=== PATIENT | male | born 1975 | race Caucasian/White ===

== ENCOUNTER 2019-02-11 03:29 | Emergency (ER) | payer BC ==
[~2019-02-11] VITALS: Ht 188 cm; Wt 131.5 kg
[~2019-02-11 03:29] MED LIST: BACTRIM DS TAB1 EACH PO; FLEXERIL10 MG PO; GABAPENTIN100 MG PO; IBUPROFEN800 MG PO; KEFLEX500 MG PO; LOVASTATIN20 MG PO; NAPROSYN500 MG PO; NORCO 5-325 TA1 EACH PO; VITAMIN D3400 UNIT PO; WAL-PROFEN200 MG PO; ZITHROMAX250 MG PO
--- OUTSIDE RECORDS SUMMARY | 2019-02-11 03:32 | XMS ---
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 Patrica VISIT COUNT (12 MO.) 2 Gissel Lozano TOTAL 5 NOTE: Visits indicate total known visits. 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 [facility] [place] TYPE: Emergency DIAGNOSES: - poss hernia - Groin Pain - Unilateral inguinal hernia, without obstruction or gangrene, not specified as recurrent 07/16/2018 01:46 [facility] [place] TYPE: Emergency COMPLAINT: - LOW BACK PAIN DIAGNOSES: - Other retirement (current) drug therapy - Low back pain - Allergy status to other drugs, medicaments and biological substances status - Spinal stenosis, lumbar region without neurogenic claudication 03/01/2018 18:41 [facility] DIAGNOSES: - Noninfective gastroenteritis and colitis, unspecified - Disease of anus and rectum, unspecified - Abdominal Pain - abd pain INPATIENT VISIT TRACKING (12 MO.) No inpatient visits to display in this time frame [email or web address]
[2019-02-11] MEDS ORDERED: PERCOCET 5-3251 EACH PO (05:35)
[2019-02-11] MEDS ORDERED: FLOMAX0.4 MG PO (05:35)
== END 2019-02-11 05:50 | disposition home or self-care (01) ==
LOC: ED 03:29
DX: N20.1 Calculus of ureter (principal); Z87.442 Personal history of urinary calculi; Z88.8 Allergy status to other drugs, medicaments and biological substances; Z79.899 Other long term (current) drug therapy
CPT/HCPCS: 72131; 74176; 81001; 96372; 99284-25; J1885

== ENCOUNTER 2019-09-01 15:16 | Emergency (ER) | payer BC ==
[~2019-09-01] VITALS: Ht 188 cm; Wt 131.5 kg
--- OUTSIDE RECORDS SUMMARY | ~2019-09-01 | XMS | Encounter Summary ---
Demographics + + + | Address | [address] | | | [place] [address] | + + + | Home Phone | | + + + | Preferred Language | Unknown | + + + | Marital Status | | + + + | Adventist Affiliation | Unknown | + + + | Race | Unknown | + + + | Ethnic Group | Unknown | + + + Author + + + | Author | [facility] | | | and [place] | + + + | Organization | [facility] | | | and [place] | + + + | Address | Unknown | + + + | Phone | Unavailable | + + + Support + + + + + | Name | Relationship | Address | Phone | + + + + + | Alma Gramajo | ECON | [address] | | | | | [place] [address] | | + + + + + Care Team Providers + +------+ + | Care Optometric Tech Name | Role | Phone | + +------+ + | Priyanka Sal PA-C | PCP | | + +------+ + Encounter Details +--------+ + + + + | Date | Type | Department | Care Team | Description | +--------+ + + + + | 09/15/ | Orders Only | [facility] [place] | Emil Garcia, | Back pain, | | 2016 | | NEUROSURGERY [address] | DO [address] | unspecified back | | | | [address] | [address] [place], [place] | pain laterality, | | | | [place], [place] | [address] | unspecified location | | | | [address] | | (Primary Dx) | | | | [phone] | | | +--------+ + + + + Social History + +-------+ +--------+------+ | Tobacco Use | Types | Packs/Day | Years | Date | | | | | Used | | + +-------+ +--------+------+ | Never Smoker | | | | | + +-------+ +--------+------+ + + +---------+ + | Alcohol Use | Drinks/Week | oz/Week | Comments | + + +---------+ + | No | | | | + + +---------+ + + + + | Sex Assigned at | Date Recorded | | | | + + + | Not on file | | + + + + + + + | Job Start Date | Occupation | Industry | + + + + | Not on file | Not on file | Not on file | + + + + + + + + | Travel History | Travel Start | Travel End | + + + + + + | No recent travel history available. | + + documented as of this encounter Plan of Treatment Not on filedocumented as of this encounter Results XR Lumbar Spine 4 + Vw (09/18/2015 2:24 PM PST) + + | Specimen | + + | | + + + + + | Narrative | Performed At | + + + | XR LUMBAR SPINE 4 + VW. 09/18/2015 2:24 PM HISTORY: back pain . | [facility] | | COMPARISON: CT lumbar spine 08/24/2015 and lumbar spine x-ray | [facility] | | 11/25/2013 FINDINGS: Posterior spinal fusion hardware again seen | [facility] | | at the levels of T11-T12, with disc spacer at the intervening level, | - IMAGING | | without evidence of hardware complication or subsidence. Vertebral | | | body alignment is maintained at the fused levels. There is | | | exaggeration of the lumbar lordosis. There is retrolisthesis of L2 on | | | L3 on the upright neutral view, which is stable on the flexion view | | | and increases on the extension view. There is degenerative disc | | | disease, greater in the upper lumbar spine. Vertebral body heights | | | are maintained. Facet degenerative hypertrophy, greater in the lower | | | lumbar spine. IMPRESSION - Degenerative disc disease and | | | spondylotic change. Exaggeration of the lumbar lordosis. | | | Retrolisthesis of L2 on L3, stable on the flexion view and increasing | | | on the extension view. Dictated and Signed by: Rico Landers | | | Electronically signed: 09/18/2015 5:05 PM | | + + + + + | Procedure Note | + + | Raoul, Rad Results In - 09/18/2015 5:09 PM PST XR LUMBAR SPINE 4 + VW. 09/18/2015 2:24 | | PMHISTORY: back pain . COMPARISON: CT lumbar spine 08/24/2015 and lumbar spine x-ray | | 11/25/2013FINDINGS:Posterior spinal fusion hardware again seen at the levels of T11-T12, | | with discspacer at the intervening level, without evidence of hardware complication | | orsubsidence. Vertebral body alignment is maintained at the fused levels.There is | | exaggeration of the lumbar lordosis.There is retrolisthesis of L2 on L3 on the upright | | neutral view, which is stableon the flexion view and increases on the extension | | view.There is degenerative disc disease, greater in the upper lumbar spine. Vertebral | | body heights are maintained.Facet degenerative hypertrophy, greater in the lower lumbar | | spine.IMPRESSION -Degenerative disc disease and spondylotic change.Exaggeration of the | | lumbar lordosis.Retrolisthesis of L2 on L3, stable on the flexion view and increasing on | | theextension view.Dictated and Signed by: Rico Landers MD Electronically signed: | | 09/18/2015 5:05 PM | |There is degenerative disc disease, greater in the upper lumbar spine. | |Vertebral body heights are maintained. | |Facet degenerative hypertrophy, greater in the lower lumbar spine. | | | | | |IMPRESSION - | |Degenerative disc disease and spondylotic change. | |Exaggeration of the lumbar lordosis. | |Retrolisthesis of L2 on L3, stable on the flexion view and increasing on the | |extension view. | | | |Dictated and Signed by: Rico Landers MD | | Electronically signed: 09/18/2015 5:05 PM | + + + + + + + | Performing | Address | City/State/Zipcode | Phone Number | | Organization | | | | + + + + + | [facility] | [address] | [place] | [phone] | | [facility] | | [address] | | | - IMAGING | | | | + + + + + documented in this encounter Visit Diagnoses + + | Diagnosis | + + | Back pain, unspecified back pain laterality, unspecified location - Primary | + + documented in this encounter"
--- OUTSIDE RECORDS SUMMARY | ~2019-09-01 | XMS | Encounter Summary ---
Demographics + + + | Address | [address] | | | [place] [address] | + + + | Home Phone | | + + + | Preferred Language | Unknown | + + + | Marital Status | | + + + | Judaism Affiliation | Unknown | + + + | Race | Unknown | + + + | Ethnic Group | Unknown | + + + Author + + + | Author | [facility] | | | and [place] | + + + | Organization | [facility] | | | and [place] | + + + | Address | Unknown | + + + | Phone | Unavailable | + + + Support + + + + + | Name | Relationship | Address | Phone | + + + + + | Alma Gramajo | ECON | [address] | | | | | [place] [address] | | + + + + + Care Team Providers + +------+ + | Care Rough Planer Tender Name | Role | Phone | + +------+ + | Priyanka Sal PA-C | PCP | | + +------+ + Reason for Visit + + + | Reason | Comments | + + + | Procedure | Changes | + + + Encounter Details +--------+ + + + + | Date | Type | Department | Care Team | Description | +--------+ + + + + | 01/07/ | Telephone | [facility] | Emil Garcia, | Procedure (Changes ) | | 2017 | | NEUROSURGERY [address] | DO [address] | | | | | [address] | [address] [place], [place] | | | | | [place], [place] | [address] | | | | | [address] | | | | | | [phone] | | | +--------+ + + + + Social History + +-------+ +--------+------+ | Tobacco Use | Types | Packs/Day | Years | Date | | | | | Used | | + +-------+ +--------+------+ | Never Smoker | | | | | + +-------+ +--------+------+ + +---+---+---+ | Smokeless Tobacco: | | | | | Current User | | | | + +---+---+---+ + + | Comments: 2 cans of chew/week. | + + + + +---------+ + | Alcohol Use [...] Not on filedocumented as of this encounter Visit Diagnoses Not on filedocumented in this encounter"
--- OUTSIDE RECORDS SUMMARY | ~2019-09-01 | XMS | Encounter Summary ---
Demographics + + + | Address | [address] | | | [place] [address] | + + + | Home Phone | | + + + | Preferred Language | Unknown | + + + | Marital Status | | + + + | Synagogue Affiliation | Unknown | + + + | Race | Unknown | + + + | Ethnic Group | Unknown | + + + Author + + + | Author | [facility] | | | and [place] | + + + | Organization | [facility] | | | and [place] | + + + | Address | Unknown | + + + | Phone | Unavailable | + + + Support + + + + + | Name | Relationship | Address | Phone | + + + + + | Alma Gramajo | ECON | [address] | | | | | [place] [address] | | + + + + + Care Team Providers + +------+ + | Care Production Pattern Maker Name | Role | Phone | + +------+ + | Priyanka Sal PA-C | PCP | | + +------+ + Reason for Visit +---------+ + | Reason | Comments | +---------+ + | Post Op | 4W PO | +---------+ + Encounter Details +--------+---------+ + + + | Date | Type | Department | Care Team | Description | +--------+---------+ + + + | 03/13/ | Office | [facility] | Berhane Chavez, | S/P lumbar fusion | | 2017 | Visit | [address]UR[address]UR[address]ERY [address] | PA-C [address] | (Primary Dx) | | | | [address] | [address] [place] | | | | | [place], [place] | [place] [address] | | | | | [address] | [phone] | | | | | [phone] | | | +--------+---------+ + + + Social History + +-------+ [...] + + documented as of this encounter Last Filed Vital Signs + + + + + | Vital Sign | Reading | Time Taken | Comments | + + + + + | Blood Pressure | 120/69 | 03/13/2017 1:37 PM | | | | | PDT | | + + + + + | Pulse | 66 | 03/13/2017 1:37 PM | | | | | PDT | | + + + + + | Temperature | - | - | | + + + + + | Respiratory Rate | - | - | | + + + + + | Oxygen Saturation | - | - | | + + + + + | Inhaled Oxygen | - | - | | | Concentration | | | | + + + + + | Weight | 132 kg (291 lb) | 03/13/2017 1:37 PM | | | | | PDT | | + + + + + | Height | 188 cm (6' 2") | 03/13/2017 1:37 PM | | | | | PDT | | + + + + + | Body Mass Index | 37.36 | 03/13/2017 1:37 PM | | | | | PDT | | + + + + + documented in this encounter Functional Status + + + + | Functional Status | Response | Date of Assessment | + + + + | Are you deaf or do you have serious | No | 02/09/2017 | | difficulty hearing? | | | + + + + | Are you blind or do you have serious | No | 02/09/2017 | | difficulty seeing, even when wearing | | | | glasses? | | | + + + + | Do you have serious difficulty walking or | No | 02/09/2017 | | climbing stairs? (5 years old or older) | | | + + + + | Do you have difficulty dressing or bathing? | No | 02/09/2017 | | (5 years old or older) | | | + + + + | Because of a physical, mental, or emotional | No | 02/09/2017 | | condition, do you have difficulty doing | | | | errands alone such as visiting a doctor's | | | | office or shopping? [15 years old or | | | | older)] | | | + + + + + + + + | Cognitive Status | Response | Date of Assessment | + + + + | Because of a physical, mental, or emotional | No | 02/09/2017 | | condition, do you have serious difficulty | | | | concentrating, remembering, or making | | | | decisions? (5 years old or older) | | | + + + + documented as of this encounter Patient Instructions Patient Instructions Alecia Burns, Manager Metrology - 03/13/2017 1:30 PM PDTYou may no w slowly increase your lifting up to 15 pounds as tolerated. You may now reach overhead but it should only be 1-2 pounds. Please refrain from twisting for the next 8 weeks. Lastly, you will see Dr. Garcia in approximately 2 months where a new x-ray will be taken at that time. In the meantime, you can also begin to wean out of your brace as instructed below. SPINE BRACE WEANING PROTOCOL (5 WEEKS) Below are instructions for weaning your brace. You can move through the weeks slower if yo u feel the need to do so, but the overall goal is to get you out of the brace slowly over th e next several weeks. WEEK 1 If you have been using your brace for activities like sleeping, showering, do not use the [employer] for these activities any longer but continue using it for everything else. WEEK 2 Stop wearing your brace for sitting and short distance walking. You should use the brace f or anything more involved. WEEK 3 Stop using the brace for medium distance walking. You can bend and twist your back but sti ll proceed slowly with these activities. WEEK 4 Stop using the brace for everything but the most difficult tasks. You should now be able to go on long walks and lift more weight as directed. Add more bending and twisting as tolera augusto. WEEK 5 Stop using the brace for daily use. I would encourage you to use the brace in the future f or activities that you know might aggravate your back or cause pain. 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 documented in this encounter Progress Notes Berhane Chavez PA - 03/13/2017 1:30 PM PDTFormatting of this note might be different f rom the original. LAMIN Lindsay [address] [facility], [address] [place], [place] [address] FAX: NEUROSURGERY FOLLOW-UP CHIEF COMPLAINT: Chief Complaint Patient presents with Post Op 4W PO HISTORY OF PRESENT ILLNESS: The patient is a 41 y.o. male that had a lumbar fusion for chente k and leg symptoms around 4 weeks ago. He returns and overall is doing well. The patient c omplains of mild back and leg discomfort. The patient has been walking as much as directed . He is still taking pain medications at this point. The patient states he is taking pain medication at bedtime because it helps him relax and decrease his pain. The patient has had no issues with his surgical site. CURRENT MEDICATIONS: Current Outpatient Prescriptions Medication Sig Dispense Refill Ergocalciferol (VITAMIN D2) 2000 units TABS Take 2,000 Units by mouth Daily. lactulose 10 g/15 mL liquid Take 15-30 mLs by mouth Daily as needed for Constipation. 2 40 mL 2 lovastatin (MEVACOR) 20 mg tablet Take 40 mg by mouth nightly. oxyCODONE 10 MG TABS Take 1-2 tablets by mouth every 4 hours as needed for Pain (muscle spasm). 120 tablet 0 No current facility-administered medications for this visit. ALLERGIES: Allergies Allergen Reactions Diazepam Anaphylaxis and Hives SOCIAL HISTORY: The patient reports that he has never smoked. He uses smokeless tobacco. He reports that gabriele whitten does not drink alcohol or use drugs. INTERIM PHYSICAL EXAMINATION: Blood pressure 120/69, pulse 66, height 1.88 m (6' 2"), weight 132 kg (291 lb). Body mass i ndex is 37.36 kg/m. GENERAL: Zaheer Gramajo is in no acute distress with unlabored respirations. SPINE: The patient s incisions are healing well without drainage, significant erythema, o r discharge. EXTREMITIES: No lower extremity edema. NEUROLOGICAL EXAMINATION: MENTAL STATUS: The patient is awake, alert, and oriented. He follows simple and complex commands MOTOR EXAM: Motor strength is 5/5. This is improved when compared to the preoperative exam . SENSORY EXAM: The sensory examination is unchanged when compared to the preoperative exam. REVIEW OF SYSTEMS GENERALLY: No fever, no night sweats, no anemia, + fatigue, no recent profound weight larry nges. EYES: No eye problems, no use of corrective lenses, no eye injury, no double vision, no bl indness. EARS, NOSE, AND THROAT: No changes in taste or smell, no hearing difficulty, no ringing in the ears, no ear drainage, no dizziness, no voice changes, no difficulty swallowing, no sig nificant snoring, no sleep apnea, no sinus problems, no major dental work. NEUROLOGICALLY: Please see the review of systems discussed above in the history of present illness. In addition, the patient has numbness and pain of legs, weakness, coordination di fficulty, change in walk, pain in back, shaking, heacheas. PSYCHIATRIC: No depression, no sleep disorders, no anxiety, no bipolar disorder, no psycho tic episodes. CARDIOVASCULAR: No heart attacks, no heart murmur, no heart fluttering, no chest pain, + a nkle swelling. LUNG DISEASE: No shortness of breath, no cough, no tuberculosis, no bloody cough, no asth ma, no emphysema/COPD. GASTROINTESTINAL: No bowel disease, no nausea or vomiting, no rectal bleeding, no constipa tion, no stool incontinence, no liver disease, no gallbladder disease, + abdominal pain, no ulcers. KIDNEY DISEASE: No urinary frequency, no painful or difficult urination, no incontinence. ENDOCRINE: No diabetes, no thyroid disease, no osteopenia or osteoporosis, no breast drain age. SKIN: No breast lumps, no skin changes, + rashes, + itches. HEMATOLOGIC/LYMPHATIC: No enlarged lymph nodes, no easy or unusual bleeding, no personal h istory of cancer. RHEUMATOLOGIC: No joint arthritis, no rheumatoid arthritis. RADIOGRAPHIC REVIEW: The patient s x-rays show stable instrumentation and alignment and were reviewed with the patient today. There have been no interval changes since the immediate postoperative films . Complete fusion has not yet occurred, but this is normal and would not be expected at thi s time. ASSESSMENT: Encounter Diagnosis Name Primary? 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 The patient can see some improvements but continues to recover from recent surgery. I increased the patient s activities now allowing 15 pound lifting. The patient and also will begin the process of brace weaning. They should continue regular exercise and strengt hening with the hope that they can avoid additional surgery. We discussed that we can provide pain medications for up to 90 days after their surgical da te. We discussed the need to continue tapering pain medication. If they need longer term p ain medication, they should begin working on either pain management or with the primary care provider. I am hoping to see improvement over the coming weeks to months and plan to continue to foll ow this patient. The patient will follow-up in clinic in around 8 weeks for re-evaluation. ELECTRONICALLY SIGNED BY: LAMIN Lindsay, 03/13/2017 14:03 documented in this encounter Plan of Treatment Not on filedocumented as of this encounter Results XR Lumbar Spine 2 or 3 Vw (05/28/2017 7:38 AM PDT) + + | Specimen | + + | | + + + + + | Narrative | Performed At | + + + | EXAM:XR LUMBAR SPINE 2 OR 3 VW CLINICAL HISTORY: Postop | [facility] | | COMPARISON: Lumbar spine radiograph dating to February 05, 2017 | | | FINDINGS: Posterior and interbody fusion changes at L3-L4. Intact | | | hardware. No change in position of the interbody graft markers. | | | No change in spinal alignment. No interval compression | | | deformities. Calcification projects over the left renal shadow. | | | IMPRESSION - No radiographic evidence for an interval | | | complication. Dictated and Signed by: Aj Monahan MD | | | Electronically signed: 05/28/2017 8:28 AM | | + + + + + | Procedure Note | + + | Deo Silveira Results In - 05/28/2017 8:31 AM PDT EXAM:XR LUMBAR SPINE 2 OR 3 VW | | | | CLINICAL HISTORY: Postop | | | | COMPARISON: Lumbar spine radiograph dating to February 05, 2017 | | | | FINDINGS: Posterior and interbody fusion changes at L3-L4. Intact hardware. No | | change in position of the interbody graft markers. No change in spinal | | alignment. No interval compression deformities. Calcification projects over | | the left renal shadow. | | | | IMPRESSION - | | | | No radiographic evidence for an interval complication. | | | | Dictated and Signed by: Aj Monahan MD | | Electronically signed: 05/28/2017 8:28 AM | + + + +---------+ + + | Performing | Address | City/State/Zipcode | Phone Number | | Organization | | | | + +---------+ + + | [facility] | | | | + +---------+ + + documented in this encounter Visit Diagnoses + + | Diagnosis | + + | S/P lumbar fusion - Primary Arthrodesis status | + + documented in this encounter
--- OUTSIDE RECORDS SUMMARY | ~2019-09-01 | XMS | Encounter Summary ---
Demographics + + + | Address | [address] | | | [place] [address] | + + + | Home Phone | | + + + | Preferred Language | Unknown | + + + | Marital Status | | + + + | Jew Affiliation | Unknown | + + + | Race | Unknown | + + + | Ethnic Group | Unknown | + + + Author + + + | Author | [facility] | | | and [place] | + + + | Organization | [facility] | | | and [place] | + + + | Address | Unknown | + + + | Phone | Unavailable | + + + Support + + + + + | Name | Relationship | Address | Phone | + + + + + | Alma Gramajo | ECON | [address] | | | | | [place] [address] | | + + + + + Care Team Providers + +------+ + | Care Stunt Person Name | Role | Phone | + +------+ + | Priyanka Sal PA-C | PCP | | + +------+ + Reason for Referral Diagnostic/Screening (Routine) +--------+--------+ + + + + | Status | Reason | Specialty | Diagnoses / | Referred By | Referred To | | | | | Procedures | Contact | Contact | +--------+--------+ + + + + | Closed | | Radiology | Diagnoses | Sucharda, | [facility] | | | | | Fusion of | Berhane Ramon, | [address] | | | | | spine of | MIKE [address] | [place], | | | | | thoracic | [address] | [place] | | | | | region | [address] | [address] | | | | | Spondylolist | [place], | Phone: | | | | | hesis of | [place] [address] | [phone] | | | | | lumbar | Phone: | Fax: | | | | | region | [phone] | [phone] | | | | | Myelopathy | Fax: | | | | | | ([facility]) | [phone] | | | | | | Procedures | | | | | | | MRI Lumbar | | | | | | | Spine wo | | | | | | | Contrast | | | +--------+--------+ + + + + Diagnostic/Screening (Routine) +--------+--------+ + + + + | Status | Reason | Specialty | Diagnoses / | Referred By | Referred To | | | | | Procedures | Contact | Contact | +--------+--------+ + + + + | Closed | | Radiology | Diagnoses | Sucharda, | [facility] | | | | | Fusion of | Berhane E, | [address] | | | | | spine of | PA-C [address] | [place], | | | | | thoracic | [address] | [place] | | | | | region | [address] | [address] | | | | | Spondylolist | [place], | Phone: | | | | | hesis of | [place] [address] | [phone] | | | | | lumbar | Phone: | Fax: | | | | | region | [phone] | [phone] | | | | | Myelopathy | Fax: | | | | | | ([facility]) | [phone] | | | | | | Procedures | | | | | | | MRI Thoracic | | | | | | | Spine wo | | | | | | | Contrast | | | +--------+--------+ + + + + Reason for Visit + + + | Reason | Comments | + + + | Follow-up | Back pain Long return | + + + Evaluate & Treat (Routine) +--------+--------+ + + + + | Status | Reason | Specialty | Diagnoses / | Referred By | Referred To | | | | | Procedures | Contact | Contact | +--------+--------+ + + + + | Closed | | Neurosurgery | Diagnoses | Jonelle, | Radha, | | | | | | MIKE Mathew | Emil Aleman DO | | | | | Radiculopath | [address] | [address] | | | | | y, lumbar | [place] | [address] | | | | | region | [address] | [place] | | | | | Procedures | [place], | [address] Phone: | | | | | [place] OFFICE | [place] [address] | [phone] | | | | | CONSULTATION | Phone: | Fax: | | | | | NEW/ESTAB | [phone] | [phone] | | | | | PATIENT 60 | Fax: | | | | | | MIN OK TO | [phone] | | | | | | SCHEDULE | | | +--------+--------+ + + + + Encounter Details +--------+---------+ + + + | Date | Type | Department | Care Team | Description | +--------+---------+ + + + | 01/18/ | Office | [facility] | Scott Berhane Fish, | Fusion of spine of | | 2016 | Visit | NEUROSURGERY [address] | PA-C [address] | thoracic region | | | | [address] | [address] [place] | (Primary Dx); | | | | [place], [place] | [place] [address] | Spondylolisthesis of | | | | [address] | [phone] | lumbar region; | | | | [phone] | | Myelopathy (HCC) | +--------+---------+ + + + Social History [...] | | + +---+---+---+ + + | Tobacco Cessation: Ready to Quit: No | + + + + +---------+ + [...] + + + | Blood Pressure | 128/80 | 09/18/2015 2:52 PM | | | | | PST | | + + + + + | Pulse | 64 | 09/18/2015 2:52 PM | | | | | PST | | + + + + + | Temperature | - | - | | + + + + + | Respiratory Rate | 20 | 09/18/2015 2:52 PM | | | | | PST | | + + + + + | Oxygen Saturation | - | - | | + + + + + | Inhaled Oxygen | - | - | | | Concentration | | | | + + + + + | Weight | 136.1 kg (300 lb) | 09/18/2015 2:52 PM | | | | | PST | | + + + + + | Height | 188 cm (6' 2") | 09/18/2015 2:52 PM | | | | | PST | | + + + + + | Body Mass Index | 38.52 | 09/18/2015 2:52 PM | | | | | PST | | + + + + + documented in this encounter Patient Instructions Patient Instructions Berhane Chavez PA - 09/18/2015 3:37 PM PSTPlease continue to mode rate your activities as tolerated. Please continue with the light duty restrictions that yo u have been given. We will get an MRI of your thoracic and lumbar spine. I will see you af ter the studies are done to review the studies and discuss treatment options. documented in this encounter Progress Notes Berhane Chavez PA - 09/18/2015 3:18 PM PSTFormatting of this note might be different f rom the original. LAMIN Lindsay [address] [facility], [address] [place] [address] FAX: NEUROSURGERY FOLLOW-UP CHIEF COMPLAINT: Chief Complaint Patient presents with Follow-up Back pain Long return HISTORY OF PRESENT ILLNESS: The patient is a 40 y.o. male that had a T11-T12 fusion by Dr. Radha ty in 2013. At this time patient had significant disc rupture that caused myelopa thy. Prior to surgery patient felt that there was tingling in the affected leg. After surg johnathan the sensation in his leg improved but he felt that there was weakness. Symptoms ultimat andrae partially improved and was functional but quadriceps weakness is always present. Patien hal continued with physical therapy and has gone at least once a week since surgery. Patient' s daily symptoms were stable until August 2014 when he was lifting a box at his job at the [employer]. While lifting this box and twisting he felt a pop in his back and felt sudden onset of severe pain and pain shooting down both legs. Since August his left leg s ymptoms have gone. However, he continues to have right leg pain. Although he did have weak ness after his last surgery he did not have much pain in the right leg. Patient has a hard time specifying the exact location of pain in his leg. The pain seems to encompass his enti re leg. The pain in his leg is intermittent and is described as numbing tingling and aching . The pain in his back is constant and is rated as moderate. He has continued with physica l therapy and has been taking anti-inflammatories, muscle relaxers, and intermittent narcoti c medication. These do give him partial temporary relief. He is currently on light duty an d has only been handling objects up to about 5 pounds, mostly letters and magazines. Leilani khan, he reports that his written restrictions allow him to lift 40 pounds. 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 gabapentin (NEURONTIN) 300 mg capsule Take 300 mg by mouth Once a week. HYDROcodone-acetaminophen (NORCO) 5-325 mg per tablet Take 1-2 tablets by mouth every 4 hours as needed for Pain. 20 tablet 0 ibuprofen (ADVIL,MOTRIN) 600 MG tablet lovastatin (MEVACOR) 20 mg tablet No current facility-administered medications for this visit. ALLERGIES: No Known Allergies SOCIAL HISTORY: The patient reports that he has never smoked. He uses smokeless tobacco. He reports that h fish does not drink alcohol or use illicit drugs. FAMILY HISTORY: Family History Problem Relation Age of Onset Other (See Comment) Mother Heart problems Cancer Paternal Grandmother Other (See Comment) Paternal Grandfather Heart problems INTERIM PHYSICAL EXAMINATION: Blood pressure 128/80, pulse 64, resp. rate 20, height 1.88 m (6' 2"), weight 136.079 kg (3 00 lb). Body mass index is 38.5 kg/(m^2). GENERAL: Zaheer Gramajo is in no acute distress with unlabored respirations. HEENT: HEAD/FACE: Normocephalic and atraumatic. There are no areas of recent trauma. CHEST: Clear to ausculation without crackles or wheeze. HEART: Regular rate and rhythm without murmurs. SPINE: The patient s incisions are healed well. There is no evidence of drainage or infe ction. EXTREMITIES: No lower extremity edema. NEUROLOGICAL EXAMINATION: MENTAL STATUS: The patient is awake, alert, and oriented. He follows simple and complex commands MOTOR EXAM: Motor strength is 4/5. This is diminished from the one month postoperative exa m. SENSORY EXAM: The sensory examination diminished from the one month postop exam REFLEXES: Reflexes are unchanged from his preoperative history and physical. NEUROLOGICAL EXAM: MENTAL STATUS: The patient is awake, alert, and oriented. He follows simple and complex commands. His speech is fluent, he comprehends speech well, and he repeats well. He has no apparent deficits with short or prison memory. CRANIAL NERVES: II: Acuity is intact. Enamorado are full to confrontation. III, IV, : The pupils are reactive. Extraocular movements are intact. No ptosis is note d. V: Facial sensation is intact and symmetric. VII: Facial movements are symmetric. VIII: Hearing is intact bilaterally. IX, X: The uvula and palate move appropriately. XI: Shrug is equal bilaterally. XII: Tongue protrusion is midline. MOTOR EXAM: (5 IS NORMAL) * Indicates pain limited MUSCLE/ MOVEMENT: RIGHT LEFT Deltoids 5 5 Biceps 5 5 Triceps 5 5 Wrist Flexion 5 5 Wrist Extension 5 5 Median Intrinsics 5 5 Ulnar Intrinsics 5 5 Ball Rolling Machine Operator Strength 5 5 Hip Flexion 4 5 Hip Extension 5 5 Knee Flexion 4 5 Knee Extension 4+ 5 Dorsiflexion 4 5 Extensor Hallicus Longus 5 5 Plantarflexion 4+ 5 SENSORY EXAM: Sensory exam shows diminished sensation to light touch or pain throughout the right lower extremity. REFLEXES: (2 OR 2+ IS NORMAL) REFLEX: RIGHT LEFT BICEPS 2+ 2+ BRACHIORADIALIS 2+ 2+ TRICEPS 2+ 2+ PATELLAR 2+ 2+ ACHILLES absent 2+ ROY'S ABSENT ABSENT PLANTAR DOWNGOING DOWNGOING GAIT: Gait is steady. PERIPHERAL NERVE/MISC: Tinel is negative at the wrists and elbows bilaterally. Phalen is negative. Straight leg raise is negative bilaterally. Javier's test of the hips is negative bilaterally. Significant right foot clonus with sustained repetitive pulsations. History of myelopathy was noted on exam prior to surgery. I suspect this clonus was present prior as well but was unable to identify specific documentation with regards to this. RADIOGRAPHIC REVIEW: The patient s postoperative x-rays show stable instrumentation and alignment and were rev iewed with the patient today during the visit. There is no evidence of hardware failure at the T11-T12 fusion site. A lumbar CAT scan was obtained on August 24. However, this very poorly captures the hardware and only shows a portion of the T12 screws. For the portion t hat is visible, no evidence of hardware failure is appreciated. Flexion and extension views from September 18, 2015 show evidence of spondylolisthesis L2-L3 area and L1-L2 there is moderate degenerative disc disease with disc space narrowing. I hav e compared these with lumbar films prior to surgery and no evidence of spondylolisthesis was present. ASSESSMENT: Encounter Diagnoses Name Primary? Fusion of spine of thoracic region Yes Spondylolisthesis of lumbar region Myelopathy (HCC) Past Medical History Diagnosis Date H/O blood clots H/O spinal cord compression Gout Cauda equina syndrome (HCC) Constipation Constipation, outlet dysfunction Hyperlipoproteinemia Lumbar radiculopathy Male erectile disorder due to physical condition Obesity Spinal stenosis, lumbar Deep venous thrombosis (HCC) Lower extremities Vitamin D deficiency PLAN: Overall, the patient is doing fair. There is definite right leg weakness that was previous ly recorded as normal after surgery. Furthermore, patient still has fairly significant myel opathic findings his right lower extremity. This, in combination with new recent trauma sup ports the need for further investigation. Unfortunately the CAT scan of the lumbar spine wa s not very helpful for us. I have gone ahead and ordered an MRI of his thoracic and lumbar spine. Patient will return to our office to review studies and discuss treatment options. I would recommend that he stay on light duty. The actual activities that involve lifting o f 5-7 pounds is probably appropriate. However I would not encourage him to be lifting up to 40 pounds as he reports his current restrictions are listed. Furthermore, patient has been cautioned against doing any lifting overhead. If there are any questions, I will be happy to see him on an as-needed basis. Otherwise, we will proceed as recommended. ELECTRONICALLY SIGNED BY: LAMIN Lindsay, 09/19/2015 7:52 documented in this encounter Plan of Treatment Not on filedocumented as of this encounter Results MRI Lumbar Spine wo Contrast (04/16/2016 3:12 PM PDT) + + | Specimen | + + | | + + + + + | Narrative | Performed At | + + + | MRI LUMBAR SPINE WITHOUT CONTRAST: 04/16/2016 2:47 PM CLINICAL | [facility] | | HISTORY: Status post thoracic spine fusion with new radicular symptoms | [facility] | | and myelopathy COMPARISON: 05/18/2013, CT lumbar spine 08/24/2015 | [facility] | | and MRI thoracic spine performed this date. TECHNIQUE: In the 3T | - IMAGING | | scanner multiplanar, multisequence imaging of the lumbar spine is | | | performed. FINDINGS: In contrast to designation on prior | | | examinations, there is transitional lumbar anatomy. When counting | | | down from C2 on recent thoracic spine MRI, only 11 rib-bearing | | | thoracic vertebral bodies are present. T12 shows tiny or absent ribs, | | | and there are only 4 lumbar-type vertebral bodies. Because of this, | | | posterior pedicle screw and magali fixation previously referred to as | | | being at T11-T12, is actually at T10-T11. Noting this, for this | | | examination, previously utilized segment numbering is maintained | | | consistent with prior exams, with the last segmented vertebral body | | | referred to as L5. Lumbar alignment is normal. Vertebral body | | | heights are normally maintained. Small hemangioma in L4. No other | | | marrow signal abnormality. Conus medullaris appears normal, | | | extending to L2. Cauda equina nerve roots are mildly thickened, | | | similar to prior. No abnormalities in the included abdomen. L1-L2 | | | and L2-L3: Sagittal images only. Minimal broad-based disc bulge. | | | Central canal appears developmentally narrow. L3-L4: Small | | | circumferential disc bulge. Moderate facet degenerative change. Short | | | pedicles at this level. Severe central canal stenosis (7 mm) with | | | compaction of the cauda equina nerve roots and exclusion of all CSF | | | signal. Degree of stenosis has progressed slightly when compared to | | | prior, because of slightly more prominent disc. L4-L5: Small | | | posterior disc bulge. Moderate facet degenerative changes. Short | | | pedicles at this level. These changes result in moderate central canal | | | stenosis and bilateral subarticular recess narrowing. No change from | | | prior. L5-S1 small broad-based disc bulge. Moderate facet | | | degenerative changes. No central canal stenosis. Mild subarticular | | | recess narrowing. No change from prior. IMPRESSION - 1. Variant | | | spinal anatomy as discussed in detail above. On today's thoracic | | | spine MRI, it was noted that the patient's spinal fusion is at T10-T11 | | | rather than at T11-T12, as suggested when counting segments from | | | below. Despite this discovery, segment numbering utilized on prior | | | lumbar MRIs and CTs is maintained for this exam. 2. | | | Redemonstration of developmentally narrow canal in AP dimension, from | | | L1-L2 to L4-L5. When combined with small broad-based disc bulge this | | | results in severe central canal stenosis at L3-L4, slightly | | | progressive from prior. Also moderate central canal stenosis at | | | L4-L5, unchanged. Dictated and Signed by: Dion Ernandez MD | | | Electronically signed: 04/16/2016 7:24 PM | | + + + + + | Procedure Note | + + | Deo Silveira Results In - 04/16/2016 7:27 PM PDT MRI LUMBAR SPINE WITHOUT CONTRAST: | | 04/16/2016 2:47 PMCLINICAL HISTORY: Status post thoracic spine fusion with new radicular | | symptomsand myelopathyCOMPARISON: 05/18/2013, CT lumbar spine 08/24/2015 and MRI thoracic | | spineperformed this date.TECHNIQUE: In the 3T scanner multiplanar, multisequence | | imaging of the lumbarspine is performed.FINDINGS: In contrast to designation on prior | | examinations, there istransitional lumbar anatomy. When counting down from C2 on recent | | thoracic spineMRI, only 11 rib-bearing thoracic vertebral bodies are present. T12 shows | | tinyor absent ribs, and there are only 4 lumbar-type vertebral bodies. Because ofthis, | | posterior pedicle screw and magali fixation previously referred to as beingat T11-T12, is | | actually at T10-T11. Noting this, for this examination,previously utilized segment | | numbering is maintained consistent with prior exams,with the last segmented vertebral | | body referred to as L5.Lumbar alignment is normal. Vertebral body heights are normally | | maintained.Small hemangioma in L4. No other marrow signal abnormality.Conus medullaris | | appears normal, extending to L2. Cauda equina nerve roots aremildly thickened, similar | | to prior.No abnormalities in the included abdomen.L1-L2 and L2-L3: Sagittal images only. | | Minimal broad-based disc bulge. Centralcanal appears developmentally narrow.L3-L4: | | Small circumferential disc bulge. Moderate facet degenerative change.Short pedicles at | | this level. Severe central canal stenosis (7 mm) withcompaction of the cauda equina | | nerve roots and exclusion of all CSF signal.Degree of stenosis has progressed slightly | | when compared to prior, because ofslightly more prominent disc.L4-L5: Small posterior | | disc bulge. Moderate facet degenerative changes. Shortpedicles at this level. These | | changes result in moderate central canal stenosisand bilateral subarticular recess | | narrowing. No change from prior.L5-S1 small broad-based disc bulge. Moderate facet | | degenerative changes. Nocentral canal stenosis. Mild subarticular recess narrowing. No | | change fromprior.IMPRESSION - 1. Variant spinal anatomy as discussed in detail above. On | | today's thoracicspine MRI, it was noted that the patient's spinal fusion is at T10-T11 | | ratherthan at T11-T12, as suggested when counting segments from below. Despite | | thisdiscovery, segment numbering utilized on prior lumbar MRIs and CTs is maintainedfor | | this exam.2. Redemonstration of developmentally narrow canal in AP dimension, from | | L1-L2to L4-L5. When combined with small broad-based disc bulge this results in | | severecentral canal stenosis at L3-L4, slightly progressive from prior. Also | | moderatecentral canal stenosis at L4-L5, unchanged.Dictated and Signed by: Dion | | MD Awais Electronically signed: 04/16/2016 7:24 PM | |Degree of stenosis has progressed slightly when compared to prior, because of | |slightly more prominent disc. | | | |L4-L5: Small posterior disc bulge. Moderate facet degenerative changes. Short | |pedicles at this level. These changes result in moderate central canal stenosis | |and bilateral subarticular recess narrowing. No change from prior. | | | |L5-S1 small broad-based disc bulge. Moderate facet degenerative changes. No | |central canal stenosis. Mild subarticular recess narrowing. No change from | |prior. | | | |IMPRESSION - | |1. Variant spinal anatomy as discussed in detail above. On today's thoracic | |spine MRI, it was noted that the patient's spinal fusion is at T10-T11 rather | |than at T11-T12, as suggested when counting segments from below. Despite this | |discovery, segment numbering utilized on prior lumbar MRIs and CTs is maintained | |for this exam. | | | |2. Redemonstration of developmentally narrow canal in AP dimension, from L1-L2 | |to L4-L5. When combined with small broad-based disc bulge this results in severe | |central canal stenosis at L3-L4, slightly progressive from prior. Also moderate | |central canal stenosis at L4-L5, unchanged. | | | |Dictated and Signed by: iDon Ernandez MD | | Electronically signed: 04/16/2016 7:24 PM | + + + + + + + | Performing | Address | City/State/Zipcode | Phone Number | | Organization | | | | + + + + + | [facility] | [address] | [place] | [phone] | | [facility] | | [address] | | | - IMAGING | | | | + + + + + MRI Thoracic Spine wo Contrast (04/16/2016 2:46 PM PDT) + + | Specimen | + + | | + + + + + | Narrative | Performed At | + + + | MRI THORACIC SPINE WITHOUT CONTRAST: 04/16/2016 2:16 PM CLINICAL | [facility] | | HISTORY: Status post thoracic spine fusion with new radicular symptoms | [facility] | | and myelopathy COMPARISON: 05/18/2013, chest CT 08/06/2013 and [facility] | | lumbar CT 08/24/2015 TECHNIQUE: In the 3 T scanner, multiplanar, | - IMAGING | | multisequence imaging of the thoracic spine is performed. No contrast | | | utilized. FINDINGS: Posterior pedicle screw and magali and | | | interbody fusion in the lower thoracic spine. On multiple prior | | | examination this level has been referred to as T11-T12. However, when | | | counting down from C2, the fusion is actually across T10-T11 and T12 | | | has no ribs and has been previously designated L1. Fixation | | | hardware shows stable position and appearance. Thoracic alignment is | | | normally maintained. Vertebral body heights are normal. No abnormal | | | marrow signal. Small broad-based disc bulge at T4-T5. No central | | | canal stenosis but the disc does contour the anterior aspect of the | | | cord. Also small broad-based disc bulge at T6-T7, which contacts the | | | ventral aspect of the cord. Extending inferior from the T6-T7 disc | | | interspace, there is prominence of the posterior longitudinal | | | ligament, without central canal stenosis. Metallic artifact obscures | | | the fused levels. Thoracic cord shows normal volume and signal. | | | No abnormalities in the included thoracic regions or paraspinous soft | | | tissues. IMPRESSION - 1. Variant spinal anatomy as discussed | | | above. When counting down from C2, there are only 11 rib-bearing | | | vertebral bodies and the fusion previously referred to as T11-T12 is | | | at T10-T11. Fusion appears stable. 2. Small central disc bulge at | | | T4-T5 and T6-T7, with prominence of the posterior longitudinal | | | ligament from T6-T7 to T7-T8. Dictated and Signed by: Dion Alonzo | | MD Awais Electronically signed: 04/16/2016 7:06 PM | | + + + + + | Procedure Note | + + | Raoul, Rad Results In - 04/16/2016 7:09 PM PDT MRI THORACIC SPINE WITHOUT CONTRAST: | | 04/16/2016 2:16 PMCLINICAL HISTORY: Status post thoracic spine fusion with new radicular | | symptomsand myelopathyCOMPARISON: 05/18/2013, chest CT 08/06/[address] | | 08/24/2015TECHNIQUE: In the 3 T scanner, multiplanar, multisequence imaging of | | thethoracic spine is performed. No contrast utilized.FINDINGS: Posterior pedicle screw | | and magali and interbody fusion in the lower thoracicspine. On multiple prior examination | | this level has been referred to as T11-T12.However, when counting down from C2, the | | fusion is actually across T10-T11 andT12 has no ribs and has been previously designated | | L1.Fixation hardware shows stable position and appearance. Thoracic alignment isnormally | | maintained. Vertebral body heights are normal. No abnormal marrowsignal.Small | | broad-based disc bulge at T4-T5. No central canal stenosis but the discdoes contour the | | anterior aspect of the cord.Also small broad-based disc bulge at T6-T7, which contacts | | the ventral aspect ofthe cord. Extending inferior from the T6-T7 disc interspace, there | | is prominenceof the posterior longitudinal ligament, without central canal | | stenosis.Metallic artifact obscures the fused levels.Thoracic cord shows normal volume | | and signal.No abnormalities in the included thoracic regions or paraspinous soft | | tissues.IMPRESSION -1. Variant spinal anatomy as discussed above. When counting down | | from C2, thereare only 11 rib-bearing vertebral bodies and the fusion previously | | referred toas T11-T12 is at T10-T11. Fusion appears stable.2. Small central disc bulge | | at T4-T5 and T6-T7, with prominence of the posteriorlongitudinal ligament from T6-T7 to | | T7-T8.Dictated and Signed by: Dion Ernandez MD Electronically signed: 04/16/2016 7:06 | | PM | |Also small broad-based disc bulge at T6-T7, which contacts the ventral aspect of | |the cord. Extending inferior from the T6-T7 disc interspace, there is prominence | |of the posterior longitudinal ligament, without central canal stenosis. | |Metallic artifact obscures the fused levels. | | | |Thoracic cord shows normal volume and signal. | |No abnormalities in the included thoracic regions or paraspinous soft tissues. | | | |IMPRESSION - | |1. Variant spinal anatomy as discussed above. When counting down from C2, there | |are only 11 rib-bearing vertebral bodies and the fusion previously referred to | |as T11-T12 is at T10-T11. Fusion appears stable. | | | |2. Small central disc bulge at T4-T5 and T6-T7, with prominence of the posterior | |longitudinal ligament from T6-T7 to T7-T8. | | | |Dictated and Signed by: Dion Ernandez MD | | Electronically signed: 04/16/2016 7:06 PM | + + + + + + + | Performing | Address | City/State/Zipcode | Phone Number | | Organization | | | | + + + + + | [facility] | [address] 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
--- OUTSIDE RECORDS SUMMARY | ~2019-09-01 | XMS | Encounter Summary ---
Demographics + + + | Address | [address] | | | [place] [address] | + + + | Home Phone | | + + + | Preferred Language | Unknown | + + + | Marital Status | | + + + | Denominational Affiliation | Unknown | + + + | Race | Unknown | + + + | Ethnic Group | Unknown | + + + Author + + + | Author | [facility] | | | and [place] | + + + | Organization | [facility] | | | and [place] | + + + | Address | Unknown | + + + | Phone | Unavailable | + + + Support + + + + + | Name | Relationship | Address | Phone | + + + + + | Alma Gramajo | ECON | [address] | | | | | [place] [address] | | + + + + + Care Team Providers + +------+ + | Care Miller First Name | Role | Phone | + [...] of | Berhane Ramon, | [address] | | | | | spine of | [address] | [place], | | | | | thoracic | [address] | [place] | | | | | region | [address] | [address] | | | | | Spondylolist | [place], | Phone: | | | | | hesis of | [place] [address] | [phone] | | | | | lumbar | Phone: | Fax: | | | | | region | [phone] | [phone] | | | | | Myelopathy | Fax: | | | | | | ([facility]) | [phone] | | | | | | Procedures | | | | | | | MRI Thoracic | | | | | | | Spine wo | | | | | | | Contrast | | | +--------+--------+ + + + + Reason for Visit Diagnostic/Screening (Routine) +--------+--------+ + + + + | Status | Reason | Specialty | Diagnoses / | Referred By | Referred To | | | | | Procedures | Contact | Contact | +--------+--------+ + + + + | Closed | | Radiology | Diagnoses | Sucharda, | [facility] | | | | | Fusion of | Berhane E, | [address] | | | | | spine of | PA-C [address] | [place], | | | | | thoracic | [address] | [place] | | | | | region | [address] | [address] | | | | | Spondylolist | [place], | Phone: | | | | | hesis of | [place] [address] | [phone] | | | | | lumbar | Phone: | Fax: | | | | | region | [phone] | [phone] | | | | | Myelopathy | Fax: | | | | | | ([facility]) | [phone] | | | | | | Procedures | | | | | | | MRI Thoracic | | | | | | | Spine wo | | | | | | | Contrast | | | +--------+--------+ + + + + Encounter Details +--------+ + + + + | Date | Type | Department | Care Team | Description | +--------+ + + + + | 04/16/ | Hospital | [facility] | Berhane Chavez, | Fusion of spine of | | 2016 | Encounter | [facility] [address] | PA-C [address] | thoracic region; | | | | [address] [place], | [address] [place] | Spondylolisthesis [place] | | | | [place] [address] | [place] [address] | lumbar region; | | | | [phone] | [phone] | Myelopathy (HCC) | | | | | | | +--------+ + + + [...] + + documented as of this encounter Medications at Time of Discharge + + + +---------+ + + | Medication | Sig | Dispensed | Refills | Start | End Date | | | | | | Date | | + + + +---------+ + + | lovastatin | Take 40 mg by mouth | | 0 | 08/18/20 | | | (MEVACOR) 20 mg | nightly. | | | 15 | | | tablet | | | | | | + + + +---------+ + + | azithromycin | Take 2 tablets by | 6 | 0 | 02/11/20 | | | (ZITHROMAX) 250 mg | mouth daily x 1 day, | tablet | | 16 | 6 | | tablet | then take 1 tablet | | | | | | | by mouth daily x 4 | | | | | | | days. | | | | | + + + +---------+ + + | cholecalciferoL | Take 1,000 Units by | | 0 | | | | (VITAMIN D-3) 1,000 | mouth Daily. | | | | 6 | | units CAPS capsule | | | | | | + + + +---------+ + + | gabapentin | Take 300 mg by mouth | | 0 | | | | (NEURONTIN) 300 mg | Once a week. | | | | 6 | | capsule | | | | | | + + + +---------+ + + | | Take 5-10 mLs by | 180 mL | 0 | 02/11/20 | | | guaiFENesin-codeine | mouth every 4 hours | | | 16 | 6 | | (ROBITUSSIN AC) | as needed for Cough. | | | | | | 100-10 mg/5 mL | | | | | | | liquid | | | | | | + + + +---------+ + + | | Take 1-2 tablets by | 20 | 0 | 01/22/20 | | | HYDROcodone-acetamin | mouth every 4 hours | tablet | | 15 | 6 | | ophen (NORCO) 5-325 | as needed for Pain. | | | | | | mg per tablet | | | | | | + + + +---------+ + + | ibuprofen | Take 600 mg by mouth | | 0 | 09/12/19 | | | (ADVIL,MOTRIN) 600 | every 6 hours as | | | 16 | 7 | | MG tablet | needed. | | | | | + + + +---------+ + + documented as of this encounter Plan of Treatment Not on filedocumented as of this encounter Procedures + +--------+ + + + | Procedure Name | Priori | Date/Time | Associated Diagnosis | Comments | | | ty | | | | + +--------+ + + + | MRI THORACIC SPINE | Routin | 04/16/2016 | Fusion of spine of | Results for this | | WO CONTRAST | e | 2:46 PM | thoracic region | procedure are in the | | | | PDT | Spondylolisthesis of | results section. | | | | | lumbar region | | | | | | Myelopathy (HCC) | | + +--------+ + + + documented in this encounter Results MRI Thoracic Spine wo Contrast (04/16/2016 2:46 PM PDT) + + | Specimen | + + | | + + + + + | Narrative | Performed At | + + + | MRI THORACIC SPINE WITHOUT CONTRAST: 04/16/2016 2:16 PM CLINICAL | [facility] | | HISTORY: Status post thoracic spine fusion with new radicular symptoms | [facility] | | and myelopathy COMPARISON: 05/18/2013, chest CT 08/06/2013 and | [facility] | | lumbar CT 08/24/2015 TECHNIQUE: In [...] to T7-T8. Dictated and Signed by: Dion | | | MD Awais Electronically signed: 04/16/2016 [...] + + | [facility] | [address] 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
--- OUTSIDE RECORDS SUMMARY | ~2019-09-01 | XMS | Encounter Summary ---
Demographics + + + | Address | [address] | | | [place] [address] | + + + | Home Phone | | + + + | Preferred Language | Unknown | + + + | Marital Status | | + + + | Jain Affiliation | Unknown | + + + | Race | Unknown | + + + | Ethnic Group | Unknown | + + + Author + + + | Author | [facility] | | | and [place] | + + + | Organization | [facility] | | | and [place] | + + + | Address | Unknown | + + + | Phone | Unavailable | + + + Support + + + + + | Name | Relationship | Address | Phone | + + + + + | Alma Gramajo | ECON | [address] | | | | | [place] [address] | | + + + + + Care Team Providers + +------+ + | Care Sr. Manager Name | Role | Phone | + [...] + + | 01/07/ | Telephone | [facility] | Emil Garcia, | Procedure (Changes ) | | 2017 | | [address] | DO [address] | | | | | [address] | [address] [place], [place] | | | | | [place], [place] | [address] | | | | | [address] | | | | | | [phone] | | | +--------+ + + + [...]
--- OUTSIDE RECORDS SUMMARY | ~2019-09-01 | XMS | Encounter Summary ---
Demographics + + + | Address | [address] | | | [place] [address] | + + + | Home Phone | | + + + | Preferred Language | Unknown | + + + | Marital Status | | + + + | Sabianism Affiliation | Unknown | + + + | Race | Unknown | + + + | Ethnic Group | Unknown | + + + Author + + + | Author | [facility] | | | and [place] | + + + | Organization | [facility] | | | and [place] | + + + | Address | Unknown | + + + | Phone | Unavailable | + + + Support + + + + + | Name | Relationship | Address | Phone | + + + + + | Alma Gramajo | ECON | [address] | | | | | [place] [address] | | + + + + + Care Team Providers + +------+ + | Care Bass Fisher Name | Role | Phone | + +------+ + | Hudson Nair | PCP | | | MD | | | + +------+ + Reason for Visit +--------+ + | Reason | Comments | +--------+ + | Other | Letter for work | +--------+ + Encounter Details +--------+ + + + + | Date | Type | Department | Care Team | Description | +--------+ + + + + | 09/21/ | Telephone | [facility] | Emil Garcia, | Other (Letter for | | 2013 | | [address] | DO [address] | work ) | | | | [address] | [address] [place], [place] | | | | | [place], [place] | [id number] | | | | | [address] | | | | | | [phone] | | | +--------+ + + + + Social History + +-------+ +--------+------+ | Tobacco Use | Types | Packs/Day | Years | Date | | | | | Used | | + +-------+ +--------+------+ | Never Smoker | | | | | + +-------+ +--------+------+ + + + | Sex Assigned at [...]
--- OUTSIDE RECORDS SUMMARY | ~2019-09-01 | XMS | Encounter Summary ---
Demographics + + + | Address | [address] | | | [place] [address] | + + + | Home Phone | | + + + | Preferred Language | Unknown | + + + | Marital Status | | + + + | Jainism Affiliation | Unknown | + + + | Race | Unknown | + + + | Ethnic Group | Unknown | + + + Author + + + | Author | [facility] | | | and [place] | + + + | Organization | [facility] [...] | | | | | [place] [address] | | + + + + + Care Team Providers + +------+ + | Care Mainframe Systems Administrator Name | Role | Phone | + +------+ + | Priyanka Sal PA-C | PCP | | + +------+ + Reason for Visit + + + | Reason | Comments | + + + | Nephrolithiasis | | + + + | Pre-op Exam | | + + + Encounter Details +--------+---------+ + + + | Date | Type | Department | Care Team | Description | +--------+---------+ + + + | 02/03/ | Office | [facility] | Satinder Elizondo | Nephrolithiasis | | 2018 | Visit | [address] | MD [address] | (Primary Dx); Pre-op | | | | [place], [place] | [place], [place] | evaluation | | | | [address] | [address] | | | | | [phone] | | | +--------+---------+ + + + Social History + +-------+ +--------+------+ | Tobacco Use | Types | Packs/Day | Years | Date | | | | | Used | | + +-------+ +--------+------+ | Never Smoker | | | | | + +-------+ +--------+------+ + +------+---+---+ | Smokeless Tobacco: | Chew | | | | Current User | | | | + +------+---+---+ + + | Comments: 2 cans of [...] + + + | Blood Pressure | 122/78 | 02/03/2018 9:43 AM | | | | | PDT | | + + + + + | Pulse | 68 | 02/03/2018 9:43 AM | | | | | PDT | | + + + + + | Temperature | - | - | | + + + + + | Respiratory Rate | 18 | 02/03/2018 9:43 AM | | | | | PDT | | + + + + + | Oxygen Saturation | - | - | | + + + + + | Inhaled Oxygen | - | - | | | Concentration | | | | + + + + + | Weight | 133 kg (293 lb 3.4 | 02/03/2018 9:43 AM | | | | oz) | PDT | | + + + + + | Height | 188 cm (6' 2") | 02/03/2018 9:43 AM | | | | | PDT | | + + + + + | Body Mass Index | 37.65 | 02/03/2018 9:43 AM | | | | | PDT | [...] of this encounter Patient Instructions Patient Instructions Tre Hackett RN - 02/03/2018 10:00 AM PDTPreoperative Instruct ions Your surgery with Dr. Elizondo has been scheduled for February 12, 2018 at 7:[address] [facility]. Please report to Outpatient [facility] no later than 6:15 AM. REMEMBER: NOTHING TO EAT OR DRINK AFTER MIDNIGHT February 11, 2018. Take all of your usual medications wi th a sip of water. You will need someone to drive you home after surgery. NO ASPIRIN OR ASPIRIN PRODUCTS, NO FISH OIL OR VITAMIN E FOR ONE WEEK PRIOR TO SURGERY. Ty lenol (acetaminophen) and ibuprofen is OK. Call us at [phone] with any questions. [x] Pain management booklet provided to patient. documented in this encounter Progress Notes Satinder Elizondo MD - 02/03/2018 10:00 AM PDTFormatting of this note might be different f rom the original. Chief Complaint Patient presents with Nephrolithiasis Pre-op Exam HPI Zaheer Gramajo is a 42 y.o. male patient of Priyanka Sal PA-C here today for a follow up, Pre-Op exam left nephrolithiasis. Presented to the ED for acute on chronic flank and back pain. Was diagnosed with large tana marilu 12mm stone on the left. Today reports left flank pain. No nausea or vomiting, no fever of chills, describes some urgency and frequency Patient also reports worsening back pain. Assessment Zaheer was seen today for nephrolithiasis and pre-op exam. Diagnoses and all orders for this visit: Nephrolithiasis Pre-op evaluation Plan Large 12 mm renal pelvis stone. Plan for patient to present to the operating room for left ureteroscopy laser lithotripsy and stent placement. We discussed risks of the surgery incl uding infection, bleeding, ureteral perforation, renal hematoma, ureteral stricture and need for further procedures. This document was generated in part using voice recognition software. Frequent wrong word or sound-alike substitutions may have occurred due to the inherent limitations of the voice recognition software. Although I have attempted to edit the content, I have not thoroughly proofread this note, and cloth measurer errors are very likely to occur. 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 Obesity Spinal stenosis, lumbar Vitamin D deficiency Past Surgical History Past Surgical History: Procedure Laterality Date LUMBAR FUSION LUMBAR SPINE SURGERY N/A 02/05/2017 Procedure: L3-4 Extreme Lateral Interbody Fusion; Surgeon: Emil Garcia DO; Location: [facility] MAIN OR LUMBAR SPINE SURGERY 2013 x2 Family History: Family History Problem Relation Age of Onset Other (see comment) Mother Heart problems Cancer Paternal Grandmother Other (see comment) Paternal Grandfather Heart problems Prostate cancer Neg Hx Social History: Social History Social History Marital status: Spouse name: N/A Number of children: N/A Years of education: N/A Social History Main Topics Smoking status: Never Smoker Smokeless tobacco: Current User Types: Chew Comment: 2 cans of chew/week. Alcohol use No Drug use: No Sexual activity: Not Asked Other Topics Concern None Social History Narrative None Allergies Allergen Reactions Diazepam Anaphylaxis and Hives Medications: Current Outpatient Prescriptions: Ergocalciferol (VITAMIN D2) 2000 units TABS, Take 2,000 Units by mouth Daily., Disp: , Rfl: gabapentin (NEURONTIN) 300 mg capsule, Take 1 capsule by mouth 3 times daily. Take one tablet orally on day 1 Take one tablet orally in the morning and the evening on day two Nigel e one tablet with breakfast, lunch, and dinner daily until instructed otherwise., Disp: 90 c apsule, Rfl: 2 HYDROcodone-acetaminophen (NORCO) 5-325 mg per tablet, Take 1-2 tablets by mouth every 6 hours as needed for Pain., Disp: 20 tablet, Rfl: 0 ibuprofen (ADVIL,MOTRIN) 600 MG tablet, Take 600 mg by mouth every 6 hours as needed f or Pain., Disp: , Rfl: lovastatin (MEVACOR) 20 mg tablet, Take 40 mg by mouth nightly., Disp: , Rfl: ROS Gen.: No fever no chills GI: No nausea no vomiting : Frequency and urgency Pulmonary: No coughing no wheezing Cardio: No chest pain or shortness of breath Objective BP 122/78 | Pulse 68 | Resp 18 | Ht 1.88 m (6' 2") | Wt 133 kg (293 lb 3.4 oz) | BMI 3 7.65 kg/m General Appearance: Alert, cooperative, no distress, appears stated age, obese Head: Normocephalic, without obvious abnormality, atraumatic Eyes: conjunctiva/corneas clear, EOM's intact Neck: Supple, symmetrical, no adenopathy, no thryromegaly Lungs: Regular, unlabored breathing MS No CVA tenderness, no spinal tenderness, no scoliosis present Abdomen: Soft, non-tender, no masses Extremities: Extremities normal, atraumatic, no cyanosis, clubbing, or edema Neurologic: Shuffling gate, he drags his right Lower legl, CN 2-12 grossly intact; Strength and sensation grossly normal in bilateral upper and lower extremities with the exception of the right lower leg, where strength is significantly decreased Data: CT scan the abdomen and pelvis October 2017 I personally reviewed and interpreted CT scan images. Significant for large left kidney st one located in the renal pelvis. It does appear like there might be some mild hydronephrosi s of the calyx. No other significant stones are seen. The bladder appears normal. UA shows no evidence of blood Results for orders placed or performed in visit on 12/16/17 POCT Urinalysis Dipstick Automated Result Value Ref Range Color, UA, POC Yellow Yellow, Light Yellow Clarity, UA, POC Clear Glucose, UA, POC Negative Negative Bilirubin, UA, POC Negative Negative Ketones, UA, POC Negative Negative, 100 mg/dL Specific [place], UA, POC 1.020 1.001 - 1.030 Blood, UA, POC Negative Negative pH, UA, POC 7.0 5.0, 6.0, 7.0, 8.0, 5.5, 6.5, 7.5 Protein, UA, POC Trace (A) Negative Urobilinogen, UA, POC 2.0 E.U./dL (A) 0.2, Negative, Normal, < 0.2 mg/dL, 1 mg/dL, < 0.2 E .U./dl, 1.0 E.U./dL, 0.2 mg/dL Nitrite, UA, POC Negative Negative Leukocyte Esterase, UA, POC Negative Negative RED SUB UA ICTOTEST Negative REMARK Lab Results Component Value Date CREA 1.11 12/09/2017 Priyanka Sal PA-C's notes were reviewed in clinic today. No Follow-up on file.. CC: Priyanka Sal PA-C documented in this encounter Plan of Treatment Not on filedocumented as of this encounter Visit Diagnoses + + | Diagnosis | + + | Nephrolithiasis - Primary Calculus of kidney | + + | Pre-op evaluation Preoperative examination, unspecified | + + documented in this encounter
--- OUTSIDE RECORDS SUMMARY | ~2019-09-01 | XMS | Encounter Summary ---
Demographics + + + | Address | [address] | | | [place] [address] | + + + | Home Phone | | + + + | Preferred Language | Unknown | + + + | Marital Status | | + + + | Christianity Affiliation | Unknown | + + + | Race | Unknown | + + + | Ethnic Group | Unknown | + + + Author + + + | Author | [facility] | | | and [place] | + + + | Organization | [facility] | | | and [place] | + + + | Address | Unknown | + + + | Phone | Unavailable | + + + Support + + + + + | Name | Relationship | Address | Phone | + + + + + | Alma Gramajo | ECON | [address] | | | | | [place] [address] | | + + + + + Care Team Providers + +------+ + | Care Food Service Driver Name | Role | Phone | + +------+ + | Priyanka Sal PA-C | PCP | | + +------+ + Reason for Visit + + + | Reason | Comments | + + + | Allergic Reaction | | + + + Encounter Details +--------+ + + + + | Date | Type | Department | Care Team | Description | +--------+ + + + + | 02/16/ | Emergency | [facility] | Bao Faulkner, | Allergic reaction, | | 2017 | | [facility] | MD [address] | initial encounter | | | | CENTER [address] | [place], [place] | (Primary Dx) | | | | [place], [place] | [address] | | | | | [address] | | | | | | [phone] | | | +--------+ + + + [...] + + + | Blood Pressure | 147/80 | 02/16/2017 7:26 PM | | | | | PDT | | + + + + + | Pulse | 69 | 02/16/2017 6:47 PM | | | | | PDT | | + + + + + | Temperature | 37.2 C (99 F) | 02/16/2017 5:40 PM | | | | | PDT | | + + + + + | Respiratory Rate | 20 | 02/16/2017 5:40 PM | | | | | PDT | | + + + + + | Oxygen Saturation | 100% | 02/16/2017 6:47 PM | | | | | PDT | | + + + + + | Inhaled Oxygen | - | - | | | Concentration | | | | + + + + + | Weight | 130.6 kg (288 lb) | 02/16/2017 5:40 PM | | | | | PDT | | + + + + + | Height | 188 cm (6' 2") | 02/16/2017 5:40 PM | | | | | PDT | | + + + + + | Body Mass Index | 36.98 | 02/16/2017 5:40 PM | | | | | PDT [...] + + documented as of this encounter Discharge Instructions AttachmentsThe following attachments cannot be sent through Care Everywhere.ALLERGIC REACTI ON, DRUG (YORUBA)documented in this encounter Medications at Time of Discharge + + + +---------+ + + | Medication | Sig | Dispensed | Refills | Start | End Date | | | | | | Date | | + + + +---------+ + + | Ergocalciferol | Take 2,000 Units by | | 0 | | | | (VITAMIN D2) 2000 | mouth Daily. | | | | | | units TABS | | | | | | + + + +---------+ + + | lovastatin | Take 40 mg by mouth | | 0 | 08/18/20 | | | (MEVACOR) 20 mg | nightly. | | | 15 | | | tablet | | | | | | + + + +---------+ + + | diazePAM (VALIUM) | Take 1 tablet by | 90 | 1 | 02/10/20 | | | 5 mg tablet | mouth every 6 hours | tablet | | 17 | 7 | | | as needed (muscle | | | | | | | spasm). | | | | | + + + +---------+ + + | lactulose 10 g/15 | Take 15-30 mLs by | 240 mL | 2 | 02/10/20 | | | mL liquid | mouth Daily as | | | 17 | 8 | | | needed for | | | | | | | Constipation. | | | | | + + + +---------+ + + | oxyCODONE 10 MG | Take 1-2 tablets by | 120 | 0 | 02/10/20 | | | TABS | mouth every 4 hours | tablet | | 17 | 7 | | | as needed for Pain | | | | | | | (muscle spasm). | | | | | + + + +---------+ + + | predniSONE | Take 4 tablets by | 12 | 0 | 02/17/20 | | | (DELTASONE) 10 mg | mouth Daily for 3 | tablet | | 17 | 7 | | tablet | days. | | | | | + + + +---------+ + + documented as of this encounter Plan of Treatment Not on filedocumented as of this encounter Visit Diagnoses + + | Diagnosis | + + | Allergic reaction, initial encounter - Primary | + + documented in this encounter Administered Medications + +--------+ +-------+------+------+ | Medication Order | MAR | Action | Dose | Rate | Site | | | Action | Date | | | | + +--------+ +-------+------+------+ | diphenhydrAMINE (BENADRYL) | Given | 02/17/20 | 50 mg | | | | injection 50 mg 50 mg, | | 17 5:55 | | | | | Intravenous, EVERY 6 HOURS PRN, | | PM PDT | | | | | Itching, Starting 02/16/17 at | | | | | | | 1747 | | | | | | + +--------+ +-------+------+------+ +---+---+ | | | +---+---+ + +-------+ +-------+---+---+ | famotidine (PEPCID) injection | Given | 02/17/20 | 40 mg | | | | 40 mg 40 mg, Intravenous, ONCE, | | 17 5:55 | | | | | Vickie 02/16/17 at 1750, For 1 dose, | | PM PDT | | | | | Prior to administration, prepare | | | | | | | a 20 mg dose by diluting 2 mL of | | | | | | | famotidine 10 mg/mL to 10 mL with | | | | | | | normal saline., | | | | | | + +-------+ +-------+---+---+ +---+---+ | | | +---+---+ + +-------+ +-------+---+---+ | methylPREDNISolone sodium | Given | 02/17/20 | 60 mg | | | | succinate (solu-MEDROL) 62.5 | | 17 5:54 | | | | | mg/mL injection 60 mg 60 mg, | | PM PDT | | | | | Intravenous, ONCE, Montgomery 02/16/17 at | | | | | | | 1750, For 1 dose, Mix with 2 mL | | | | | | | provided diluent to make 62.5 | | | | | | | mg/mL., | | | | | | + +-------+ +-------+---+---+ +---+---+ | | | +---+---+ + +---------+ +--------+-------+---+ | sodium chloride 0.9% (NS) bolus | New Bag | 02/17/20 | 1,000 | 2000 | | | 1,000 mL 1,000 mL, Intravenous, | | 17 5:55 | mLs | mL/hr | | | Administer over 30 Minutes, | | PM PDT | | | | | ONCE, Montgomery 02/16/17 at 1750, For 1 | | | | | | | dose | | | | | | + +---------+ +--------+-------+---+ +---+---+ | | | +---+---+ documented in this encounter
--- OUTSIDE RECORDS SUMMARY | ~2019-09-01 | XMS | Encounter Summary ---
Demographics + + + | Address | [address] | | | [place] [address] | + + + | Home Phone | | + + + | Preferred Language | Unknown | + + + | Marital Status | | + + + | Jewish Affiliation | Unknown | + + + | Race | Unknown | + + + | Ethnic Group | Unknown | + + + Author + + + | Author | [facility] | | | and [place] | + + + | Organization | [facility] [...] | | | | | [place] [address] | | + + + + + Care Team Providers + +------+ + | Care American Sign Language Interpreter Name | Role | Phone | + +------+ + | Priyanka Sal PA-C | PCP | | + +------+ + Encounter Details +--------+ + + + + | Date | Type | Department | Care Team | Description | +--------+ + + + + | 09/18/ | Abstract | [facility] [place] | Berhane Chavez, | | | 2015 | | NEUROSURGERY [address] | [place] | | | | | [address] [place] | [address] [place] | | | | | [place] | [place] [address] | | | | | [address] | [phone] | | | | | [phone] | | | +--------+ + + + [...] | | | + +---+---+---+ + + +---------+ + | Alcohol Use [...]
--- OUTSIDE RECORDS SUMMARY | ~2019-09-01 | XMS | Encounter Summary ---
Demographics + + + | Address | [address] | | | [place] [address] | + + + | Home Phone | | + + + | Preferred Language | Unknown | + + + | Marital Status | | + + + | Pentecostal Affiliation | Unknown | + + + | Race | Unknown | + + + | Ethnic Group | Unknown | + + + Author + + + | Author | [facility] | | | and [place] | + + + | Organization | [facility] | | | and [place] | + + + | Address | Unknown | + + + | Phone | Unavailable | + + + Support + + + + + | Name | Relationship | Address | Phone | + + + + + | Alma Gramajo | ECON | [address] | | | | | [place] [address] | | + + + + + Care Team Providers + +------+ + | Care Superintendent System Operation Name | Role | Phone | + +------+ + | Priyanka Sal PA-C | PCP | | + +------+ + Reason for Visit + + + | Reason | Comments | + + + | Imaging Only | | + + + Encounter Details +--------+ + + + + | Date | Type | Department | Care Team | Description | +--------+ + + + + | 04/10/ | Telephone | [facility] [place] | Emil Garcia, | Imaging Only | | 2016 | | NEUROSUR[address]ERY [address] | DO [address] | | | | | [address] | [address] [place], [place] | | | | | [place], [place] | [address] | | | | | [address] | | | | | | [phone] | | | +--------+ + + + [...]
--- OUTSIDE RECORDS SUMMARY | ~2019-09-01 | XMS | Encounter Summary ---
Demographics + + + | Address | [address] | | | [place] [address] | + + + | Home Phone | | + + + | Preferred Language | Unknown | + + + | Marital Status | | + + + | Jain Affiliation | Unknown | + + + | Race | Unknown | + + + | Ethnic Group | Unknown | + + + Author + + + | Author | [facility] | | | and [place] | + + + | Organization | [facility] [...] | | | | | [place] [address] | | + + + + + Care Team Providers + +------+ + | Care Development Mechanic Name | Role | Phone | + +------+ + | Priyanka Sal PA-C | PCP | | + +------+ + Reason for Visit Service/Procedure (Routine) +--------+--------+ + + + + | Status | Reason | Specialty | Diagnoses / | Referred By | Referred To | | | | | Procedures | Contact | Contact | +--------+--------+ + + + + | Closed | | Radiology | Diagnoses | | [facility] | | | | | Lumbar | Mai, | [address] | | | | | radiculopath | Adán Shah MD | [place], | | | | | y | [address] | [place] | | | | | Procedures | [place] | [address] | | | | | [place] INJECT | [place], [place] | Phone: | | | | | ANES/STEROID | [address] | [phone] | | | | | FORAMEN | Phone: | Fax: | | | | | LUMBAR/SACRA | [phone] | [phone] | | | | | L W IMG | Fax: | | | | | | GUIDE ,1 | [phone] | | | | | | LEVEL SD | | | | | | | TRIAMCINOLON | | | | | | | E ACET INJ | | | | | | | NOS, 10 MG | | | | | | | Bilat L3/L4 | | | | | | | TFESI | | | +--------+--------+ + + + + Encounter Details +--------+ + + + + | Date | Type | Department | Care Team | Description | +--------+ + + + + | 06/04/ | Hospital | [facility] | Adán Oneill | Lumbar radiculopathy | | 2016 | Encounter | MED CTR XRAY [address] | T, [address] | | | | | [place] | [address] [place] | | | | | [place], [place] [address] | [address] | | | | | [phone] | | | | | | | [employer] | | +--------+ + + + + [...] this encounter Last Filed Vital Signs + +---------+ + + | Vital Sign | Reading | Time Taken | Comments | + +---------+ + + | Blood Pressure | 145/86 | 06/04/2016 4:58 PM | | | | | PDT | | + +---------+ + + | Pulse | - | - | | + +---------+ + + | Temperature | - | - | | + +---------+ + + | Respiratory Rate | - | - | | + +---------+ + + | Oxygen Saturation | - | - | | + +---------+ + + | Inhaled Oxygen | - | - | | | Concentration | | | | + +---------+ + + | Weight | - | - | | + +---------+ + + | Height | - | - | | + +---------+ + + | Body Mass Index | - | - | | + +---------+ + + documented in this encounter Medications at Time of Discharge + + + +---------+ + + | Medication | Sig | Dispensed | Refills | Start | End Date | | | | | | Date | | + + + +---------+ + + | lovastatin | Take 40 mg by mouth | | 0 | / | | | (MEVACOR) 20 mg | [...] | + +--------+ + + + | FL EPIDURAL STEROID | Routin | 06/04/2016 | Lumbar | Results for this | | INJECTION LUMBAR | e | 5:15 PM | radiculopathy | procedure are in the | | TRANSFORAMINAL | | PDT | | results section. | + +--------+ + + + documented in this encounter Results FL BASHIR Lumbar Transforaminal (06/04/2016 5:15 PM PDT) + + | Specimen | + + | | + + + + + | Narrative | Performed At | + + + | 06/04/2016 Bilateral Transforaminal Epidural Steroid Injections | [facility] | | Diagnosis: Lumbar radiculopathy ICD-10 Code M54.16 | [facility] | | Zaheer Gramajo presents to the fluoroscopy suite for [facility] | | fluoroscopically-guided bilateral L3-L4 transforaminal epidural | - IMAGING | | steroid injections as part of conservative management for chronic | | | pain with lumbar radiculopathy and degenerative disk disease. After | | | informed consent was obtained, the patient lay in the prone position | | | on the fluoroscopy table. The areas were identified under | | | fluoroscopic guidance. The areas were prepped and draped in sterile | | | fashion. A 25-gauge, 1.5-inch needle was inserted into each region | | | and approximately 3 mL of buffered 1% lidocaine was infused. Then, a | | | 22-gauge spinal needle was inserted into the posterior superior | | | transforaminal space bilaterally and advanced into the epidural | | | space under fluoroscopic guidance. Confirmation into the epidural | | | space was obtained with infusion of approximately 1 mL of Omnipaque | | | contrast which showed epidural flow as well as nerve sheath flow. | | | Then, a combination of 2 mL of 1% lidocaine and 2 mL of 6 mg/mL | | | Celestone was infused, divided between the two sides. The patient | | | tolerated the procedure well without complications. Pre- and | | | post-procedure blood pressures were stable. The patient was given | | | verbal as well as written follow-up instructions. Prior to the | | | start of the procedure, the following were performed and/or | | | verified, including correct patient identity, correct site/side marked | | | and visible, agreement on the procedure to be done, correct patient | | | positioning and an accurate procedure consent form. Any safety | | | precautions based on clinical history and/or medication use have | | | been addressed. I personally performed the procedure above. | | | Estimated blood loss: Minimal Complications: None Findings: As | | | expected Anesthesia: Local 1% Lidocaine | | + + + + + + + + | Performing | Address | City[facility] | Phone Number | | Organization | | | | + + + + + | [address] | [address] | [place] | [phone] | | [facility] | | [address] | | | - IMAGING | | | | + + + + + documented in this encounter Visit Diagnoses + + | Diagnosis | + + | Lumbar radiculopathy Thoracic or lumbosacral neuritis or radiculitis, unspecified | + + documented in this encounter Administered Medications + +--------+ +-------+------+ + | Medication Order | MAR | Action | Dose | Rate | Site | | | Action | Date | | | | + +--------+ +-------+------+ + | betamethasone (CELESTONE | Given | 06/04/20 | 12 mg | | Other | | SOLUSPAN) injection 12 mg 12 mg, | | 16 4:09 | | | (Comment | | Intramuscular, ONCE, 06/04/16 | | PM PDT | | | ) | | at 1700, For 1 dose, Shake well. | | | | | | | Not for IV use., | | | | | | + +--------+ +-------+------+ + +---+---+ | | | +---+---+ + +-------+ +-------+---+---+ | iohexol (OMNIPAQUE 300) 300 | Given | 06/04/20 | 4 mLs | | | | mg/mL injection 4 mL 4 mL, | | 16 4:47 | | | | | INTRATHECAL, ONCE, 06/04/16 at | | PM PDT | | | | | 1700, For 1 dose | | | | | | + +-------+ +-------+---+---+ +---+---+ | | | +---+---+ + +-------+ +------+---+---+ | lidocaine (PF) 1% injection 1 | Given | 06/04/20 | 1 mL | | | | mL 1 mL, Other, ONCE, Tue | | 16 4:49 | | | | | 06/04/16 at 1700, For 1 dose | | PM PDT | | | | + +-------+ +------+---+---+ +---+---+ | | | +---+---+ + +-------+ +--------+---+ + | lidocaine buffered 1% injection | Given | 06/04/20 | 10 mLs | | Other | | 10 mL 10 mL, Intradermal, ONCE, | | 16 4:43 | | | (Comment | | 06/04/16 at 1700, For 1 dose | | PM PDT | | | ) | + +-------+ +--------+---+ + +---+---+ | | | +---+---+ documented in this encounter"
--- OUTSIDE RECORDS SUMMARY | ~2019-09-01 | XMS | Encounter Summary ---
Demographics + + + | Address | [address] | | | [place] [address] | + + + | Home Phone | | + + + | Preferred Language | Unknown | + + + | Marital Status | | + + + | Taoist Affiliation | Unknown | + + + | Race | Unknown | + + + | Ethnic Group | Unknown | + + + Author + + + | Author | [facility] | | | and [place] | + + + | Organization | [facility] | | | and [place] | + + + | Address | Unknown | + + + | Phone | Unavailable | + + + Support + + + + + | Name | Relationship | Address | Phone | + + + + + | Alma Gramajo | ECON | [address] | | | | | [place] [address] | | + + + + + Care Team Providers + +------+ + | Care Finished Cloth Examiner Name | Role | Phone | + +------+ + | Priyanka Sal PA-C | PCP | | + +------+ + Encounter Details +--------+ + + + + | Date | Type | Department | Care Team | Description | +--------+ + + + + | 01/29/ | Episode | [facility] [place] | China Guzmán, | | | 2017 | Changes | NEUROSURGERY [address] | Cert [place] | | | | | [address] | | | | | | [place] | | | | | | [address] | | | | | | [phone] | | | +--------+ + + + [...]
--- OUTSIDE RECORDS SUMMARY | ~2019-09-01 | XMS | Clinical Summary ---
Demographics + + + | Address | [address] | | | [place] [address] | + + + | Home Phone | | + + + | Preferred Language | Unknown | + + + | Marital Status | | + + + | Evangelical Affiliation | Unknown | + + + | Race | Unknown | + + + | Ethnic Group | Unknown | + + + Author + + + | Author | [facility] | | | and [place] | + + + | Organization | [facility] | | | and [place] | + + + | Address | Unknown | + + + | Phone | Unavailable | + + + Support + + + + + | Name | Relationship | Address | Phone | + + + + + | Alma Gramajo | ECON | [address] | | | | | [place] [address] | | + + + + + Care Team Providers + +------+ + | Care Field Nurse Name | Role | Phone | + +------+ + | Priyanka Sal PA-C | PCP | | + +------+ + Allergies + + + + + + | Active Allergy | Reactions | Severity | Noted | Comments | | | | | Date | | + + + + + + | Diazepam | Anaphylaxis, Hives | High | 02/17/20 | | | | | | 17 | | + + + + + + | Fenofibrate | Other (See Comments) | | 03/31/20 | Reaction not | | | | | 18 | specified in outside | | | | | | medical records | + + + + + + Medications + + + +---------+------+------+-------+ | Medication | Sig | Dispensed | Refills | Star | End | Statu | | | | | | t | Date | s | | | | | | Date | | | + + + +---------+------+------+-------+ | lovastatin | Take 40 mg by mouth | | 0 | 08/01 | | Activ | | (MEVACOR) 20 mg | nightly. | | | 04/20 | | e | | tablet | | | | 15 | | | + + + +---------+------+------+-------+ | Ergocalciferol | Take 2,000 Units by | | 0 | | | Activ | | (VITAMIN D2) 2000 | mouth Daily. | | | | | e | | units TABS | | | | | | | + + + +---------+------+------+-------+ | ibuprofen | Take 600 mg by mouth | | 0 | | | Activ | | (ADVIL,MOTRIN) 600 | every 6 hours as | | | | | e | | MG tablet | needed for Pain. | | | | | | + + + +---------+------+------+-------+ | oxyCODONE | Take 1-2 tablets by | 30 | 0 | 12/1 | | Activ | | (ROXICODONE) 5 mg | mouth every 6 hours | tablet | | 2/20 | | e | | tablet | as needed for Pain. | | | 18 | | | + + + +---------+------+------+-------+ | acetaminophen | Take 1-2 tablets by | 60 | 0 | 12/1 | | Activ | | (TYLENOL) 500 mg | mouth every 6 hours | tablet | | 2/20 | | e | | tablet | as needed for Pain. | | | 18 | | | + + + +---------+------+------+-------+ | ibuprofen | Take 1 tablet by | 60 | 1 | 08/01 | | Activ | | (ADVIL,MOTRIN) 600 | mouth every 6 hours | tablet | | 2/20 | | e | | MG tablet | as needed for Pain. | | | 18 | | | + + + +---------+------+------+-------+ Active Problems + + + | Problem | Noted Date | + + + | H/O Kidney stones | 08/12/2018 | + + + | Epiploic appendagitis | 07/27/2018 | + + + | Hyperlipidemia | 07/27/2018 | + + + | Neurogenic bowel | 07/27/2018 | + + + | Lumbar canal stenosis | 04/21/2018 | + + + | Lumbar radiculopathy | 04/21/2018 | + + + | History of lumbar fusion | 04/21/2018 | + + + | Rectal abnormality - rectal wall thickening on CT scan | 03/01/2018 | + + + | Foot infection | 01/21/2015 | + + + | DVT of leg (deep venous thrombosis) | 06/30/2013 | + + + | Monitoring for anticoagulant use | 06/30/2013 | + + + | Cauda equina syndrome | | + + + | H/O spinal cord compression | | + + + | Hyperlipoproteinemia | | + + + | Obesity, Class II, BMI 35-39.9 | | + + + | Spinal stenosis, lumbar | | + + + | Deep venous thrombosis | | + + + + + | Overview: Lower extremities | + + Family History + + +------+ + | Medical History | Relation | Name | Comments | + + +------+ + | GERD | Mother | | | + + +------+ + | Heart disease | Mother | | ASHD | + + +------+ + | Other (see comment) | Paternal | | Heart problems | | | Grandfath | | | | | er | | | + + +------+ + | Cancer | Paternal | | | | | Grandmoth | | | | | er | | | + + +------+ + | Prostate cancer | Neg Hx | | | + + +------+ + + +------+--------+ + | Relation | Name | Status | Comments | + +------+--------+ + | Father | | Alive | | + +------+--------+ + | Mother | | Alive | | + +------+--------+ + | Paternal Grandfather | | | | + +------+--------+ + | Paternal Grandmother | | | | + +------+--------+ + Social History + +-------+ +--------+------+ | Tobacco Use | Types | Packs/Day | Years | Date | | | | | Used | | + +-------+ +--------+------+ | Never Smoker | | | | | + +-------+ +--------+------+ + +------+---+---+ | Smokeless Tobacco: | Chew | | | | Current User | | | | + +------+---+---+ + + | Tobacco Cessation: Ready to Quit: No | | Comments: 2 cans of chew/week. | [...] recent travel history available. | + + Last Filed Vital Signs + + + + + | Vital Sign | Reading | Time Taken | Comments | + + + + + | Blood Pressure | 115/74 | 08/12/2018 4:00 PM | | | | | PST | | + + + + + | Pulse | 96 | 09/24/2018 3:26 PM | | | | | PST | | + + + + + | Temperature | 36 C (96.8 F) | 09/24/2018 3:26 PM | | | | | PST | | + + + + + | Respiratory Rate | 18 | 09/24/2018 3:26 PM | | | | | PST | | + + + + + | Oxygen Saturation | 98% | 09/24/2018 3:26 PM | | | | | PST | | + + + + + | Inhaled Oxygen | - | - | | | Concentration | | | | + + + + + | Weight | 135.6 kg (299 lb) | 09/03/2018 3:04 PM | | | | | PST | | + + + + + | Height | 188 cm (6' 2") | 09/24/2018 3:26 PM | | | | | PST | | + + + + + | Body Mass Index | 38.39 | 09/03/2018 3:04 PM | | | | | PST | | + + + + + Plan of Treatment + + + + + | Health Maintenance | Due Date | Last Done | Comments | + + + + + | Vaccine: | | | | | Dtap/Tdap/Td (1 - | 6 | | | | Tdap) | | | | + + + + + | Vaccine: Influenza | | | | | (#1) | 9 | | | + + + + + Implants + +--------+--------+ +--------+--------+--------+ | Implanted | Type | Area | Manufacture | Device | Shelf | Model | | | | | r | | Expira | / | | | | | | Identi | tion | Serial | | | | | | fier | Date | / Lot | + +--------+--------+ +--------+--------+--------+ | Imp Spn Palomo Sext Ti | Generi | N/A: | [employer] - | | | [id number] | | [id number] - | c | Spine | MEDT | | | [id number] / | | [id number]: Qty: 2 on | | Lumbar | | | | / | | 02/05/2017 by Emil Garcia | | | | | | | | DO Love at [facility] | | | | | | | | [facility] | | | | | | | + +--------+--------+ +--------+--------+--------+ | Graft Infuse Bone Kit Xxs - | Graft | N/A: | SOF[employer]OR | | 01/29/ | [id number] | | [id number]: Qty: 1 on | | Spine | DANEK - DIV | | 2018 | 0 / | | 02/05/2017 by Emil Garcia | | Lumbar | [employer] | | | [id number] | | DO Love at [facility] | | | - [facility] | | | [id number] | | [facility] | | | | | | | + +--------+--------+ +--------+--------+--------+ | Putty Jose Roberto 5c Dbm - | Graft | N/A: | [employer] - | | 10/15/ | [id number] | | [id number]: Qty: 1 | | Spine | MEDT | | 2020 | [id number] | | on 02/05/2017 by Radha | | Lumbar | | | | [id number] | | Emil Aleman DO at [facility] | | | | | | / | | [facility] | | | | | | | + +--------+--------+ +--------+--------+--------+ | Putty Bone Dbm Grftn 2.5cc - | Graft | N/A: | [employer] - | | 10/24/ | [id number] | | [id number]: Qty: 1 | | Spine | MEDT | | 2020 | | | on 02/05/2017 by Radha, | | Lumbar | | | | /[id number] | | Emil Aleman DO at [facility] | | | | | | 1-102 | | [facility] | | | | | | / | + +--------+--------+ +--------+--------+--------+ | Mesh Parietex Progrip 12x8c | Mesh | Right: | COVIDIEN | | 03/31/ | [id number] | | Rt - [id number]: | | | -BENNETT 867 - | | 2 | 8GR / | | Qty: 1 on 08/12/2018 by | | Inguin | COVI | | | /[id number] | | Cris Gutierrez MD at | | al | | | | 71X | | [facility] | | | | | | | | [facility] | | | | | | | + +--------+--------+ +--------+--------+--------+ | Screw Slra Sextant 7.5x65 - | Screw | N/A: | [employer] - | | | [id number] | | [id number]: Qty: 3 on | | Spine | MEDT | | | [id number] | | 02/05/2017 by Emil Garcia | | Lumbar | | | | / / | | DO Love at [facility] | | | | | | | | [facility] | | | | | | | + +--------+--------+ +--------+--------+--------+ | Screw Solera Sextant 7.5x60 - | Screw | N/A: | [employer] - | | | [id number] | | [id number]: Qty: 1 | | Spine | MEDT | | | [id number] | | on 02/05/2017 by Radha, | | Lumbar | | | | / / | | Emil Aleman DO at [facility] | | | | | | | | [facility] | | | | | | | + +--------+--------+ +--------+--------+--------+ | Set Scrw Ns G5 Brk Off Ti | Screw | N/A: | SOFAMOR | | | [id number] | | 4.75 - [id number]: | | Spine | DANEK - DIV | | | 0 / / | | Qty: 4 on 02/05/2017 by | | Lumbar | [employer] | | | | | Emil Garcia DO at [facility] | | | - [facility] | | | | | [facility] | | | | | | | | CENTER | | | | | | | + +--------+--------+ +--------+--------+--------+ | Stent Uret W/Pstnr Frm 6 | Stent | Left: | SYLVIA WARD | | | [id number] | | 22-32 - [id number]: | | Ureter | INCORPORATE | | | / | | Qty: 1 on 02/12/2018 by | | | D | | | /[id number] | | Satinder Elizondo MD at | | | | | | 37 | | [facility] | | | | | | | | [facility] | | | | | | | + +--------+--------+ +--------+--------+--------+ | SpacerImplanted: Qty: 1 on | | N/A: | [employer] | | 07/06/ | [id number] | | 02/05/2017 by Emil Garcia | | Spine | [employer] | | 2020 | 95 / | | DO Love at [facility] | | Lumbar | [employer] | | | /[id number] | | [facility] | | | | | | | + +--------+--------+ +--------+--------+--------+ Results Not on filefrom Last 3 Months Insurance + +--------+ +--------+-------+---------+--------+ | Payer | Benefi | Subscriber | Effect | Phone | Address | Type | | | t Plan | ID | myrtle | | | | | | / | | Dates | | | | | | Group | | | | | | + +--------+ +--------+-------+---------+--------+ | [employer] | [place] | [id number] | 08/19/ | | | Indemn | | | DEPT | | 2014-P | | | ity | | | LABOR | | resent | | | | | | FECA | | | | | | | | WC | | | | | | + +--------+ +--------+-------+---------+--------+ | BCBS | BCBS | [id number] | 07/18/ | | | PPO | | | FEDERA | | 2000-P | | | | | | L FEP | | resent | | | | + +--------+ +--------+-------+---------+--------+ + +--------+ +--------+ + + | Guarantor Name | Accoun | Relation to | Date | Phone | Billing Address | | | t Type | Patient | of | | | | | | | | | | + +--------+ +--------+ + + | Zaheer Graamjo | Person | Self | [birth year] | [address] | | [place] | al/Fam | | 1974 | [phone] | [place] [address] | | | quinten | | | 2 (Home) | | | | | | | [phone] | | | | | | | 8 (Work) | | + +--------+ +--------+ + + | Zaheer Gramajo | Worker | Self | [birth year] | [address] | | [place] | viviana Comp | | 1974 | [phone] | [place] [address] | | | | | | 2 (Home) | | | | | | | [phone] | | | | | | | 8 (Work) | | + +--------+ +--------+ + + Advance Directives + + + + + | Type | Date Recorded | Patient | Explanation | | | | Performance Makeup Artist | | + + + + + | Power of | 02/11/2016 2:50 | | | | Motorcycle Police | PM | | | + + + + + | Advance | 01/15/2017 7:49 | | | | Directive | PM | | | + + + + + + + + + + | Code Status | Date | Date | Comments | | | Activated | Inactivated | | + + + + + | Full Code | 08/12/2018 | 08/12/2018 | | | | 2:52 PM | 10:07 PM | | + + + + + + + + +---+ | | | | | + + + +---+ | Full Code | 02/12/2018 | 02/12/2018 | | | | 9:23 AM | 4:46 PM | | + + + +---+ + + + +---+ | | | | | + + + +---+ | Full Code | 02/05/2017 | 02/09/2017 | | | | 3:30 PM | 4:34 PM | | + + + +---+
--- OUTSIDE RECORDS SUMMARY | ~2019-09-01 | XMS | Encounter Summary ---
Demographics + + + | Address | [address] | | | [place] [address] | + + + | Home Phone | | + + + | Preferred Language | Unknown | + + + | Marital Status | | + + + | Religion Affiliation | Unknown | + + + | Race | Unknown | + + + | Ethnic Group | Unknown | + + + Author + + + | Author | [facility] | | | and [place] | + + + | Organization | [facility] | | | and [place] | + + + | Address | Unknown | + + + | Phone | Unavailable | + + + Support + + + + + | Name | Relationship | Address | Phone | + + + + + | Alma Gramajo | ECON | [address] | | | | | [place] [address] | | + + + + + Care Team Providers + +------+ + | Care Sand Mill Operator Core Sand Name | Role | Phone | + +------+ + | Priyanka Sal PA-C | PCP | | + +------+ + Reason for Visit + + + | Reason | Comments | + + + | Follow-up | imaging of inguinal hernia of right side | + + + Evaluate & Treat (Routine) +--------+ + + + + + | Status | Reason | Specialty | Diagnoses / | Referred By | Referred To | | | | | Procedures | Contact | Contact | +--------+ + + + + + | Closed | Specialty | Surgery / | Diagnoses | Toro, | Matt, | | | Services | General | Inguinal | Michael Shah MD | Cris Begum, | | | Required | Surgery | hernia of | [address] | | | | right side | [address] | [address] | | | | | without | [place], | [place], | | | | | obstruction | [place] [address] | [place] [address] | | | | | or gangrene | Phone: | Phone: | | | | | | [phone] | [phone] | | | | | | Fax: | Fax: | | | | | | [phone] | [phone] | +--------+ + + + + + Encounter Details +--------+---------+ + + + | Date | Type | Department | Care Team | Description | +--------+---------+ + + + | 07/30/ | Office | [facility] | Cris Gutierrez | Inguinal hernia of | | 2017 | Visit | SURGERY [address] | [address] | right side without | | | | [facility], [place] | [address] [place] | obstruction or | | | | [phone] | [place] [address] | gangrene (Primary | | | | [phone] | [phone] | Dx) | | | | | | | +--------+---------+ + + + [...] + + + | Blood Pressure | - | - | | + + + + + | Pulse | 58 | 07/30/2018 3:01 PM | | | | | PST | | + + + + + | Temperature | 35.9 C (96.7 F) | 07/30/2018 3:01 PM | | | | | PST | | + + + + + | Respiratory Rate | - | - | | + + + + + | Oxygen Saturation | 97% | 07/30/2018 3:01 PM | | | | | PST | | + + + + + | Inhaled Oxygen | - | - | | | Concentration | | | | + + + + + | Weight | 133.4 kg (294 lb) | 07/30/2018 3:01 PM | | | | | PST | | + + + + + | Height | 188 cm (6' 2") | 07/30/2018 3:01 PM | | | | | PST | | + + + + + | Body Mass Index | 37.75 | 07/30/2018 3:01 PM | | | | | PST [...] of this encounter Patient Instructions Patient Instructions Afshan Dahl RN - 07/30/2018 3:00 PM PSTPlease use the antibacteri al wipes the night before your surgery to help prevent post-op infections. Follow instructi ons listed in brochure. DO NOT EAT OR DRINK ANYTHING AFTER MIDNIGHT before your surgery. This means no coffee, ishan er, juice or toast on the morning of your surgery. The only exception is essential medicine s with a small sip of water (or just enough to get the pills down safely). Wear loose fitting, comfortable clothing. We advise you to leave jewelry and other valuable s at home. On 08/12/18 check in at Same Day Surgery (corner of [address]) at 11:00PM. Your surgery is called RIGHT inguinal hernia repair with mesh. It will start about 1:00pm and will finish about 3:00pm. You will be ready to go home later that day. Anesthesia type recommended: General General IV Sedation with local anesthesia (MAC) IV Sedation Other MAKE ARRANGEMENTS FOR A RESPONSIBLE ADULT TO DRIVE YOU HOME. Should you need a signed document excusing you from work or school, we advise you request t his during your visit to ensure timely delivery. If you have any questions, please call at . Your nurse's name is Afshan. Your surgeon's name is Dr. Gutierrez. I look forward to your having a safe, successful and comfortable surgery. Sign up for [employer] if you want easy access to your medical information online. You can: Review your medications, immunizations, allergies and medical history. View details of your past and upcoming appointments. Sign up for [employer] if you want easy access to your medical information online. Only you, your doctor and your health care team are permitted to view the information sent through [employer]. Through [employer] you can: ? Review your medications, immunizations, allergies and medical history. ? View details of your past and upcoming appointments. ? Receive test results online no waiting for a phone call or letter ? Review health education topics and discharge instructions provided by your physician. ? Send secure emails to your healthcare team. ? Request renewals of your medications online ? Link your family s accounts to yours for convenient access to appointments, immunizatio n records, growth charts and more. Below are the different ways you can sign up for [employer]: ? The first way is to get online at: [email or web address] and sign up directly throug h the website prior to your appointment with us. You can call [phone] ([phone]) if you have any questions or need assistance. ? The second way is through the [employer] tana which can be accessed with any smart phone. Ju go to your tana store and look up Neura. ? The third way is to do it while you wait in the room for the doctor at your appointment. The nurse is available if you have any questions or need assistance. You will need the following information to sign up: Email address: User name: Password: Password must be at least 8 characters long, less than 20 characters, and it must have at l east 1 upper case letter and 1 lower case letter as well as at least 1 number. documented in this encounter Progress Notes Cris Gutierrez MD - 07/30/2018 3:00 PM PST Progress Note Referring Provider: Michael Engel MD HISTORY OF PRESENT ILLNESS Patient Identification: Zaheer Gramajo 1975 Is a 43 y.o. male, a patie nt of Priyanka Sal PA-C. Patient is here alone. Physician notes: David is here for preoperative planning for right inguinal hernia. He was evaluated by me 2 days ago and had an ultrasound which shows a small right inguinal hernia. The hernia was hurting him again last night and he normally does not have back pain but unfortunately the right groin pain then radiated through to the back. He would like it repaired. Imaging/ Pathology: US Groin Right 07/29/2018 TECHNIQUE: Right groin B-mode ultrasound with color and duplex doppler CLINICAL INFORMATION: R/O inguinal femoral hernia. COMPARISON: CT dated 03/01/2018. FINDINGS: Small soft tissue bulge noted at the right inguinal region during Valsalva. The bulge reduces after Valsalva. No soft tissue mass or cystic lesion. No sonographic findings to suggest bowel involvement. No inguinal lymphadenopathy appreciated. IMPRESSION - Small right inguinal hernia. 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 MAIN OR LUMBAR SPINE SURGERY [address] URETEROSCOPY Left 02/12/2018 Procedure: Left Ureteroscopy, Laser Lithotripsy and Stent; Surgeon: Satinder Elizondo MD; Location: [facility] MAIN OR Allergies Allergen Reactions Diazepam Anaphylaxis and Hives Fenofibrate Other (See Comments) Reaction not specified in outside medical records Medications: Outpatient Encounter Prescriptions as of 07/30/2018 Medication Sig Dispense Refill Ergocalciferol (VITAMIN D2) 2000 units TABS Take 2,000 Units by mouth Daily. ibuprofen (ADVIL,MOTRIN) 600 MG tablet Take 600 mg by mouth every 6 hours as needed for Pain. lovastatin (MEVACOR) 20 mg tablet Take 40 mg by mouth nightly. No facility-administered encounter medications on file as of 07/30/2018. Family History: His family history includes Cancer in his paternal grandmother; GERD in his mother; Heart d isease in his mother; Other (see comment) in his paternal grandfather. Social History: He reports that he has never smoked. His smokeless tobacco use includes Chew. He reports th at he does not drink alcohol or use drugs. PHYSICAL EXAM Pulse 58 | Temp 35.9 C (96.7 F) (Temporal) | Ht 1.88 m (6' 2") | Wt 133.4 kg (294 lb ) | SpO2 97% | BMI 37.75 kg/m General Appearance: Alert, cooperative, no distress, appears stated age Skin: Warm and dry Head: Normocephalic, without obvious abnormality, atraumatic Eyes: conjunctiva/corneas clear, EOM's intact Ears: Adequate hearing bilateral Nose: Nares normal, septum midline Neck: Symmetric, no adenopathy Lymph nodes Cervical and supraclavicular nodes normal Lungs: Breath sounds are clear to auscultation bilaterally, no wheezes, crackles Chest Wall: No tenderness or deformity, no pacemaker Heart: Regular rate and rhythm, S1, S2 normal, no murmur Abdomen: Soft, non-tender Extremities: Extremities normal, atraumatic, no cyanosis, clubbing, or edema Radial pulses 2+ bilateral Neurologic: Alert and oriented x3, Gait normal Assessment/Plan: Zaheer was seen today for follow-up. Diagnoses and all orders for this visit: Inguinal hernia of right side without obstruction or gangrene 43-year-old male with asymptomatic right inguinal hernia. I expect him the risks benefits and alternatives to open hernia repair with mesh and his questions were answered. The risks we discussed included were not limited to bleeding, infection, scar, pain, recurrence, marketing operations manager vilma pain, injury to cord structures and loss of testicle, bowel injury, unforeseen complicat ions and . He understands risks and wishes to proceed. He signed a consent for the pr ocedure. He would like surgery on August 12Friday He will follow-up 2 weeks after surgery Cris Gutierrez MD CC PCP: Priyanka Sal PA-C Portions of this chart may have been created with [employer] voice recognition software. Occasi onal wrong-word or sound-alike substitutions may have occurred due to the inherent ann itations of voice recognition software. Please read the chart carefully and recognize, using context, where these substitutions have occurred. documented in this encounter Plan of Treatment Not on filedocumented as of this encounter Visit Diagnoses + + | Diagnosis | + + | Inguinal hernia of right side without obstruction or gangrene - Primary | + + documented in this encounter
--- OUTSIDE RECORDS SUMMARY | ~2019-09-01 | XMS | Encounter Summary ---
Demographics + + + | Address | [address] | | | [place] [address] | + + + | Home Phone | | + + + | Preferred Language | Unknown | + + + | Marital Status | | + + + | Druze Affiliation | Unknown | + + + | Race | Unknown | + + + | Ethnic Group | Unknown | + + + Author + + + | Author | [facility] | | | and [place] | + + + | Organization | [facility] | | | and [place] | + + + | Address | Unknown | + + + | Phone | Unavailable | + + + Support + + + + + | Name | Relationship | Address | Phone | + + + + + | Alma Gramajo | ECON | [address] | | | | | [place] [address] | | + + + + + Care Team Providers + +------+ + | Care Student Driving Instructor Name | Role | Phone | + +------+ + | Priyanka Sal PA-C | PCP | | + +------+ + Encounter Details +--------+ + + + + | Date | Type | Department | Care Team | Description | +--------+ + + + + | 01/15/ | Preadmit | [facility] | Emil Garcia, | Pre-operative | | 2017 | Visit | [facility] | DO [address] | clearance (Primary | | | | CLINIC [address] | [address] [place], [place] | Dx); Deep vein | | | | [place], [place] | [address] | thrombosis (DVT) of | | | | [id number] | | lower extremity, | | | | | | unspecified | | | | | | chronicity, | | | | | | unspecified | | | | | | laterality, | | | | | | unspecified vein | | | | | | (HCC); Cauda equina | | | | | | syndrome (HCC); H/O | | | | | | spinal cord | | | | | | compression; | | | | | | Hyperlipoproteinemia | | | | | | ; Obesity, | | | | | | unspecified obesity | | | | | | severity, | | | | | | unspecified obesity | | | | | | type; Spinal | | | | | | stenosis, lumbar | +--------+ + + + + Social [...] | + +--------+ + + + | XR CHEST 2 VIEWS | Routin | 01/15/2017 | Deep vein | Results for this | | | e | 10:36 AM | thrombosis (DVT) of | procedure are in the | | | | PDT | lower extremity, | results section. | | | | | unspecified | | | | | | chronicity, | | | | | | unspecified | | | | | | laterality, | | | | | | unspecified vein | | | | | | (HCC) Cauda equina | | | | | | syndrome (HCC) H/O | | | | | | spinal cord | | | | | | compression | | | | | | Hyperlipoproteinemia | | | | | | Obesity, | | | | | | unspecified obesity | | | | | | severity, | | | | | | unspecified obesity | | | | | | type Spinal | | | | | | stenosis, lumbar | | + +--------+ + + + | CULTURE, MRSA | Routin | 01/15/2017 | Pre-operative | Results for this | | | e | 10:18 AM | clearance | procedure are in the | | | | PDT | | results section. | + +--------+ + + + | CBC WITH | Routin | 01/15/2017 | Deep vein | Results for this | | DIFFERENTIAL | e | 10:18 AM | thrombosis (DVT) of | procedure are in the | | | | PDT | lower extremity, | results section. | | | | | unspecified | | | | | | chronicity, | | | | | | unspecified | | | | | | laterality, | | | | | | unspecified vein | | | | | | (HCC) Cauda equina | | | | | | syndrome (HCC) H/O | | | | | | spinal cord | | | | | | compression | | | | | | Hyperlipoproteinemia | | | | | | Obesity, | | | | | | unspecified obesity | | | | | | severity, | | | | | | unspecified obesity | | | | | | type Spinal | | | | | | stenosis, lumbar | | + +--------+ + + + | ECG 12 LEAD | Routin | 01/15/2017 | Deep vein | Results for this | | | e | 10:12 AM | thrombosis (DVT) of | procedure are in the | | | | PDT | lower extremity, | results section. | | | | | unspecified | | | | | | chronicity, | | | | | | unspecified | | | | | | laterality, | | | | | | unspecified vein | | | | | | (HCC) Cauda equina | | | | | | syndrome (HCC) H/O | | | | | | spinal cord | | | | | | compression | | | | | | Hyperlipoproteinemia | | | | | | Obesity, | | | | | | unspecified obesity | | | | | | severity, | | | | | | unspecified obesity | | | | | | type Spinal | | | | | | stenosis, lumbar | | + +--------+ + + + documented in this encounter Results XR Chest 2 VW (01/15/2017 10:36 AM PDT) + + | Specimen | + + | | + + + + + | Narrative | Performed At | + + + | CLINICAL INFORMATION: Pre operative clearance. COMPARISON: | [facility] | | 02/11/2016. FINDINGS: Frontal and lateral views of the chest. | [facility] | | Lungs: No focal airspace disease, pleural effusion, or pneumothorax. | [facility]ENTER | | Incidental note of an azygos lobe. Heart: Cardiac silhouette is | - IMAGING | | of normal size. Mediastinum: Central pulmonary vasculature has a | | | normal appearance. Bones: Posterior lower thoracic spine fusion | | | changes with interbody graft markers. No findings to suggest hardware | | | complication. IMPRESSION - No acute disease. Dictated and | | | Signed by: Javier Hernández MD Electronically signed: 01/15/2017 | | | 12:46 PM | | + + + + + | Procedure Note | + + | Raoul, Rad Results In - 01/15/2017 12:49 PM PDT CLINICAL INFORMATION: Pre operative | | clearance.COMPARISON: 02/11/2016.FINDINGS: Frontal and lateral views of the chest. Lungs: | | No focal airspace disease, pleural effusion, or pneumothorax. Incidentalnote of an | | azygos lobe.Heart: Cardiac silhouette is of normal size.Mediastinum: Central pulmonary | | vasculature has a normal appearance.Bones: Posterior lower thoracic spine fusion changes | | with interbody graftmarkers. No findings to suggest hardware complication.IMPRESSION - | | No acute disease.Dictated and Signed by: Javier Hernández MD Electronically signed: | | 01/15/2017 12:46 PM | |note of an azygos lobe. | | | |Heart: Cardiac silhouette is of normal size. | | | |Mediastinum: Central pulmonary vasculature has a normal appearance. | | | |Bones: Posterior lower thoracic spine fusion changes with interbody graft | |markers. No findings to suggest hardware complication. | | | | | |IMPRESSION - No acute disease. | | | |Dictated and Signed by: Javier Hernández MD | | Electronically signed: 01/15/2017 12:46 PM | + + + + + + + | Performing | Address | City/State/Zipcode | Phone Number | | Organization | | | | + + + + + | [facility] | [address] | [place] | [phone] | | [facility] | | [address] | | | - IMAGING | | | | + + + + + CBC with Differential (01/15/2017 10:18 AM PDT) + +-------+ + + + | Component | Value | Ref Range | Performed | Pathologist | | | | | At | Signature | + +-------+ + + + | WBC | 9.6 | 4.0 - 11.0 K/uL | [facility] | | | | | | [facility] | | | | | | [facility] | | | | | | [facility] - | | | | | | LABORATORY | | + +-------+ + + + | RBC | 4.84 | 4.30 - 5.70 | [facility] | | | | | M/uL | [facility] | | | | | | MEDICAL | | | | | | CENTER - | | | | | | LABORATORY | | + +-------+ + + + | Hemoglobin | 14.9 | 13.5 - 18.0 | [facility] | | | | | g/dL | [facility] | | | | | | MEDICAL | | | | | | CENTER - | | | | | | LABORATORY | | + +-------+ + + + | Hematocrit | 43.6 | 40.0 - 51.0 % | [facility] | | | | | | [facility] | | | | | | MEDICAL | | | | | | CENTER - | | | | | | LABORATORY | | + +-------+ + + + | MCV | 90.1 | 83.0 - 101.0 fL | [facility] | | | | | | [facility] | | | | | | [facility]ICAL | | | | | | CENTER - | | | | | | LABORATORY | | + +-------+ + + + | MCH | 30.8 | 28.0 - 35.0 pg | [facility] | | | | | | [facility] | | | | | | [facility]ICAL | | | | | | CENTER - | | | | | | LABORATORY | | + +-------+ + + + | MCHC | 34.2 | 32.0 - 36.0 | [facility] | | | | | g/dL | [facility] | | | | | | MEDICAL | | | | | | CENTER - | | | | | | LABORATORY | | + +-------+ + + + | RDW-CV | 13.8 | <15.0 % | [facility] | | | | | | [facility] | | | | | | MEDICAL | | | | | | CENTER - | | | | | | LABORATORY | | + +-------+ + + + | Platelet | 159 | 140 - 440 K/uL | [facility] | | | Count | | | [facility] | | | | | | MEDICAL | | | | | | CENTER - | | | | | | LABORATORY | | + +-------+ + + + | MPV | 9.4 | fL | [facility] | | | | | | [facility] | | | | | | [facility] | | | | | | CENTER - | | | | | | LABORATORY | | + +-------+ + + + | % | 64.1 | 45.0 - 82.0 % | [facility] | | | Neutrophils | | | [facility] | | | | | | MEDICAL | | | | | | CENTER - | | | | | | LABORATORY | | + +-------+ + + + | % | 23.8 | 20.0 - 45.0 % | [facility] | | | Lymphocytes | | | [facility] | | | | | | MEDICAL | | | | | | CENTER - | | | | | | LABORATORY | | + +-------+ + + + | % Monocytes | 8.7 | 4.0 - 12.0 % | [facility] | | | | | | [facility] | | | | | | [facility] | | | | | | CENTER - | | | | | | LABORATORY | | + +-------+ + + + | % | 2.8 | 0.0 - 5.0 % | [facility] | | | Eosinophils | | | [facility] | | | | | | MEDICAL | | | | | | CENTER - | | | | | | LABORATORY | | + +-------+ + + + | % Basophils | 0.6 | 0.0 - 1.0 % | [facility] | | | | | | [facility] | | | | | | MEDICAL | | | | | | CENTER - | | | | | | LABORATORY | | + +-------+ + + + | Absolute | 6.10 | 1.80 - 8.50 | [facility] | | | Neutrophils | | K/uL | [facility] | | | | | | MEDICAL | | | | | | CENTER - | | | | | | LABORATORY | | + +-------+ + + + | Absolute | 2.30 | 0.60 - 3.20 | [facility] | | | Lymphocytes | | K/uL | [facility] | | | | | | MEDICAL | | | | | | CENTER - | | | | | | LABORATORY | | + +-------+ + + + | Absolute | 0.80 | 0.00 - 1.00 | [facility] | | | Monocytes | | K/uL | [facility] | | | | | | MEDICAL | | | | | | CENTER - | | | | | | LABORATORY | | + +-------+ + + + | Absolute | 0.30 | 0.00 - 0.40 | [facility] | | | Eosinophils | | K/uL | [facility] | | | | | | MEDICAL | | | | | | CENTER - | | | | | | LABORATORY | | + +-------+ + + + | Absolute | 0.10 | 0.00 - 0.10 | [facility] | | | Basophils | | K/uL | [facility] | | | | | | MEDICAL | | | | | | CENTER - | | | | | | LABORATORY | | + +-------+ + + + + + | Specimen | + + | Blood | + + + + + + + | Performing | Address | City/State/Zipcode | Phone Number | | Organization | | | | + + + + + | [facility] | [address] | [place] | [phone] | | [facility] | | [address] | | | - LABORATORY | | | | + + + + + Culture, MRSA (01/15/2017 10:18 AM PDT) + + + + + + | Component | Value | Ref Range | Performed | Pathologist | | | | | At | Signature | + + + + + + | Culture | Negative for MRSA by | | [facility] | | | | chromogenic agar method | | [facility] | | | | | | MEDICAL | | | | | | CENTER - | | | | | | LABORATORY | | + + + + + + + + | Specimen | + + | Respiratory - Both | | anterior nares (body | | structure) | + + + + + + + | Performing | Address | City/State/Zipcode | Phone Number | | Organization | | | | + + + + + | [facility] | [address] | [place] | [phone] | | [facility] | | [address] | | | - LABORATORY | | | | + + + + + ECG 12 lead (01/15/2017 10:12 AM PDT) + + + + + + | Component | Value | Ref Range | Performed | Pathologist | | | | | At | Signature | + + + + + + | VENTRICULAR | 57 | BPM | [facility] | | | RATE EKG | | | | | + + + + + + | ATRIAL RATE | 57 | BPM | [facility] | | + + + + + + | P-R | 142 | ms | [facility] | | | INTERVAL | | | | | + + + + + + | QRS | 96 | ms | [facility] | | | DURATION | | | | | + + + + + + | Q-T | 410 | ms | [facility] | | | INTERVAL | | | | | + + + + + + | Q-T | 399 | ms | [facility] | | | INTERVAL | | | | | | (CORRECTED) | | | | | + + + + + + | P WAVE AXIS | 34 | degrees | [facility] | | + + + + + + | QRS AXIS | 21 | degrees | [facility] | | + + + + + + | T AXIS | 24 | degrees | [facility] | | + + + + + + | INTERPRETAT | Sinus bradycardia with | | [facility] | | | ION TEXT | sinus | | | | | | arrhythmiaOtherwise | | | | | | normal ECGNo previous | | | | | | ECGs availableConfirmed | | | | | | by AIRAM MCGOWAN MD | | | | | | ([id number]) on 01/16/2017 | | | | | | 7:39:17 AM | | | | + + + + + + + + | Specimen | + + | | + + + + + | Narrative | Performed At | + + + | | | + + + + +---------+ + + | Performing | Address | City/State/Zipcode | Phone Number | | Organization | | | | + +---------+ + + | [facility] | | | | + +---------+ + + documented in this encounter Visit Diagnoses + + | Diagnosis | + + | Pre-operative clearance - Primary Preoperative examination, unspecified | + + | Deep vein thrombosis (DVT) of lower extremity, unspecified chronicity, unspecified | | laterality, unspecified vein (HCC) | + + | Cauda equina syndrome (HCC) Cauda equina syndrome without mention of neurogenic | | bladder | + + | H/O spinal cord compression Personal history of other disorders of nervous system and | | sense organs | + + | Hyperlipoproteinemia Other and unspecified hyperlipidemia | + + | Obesity, unspecified obesity severity, unspecified obesity type | + + | Spinal stenosis, lumbar Spinal stenosis, lumbar region, without neurogenic | | claudication | + + documented in this encounter"
--- OUTSIDE RECORDS SUMMARY | ~2019-09-01 | XMS | Encounter Summary ---
Demographics + + + | Address | [address] | | | [place] [address] | + + + | Home Phone | | + + + | Preferred Language | Unknown | + + + | Marital Status | | + + + | Cheondoism Affiliation | Unknown | + + + | Race | Unknown | + + + | Ethnic Group | Unknown | + + + Author + + + | Author | [facility] | | | and [place] | + + + | Organization | [facility] | | | and [place] | + + + | Address | Unknown | + + + | Phone | Unavailable | + + + Support + + + + + | Name | Relationship | Address | Phone | + + + + + | Alma Gramajo | ECON | [address] | | | | | [place] [address] | | + + + + + Care Team Providers + +------+ + | Care Forklift Technician Name | Role | Phone | + +------+ + | Priyanka Sal PA-C | PCP | | + +------+ + Reason for Visit + + + | Reason | Comments | + + + | Follow-up | MRI follow up | + + + Encounter Details +--------+---------+ + + + | Date | Type | Department | Care Team | Description | +--------+---------+ + + + | 04/23/ | Office | [facility] | Berhane Chavez, | Lumbar spinal | | 2015 | Visit | NEUROSURGERY [address] | PA-C [address] | stenosis (Primary | | | | [address] | [address] [place] | Dx) | | | | [place], [place] | [place] [address] | | | | | [address] | [phone] | | | | | [phone] | | | +--------+---------+ + + + [...] + + + | Blood Pressure | 134/86 | 04/23/2016 9:31 AM | | | | | PDT | | + + + + + | Pulse | 60 | 04/23/2016 9:31 AM | | | | | PDT | | + + + + + | Temperature | - | - | | + + + + + | Respiratory Rate | 18 | 04/23/2016 9:31 AM | | | | | PDT | | + + + + + | Oxygen Saturation | - | - | | + + + + + | Inhaled Oxygen | - | - | | | Concentration | | | | + + + + + | Weight | 133.8 kg (295 lb) | 04/23/2016 9:31 AM | | | | | PDT | | + + + + + | Height | 188 cm (6' 2") | 04/23/2016 9:31 AM | | | | | PDT | | + + + + + | Body Mass Index | 37.88 | 04/23/2016 9:31 AM | | | | | PDT | | + + + + + documented in this encounter Progress Notes Berhane Chavez PA - 04/23/2016 10:06 AM PDTFormatting of this note might be different f rom the original. LAMIN Lindsay [address] [facility] [place] [address] [place], [place] [id number] FAX: NEUROSURGERY FOLLOW-UP CHIEF COMPLAINT: Chief Complaint Patient presents with Follow-up MRI follow up HISTORY OF PRESENT ILLNESS: The patient is a 41 y.o. male that I saw in September for a foll ow up on is back pain. This is following a injury he sustained at work. In August 2014 wh en he was lifting a box at his job at the [employer]. While lifting this box and tw isting he felt a pop in his back and felt sudden onset of severe pain and pain shooting down both legs.It took quite a while for him to get his MRI authorized and completed but he is here today to review results and discuss treatment options. He has had right leg weakness since his previous surgery and this continues. However he now complains of bilateral leg noreen n in addition to his right leg weakness. Pain continues to be vague but he thinks it is usua lly on his lateral thigh. He states he is able to stand and walk for about 10 yours a day a t work but comes home with quite a bit of back and leg pain. At his last vi sit it was predominantly his right leg that was bothering him. Since his last visit his left leg is now affected too. PAST MEDICAL HISTORY: Past Medical History Diagnosis [...] capsule Take 1,000 Units by mouth Daily. ibuprofen (ADVIL,MOTRIN) 600 MG tablet lovastatin (MEVACOR) 20 mg tablet No current facility-administered medications for this visit. ALLERGIES: No Known Allergies SOCIAL HISTORY: The patient reports that he has never smoked. He uses smokeless tobacco. He reports that gabriele whitten does not drink alcohol or use illicit drugs. FAMILY HISTORY: Family History Problem Relation Age of Onset Other (see comment) Mother Heart problems Cancer Paternal Grandmother Other (see comment) Paternal Grandfather Heart problems INTERIM PHYSICAL EXAMINATION: Blood pressure 134/86, pulse 60, resp. rate 18, height 1.88 m (6' 2"), weight 133.811 kg (2 95 lb). Body mass index is 37.86 kg/(m^2). GENERAL: Zaheer Gramajo is in no acute distress with unlabored respirations. HEENT: HEAD/FACE: Normocephalic and atraumatic. There are no areas of recent trauma. CHEST: Clear to ausculation without crackles or wheeze. HEART: Regular rate and rhythm without murmurs. SPINE: No significant findings on inspection. EXTREMITIES: No lower extremity edema. NEUROLOGICAL EXAMINATION: MENTAL STATUS: The patient is awake, alert, and oriented. He follows simple and complex commands. He speech is fluent, his comprehends speech well, and his repeats well. He has no apparent deficits with short or termite treater helper memory. CRANIAL NERVES: Fundoscopic Exam: The optic disc is sharp. Normal vascular pattern is visualized II: Acuity is intact. Enamorado are full [...] Intrinsics 5 5 Ulnar Intrinsics 5 5 Diamond Broker Strength 5 5 Hip Flexion 4 5 Hip Extension 4+ 5 Knee Flexion 4 5 Knee Extension 5 5 Dorsiflexion 4 5 Extensor Hallicus Longus 5 5 Plantarflexion 4+ 5 SENSORY EXAM: Sensory exam shows dullness throughout the right L4, L5, and S1 dermatomes of his right leg . Patient feels hypersensitivity to the left L4, L5, and S1 dermatomes of his left leg REFLEXES: (2 OR 2+ IS NORMAL) REFLEX: RIGHT LEFT BICEPS 2 2 BRACHIORADIALIS 2 2 TRICEPS 2 2 PATELLAR 2 2 ACHILLES 1 1 ROY'S ABSENT ABSENT PLANTAR DOWNGOING DOWNGOING GAIT: Gait is steady. PERIPHERAL NERVE/MISC: Tinel is negative at the wrists and elbows bilaterally. Phalen is negative. Straight leg raise is negative bilaterally. Javier's test of the hips is negative bilaterally. RADIOGRAPHIC REVIEW: The patient's imaging was reviewed in detail with the patient today during the visit. The M RI from 2016 shows mild to moderate diffuse lumbar spondylosis. He has congenitally short pe dicales. This along with a broad disc bulge at L3-4 and mild thickening of the Ligament of f lavum creates moderate to severe spinal stenosis at that level. Otherwise no significant fin dings. ASSESSMENT: Encounter Diagnosis Name Primary? 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 Overall, the patient is doing fair. Although he has been able to do his job full-time symptoms have been progressively worsening and he is currently on light duty at work. I had a lengthy discussion with the patient about his options for care including surgical a nd non-surgical options. The patient decided that their best option based on my opinion was to first proceed with bilateral L3-L4 transforaminal epidural steroid injections. Patient will follow-up with Dr. Garcia in approximately 8 weeks for reevaluation of the injection an d discussion of future treatment options. He is quite young and should in general avoid joby kenton if at all possible but is symptoms continue, he may be a candidate for a L3-L4. There is no doubt the patient has severe spinal stenosis. However, I'm surprised that he i s able to walk 1 mile and be on his feet for 8-10 hours at work. Furthermore, the patient's symptoms do not seem to improve when he sits down and rests which was typical for a patient with severe spinal stenosis. ELECTRONICALLY SIGNED BY: LAMIN Lindsay, 04/23/2016 10:06 documented in this encounter Plan of Treatment Not on filedocumented as of this encounter Visit Diagnoses + + | Diagnosis | + + | Lumbar spinal stenosis - Primary Spinal stenosis, lumbar region, without neurogenic | | claudication | + + documented in this encounter
--- OUTSIDE RECORDS SUMMARY | ~2019-09-01 | XMS | Encounter Summary ---
Demographics + + + | Address | [address] | | | [place] [address] | + + + | Home Phone | | + + + | Preferred Language | Unknown | + + + | Marital Status | | + + + | Advent Affiliation | Unknown | + + + | Race | Unknown | + + + | Ethnic Group | Unknown | + + + Author + + + | Author | [facility] | | | and [place] | + + + | Organization | [facility] | | | and [place] | + + + | Address | Unknown | + + + | Phone | Unavailable | + + + Support + + + + + | Name | Relationship | Address | Phone | + + + + + | Alma Gramajo | ECON | [address] | | | | | [place] [address] | | + + + + + Care Team Providers + +------+ + | Care Flea Market Seller Name | Role | Phone | + +------+ + | Priyanka Sal PA-C | PCP | | + +------+ + Reason for Referral Evaluate & Treat (Routine) +--------+ + + + + + | Status | Reason | Specialty | Diagnoses / | Referred By | Referred To | | | | | Procedures | Contact | Contact | +--------+ + + + + + | Closed | Specialty | Physical | Diagnoses | Scott, | [facility] | | | Services | Medicine and | Right leg | Berhane Ramon, | Adán Shah MD | | | Required | Rehabilitatio | weakness | PA-C [address] | [address] | | | | n | Lumbar | [address] | [address] [place] | | | | | spondylosis | [address] | [place], [place] | | | | | Spinal | [place], | [address] Phone: | | | | | stenosis of | [place] [address] | [phone] | | | | | lumbar | Phone: | Fax: | | | | | region, | [phone] | [phone] | | | | | unspecified | Fax: | | | | | | whether | [phone] | | | | | | neurogenic | | | | | | | claudication | | | | | | | present | | | | | | | S/P lumbar | | | | | | | fusion | | | +--------+ + + + + + Reason for Visit + + + | Reason | Comments | + + + | Follow-up | Back | + + + Encounter Details +--------+---------+ + + + | Date | Type | Department | Care Team | Description | +--------+---------+ + + + | 12/23/ | Office | [facility] | Berhane Chavez, | Right leg weakness | | 2018 | Visit | NEUROSURGERY [address] | PA-C [address] | (Primary Dx); Lumbar | | | | [address] | [address] [place] | spondylosis; Spinal | | | | [place], [place] | [place] [address] | stenosis of lumbar | | | | [address] | [phone] | region, unspecified | | | | [phone] | | whether neurogenic | | | | | | claudication | | | | | | present; S/P lumbar | | | | | | fusion | +--------+---------+ + + + Social History [...] + + + | Blood Pressure | 123/73 | 12/23/2017 1:19 PM | | | | | PDT | | + + + + + | Pulse | 67 | 12/23/2017 1:19 PM | | | | | PDT [...] + + + + | Weight | 138.8 kg (306 lb) | 12/23/2017 1:19 PM | | | | | PDT | | + + + + + | Height | 188 cm (6' 2") | 12/23/2017 1:19 PM | | | | | PDT | | + + + + + | Body Mass Index | 39.29 | 12/23/2017 1:19 PM | | | | | PDT [...] of this encounter Patient Instructions Patient Instructions Kiesha Haque, Customer Solutions Supervisor - 12/23/2017 1:30 PM PDTIt was a pleasure to see you today. Here is what we discussed. Given that we are both in agreement about our desire to avoid surgery if at all possible I am going to hold off on scheduling you a follow-up appointment with Dr. Garcia. For now, we will simply have you meet with Dr. Oneill and maximize conservative treatment options. documented in this encounter Progress Notes Berhane Chavez PA - 12/23/2017 1:30 PM PDTFormatting of this note might be different f rom the original. LAMIN Lindsay [address] [facility], [address] [place], [place] [address] FAX: [phone] NEUROSURGERY FOLLOW-UP CHIEF COMPLAINT: Chief Complaint Patient presents with Follow-up Back HISTORY OF PRESENT ILLNESS: The patient is a 42 y.o. male that presents for a follow up on his MRI. Patient has a history of lumbar fusion for back and leg symptoms on 02/05/2017. Hi s leg symptoms have not changed much since his last visit. 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 He finds it is difficult to walk sometimes and has trouble flexing his hip and has t o swing his right leg in front. In the office in is his right leg that is weak, but he feels it is his left leg that is weak at the end of the day. Patient returns and overall is doing fair. He has pain medication that he can take as needed for kidney stones. Patient has not done physical therapy or had injections for his back and left leg symptoms. He is really not excited about going back into surgery. He has had 2 previous back surgerie s and knows what it takes to recover. He is not interested in PT, but would be willing to co nsider injections. CURRENT MEDICATIONS: Current Outpatient Prescriptions Medication Sig Dispense Refill Ergocalciferol (VITAMIN D2) 2000 units TABS Take 2,000 Units by mouth Daily. gabapentin (NEURONTIN) 300 mg capsule Take 1 capsule by mouth 3 times daily. Take one t ablet orally on day 1 Take one tablet orally in the morning and the evening on day two Take one tablet with breakfast, lunch, and dinner daily until instructed otherwise. 90 caps ule 2 HYDROcodone-acetaminophen (NORCO) 5-325 mg per tablet Take 1-2 tablets by mouth every 6 hours as needed for Pain. 20 tablet 0 ibuprofen (ADVIL,MOTRIN) 600 MG tablet Take 600 mg by mouth every 6 hours as needed for Pain. lovastatin (MEVACOR) 20 mg tablet Take 40 mg by mouth nightly. No current facility-administered medications for this visit. ALLERGIES: Allergies Allergen Reactions Diazepam Anaphylaxis and Hives SOCIAL HISTORY: The patient reports that he has never smoked. His smokeless tobacco use includes Chew. He reports that he does not drink alcohol or use drugs. INTERIM PHYSICAL EXAMINATION: Blood pressure 123/73, pulse 67, height 1.88 m (6' 2"), weight (!) 138.8 kg (306 lb). Body mass index is 39.29 kg/m. REVIEW OF SYSTEMS GENERALLY: No fever, no [...] present illness. In addition, the patient has numbness/pain of legs, awake with numbness/pain, wea kness, muscle aching, coordination difficulty, change in walk, pain in back, headache. PSYCHIATRIC: No depression, no sleep disorders, no anxiety, no bipolar disorder, no psycho tic episodes. CARDIOVASCULAR: No heart attacks, no heart murmur, no heart fluttering, no chest pain, no ankle swelling. LUNG DISEASE: No shortness of breath, no cough, no tuberculosis, no bloody cough, no asth ma, no emphysema/COPD. GASTROINTESTINAL: No bowel disease, no nausea or vomiting, no rectal bleeding, + constipat ion, no stool incontinence, no liver disease, no gallbladder disease, no abdominal pain, no ulcers. KIDNEY DISEASE: + urinary frequency, no painful or difficult urination, no incontinence. ENDOCRINE: No diabetes, no thyroid disease, no osteopenia or osteoporosis, no breast drain age. SKIN: No breast lumps, no skin changes, no rashes, no itches. HEMATOLOGIC/LYMPHATIC: No enlarged lymph nodes, no easy or unusual bleeding, no personal h istory of cancer. RHEUMATOLOGIC: No joint arthritis, no rheumatoid arthritis. GENERAL: Zaheer Gramajo is in no acute distress with unlabored respirations. The patient does not appear uncomfortable throughout the exam today. HEENT: Head: Normocephalic/atraumatic with no areas of recent trauma. Eyes: Normal sclerae without icterus. Ears: No drainage or tenderness. Nasopharnyx: Clear without drainage. Oropharnyx: Clear without erythema. NECK (ANTERIOR): Supple and without palpable masses. CHEST: Clear to ausculation without crackles or wheeze. HEART: Regular rate and rhythm without murmurs. ABDOMEN: Soft, non-tender, non-distended, and without palpable masses. The patient is obese . EXTREMITIES: No cyanosis, clubbing, or edema. Distal pulses are palpable. NEUROLOGICAL EXAM: MENTAL STATUS: The patient is awake, alert, and oriented. He follows simple and complex commands. His speech is fluent, he comprehends speech well, and he repeats well. 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 CRANIAL NERVES: II: Acuity is intact. [...] Intrinsics 5 5 Ulnar Intrinsics 5 5 Tank Insulator Rubber Strength 5 5 Hip Flexion 4- 5 Hip Extension 5 5 Knee Flexion 5 5 Knee Extension 5 5 Dorsiflexion 4 5 Extensor Hallicus Longus 5 5 Plantarflexion 5 5 SENSORY EXAM: Sensory exam shows no diminished sensation to light touch or pain throughout the upper and lower extremities. REFLEXES: (2 OR 2+ IS NORMAL) REFLEX: RIGHT LEFT BICEPS 2 2 BRACHIORADIALIS 2 2 TRICEPS 2 2 PATELLAR 2 2 ACHILLES 2 2 ROY'S ABSENT ABSENT PLANTAR DOWNGOING DOWNGOING GAIT: Patient walks with a slight limp. I watched him walk out and he was observed swing his right leg swing around to the front si nce he was unable to lift the right leg as much as needed for a normal gait. RADIOGRAPHIC REVIEW: The patient's imaging was reviewed in detail with the patient today during the visit. The MRI from 12/23/2017 shows what appears to be moderate spinal stenosis oddly behind the verteb ral body of L3. This is also appreciated behind the vertebral body of L4 but to a lesser de gree. It is difficult to easily distinguish the borders of the dura and how much room there is. However, it does not appear that there is significant spinal stenosis. I do not appre ciate any significant foraminal stenosis at any level on his left side with the exception of L3-L4 which I'm unable to appreciate due to artifact from the previous hardware and screws. Similar findings are appreciated on the right although the exiting nerve at L3-L4 is sligh tly easy to identify and does not appear to have significant stenosis or nerve root impingem ent. Lumbar x-rays from 12/09/2017 show no major instability. There has been excellent fusion an d the 2 levels previously fused ASSESSMENT: Encounter Diagnoses Name Primary? 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 Some of the preoperative symptoms are improved. [facility] er I am concerned about his quite weak right hip flexors. It is not see the specific source of this from reviewing his MRI. The patient has severe right hip flexor weakness that forces him to adopt a very abnormal g ait. Unfortunately, by the end of the day, he states that this is his good leg and the real significant weakness is present in his left leg. I'm not certain what to make of this comp letely. I am referring him to see Dr. Oneill for an evaluation and consideration of inj ections he feels would be potentially helpful. Although I do not specifically see any surg ical targets I am concerned about his reported weakness and his observed right hip flexor we akness. Therefore, I am scheduling a follow-up for him to see Dr. Garcia. Patient is aware that this appointment will likely not be for a period of about 12 weeks. During this time, if he begins to develop any significant increased weakness I would like him to call our off ice and I will see what I can do to move his appointment up. Patient did express that he is reluctant to pursue more surgery unless it is felt to be necessary. The meantime, he is go ing to meet with Dr. Oneill and try conservative treatment. ELECTRONICALLY SIGNED BY: LAMIN Lindsay, 12/23/2017 16:44 documented in this encounter Plan of Treatment + + +--------+ + + | Name | Type | Priori | Associated Diagnoses | Order Schedule | | | | ty | | | + + +--------+ + + | Ambulatory referral | Outpatient | Routin | Right leg weakness | Ordered: 12/23/2017 | | to Physical Medicine | Referral | e | Lumbar spondylosis | | | Rehab | | | Spinal stenosis of | | | | | | lumbar region, | | | | | | unspecified whether | | | | | | neurogenic | | | | | | claudication present | | | | | | S/P lumbar fusion | | + + +--------+ + + documented as of this encounter Visit Diagnoses + + | Diagnosis | + + | Right leg weakness - Primary Other musculoskeletal symptoms referable to limbs | + + | Lumbar spondylosis Lumbosacral spondylosis without myelopathy | + + | Spinal stenosis of lumbar region, unspecified whether neurogenic claudication present | + + | S/P lumbar fusion Arthrodesis status | + + documented in this encounter
--- OUTSIDE RECORDS SUMMARY | ~2019-09-01 | XMS | Encounter Summary ---
Demographics + + + | Address | [address] | | | [place] [address] | + + + | Home Phone | | + + + | Preferred Language | Unknown | + + + | Marital Status | | + + + | Cheondoism Affiliation | Unknown | + + + | Race | Unknown | + + + | Ethnic Group | Unknown | + + + Author + + + | Author | [facility] | | | and [place] | + + + | Organization | [facility] | | | and [...] | | | | | [place] [address] | | + + + + + Care Team Providers + +------+ + | Care Head Inspector And Center Marker Name | Role | Phone | + +------+ + | Priyanka Sal PA-C | PCP | | + +------+ + Encounter Details +--------+ + + + + | Date | Type | Department | Care Team | Description | +--------+ + + + + | 02/02/ | Episode | [facility] | Tre Hackett | | | 2018 | Changes | [address] | [place] | | | | | [place] | | | | | | [address] | | | | | | [phone] | | | +--------+ + + + [...] + + documented as of this encounter Functional Status + + + [...]
--- OUTSIDE RECORDS SUMMARY | ~2019-09-01 | XMS | Encounter Summary ---
Demographics + + + | Address | [address] | | | [place] [address] | + + + | Home Phone | | + + + | Preferred Language | Unknown | + + + | Marital Status | | + + + | Orthodoxy Affiliation | Unknown | + + + | Race | Unknown | + + + | Ethnic Group | Unknown | + + + Author + + + | Author | [facility] | | | and [place] | + + + | Organization | [facility] | | | and [place] | + + + | Address | Unknown | + + + | Phone | Unavailable | + + + Support + + + + + | Name | Relationship | Address | Phone | + + + + + | Alma Gramajo | ECON | [address] | | | | | [place] [address] | | + + + + + Care Team Providers + +------+ + | Care Microbiology Instructor Name | Role | Phone | [...] | Lumbar | Mai, | [address] | | | | | radiculopath | Adán Shah MD | Mare Garvey, | | | | | y | [address] | [place] | | | | | Procedures | [place] | [address] | | | | | LA INJECT | [place], [place] | Phone: | | | | | ANES/STEROID | [address] | [phone] | | | | | FORAMEN | Phone: | Fax: | | | | | LUMBAR/SACRA | [phone] | [phone] | | | | | L W IMG | Fax: | | | | | | GUIDE ,1 | [phone] | | | | | | LEVEL LA | | | | | | | TRIAMCINOLON | | | | | | | E ACET INJ | | | | | | | NOS, 10 MG | | | | | | | Bilateral | | | | | | | L3-L4 TFESI | | | +--------+--------+ + + + + Encounter Details +--------+ + + + + | Date | Type | Department | Care Team | Description | +--------+ + + + + | 07/08/ | Hospital | [facility] | Cici, | Spinal stenosis of | | 2018 | Encounter | MED CTR XRAY [address] | [address] | lumbar region with | | | | [address] [place] | [address] [place], | neurogenic | | | | [place] [address] | [place] [address] | claudication; Lumbar | | | | [phone] | [phone] | radiculopathy; | | | | | | History of lumbar | | | | | Roller Inspector And MenderYuri | fusion | +--------+ + + + + Social [...] +---------+ + + | Blood Pressure | 151/67 | 07/08/2018 3:39 PM | | | | | PST | | + +---------+ + + | Pulse | 63 | 07/08/2018 3:22 PM | | | | | PST | | + +---------+ + + | [...] +---------+ + + documented in this encounter Functional [...] | | 0 | | | | (ADVIL,MOTRIN) 600 | every 6 hours as | | | | | | MG tablet | needed for Pain. | | | | | + + + +---------+ + + | lovastatin | Take 40 mg by mouth | | 0 | 08/18/20 | | | (MEVACOR) 20 mg | nightly. | | | 15 | | | tablet | | | | | | + + + +---------+ + + | gabapentin | Take 1 capsule by | 90 | 2 | 12/03/19 | | | (NEURONTIN) 300 mg | mouth 3 times daily. | capsule | | 18 | 8 | | capsule | Take one tablet | | | | | | | orally on day 1Take | | | | | | | one tablet orally in | | | | | | | the morning and the | | | | | | | evening on day | | | | | | | twoTake one tablet | | | | | | | with breakfast, | | | | | | | lunch, and dinner | | | | | | | daily until | | | | | | | instructed | | | | | | | otherwise. | | | | | + + [...] | FL EPIDURAL STEROID | Routin | 07/08/2018 | Spinal stenosis of | Results for this | | INJECTION LUMBAR | e | 3:21 PM | lumbar region with | procedure are in the | | TRANSFORAMINAL | | PST | neurogenic | results section. | | | | | claudication Lumbar | | | | | | radiculopathy | | | | | | History of lumbar | | | | | | fusion | | + +--------+ + + + documented in this encounter Results FL BASHIR Lumbar Transforaminal (07/08/2018 3:21 PM PST) + + | Specimen | + + | | + + + + -+ | Narrative | Performed At | + + -+ | 07/08/2018 | [facility] | | Bilateral Transforaminal Epidural Steroid Injections Diagnosis: Lumbar | | | radiculopathy ICD-10 Code M54.16 Zaheer Gramajo presents to | | | the fluoroscopy suite for fluoroscopically-guided bilateral L3-L4 | | | transforaminal epidural steroid injections as part of conservative | | | management for chronic pain with lumbar radiculopathy and degenerative | | | disc disease. After informed consent was obtained, the patient lay in | | | the prone position on the fluoroscopy table. The areas were | | | identified under fluoroscopic guidance. The areas were prepped and | | | draped in sterile fashion. A 25-gauge, 1.5-inch needle was inserted | | | into each region and approximately 3 mL of buffered 1% lidocaine was | | | infused. Then, a 22-gauge spinal needle was inserted into the | | | posterior superior transforaminal space bilaterally and advanced into | | | the epidural space under fluoroscopic guidance. Confirmation into the | | | epidural space was obtained with infusion of approximately 1 mL of | | | Omnipaque contrast which showed epidural flow as well as nerve sheath | | | flow. Then, a combination of 2 mL of 1% lidocaine and 2 mL of 6 mg/mL | | | betamethasone was infused, divided between the two sides. The patient | | | tolerated the procedure well without complications. Pre- and | | | post-procedure blood pressures were stable. The patient was given | | | verbal as well as written follow-up instructions. Prior to the start | | | of the procedure, the following were performed and/or verified, | | | including correct patient identity, correct site/side marked and | | | visible, agreement on the procedure to be done, correct patient | | | positioning and an accurate procedure consent form. Any safety | | | precautions based on clinical history and/or medication use have been | | | addressed. I personally performed the procedure above. Estimated blood | | | loss: MinimalComplications: NoneFindings: As expectedAnesthesia: | | | Local 1% Lidocaine | | |visible, agreement on the procedure to be done, correct patient | | |positioning and an accurate procedure consent form. Any safety precautions | | |based on clinical history and/or medication use have been addressed. I | | |personally performed the procedure above. | | | | | |Estimated blood loss: Minimal | | |Complications: None | | |Findings: As expected | | |Anesthesia: Local 1% Lidocaine | | | | | | | | + + -+ + +---------+ + + | Performing | Address | City/State/Zipcode | Phone Number | | Organization | | | | + +---------+ + + | [facility] | | | | + +---------+ + + documented in this encounter Visit Diagnoses + + | Diagnosis | + + | Spinal stenosis of lumbar region with neurogenic claudication Spinal stenosis, lumbar | | region, with neurogenic claudication | + + | Lumbar radiculopathy Thoracic or lumbosacral neuritis or radiculitis, unspecified | + + | History of lumbar fusion | + + documented in this encounter Administered Medications + +--------+ +-------+------+------+ | Medication Order | MAR | Action | Dose | Rate | Site | | | Action | Date | | | | + +--------+ +-------+------+------+ | betamethasone (CELESTONE | Given | 07/08/20 | 12 mg | | | | SOLUSPAN) injection 12 mg 12 mg, | | 18 3:31 | | | | | Other, ONCE, 07/08/18 at | | PM PST | | | | | 1530, For 1 dose, Shake well. Not | | | | | | | for IV use., | | | | | | + +--------+ +-------+------+------+ +---+---+ | | | +---+---+ + +-------+ +-------+---+---+ | iohexol (OMNIPAQUE 300) 300 | Given | 07/08/20 | 4 mLs | | | | mg/mL injection 4 mL 4 mL, | | 18 3:29 | | | | | INTRATHECAL, ONCE, 07/08/18 at | | PM PST | | | | | 1530, For 1 dose | | | | | | + +-------+ +-------+---+---+ +---+---+ | | | +---+---+ + +-------+ +-------+---+---+ | lidocaine (PF) 1% injection 2 | Given | 07/08/20 | 2 mLs | | | | mL 2 mL, Other, ONCE, Fri | | 18 3:31 | | | | | 07/08/18 at 1530, For 1 dose | | PM PST | | | | + +-------+ +-------+---+---+ +---+---+ | | | +---+---+ + +-------+ +-------+---+ + | lidocaine buffered 1.3% | Given | 07/08/20 | 6 mLs | | Other | | injection 6 mL 6 mL, | | 18 3:26 | | | (Comment | | Intradermal, ONCE, 07/08/18 at | | PM PST | | | ) | | 1530, For 1 dose | | | | | | + +-------+ +-------+---+ + +---+---+ | | | +---+---+ documented in this encounter"
--- OUTSIDE RECORDS SUMMARY | ~2019-09-01 | XMS | Encounter Summary ---
Demographics + + + | Address | [address] | | | [place] [address] | + + + | Home Phone | | + + + | Preferred Language | Unknown | + + + | Marital Status | | + + + | Tenriism Affiliation | Unknown | + + + | Race | Unknown | + + + | Ethnic Group | Unknown | + + + Author + + + | Author | [facility] | | | and [place] | + + + | Organization | [facility] | | | and [place] | + + + | Address | Unknown | + + + | Phone | Unavailable | + + + Support + + + + + | Name | Relationship | Address | Phone | + + + + + | Alma Gramajo | ECON | [address] | | | | | [place] [address] | | + + + + + Care Team Providers + +------+ + | Care Lubrication Equipment Servicer Name | Role | Phone | + +------+ + | Priyanka Sal PA-C | PCP | | + +------+ + Reason for Visit Auth/Cert +--------+--------+ + + + + | Status | Reason | Specialty | Diagnoses / | Referred By | Referred To | | | | | Procedures | Contact | Contact | +--------+--------+ + + + + | | | | Diagnoses | | | | | | | | | | | | | | Nephrolithia | | | | | | | sis (N20.0) | | | | | | | Procedures | | | | | | | CT | | | | | | | CYSTO/URETER | | | | | | | O | | | | | | | W/LITHOTRIPS | | | | | | | Y &ADAM | | | | | | | STENT INSRT | | | | | | | Left | | | | | | | Ureteroscopy | | | | | | | , Laser | | | | | | | Lithotripsy | | | | | | | and Stent | | | +--------+--------+ + + + + Encounter Details +--------+ + + + + | Date | Type | Department | Care Team | Description | +--------+ + + + + | 02/12/ | Hospital | [facility] | [facility] | Kidney stone | | 2018 | Encounter | [facility] | MD Conor Lagos | | | | | [address] | [place] | | | | | [place] | [address] | | | | | [address] | | | | | | [phone] | | | +--------+ + + + [...] + + + | Blood Pressure | 112/62 | 02/12/2018 2:00 PM | | | | | PDT | | + + + + + | Pulse | 51 | 02/12/2018 2:00 PM | | | | | PDT | | + + + + + | Temperature | 37.1 C (98.8 F) | 02/12/2018 8:53 AM | | | | | PDT | | + + + + + | Respiratory Rate | 16 | 02/12/2018 2:00 PM | | | | | PDT | | + + + + + | Oxygen Saturation | 97% | 02/12/2018 2:00 PM | | | | | PDT | | + + + + + | Inhaled Oxygen | - | - | | | Concentration | | | | + + + + + | Weight | 137.4 kg (302 lb | 02/12/2018 6:33 AM | | | | 14.6 oz) | PDT | | + + + + + | Height | 188 cm (6' 2") | 02/12/2018 6:33 AM | | | | | PDT | | + + + + + | Body Mass Index | 38.89 | 02/12/2018 6:33 AM | | | | | PDT [...] documented as of this encounter Discharge Instructions Instructions Greta Kirby RN - 02/12/2018Formatting of this note might be different fro m the original. Treating Kidney Stones: Ureteroscopic Stone Removal Ureteroscopic stone removal may be done before, after, or instead of other treatments. If y ou need this procedure, your healthcare provider will discuss its risks and possible complic ations. You will be told how to prepare. And you will be told about anesthesia that will janette p you pain-free during treatment. A ureteroscope lets your doctor see your stone before removing it. Removing the stone through the ureter Ureteroscopic stone removal extracts a small stone in your ureter without an incision. Your doctor places a viewing tube (ureteroscope) in your ureter. A wire basket inserted through the tube removes the stone. Sometimes, a laser or a mechanical device is used to break up th e stone. A soft tube may be left in your ureter briefly to drain urine. The stone may be fragmented. The stone is then withdrawn or passed. Your recovery This is an outpatient or overnight procedure. For a few days after surgery, you may feel so me pain when you urinate. Or you may need to urinate more often, or have bloody urine. You m ay have a ureteral stent. This is a soft tube that prevents blockage from swelling after the procedure. The stent is removed when the swelling goes down, often within days. Follow up a s instructed to check for any new stones. When to call your healthcare provider Call your healthcare provider right away if: You have sudden pain or flank pain You have a fever over 100.4F (38C) You have nausea that lasts for days You have heavy bleeding when you urinate You have heavy bleeding through your drainage tube You have swelling or redness around your incision Date Last Reviewed: 10/02/201619997733-7430 [employer]. [address] [place] [address]. All righ ts reserved. This information is not intended as a substitute for professional medical care. Always follow your healthcare professional's instructions. Anesthesia: General Anesthesia You are watched continuously during your procedure by your anesthesia provider. You re due to have surgery. During surgery, you ll be given medicine called anesthesia or anesthetic. This will keep you comfortable and pain-free. Youranesthesia providerwill use general anesthesia. What is general anesthesia? General anesthesia puts you into a state like deep sleep. It goes into the bloodstream (IV anesthetics), into the lungs (gas anesthetics), or both. You feel nothing during the procedu re. You will not remember it. During the procedure, the anesthesia provider monitors you con tinuously. He or she checks your heart rate and rhythm, blood pressure, breathing, and blood oxygen. IV anesthetics. IV anesthetics are given through an IV line in your arm. They re often given first. This is so you are asleep before a gas anesthetic is started. Some kinds of IV anesthetics relieve pain. Others relax you. Your doctor will decide which kind is best in y our case. Gas anesthetics. Gas anesthetics are breathed into the lungs. They are often used to janette p you asleep. They can be given through a facemask or a tube placed in your larynx or trache a (breathing tube). If you have a facemask, your anesthesia provider will most likely place it over your nos e and mouth while you re still awake. You ll breathe oxygen through the mask as your IV anesthetic is started. Gas anesthetic may be added through the mask. If you have atube in the larynx or trachea,it will be inserted into your throat afte r you re asleep. Anesthesia tools and medicines You will likely have: IV anesthetics. These are put into an IV line into your bloodstream. Gas anesthetics.You breathe theseanestheticsinto your lungs, where they pass into your bloodstream. Pulse oximeter. This is a small clip that is attached tothe end of your finger. This m easures your blood oxygen level. Electrocardiography leads (electrodes).These are small sticky pads that are placedon your chest. They record your heart rate and rhythm. Blood pressure cuff. This reads your blood pressure. Risks and possible complications General anesthesia has some risks. These include: Breathing problems Nausea and vomiting Sore throat or hoarseness (usually temporary) Allergic reaction to the anesthetic Irregular heartbeat (rare) Cardiac arrest (rare) Anesthesia safety Follow all instructions you are given for how long not to eat or drink before your proce dure. Be sure your doctor knows what medicines and drugsyou take. This includes jrnt-tkd-tcb nter medicines, herbs, supplements, alcohol or other drugs. You will be asked when those wer e last taken. Have an adult family member or friend drive you home after the procedure. For the first 24 hours after your surgery: Do not drive or use heavy equipment. Do not make important decisions or sign legal documents. If important decisions or signi ng legal documents is necessary during the first 24 hours after surgery, have a trusted fami ly member or spouse act on your behalf. Avoid alcohol. Havea responsible adultstay with you.He or shecan watch for problems and help ke ep you safe. Date Last Reviewed: 08/01/201619993607-5962 [employer]. [address] [place] [address]. All righ ts reserved. This information is not intended as a substitute for professional medical care. Always follow your healthcare professional's instructions. F/U in the office in 1week for cystoscopy and stent removal. documented in this encounter Medications at Time [...] mg by mouth | | 0 | 12/18/20 | | | (MEVACOR) 20 mg | [...] | | Take 1-2 tablets by | 30 | 0 | 02/13/20 | | | HYDROcodone-acetamin | mouth every 4 hours | tablet | | 18 | 8 | | ophen (NORCO) 5-325 | as needed for Pain. | | | | | | mg per tablet | | | | | | + + + +---------+ + + | | Take 1-2 tablets by | 20 | 0 | 12/10/19 | | | HYDROcodone-acetamin | mouth every 6 hours | tablet | | 18 | 8 | | ophen (NORCO) 5-325 | as needed for Pain. | | | | | | mg per tablet | | | | | | + + + +---------+ + + | tamsulosin | Take 1 capsule by | 15 | 0 | 02/13/20 | | | (FLOMAX) 0.4 mg CAPS | mouth nightly for 30 | capsule | | 18 | 8 | | | days. | | | | | + + + +---------+ + + documented as of this encounter Plan of Treatment Not on filedocumented as of this encounter Procedures + +--------+ + + + | Procedure Name | Priori | Date/Time | Associated Diagnosis | Comments | | | ty | | | | + +--------+ + + + | FL PYELOGRAM | Routin | 02/12/2018 | | Results for this | | RETROGRADE | e | 9:02 AM | | procedure are in the | | | | PDT | | results section. | + +--------+ + + + | CALCULI ANALYSIS | Routin | 02/12/2018 | | Results for this | | | e | 8:43 AM | | procedure are in the | | | | PDT | | results section. | + +--------+ + + + | CYSTOSCOPY | | 02/12/2018 | Nephrolithiasis | | | URETEROSCOPY W/ | | 7:33 AM | (N20.0) | | | LASER | | PDT | | | + +--------+ + + + documented in this encounter Results FL Pyelogram Retrograde (02/12/2018 9:02 AM PDT) + + | Specimen | + + | | + + + + + | Narrative | Performed At | + + + | This exam has been auto-finalized and the interpretation may exist | [facility] | | elsewhere in the chart. | | + + + + +---------+ + + | Performing | Address | City/State/Zipcode | Phone Number | | Organization | | | | + +---------+ + + | [facility] | | | | + +---------+ + + Calculi Analysis (02/12/2018 8:43 AM PDT) + + + + + + | Component | Value | Ref Range | Performed | Pathologist | | | | | At | Signature | + + + + + + | CALCULI | CommentComment: Specimen | mm | REFERENCE | | | SIZE | received as fragments. | | [facility] | | | | | | - [facility] | | + + + + + + | Stone | CommentComment: | | REFERENCE | | | Composition | Percentage (Represents | | [facility] | | | | the % composition) | | - [facility] | | + + + + + + | Color | Simon | | REFERENCE | | | | | | [facility] | | | | | | - [place] | | + + + + + + | Calculi | 7.0 | mg | REFERENCE | | | Weight | | | [facility] | | | | | | - [place] | | + + + + + + | Ca | 90 | % | REFERENCE | | | Oxalate,Mon | | | [facility] | | | ohydr. | | | - [facility] | | + + + + + + | STONE CA | 10 | % | REFERENCE | | | PHOSPHATE | | | [facility] | | | | | | - [facility] | | + + + + + + | Nidus | No Nidus visualized | | REFERENCE | | | | | | [facility] | | | | | | - [facility] | | + + + + + + | Photo | CommentComment: | | REFERENCE | | | | Photograph will follow | | LAB [facility] | | | | under separate cover. | | - [facility] | | + + + + + + | CALCULI | CommentComment: | | REFERENCE | | | COMMENT | Physician questions | | [facility] | | | | regarding Calculi | | - [facility] | | | | Analysis contact [facility] | | | | | | at:[phone]. | | | | + + + + + + | Please note | CommentComment: Calculi | | REFERENCE | | | | report with photograph | | [facility] | | | | will follow via | | - [facility] | | | | computer, mail orcourier | | | | | | delivery. | | | | + + + + + + | Disclaimer | CommentComment: This | | REFERENCE | | | | test was developed and | | [facility] | | | | its performance | | - [facility] | | | | characteristicsdetermine | | | | | | d by [facility]. It has not | | | | | | been cleared or | | | | | | approvedby the Food and | | | | | | Drug Administration. | | | | + + + + + + + + | Specimen | + + | Tissue - Entire left | | ureter (body | | structure) | + + + + + | Narrative | Performed At | + + + | Performed at: [facility] [address], | REFERENCE LAB | | [place], [place] [id number] Barrel Reamer: Adam Jacob MD, Phone: | [facility] | | [phone] | | + + + + + + + + | Performing | Address | City/State/Zipcode | Phone Number | | Organization | | | | + + + + + | REFERENCE LAB | [address] | [place] [address] | [phone] | | [facility] | [address] | | | + + + + + documented in this encounter Visit Diagnoses + + | Diagnosis | + + | Kidney stone Calculus of kidney | + + documented in this encounter Administered Medications + +--------+---------+------+------+------+ | Medication Order | MAR | Action | Dose | Rate | Site | | | Action | Date | | | | + +--------+---------+------+------+------+ + +---+ | albuterol 2.5 mg/3 mL nebulizer | | | solution 2.5 mg 2.5 mg, | | | Nebulization, ONCE PRN, Wheezing, | | | Starting [facility] 02/12/18 at 0632, | | | For 1 dose, RT will administer., | | | Pre-op | | + +---+ | | | + +---+ | albuterol 2.5 mg/3 mL nebulizer | | | solution 2.5 mg 2.5 mg, | | | Nebulization, ONCE PRN, Wheezing, | | | Starting [facility] 02/12/18 at 0840, | | | For 1 dose, Notify anesthesia if | | | patient is wheezing and does not | | | have a history of asthma or COPD | | | or current smoking., | | | Recovery/Phase I | | + +---+ | | | + +---+ | albuterol-ipratropium (DUONEB) | | | 2.5-0.5 mg/3 mL nebulizer | | | solution 3 mL 3 mL, | | | Nebulization, ONCE PRN, Wheezing, | | | Starting [facility] 02/12/18 at 0632, | | | For 1 dose, Pre-op | | + +---+ | | | + +---+ | albuterol-ipratropium (DUONEB) | | | 2.5-0.5 mg/3 mL nebulizer | | | solution 3 mL 3 mL, | | | Nebulization, ONCE PRN, Wheezing, | | | Shortness of Breath, Starting | | | [facility] 02/12/18 at 0840, For 1 dose, | | | Recovery/Phase I | | + +---+ | | | + +---+ + +-------+ +--------+---+---+ | ciprofloxacin (CIPRO) tablet | Given | 02/13/20 | 500 mg | | | | 500 mg 500 mg, Oral, ONCE, Fri | | 18 6:46 | | | | | 02/12/18 at 0700, For 1 dose, Give | | AM PDT | | | | | 2 hours before or 6 hours after | | | | | | | antacids, dairy, calcium, iron, | | | | | | | or zinc., Pre-op, Indications: | | | | | | | Surgical Prophylaxis, UTI - UPPER | | | | | | + +-------+ +--------+---+---+ + +---+ | | | + +---+ | dextrose 50% injection 12.5-25 | | | g 12.5-25 g, Intravenous, EVERY | | | 15 MIN PRN, Low Blood Sugar, Give | | | 12.5g (25 mL) IV if blood | | | glucose 50-69 mg/dL. Give 25g | | | (50 mL) IV if blood glucose < 50, | | | Starting [facility] 02/12/18 at 0632, | | | Repeat in 15 min if blood glucose | | | remains < 70 mg/dL. Repeat | | | blood glucose in 30 min once | | | blood glucose > 70., Pre-op | | + +---+ | | | + +---+ | dextrose 50% injection 12.5-25 | | | g 12.5-25 g, Intravenous, EVERY | | | 15 MIN PRN, Low Blood Sugar, For | | | hypoglycemia. Give 12.5g (25ml) | | | IV if blood glucose 50-69 | | | mg/dL. Give 25g (50ml) IV if | | | blood glucose < 50, Starting [facility] | | | 02/12/18 at 0840, Give over 2 min. | | | Repeat in 15 min if blood | | | glucose remains < 70 mg/dL. | | | Repeat blood glucose in 30 min | | | once blood glucose > 70., | | | Recovery/Phase I | | + +---+ | | | + +---+ | ePHEDrine 50 mg/mL injection 5 | | | mg 5 mg, Intravenous, EVERY 5 | | | MIN PRN, if SBP <90., Starting | | | [facility] 02/12/18 at 0840, Hold if HR > | | | 100. Maximum total dose 20mg., | | | Recovery/Phase I | | + +---+ | | | + +---+ | fentaNYL (PF) injection 25-50 | | | mcg 25-50 mcg, Intravenous, | | | EVERY 5 MIN PRN, Pain, Starting | | | [facility] 02/12/18 at 0840, Maximum | | | total dose 250 mcg. PACU IV | | | Narcotic Priority: Only use | | | fentanyl for immediate post-op | | | pain (one dose) or breakthrough | | | pain when any other IV narcotics | | | ordered have been ineffective (if | | | ordered). If both morphine and | | | hydromorphone are ordered, use | | | morphine first, and use | | | hydromorphone if morphine | | | ineffective., Recovery/Phase I | | + +---+ | | | + +---+ | hydrALAZINE (APRESOLINE) | | | injection 5 mg 5 mg, | | | Intravenous, EVERY 20 MINUTES | | | PRN, For SBP > 180, DBP > 100, | | | Starting [facility] 02/12/18 at 0840, | | | Hold if HR > 100. Maximum total | | | dose 40 mg. Use labetalol first | | | if available., Recovery/Phase I | | + +---+ | | | + +---+ | HYDROmorphone (DILAUDID) | | | injection 0.2-0.5 mg 0.2-0.5 mg, | | | Intravenous, EVERY 5 MIN PRN, | | | Pain, Starting [facility] 02/12/18 at | | | 0840, Maximum total dose 4 mg. | | | PACU IV Narcotic Priority: Only | | | use fentanyl for immediate | | | post-op pain (one dose) or | | | breakthrough pain when any other | | | IV narcotics ordered have been | | | ineffective (if ordered). If | | | both morphine and hydromorphone | | | are ordered, use morphine first, | | | and use hydromorphone if morphine | | | ineffective., Recovery/Phase I | | + +---+ | | | + +---+ | HYDROmorphone (DILAUDID) | | | injection 0.25-1 mg 0.25-1 mg, | | | Intravenous, EVERY 2 HOURS PRN, | | | Pain, Starting [facility] 02/12/18 at | | | 0923, If oral route not an | | | option. Slow IV push, not faster | | | than 0.3mg/minute. First dose | | | must be lowest dose, titrate to | | | effective dose by repeat of | | | lowest dose every 30 minutes prn | | | pain, may not exceed maximum dose | | | ordered per interval. Use Pasero | | | Sedation Scale., Post-op/Phase | | | II | | + +---+ | | | + +---+ + +-------+ +-------+---+---+ | ketorolac (TORADOL) injection | Given | 02/13/20 | 15 mg | | | | 15 mg 15 mg, Intravenous, EVERY | | 18 9:51 | | | | | 6 HOURS PRN, Pain, Starting [facility] | | AM PDT | | | | | 02/12/18 at 0923, For 5 days, | | | | | | | Recovery/Phase I | | | | | | + +-------+ +-------+---+---+ + +---+ | | | + +---+ | labetalol (TRANDATE) 5 mg/mL | | | injection 5 mg 5 mg, | | | Intravenous, EVERY 5 MIN PRN, For | | | SBP > 180, DBP > 100, Starting | | | [facility] 02/12/18 at 0840, Hold if HR < | | | 60. Maximum total dose 300mg. | | | Notify anesthesia if patient | | | requires more than 50mg., | | | Recovery/Phase I | | + +---+ | | | + +---+ + +---------+ +--------+-------+---+ | lactated ringers (LR) infusion | New Bag | 02/13/20 | 1,000 | 100 | | | at 10-100 mL/hr, Intravenous, | | 18 11:16 | mLs | mL/hr | | | CONTINUOUS, Starting [facility] 02/12/18 | | AM PDT | | | | | at 0700, TKO., Pre-op | | | | | | + +---------+ +--------+-------+---+ +---------+ +---+-------+---+ | New Bag | 02/13/20 | | 100 | | | | 18 6:55 | | mL/hr | | | | AM PDT | | | | +---------+ +---+-------+---+ + +---+ | | | + +---+ | metoclopramide (REGLAN) 5 mg/mL | | | injection 10 mg 10 mg, | | | Intravenous, EVERY 6 HOURS PRN, | | | Nausea, Vomiting, Starting [facility] | | | 02/12/18 at 0840, Protect from | | | light., Recovery/Phase I | | + +---+ | | | + +---+ + +-------+ +------+---+---+ | ondansetron (ZOFRAN ODT) | Given | 02/13/20 | 8 mg | | | | disintegrating tablet 8 mg 8 mg, | | 18 6:46 | | | | | Oral, ONCE, [facility] 02/12/18 at 0700, | | AM PDT | | | | | For 1 dose, Please administer in | | | | | | | pre-op prior to procedure, | | | | | | | Pre-op | | | | | | + +-------+ +------+---+---+ +---+---+ | | | +---+---+ + +-------+ +------+---+---+ | oxybutynin (DITROPAN) tablet 5 | Given | 02/13/20 | 5 mg | | | | mg 5 mg, Oral, EVERY 8 HOURS | | 18 11:26 | | | | | PRN, Bladder Spasms, Starting [facility] | | AM PDT | | | | | 02/12/18 at 0923, Hold all | | | | | | | antispasmodics after 0200 hours., | | | | | | | Post-op/Phase II | | | | | | + +-------+ +------+---+---+ +---+---+ | | | +---+---+ + +-------+ +------+---+---+ | oxyCODONE (ROXICODONE) tablet | Given | 02/13/20 | 5 mg | | | | 5-20 mg 5-20 mg, Oral, EVERY 3 | | 18 11:26 | | | | | HOURS PRN, Pain, Starting [facility] | | AM PDT | | | | | 18 at 0923, First dose must | | | | | | | be the lowest dose, can titrate | | | | | | | to effective dose by repeat of | | | | | | | lowest dose every 60 minutes prn | | | | | | | pain, may not exceed maximum dose | | | | | | | ordered per interval. Use Pasero | | | | | | | Sedation Scale., Post-op/Phase | | | | | | | II | | | | | | + +-------+ +------+---+---+ +---+---+ | | | +---+---+ + +-------+ +--------+---+---+ | phenazopyridine (PYRIDIUM) | Given | 02/13/20 | 200 mg | | | | tablet 200 mg 200 mg, Oral, 3 | | 18 9:54 | | | | | TIMES DAILY PRN, Urinary | | AM PDT | | | | | Symptoms, urinary burning., | | | | | | | Starting [facility] 02/12/18 at 0923, | | | | | | | Administer with meals., | | | | | | | Post-op/Phase II | | | | | | + +-------+ +--------+---+---+ +---+---+ | | | +---+---+ + +-------+ +---------+---+---+ | promethazine (PHENERGAN) (IV | Given | 02/13/20 | 6.25 mg | | | | ONLY) injection 6.25 mg 6.25 mg, | | 18 10:15 | | | | | Intravenous, EVERY 15 MIN PRN, | | AM PDT | | | | | Nausea, Vomiting, Starting [facility] | | | | | | | 02/12/18 at 0840, For 4 doses, | | | | | | | TAKE PRECAUTIONS WHEN | | | | | | | ADMINISTERING Dilute to 10-20mL | | | | | | | with NS. Give over 2-3 minutes | | | | | | | into large vein. Use ondansetron | | | | | | | first if both are ordered., | | | | | | | Recovery/Phase I | | | | | | + +-------+ +---------+---+---+ +---+---+ | | | +---+---+ + +-------+ +--------+---+---+ | tamsulosin (FLOMAX) capsule 0.4 | Given | 02/13/20 | 0.4 mg | | | | mg 0.4 mg, Oral, DAILY AFTER | | 18 11:27 | | | | | BREAKFAST, First dose on [facility] | | AM PDT | | | | | 02/12/18 at 0945, May open capsule | | | | | | | and sprinkle over acidic soft | | | | | | | food (applesauce, yogurt) or in a | | | | | | | small quantity of acidic fruit | | | | | | | juice (orange, grape). Do not | | | | | | | crush, chew or dissolve | | | | | | | granules., Post-op/Phase II | | | | | | + +-------+ +--------+---+---+ +---+---+ | | | +---+---+ documented in this encounter
--- OUTSIDE RECORDS SUMMARY | ~2019-09-01 | XMS | Encounter Summary ---
Demographics + + + | Address | [address] | | | [place] [address] | + + + | Home Phone | | + + + | Preferred Language | Unknown | + + + | Marital Status | | + + + | Zoroastrianism Affiliation | Unknown | + + + | Race | Unknown | + + + | Ethnic Group | Unknown | + + + Author + + + | Author | [facility] | | | and [place] | + + + | Organization | [facility] | | | and [...] | | | | | [place] [address] | | + + + + + Care Team Providers + +------+ + | Care Hot Wound Spring Production Supervisor Name | Role | Phone | + +------+ + | Priyanka Sal PA-C | PCP | | + +------+ + Reason for Visit + + + | Reason | Comments | + + + | Appointment | Rescheduled from 11/26/17 to 12/01/17 | + + + Encounter Details +--------+ + + + + | Date | Type | Department | Care Team | Description | +--------+ + + + + | 11/13/ | Telephone | [facility] | Emil Garcia, | Appointment | | 2017 | | NEUROSURGERY [address] | DO [address] | (Rescheduled from | | | | [address] | [address] [place], [place] | 11/26/17 to 12/01/17) | | | | [place], [place] | [id number] | | | | | [address] | | | | | | [phone] | | | +--------+ + + + [...]
--- OUTSIDE RECORDS SUMMARY | ~2019-09-01 | XMS | Encounter Summary ---
Demographics + + + | Address | [address] | | | [place] [address] | + + + | Home Phone | | + + + | Preferred Language | Unknown | + + + | Marital Status | | + + + | Taoism Affiliation | Unknown | + + + | Race | Unknown | + + + | Ethnic Group | Unknown | + + + Author + + + | Author | [facility] | | | and [place] | + + + | Organization | [facility] | | | and [place] | + + + | Address | Unknown | + + + | Phone | Unavailable | + + + Support + + + + + | Name | Relationship | Address | Phone | + + + + + | Alma Gramajo | ECON | [address] | | | | | [place] [address] | | + + + + + Care Team Providers + +------+ + | Care Sea Foam Kiss Maker Name | Role | Phone | + +------+ + | Hudson Nair | PCP | | | MD | | | + +------+ + Encounter Details +--------+ + + + + | Date | Type | Department | Care Team | Description | +--------+ + + + + | 05/17/ | Hospital | [facility] | Emil Garcia, | | | 2012 - | Encounter | MED CTR SUR[facility] | DO [address] | | | | | [address] | [place] [address] [place] | | | 05/24/ | | [place] [id number] | [address] | | | 2012 | | [phone] | | | +--------+ + + + + Social History + +-------+ +--------+------+ | Tobacco Use | Types | Packs/Day | Years | Date | | | | | Used | | + +-------+ +--------+------+ | Never Assessed | | | | | + +-------+ [...] + documented as of this encounter Discharge Summaries Provider Not, In System - 05/24/2013 8:10 AM [place], [place] [address] Patient Name: ROSARIO GRAMAJO Provider: Emil Garcia DO Unit #: [id number] Location: [facility] : 1975 ADMISSION DATE: 05/17/2013 DISCHARGE DATE: 05/24/2013 ADMISSION DIAGNOSIS Large herniated disk T11-12. DISCHARGE DIAGNOSES 1. LARGE HERNIATED DISK T11-12. 2. LOWER EXTREMITY PARESIS. SERVICE: Neurosurgery, Dr. Garcia attending PROCEDURES PERFORMED 1. Thoracic decompression with diskectomy and interbody fusion T11-12, and posterior instru mentation T11-12 performed 05/18/2013. 2. Thoracic laminectomy T11 and T12 performed 05/18/2013. HOSPITAL COURSE: The patient was admitted on 05/17/2013, 7-8 weeks after he was lifting a d resser and experienced lower pain and numbness. He underwent chiropractic manipulation for several weeks and then followed up with the primary care physician, who ordered an MRI and demonstrated a large disk herniation at T11-12 with severe deformation of the spinal cord and cord signal change. He was brought in urgently for surgical decompression and fusion of T11-12. The surgery went well. Postoperatively, he was densely paretic in the lower extrem ities, therefore, he was taken back to surgery for a posterior decompression in the form of laminectomy, where no hematoma was found, the had been pulsating well. There was no other disk material found. After that surgery he was still paretic. However, throughout the course of his hospitalization he has gotten much stronger, especially on the left lower extremity. The right lower extremity remains paretic, but is stronger than it was original ly after surgery. He is improving, with therapy, and he is tolerating his orals. He does hav e a neurogenic bowel and bladder at this point. He required replacement of the Gant cathet er and became distended and had to have an NG tube placed. Currently he does have flatus bu t no bowel movements yet. He is requesting to go to inpatient rehabilitation. DISPOSITION: Transfer to inpatient rehabilitation. CONDITION: Improving. SPECIAL INSTRUCTIONS: The patient is instructed to avoid any extreme bending or twisting of his back, any lifting more than 5 pounds. He is to comply with inpatient rehab and continu e wearing his brace when out of bed. The patient has verbally agreed to comply with these i nstructions. MEDICATIONS 1. Decadron 4 mg by mouth q.12h. 2. Colace 100 mg by mouth twice daily. 3. Pepcid 20 mg by mouth twice daily. 4. Neurontin 200 mg at bedtime. 5. Heparin 5000 units subcutaneous every 8 hours. 6. Oxycodone 10 mg orally at breakfast and lunch. 7. Tylenol 650 mg by mouth every 4 hours as needed for pain or fever. 8. Dulcolax 10 mg r ectally b.i.d. p.r.n. constipation. 9. Tranxene 7.5 mg by mouth every 6 hours as needed fo r spasms. 10. Valium 5 mg by mouth every 6 hours as needed for spasm. 11. Gabapentin 200 mg by mouth every 4 hours. 12. Maalox 30 mL by mouth before meals and at bedtime as needed for dyspepsia. 13. Cepaco l lozenge as needed for sore throat. 14. Reglan 10 mg IV as needed for vomiting or nausea. 15. Morphine 2-4 mg IV every 3 hours as needed for severe pain. 16. Zofran oral or IV kirill ry 4 hours as needed for nausea or vomiting. 17. Percocet 10/325, 1 to 2 p.o. q.4h. p.r.n. pain. DICTATED BY: Emil Garcia DO Neurosurgery JOB #: [id number] EXT JOB #:[id number] <<Signature on File>> PACO Gonsalez 05/27/13 0649 < documented in this encounter Medications at Time of Discharge + +-----+ +---------+ + + | Medication | Sig | Dispensed | Refills | Start | End Date | | | | | | Date | | + +-----+ +---------+ + + | cyclobenzaprine | | | 0 | 05/05/20 | | | (FLEXERIL) 10 mg | | | | 13 | 6 | | tablet | | | | | | + +-----+ +---------+ + + documented as of this encounter Plan of Treatment Not on filedocumented as of this encounter Procedures + +--------+ + + + | Procedure Name | Priori | Date/Time | Associated Diagnosis | Comments | | | ty | | | | + +--------+ + + + | CBC NO DIFFERENTIAL | Routin | 05/23/2013 | | Results for this | | | e | 7:22 AM | | procedure are in the | | | | PDT | | results section. | + +--------+ + + + | COMPREHENSIVE | Routin | 05/23/2013 | | Results for this | | METABOLIC PANEL | e | 7:22 AM | | procedure are in the | | | | PDT | | results section. | + +--------+ + + + | XR ABDOMEN AP | Routin | 05/21/2013 | | Results for this | | | e | 9:30 AM | | procedure are in the | | | | PDT | | results section. | + +--------+ + + + | CBC NO DIFFERENTIAL | Routin | 05/21/2013 | | Results for this | | | e | 4:35 AM | | procedure are in the | | | | PDT | | results section. | + +--------+ + + + | BASIC METABOLIC | Routin | 05/21/2013 | | Results for this | | PANEL | e | 4:35 AM | | procedure are in the | | | | PDT | | results section. | + +--------+ + + + | XR ABDOMEN AP | Routin | 05/20/2013 | | Results for this | | | e | 9:57 AM | | procedure are in the | | | | PDT | | results section. | + +--------+ + + + | XR ABDOMEN AP | Routin | 05/20/2013 | | Results for this | | | e | 8:31 AM | | procedure are in the | | | | PDT | | results section. | + +--------+ + + + | CT ANGIOGRAM CHEST W | Routin | 05/19/2013 | | Results for this | | CONTRAST | e | 1:22 PM | | procedure are in the | | | | PDT | | results section. | + +--------+ + + + | MRI LUMBAR SPINE WO | Routin | 05/19/2013 | | Results for this | | CONTRAST LIMITED | e | 10:52 AM | | procedure are in the | | | | PDT | | results section. | + +--------+ + + + | MRI THORACIC SPINE | Routin | 05/19/2013 | | Results for this | | WO CONTRAST | e | 10:52 AM | | procedure are in the | | | | PDT | | results section. | + +--------+ + + + | CBC WITH | Routin | 05/19/2013 | | Results for this | | DIFFERENTIAL | e | 10:01 AM | | procedure are in the | | | | PDT | | results section. | + +--------+ + + + | BASIC METABOLIC | Routin | 05/19/2013 | | Results for this | | PANEL | e | 10:01 AM | | procedure are in the | | | | PDT | | results section. | + +--------+ + + + | CULTURE, MRSA | Routin | 05/19/2013 | | | | | e | 12:09 AM | | | | | | PDT | | | + +--------+ + + + | PROTIME INR | Routin | 05/18/2013 | | Results for this | | (FINGERSTICK) | e | 9:20 PM | | procedure are in the | | | | PDT | | results section. | + +--------+ + + + | CT ANGIOGRAM ABDOMEN | Routin | 05/18/2013 | | Results for this | | W CONTRAST | e | 11:09 AM | | procedure are in the | | | | PDT | | results section. | + +--------+ + + + | TYPE AND SCREEN | Routin | 05/17/2013 | | Results for this | | | e | 8:51 PM | | procedure are in the | | | | PDT | | results section. | + +--------+ + + + | PTT | Routin | 05/17/2013 | | Results for this | | | e | 8:25 PM | | procedure are in the | | | | PDT | | results section. | + +--------+ + + + | PROTIME INR | Routin | 05/17/2013 | | Results for this | | | e | 8:25 PM | | procedure are in the | | | | PDT | | results section. | + +--------+ + + + | CBC WITH | Routin | 05/17/2013 | | Results for this | | DIFFERENTIAL | e | 8:25 PM | | procedure are in the | | | | PDT | | results section. | + +--------+ + + + | BASIC METABOLIC | Routin | 05/17/2013 | | Results for this | | PANEL | e | 8:25 PM | | procedure are in the | | | | PDT | | results section. | + +--------+ + + + documented in this encounter Results Comprehensive Metabolic Panel (05/23/2013 7:22 AM PDT) + + + + + + | Component | Value | Ref Range | Performed | Pathologist | | | | | At | Signature | + + + + + + | Glucose | 120 (H) | 70 - 109 mg/dL | [facility] | | | | | [facility] | | | | | [facility] | | | | | [facility] - | | | | | | LABORATORY | | + + + + + + | Calcium | 9.3 | 8.3 - 10.5 | [facility] | | | | | mg/dL | [facility] | | [facility] | | [facility] | | | | | | [facility] - | | | | | | LABORATORY | | + + + + + + | Alkaline | 45 | 40 - 110 IU/L | [facility] | | | Phosphatase | | | [facility] | | | | | | [facility] | | | | | | [facility] - | | | | | | LABORATORY | | + + + + + + | AST | 21 | 10 - 42 IU/L | [facility] | | | | | | [facility] | | | | | | [facility] | | | | | | [facility] - | | | | | | LABORATORY | | + + + + + + | ALT | 25 | 6 - 45 IU/L | [facility] | | | | | | [facility] | | | | | | [facility] | | | | | | [facility] - | | | | | | LABORATORY | | + + + + + + | Bilirubin | 1.2 (H) | 0.2 - 1.0 mg/dL | [facility] | | | Total | | | [facility] | | | | | | [facility] | | | | | | [facility] - | | | | | | LABORATORY | | + + + + + + | Total | 6.2 | 6.0 - 7.8 gm/dL | [facility] | | | Protein | | | [facility] | | | | | | [facility] | | | | | | [facility] - | | | | | | LABORATORY | | + + + + + + | Albumin | 3.1 (L) | 3.2 - 5.0 gm/dL | [facility] | | | | | | [facility] | | | | | | [facility] | | | | | | [facility] - | | | | | | LABORATORY | | + + + + + + | BUN | 24 (H) | 7 - 18 mg/dL | [facility] | | | | | | [facility] | | | | | | [facility] | | | | | | [facility] - | | | | | | LABORATORY | | + + + + + + | Creatinine | 0.87 | 0.60 - 1.30 | [facility] | | | | | mg/dL | [facility] | [facility] | [facility] | | | | | | [facility] - | | | | | | LABORATORY | | + + + + + + | Estimated | >60Comment: For | >60 mL/min/A | [facility] | | | GFR | -Americans, | | [facility] | | | | please multiply the | | MEDICAL | | | | result by 1.210 | | CENTER - | | | | This is an estimated | | LABORATORY | | | | GFR and is based on a | | | | | | standard adult | | | | | | body mass (A=1.73m2) and | | | | | | serum creatinine | | | | + + + + + + | BUN/Creatin | 27.6 (H) | 12 - 20 | [facility] | | | ine Ratio | | | [facility] | | | | | | [facility] | | | | | | CENTER - | | | | | | LABORATORY | | + + + + + + | Na | 140 | 136 - 149 mEq/L | [facility] | | | | | | [facility] | | | | | | [facility] | | | | | | [facility] - | | | | | | LABORATORY | | + + + + + + | K | 4.3 | 3.5 - 5.1 mEq/l | [facility] | | | | | | [facility] | | | | | | [facility] | | | | | | C[facility] - | | | | | | LABORATORY | | + + + + + + | Cl | 101 | 98 - 109 mEq/l | [facility] | | | | | | [facility] | | | | | | [facility] | | | | | | CENTER - | | | | | | LABORATORY | | + + + + + + | CO2 | 28 | 24 - 31 mEq/L | [facility] | | | | | | [facility] | | | | | | [facility] | | | | | | CENTER - | | | | | | LABORATORY | | + + + + + + | Anion Gap | 15.3 | 6.0 - 17.0 | [facility] | | | | | | [facility] [...] | [facility] | [address] | [place] | [phone] | | [facility] | | [address] | | | - LABORATORY | | | | + + + + + | [facility] | [address] | [place] | | | [facility] | | [address] | | | - LABORATORY | | | | + + + + + CBC no Differential (05/23/2013 7:22 AM PDT) + + + + + + | Component | Value | Ref Range | Performed | Pathologist | | | | | At | Signature | + + + + + + | WBC | 15.6 (H) | 4.0 - 11.0 K/uL | [facility] | | | | | | [facility] | | | | | | [facility] | | | | | | C[facility] - | | | | | | LABORATORY | | + + + + + + | RBC | 4.56 | 4.30 - 5.70 | [facility] | | | | | M/uL | [facility] | | | | | | [facility] | | | | | | CENTER - | | | | | | LABORATORY | | + + + + + + | Hemoglobin | 13.9 (A) | 13.5 - 18.0 | [facility] | | | | | gm/dL | [facility] | | | | | | [facility] | | | | | | CENTER - | | | | | | LABORATORY | | + + + + + + | Hematocrit | 41.3 | 40.0 - 51.0 % | [facility] | | | | | | [facility] | | | | | | [facility] | | | | | | CENTER - | | | | | | LABORATORY | | + + + + + + | MCV | 90.4 | 83.0 - 101.0 fL | [facility] | | | | | | [facility] | | | | | | [facility] | | | | | | CENTER - | | | | | | LABORATORY | | + + + + + + | MCH | 30.5 | 28.0 - 35.0 pg | [facility] | | | | | | [facility] | | | | | | [facility] | | | | | | CENTER - | | | | | | LABORATORY | | + + + + + + | MCHC | 33.7 | 32.0 - 36.0 | [facility] | | | | | g/dL | [facility] | | | | | | [facility] | | | | | | CENTER - | | | | | | LABORATORY | | + + + + + + | RDW-CV | 14.2 | <15.0 % | [facility] | | | | | | [facility] | | | | | | [facility] | | | | | | CENTER - | | | | | | LABORATORY | | + + + + + + | Platelet | 191 | 140 - 440 K/uL | [facility] [...] + | [facility] | [address] | [place], [place] | [phone] | | [facility] | | [address] | | | - LABORATORY | | | | + + + + + | [facility] | [address] | [place] | | | [facility] | | [address] | | | - LABORATORY | | | | + + + + + XR Abdomen AP (05/21/2013 9:30 AM PDT) + + | Specimen | + + | | + + + + + | Narrative | Performed At | + + + | [facility] | [facility] | | Department [address] [place] [address] | [facility] | | [ rep [address]] [ rep [facility] | | [facility]] Signed | - IMAGING | | | | | Patient Name: ROSARIO GRAMAJO | | | Physician: DENILSON : 1975 Age: 38 Sex: M Unit | | | #: [id number] Exam Date: 05/21/13 Location: | | | 3ES 322-1 Report #: [id number] Page: | | | %(RAD)RES..mtdd.print.filter("pg") of %(RAD) | | | RES..mtdd.print.filter("tpg") | | | | | | Accession Number: [id number] | | | ABDOMEN ONE VIEW X-RAY CLINICAL HISTORY: ABDOMINAL | | | PAIN. COMPARISON: 05/20/2013 FINDINGS: | | | Spinal fusion hardware incompletely visualized. Nondilated gaseous | | | filling of the large bowel extending to the rectum is again seen, | | | now with stool within the ascending colon, suggestive of transit of | | | bowel contents. No focally dilated small bowel loops are seen. | | | IMPRESSION: GAS-FILLED NONDILATED LARGE BOWEL, WITH | | | STOOL NOW WITHIN THE ASCENDING COLON, SUGGESTIVE OF TRANSIT OF BOWEL | | | CONTENTS. Dictated Date/Time: 05/21/2013 09:30 | | | Transcribed Date/Time: 05/21/2013 09:43 Printmaker: | | | 1 <<Signature on File>> | | | Michael | | | Tristen Landers MD05/23/13 1025 <Electronically signed by Michael Ramon | | | Anshul LYNCH> Michael Landers MD 05/21/13 2585 | | | Printmaker: Ana Deahsaffdhizv86/20/13 0943 | | | | | + + + + + + + + | Performing | Address | City/State/Zipcode | Phone Number | | Organization | | | | + + + + + | [facility] | [address] | [place] | [phone] | | [facility] | | [address] | | | - IMAGING | | | | + + + + + Basic Metabolic Panel (05/21/2013 4:35 AM PDT) + + + + + + | Component | Value | Ref Range | Performed | Pathologist | | | | | At | Signature | + + + + + + | Glucose | 130 (H) | 70 - 109 mg/dL | [facility] | | | | | | [facility] | | | | | | MEDICAL | | | | | | CENTER - | | | | | | LABORATORY | | + + + + + + | Calcium | 9.1 | 8.3 - 10.5 | [facility] | | | | | mg/dL | [facility] | | | | | | MEDICAL | | | | | | CENTER - | | | | | | LABORATORY | | + + + + + + | BUN | 19 (H) | 7 - 18 mg/dL | [facility] | | | | | | [facility] | | | | | | MEDICAL | | | | | | CENTER - | | | | | | LABORATORY | | + + + + + + | Creatinine | 0.74 | 0.60 - 1.30 | [facility] | | | | | mg/dL | [facility] | | | | | | MEDICAL | | | | | | CENTER - | | | | | | LABORATORY | | + + + + + + | Estimated | >60Comment: For | >60 mL/min/A | [facility] | | | GFR | -Americans, | | [facility] | | | | please multiply the | | MEDICAL | | | | result by 1.210 | | CENTER - | | | | This is an estimated | | LABORATORY | | | | GFR and is based on a | | | | | | standard adult | | | | | | body mass (A=1.73m2) and | | | | | | serum creatinine | | | | + + + + + + | BUN/Creatin | 25.7 (H) | 12 - 20 | [facility] | | | ine Ratio | | | [facility] | | | | | | MEDICAL | | | | | | CENTER - | | | | | | LABORATORY | | + + + + + + | Na | 138 | 136 - 149 mEq/L | [facility] | | | | | | [facility] | | | | | | MEDICAL | | | | | | CENTER - | | | | | | LABORATORY | | + + + + + + | K | 4.1 | 3.5 - 5.1 mEq/l | [facility] | | | | | | [facility] | | | | | | MEDICAL | | | | | | CENTER - | | | | | | LABORATORY | | + + + + + + | Cl | 101 | 98 - 109 mEq/l | [facility] | | | | | | [facility] | | | | | | MEDICAL | | | | | | CENTER - | | | | | | LABORATORY | | + + + + + + | CO2 | 31 (A) | 24 - 31 mEq/L | [facility] | | | | | | [facility] | | | | | | MEDICAL | | | | | | CENTER - | | | | | | LABORATORY | | + + + + + + | Anion Gap | 10.1 | 6.0 - 17.0 | [facility] | | | | | [facility] [...] | [facility] | [address] | [place] | [phone] | | [facility] | | [address] | | | - LABORATORY | | | | + + + + + | [facility] | [address] | [place] | | | [facility] | | [address] | | | - LABORATORY | | | | + + + + + CBC no Differential (05/21/2013 4:35 AM PDT) + + + + + + | Component | Value | Ref Range | Performed | Pathologist | | | | | At | Signature | + + + + + + | WBC | 16.7 (H) | 4.0 - 11.0 K/uL | [facility] | | | | | | [facility] | | | | | | [facility] | | | | | | CENTER - | | | | | | LABORATORY | | + + + + + + | RBC | 4.27 (L) | 4.30 - 5.70 | [facility] | | | | | M/uL | [facility] | | | | | | MEDICAL | | | | | | CENTER - | | | | | | LABORATORY | | + + + + + + | Hemoglobin | 12.8 (L) | 13.5 - 18.0 | [facility] | | | | | gm/dL | [facility] | | | | | | MEDICAL | | | | | | CENTER - | | | | | | LABORATORY | | + + + + + + | Hematocrit | 38.8 (L) | 40.0 - 51.0 % | [facility] | | | | | | [facility] | | | | | | MEDICAL | | | | | | CENTER - | | | | | | LABORATORY | | + + + + + + | MCV | 90.8 | 83.0 - 101.0 fL | [facility] | | | | | | [facility] | | | | | | MEDICAL | | | | | | CENTER - | | | | | | LABORATORY | | + + + + + + | MCH | 30.0 | 28.0 - 35.0 pg | [facility] | | | | | | [facility] | | | | | | MEDICAL | | | | | | CENTER - | | | | | | LABORATORY | | + + + + + + | MCHC | 33.0 | 32.0 - 36.0 | [facility] | | | | | g/dL | [facility] | | | [facility] | | MEDICAL | | | | | | CENTER - | | | | | | LABORATORY | | + + + + + + | RDW-CV | 14.1 | <15.0 % | [facility] | | | | | | [facility] | | | | | | MEDICAL | | | | | | CENTER - | | | | | | LABORATORY | | + + + + + + | Platelet | 180 | 140 - 440 K/uL | [facility] [...] + | [facility] | [address] | [place], [place] | [phone] | | [facility] | | [address] | | | - LABORATORY | | | | + + + + + | [facility] | [address] | [place], [place] | | | [facility] | | [address] | | | - LABORATORY | | | | + + + + + XR Abdomen AP (05/20/2013 9:57 AM PDT) + + | Specimen | + + | | + + + + + | Narrative | Performed At | + + + | [facility] | [facility] | | Department [address] [facility] | [facility] | | [ rep [address]] [ rep [facility] | | [facility]] Signed | - IMAGING | | | | | Patient Name: ROSARIO GRAMAJO | | | Physician: DENILSON : 1975 Age: 38 Sex: M Unit | | | #: [id number] Exam Date: 05/20/13 Location: | | | 4SI 454-1 Report #: [id number] Page: | | | %(RAD)RES..mtdd.print.filter("pg") of %(RAD) | | | RES..mtdd.print.filter("tpg") | | | | | | Accession Number: [id number] | | | ABDOMEN, ONE VIEW X-RAY CLINICAL HISTORY: DISTENTION/PAIN. | | | COMPARISON: 05/19/2013. FINDINGS: Posterior | | | spinal fusion hardware is again seen at T11 and T12. Three columns of | | | skin nancie are seen at a similar level. There is gaseous filling | | | of the large bowel, with large bowel size within normal limits and | | | without evidence of loss of haustration. Gas-filled small bowel loops | | | are also seen, nondilated. Gas extends to the level of the rectum. | | | There is no evidence of bowel wall thickening or pneumatosis | | | intestinalis. IMPRESSION: GASEOUS FILLING OF THE LARGE | | | BOWEL WITHOUT EVIDENCE OF OBSTRUCTION, SUGGESTIVE OF ILEUS. | | | Dictated Date/Time: 05/20/2013 09:57 Transcribed Date/Time: | | | 05/20/2013 10:05 Printmaker: | | | <<Signature on File>> | | | Michael | | | Tristen Landers MD05/21/13 0734 <Electronically signed by Michael Ramon | | | Anshlu LYNCH> Michael Landers MD 05/20/13 0957 | | | Printmaker: [employer] Zakrjwsdrbkup49/19/13 1005 | | | Emil Garcia DO | | + + + + + + + + | Performing | Address | City/State/Zipcode | Phone Number | | Organization | | | | + + + + + | [facility] | [address] | [place] | [phone] | | [facility] | | [address] | | | - IMAGING | | | | + + + + + XR Abdomen AP (05/20/2013 8:31 AM PDT) + + | Specimen | + + | | + + + + + | Narrative | Performed At | + + + | [facility] | [facility] | | Department [address] [place] [address] | [facility] | | [ rep ct [address]] [ rep [facility] | | st zip] Signed | - IMAGING | | | | | Patient Name: ROSARIO GRAMAJO | | | Physician: DENILSON : 1975 Age: 38 Sex: M Unit | | | #: [id number] Exam Date: 05/19/13 Location: | | | 4SI 454-1 Report #: [id number] Page: | | | %(RAD)RES..mtdd.print.filter("pg") of %(RAD) | | | RES..mtdd.print.filter("tpg") | | | | | | Accession Number: [id number] | | | X-RAY ABDOMEN ONE VIEW CLINICAL HISTORY: ABDOMEN | | | DISTENTION AND PAIN. HISTORY OF RECENT SURGERY. | | | FINDINGS: Three columns of skin nancie are seen in the mid | | | epigastric region. The nasogastric tube tip and side port are within | | | the stomach. Posterior spinal fusion hardware is seen at the levels | | | of T11 and T12. There is gaseous distention of the large bowel | | | intermixed with stool extending to the rectum. Gas-filled, | | | nondilated small bowel loops are also seen. There are low lung | | | volumes. IMPRESSION: NONSPECIFIC ABDOMINAL BOWEL | | | GAS PATTERN, LIKELY REPRESENTING ILEUS. Dictated | | | Date/Time: 05/20/2013 08:31 Transcribed Date/Time: 05/20/2013 | | | 08:42 Printmaker: <<Signature | | | on File>> | | | Michael | | | Tristen Landers MD05/20/13 1205 <Electronically signed by Michael Ramon | | | Anshul LYNCH> Michael Landers MD 05/20/13 0831 | | | Printmaker: [employer] Soft[employer]aredominick [id number]/19/13 0842 | | | Emil Garcia, DO | | + + + + + + + + | Performing | Address | City/State/Zipcode | Phone Number | | Organization | | | | + + + + + | [facility] | [address] | [place] | [phone] | | [facility] | | [id number] | | | - IMAGING | | | | + + + + + CT Angiogram Chest W Contrast (05/19/2013 1:22 PM PDT) + + | Specimen | + + | | + + + + + | Narrative | Performed At | + + + | [facility] | [facility] | | Department [address] [place] | [facility] | | [ rep ct [address]] [ rep ct [facility] | | st zip] Signed | - IMAGING | | | | | Patient Name: ROSARIO GRAMAJO | | | Physician: DENILSON : 1975 Age: 38 Sex: M Unit | | | #: [id number] Exam Date: 05/18/13 Location: | | | [facility] [place] 454-1 Report #: [id number] Page: | | | %(RAD)RES..mtdd.print.filter("pg") of %(RAD) | | | RES..mtdd.print.filter("tpg") | | | | | | Accession Number: [id number] | | | CTA OF THE THORACIC SPINE AND LUMBAR SPINE CLINICAL HISTORY: | | | IDENTIFY ARTERY OF ADAMKIEWICZ PRIOR TO THORACIC FUSION SURGERY | | | TODAY. COMPARISON: None. PROTOCOL: Thin | | | section axial CT images of the chest, abdomen, and pelvis were | | | obtained after 100 mL Isovue 370 with reconstruction views. | | | FINDINGS: The thoracic aorta has a normal appearance. The | | | aorta and the branching intercostal and lumbar arteries are well | | | opacified. The artery of Adamkiewicz is not definitively identified, | | | possibly due to the small size. One potential possibility could | | | be at the level of T11 on the left side with a blush of enhancement | | | extending from the left intercostal artery exiting into the T11-12 | | | neural foramen (image 481 on the thin section images, image 121 on | | | the thick section images in the axial plane). The celiac artery, | | | SMA, and NILA are normal. Bilateral renal arteries are normal. | | | Iliac arteries have normal caliber. Neck base is normal. | | | An azygous lobe is seen of the right lung, which is a normal | | | variant. Azygous fissure is present as well. There is some mild | | | dependent atelectasis of the bilateral lungs. Cardiovascular | | | structures are normal. A borderline right paratracheal lymph node is | | | seen that measures 0.9 cm (image 31). Marcia and axilla are normal. | | | There is mild bilateral gynecomastia. There is mild spondylosis | | | of the thoracic spine. Liver, gallbladder, and biliary | | | ducts are normal. The spleen has a heterogeneous appearance, likely | | | due to contrast timing. Pancreas and adrenals are normal. The | | | right kidney and visualized right ureter are normal. The left | | | kidney and ureter are normal. Stomach, small bowel, terminal ileum, | | | appendix, and colon are normal. IVC is normal. There is no | | | significant lymphadenopathy. There is mild spondylosis of the | | | lumbar spine. Bladder, prostate, and seminal vesicles are | | | normal. There is no significant lymphadenopathy. Moderate sized | | | right inguinal canal hernia containing fat is present. There are no | | | acute osseous abnormalities. IMPRESSION: 1. THE | | | ARTERY OF ADAMKIEWICZ IS NOT DEFINITIVELY IDENTIFIED POSSIBLY DUE TO | | | SMALL SIZE. ONE POSSIBILITY IS IN THE LEFT T11/12 LEVEL WITH A SMALL | | | ARTERY APPARENTLY EXTENDING INTO THE LEFT NEURAL FORAMEN AND INTO | | | THE CENTRAL CANAL. 2. REMAINDER OF THE EXAMINATION IS | | | NORMAL. This information was discussed with Dr. Emil Garcia. | | | Dictated Date/Time: 05/18/2013 11:09 Transcribed | | | Date/Time: 05/18/2013 11:26 Printmaker: | | | <<Signature on File>> | | | Reynaldo | | | MD Alfredito05/19/13 0782 <Electronically signed by Reynaldo Glaser MD> | | | Reynaldo Glaser MD 05/19/13 132 Printmaker: [employer] | | | Czfhwwsvmjbmh56/18/13 1322 Emil Garcia, DO | | + + + + + + + + | Performing | Address | City/State/Zipcode | Phone Number | | Organization | | | | + + + + + | [facility] | [address] | [place] | [phone] | | [facility] | | [address] | | | - IMAGING | | | | + + + + + MRI Thoracic Spine wo Contrast (05/19/2013 10:52 AM PDT) + + | Specimen | + + | | + + + + + | Narrative | Performed At | + + + | [facility] | [facility] | | Department [address] [facility], [place] | [facility] | | [ rep ct street1+2] [ rep [facility] | | st zip] Signed | - IMAGING | | | | | Patient Name: ROSARIO GRAMAJO | | | Physician: DENILSON : 1975 Age: 38 Sex: M Unit | | | #: [id number] Exam Date: 05/18/13 Location: | | | [facility] 454-1 Report #: [id number] Page: | | | %(RAD)RES..mtdd.print.filter("pg") of %(RAD) | | | RES..mtdd.print.filter("tpg") | | | | | | Accession Number: [id number] | | | LUMBAR SPINE, LIMITED, WITHOUT CONTRAST AND THORACIC SPINE WITHOUT | | | CONTRAST CLINICAL HISTORY: RECENT SURGERY. UNABLE TO MOVE | | | LOWER EXTREMITIES AFTER SURGERY AT T11-12. COMPARISON: CT | | | 05/18/2013. TECHNIQUE: Multiplanar, multisequence MRI | | | imaging is performed of the lumbar spine and thoracolumbar junction. | | | No contrast is utilized. FINDINGS: There has been | | | interval placement of fusion hardware at the T11 and T12 levels. | | | This somewhat limits evaluation of the central canal and neural | | | foramina at this level. Spine alignment is essentially anatomic. 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 The conus is | | | terminating at the L1-2 level. There is disk narrowing at L1-2 and | | | L2-3. There is relative sparing of the disk spaces and disk signal | | | at L3-4 through L5-S1. There is a hemangioma incidentally noted in | | | L4. No compression deformities. Operative changes are present | | | in the soft tissues focally at the level of T11-12 and extending | | | cranially and caudally, as would be expected. The following | | | levels are evaluated axially. T9-10: Unremarkable. | | | T10-11: Unremarkable. T11-12: Limited by artifact. On | | | the sagittal T2 sequence and somewhat on the T1 sequence there is | | | posterior protrusion of slightly T2 and T1 hyperintense material at | | | the posterior aspect of the central disk and extending slightly | | | right of center. There is contouring of the cord. A significant | | | component of this is due to anatomic distortion from artifact. Some | | | of this is likely due to the material seen protruding in the central | | | canal. The neural foramina are not well assessed. T12-L1: | | | Very minimal posterior disk protrusion. Very mild cord contact | | | without definite cord contouring or signal alteration. The neural | | | foramina are patent. L1-2: Very small posterior disk | | | protrusion. Narrowing of the central spinal canal secondary to that | | | and the congenital narrowing. The neural foramina are patent. | | | Seen only on the sagittal sequence there are spondylosis changes | | | throughout the lumbar spine with small disk protrusions at L2-3, | | | L3-4, L4-5. These are central protrusions. Given the disk changes | | | and the congenital narrowing there is multilevel neural foraminal | | | narrowing which is mild at all levels. IMPRESSION: 1. | | | INTERVAL OPERATIVE FUSION AT T11-12. TAKING INTO ACCOUNT THE | | | DISTORTION FROM ARTIFACT THERE APPEARS TO BE T1 AND T2 BRIGHT | | | MATERIAL POSTERIORLY PROTRUDING AT THE T11-12 DISK LEVEL POSSIBLY | | | CONTACTING AND CONTOURING THE CORD. COMMENT: A preliminary | | | report was provided by Dr. Rowe on 05/18/2013 at 8:52 p.m. | | | Patient subsequently underwent emergent surgery by the ordering | | | provider. Dictated Date/Time: 05/19/2013 10:52 | | | Transcribed Date/Time: 05/19/2013 11:56 Printmaker: | | | <<Signature on File>> | | | Aj | | | Alyssa Monahan MD05/19/13 2525 <Electronically signed by Aj Shah | | | Hero LYNCH> Aj Monahan MD 05/19/13 7453 | | | Printmaker: [employer] Oiqndejkdrldm31/18/13 1156 | | | Emil Garcia DO | | + + + + + + + + | Performing | Address | City/State/Zipcode | Phone Number | | Organization | | | | + + + + + | [facility] | [address] | [place] | [phone] | | [facility] | | [address] | | | - IMAGING | | | | + + + + + MRI Lumbar Spine wo Contrast Limited (05/19/2013 10:52 AM PDT) + + | Specimen | + + | | + + + + + | Narrative | Performed At | + + + | [facility] | [facility] | | Department [address] [place] [address] | [facility] | | [ rep ct street1+2] [ rep [facility] | | [facility]] Signed | - IMAGING | | | | | Patient Name: ROSARIO GRAMAJO | | | Physician: DENILSON : 1975 Age: 38 Sex: M Unit | | | #: [id number] Exam Date: 05/18/13 Location: | | | [address] [place], [place] [address] Report #: [id number] Page: | | | %(RAD)RES..mtdd.print.filter("pg") of %(RAD) | | | RES..mtdd.print.filter("tpg") | | | | | | Accession Number: [id number] | | | LUMBAR SPINE, LIMITED, WITHOUT CONTRAST AND THORACIC SPINE WITHOUT | | | CONTRAST CLINICAL HISTORY: RECENT SURGERY. UNABLE TO MOVE | | | LOWER EXTREMITIES AFTER SURGERY AT T11-12. COMPARISON: CT | | | 05/18/2013. TECHNIQUE: Multiplanar, multisequence MRI | | | imaging is performed of the lumbar spine and thoracolumbar junction. | | | No contrast is utilized. FINDINGS: There has been | | | interval placement of fusion hardware at the T11 and T12 levels. | | | This somewhat limits evaluation of the central canal and neural | | | foramina at this level. Spine alignment is essentially anatomic. 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 The conus is | | | terminating at the L1-2 level. There is disk narrowing at L1-2 and | | | L2-3. There is relative sparing of the disk spaces and disk signal | | | at L3-4 through L5-S1. There is a hemangioma incidentally noted in | | | L4. No compression deformities. Operative changes are present | | | in the soft tissues focally at the level of T11-12 and extending | | | cranially and caudally, as would be expected. The following | | | levels are evaluated axially. T9-10: Unremarkable. | | | T10-11: Unremarkable. T11-12: Limited by artifact. On | | | the sagittal T2 sequence and somewhat on the T1 sequence there is | | | posterior protrusion of slightly T2 and T1 hyperintense material at | | | the posterior aspect of the central disk and extending slightly | | | right of center. There is contouring of the cord. A significant | | | component of this is due to anatomic distortion from artifact. Some | | | of this is likely due to the material seen protruding in the central | | | canal. The neural foramina are not well assessed. T12-L1: | | | Very minimal posterior disk protrusion. Very mild cord contact | | | without definite cord contouring or signal alteration. The neural | | | foramina are patent. L1-2: Very small posterior disk | | | protrusion. Narrowing of the central spinal canal secondary to that | | | and the congenital narrowing. The neural foramina are patent. | | | Seen only on the sagittal sequence there are spondylosis changes | | | throughout the lumbar spine with small disk protrusions at L2-3, | | | L3-4, L4-5. These are central protrusions. Given the disk changes | | | and the congenital narrowing there is multilevel neural foraminal | | | narrowing which is mild at all levels. IMPRESSION: 1. | | | INTERVAL OPERATIVE FUSION AT T11-12. TAKING INTO ACCOUNT THE | | | DISTORTION FROM ARTIFACT THERE APPEARS TO BE T1 AND T2 BRIGHT | | | MATERIAL POSTERIORLY PROTRUDING AT THE T11-12 DISK LEVEL POSSIBLY | | | CONTACTING AND CONTOURING THE CORD. COMMENT: A preliminary | | | report was provided by Dr. Rowe on 05/18/2013 at 8:52 p.m. | | | Patient subsequently underwent emergent surgery by the ordering | | | provider. Dictated Date/Time: 05/19/2013 10:52 | | | Transcribed Date/Time: 05/19/2013 11:55 Printmaker: | | | YAMEL <<Signature on File>> | | | Aj | | | Alyssa Monahan MD05/19/13 1657 <Electronically signed by Aj Shah | | | Hero LYNCH> Aj Monahan MD 05/19/13 1052 | | | Printmaker: Ana Uenbqrhxoooct43/18/13 1155 | | | Emil Garcia DO | | + + + + + + + + | Performing | Address | City/State/Zipcode | Phone Number | | Organization | | | | + + + + + | [facility] | [address] | [place] | [phone] | | [facility] | | [address] | | | - IMAGING | | | | + + + + + CBC with Differential (05/19/2013 10:01 AM PDT) + + + + + + | Component | Value | Ref Range | Performed | Pathologist | | | | | At | Signature | + + + + + + | MANUAL | NO | | [facility] | | [facility] | | | [facility] | | | L ? | | | [facility]ICAL | | | | | | CENTER - | | | | | | LABORATORY | | + + + + + + | WBC | 18.4 (H) | 4.0 - 11.0 K/uL | [facility] | | | | | | [facility] | | | | | | MEDICAL | | | | | | CENTER - | | | | | | LABORATORY | | + + + + + + | RBC | 4.30 | 4.30 - 5.70 | [facility] | | | | | M/uL | [facility] | | | | | | [facility] | | | | | | C[facility] - | | | | | | LABORATORY | | + + + + + + | Hemoglobin | 13.3 (L) | 13.5 - 18.0 | [facility] | | | | | gm/dL | [facility] | | | | | | MEDICAL | | | | | | CENTER - | | | | | | LABORATORY | | + + + + + + | Hematocrit | 38.7 (L) | 40.0 - 51.0 % | [facility] | | | | | | [facility] | | | | | | MEDICAL | | | | | | CENTER - | | | | | | LABORATORY | | + + + + + + | MCV | 89.9 | 83.0 - 101.0 fL | [facility] | | | | | | [facility] | | | | | | MEDICAL | | | | | | CENTER - | | | | | | LABORATORY | | + + + + + + | MCH | 30.9 | 28.0 - 35.0 pg | [facility] | | | | | | [facility] | | | | | | [facility]ICAL | | | | | | CENTER - | | | | | | LABORATORY | | + + + + + + | MCHC | 34.4 | 32.0 - 36.0 | [facility] | | | | | g/dL | [facility] | | | | | | MEDICAL | | | | | | CENTER - | | | | | | LABORATORY | | + + + + + + | RDW-CV | 14.2 | <15.0 % | [facility] | | | | | | [facility] | | | | | | [facility]ICAL | | | | | | CENTER - | | | | | | LABORATORY | | + + + + + + | Platelet | 168 | 140 - 440 K/uL | [facility] | | | Count | | | [facility] | | | | | | MEDICAL | | | | | | CENTER - | | | | | | LABORATORY | | + + + + + + | % | 90.0 (H) | 45 - 75 % | [facility] | | | Neutrophils | | | [facility] | | | | | | MEDICAL | | | | | | CENTER - | | | | | | LABORATORY | | + + + + + + | % | 4.0 (L) | 20 - 45 % | [facility] | | | Lymphocytes | | | [facility] | | | | | | MEDICAL | | | | | | CENTER - | | | | | | LABORATORY | | + + + + + + | % Monocytes | 5.2 | 4 - 12 % | [facility] | | | | | | [facility] | | | | | | MEDICAL | | | | | | CENTER - | | | | | | LABORATORY | | + + + + + + | % | 0.1 | 0 - 5 % | [facility] | | | Eosinophils | | | [facility] | | | | | | MEDICAL | | | | | | CENTER - | | | | | | LABORATORY | | + + + + + + | % Basophils | 0.7 | 0 - 1 % | [facility] | | | | | | [facility] | | | | | | MEDICAL | | | | | | CENTER - | | | | | | LABORATORY | | + + + + + + | Absolute | 16.6 (H) | 1.5 - 6.6 K/uL | [facility] | | | Neutrophils | | | [facility] | | | | | | MEDICAL | | | | | | CENTER - | | | | | | LABORATORY | | + + + + + + | Absolute | 0.7 | 0.6 - 3.2 K/uL | [facility] | | | Lymphocytes | | | [facility] | | | | | | MEDICAL | | | | | | CENTER - | | | | | | LABORATORY | | + + + + + + | Absolute | 1.0 | 0.0 - 1.0 K/uL | [facility] | | | Monocytes | | | [facility] | | | | | | MEDICAL | | | | | | CENTER - | | | | | | LABORATORY | | + + + + + + | Absolute | 0.0 | 0.0 - 0.4 K/uL | [facility] | | | Eosinophils | | | [facility] | | | | | | MEDICAL | | | | | | CENTER - | | | | | | LABORATORY | | + + + + + + | Absolute | 0.1 | 0.0 - 0.1 K/uL | [facility] | | | Basophils | | | [facility] | | | | | | MEDICAL | | | | | | CENTER - | | | | | | LABORATORY | | + + + + + + | SUSPECTED | 1 (H)Comment: Gregorio Grace | | [facility] | | | PROBLEM IS: | | | [facility] | | [...] | [facility] | [address] | [place] | [phone] | | [facility] | | [address] | | | - LABORATORY | | | | + + + + + | [facility] | [address] | [place] | | | [facility] | | [address] | | | - LABORATORY | | | | + + + + + Basic Metabolic Panel (05/19/2013 10:01 AM PDT) + + + + + + | Component | Value | Ref Range | Performed | Pathologist | | | | | At | Signature | + + + + + + | Glucose | 142 (H) | 70 - 109 mg/dL | [facility] | | | | | | [facility] | | | | | | MEDICAL | | | | | | CENTER - | | | | | | LABORATORY | | + + + + + + | Calcium | 8.2 (L) | 8.3 - 10.5 | [facility] | | | | | mg/dL | [facility] | | | | | | MEDICAL | | | | | | CENTER - | | | | | | LABORATORY | | + + + + + + | BUN | 11 | 7 - 18 mg/dL | [facility] | | | | | | [facility] | | | | | | MEDICAL | | | | | | CENTER - | | | | | | LABORATORY | | + + + + + + | Creatinine | 0.92 | 0.60 - 1.30 | [facility] | | | | | mg/dL | [facility] | | | | | | MEDICAL | | | | | | CENTER - | | | | | | LABORATORY | | + + + + + + | Estimated | >60Comment: For | >60 mL/min/A | [facility] | | | GFR | -Americans, | | [facility] | | | | please multiply the | | MEDICAL | | | | result by 1.210 | | CENTER - | | | | This is an estimated | | LABORATORY | | | | GFR and is based on a | | | | | | standard adult | | | | | | body mass (A=1.73m2) and | | | | | | serum creatinine | | | | + + + + + + | BUN/Creatin | 12.0 | 12 - 20 | [facility] | | | ine Ratio | | | [facility] | | | | | | MEDICAL | | | | | | CENTER - | | | | | | LABORATORY | | + + + + + + | Na | 136 | 136 - 149 mEq/L | [facility] | | | | | | [facility] | | | | | | MEDICAL | | | | | | CENTER - | | | | | | LABORATORY | | + + + + + + | K | 4.1 | 3.5 - 5.1 mEq/l | [facility] | | | | | | [facility] | | | | | | MEDICAL | | | | | | CENTER - | | | | | | LABORATORY | | + + + + + + | Cl | 109 | 98 - 109 mEq/l | [facility] | | | | | | [facility] | | | | | | MEDICAL | | | | | | CENTER - | | | | | | LABORATORY | | + + + + + + | CO2 | 23 (L) | 24 - 31 mEq/L | [facility] | | | | | | [facility] | | | | | | MEDICAL | | | | | | CENTER - | | | | | | LABORATORY | | + + + + + + | Anion Gap | 8.1 | 6.0 - 17.0 | [facility] | | | | | [...] + | [facility] | [address] | [place] | [phone] | | [facility] | | [address] | | | - LABORATORY | | | | + + + + + | [facility] | [address] | [place] | | | [facility] | | [address] | | | - LABORATORY | | | | + + + + + Culture, MRSA (05/19/2013 12:09 AM PDT) + + | Specimen | + + | | + + + + + + + | Performing | Address | City/State/Zipcode | Phone Number | | Organization | | | | + + + + + | [facility] | [address] | [place] | [phone] | | [facility] | | [address] | | | - LABORATORY | | | | + + + + + Protime INR (Fingerstick) (05/18/2013 9:20 PM PDT) + +-------+ + + + | Component | Value | Ref Range | Performed | Pathologist | | | | | At | Signature | + +-------+ + + + | PT, POC | 11.7 | | [facility] | | | | | | [facility] | | | | | | MEDICAL | | | | | | CENTER - | | | | | | LABORATORY | | + +-------+ + + + | INR, POC | 1.0 | | [facility] | | | | | [...] + + | [facility] | [address] | [place] | [phone] | | [facility] | | [address] | | | - LABORATORY | | | | + + + + + | [facility] | [address] | [place], [place] | | | [facility] | | [address] | | | - LABORATORY | | | | + + + + + CT Angiogram Abdomen w Contrast (05/18/2013 11:09 AM PDT) + + | Specimen | + + | | + + + + + | Narrative | Performed At | + + + | [facility] | [facility] | | Department [address], [place] | [facility] | | [ rep ct street1+2] [ rep ct [facility] | | st zip] Signed | - IMAGING | | | | | Patient Name: ROSARIO GRAMAJO | | | Physician: DENILSON : 1975 Age: 38 Sex: M Unit | | | #: [id number] Exam Date: 05/18/13 Location: | | | [facility] 316-1 Report #: [id number] Page: | | | %(RAD)RES..mtdd.print.filter("pg") of %(RAD) | | | RES..mtdd.print.filter("tpg") | | | | | | Accession Number: [id number] | | | CTA OF THE THORACIC SPINE AND LUMBAR SPINE CLINICAL HISTORY: | | | IDENTIFY ARTERY OF ADAMKIEWICZ PRIOR TO THORACIC FUSION SURGERY | | | TODAY. COMPARISON: None. PROTOCOL: Thin | | | section axial CT images of the chest, abdomen, and pelvis were | | | obtained after 100 mL Isovue 370 with reconstruction views. | | | FINDINGS: The thoracic aorta has a normal appearance. The | | | aorta and the branching intercostal and lumbar arteries are well | | | opacified. The artery of Adamkiewicz is not definitively identified, | | | possibly due to the small size. One potential possibility could | | | be at the level of T11 on the left side with a blush of enhancement | | | extending from the left intercostal artery exiting into the T11-12 | | | neural foramen (image 481 on the thin section images, image 121 on | | | the thick section images in the axial plane). The celiac artery, | | | SMA, and NILA are normal. Bilateral renal arteries are normal. | | | Iliac arteries have normal caliber. Neck base is normal. | | | An azygous lobe is seen of the right lung, which is a normal | | | variant. Azygous fissure is present as well. There is some mild | | | dependent atelectasis of the bilateral lungs. Cardiovascular | | | structures are normal. A borderline right paratracheal lymph node is | | | seen that measures 0.9 cm (image 31). Marcia and axilla are normal. | | | There is mild bilateral gynecomastia. There is mild spondylosis | | | of the thoracic spine. Liver, gallbladder, and biliary | | | ducts are normal. The spleen has a heterogeneous appearance, likely | | | due to contrast timing. Pancreas and adrenals are normal. The | | | right kidney and visualized right ureter are normal. The left | | | kidney and ureter are normal. Stomach, small bowel, terminal ileum, | | | appendix, and colon are normal. IVC is normal. There is no | | | significant lymphadenopathy. There is mild spondylosis of the | | | lumbar spine. Bladder, prostate, and seminal vesicles are | | | normal. There is no significant lymphadenopathy. Moderate sized | | | right inguinal canal hernia containing fat is present. There are no | | | acute osseous abnormalities. IMPRESSION: 1. THE | | | ARTERY OF ADAMKIEWICZ IS NOT DEFINITIVELY IDENTIFIED POSSIBLY DUE TO | | | SMALL SIZE. ONE POSSIBILITY IS IN THE LEFT T11/12 LEVEL WITH A SMALL | | | ARTERY APPARENTLY EXTENDING INTO THE LEFT NEURAL FORAMEN AND INTO | | | THE CENTRAL CANAL. 2. REMAINDER OF THE EXAMINATION IS | | | NORMAL. This information was discussed with Dr. Emil Garcia. | | | Dictated Date/Time: 05/18/2013 11:09 Transcribed | | | Date/Time: 05/18/2013 11:26 Printmaker: | | | <<Signature on File>> | | | Reynaldo | | | MD Alfredito05/18/13 1615 <Electronically signed by Reynaldo Glaser MD> | | | Reynaldo Glaser MD 05/18/13 1109 Printmaker: [employer] | | | Uqzvytdqwkuly14/17/13 1126 Emil Garcia DO | | + + + + + + + + | Performing | Address | City/State/Zipcode | Phone Number | | Organization | | | | + + + + + | [facility] | [address] | [place] | [phone] | | [facility] | | [address] | | | - IMAGING | | | | + + + + + Type and Screen (05/17/2013 8:51 PM PDT) + + + + + + | Component | Value | Ref Range | Performed | Pathologist | | | | | At | Signature | + + + + + + | ABO | OP | | [facility] | | | | | | [facility] | | | | | | MEDICAL | | | | | | CENTER - | | | | | | LABORATORY | | + + + + + + | Antibody | NEGATIVE | | [facility] | | | Screen | | | [facility] | | [...] + | [facility] | [address] | [place] | [phone] | | [facility] | | [address] | | | - LABORATORY | | | | + + + + + | [facility] | [address] | [place] | | | [facility] | | [address] | | | - LABORATORY | | | | + + + + + CBC with Differential (05/17/2013 8:25 PM PDT) + + + + + + | Component | Value | Ref Range | Performed | Pathologist | | | | | At | Signature | + + + + + + | MANUAL | NO | | [facility] | | [facility] | | | [facility] | | | L ? | | | [facility]ICAL | | | | | | CENTER - | | | | | | LABORATORY | | + + + + + + | WBC | 11.1 (H) | 4.0 - 11.0 K/uL | [facility] | | | | | | [facility] | | | | | | MEDICAL | | | | | | CENTER - | | | | | | LABORATORY | | + + + + + + | RBC | 4.99 | 4.30 - 5.70 | [facility] | | | | | M/uL | [facility] | | | | | | MEDICAL | | | | | | CENTER - | | | | | | LABORATORY | | + + + + + + | Hemoglobin | 15.3 | 13.5 - 18.0 | [facility] | | | | | gm/dL | [facility] | | | | | | MEDICAL | | | | | | CENTER - | | | | | | LABORATORY | | + + + + + + | Hematocrit | 45.3 | 40.0 - 51.0 % | [facility] | | | | | | [facility] | | | | | | MEDICAL | | | | | | CENTER - | | | | | | LABORATORY | | + + + + + + | MCV | 90.8 | 83.0 - 101.0 fL | [facility] | [facility] | [facility] | | | | [facility] - | | | | | | LABORATORY | | + + + + + + | MCH | 30.7 | 28.0 - 35.0 pg | [facility] | [facility] | | | [facility] | | | [facility] | [facility] | | | | | | [facility] - | | | | | | LABORATORY | | + + + + + + | MCHC | 33.8 | 32.0 - 36.0 | [facility] | | | | | g/dL | [facility] | | | | | | [facility] | | | | | | C[facility] - | | | | | | LABORATORY | | + + + + + + | RDW-CV | 14.2 | <15.0 % | [facility] | | | | | [facility] | | | [facility] | [facility] | | | | | | [facility] - | | | | | | LABORATORY | | + + + + + + | Platelet | 168 | 140 - 440 K/uL | [facility] | | | Count | | | [facility] | | | | | | [facility] | | | | | | CENTER - | | | | | | LABORATORY | | + + + + + + | % | 68.3 | 45 - 75 % | [facility] | | | Neutrophils | | | [facility] | | | | | | [facility] | | | | | | CENTER - | | | | | | LABORATORY | | + + + + + + | % | 22.1 | 20 - 45 % | [facility] | | | Lymphocytes | | | [facility] | | | | | | [facility] | | | | | | CENTER - | | | | | | LABORATORY | | + + + + + + | % Monocytes | 6.9 | 4 - 12 % | [facility] | | | | | | [facility] | | | | | | [facility] | | | | | | CENTER - | | | | | | LABORATORY | | + + + + + + | % | 2.1 | 0 - 5 % | [facility] | | | Eosinophils | | | [facility] | | | | | | [facility] | | | | | | CENTER - | | | | | | LABORATORY | | + + + + + + | % Basophils | 0.6 | 0 - 1 % | [facility] | | | | [facility] | [facility] | | | | | | [facility]ENTER - | | | | | | LABORATORY | | + + + + + + | Absolute | 7.6 (H) | 1.5 - 6.6 K/uL | [facility] | | | Neutrophils | | | [facility] | | | | | | [facility] | | | | | | CENTER - | | | | | | LABORATORY | | + + + + + + | Absolute | 2.5 | 0.6 - 3.2 K/uL | [facility] | | | Lymphocytes | | | [facility] | | | | | | [facility] | | | | | | CENTER - | | | | | | LABORATORY | | + + + + + + | Absolute | 0.8 | 0.0 - 1.0 K/uL | [facility] | | | Monocytes | | | [facility] | | | | | | [facility] | | | | | | CENTER - | | | | | | LABORATORY | | + + + + + + | Absolute | 0.2 | 0.0 - 0.4 K/uL | [facility] | | | Eosinophils | | | [facility] | | | | | | [facility] | | | | | | CENTER - | | | | | | LABORATORY | | + + + + + + | Absolute | 0.1 | 0.0 - 0.1 K/uL | [facility] | | | Basophils | | | [facility] | | [...] + | [facility] | [address] | [place], [place] | [phone] | | [facility] | | [address] | | | - LABORATORY | | | | + + + + + | [facility] | [address] | [place], [place] | | | [facility] | | [address] | | | - LABORATORY | | | | + + + + + Protime INR (05/17/2013 8:25 PM PDT) + + + + + + | Component | Value | Ref Range | Performed | Pathologist | | | | | At | Signature | + + + + + + | Prothrombin | 11.4 | 11.3 - 13.9 | [facility] | | | Time | | seconds | [facility] | | | | | | MEDICAL | | | | | | CENTER - | | | | | | LABORATORY | | + + + + + + | PATIENT | 12.5 | seconds | [facility] | | | NORMAL MEAN | | | [facility] | | | | | | MEDICAL | | | | | | CENTER - | | | | | | LABORATORY | | + + + + + + | INR | 0.9Comment: INR: USUAL | 0.9 - 1.1 | [facility] | | | | ORAL ANTICOAGULATION | | [facility] | | | | RANGE | | MEDICAL | | | | 2.0-3.0 | | CENTER - | | | | HIGH LEVEL ORAL | | LABORATORY | | | | ANTICOAGULATION RANGE | | | | | | 2.5-3.5 | | | | + + + + + + + + | Specimen | + + | | + + + + + + + | Performing | Address | City/State/Zipcode | Phone Number | | Organization | | | | + + + + + | [facility] | [address] | [place] | [phone] | | [facility] | | [address] | | | - LABORATORY | | | | + + + + + | [facility] | [address] | [place] | | | [facility] | | [address] | | | - LABORATORY | | | | + + + + + PTT (05/17/2013 8:25 PM PDT) + + + + + + | Component | Value | Ref Range | Performed | Pathologist | | | | | At | Signature | + + + + + + | aPTT | 27.1Comment: Normal | 22.1 - 36.0 | [facility] | | | | Patient Mean Value: 29.0 | seconds | [facility] | | | | seconds | | MEDICAL | | | | [...] + | [facility] | [address] | [place] | [phone] | | [facility] | | [address] | | | - LABORATORY | | | | + + + + + | [facility] | [address] | [place] | | | [facility] | | [address] | | | - LABORATORY | | | | + + + + + Basic Metabolic Panel (05/17/2013 8:25 PM PDT) + + + + + + | Component | Value | Ref Range | Performed | Pathologist | | | | | At | Signature | + + + + + + | Glucose | 94 | 70 - 109 mg/dL | [facility] | | | | | | [facility] | | | | | | MEDICAL | | | | | | CENTER - | | | | | | LABORATORY | | + + + + + + | Calcium | 9.1 | 8.3 - 10.5 | [facility] | | | | | mg/dL | [facility] | | | | | | MEDICAL | | | | | | CENTER - | | | | | | LABORATORY | | + + + + + + | BUN | 11 | 7 - 18 mg/dL | [facility] | | | | | | [facility] | | | | | | MEDICAL | | | | | | CENTER - | | | | | | LABORATORY | | + + + + + + | Creatinine | 0.90 | 0.60 - 1.30 | [facility] | | | | | mg/dL | [facility] | | | | | | MEDICAL | | | | | | CENTER - | | | | | | LABORATORY | | + + + + + + | Estimated | >60Comment: For | >60 mL/min/A | [facility] | | | GFR | -Americans, | | [facility] | | | | please multiply the | | MEDICAL | | | | result by 1.210 | | CENTER - | | | | This is an estimated | | LABORATORY | | | | GFR and is based on a | | | | | | standard adult | | | | | | body mass (A=1.73m2) and | | | | | | serum creatinine | | | | + + + + + + | BUN/Creatin | 12.2 | 12 - 20 | [facility] | | | ine Ratio | | | [facility] | | | | | | MEDICAL | | | | | | CENTER - | | | | | | LABORATORY | | + + + + + + | Na | 137 | 136 - 149 mEq/L | [facility] | | | | | | [facility] | | | | | | MEDICAL | | | | | | CENTER - | | | | | | LABORATORY | | + + + + + + | K | 4.2 | 3.5 - 5.1 mEq/l | [facility] | | | | | | [facility] | | | | | | MEDICAL | | | | | | CENTER - | | | | | | LABORATORY | | + + + + + + | Cl | 102 | 98 - 109 mEq/l | [facility] | | | | | | [facility] | | | | | | MEDICAL | | | | | | CENTER - | | | | | | LABORATORY | | + + + + + + | CO2 | 26 | 24 - 31 mEq/L | [facility] | | | | | | [facility] | | | | | | MEDICAL | | | | | | CENTER - | | | | | | LABORATORY | | + + + + + + | Anion Gap | 13.2 | 6.0 - 17.0 | [facility] | | | | | [...] + | [facility] | [address] | [place] | [phone] | | [facility] | | [address] | | | - LABORATORY | | | | + + + + + | [facility] | [address] | [place] | | | [facility] | | [address] | | | - LABORATORY | | | | + + + + + documented in this encounter Visit Diagnoses Not on filedocumented in this encounter
--- OUTSIDE RECORDS SUMMARY | ~2019-09-01 | XMS | Encounter Summary ---
Demographics + + + | Address | [address] | | | [place] [address] | + + + | Home Phone | | + + + | Preferred Language | Unknown | + + + | Marital Status | | + + + | Catholic Affiliation | Unknown | + + + | Race | Unknown | + + + | Ethnic Group | Unknown | + + + Author + + + | Author | [facility] | | | and [place] | + + + | Organization | [facility] | | | and [place] | + + + | Address | Unknown | + + + | Phone | Unavailable | + + + Support + + + + + | Name | Relationship | Address | Phone | + + + + + | Alma Gramajo | ECON | [address] | | | | | [place] [address] | | + + + + + Care Team Providers + +------+ + | Care Court Stenographer Name | Role | Phone | + [...] | | | | | | | [place] | | | | | | | [...] + + + + | 02/12/ | Anesthesia | [facility] | Mason Vega | | | 2017 | Event | [facility] | MD Negrito [address] | | | | | [address] | [address] [place] | | | | | [place] | [place] [address] | | | | | [address] | [phone] | | | | | [phone] | | | | | | | Luis Felipe Hewitt MD | | | | | | [address] | | | | | | [place] | | | | | | [address] | | | | | | | | +--------+ + + + + Anesthesia Record + + + + + | Procedure Name | Responsible | Anesthesia Start | Anesthesia Stop Time | | | Anesthesiologist | Time | | + + + + + | Left Ureteroscopy, | Mason Barker | 02/12/1831 | 02/12/18 0856 | | Laser Lithotripsy | MD Juhi | | | | and Stent (Left | | | | | Ureter) | | | | + + + + + +----+---+ + + | Da | T | Event | Comment | | te | i | | | | | m | | | | | e | | | +----+---+ + + | 06 | 0 | Antibiotic | | | /1 | 6 | Given | | | 4/ | 4 | | | | 20 | 6 | | | | 18 | | | | +----+---+ + + | | 0 | | | | | 7 | | | | | 1 | | | | | 8 | | | +----+---+ + + | | 0 | An Checkout | Pre-use anesthesia machine/equipment checkout. | | | 7 | | | | | 1 | | | | | 9 | | | +----+---+ + + | | 0 | An Start | Reassessment prior to anesthesia induction/procedure. | | | 7 | | | | | 3 | | | | | 1 | | | +----+---+ + + | | 0 | Preoxygenat | | | | 7 | ed | | | | 3 | | | | | 6 | | | +----+---+ + + | | 0 | An | | | | 7 | Induction | | | | 3 | | | | | 7 | | | +----+---+ + + | | 0 | An | | | | 7 | Intubation | | | | 3 | | | | | 9 | | | +----+---+ + + | | 0 | [place] | | | | 7 | 43-degrees | | | | 4 | | | | | 3 | | | +----+---+ + + | | 0 | Pre-Procedu | | | | 7 | ral Timeout | | | | 4 | Completed | | | | 7 | | | +----+---+ + + | | 0 | First | | | | 7 | Inc/Proc St | | | | 4 | | | | | 9 | | | +----+---+ + + | | 0 | [place] off | | | | 8 | | | | | 5 | | | | | 0 | | | +----+---+ + + | | 0 | Breathing | | | | 8 | Spontaneous | | | | 5 | ly | | | | 0 | | | +----+---+ + + | | 0 | an stop | | | | 8 | data | | | | 5 | | | | | 0 | | | +----+---+ + + | | 0 | Extubated | | | | 8 | Awake | | | | 5 | | | | | 4 | | | +----+---+ + + | | 0 | Moving | | | | 8 | Purposefull | | | | 5 | y | | | | 4 | | | +----+---+ + + | | 0 | An Stop | Patient handed off to recovery nurse. | | | 5 | | | | | 6 | | | +----+---+ + + +------+ | Meds | +------+ + +---------+ | Name | Total | + +---------+ | fentaNYL | 200 mcg | + +---------+ | lidocaine 2% | 100 mg | + +---------+ | propofol (DIPRIVAN) injection | 220 mg | | (bolus) (20 mL) | | + +---------+ | dexamethasone | 10 mg | + +---------+ | dexmedetomidine (Bolus) | 15 mcg | + +---------+ | lactated ringers (LR) infusion | 600 mL | + +---------+ + + | Name | + + | N2O Flow Rate (L/Min) | + + | O2 Flow Rate (L/Min) | + + | Insp O2 | + + | Exp SEV | + + | Air Flow Rate (L/Min) | + + + + | No blood administrations on file. | + + +--------+ + + + | Type | Details | Placement | Removal | +--------+ + + + | Periph | 02/12/18; 0654; Left; Hand; | 02/12/18 0654 by | 02/12/18 1430 by | | eral | [id number] catheter system; | Verito Rodriguez RN | Greta Kirby RN | | IV | 20 gauge, 1 1/2 in length; | | | | | distraction, intradermal | | | | | injection, tolerated well; | | | | | catheter/device intact, removed | | | | | per policy/procedure, site care | | | | | per policy/procedure, no longer | | | | | indicated; short term use; | | | | | 02/12/18; 1430 | | | +--------+ + + + | Airway | Placement Date: 02/12/18; | 02/12/18 0746 by | 02/12/18 0854 by | | | Placement Time: 07 (created via | Mason Barker | Mason Barker | | | procedure documentation); | MD Juhi | MD Juhi | | | Attempts: 1; Airway Type: | | | | | laryngeal mask; Size: 5; Trauma: | | | | | none; Placement Check: exhaled | | | | | CO2 detection device, bilateral | | | | | chest rise, breath sounds equal | | | | | bilaterally; Removal Date: | | | | | 02/12/18; Removal Time: 853; | | | | | Additional Comments: Atraumatic | | | | | LMA placement with quality seat | | | | | and seal. | | | +--------+ + + + | Read | 02/12/18; 0805; penis; healing | 02/12/18 0805 by | 02/12/18 1446 by | | only - | within expectations; 02/12/18; | Smiley Barrera RN | Greta Kirby RN | | | 1446 | | | | Incisi | | | | | on | | | | +--------+ + + + documented in this encounter Social History + +-------+ +--------+------+ | Tobacco [...] | + +--------+ + + + | ANE AIRWAY NOTE | Routin | 02/12/2018 | | Results for this | | | e | 7:45 AM | | procedure are in the | | | | PDT | | results section. | + +--------+ + + + documented in this encounter Results Anesthesia Airway Note (02/12/2018 7:45 AM PDT) + + + | Narrative | Performed At | + + + | Mason Vega MD 02/12/2018 7:46 Anesthesia Airway | | | Placement Preprocedure check: patient identified, oxygen, airway | | | assessed, suction, airway equipment checked and patient reassessment | | | prior to induction Attempts: 1 Airway type: laryngeal mask Size: 5 | | | Cuffed: cuffed Route, reference point: center of mouth Tube | | | secured with: adhesive tape Trauma: none Tube placement | | | verification: bilateral chest rise, equal bilateral breath sounds | | | and carbon dioxide detection Performing provider: MASON VEGA | | | NEGRITO Comments: Atraumatic LMA placement with quality seat and | | | seal. Electronically Signed by: Mason Vega MD | | | ESig date/time: 02/12/2018 7:45 | | | | | + + + + + | Procedure Note | + + | Mason Vega MD - 02/12/2018 7:45 AM PDT Anesthesia Airway | | PlacementPreprocedure check: patient identified, oxygen, airway assessed, suction, | | airway equipment checked and patient reassessment prior to inductionAttempts: 1Airway | | type: laryngeal maskSize: 5Cuffed: cuffedRoute, reference point: center of mouthTube | | secured with: adhesive tapeTrauma: noneTube placement verification: bilateral chest | | rise, equal bilateral breath sounds and carbon dioxide detectionPerforming provider: | | MASON VEGAComments: Atraumatic LMA placement with quality seat and | | seal.Electronically Signed by: Mason Vega MD ESig | | date/time: 02/12/2018 7:45 | |Trauma: none | |Tube placement verification: bilateral chest rise, equal bilateral breath sounds and carbon dioxide detection | |Performing provider: MASON VEGA | | | |Comments: Atraumatic LMA placement with quality seat and seal. | | | | | |Electronically Signed by: MD Santo Argueta date/time: 7:45 | | | + + documented in this encounter Visit Diagnoses Not on filedocumented in this encounter Administered Medications + +--------+ +-------+------+------+ | Medication Order | MAR | Action | Dose | Rate | Site | | | Action | Date | | | | + +--------+ +-------+------+------+ | dexamethasone (PF) 10 mg/mL | Given | 02/13/20 | 10 mg | | | | injection Intravenous, PRN, | | 18 7:37 | | | | | Starting Sayra 02/12/18 at 0737, | | AM PDT | | | | | Anesthesia Intra-op | | | | | | + +--------+ +-------+------+------+ +---+---+ | | | +---+---+ + +-------+ +--------+---+---+ | dexmedetomidine (PRECEDEX) in | Given | 02/13/20 | 15 mcg | | | | sodium chloride bolus infusion | | 18 7:37 | | | | | Intravenous, PRN, Starting Sayra | | AM PDT | | | | | 02/12/18 at 0737, Anesthesia | | | | | | | Intra-op | | | | | | + +-------+ +--------+---+---+ +---+---+ | | | +---+---+ + +-------+ +--------+---+---+ | fentaNYL (PF) injection | Given | 02/13/20 | 25 mcg | | | | Intravenous, PRN, Pain, Starting | | 18 8:39 | | | | | Sayra 02/12/18 at 0744, Anesthesia | | AM PDT | | | | | Intra-op | | | | | | + +-------+ +--------+---+---+ +-------+ +--------+---+---+ | Given | 02/13/20 | 25 mcg | | | | | 18 8:33 | | | | | | AM PDT | | | | +-------+ +--------+---+---+ | Given | 02/13/20 | 50 mcg | | | | | 18 8:02 | | | | | | AM PDT | | | | +-------+ +--------+---+---+ +---+---+ | | | +---+---+ + +-------+ +--------+---+---+ | lidocaine (PF) 2% injection | Given | 02/13/20 | 100 mg | | | | Intravenous, PRN, Starting Sayra | | 18 7:37 | | | | | 02/12/18 at 0737, Anesthesia | | AM PDT | | | | | Intra-op | | | | | | + +-------+ +--------+---+---+ +---+---+ | | | +---+---+ + +-------+ +--------+---+---+ | propofol (DIPRIVAN) injection | Given | 02/13/20 | 220 mg | | | | Intravenous, PRN, Starting Sayra | | 18 7:37 | | | | | 02/12/18 at 0737, Anesthesia | | AM PDT | | | | | Intra-op | | | | | | + +-------+ +--------+---+---+ +---+---+ | | | +---+---+ documented in this encounter"
--- OUTSIDE RECORDS SUMMARY | ~2019-09-01 | XMS | Encounter Summary ---
Demographics + + + | Address | [address] | | | [place] [address] | + + + | Home Phone | | + + + | Preferred Language | Unknown | + + + | Marital Status | | + + + | Orthodox Affiliation | Unknown | + + + | Race | Unknown | + + + | Ethnic Group | Unknown | + + + Author + + + | Author | [facility] | | | and [place] | + + + | Organization | [facility] | | | and [place] | + + + | Address | Unknown | + + + | Phone | Unavailable | + + + Support + + + + + | Name | Relationship | Address | Phone | + + + + + | Alma Gramajo | ECON | [address] | | | | | [place] [address] | | + + + + + Care Team Providers + +------+ + | Care Electronics Detail Draftsperson Name | Role | Phone | + +------+ + | Priyanka Sal PA-C | PCP | | + +------+ + Reason for Visit + + + | Reason | Comments | + + + | Medication Problem | | + + + Encounter Details +--------+ + + + + | Date | Type | Department | Care Team | Description | +--------+ + + + + | 02/12/ | Telephone | [facility] | [place] | Medication Problem | | 2018 | | [address] | MD Demond [address] | | | | | [address] | [place], [place] | | | | | [address] | [address] | | | | | [phone] | | | +--------+ + + + [...]
--- OUTSIDE RECORDS SUMMARY | ~2019-09-01 | XMS | Encounter Summary ---
Demographics + + + | Address | [address] | | | [place] [address] | + + + | Home Phone | | + + + | Preferred Language | Unknown | + + + | Marital Status | | + + + | Temple Affiliation | Unknown | + + + | Race | Unknown | + + + | Ethnic Group | Unknown | + + + Author + + + | Author | [facility] | | | and [place] | + + + | Organization | [facility] | | | and [place] | + + + | Address | Unknown | + + + | Phone | Unavailable | + + + Support + + + + + | Name | Relationship | Address | Phone | + + + + + | Alma Gramajo | ECON | [address] | | | | | [place] [address] | | + + + + + Care Team Providers + +------+ + | Care Planned Giving Officer Name | Role | Phone | + +------+ + | Priyanka Sal PA-C | PCP | | + +------+ + Reason for Visit + + + | Reason | Comments | + + + | Back Pain | Bilateral leg symptoms | + + + Evaluate & Treat (Routine) +--------+ + + + + + | Status | Reason | Specialty | Diagnoses / | Referred By | Referred To | | | | | Procedures | Contact | Contact | +--------+ + + + + + | Closed | Specialty | Physical | Diagnoses | Scott, | Mai, | | | Services | Medicine and [...] | | Spinal | [place], | [address] Phone: | | | | | stenosis of | [place] [address] | [phone] | | | | | lumbar | Phone: | Fax: | | | | | region, | [phone] | [phone] | | | | | unspecified | Fax: | | | | | | whether | [phone] | | | | | | neurogenic [...] Description | +--------+---------+ + + + | 04/21/ | Office | [facility] | Cici, | H/O spinal cord | | 2018 | Visit | PHYSIATRY [address] | MIKE [address] | compression (Primary | | | | [place], | [address], | Dx); Spinal | | | | [place] [address] | [place] [address] | stenosis of lumbar | | | | [phone] | [phone] | region with | | | | | | neurogenic | | | | | | claudication; Lumbar | | | | | | radiculopathy; | | | | | [...] + + + | Blood Pressure | 104/63 | 04/21/2018 11:13 AM | | | | | PDT | | + + + + + | Pulse | 61 | 04/21/2018 11:13 AM | | | | | PDT [...] Weight | 136.1 kg (300 lb) | 04/21/2018 11:13 AM | | | | | PDT | | + + + + + | Height | 188 cm (6' 2") | 04/21/2018 11:13 AM | | | | | PDT | | + + + + + | Body Mass Index | 38.52 | 04/21/2018 11:13 AM | | | | | PDT [...] of this encounter Patient Instructions Patient Instructions Gissell Bolanos PA-C - 04/21/2018 11:20 AM PDT1) Lumbar epidural injection with Dr. Oneill Spinal Stenosis: Stenosis refers to the narrowing of the spinal cord. This most often occurs with age and generative changes of the spine. Narrowing of the spinal cord causes compression and inflam mation of nerves in the lower back and can cause numbness, pain, and weakness in the back, b uttocks and legs. You may notice you have more pain with standing and walking. It feels be tter to walk more bent over at the waist, while pushing a grocery cart or walker. You get r elief with sitting down. Treatment includes pain medicine, gabapentin, transforaminal epidu ral steroid injections to help reduce swelling, physical therapy and surgery. Steroids are a very strong anti-inflammatory, this helps reduce pain by reducing swelling. Complications of steroids are bleeding, infection, and an increase of blood sugars if you are diabetic. termite control representative risk can lead to osteoporosis which is why we limited the number of injections to 3 times per year. Epidural injections target the spinal stenosis by putting the steroid around the nerves that come out of the spine with hopes the steroid gets into t he region of the stenosis. The procedure is about 20 minutes long. You will lie on your chente k while x-rays are taken. Once the region is marked, it is numbed and then injected with st eroids. Follow-up at the hospital thirty minutes before your scheduled procedure to allow for time to check in. You may eat and drink as usual on the day of the procedure. If you are scheduled for an epidural injection do not take any blood thinning medications f or at least 5-7 days prior to your procedure unless you have been instructed by another phys ician not to discontinue blood thinning medications. If you are having a procedure other than an epidural injection (i.e. facet injection, media l branch block, SI joint injection or other joint injection) it is not absolutely necessary to discontinue blood thinning medications but doing so will decrease the risk of bruising or bleeding. If you have had a prior stroke, DVT or PE or if you are taking blood thinning medication be cause you have atrial fibrillation, a prosthetic cardiac valve replacement or heart stenting do not stop taking your blood thinning medications unless you have permission from your car diologist or primary care provider. All other medications should be taken as usual on the day of the procedure. Common blood thinning medications include: Aspirin (a baby aspirin is o.k.) Ibuprofen (Advil or Motrin) Naproxen (Aleve) Nabumetone (Relafen) Clopidogrel (Plavix) Dipyridamole/ASA (Aggrenox) Warfarin (Coumadin) Dabigatran (Pradaxa) Rivaroxaban (Xarelto) There are many others. If you have questions about your medications and whether or not you should stop any medications please contact our office. If you are having an epidural injection or if you take any medication for relaxation/sedati on on the day of the procedure you must provide a local hazmat driver to take you home. For all procedur es it is recommended that someone else drive you home. documented in this encounter Progress Notes Gissell Bolanos PA-C - 04/21/2018 11:20 AM PDTFormatting of this note might be differe nt from the original. Gissell Bolanos PA-C [address] [facility], [address] [place] [address] FAX: PHYSICAL MEDICINE AND REHABILITATION H&P CHIEF COMPLAINT: Chief Complaint Patient presents with Back Pain Bilateral leg symptoms HISTORY OF PRESENT ILLNESS: The patient is a 43 y.o. male being seen today for complaints of low back pain. The patient has an extensive back surgical history. He has had T10-T11 l umbar fusion in 2015 due to spinal compression/herniated disc. He has ongoing right leg wea kness ever since the surgery. In 2016 he underwent an L3-L4 fusion to relieve back pain due to spinal stenosis however he reports his pain continues. The patient reports majority of his pain is with standing and walking, nothing at this time relieves the pain. He describes the pain as aching along with numbness and tingling. He reports his pain as a moderate to severe level, daily and continuous. The patient has tried physical therapy, surgery, use of NSAIDs, muscle relaxers and previous steroid injections. In 2012 he had bilateral L3-L4 TF BASHIR with Dr. Oneill he reports good relief with this injection. He does reports left leg pain, and right leg weakness. The patient does describe numbness of the left leg and right leg. He does not have bowel and bladder dysfunction. He does n ot have saddle anesthesia. Patient's medications, allergies, past medical, surgical, social and family histories were reviewed and updated as appropriate. 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 Monitoring for anticoagulant use 06/30/2013 Neurogenic bladder Neurogenic bowel Obesity Rectal abnormality - rectal wall thickening on CT scan 03/01/2018 Right shoulder strain Spinal stenosis, lumbar Vitamin D deficiency PAST SURGICAL HISTORY: Past Surgical History: Procedure Laterality Date LUMBAR FUSION LUMBAR SPINE SURGERY N/A 02/05/2017 Procedure: L3-4 Extreme Lateral Interbody Fusion; Surgeon: Emil Garcia DO; Location: [facility] MAIN OR LUMBAR SPINE SURGERY 2013 x2 THORACIC FUSION 2014 URETEROSCOPY Left 02/12/2018 Procedure: Left Ureteroscopy, Laser Lithotripsy and Stent; Surgeon: Satinder Elizondo MD; Location: [facility] MAIN OR CURRENT MEDICATIONS: Current Outpatient Prescriptions Medication Sig [...] until instructed otherwise. 90 caps ule 2 ibuprofen (ADVIL,MOTRIN) 600 MG tablet Take 600 mg by mouth every 6 hours as needed for Pain. lovastatin (MEVACOR) 20 mg tablet Take 40 mg by mouth nightly. No current facility-administered medications for this visit. ALLERGIES: Allergies Allergen Reactions Diazepam Anaphylaxis and Hives Fenofibrate Other (See Comments) Reaction not specified in outside medical records SOCIAL HISTORY: The patient reports that he has never smoked. His smokeless tobacco use includes Chew. He reports that he does not drink alcohol or use drugs. FAMILY HISTORY: Family History Problem Relation Age of Onset Heart disease Mother ASHD GERD Mother Cancer Paternal Grandmother Other (see comment) Paternal Grandfather Heart problems Prostate cancer Neg Hx REVIEW OF SYSTEMS: GENERALLY: No fever, chills, no night sweats, no weight gain, no weight loss, no anemia, no fatigue. EYES: No eye problems, no impaired sight, no eye glasses/contacts, no eye injury, no doubl e vision, no transient blindness. EARS, NOSE, THROAT and MOUTH: No change in sense taste/smell, no hearing difficulty, no ri nging in ears, no drainage from ears, no ear injury, no dizziness, no voice change, no diffi culty swallowing, no snoring, no sleep apnea/CPAP, no sinus trouble, no dental work. NEUROMUSCULAR: No numbness/pain of arms, + numbness/pain of legs, + awake with numbness/pa in, + weakness, + muscle aching, + coordination difficulty, + change in walk, no head injury , no neck injury, + back injury, no pain in neck, no pain in back, no stroke, no fainting sp ells, no loss of consciousness, + tremor/shaking, no seizures, + headaches, + migraines, no memory loss, no speech difficulty, no confusion, no numbness of face. PSYCHIATRIC: No depression, + difficulty sleeping, no anxiety, no bipolar disorder. CARDIOVASCULAR/PULMONARY: No heart attack, no heart murmur, no fluttering heart, no shortn ess of breath, no cough, no Tuberculosis, no chest pain, no swelling ankles, no bloody cough ing, no asthma, no COPD/emphysema. GASTROINTESTINAL: No bowel disease, no nausea/vomiting, no rectal bleeding/hemorroids, + c onstipation, no fecal/stool incontinence, no liver/gallbladder disease, + abdominal pain. KIDNEY DISEASE: No frequent urination, no painful/difficult with urination, no urinary inco ntinence, no bladder problems, + impotence, no irregular period, no vaginal discharge. ENDOCRINE: No diabetes, no thyroid disease, no osteoporosis/osteopenia, no drainage from br easts. INTEGUMENTARY/SKIN: No lump in breasts, no skin disease or skin changes, no rash/itch. HEMATOLOGIC: No enlarged lymph nodes, no ease or unusual bleeding, no cancer. RHEUMATOLOGIC: No joint pain/arthritis, no Rheumatoid Arthritis PHYSICAL EXAMINATION: Vitals: 04/21/18 1113 BP: 104/63 Pulse: 61 PainSc: 5 PainLoc: Back Body mass index is 38.52 kg/m. GENERAL: The patient is well developed and well nourished. He does not appear uncomfortabl e when seated. HEENT: HEAD/FACE: EYES: EARS: NASOPHARNYX: OROPHARNYX: Normocephalic and atraumatic. There are no areas of recent trauma. Normal sclerae without icterus. No drainage or tenderness. Clear without drainage. Clear without erythema. SKIN Limited skin exam shows no significant rashes or lesions. There are scars in the lumb ar region. CHEST: The patient is in no acute respiratory distress with unlabored respirations. HEART: There is not lower extremity edema. ABDOMEN: The patient is overweight. NEUROLOGIC: The patient is awake, alert, and oriented to time, place, person. He follows simple and complex commands. His speech is fluent. He comprehends speech well. He has no apparent deficits with short or termite control representative memory. He has appropriate fund of knowledge Cranial nerves 2-12 appear grossly intact. MUSCULOSKELETAL There is no tenderness in the midline of the cervical or thoracic spine. T here is no major palpable deformity of the spine. Straight leg raise and slump-sit are negative however he is unable to straighten the right leg due to prior spinal cord compression. Javier's maneuver and impingement testing were n egative for any groin pain. There was no tenderness to palpation over the greater trochant ers or sacral sulci. The patient localized the majority of the pain to the L3/L4 region. L umbar facet loading was negative. Strength testing showed 5/5 strength throughout the lower extremities with complete weakness on the right 2/5 hip flexors, knee extensions and dorsif lexion of ankle. The patient was unable to heel and toe walk due to strength. There was no redness, effusion, warmth or joint line tenderness in the knees or ankles. RADIOGRAPHIC REVIEW: The patient's imaging was reviewed in detail with the patient today during the visit. The MRI from 12/23/2017 shows what appears to be moderate spinal stenosis at L3/L4, L4/L5. He do es appear to have foraminal stenosis at L3/L4 also. ASSESSMENT: 1. H/O spinal cord compression 2. Spinal stenosis of lumbar region with neurogenic claudication 3. Lumbar radiculopathy 4. History of lumbar fusion PLAN: 1. The patient has had significant conservative care including medications (NSAIDS and narc otics), PT (multiple sessions over the years) and manager progressive care. Unfortunately he contin ues to have significant discomfort. It appears to me that the pain is primarily coming from the L3/L4 level. I did feel that he would be a good candidate for interventional procedure s and I offered bilateral L3/L4 TFESI as this did help in the past. 2. The patient has ongoing right leg weakness due to the first thoracic surgery at T10-T11 for spinal cord compression, this has not improved since. The patient mostly walks where h e has to use his abdominal muscles to flex the hip, I considered an AFO for the right ankle however I don't think that this would help his gait. 3. Medications have been reviewed at today's visit with no changes made at this time. 4. Follow up after injection. ELECTRONICALLY SIGNED BY: Gissell Bolanos PA-C, 04/21/2018 CC: Jonelle documented in t his encounter Plan of Treatment Not on filedocumented as of this encounter Results [place] BASHIR Lumbar Transforaminal [...] + | Diagnosis | + + | H/O spinal cord compression - Primary Personal history of other disorders of nervous | | system and sense organs | + + | Spinal stenosis of lumbar region with neurogenic claudication Spinal stenosis, lumbar | | region, with neurogenic claudication | + + | Lumbar radiculopathy Thoracic or lumbosacral neuritis or radiculitis, unspecified | + + | History of lumbar fusion | + + documented in this encounter
--- OUTSIDE RECORDS SUMMARY | ~2019-09-01 | XMS | Encounter Summary ---
Demographics + + + | Address | [address] | | | [place] [address] | + + + | Home Phone | | + + + | Preferred Language | Unknown | + + + | Marital Status | | + + + | Moravian Affiliation | Unknown | + + + | Race | Unknown | + + + | Ethnic Group | Unknown | + + + Author + + + | Author | [facility] | | | and [place] | + + + | Organization | [facility] | | | and [place] | + + + | Address | Unknown | + + + | Phone | Unavailable | + + + Support + + + + + | Name | Relationship | Address | Phone | + + + + + | Alma Gramajo | ECON | [address] | | | | | [place] [address] | | + + + + + Care Team Providers + +------+ + | Care Metal Flooring Installer Name | Role | Phone | + +------+ + | Priyanka Sal PA-C | PCP | | + +------+ + Reason for Visit +--------+ + | Reason | Comments | +--------+ + | Cough | Persistent cough, sore throat, and head ache 04/10, duration one | | | week. Symptoms worsening over week, and spreading through | | | family. | +--------+ + Encounter Details +--------+ + + + + | Date | Type | Department | Care Team | Description | +--------+ + + + + | 02/10/ | Emergency | [facility] | Chace Pisano, | Acute bronchitis, | | 2016 | | [facility] | [place] [address] [address] | unspecified organism | | | | [address] | [place] | (Primary Dx) | | | | [place], [place] | [address] | | | | | [address] | | | | | | [phone] | | | +--------+ + + + [...] + + + | Blood Pressure | 136/80 | 02/11/2016 1:46 PM | | | | | PDT | | + + + + + | Pulse | 88 | 02/11/2016 1:46 PM | | | | | PDT | | + + + + + | Temperature | 37.6 C (99.6 F) | 02/11/2016 1:46 PM | | | | | PDT | | + + + + + | Respiratory Rate | 18 | 02/11/2016 1:46 PM | | | | | PDT | | + + + + + | Oxygen Saturation | 94% | 02/11/2016 1:46 PM | | | | | PDT | | + + + + + | Inhaled Oxygen | - | - | | | Concentration | | | | + + + + + | Weight | 133.8 kg (295 lb) | 02/11/2016 1:46 PM | | | | | PDT | | + + + + + | Height | 188 cm (6' 2.02") | 02/11/2016 1:46 PM | | | | | PDT | | + + + + + | Body Mass Index | 37.86 | 02/11/2016 1:46 PM | | | | | PDT | | + + + + + documented in this encounter Discharge Instructions Instructions Chace Pisano MD - 02/11/2016Antibiotic and cough medication as prescribed Tylenol, ibuprofen, rest, fluids. Chloraseptic or other throat lozenges. Recheck in a week if not improving, sooner if worse documented in this encounter Medications at Time [...] + | XR CHEST 2 VIEWS | STAT | 02/11/2016 | | Results for this | | | | 4:05 PM | | procedure are in the | | | | PDT | | results section. | + +--------+ + + + documented in this encounter Results XR Chest 2 VW (02/11/2016 4:05 PM PDT) + + | Specimen | + + | | + + + + + | Narrative | Performed At | + + + | EXAM: XR CHEST 2 VW dated 02/11/2016 3:50 PM HISTORY: Cough | [facility] | | Comparison: August 06, 2013. TECHNIQUE: Frontal and lateral views | | | of the chest. FINDINGS: The lungs are symmetrically aerated. | | | They are clear. Azygos lobe variant. There are no pleural | | | effusions. There is no pneumothorax. The cardiac and mediastinal | | | contours are not enlarged. Operative changes at the thoracolumbar | | | junction. IMPRESSION - No acute disease. Dictated and | | | Signed by: Aj Monahan MD Electronically signed: 02/12/2016 | | | 8:13 AM | | + + + + + | Procedure Note | + + | Raoul, Rad Results In - 02/12/2016 8:16 AM PDT EXAM: XR CHEST 2 VW dated 02/11/2016 | | 3:50 PMHISTORY: CoughComparison: August 06, 2013.TECHNIQUE: Frontal and lateral views | | of the chest.FINDINGS:The lungs are symmetrically aerated. They are clear. Azygos lobe | | variant. There are no pleural effusions. There is no pneumothorax. The cardiac | | andmediastinal contours are not enlarged. Operative changes at the | | thoracolumbarjunction. IMPRESSION -No acute disease. Dictated and Signed by: Aj Shah | | MD Hero Electronically signed: 02/12/2016 8:13 AM | | | |FINDINGS: | |The lungs are symmetrically aerated. They are clear. Azygos lobe variant. | |There are no pleural effusions. There is no pneumothorax. The cardiac and | |mediastinal contours are not enlarged. Operative changes at the thoracolumbar | |junction. | | | |IMPRESSION - | | | |No acute disease. | | | |Dictated and Signed by: Aj Monahan MD | | Electronically signed: 02/12/2016 8:13 AM | + + + +---------+ + + | Performing | Address | City/State/Zipcode | Phone Number | | Organization | | | | + +---------+ + + | [facility] | | | | + +---------+ + + documented in this encounter Visit Diagnoses + + | Diagnosis | + + | Acute bronchitis, unspecified organism - Primary | + + documented in this encounter
--- OUTSIDE RECORDS SUMMARY | ~2019-09-01 | XMS | Encounter Summary ---
Demographics + + + | Address | [address] | | | [place] [address] | + + + | Home Phone | | + + + | Preferred Language | Unknown | + + + | Marital Status | | + + + | Gnosticism Affiliation | Unknown | + + + | Race | Unknown | + + + | Ethnic Group | Unknown | + + + Author + + + | Author | [facility] | | | and [place] | + + + | Organization | [facility] | | | and [...] | | | | | [place] [address] | | + + + + + Care Team Providers + +------+ + | Care Retail Sales Associate Name | Role | Phone | + +------+ + | Priyanka Sal PA-C | PCP | | + +------+ + Reason for Visit + + + | Reason | Comments | + + + | Procedure | | + + + Encounter Details +--------+ + + + + | Date | Type | Department | Care Team | Description | +--------+ + + + + | 01/27/ | Telephone | [facility] [place] | Emil Garcia, | Procedure | | 2017 | | NEUROSURGERY [address] | DO [address] | | | | | [address] | [address] [place], [place] | | | | | [place], [place] | [address] | | | | | [address] | | | | | | [phone] | | | +--------+ + + + [...]
--- OUTSIDE RECORDS SUMMARY | ~2019-09-01 | XMS | Clinical Summary ---
Demographics + + + | Address | [address] | | | [place] [address] | + + + | Home Phone | | + + + | Preferred Language | Unknown | + + + | Marital Status | | + + + | Methodist Affiliation | Unknown | + + + | Race | Unknown | + + + | Ethnic Group | Unknown | + + + Author + + + | Author | [facility] | | | and [place] | + + + | Organization | [facility] | | | and [place] | + + + | Address | Unknown | + + + | Phone | Unavailable | + + + Support + + + + + | Name | Relationship | Address | Phone | + + + + + | Alma Gramajo | ECON | [address] | | | | | [place] [address] | | + + + + + Care Team Providers + +------+ + | Care Chief Human Resources Officer Name | Role | Phone | [...] N/A: | [employer] - | | | [id number] | | [id number] - | c | Spine | MEDT | | | 5050 / | | [id number]: Qty: 2 on | | Lumbar | | | | / | | 02/05/2017 by Emil Garcia | | | | | | | | DO Love at [facility] | | | | | | | | [facility] | | | | | | | + +--------+--------+ +--------+--------+--------+ | Graft Infuse Bone Kit Xxs - | Graft | N/A: | [facility] | | 01/29/ | [id number] | | [id number]: Qty: 1 on | | Spine | DANEK - DIV | | 2018 | 0 / | | 02/05/2017 by Emil Garcia | | Lumbar | [employer] | | | /[id number] | | DO Love at [facility] | | | - S[facility]K | | | [id number] | | [facility] | | | | | | | + +--------+--------+ +--------+--------+--------+ | Putty Jose Roberto 5c Dbm - | Graft | N/A: | [employer] - | | 10/15/ | [id number] | | [id number]: Qty: 1 | | Spine | MEDT | | 2020 | [id number] | | on 02/05/2017 by Radha | | Lumbar | | | | 3-052 | | Emil Aleman DO at [facility] | | | | | | / | | [facility] | | | | | | | + +--------+--------+ +--------+--------+--------+ | Putty Bone Dbm Grftn 2.5cc - | Graft | N/A: | [employer] - | | 10/24/ | [id number] | | [id number]: Qty: 1 | | Spine | MEDT | | 2020 | | | on 02/05/2017 by Radha, | | Lumbar | | | | /[id number] | | Emil Aleman DO at [facility] | | | | | | 1-102 | | [facility] | | | | | | / | + +--------+--------+ +--------+--------+--------+ | Mesh Parietex Progrip 12x8c | Mesh | Right: | COVIDIEN | | 03/31/ | [id number] | | Rt - [id number]: | | | -BENNETT 867 - | | 2 | 8GR / | | Qty: 1 on 08/12/2018 by | | Inguin | COVI | | | /[id number] | | Cris Gutierrez MD at | | al | | | | 71X | | [facility] | | | | | | | | [facility] | | | | | | | + +--------+--------+ +--------+--------+--------+ | Screw Slra Sextant 7.5x65 - | Screw | N/A: | [employer] - | | | [id number] | | [id number]: Qty: 3 on | | Spine | MEDT | | | [id number] | | 02/05/2017 by Emil Garcia | | Lumbar | | | | / / | | DO Love at [facility] | | | | | | | | [facility] | | | | | | | + +--------+--------+ +--------+--------+--------+ | Screw Solera Sextant 7.5x60 - | Screw | N/A: | [employer] - | | | [id number] | | [id number]: Qty: 1 | | Spine | MEDT | | | [id number] | | on 02/05/2017 by Radha, | | Lumbar | | | | / / | | Emil Aleman DO at [facility] | | | | | | | | [facility] | | | | | | | + +--------+--------+ +--------+--------+--------+ | Set Scrw Ns G5 Brk Off Ti | Screw | N/A: | [facility] | | | [id number] | | 4.75 - [id number]: | | Spine | DANEK - DIV | | | 0 / / | | Qty: 4 on 02/05/2017 by | | Lumbar | [facility] | | | | | Emil Garcia DO at [facility] | | | - [facility] | | | | | [facility] | | | | | | | | CENTER | | | | | | | + +--------+--------+ +--------+--------+--------+ | Stent Uret W/Pstnr Frm 6 | Stent | Left: | SYLVIA WARD | | | [id number] | | 22-32 - [id number]: | | Ureter | INCORPORATE | | | / | | Qty: 1 on 02/12/2018 by | | | D | | | /[id number] | | Satinder Elizondo MD at | | | | | | 37 | | [facility] | | | | | | | | [facility] | | | | | | | + +--------+--------+ +--------+--------+--------+ | SpacerImplanted: Qty: 1 on | | N/A: | [employer] | | 07/06/ | [id number] | | 02/05/2017 by Emil Garcia | | Spine | [employer] | | 2020 | 95 / | | DO Love at [facility] | | Lumbar | [employer] 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
--- OUTSIDE RECORDS SUMMARY | ~2019-09-01 | XMS | Encounter Summary ---
Demographics + + + | Address | [address] | | | [place] [address] | + + + | Home Phone | | + + + | Preferred Language | Unknown | + + + | Marital Status | | + + + | Christianity Affiliation | Unknown | + + + | Race | Unknown | + + + | Ethnic Group | Unknown | + + + Author + + + | Author | [facility] | | | and [place] | + + + | Organization | [facility] | | [...] | | | | | [place] [address] | | + + + + + Care Team Providers + +------+ + | Care Blanching Machine Operator Name | Role | Phone | + +------+ + | Hudson Nair | PCP | | | MD | | | + +------+ + Reason for Visit +--------+ + | Reason | Comments | +--------+ + | Other | Schedule urgent appointment | +--------+ + Encounter Details +--------+ + + + + | Date | Type | Department | Care Team | Description | +--------+ + + + + | 05/13/ | Telephone | [facility] | Emil Garcia, | Other (Schedule | | 2012 | | NEUROSURGERY [address] | DO [address] | urgent appointment) | | | | [address] | [address] [place], [place] | | | | | [place], [place] | [address] | | | | | [address] | | | | | | [phone] | | | +--------+ + + + [...]
--- OUTSIDE RECORDS SUMMARY | ~2019-09-01 | XMS | Encounter Summary ---
Demographics + + + | Address | [address] | | | [place] [address] | + + + | Home Phone | | + + + | Preferred Language | Unknown | + + + | Marital Status | | + + + | Confucianist Affiliation | Unknown | + + + | Race | Unknown | + + + | Ethnic Group | Unknown | + + + Author + + + | Author | [facility] | | | and [place] | + + + | Organization | [facility] | | | and [...] | | | | | [place] [address] | | + + + + + Care Team Providers + +------+ + | Care Data Management Engineer Name | Role | Phone | + +------+ + | Priyanka Sal PA-C | PCP | | + +------+ + Reason for Visit + + + | Reason | Comments | + + + | Pre-op Exam | surgery on 02/05/2017 | + + + Encounter Details +--------+---------+ + + + | Date | Type | Department | Care Team | Description | +--------+---------+ + + + | 01/15/ | Office | [facility] [place] | Berhane Chavez, | Lumbar spinal | | 2017 | Visit | NEUROSURGERY [address] | PA-C [address] | stenosis (Primary | | | | [address] | [address] [place] | Dx); Lumbar | | | | [place], [place] | [place] [address] | radicular pain; | | | | [phone] | [phone] | Right leg weakness; | | | | [phone] | | Osteoarthritis of | | | | | | spine with | | | | | | radiculopathy, | | | | | | lumbar region | +--------+---------+ + + + Social History [...] + + + | Blood Pressure | 137/80 | 01/15/2017 8:54 AM | | | | | PDT | | + + + + + | Pulse | 65 | 01/15/2017 8:54 AM | | | | | PDT [...] + + + + | Weight | 136.4 kg (300 lb | 01/15/2017 8:54 AM | | | | 11.2 oz) | PDT | | + + + + + | Height | 188 cm (6' 2") | 01/15/2017 8:54 AM | | | | | PDT | | + + + + + | Body Mass Index | 38.61 | 01/15/2017 8:54 AM | | | | | PDT | | + + + + + documented in this encounter Patient Instructions Patient Instructions Berhane Chavez PA - 01/15/2017 9:08 AM PDTPlease remember not to take any anti-inflammatories within 7 days of surgery. This includes ibuprofen, Motrin, Adv il, aspirin, naproxen, and Aleve. You may have a small glass of water on the morning of to take your normal morning medications. Otherwise, nothing to eat or drink after midn ight. If you have any change in your health status, please call and let us know. Lastly, If you have any questions, please feel free to give our office a call. Otherwise, we will see you on the morning of surgery. documented in this encounter Progress Notes Cris Conte RN - 01/15/2017 10:41 AM PDTPatient in office for pre op appointment. Brielle ent advised at this time to stop: Ibuprofen (7 days prior and 90 days after). Patient verbal ized understanding. All questions answered at this time. I Cris Conte RN witnessed the patient leaving the office with a LSO which was provided by a healthcare sales representative of [facility]. Cris Conte RN ontes, Nichole Jefferson Refrigerated Cargo Clerk - 01/15/2017 9:19 AM PDTREVIEW OF SYSTEMS GENERALLY: No fever, no night sweats, no anemia, no fatigue, no recent profound weight ch anges. EYES: No eye problems, no use of corrective lenses, no eye injury, no double vision, no bl indness. EARS, NOSE, AND THROAT: No changes in taste or smell, no hearing difficulty, no ringing in the ears, no ear drainage, no dizziness, no voice changes, + difficulty swallowing, no sign ificant snoring, no sleep apnea, no sinus problems, no major dental work. NEUROLOGICALLY: Please see the review of systems discussed above in the history of present illness. In addition, the patient has numbness and pain of legs, awake with numbness and p ain, weakness, muscle aching, coordination difficulty, change in walk, back injury, pain in back, headaches. PSYCHIATRIC: No depression, no sleep disorders, no anxiety, no bipolar disorder, no psycho tic episodes. CARDIOVASCULAR: No heart attacks, no heart murmur, no heart fluttering, no chest pain, + a nkle swelling. LUNG DISEASE: No shortness of breath, + cough, no tuberculosis, no bloody cough, no asthm a, no emphysema/COPD. GASTROINTESTINAL: No bowel disease, no nausea or vomiting, no rectal bleeding, + constipat ion, no stool incontinence, no liver disease, no gallbladder disease, no abdominal pain, no ulcers. KIDNEY DISEASE: No [...] RHEUMATOLOGIC: No joint arthritis, no rheumatoid arthritis. uchar asif, LAMIN Martinez - 01/15/2017 9:06 AM PDT LAMIN Lindsay [address], [address] [place] [address] FAX: NEUROSURGERY FOLLOW-UP CHIEF COMPLAINT: Chief Complaint Patient presents with Pre-op Exam surgery on 02/05/2017 HISTORY OF PRESENT ILLNESS: Zaheer presents to our clinic today for a pre op examinat ion. He is scheduled for a L3-L4 XLIF. The patient is a 41 y.o. male who presets in follow- up for his back and leg symptoms. This is following a injury he sustained at work. In 2014 when he was lifting a box at his job at the [employer]. While lifting this box and twisting he felt a pop in his back and felt sudden onset of severe pain and pain sh ooting down both legs.It took quite a while for him to get his MRI authorized and complete d.. He previously underwent emergent decompression and fusion T11-12. He has had right leg weak ness since his previous surgery and this continues. However he now complains of bilateral le g pain in addition to his right leg weakness. Pain continues to be vague but he thinks it is usually on his anterior and lateral thigh. He states he is able to stand and walk for about 10 yours a day at work but comes home with quite a bit of back and leg pain. At his last v isit it was predominantly his right leg that was bothering him. Since his last visit his lef t leg is now affected too. He has had no interval changes in the severity or character of his symptoms since his last visit. He denies any shortness of breath or chest pain. He denies any fever or chills.He has no open sores on his body and has not had any antibiotics recently. The PCP has seen urmila galo and they have cleared him for surgery. Since his last visit he underwent epidural steroid injections at L3-4. This significantly h elped his right leg pain and weakness, but the left persists. He presents today to discuss o ptions. 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 ibuprofen (ADVIL,MOTRIN) 600 MG tablet as needed. lovastatin (MEVACOR) 20 mg tablet Take 40 [...] Heart problems INTERIM PHYSICAL EXAMINATION: Blood pressure 137/80, pulse 65, height 1.88 m (6' 2"), weight 136.397 kg (300 lb 11.2 oz). Body mass index is 38.59 kg/(m^2). GENERAL: Zaheer Gramajo is in no [...] has no apparent deficits with short or terminal make up operator memory. CRANIAL NERVES: Fundoscopic Exam: The optic [...] Indicates pain limited MUSCLE/ MOVEMENT: RIGHT LEFT Hip Flexion 4 5 Hip Extension 4+ [...] leg REFLEXES: (2 OR 2+ IS NORMAL) GAIT: Gait is antalgic. PERIPHERAL NERVE/MISC: Tinel is negative at the wrists and elbows bilaterally. Phalen is negative. Straight leg raise is positive bilaterally. Javier's test of the hips is negative bilaterally. RADIOGRAPHIC REVIEW: The patient's imaging was reviewed in detail with the patient today during the visit. The M RI of the lumbar spine from 04/16/16 demonstrates postoperative changes T11-12. There is spon dylosis and moderate to severe central stenosis L3-4. Dynamic x-rays of the lumbar spine demonstrate no significant instability. ASSESSMENT: Encounter Diagnoses Name Primary? 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 Overall, the patient is doing fair. Although he has been able to do his job full-time symptoms have been progressively worsening and he is currently on light duty at work. He has spondylosis and stenosis L3-4. This is likely contributing to his back pain, leg pain, and leg weakness. Given that his epidural steroid injections at th at level improved the leg pain and weakness, this is likeyl the symptomatic segment. I had a lengthy discussion with the patient about his options for care including surgical a nd non-surgical options. At this time he would like to proceed with XLIF L3-4. We discussed the risks, alternatives, and benefits to surgical intervention with Mr. Gramajo in clinic. These risks included but were not limited to , stroke, heart attack, numbn ess, weakness, paralysis, failure of fusion, failure of hardware, subsidence, adjacent segme nt degeneration, cerebrospinal fluid leak, bleeding, infection, injury to surrounding tissue s and organs, injury from positioning, injury to the nerves, difficulty with breathing, diff iculty with swallowing, difficulty with voice change, and need for additional surgery. Surgical options were discussed and the technique to be employed was described in detail to him. All his questions were answered. We discussed that the goal of the surgery is to prevent progression of his disease, but it is not considered a cure. We also discussed that although some patients may obtain 100% sym ptom relief, it is realistic to anticipate that some symptoms will continue postoperatively despite a successful surgery. We also discussed that there is no guarantee that surgery will provide improvement in his c ondition, and indeed may even worsen the symptoms. We also discussed that in the course of the procedure the operative plan may be altered to include more, less, or different levels d epending upon findings in order to provide him with the best possible outcome. I am prescribing a brace before surgery to improve his stability now to support his weak mu scles and to reduce pain by restricting mobility. For multiple (more than 1 level) fusions, I am also prescribing a bone growth stimulator po stoperatively. This is to improve the probability and rate of fusion. He is scheduled to see his primary care provider for preoperative clearance and optimizatio n prior to presenting for surgery. ELECTRONICALLY SIGNED BY: LAMIN Lindsay, 01/15/2017 9:06 documented in this encounter Plan of Treatment Not on filedocumented as of this encounter Visit Diagnoses + + | Diagnosis | + + | Lumbar spinal stenosis - Primary Spinal stenosis, lumbar region, without neurogenic | | claudication | + + | Lumbar radicular pain Thoracic or lumbosacral neuritis or radiculitis, unspecified | + + | Right leg weakness Other musculoskeletal symptoms referable to limbs | + + | Osteoarthritis of spine with radiculopathy, lumbar region | + + documented in this encounter
--- OUTSIDE RECORDS SUMMARY | ~2019-09-01 | XMS | Encounter Summary ---
Demographics + + + | Address | [address] | | | [place] [address] | + + + | Home Phone | | + + + | Preferred Language | Unknown | + + + | Marital Status | | + + + | Alevism Affiliation | Unknown | + + + | Race | Unknown | + + + | Ethnic Group | Unknown | + + + Author + + + | Author | [facility] | | | and [place] | + + + | Organization | [facility] | | | and [place] | + + + | Address | Unknown | + + + | Phone | Unavailable | + + + Support + + + + + | Name | Relationship | Address | Phone | + + + + + | Alma Gramajo | ECON | [address] | | | | | [place] [address] | | + + + + + Care Team Providers + +------+ + | Care Treating Plant Pumper Name | Role | Phone | + [...] [facility] | | | | | Lumbar | Berhane Ramon | [address] | | | | | radiculopath | [address] | [place], | | | | | y Numbness | [address] | [place] | | | | | and tingling | [address] | [address] | | | | | of left leg | [place], | Phone: | | | | | Left leg | [place] [address] | [phone] | | | | | weakness | Phone: | Fax: | | | | | Procedures | [phone] | [phone] | | | | | MRI Lumbar | Fax: | | | | | | Spine wo | [phone] | | | | | | Contrast | | | | | | | MRI see | | | | | | | notes for | | | | | | | scheduling | | | +--------+--------+ + + + + Reason for Visit +---------+ + | Reason | Comments | +---------+ + | Post Op | | +---------+ + Encounter Details +--------+---------+ + + + | Date | Type | Department | Care Team | Description | +--------+---------+ + + + | 12/02/ | Office | [facility] | Berhane Chavez, | Lumbar radiculopathy | | 2018 | Visit | NEUROSURGERY [address] | PA-C [address] | (Primary Dx); | | | | [address] | [address] [place] | Numbness and | | | | [place], [place] | [place] [address] | tingling of left | | | | [address] | [phone] | leg; Left leg | | | | [phone] | | weakness | +--------+---------+ + + + Social History [...] + + + | Blood Pressure | 108/76 | 12/02/2017 2:40 PM | | | | | PDT | | + + + + + | Pulse | - | [...] + + + + | Weight | 138.5 kg (305 lb 5.4 | 12/02/2017 2:40 PM | | | | oz) | PDT | | + + + + + | Height | 185.4 cm (6' 1") | 12/02/2017 2:40 PM | | | | | PDT | | + + + + + | Body Mass Index | 40.28 | 12/02/2017 2:40 PM | | | | | PDT [...] encounter Patient Instructions Patient Instructions Kiesha Haque, Automation Operator - 12/02/2017 2:30 PM PDTIt was a pleasure to see you today. Here is what we discussed. We will order an MRI. We will start you on gabapentin 3 times a day today. In a couple weeks we can increase the dose if you are not experiencing any side effects. Please call and let us know how you are bella sinclair. P DT documented in this encounter Progress Notes Berhane Chavez PA - 12/02/2017 2:30 PM PDTFormatting of this note might be different f rom the original. LAMIN Lindsay [address] [facility], [address] [place], [place] [id number] FAX: NEUROSURGERY FOLLOW-UP CHIEF COMPLAINT: Chief Complaint Patient presents with Post Op HISTORY OF PRESENT ILLNESS: The patient is a 42 y.o. male that had a lumbar fusion for chente k and leg symptoms on 02/05/2017. He returns and overall is doing fair. The patient complain s of low back and left leg discomfort. He still notes some bilateral leg numbness that is w orse on the left. Prior to surgery he was experiencing left leg symptoms. After surgery his symptoms got much better. When he went back to work in June of 2017 his symptoms starte d to creep back in. 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 Typical ly he gets Friday, Friday, and Friday off. When he has days off it takes him about 2 days for the leg to recover. Slowly his leg symptoms start to creep back in throughout the week. Legs symptoms are constant and account for a majority of the pain. On the best day his legs are 3-4 on the pain scale. Worst amount of pain he experiences is a 10 at the end of the da y. Patient notes numbness and weakness in his left leg. Patient does not feel like his leg symptoms are getting worse they just continue in the same cycle. For a while after surgery he was experiencing sharp right hip pain. The patient has been walking as much as directed. He is not taking opiate pain medications or muscle relaxer's at this point. He is taking ibuprofen to control his pain daily. The p atyarelis has had no issues with his surgical site. Patient has taken gabapentin in the past bu t he has not taken it since the surgery. Last time he was on Gabapentin was January of 2017. CURRENT MEDICATIONS: Current Outpatient Prescriptions Medication Sig [...] uses smokeless tobacco. He reports that h e does not drink alcohol or use drugs. INTERIM PHYSICAL EXAMINATION: Blood pressure 108/76, height 1.854 m (6' 1"), weight (!) 138.5 kg (305 lb 5.4 oz). Body ma ss index is 40.28 kg/m. GENERAL: Zaheer Gramajo is in no acute distress with unlabored respirations. SPINE: The patient s incisions are healing well without drainage, significant erythema, o r discharge. EXTREMITIES: No lower extremity edema. NEUROLOGICAL EXAMINATION: MENTAL STATUS: The patient is awake, alert, and oriented. He follows simple and complex commands MOTOR EXAM: Motor strength is 5/5 left lower extremities.. This is improved when compared to the preoperative exam. SENSORY EXAM: The sensory examination is unchanged when compared to the preoperative exam. Mild paresthesia in lower extremities. NEUROLOGICAL EXAM: MENTAL STATUS: The patient is awake, alert, and oriented. He follows simple and complex commands. His speech is fluent, he comprehends speech well, and he repeats well. He has no apparent deficits with short or snf memory. CRANIAL NERVES: Fundoscopic Exam: The optic [...] Intrinsics 5 5 Ulnar Intrinsics 5 5 Trade Facilitator Strength 5 5 Hip Flexion 4- 5 Hip Extension 5 5 Knee Flexion 5 5 Knee Extension 4+ 5 Dorsiflexion 4+ 5 Extensor Hallicus Longus 5 5 Plantarflexion 5 5 SENSORY EXAM: Tingling sensation on left lateral calf. Tingling to left lateral thigh. Tingling to left anterior thigh. Sensory exam shows no diminished sensation to light touch or pain throughout the upper and lower extremities. REFLEXES: (2 OR 2+ IS NORMAL) REFLEX: RIGHT LEFT BICEPS 2+ 2+ BRACHIORADIALIS 2+ 2+ TRICEPS 2+ 2+ PATELLAR 2+ 2+ ACHILLES 2+ 1+ ROY'S ABSENT ABSENT PLANTAR DOWNGOING DOWNGOING GAIT: Gait is steady. PERIPHERAL NERVE/MISC: Tinel is negative at the wrists and elbows bilaterally. Phalen is negative. Straight leg raise is negative bilaterally. Javier's test of the hips is negative bilaterally. REVIEW OF SYSTEMS GENERALLY: No fever, no [...] muscle aching, coordination difficulty, change in walk, vann injury, tremor/shaking, headache. PSYCHIATRIC: No depression, no sleep disorders, [...] frequency, no painful or difficult urination, no incontinence, + impotence ENDOCRINE: No diabetes, no thyroid disease, no osteopenia or osteoporosis, no breast drain age. SKIN: No breast lumps, no skin changes, no rashes, no itches. HEMATOLOGIC/LYMPHATIC: No enlarged lymph nodes, no easy or unusual bleeding, no personal h istory of cancer. RHEUMATOLOGIC: + joint arthritis, no rheumatoid arthritis. RADIOGRAPHIC REVIEW: The patient s x-rays show stable instrumentation and alignment and were reviewed with the patient today. There have been no interval changes since the immediate postoperative films . Complete fusion has not yet occurred, but this is normal and would not be expected at thi s time. No MRI is available at today's visit ASSESSMENT: Encounter Diagnoses Name Primary? 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 Some of the preoperative symptoms are improved. Howver, it seems that patient had a setback and an increase in symptoms and he returned [employer] to work in June. His symptoms have not improved since then and arm significantly affec ting his quality of life preventing him from doing things that he needs to do and wants to d o, particularly on his days off. It is my recommendation at this time that we get an MRI of his lumbar spine so that I can identify whether or not there is any spinal stenosis or fora santi stenosis that may be causing his left leg symptoms. Treatment options would based off of findings. Patient will follow-up with me. I, LAMIN Lindsay, personally performed the services described in this documentation , as scribed by Kiesha Cruz in my presence, and it is both accurate and complete. LAMIN Lindsay 12/03/2017 ELECTRONICALLY SIGNED BY: LAMIN Lindsay, 12/03/2017 11:24 documented in this encounter Plan of Treatment Not on filedocumented as of this encounter Results MRI Lumbar Spine wo Contrast (12/23/2017 12:49 PM PDT) + + | Specimen | + + | | + + + + + | Narrative | Performed At | + + + | MRI LUMBAR SPINE WO CONTRAST 12/23/2017 12:19 PM HISTORY: left | [facility] | | leg pain, tingling, numbness, and weakness. COMPARISON: Multiple | | | priors PROTOCOL: Sagittal T2, sagittal T1, axial T2, axial T1, | | | sagittal STIR, coronal T2. FINDINGS: Posterior lumbar fixation | | | hardware is reidentified at T11-T12 and L3-L4 without evidence of | | | interval complication. Interbody spacers appear intact with evidence | | | of developing mature osseous fusion. Multilevel mild disc space | | | narrowing of the upper lumbar spine. Mild early disc desiccation at | | | L4-L5. Multilevel posterior disc bulges and developing posterior disc | | | marginal osteophytosis. No suspicious STIR abnormality identified. 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 Imaged spinal cord and cauda equina | | | demonstrate normal signal with no evidence for myelomalacia or mass | | | lesions. The conus medullaris terminates at level L1/L2, which is | | | normal. T12-L1: Posterior disc bulge/disc osteophyte complex | | | causes mild left neuroforaminal narrowing. Mild to moderate central | | | spinal stenosis with the thecal sac measuring 8.5 mm in midline AP | | | dimension. L1-2: Mild posterior disc bulge is identified. No | | | evidence of significant neuroforaminal narrowing. Mild central spinal | | | stenosis with the thecal sac measuring 8.5 mm midline AP dimension. | | | L2-3: Circumferential disc bulge and mild facet spondylosis are | | | seen causing moderate central spinal stenosis with the thecal sac | | | measuring 7.4 mm in midline AP dimension. There is moderate bilateral | | | neural foraminal narrowing at this level. L3-4: Broad-based | | | fused posterior disc osteophyte complex/protrusion and moderate | | | posterior element spondylosis causes severe left and moderate right | | | osseous neural foraminal narrowing and mass effect on the exiting | | | nerve roots. There is moderate to severe narrowing of the right | | | subarticular and lateral recess. Thecal sac is at least mildly | | | narrowed which is difficult to accurately evaluate . L4-5: Mild | | | broad-based posterior disc bulge/developing disc ossify complex and | | | mild to moderate facet spondylosis are seen causing moderately severe | | | right and moderate left osseous neuroforaminal narrowing. Thecal sac | | | is at least moderately narrowed measuring 7 mm in midline AP | | | dimension. L5-S1: Mild broad-based posterior disc osteophyte | | | complex and mild facet spondylosis is seen causing moderate bilateral | | | osseous neuroforaminal narrowing. Thecal sac is patent. Imaged | | | abdomen and pelvis demonstrate no acute findings. IMPRESSION - | | | Intact posterior spinal and interbody fusion changes at T11-T12 (T11 | | | component is not seen) and L3-L4. Similar congenital shortening | | | of the pedicles causing multilevel prominently mild to moderate | | | central spinal stenosis which is moderate to severe at L2-L3, similar | | | to mildly worsened since 2016. Multilevel disc bulges/disc | | | osteophyte complexes and facet spondylosis causes multilevel | | | neuroforaminal narrowing ranging from moderate to severe as detailed | | | above. Dictated and Signed by: Gavin Thomas MD | | | Electronically signed: 12/23/2017 1:02 PM | | + + + + + | Procedure Note | + + | Raoul, Rad Results In - 12/23/2017 1:05 PM PDT MRI LUMBAR SPINE WO CONTRAST 12/23/2017 | | 12:19 PM HISTORY: left leg pain, tingling, numbness, and weakness.COMPARISON: Multiple | | priorsPROTOCOL: Sagittal T2, sagittal T1, axial T2, axial T1, sagittal STIR, | | coronalT2.FINDINGS:Posterior lumbar fixation hardware is reidentified at T11-T12 and | | L3-L4 withoutevidence of interval complication. Interbody spacers appear intact with | | evidenceof developing mature osseous fusion. Multilevel mild disc space narrowing of | | theupper lumbar spine. Mild early disc desiccation at L4-L5. Multilevel posteriordisc | | bulges and developing posterior disc marginal osteophytosis. No suspiciousSTIR | | abnormality identified.Similar congenital shortening of the pedicles with multilevel | | central spinalstenosis throughout the entire lumbar spine which is predominately mild | | tomoderate with the exception of L2-L3 and L3-L4 at which point it is moderate.Imaged | | spinal cord and cauda equina demonstrate normal signal with no evidencefor myelomalacia | | or mass lesions. The conus medullaris terminates at levelL1/L2, which is normal.T12-L1: | | Posterior disc bulge/disc osteophyte complex causes mild leftneuroforaminal narrowing. | | Mild to moderate central spinal stenosis with thethecal sac measuring 8.5 mm in midline | | AP dimension.L1-2: Mild posterior disc bulge is identified. No evidence of | | significantneuroforaminal narrowing. Mild central spinal stenosis with the thecal | | sacmeasuring 8.5 mm midline AP dimension.L2-3: Circumferential disc bulge and mild facet | | spondylosis are seen causingmoderate central spinal stenosis with the thecal sac | | measuring 7.4 mm in midlineAP dimension. There is moderate bilateral neural foraminal | | narrowing at thislevel.L3-4: Broad-based fused posterior disc osteophyte | | complex/protrusion andmoderate posterior element spondylosis causes severe left and | | moderate rightosseous neural foraminal narrowing and mass effect on the exiting nerve | | roots.There is moderate to severe narrowing of the right subarticular and lateralrecess. | | Thecal sac is at least mildly narrowed which is difficult to accuratelyevaluate .L4-5: | | Mild broad-based posterior disc bulge/developing disc ossify complex andmild to moderate | | facet spondylosis are seen causing moderately severe right andmoderate left osseous | | neuroforaminal narrowing. Thecal sac is at leastmoderately narrowed measuring 7 mm in | | midline AP dimension. L5-S1: Mild broad-based posterior disc osteophyte complex and mild | | facetspondylosis is seen causing moderate bilateral osseous neuroforaminal | | narrowing.Thecal sac is patent.Imaged abdomen and pelvis demonstrate no acute | | findings.IMPRESSION -Intact posterior spinal and interbody fusion changes at T11-T12 | | (T11 componentis not seen) and L3-L4.Similar congenital shortening of the pedicles | | causing multilevel prominentlymild to moderate central spinal stenosis which is moderate | | to severe at L2-L3,similar to mildly worsened since 2016.Multilevel disc bulges/disc | | osteophyte complexes and facet spondylosis causesmultilevel neuroforaminal narrowing | | ranging from moderate to severe as detailedabove.Dictated and Signed by: Gavin Thomas | | Electronically signed: 12/23/2017 1:02 PM | |L3-4: Broad-based fused posterior disc osteophyte complex/protrusion and | |moderate posterior element spondylosis causes severe left and moderate right | |osseous neural foraminal narrowing and mass effect on the exiting nerve roots. | |There is moderate to severe narrowing of the right subarticular and lateral | |recess. Thecal sac is at least mildly narrowed which is difficult to accurately | |evaluate . | | | |L4-5: Mild broad-based posterior disc bulge/developing disc ossify complex and | |mild to moderate facet spondylosis are seen causing moderately severe right and | |moderate left osseous neuroforaminal narrowing. Thecal sac is at least | |moderately narrowed measuring 7 mm in midline AP dimension. | | | |L5-S1: Mild broad-based posterior disc osteophyte complex and mild facet | |spondylosis is seen causing moderate bilateral osseous neuroforaminal narrowing. | |Thecal sac is patent. | | | |Imaged abdomen and pelvis demonstrate no acute findings. | | | |IMPRESSION - | |Intact posterior spinal and interbody fusion changes at T11-T12 (T11 component | |is not seen) and L3-L4. 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 | | | |Multilevel disc bulges/disc osteophyte complexes and facet spondylosis causes | |multilevel neuroforaminal narrowing ranging from moderate to severe as detailed | |above. | | | |Dictated and Signed by: Gavin Thomas MD | | Electronically signed: 12/23/2017 1:02 PM | + + + +---------+ + + | Performing | Address | City/State/Zipcode | Phone Number | | Organization | | | | + +---------+ + + | [facility] | | | | + +---------+ + + documented in this encounter Visit Diagnoses + + | Diagnosis | + + | Lumbar radiculopathy - Primary Thoracic or lumbosacral neuritis or radiculitis, | | unspecified | + + | Numbness and tingling of left leg Disturbance of skin sensation | + + | Left leg weakness Other musculoskeletal symptoms referable to limbs | + + documented in this encounter
--- OUTSIDE RECORDS SUMMARY | ~2019-09-01 | XMS | Encounter Summary ---
Demographics + + + | Address | [address] | | | [place] [address] | + + + | Home Phone | | + + + | Preferred Language | Unknown | + + + | Marital Status | | + + + | Yarsanism Affiliation | Unknown | + + + | Race | Unknown | + + + | Ethnic Group | Unknown | + + + Author + + + | Author | [facility] | | | and [place] | + + + | Organization | [facility] | | | and [place] | + + + | Address | Unknown | + + + | Phone | Unavailable | + + + Support + + + + + | Name | Relationship | Address | Phone | + + + + + | Alma Gramajo | ECON | [address] | | | | | [place] [address] | | + + + + + Care Team Providers + +------+ + | Care Pharmaceutical Operator Name | Role | Phone | [...] | | | | | | | Osteoarthrit | | | | | | | is of spine | | | | | | | with | | | | | | | radiculopath | | | | | | | y, lumbar | | | | | | | region | | | | | | | (M47.26), | | | | | | | Lumbar | | | | | | | stenosis | | | | | | | (M48.06), | | | | | | | Lumbar | | | | | | | radicular | | | | | | | pain | | | | | | | (M54.16), | | | | | | | Chronic | | | | | | | midline low | | | | | | | back pain | | | | | | | with | | | | | | | bilateral | | | | | | | sciatica | | | | | | | (M54.41, | | | | | | | M54.42, | | | | | | | G89.29), | | | | | | | Right leg | | | | | | | weakness | | | | | | | (M62.81) | | | | | | | Procedures | | | | | | | ID | | | | | | | ARTHRODESIS | | | | | | | POSTERIOR/PO | | | | | | | STEROLATERAL | | | | | | | LUMBAR ID | | | | | | | LUMBAR SPINE | | | | | | | | | | | | | | FUSION,ANTER | | | | | | | APPRCH ID | | | | | | | INSJ BIOMCHN | | | | | | | DEV | | | | | | | INTERVERTEBR | | | | | | | AL DSC SPC | | | | | | | W/ARTHRD | | | | | | | POSTERIOR | | | | | | | NON-SEGMENTA | | | | | | | L | | | | | | | INSTRUMENTAT | | | | | | | ION L3-4 | | | | | | | Extreme | | | | | | | Lateral | | | | | | | Interbody | | | | | | | Fusion | | | +--------+--------+ + + + + Encounter Details +--------+ + + + + | Date | Type | Department | Care Team | Description | +--------+ + + + + | 02/05/ | Hospital | [facility] | Emil Garcia, | | | 2016 | Encounter | MED CTR XRAY [address] | DO [address] | | | | | Mónica Garvey | [address] [place], [place] | | | | | [place] [address] | [id number] | | | | | [phone] | | | +--------+ + + + [...] | + +--------+ + + + | SILVA SOTO STATS NO | Routin | 02/05/2017 | | Results for this | | CHARGE | e | 12:58 PM | | procedure are in the | | | | PDT | | results section. | + +--------+ + + + documented in this encounter Results SILVA Bauman Stats No Charge (02/05/2017 12:58 PM PDT) + + | Specimen | + + | | + + + + + | Narrative | Performed At | + + + | No Radiologist interpretation, please see Chart Review. | [facility] | + + + + +---------+ + + | Performing | Address | City/State/Zipcode | Phone Number | | Organization | | | | + +---------+ + + | [facility] | | | | + +---------+ + + documented in this encounter Visit Diagnoses Not on filedocumented in this encounter"
--- OUTSIDE RECORDS SUMMARY | ~2019-09-01 | XMS | Encounter Summary ---
Demographics + + + | Address | [address] | | | [place] [address] | + + + | Home Phone | | + + + | Preferred Language | Unknown | + + + | Marital Status | | + + + | Nondenominational Affiliation | Unknown | + + + | Race | Unknown | + + + | Ethnic Group | Unknown | + + + Author + + + | Author | [facility] | | | and [place] | + + + | Organization | [facility] | | | and [...] | | | | | [place] [address] | | + + + + + Care Team Providers + +------+ + | Care Hot Dip Plater Name | Role | Phone | + +------+ + | Priyanka Sal PA-C | PCP | | + +------+ + Reason for Visit + + + | Reason | Comments | + + + | Follow-up | ED visit for fall. Having left leg numbness | + + + Encounter Details +--------+---------+ + + + | Date | Type | Department | Care Team | Description | +--------+---------+ + + + | 03/26/ | Office | [facility] | Berhane Chavez, | Numbness in both | | 2017 | Visit | [address]UR[address]URGERY [address] | PA-C [address] | legs (Primary Dx); | | | | [address] | [address] [place] | S/P lumbar fusion | | | | [place] | [place] [address] | | | | | [address] | [phone] | | | | | [phone] | | | +--------+---------+ + + + [...] + + + | Blood Pressure | 143/86 | 03/26/2017 8:24 AM | | | | | PDT | | + + + + + | Pulse | 65 | 03/26/2017 8:24 AM | | | | | PDT [...] + + + + | Weight | 131.8 kg (290 lb 9.6 | 03/26/2017 8:24 AM | | | | oz) | PDT | | + + + + + | Height | 185.4 cm (6' 1") | 03/26/2017 8:24 AM | | | | | PDT | | + + + + + | Body Mass Index | 38.34 | 03/26/2017 8:24 AM | | | | | PDT [...] of this encounter Patient Instructions Patient Instructions Berhane Chavez PA - 03/26/2017 8:30 AM PDTI have written a Rx for steroids. If these do not help let me know and I will likely order a MRI of your lumbar spi ne. documented in this encounter Progress Notes Berhane Chavez PA - 03/26/2017 8:30 AM PDTFormatting of this note might be different f rom the original. LAMIN Lindsay [address] [facility], [address] [place] [address] FAX: NEUROSURGERY FOLLOW-UP CHIEF COMPLAINT: Chief Complaint Patient presents with Follow-up ED visit for fall. Having left leg numbness HISTORY OF PRESENT ILLNESS: The patient is a 41 y.o. male that had a lumbar fusion for chente k and left leg pain around 7 weeks. He returns and overall is doing fairly good. The patie nt complains of having a fall on March 13, 2017 when he tripped over a hose. Prior to this gabriele whitten had complete resolution of his his left leg pain. Now, He has constant right leg numbness and reports it is his whole leg that is numb. He denies any pain or weakness in the affected leg. The patient has been walking as much as directed. He is still taking pain medications at this point. The patient has had no issues with his surgical site. CURRENT MEDICATIONS: Current Outpatient Prescriptions Medication Sig Dispense Refill Ergocalciferol (VITAMIN D2) 2000 units TABS Take 2,000 Units by mouth Daily. lactulose 10 g/15 mL liquid Take 15-30 mLs by mouth Daily as needed for Constipation. 2 40 mL 2 lovastatin (MEVACOR) 20 mg tablet Take 40 mg by mouth nightly. methylPREDNISolone (MEDROL DOSEPAK) 4 mg tablet FOLLOW INSTRUCTIONS, TAKE ORALLY TAT 21 tablet 0 oxyCODONE 10 MG TABS Take 1-2 tablets by mouth every 4 hours as needed (muscle spasm). 120 tablet 0 No current facility-administered medications for this visit. ALLERGIES: Allergies Allergen Reactions Diazepam Anaphylaxis and Hives SOCIAL HISTORY: The patient reports that he has never smoked. He uses smokeless tobacco. He reports that gabriele whitten does not drink alcohol or use drugs. INTERIM PHYSICAL EXAMINATION: Blood pressure 143/86, pulse 65, height 1.854 m (6' 1"), weight 131.8 kg (290 lb 9.6 oz). B yulia mass index is 38.34 kg/m. GENERAL: Zaheer Gramajo is in no acute distress with unlabored respirations. SPINE: The patient s incision is healing well without drainage, significant erythema, or discharge. EXTREMITIES: No lower extremity edema. NEUROLOGICAL EXAMINATION: MENTAL STATUS: The patient is awake, alert, and oriented. He follows simple and complex commands MOTOR EXAM: Motor strength is 5/5. This is improved when compared to the preoperative exam . SENSORY EXAM: The sensory examination is unchanged when compared to the preoperative exam. RADIOGRAPHIC REVIEW: X-rays today from his recent fall show no change in his hardware and no new fractures. ASSESSMENT: Encounter Diagnoses Name Primary? Numbness in both legs Yes S/P lumbar fusion Past Medical History: Diagnosis [...] but continues to recover from recent surgery. Given his new leg numbness I have ordered a MDP. Should his le ge symptoms get worse I would likely order a MRI before his 3 month PO visit. He will remain off work for now as previously planned. I increased the patient s activities now allowing 15 pound lifting. The patient should i ncrease range of motion activities as tolerated. They should continue regular exercise and strengthening with the hope that they can avoid [...] for re-evaluation. ELECTRONICALLY SIGNED BY: LAMIN Lindsay, 03/26/2017 8:49 3 Pallavi Ojeda Me dical Tap And Die Maker Technician - 03/26/2017 8:30 AM PDTREVIEW OF SYSTEMS GENERALLY: No fever, [...] of legs, awake with numbness/pain, wea kness, coordination difficulty, change in walk, pain in back and headaches. PSYCHIATRIC: No depression, no sleep disorders, [...] RHEUMATOLOGIC: No joint arthritis, no rheumatoid arthritis. Other: Difficulty sleeping.Electronically signed by Pallavi Troncoso Executive Wellness Programs Director at 8:56 AM PDTdocumented in this encounter Plan of Treatment Not on filedocumented as of this encounter Visit Diagnoses + + | Diagnosis | + + | Numbness in both legs - Primary Disturbance of skin sensation | + + | S/P lumbar fusion Arthrodesis status | + + documented in this encounter
--- OUTSIDE RECORDS SUMMARY | ~2019-09-01 | XMS | Encounter Summary ---
Demographics + + + | Address | [address] | | | [place] [address] | + + + | Home Phone | | + + + | Preferred Language | Unknown | + + + | Marital Status | | + + + | Adventist Affiliation | Unknown | + + + | Race | Unknown | + + + | Ethnic Group | Unknown | + + + Author + + + | Author | [facility] | | | and [place] | + + + | Organization | [facility] | | [...] | | | | | [place] [address] | | + + + + + Care Team Providers + +------+ + | Care Assistant News Director Name | Role | Phone | + [...] [place] | | | | | | [address] | | | | | | [phone] | | | +--------+ + + + [...]
--- OUTSIDE RECORDS SUMMARY | ~2019-09-01 | XMS | Encounter Summary ---
Demographics + + + | Address | [address] | | | [place] [address] | + + + | Home Phone | | + + + | Preferred Language | Unknown | + + + | Marital Status | | + + + | Holiness Affiliation | Unknown | + + + | Race | Unknown | + + + | Ethnic Group | Unknown | + + + Author + + + | Author | [facility] | | | and [place] | + + + | Organization | [facility] | | | and [place] | + + + | Address | Unknown | + + + | Phone | Unavailable | + + + Support + + + + + | Name | Relationship | Address | Phone | + + + + + | Alma Gramajo | ECON | [address] | | | | | [place] [address] | | + + + + + Care Team Providers + +------+ + | Care Certified Alcohol Counselor Name | Role | Phone | + [...] + + | 04/23/ | Office | [facility] | Berhane Chavez, | Lumbar spinal | | 2015 | Visit | NEUROSURGERY [address] | PA-C [address] | stenosis (Primary | | | | [address] | [address] [place] | Dx) | | | | [place], [place] | [place] [address] | | | | | [address] | [phone] | | | | | [phone] | | | +--------+---------+ + + + [...] f rom the original. LAMIN Lindsay [address] [facility], [address] [place], [place] [address] FAX: NEUROSURGERY FOLLOW-UP CHIEF COMPLAINT: Chief Complaint Patient presents with Follow-up MRI follow up HISTORY OF PRESENT ILLNESS: The patient is a 41 y.o. male that I saw in September for a foll ow up on is back pain. This is following a injury he sustained at work. In August 2014 wh en he was lifting a box at his job at the [email or web address]. 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
--- OUTSIDE RECORDS SUMMARY | ~2019-09-01 | XMS | Encounter Summary ---
Demographics + + + | Address | [address] | | | [place] [address] | + + + | Home Phone | | + + + | Preferred Language | Unknown | + + + | Marital Status | | + + + | Yarsani Affiliation | Unknown | + + + | Race | Unknown | + + + | Ethnic Group | Unknown | + + + Author + + + | Author | [facility] | | | and [place] | + + + | Organization | [facility] | | | and [place] | + + + | Address | Unknown | + + + | Phone | Unavailable | + + + Support + + + + + | Name | Relationship | Address | Phone | + + + + + | Alma Gramajo | ECON | [address] | | | | | [place] [address] | | + + + + + Care Team Providers + +------+ + | Care Butt Trimmer Name | Role | Phone | + +------+ + | Priyanka Sal PA-C | PCP | | + +------+ + Reason for Visit + + + | Reason | Comments | + + + | Surgery Appointment | | + + + Encounter Details +--------+ + + + + | Date | Type | Department | Care Team | Description | +--------+ + + + + | 02/03/ | Telephone | [facility] | Emil Garcia, | Surgery Appointment | | 2017 | | NEUR[address]UR[address] | DO [address] | | | | | [address] | [address] [place], [place] | | | | | [place], [place] | [address] | | | | | [address] | | | | | | [phone] | | | +--------+ + + + [...]
--- OUTSIDE RECORDS SUMMARY | ~2019-09-01 | XMS | Encounter Summary ---
Demographics + + + | Address | [address] | | | [place] [address] | + + + | Home Phone | | + + + | Preferred Language | Unknown | + + + | Marital Status | | + + + | Confucianism Affiliation | Unknown | + + + | Race | Unknown | + + + | Ethnic Group | Unknown | + + + Author + + + | Author | [facility] | | | and [place] | + + + | Organization | [facility] [...] | | | | | [place] [address] | | + + + + + Care Team Providers + +------+ + | Care Restaurant Cashier Name | Role | Phone | + [...] | Physical | Diagnoses | Scott, | Mai | | | Services | Medicine and [...] | | Spinal | [place], | [address] Phone: | | | | | stenosis of | [place] [address] | [phone] | | | | | lumbar | Phone: | Fax: | | | | | region, | [phone] | [phone] | | | | | unspecified | Fax: | | | | | | whether | [phone] | | | | | | neurogenic [...] + + | 12/23/ | Office | [facility] | Berhane Chavez, | Right leg weakness | | 2018 | Visit | NEUR[address]UR[address] | PA-C [address] | (Primary Dx); Lumbar | | | | [address] | [address] [place] | spondylosis; Spinal | | | | [place], [place] | [place] [address] | stenosis of lumbar | | | | [address] | [phone] | region, unspecified | | | | [phone] | | whether neurogenic | | | [...] encounter Patient Instructions Patient Instructions Kiesha Haque, Iron Piler - 12/23/2017 1:30 PM PDTIt was a [...] f rom the original. LAMIN Lindsay [address] [facility], [address] [place], [place] [address] FAX: [phone] NEUROSURGERY FOLLOW-UP CHIEF COMPLAINT: Chief Complaint Patient [...] anemia, + fatigue, no recent profound weight lrary nges. 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 CRANIAL NERVES: II: Acuity is intact. [...] Intrinsics 5 5 Ulnar Intrinsics 5 5 Heel Emery Buffer Strength 5 5 Hip Flexion 4- 5 [...] Some of the preoperative symptoms are improved. [facility] er I am concerned about his [...]
--- OUTSIDE RECORDS SUMMARY | ~2019-09-01 | XMS | Encounter Summary ---
Demographics + + + | Address | [address] | | | [place] [address] | + + + | Home Phone | | + + + | Preferred Language | Unknown | + + + | Marital Status | | + + + | Orthodoxy Affiliation | Unknown | + + + | Race | Unknown | + + + | Ethnic Group | Unknown | + + + Author + + + | Author | [facility] | | | and [place] | + + + | Organization | [facility] | | | and [...] | | | | | [place] [address] | | + + + + + Care Team Providers + +------+ + | Care Dredgemaster Name | Role | Phone | + +------+ + | Priyanka Sal PA-C | PCP | | + +------+ + Reason for Visit + + + | Reason | Comments | + + + | Surgery Appointment | Schedule Surgery | + + + Encounter Details +--------+ + + + + | Date | Type | Department | Care Team | Description | +--------+ + + + + | 10/29/ | Telephone | [facility] | Emil Garcia, | Surgery Appointment | | 2017 | | NEUR[address]UR[address] | DO [address] | (Schedule Surgery) | | | | [address] | [address] [place], [place] | | | | | [place], [place] | [id number] | | | | | [address] | | | | | | [phone] | | | +--------+ + + + [...]
--- OUTSIDE RECORDS SUMMARY | ~2019-09-01 | XMS | Encounter Summary ---
Demographics + + + | Address | [address] | | | [place] [address] | + + + | Home Phone [...] + | Organization | [facility] [...] | | | | | [place] [address] | | + + + + + Care Team Providers + +------+ + | Care Etiologist Name | Role | Phone | + [...] of | Berhane Ramon, | [address] | | | | | spine of | [address] | [place], | | | | | thoracic | [address] | [place] | | | | | region | [address] | [address] | | | | | Spondylolist | [place], | Phone: | | | | | hesis of | [place] [address] | [phone] | | | | | lumbar | Phone: | Fax: | | | | | region | [phone] | [phone] | | | | | Myelopathy | Fax: | | | | | | ([facility]) | [phone] | | | | | | Procedures [...] of | Berhane E, | [address] | | | | | spine of | PA-C [address] | [place], | | | | | thoracic | [address] | [place] | | | | | region | [address] | [address] | | | | | Spondylolist | [place], | Phone: | | | | | hesis of | [place] [address] | [phone] | | | | | lumbar | Phone: | Fax: | | | | | region | [phone] | [phone] | | | | | Myelopathy | Fax: | | | | | | ([facility]) | [phone] | | | | | | Procedures [...] | | | Procedures | [place], | [address] Phone: | | | | | [place] OFFICE | [place] [address] | [phone] | | | | | CONSULTATION | Phone: | Fax: | | | | | NEW/ESTAB | [phone] | [phone] | | | | | PATIENT 60 | Fax: | | | | | | MIN OK TO | [phone] | | | | | | SCHEDULE | | | +--------+--------+ + + + + Encounter Details +--------+---------+ + + + | Date | Type | Department | Care Team | Description | +--------+---------+ + + + | 01/18/ | Office | [facility] | Scott Berhane Fish, | Fusion of spine of | | 2016 | Visit | NEUROSURGERY [address] | PA-C [address] | thoracic region | | | | [address] | [address] [place] | (Primary Dx); | | | | [place], [place] | [place] [address] | Spondylolisthesis of | | | | [address] | [phone] | lumbar region; | | | | [phone] | | Myelopathy (HCC) | +--------+---------+ + [...] documented in this encounter Progress Notes Berhane Chvaez PA - 09/18/2015 3:18 PM PSTFormatting of this note might be different f rom the original. LAMIN Lindsay [address] [facility], [address] [place] [address] FAX: NEUROSURGERY FOLLOW-UP CHIEF COMPLAINT: Chief Complaint [...] a box at his job at the [employer]. While lifting this box and twisting he [...] has no apparent deficits with short or fci memory. CRANIAL NERVES: II: Acuity is intact. 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 | [address] | [place] | [phone] | | [facility] | | [address] | | | - IMAGING | | [...] spine fusion with new radicular symptoms | [facility] | | and myelopathy COMPARISON: 05/18/2013, chest CT 08/06/[address] [facility] | | lumbar CT 08/24/2015 TECHNIQUE: In [...] | + + + + + | [facility] [address] | [address] | [place] | [phone] | | [facility] | | [address] | | | - IMAGING | | [...]
--- OUTSIDE RECORDS SUMMARY | ~2019-09-01 | XMS | Encounter Summary ---
Demographics + + + | Address | [address] | | | [place] [address] | + + + | Home Phone | | + + + | Preferred Language | Unknown | + + + | Marital Status | | + + + | Pentecostalism Affiliation | Unknown | + + + | Race | Unknown | + + + | Ethnic Group | Unknown | + + + Author + + + | Author | [facility] | | | and [place] | + + + | Organization | [facility] | | | and [...] | | | | | [place] [address] | | + + + + + Care Team Providers + +------+ + | Care Home Health Care Worker Name | Role | Phone | + +------+ + | Priyanka Sal PA-C | PCP | | + +------+ + Reason for Visit +---------+ + | Reason | Comments | +---------+ + | Post Op | RIGHT INGUINAL HERNIA REPAIR WITH MESH | +---------+ + Evaluate & Treat (Routine) +--------+ + [...] | | | | obstruction | [place] [address] | [place] [address] | | | | | or gangrene | Phone: | Phone: | | | | | | [phone] | [phone] | | | | | | Fax: | Fax: | | | | | | [phone] | [phone] | +--------+ + + + + + Encounter Details +--------+---------+ + + + | Date | Type | Department | Care Team | Description | +--------+---------+ + + + | 09/03/ | Office | [facility] | Cris Gutierrez | S/P inguinal hernia | | 2018 | Visit | SUR[address] | [address] | repair (Primary Dx); | | | | [place], [place] | [address] [place] | Post-operative | | | | [address] | [place] [address] | state; Inguinal | | | | [phone] | [phone] | hernia of right side | | | | | | without obstruction | | | | | | or gangrene | +--------+---------+ + + + Social History [...] + + + + | Pulse | 72 | 09/03/2018 3:04 PM | | | | | PST | | + + + + + | Temperature | 36 C (96.8 F) | 09/03/2018 3:04 PM | | | | | PST | | + + + + + | Respiratory Rate | - | - | | + + + + + | Oxygen Saturation | 97% | 09/03/2018 3:04 PM | | | [...] Height | 188 cm (6' 2") | 09/03/2018 3:04 PM | | | [...] + + documented as of this encounter Progress Notes Cris Gutierrez MD - 09/03/2018 3:00 PM PST Post op Note Referring Provider: Michael Engel MD HISTORY OF PRESENT ILLNESS Patient Identification: Zaheer Gramajo 1975 Is a 43 y.o. male, a patie nt of Priyanka Sal PA-C. Patient is here alone. S: Date of surgery: 08/12/2018. Title of surgery: RIGHT INGUINAL HERNIA REPAIR WITH M ESH. Physician notes: David is here for follow-up after right inguinal hernia repair with mesh. He is doing well after surgery and has no complaints in the groin. Initially he had some significant swelli ng but this is improved. He started going back to work yesterday and did not have any probl ems in the groin. He brings paperwork to sign Imaging/ Pathology: None PAST MEDICAL HISTORY Past Medical History: Diagnosis [...] deficiency Past Surgical History: Procedure Laterality Date INGUINAL HERNIA REPAIR Right 08/12/2018 Procedure: RIGHT INGUINAL HERNIA REPAIR WITH MESH; Surgeon: Cris Gutierrez MD; Loca tion: [facility] MAIN OR LUMBAR SPINE SURGERY N/A 02/05/2017 Procedure: L3-4 Extreme Lateral Interbody Fusion; Surgeon: Emil Garcia DO; Location: [facility] MAIN OR LUMBAR SPINE SURGERY 2013 - [facility] URETEROSCOPY Left 02/12/2018 Procedure: Left Ureteroscopy, Laser Lithotripsy and Stent; Surgeon: Satinder Elizondo MD; Location: [facility] MAIN OR Allergies Allergen Reactions Diazepam Anaphylaxis and Hives Fenofibrate Other (See Comments) Reaction not specified in outside medical records Medications: Outpatient Encounter Prescriptions as of 09/03/2018 Medication Sig Dispense Refill acetaminophen (TYLENOL) 500 mg tablet Take 1-2 tablets by mouth every 6 hours as needed for Pain. 60 tablet 0 Ergocalciferol (VITAMIN D2) 2000 units TABS Take 2,000 Units by mouth Daily. ibuprofen (ADVIL,MOTRIN) 600 MG tablet Take 1 tablet by mouth every 6 hours as needed f or Pain. 60 tablet 1 ibuprofen (ADVIL,MOTRIN) 600 MG tablet Take 600 mg by mouth every 6 hours as needed for Pain. lovastatin (MEVACOR) 20 mg tablet Take 40 mg by mouth nightly. oxyCODONE (ROXICODONE) 5 mg tablet Take 1-2 tablets by mouth every 6 hours as needed fo r Pain. (Patient not taking: Reported on 09/03/2018) 30 tablet 0 No facility-administered encounter medications on file as of 09/03/2018. Family History: His family history includes Cancer in his paternal grandmother; GERD in his mother; Heart d isease in his mother; Other (see comment) in his paternal grandfather. Social History: He reports that he has never smoked. His smokeless tobacco use includes Chew. He reports th at he does not drink alcohol or use drugs. PHYSICAL EXAM Pulse 72 | Temp 36 C (96.8 F) (Temporal) | Ht 1.88 m (6' 2") | Wt 135.6 kg (299 lb) | SpO2 97% | BMI 38.39 kg/m PE: Gen.: No apparent distress Right groin: Incision is clean and intact with a healing ridge present, no skin changes, pr obably tender. ASSESSMENT/PLAN Zaheer was seen today for post op. Diagnoses and all orders for this visit: S/P inguinal hernia repair Post-operative state Inguinal hernia of right side without obstruction or gangrene 43-year-old male postop day 22 status post right inguinal hernia repair with mesh doing wel l postoperatively. He has no complaints today. He is happy with his surgical outcome. He is restarted going back to work. No need for scheduled follow-up appointment but he understands that he can call for an appo intment on an as-needed basis if he has any questions or concerns or problems. Thank you for allowing me to participate in the care of this patient. If you have any ques tions regarding this management please do not hesitate to give me a call. Cris Gutierrez MD CC PCP: Priyanka Sal PA-C Portions of this chart may have been created with [employer] voice recognition software. Occasi onal wrong-word or sound-alike substitutions may have occurred due to the inherent ann itations of voice recognition software. Please read the chart carefully and recognize, using context, where these substitutions have occurred. documented in this encounter Plan of Treatment Not on filedocumented as of this encounter Visit Diagnoses + + | Diagnosis | + + | S/P inguinal hernia repair - Primary Other postprocedural status | + + | Post-operative state Other postprocedural status | + + | Inguinal hernia of right side without obstruction or gangrene | + + documented in this encounter
--- OUTSIDE RECORDS SUMMARY | ~2019-09-01 | XMS | Encounter Summary ---
Demographics + + + | Address | [address] | | | [place] [address] | + + + | Home Phone | | + + + | Preferred Language | Unknown | + + + | Marital Status | | + + + | Congregational Affiliation | Unknown | + + + | Race | Unknown | + + + | Ethnic Group | Unknown | + + + Author + + + | Author | [facility] | | | and [place] | + + + | Organization | [facility] | | | and [...] | | | | | [place] [address] | | + + + + + Care Team Providers + +------+ + | Care Bullion Weigher Name | Role | Phone | + +------+ + | Priyanka Sal PA-C | PCP | | + +------+ + Reason for Visit + + + | Reason | Comments | + + + | Nephrolithiasis | left | + + + Evaluate & Treat (Routine) +--------+--------+ + + + + | Status | Reason | Specialty | Diagnoses / | Referred By | Referred To | | | | | Procedures | Contact | Contact | +--------+--------+ + + + + | Closed | | Urology | Diagnoses | Syed, | Spendlove, | | | | | Left | Zaheer, | Satinder Lagos, | | | | | nephrolithia | MD [address] | | | | | sis NEW/ | [address] | [facility] | | | | | LEFT | [place], [place] | [place], [place] | | | | | [place] | [address] | [address] Phone: | | | | | SIS/ SYED | Phone: | [phone] | | | | | Procedures | [phone] | Fax: | | | | | NEW PATIENT | Fax: | [phone] | | | | | | [phone] | | +--------+--------+ + + + + Encounter Details +--------+---------+ + + + | Date | Type | Department | Care Team | Description | +--------+---------+ + + + | 12/16/ | Office | [facility] | Spendlove, Satinder | Nephrolithiasis | | 2018 | Visit | [address] | MD Demond [address] | (Primary Dx); | | | | [place], [place] | [place], [place] | Hypertension, | | | | [address] | [address] | unspecified type; | | | | [phone] | | Erectile | | | | | | dysfunction, | | | | | | unspecified erectile | | | | | | dysfunction type | +--------+---------+ + + + Social History [...] + + + | Blood Pressure | 132/92 | 12/16/2017 8:52 AM | | | | | PDT | | + + + + + | Pulse | 76 | 12/16/2017 8:52 AM | | | | | PDT | | + + + + + | Temperature | - | - | | + + + + + | Respiratory Rate | 18 | 12/16/2017 8:52 AM | | | | | PDT | | + + + + + | Oxygen Saturation | - | - | | + + + + + | Inhaled Oxygen | - | - | | | Concentration | | | | + + + + + | Weight | 138.8 kg (306 lb) | 12/16/2017 8:52 AM | | | | | PDT | | + + + + + | Height | 188 cm (6' 2") | 12/16/2017 8:52 AM | | | | | PDT | | + + + + + | Body Mass Index | 39.29 | 12/16/2017 8:52 AM | | | | | PDT [...] documented as of this encounter Progress Notes Satinder Elizondo MD - 12/16/2017 9:00 AM PDTFormatting of this note might be different f rom the original. Chief Complaint Patient presents with Nephrolithiasis left HPI Mcbrides Robson Gramajo is a 42 y.o. male patient of Priyanka Sal PA-C here today for an evaluation of left nephrolithiasis. Presented to ED last week with acute left flank pain. Patient has long history of back noreen n and 3 prior back surgeries. When the pain did not go away with rest, he was concered and went to the ED. Had N/V, no dysuria or gross hematuria Diagnosed with large kidney stone at that time. His pain was controlled and the patient wa s discharged home. Today reports mild to moderate stable left flank pain. At this time he doesn't know if his pain is related to his back with a kidney stone. He denies any gross hematuria no nausea n o vomiting. LUTS: worsening frequency and urgency Assessment Zaheer was seen today for nephrolithiasis. Diagnoses and all orders for this visit: Nephrolithiasis - POCT Urinalysis Dipstick Automated - CBC w/ Auto Differential; Future - Basic Metabolic Panel; Future - ECG 12 lead; Future Hypertension, unspecified type - ECG 12 lead; Future Erectile dysfunction, unspecified erectile dysfunction type - ECG 12 lead; Future Plan CT scan reveals a large 12 mm stone in the left collecting system. It does appear that thi s stone could be obstructing the calyx however there is no gross evidence of hydronephrosis. Recommend stone be treated. Patient states that he is not able to undergo procedure at th e moment however thinks she will have a time in early January. We discussed that it is possibl e he presents to the emergency room with acute onset of worsening pain. If this should happ en a can recommend patient undergo surgery sooner rather than later. We discussed risks fro m surgery including ureteral perforation, ureteral injury, ureteral stricture, renal hematom a, urethral stricture, bladder injury and need for further procedures. Patient will be scheduled for surgery. Past Medical History Past Medical History: Diagnosis [...] Interbody Fusion; Surgeon: Emil Garcia DO; Location: [facility] MAIN OR LUMBAR SPINE SURGERY 2014 x2 Family History: Family History Problem Relation Age of Onset Other (see comment) Mother Heart problems Cancer Paternal Grandmother Other (see comment) Paternal Grandfather Heart problems Social History: Social History Social History Marital [...] by mouth nightly., Disp: , Rfl: ROS Objective BP (!) 132/92 | Pulse 76 | Resp 18 | Ht 1.88 m (6' 2") | Wt (!) 138.8 kg (306 lb) | BM I 39.29 kg/m General Appearance: Alert, cooperative, no distress, appears stated age, obese Head: Normocephalic, without obvious abnormality, atraumatic Eyes: conjunctiva/corneas clear, EOM's intact Throat: Lips, mucosa, and tongue normal; no gross deformities, mmm Neck: Supple, symmetrical, no adenopathy Lungs: Regular, unlabored breathing MS No CVA tenderness, no spinal tenderness, no scoliosis present Abdomen: Soft, non-tender, no masses Extremities: Extremities normal, atraumatic, no cyanosis, clubbing, or edema Pulses: Radial pulses 2+ and symmetric Skin: Warm and dry Lymph nodes: Cervical and supraclavicular nodes normal Neurologic: Shuffling gate, he drags his right [...] normal. UA shows no evidence of blood REVIEW OF SYSTEMS: [] All Negative Constitutional Symptoms: []Fever []Chills [x]Headache []Change in appetite [] Change in weight [x] Change in ener gy []Other: Neurological: []Tremors []Dizzy Spells []Numbness/Tingling []Seizures []Other: Endocrine: []Excessive thirst []Too hot [] Too cold [x]Tired/Sluggish Gastrointestinal: []Abdominal pain [x]Nausea/vomiting []Indigestion/heartburn []Change in stool size [] Schuster ge in stool shape [] Change in stool color []Pain with swallowing []Other: Cardiovascular: []Chest Pain []Rapid heart rate []High blood pressure []Other: Integumentary: []Skin rash []Boils []Persistent itch []Other: Musculoskeletal: []Neck Pain [x]Joint swelling/pain [x]Back pain []Bone pain []Other: Respiratory: []Wheezing []Frequent cough [x]Shortness of breath []Other: Hematologic/Lymphatic: []Swollen glands []Blood clotting problems []Prior blood transfusions []Other: Psychologic: Are you generally satisfied with your life? yes Do you feel severely depressed? no Have you considered suicide? no Other: Habits: Do you smoke? no AUA BPH SYMPTOM SCORE Not at all Less than 1 times in 5 Less than half the time About half the time More than half the time Almost always INCOMPLETE EMPTYING Over the past month, how often have you had the sensation of not empty ing your bladder completely after you finished urinating? [] 0 [] 1 [] 2 [x] 3 [] 4 [] 5 FREQUENCY Over the past month, how often have you had to urinate again less than 2 hours a fter you finished urinating? [] 0 [] 1 [] 2 [x] 3 [] 4 [] 5 INTERMITTENCY Over the past month, how often have you found you stopped and started again several times when you urinated? [x] 0 [] 1 [] 2 [] 3 [] 4 [] 5 URGE TO URINATE Over the past month, how often have you found it difficult to postpone uri nation? [] 0 [] 1 [] 2 [x] 3 [] 4 [] 5 WEAK STREAM Over the past month, how often have you had a weak urinary stream? [x] 0 [] 1 [] 2 [] 3 [] 4 [] 5 STRAINING Over the past month, how often have you had to push or strain to begin urination ? [x] 0 [] 1 [] 2 [] 3 [] 4 [] 5 None 1 time 2 times 3 times 4 times 5 or more times URINATING AT NIGHT Over the past month, how many times did you most typically get up to ur inated from the time you went to bed at night until the time you got up in the morning? [] 0 [x] 1 [] 2 [] 3 [] 4 [] 5 Symptom Score: Mild 1-7, Moderate 8-19, Severe 20-35 TOTAL: 10 BOTHER SCORE DUE TO URINARY SYMPTOMS Delighted Pleased Mostly Satisfied Mixed Mostly dissatisfied Unhappy Terrible BOTHERSOMENESS OF URINARY SYMPTOMS How would you feel if you had to live with your urinary condition the way it is now, no better, no worse, for the rest of your life? [] 0 [] 1 [] 2 [x] 3 [] 4 [] 5 [] 6 Results for orders placed or performed in visit on 12/16/17 POCT Urinalysis Dipstick Automated Result Value Ref Range Color, UA, POC Yellow Yellow, Light Yellow Clarity, UA, POC Clear Glucose, UA, POC Negative Negative Bilirubin, UA, POC Negative Negative Ketones, UA, POC Negative Negative, 100 mg/dL Specific Hassell, UA, POC 1.020 1.001 - 1.030 Blood, [...] PA-C's notes were reviewed in clinic today. Return in about 7 weeks (around 02/03/2018).. CC: Priyanka Sal PA-C documented in this encounter Plan of Treatment + +------+--------+ + + | Name | Type | Priori | Associated Diagnoses | Order Schedule | | | | ty | | | + +------+--------+ + + | CBC w/ Auto | Lab | Routin | Nephrolithiasis | Expected: 02/03/2018 | | Differential | | e | | (Approximate), | | | | | | Expires: 12/16/2018 | + +------+--------+ + + | Basic Metabolic | Lab | Routin | Nephrolithiasis | Expected: 02/03/2018 | | Panel | | e | | (Approximate), | | | | | | Expires: 12/16/2018 | + +------+--------+ + + | ECG 12 lead | ECG | Routin | Nephrolithiasis | Expected: 02/03/2018 | | | | e | Hypertension, | (Approximate), | | | | | unspecified type | Expires: 12/16/2018 | | | | | Erectile | | | | | | dysfunction, | | | | | | unspecified erectile | | | | | | dysfunction type | | + +------+--------+ + + documented as of this encounter Procedures + +--------+ + + + | Procedure Name | Priori | Date/Time | Associated Diagnosis | Comments | | | ty | | | | + +--------+ + + + | POCT URINALYSIS, | Routin | 12/16/2017 | Nephrolithiasis | Results for this | | AUTO WITH CONF | e | 9:14 AM | | procedure are in the | | | | PDT | | results section. | + +--------+ + + + documented in this encounter Results POCT Urinalysis Dipstick Automated (12/16/2017 9:14 AM PDT) + + + + + + | Component | Value | Ref Range | Performed | Pathologist | | | | | At | Signature | + + + + + + | Color, UA, | Yellow | Yellow, Light | | | | POC | | Yellow | | | + + + + + + | Clarity, | Clear | | | | | UA, POC | | | | | + + + + + + | Glucose, | Negative | Negative | | | | UA, POC | | | | | + + + + + + | Bilirubin, | Negative | Negative | | | | UA, POC | | | | | + + + + + + | Ketones, | Negative | Negative, 100 | | | | UA, POC | | mg/dL | | | + + + + + + | Specific | 1.020 | 1.001 - 1.030 | | | | Hassell, | | | | | | UA, POC | | | | | + + + + + + | Blood, UA, | Negative | Negative | | | | POC | | | | | + + + + + + | pH, UA, POC | 7.0 | 5.0, 6.0, 7.0, | | | | | | 8.0, 5.5, 6.5, | | | | | | 7.5 | | | + + + + + + | Protein, | Trace (A) | Negative | | | | UA, POC | | | | | + + + + + + | Urobilinoge | 2.0 E.U./dL (A) | 0.2, Negative, | | | | n, UA, POC | | Normal, < 0.2 | | | | | | mg/dL, 1 mg/dL, | | | | | | < 0.2 E.U./dl, | | | | | | 1.0 E.U./dL, | | | | | | 0.2 mg/dL | | | + + + + + + | Nitrite, | Negative | Negative | | | | UA, POC | | | | | + + + + + + | Leukocyte | Negative | Negative | | | | Esterase, | | | | | | UA, POC | | | | | + + + + + + | Reducing | | | | | | Substances, | | | | | | Urine | | | | | + + + + + + | Ictotest | | Negative | | | + + + + + + | Remark | | | | | + + + + + + + + | Specimen | + + | Urine | + + documented in this encounter Visit Diagnoses + + | Diagnosis | + + | Nephrolithiasis - Primary Calculus of kidney | + + | Hypertension, unspecified type | + + | Erectile dysfunction, unspecified erectile dysfunction type | + + documented in this encounter
--- OUTSIDE RECORDS SUMMARY | ~2019-09-01 | XMS | Encounter Summary ---
Demographics + + + | Address | [address] | | | [place] [address] | + + + | Home Phone | | + + + | Preferred Language | Unknown | + + + | Marital Status | | + + + | Mu-Ism Affiliation | Unknown | + + + | Race | Unknown | + + + | Ethnic Group | Unknown | + + + Author + + + | Author | [facility] | | | and [place] | + + + | Organization | [facility] | | | and [place] | + + + | Address | Unknown | + + + | Phone | Unavailable | + + + Support + + + + + | Name | Relationship | Address | Phone | + + + + + | Alma Ochoa | ECON | [address] | | | | | [place] [address] | | + + + + + Care Team Providers + +------+ + | Care Commercial Real Estate Associate Name | Role | Phone | + +------+ + | Hudson Nair | PCP | | | MD | | | + +------+ + Reason for Visit Evaluate & Treat (Urgent) +--------+--------+ + + + + | Status | Reason | Specialty | Diagnoses / | Referred By | Referred To | | | | | Procedures | Contact | Contact | +--------+--------+ + + + + | Closed | | Neurosurgery | Diagnoses | Jonelle, | Radha, | | | | | Bilateral | MIKE Mathew | Emil Aleman DO | | | | | leg numbness | [address] | [address] | | | | | Procedures | [place] | [address] | | | | | [place] OFFICE | [address] | [place] | | | | | CONSULTATION | [place], | [address] Phone: | | | | | NEW/ESTAB | [place] [address] | [phone] | | | | | PATIENT 60 | Phone: | Fax: | | | | | MIN | [phone] | [phone] | | | | | | Fax: | | | | | | | [phone] | | +--------+--------+ + + + + Encounter Details +--------+---------+ + + + | Date | Type | Department | Care Team | Description | +--------+---------+ + + + | 07/19/ | Office | [facility] [place] | Emil Garcia, | Status post lumbar | | 2012 | Visit | NEUROSURGERY [address] | DO [address] | spinal fusion | | | | [address] | [address] [place] | (Primary Dx) | | | | [place] | [id number] | | | | | [address] | | | | | | [phone] | | | +--------+---------+ + + + [...] documented as of this encounter Progress Notes China Guzmán [employer] - 07/22/2013 10:09 AM PSTError documented in this encounter Plan of Treatment Not on filedocumented as of this encounter Results XR Thoracic Spine 2 Vw (07/19/2013 11:01 AM PST) + + | Specimen | + + | | + + + + + | Narrative | Performed At | + + + | [facility] | [place] | | Department [address] [facility] [place], [place] | [facility] | | [ rep [address]] [ rep [facility] | | st zip] Signed | - IMAGING | | | | | Patient Name: ROSARIO OCHOA Remington | | | Physician: DENILSON : 1975 Age: 38 Sex: M Unit | | | #: [id number] Exam Date: 07/19/13 Location: | | | IMG Report #: [id number] Page: | | | %(RAD)RES..mtdd.print.filter("pg") of %(RAD) | | | RES..mtdd.print.filter("tpg") | | | | | | Accession Number: [id number] | | | TWO VIEWS OF THORACIC SPINE, 07/19/2013 CLINICAL HISTORY: | | | STATUS POST THORACIC FUSION. COMPARISON: Intraoperative | | | images from 05/18/2013, lumbar MRI 05/18/2013, abdominal radiographs | | | 2012. FINDINGS: Interbody and posterior aditya and | | | pedicle screw fusion hardware remains in similar, satisfactory | | | position and alignment at T11-12. Small Schmorl's nodes are again | | | visible within the vertebral endplates at T12-L1 and L1-2. Vertebral | | | height appears maintained, without suspicion for fracture. Mild | | | retrolisthesis is again visible at L2-3. There is mild, generalized | | | leftward curvature of the imaged lower thoracic and lumbar spine. | | | Imaged soft tissue structures are unremarkable. IMPRESSION: | | | 1. SIMILAR, SATISFACTORY APPEARANCE STATUS POST OPERATIVE | | | INTERBODY AND POSTERIOR ADITYA AND PEDICLE SCREW FUSION AT T11-12, WITH | | | PERSISTENT MILD RETROLISTHESIS AT L2-3 AND MILD LEFTWARD | | | THORACOLUMBAR CURVATURE. Dictated Date/Time: 07/19/2013 | | | 11:01 Transcribed Date/Time: 07/19/2013 14:38 | | | Networking Specialist: <<Signature on File>> | | | Juan | | | Theo Ramires MD07/19/13 0525 <Electronically signed by Juan Ramires | | | MD> Juan Ramires MD 07/19/13 [id number] Networking Specialist: | | | [employer] [id number]/18/13 6621 Emil Garcia DO | | | | | + + + + + + + + | Performing | Address | City/State/Zipcode | Phone Number | | Organization | | | | + + + + + | [facility] | [address] | [place] | [phone] | | [facility] | | [address] | | | - IMAGING | | | | + + + + + documented in this encounter Visit Diagnoses + + | Diagnosis | + + | Status post lumbar spinal fusion - Primary Arthrodesis status | + + documented in this encounter
--- OUTSIDE RECORDS SUMMARY | ~2019-09-01 | XMS | Encounter Summary ---
Demographics + + + | Address | [address] | | | [place] [address] | + + + | Home Phone | | + + + | Preferred Language | Unknown | + + + | Marital Status | | + + + | Spiritism Affiliation | Unknown | + + + | Race | Unknown | + + + | Ethnic Group | Unknown | + + + Author + + + | Author | [facility] | | | and [place] | + + + | Organization | [facility] | | | and [place] | + + + | Address | Unknown | + + + | Phone | Unavailable | + + + Support + + + + + | Name | Relationship | Address | Phone | + + + + + | Alma Gramajo | ECON | [address] | | | | | [place] [address] | | + + + + + Care Team Providers + +------+ + | Care Operations Research Engineer Name | Role | Phone | + +------+ + | Priyanka Sal PA-C | PCP | | + +------+ + Encounter Details +--------+ + + + + | Date | Type | Department | Care Team | Description | +--------+ + + + + | 03/31/ | Abstract | [facility] [place] | Adán Oneill | | | 2017 | | PHYSIATRY [address] | [address] | | | | | [place], | [address] [place] | | | | | [place] [address] | [address] | | | | | [phone] | | | +--------+ + + + [...]
--- OUTSIDE RECORDS SUMMARY | ~2019-09-01 | XMS | Encounter Summary ---
Demographics + + + | Address | [address] | | | [place] [address] | + + + | Home Phone | | + + + | Preferred Language | Unknown | + + + | Marital Status | | + + + | Hoahaoism Affiliation | Unknown | + + + | Race | Unknown | + + + | Ethnic Group | Unknown | + + + Author + + + | Author | [facility] | | | and [place] | + + + | Organization | [facility] | | | and [...] | | | | | [place] [address] | | + + + + + Care Team Providers + +------+ + | Care Medical Sales Name | Role | Phone | + +------+ + | Priyanka Sal PA-C | PCP | | + +------+ + Reason for Visit + + + | Reason | Comments | + + + | Appointment | Rsch from 4/3 AM to PM | + + + Encounter Details +--------+ + + + + | Date | Type | Department | Care Team | Description | +--------+ + + + + | 11/27/ | Telephone | [facility] | Emil Garcia, | Appointment ([place] | | 2018 | | NEUROSURGERY [address] | DO [address] | from 4/3 AM to PM) | | | | [address] | [address] [place], [place] | | | | | [place], [place] | [id number] | | | | | [address] | | | | | | [phone] | | | +--------+ + + + [...]
--- OUTSIDE RECORDS SUMMARY | ~2019-09-01 | XMS | Encounter Summary ---
Demographics + + + | Address | [address] | | | [place] [address] | + + + | Home Phone | | + + + | Preferred Language | Unknown | + + + | Marital Status | | + + + | Orthodox Affiliation | Unknown | + + + | Race | Unknown | + + + | Ethnic Group | Unknown | + + + Author + + + | Author | [facility] | | | and [place] | + + + | Organization | [facility] [...] | | | | | [place] [address] | | + + + + + Care Team Providers + +------+ + | Care Commercial Analyst Name | Role | Phone | + +------+ + | Priyanka Sal PA-C | PCP | | + +------+ + Encounter Details +--------+ + + + + | Date | Type | Department | Care Team | Description | +--------+ + + + + | 03/13/ | Hospital | [facility] | Emil Garcia, | Osteoarthritis of | | 2017 | Encounter | MED CTR XRAY [address] | DO [address] | spine with | | | | [place] | [address] [place], [place] | radiculopathy, | | | | [place] [address] | [address] | lumbar region; | | | | [phone] | | Status post lumbar | | | | | | spinal fusion | +--------+ + + + + [...] tablets by | 120 | 0 | 03/13/20 | | | TABS | mouth every 4 hours | tablet | | 17 | 8 | | | as needed (muscle | [...] + +--------+ + + + | XR LUMBAR SPINE 2 OR | Routin | 03/13/2017 | Osteoarthritis of | Results for this | | 3 VW | e | 12:33 PM | spine with | procedure are in the | | | | PDT | radiculopathy, | results section. | | | | | lumbar region | | | | | | Status post lumbar | | | | | | spinal fusion | | + +--------+ + + + documented in this encounter Results XR Lumbar Spine 2 or 3 Vw (03/13/2017 12:33 PM PDT) + + | Specimen | + + | | + + + + + | Narrative | Performed At | + + + | CLINICAL INFORMATION: S/P Lumbar fusion. COMPARISON: | LINN[facility] | | 02/05/2017. FINDINGS: AP and lateral views of the lumbosacral | [facility] | | spine. Posterior pedicle screw and magali fusion changes at L3-4 [facility] | | with interbody graft spacer. No evidence of hardware complication. | - IMAGING | | Prominent lordosis of the lumbar spine. Stable slight retrolisthesis | | | of L2 over L3. Mild degenerative disc disease at L1-2 and L2-3. | | | IMPRESSION - No evidence of interval complication. Dictated and | | | Signed by: Javier Hernández MD Electronically signed: 03/13/2017 | | | 1:36 PM | | + + + + + | Procedure Note | + + | Deo Silveira Results In - 03/13/2017 1:39 PM PDT | | CLINICAL INFORMATION: S/P Lumbar fusion. | | | | COMPARISON: 02/05/2017. | | | | FINDINGS: | | AP and lateral views of the lumbosacral spine. | | | | Posterior pedicle screw and magali fusion changes at L3-4 with interbody graft | | spacer. No evidence of hardware complication. | | | | Prominent lordosis of the lumbar spine. Stable slight retrolisthesis of L2 over | | L3. Mild degenerative disc disease at L1-2 and L2-3. | | | | | | IMPRESSION - No evidence of interval complication. | | | | Dictated and Signed by: Javier Hernández MD | | Electronically signed: 03/13/2017 1:36 PM | + + + + + + + | Performing | Address | City/State/Zipcode | Phone Number | | Organization | | | | + + + + + | [facility] | [address] | [place] | [phone] | | [facility] | | [address] | | | - IMAGING | | | | + + + + + documented in this encounter Visit Diagnoses + + | Diagnosis | + + | Osteoarthritis of spine with radiculopathy, lumbar region | + + | Status post lumbar spinal fusion Arthrodesis status | + + documented in this encounter"
--- OUTSIDE RECORDS SUMMARY | ~2019-09-01 | XMS | Encounter Summary ---
Demographics + + + | Address | [address] | | | [place] [address] | + + + | Home Phone [...] Organization | [facility] | | | and [...] | | | | | [place] [address] | | + + + + + Care Team Providers + +------+ + | Care Tele Tech Name | Role | Phone | + +------+ + | Priyanka Sal PA-C | PCP | | + +------+ + Reason for Visit +--------+ + | Reason | Comments | +--------+ + | Fall | | +--------+ + Encounter Details +--------+ + + + + | Date | Type | Department | Care Team | Description | +--------+ + + + + | 03/15/ | Emergency | [facility] | Bao Faulkner, | Lumbar radiculopathy | | 2017 | | [facility] | [address] | (Primary Dx); | | | | CENTER [address] | [place], [place] | Status post lumbar | | | | [place], [place] | [address] | spinal fusion | | | | [address] | | | | | | [phone] | Gabe Stein MD | | | | | | [address] | | | | | | [place], [place] | | | | | | [address] | | | | | | | [...] + + + | Blood Pressure | 130/87 | 03/15/2017 8:09 PM | | | | | PDT | | + + + + + | Pulse | 89 | 03/15/2017 8:09 PM | | | | | PDT | | + + + + + | Temperature | 36.3 C (97.4 F) | 03/15/2017 8:09 PM | | | | | PDT | | + + + + + | Respiratory Rate | 16 | 03/15/2017 8:09 PM | | | | | PDT | | + + + + + | Oxygen Saturation | 100% | 03/15/2017 8:09 PM | | | | | PDT | | + + + + + | Inhaled Oxygen | - | - | | | Concentration | | | | + + + + + | Weight | 131.5 kg (290 lb) | 03/15/2017 8:09 PM | | | | | PDT | | + + + + + | Height | 185.4 cm (6' 1") | 03/15/2017 8:09 PM | | | | | PDT | | + + + + + | Body Mass Index | 38.26 | 03/15/2017 8:09 PM | | | | | PDT [...] as of this encounter Discharge Instructions Instructions Gabe Stein MD - 03/15/2017Continue medications as previously Follow-up with Dr. Garcia Return for worsening symptoms, not improving, or other new complaints documented in this encounter Medications at Time [...] | XR LUMBAR SPINE 2 OR | STAT | 03/15/2017 | | Results for this | | 3 VW | | 8:39 PM | | procedure are in the | | | | PDT | | results section. | + +--------+ + + + documented in this encounter Results XR Lumbar Spine 2 or 3 Vw (03/15/2017 8:39 PM PDT) + + | Specimen | + + | | + + + + + | Narrative | Performed At | + + + | XR LUMBAR SPINE 2 OR 3 VW 03/15/2017 8:22 PM HISTORY: FALL. | [facility] | | COMPARISON: 03/13/2017 FINDINGS: Stable PLIF at T11-T12 and L3-L4 | | | with interbody spacers identified at these levels, without evidence | | | of interval complication. Background of mild lumbar spondylosis which | | | is unchanged. 11 mm ossific fragment projects over the midpole the | | | left kidney, new since prior examination. No significant colonic stool | | | retention. No organomegaly. IMPRESSION - No acute findings. | | | Stable PLIF at T11-T12 and L3-L4 with interbody spacers identified | | | at these levels, without evidence of interval complication. 11 mm | | | calcification projects over the midpole of the left kidney, | | | concerning for renal calculi. Dictated and Signed by: Gavin | | | MD William Electronically signed: 03/15/2017 9:48 PM | | + + + + + | Procedure Note | + + | Raoul, Rad Results In - 03/15/2017 9:51 PM PDT XR LUMBAR SPINE 2 OR 3 VW 03/15/2017 | | 8:22 PMHISTORY: FALL.COMPARISON: 03/13/2017FINDINGS:Stable PLIF at T11-T12 and L3-L4 with | | interbody spacers identified at theselevels, without evidence of interval complication. | | Background of mild lumbarspondylosis which is unchanged. 11 mm ossific fragment | | projects over the midpolethe left kidney, new since prior examination. No significant | | colonic stoolretention. No organomegaly. IMPRESSION -No acute findings.Stable PLIF at | | T11-T12 and L3-L4 with interbody spacers identified at theselevels, without evidence of | | interval complication.11 mm calcification projects over the midpole of the left kidney, | | concerning forrenal calculi.Dictated and Signed by: Gavin Thomas MD Electronically | | signed: 03/15/2017 9:48 PM | |the left kidney, new since prior examination. No significant colonic stool | |retention. No organomegaly. | | | |IMPRESSION - | |No acute findings. | | | |Stable PLIF at T11-T12 and L3-L4 with interbody spacers identified at these | |levels, without evidence of interval complication. | | | |11 mm calcification projects over the midpole of the left kidney, concerning for | |renal calculi. | | | |Dictated and Signed by: Gavin Thomas MD | | Electronically signed: 03/15/2017 9:48 PM | + + + +---------+ + [...] | | unspecified | + + | Status post lumbar spinal fusion Arthrodesis status | + + documented in this encounter
--- OUTSIDE RECORDS SUMMARY | ~2019-09-01 | XMS | Encounter Summary ---
Demographics + + + | Address | [address] | | | [place] [address] | + + + | Home Phone | | + + + | Preferred Language | Unknown | + + + | Marital Status | | + + + | Latter-Day Affiliation | Unknown | + + + | Race | Unknown | + + + | Ethnic Group | Unknown | + + + Author + + + | Author | [facility] | | | and [place] | + + + | Organization | [facility] | | | and [place] | + + + | Address | Unknown | + + + | Phone | Unavailable | + + + Support + + + + + | Name | Relationship | Address | Phone | + + + + + | Alma Gramajo | ECON | [address] | | | | | [place] [address] | | + + + + + Care Team Providers + +------+ + | Care Tax Lawyer Name | Role | Phone | + +------+ + | Priyanka Sal PA-C | PCP | | + +------+ + Reason for Visit + + + | Reason | Comments | + + + | Wound Check | Staple removal | + + + Encounter Details +--------+---------+ + + + | Date | Type | Department | Care Team | Description | +--------+---------+ + + + | 02/19/ | Office | [facility] | Emil Garcia, | Encounter for staple | | 2017 | Visit | NEUROSURGERY [address] | DO [address] | removal (Primary | | | | [address] | [address] [place], [place] | Dx) | | | | [place], [place] | [address] | | | | | [address] | | | | | | [phone] | | | +--------+---------+ + + + [...] + + + | Blood Pressure | 130/72 | 02/19/2017 1:47 PM | | | | | PDT | | + + + + + | Pulse | 71 | 02/19/2017 1:47 PM | | | | | PDT | | + + + + + | Temperature | - | - | | + + + + + | Respiratory Rate | 20 | 02/19/2017 1:47 PM | | | | | PDT | | + + + + + | Oxygen Saturation | - | - | | + + + + + | Inhaled Oxygen | - | - | | | Concentration | | | | + + + + + | Weight | 130.6 kg (288 lb) | 02/19/2017 1:47 PM | | | | | PDT | | + + + + + | Height | 188 cm (6' 2") | 02/19/2017 1:47 PM | | | | | PDT | | + + + + + | Body Mass Index | 36.98 | 02/19/2017 1:47 PM | | | | | PDT [...] of this encounter Progress Notes China Guzmán Cert MA - 02/19/2017 1:30 PM PDTStaples removed per protocol. Wound evalua augusto by ROSAMARIA Santos due to scant amount of purulent drainage. Suggestion for Keflex discu ssed with patient by ROSAMARIA Santos. Rx sent to provider for signature documented in this encounter Plan of Treatment Not on filedocumented as of this encounter Visit Diagnoses + + | Diagnosis | + + | Encounter for staple removal - Primary Encounter for removal of sutures | + + documented in this encounter
--- OUTSIDE RECORDS SUMMARY | ~2019-09-01 | XMS | Encounter Summary ---
Demographics + + + | Address | [address] | | | [place] [address] | + + + | Home Phone | | + + + | Preferred Language | Unknown | + + + | Marital Status | | + + + | Temple Affiliation | Unknown | + + + | Race | Unknown | + + + | Ethnic Group | Unknown | + + + Author + + + | Author | [facility] | | | and [place] | + + + | Organization | [facility] | | | and [...] | | | | | [place] [address] | | + + + + + Care Team Providers + +------+ + | Care Tractor Mechanic Helper Name | Role | Phone | + +------+ + | Priyanka Sal PA-C | PCP | | + +------+ + Encounter Details +--------+ + + + + | Date | Type | Department | Care Team | Description | +--------+ + + + + | 05/15/ | Orders Only | [facility] | Adán Oneill | Lumbar radiculopathy | | 2015 | | PHYSIATRY [address] | [address], [address] | (Primary Dx) | | | | [place], | [place], [place] | | | | | [place] [address] | [address] | | | | | [phone] | | | +--------+ + + + [...] 06/04/2016 Bilateral Transforaminal Epidural Steroid Injections | [facility] | | Diagnosis: Lumbar radiculopathy ICD-10 Code M54.16 | [facility] | | Zaheer Gramajo presents to the fluoroscopy suite for [facility] | | fluoroscopically-guided bilateral L3-L4 transforaminal epidural [...] | + + + + + | [facility] | [address] | [place] | [phone] | | [facility] | | [address] | | | - IMAGING | | | | + + + + + documented in this encounter Visit Diagnoses + + | Diagnosis | + + | Lumbar radiculopathy - Primary Thoracic or lumbosacral neuritis or radiculitis, | | unspecified | + + documented in this encounter"
--- OUTSIDE RECORDS SUMMARY | ~2019-09-01 | XMS | Encounter Summary ---
Demographics + + + | Address | [address] | | | [place] [address] | + + + | Home Phone | | + + + | Preferred Language | Unknown | + + + | Marital Status | | + + + | Mu-Ism Affiliation | Unknown | + + + | Race | Unknown | + + + | Ethnic Group | Unknown | + + + Author + + + | Author | [facility] | | | and [place] | + + + | Organization | [facility] | | | and [place] | + + + | Address | Unknown | + + + | Phone | Unavailable | + + + Support + + + + + | Name | Relationship | Address | Phone | + + + + + | Alma Gramajo | ECON | [address] | | | | | [place] [address] | | + + + + + Care Team Providers + +------+ + | Care Family Consumer Science Fcs Teacher Name | Role | Phone | + +------+ + | Priyanka Sal PA-C | PCP | | + +------+ + Encounter Details +--------+ + + + + | Date | Type | Department | Care Team | Description | +--------+ + + + + | 03/13/ | Hospital | [facility] | Emil Garcia, | Osteoarthritis of | | 2017 | Encounter | MED CTR XRAY [address] | DO [address] | spine with | | | | [place] | [address] [place], [place] | radiculopathy, | | | | [place] [address] | [address] | lumbar region; | | | | [phone] | | Status post lumbar | | [...] and lateral views of the lumbosacral | [facility] | | spine. Posterior pedicle screw and magali fusion changes at L3-[facility] | | with interbody graft spacer. [...] [address] | [place] | [phone] | | [facility] | | [address] | | | - IMAGING | | | | + + + + + documented in this encounter Visit Diagnoses + + | Diagnosis | + + | Osteoarthritis of spine with radiculopathy, lumbar region | + + | Status post lumbar spinal fusion Arthrodesis status | + + documented in this encounter"
--- OUTSIDE RECORDS SUMMARY | ~2019-09-01 | XMS | Encounter Summary ---
Demographics + + + | Address | [address] | | | [place] [address] | + + + | Home Phone | | + + + | Preferred Language | Unknown | + + + | Marital Status | | + + + | Samaritan Affiliation | Unknown | + + + | Race | Unknown | + + + | Ethnic Group | Unknown | + + + Author + + + | Author | [facility] | | | and [place] | + + + | Organization | [facility] | | | [...] | | | | | [place] [address] | | + + + + + Care Team Providers + +------+ + | Care Route Sales Person Name | Role | Phone | + +------+ + | Priyanka Sal PA-C | PCP | | + +------+ + Encounter Details +--------+ + + + + | Date | Type | Department | Care Team | Description | +--------+ + + + + | 01/14/ | Orders Only | [facility] [place] | Emil Garcia, | Deep vein thrombosis | | 2017 | | NEUROSURGERY [address] | DO [address] | (DVT) of lower | | | | [address] | [address] [place], [place] | extremity, | | | | [place], [place] | [address] | unspecified | | | | [address] | | chronicity, | | | | [phone] | | unspecified | | | | | | laterality, | | | | | | unspecified vein | | | | | | (HCC) (Primary Dx); | | | | | | Cauda equina | | | | | [...] filedocumented as of this encounter Results XR Chest 2 VW (01/15/2017 10:36 AM PDT) + + | Specimen | + + | | + + + + + | Narrative | Performed At | + + + | CLINICAL INFORMATION: Pre operative clearance. COMPARISON: | [facility] | | 02/11/2016. FINDINGS: Frontal and lateral views of the chest. | [facility] | | Lungs: No focal airspace disease, [...] + | [facility] | [address] | [place] | [phone] | | [facility] | | [address] | | | - IMAGING | | [...] [facility] | | | | | [facility] | | | | | | [facility]ICAL | | | | | | CENTER - | | | | | | LABORATORY | | + +-------+ + + + | Absolute | 6.10 | 1.80 - 8.50 | [facility] | | | Neutrophils | | K/uL | [facility] | | | | | | MEDICAL | | | | | | CENTER - | | | | | | LABORATORY | | + +-------+ + + + | Absolute | 2.30 | 0.60 - 3.20 | [facility] | | | Lymphocytes | | K/uL | [facility] | | | | | | MEDICAL | | | | | | CENTER - | | | | | | LABORATORY | | + +-------+ + + + | Absolute | 0.80 | 0.00 - 1.00 | [facility] | | | Monocytes | | K/uL | [facility] | | | | | | MEDICAL | | | | | | CENTER - | | | | | | LABORATORY | | + +-------+ + + + | Absolute | 0.30 | 0.00 - 0.40 | [facility] | | | Eosinophils | | K/uL | [facility] | [...] | + + + + + | [facility] | [address] | [place] | [phone] | | [facility] | | [address] | | | - LABORATORY | | [...] MD | | | | | | ([id number]) on 01/16/2017 | | | | | [...] + | Diagnosis | + + | Deep vein thrombosis (DVT) of lower extremity, unspecified chronicity, unspecified | | laterality, unspecified vein (HCC) - Primary | + + | Cauda equina syndrome [...]
--- OUTSIDE RECORDS SUMMARY | ~2019-09-01 | XMS | Encounter Summary ---
Demographics + + + | Address | [address] | | | [place] [address] | + + + | Home Phone | | + + + | Preferred Language | Unknown | + + + | Marital Status | | + + + | Tenriism Affiliation | Unknown | + + + | Race | Unknown | + + + | Ethnic Group | Unknown | + + + Author + + + | Author | [facility] | | | and [place] | + + + | Organization | [facility] | | | and [place] | + + + | Address | Unknown | + + + | Phone | Unavailable | + + + Support + + + + + | Name | Relationship | Address | Phone | + + + + + | Alma Gramajo | ECON | [address] | | | | | [place] [address] | | + + + + + Care Team Providers + +------+ + | Care Cook Manager Name | Role | Phone | + +------+ + | Priyanka Sal PA-C | PCP | | + +------+ + Encounter Details +--------+ + + + + | Date | Type | Department | Care Team | Description | +--------+ + + + + | 12/02/ | [facility] | [facility] | Channing Blanchard | S/P lumbar fusion | | 2018 | Encounter | MED CTR XRAY [address] | D, [address] | | | | | [place] | [address] | | | | | [place] [address] | [place], [place] | | | | | [phone] | [address] | | | | | | | [...] LUMBAR SPINE 2 OR | Routin | 12/02/2017 | S/P lumbar fusion | Results for this | | 3 VW | e | 2:11 PM | | procedure are in the | | | | PDT | | results section. | + +--------+ + + + documented in this encounter Results XR Lumbar Spine 2 or 3 Vw (12/02/2017 2:11 PM PDT) + + | Specimen | + + | | + + + + + | Narrative | Performed At | + + + | XR LUMBAR SPINE 2 OR 3 VW 12/02/2017 2:11 PM HISTORY: Postop. | [facility] | | COMPARISON: 05/28/2017 FINDINGS: Posterior and interbody fusion | | | changes at T11-T12 and L3-L4. Intact hardware. Stable grade 1 | | | retrolisthesis of L2 over L3. Question a calculus versus stool | | | projecting over the left renal shadow. No change in position of the | | | interbody graft markers. No change in spinal alignment. No | | | interval compression deformities. Calcification projects over the | | | left renal shadow. IMPRESSION - No radiographic evidence for | | | an interval complication. Dictated and Signed by: Gavin Thomas | | | Electronically signed: 12/02/2017 3:17 PM | | + + + + + | Procedure Note | + + | Raoul, Rad Results In - 12/02/2017 3:20 PM PDT XR LUMBAR SPINE 2 OR 3 VW 12/02/2017 2:11 | | PMHISTORY: Postop.COMPARISON: 05/28/2017FINDINGS: Posterior and interbody fusion changes | | at T11-T12 and L3-L4. Intacthardware. Stable grade 1 retrolisthesis of L2 over L3. | | Question a calculusversus stool projecting over the left renal shadow. No change in | | position of theinterbody graft markers. No change in spinal alignment. No | | intervalcompression deformities. Calcification projects over the left renal | | shadow.IMPRESSION -No radiographic evidence for an interval complication.Dictated and | | Signed by: Gavin Thomas MD Electronically signed: 12/02/2017 3:17 PM | |versus stool projecting over the left renal shadow. No change in position of the | |interbody graft markers. No change in spinal alignment. No interval | |compression deformities. Calcification projects over the left renal shadow. | | | |IMPRESSION - | | | |No radiographic evidence for an interval complication. | | | |Dictated and Signed by: Gavin Thomas MD | | Electronically signed: 12/02/2017 3:17 PM | + + + +---------+ + [...]
--- OUTSIDE RECORDS SUMMARY | ~2019-09-01 | XMS | Encounter Summary ---
Demographics + + + | Address | [address] | | | [place] [address] | + + + | Home Phone | | + + + | Preferred Language | Unknown | + + + | Marital Status | | + + + | Roman Catholic Affiliation | Unknown | + + + | Race | Unknown | + + + | Ethnic Group | Unknown | + + + Author + + + | Author | [facility] | | | and [place] | + + + | Organization | [facility] | | | and [place] | + + + | Address | Unknown | + + + | Phone | Unavailable | + + + Support + + + + + | Name | Relationship | Address | Phone | + + + + + | Alma Gramajo | ECON | [address] | | | | | [place] [address] | | + + + + + Care Team Providers + +------+ + | Care Plumber Pipe Fitting Name | Role | Phone | + [...] | hernia of | [address] | [address] | | | | | right side | [address] | [address] | | | | | without | [place], | [place], | | | | | obstruction | [place] [address] | [place] [address] | | | | | or gangrene | Phone: | Phone: | | | | | | [phone] | [phone] | | | | | | Fax: | Fax: | | | | | | [phone] | [phone] | +--------+ + + + + + Reason for Visit + + + | Reason | Comments | + + + | Groin Pain | | + + + Encounter Details +--------+ + + + + | Date | Type | Department | Care Team | Description | +--------+ + + + + | 07/22/ | Emergency | [facility] | Michael Engel, | Inguinal hernia of | | 2018 | | [facility] CTR EM[facility]Y | MD [address] | right side without | | | | CENTER [address] | [place], [place] | obstruction or | | | | [place], [place] | [address] | gangrene (Primary | | | | [address] | | Dx) | | | | [phone] | | | +--------+ + + + [...] + + + | Blood Pressure | 124/94 | 07/22/2018 1:58 PM | | | | | PST | | + + + + + | Pulse | 62 | 07/22/2018 1:58 PM | | | | | PST | | + + + + + | Temperature | 35.6 C (96 F) | 07/22/2018 1:58 PM | | | | | PST | | + + + + + | Respiratory Rate | 16 | 07/22/2018 1:58 PM | | | | | PST | | + + + + + | Oxygen Saturation | 99% | 07/22/2018 1:58 PM | | | | | PST | | + + + + + | Inhaled Oxygen | - | - | | | Concentration | | | | + + + + + | Weight | - | - | | + + + + + | Height | - | [...] documented as of this encounter Discharge Instructions Carmella Prakash RN - 07/22/2018 AttachmentsThe following attachments cannot be sent through Care Everywhere.Hernia Repair Donal bran (Bolivian)documented in this encounter Medications at Time of [...] as of this encounter Plan of Treatment + + +--------+ + + | Name | Type | Priori | Associated Diagnoses | Order Schedule | | | | ty | | | + + +--------+ + + | * MARKUS FULLER General | Outpatient | Routin | Inguinal hernia of | Ordered: 07/22/2018 | | Surgery [place] - [facility] | Referral | e | right side without | | | Referral | | | obstruction or | | | | | | gangrene | | + + +--------+ + + documented as of this encounter Visit Diagnoses + + | Diagnosis | + + | Inguinal hernia of right side without obstruction or gangrene - Primary | + + documented in this encounter"
--- OUTSIDE RECORDS SUMMARY | ~2019-09-01 | XMS | Encounter Summary ---
Demographics + + + | Address | [address] | | | [place] [address] | + + + | Home Phone | | + + + | Preferred Language | Unknown | + + + | Marital Status | | + + + | Cheondoism Affiliation | Unknown | + + + | Race | Unknown | + + + | Ethnic Group | Unknown | + + + Author + + + | Author | [facility] | | | and [place] | + + + | Organization | [facility] | | | and [...] | | | | | [place] [address] | | + + + + + Care Team Providers + +------+ + | Care Lei Maker Name | Role | Phone | [...] Lumbar | Berhane Ramon | [address] | | | | | radiculopath | [address] | [place], | | | | | y Numbness | [address] | [place] | | | | | and tingling | [address] | [address] | | | | | of left leg | [place], | Phone: | | | | | Left leg | [place] [address] | [phone] | | | | | weakness | Phone: | Fax: | | | | | Procedures | [phone] | [phone] | | | | | MRI Lumbar | Fax: | | | | | | Spine wo | [phone] | | | | | | Contrast [...] | | | | Lumbar | Berhane E, | [address] | | | | | radiculopath | PA-C [address] | [place], | | | | | y Numbness | [address] | [place] | | | | | and tingling | [address] | [address] | | | | | of left leg | [place], | Phone: | | | | | Left leg | [place] [address] | [phone] | | | | | weakness | Phone: | Fax: | | | | | Procedures | [phone] | [phone] | | | | | MRI Lumbar | Fax: | | | | | | Spine wo | [phone] | | | | | | Contrast [...] | +--------+ + + + + | 12/23/ | Hospital | [facility] | Berhane hCavez, | Lumbar | | 2018 | Encounter | MED CTR MRI [address] | PA-C [address] | radiculopathy; | | | | [address] [place], | [address] [place] | Numbness and | | | | [place] [address] | [place] [address] | tingling of left | | | | [phone] | [phone] | leg; Left leg | | | | | | weakness | +--------+ + + + + Social [...] MRI LUMBAR SPINE WO | Routin | 12/23/2017 | Lumbar | Results for this | | CONTRAST | e | 12:49 PM | radiculopathy | procedure are in the | | | | PDT | Numbness and | results section. | | | | | tingling of left leg | | | | | | Left leg weakness | | + +--------+ + + + documented in this encounter Results MRI Lumbar Spine wo [...] severe as detailedabove.Dictated and Signed by: Gavin Thomas, | | Electronically signed: 12/23/2017 1:02 PM [...] or radiculitis, unspecified | + + | Numbness and tingling of left leg Disturbance of skin sensation | + + | Left leg weakness Other musculoskeletal symptoms referable to limbs | + + documented in this encounter"
--- OUTSIDE RECORDS SUMMARY | ~2019-09-01 | XMS | Encounter Summary ---
Demographics + + + | Address | [address] | | | [place] [address] | + + + | Home Phone | | + + + | Preferred Language | Unknown | + + + | Marital Status | | + + + | Evangelical Affiliation | Unknown | + + + | Race | Unknown | + + + | Ethnic Group | Unknown | + + + Author + + + | Author | [facility] | | | and [place] | + + + | Organization | [facility] | | | and [...] | | | | | [place] [address] | | + + + + + Care Team Providers + +------+ + | Care Legal Billing Analyst Name | Role | Phone | + +------+ + | Priyanka Sal PA-C | PCP | | + +------+ + Encounter Details +--------+ + + + + | Date | Type | Department | Care Team | Description | +--------+ + + + + | 12/02/ | [facility] | [facility] | Channing Blanchard | S/P lumbar fusion | | 2018 | Encounter | MED CTR XRAY [address] | | | | | [place] | [address] | | | | | [place] [address] | [place], [place] | | | | | [phone] | [id number] | | | | | | | [...]
--- OUTSIDE RECORDS SUMMARY | ~2019-09-01 | XMS | Encounter Summary ---
Demographics + + + | Address | [address] | | | [place] [address] | + + + | Home Phone | | + + + | Preferred Language | Unknown | + + + | Marital Status | | + + + | Mandaeism Affiliation | Unknown | + + + | Race | Unknown | + + + | Ethnic Group | Unknown | + + + Author + + + | Author | [facility] | | | and [place] | + + + | Organization | [facility] [...] | | | | | [place] [address] | | + + + + + Care Team Providers + +------+ + | Care Farm Mechanic Name | Role | Phone | [...] | | | | | | | PA | | | | | | | ARTHRODESIS | | | | | | | POSTERIOR/PO | | | | | | | STEROLATERAL | | | | | | | LUMBAR PA | | | | | | | LUMBAR SPINE | | | | | | | | | | | | | | FUSION,ANTER | | | | | | | APPRCH PA | | | | | | | [...] + + + + | 02/05/ | Anesthesia | [facility] | Luis Felipe Hewitt MD | | | 2017 | Event | MED CTR OR INTRA OP | [address] | | | | | [address] | [place] | | | | | [place] | [address] | | | | | [address] | | | | | | [phone] | Mark Munguia, | | | | | | [address] | | | | | | [place] | | | | | | [address] | | | | | | | | +--------+ + + + + Anesthesia Record + + + + + | Procedure Name | Responsible | Anesthesia Start | Anesthesia Stop Time | | | Anesthesiologist | Time | | + + + + + | L3-4 Extreme Lateral | Luis Felipe Hewitt MD | 02/05/17 1005 | 02/05/17 1309 | | Interbody Fusion | | | | | (N/A Back) | | | | + + + + + +----+---+ + + | Da | T | Event | Comment | | te | i | | | | | m | | | | | e | | | +----+---+ + + | 06 | 0 | | | | /0 | 9 | | | | 7/ | 4 | | | | 20 | 4 | | | | 17 | | | | +----+---+ + + | | 1 | An Checkout | Pre-use anesthesia machine/equipment checkout. | | | 0 | | | | | 0 | | | | | 5 | | | +----+---+ + + | | 1 | An Start | Reassessment prior to anesthesia induction/procedure. | | | 0 | | | | | 0 | | | | | 5 | | | +----+---+ + + | | 1 | Antibiotic | | | | 0 | Given | | | | 0 | | | | | 5 | | | +----+---+ + + | | 1 | Preoxygenat | | | | 0 | ed | | | | 0 | | | | | 7 | | | +----+---+ + + | | 1 | An | | | | 0 | Induction | | | | 0 | | | | | 9 | | | +----+---+ + + | | 1 | An | | | | 0 | Intubation | | | | 1 | | | | | 4 | | | +----+---+ + + | | 1 | [place] | | | | 0 | 43-degrees | | | | 4 | | | | | 8 | | | +----+---+ + + | | 1 | First | | | | 0 | Inc/Proc St | | | | 5 | | | | | 0 | | | +----+---+ + + | | 1 | [place] off | | | | 2 | | | | | 4 | | | | | 8 | | | +----+---+ + + | | 1 | Breathing | | | | 2 | Spontaneous | | | | 5 | ly | | | | 1 | | | +----+---+ + + | | 1 | Oropharynx | | | | 3 | Suctioned | | | | 0 | | | | | 2 | | | +----+---+ + + | | 1 | Extubated | | | | 3 | Deep | | | | 0 | | | | | 2 | | | +----+---+ + + | | 1 | an stop | | | | 3 | data | | | | 0 | | | | | 2 | | | +----+---+ + + | | 1 | An Stop | Patient handed off to recovery nurse. | | | 0 | | | | | 9 | | | +----+---+ + + +------+ | Meds | +------+ + + + | Name | Total | + + + | lidocaine 2% | 20 mg | + + + | propofol (DIPRIVAN) injection | 300 mg | | (bolus) (20 mL) | | + + + | ondansetron | 4 mg | + + + | dexamethasone | 10 mg | + + + | fentaNYL injection (2 mL) | 100 mcg | + + + | HYDROmorphone | 4 mg | + + + | cisatracurium | 10 mg | + + + | neostigmine | 2 mg | + + + | glycopyrrolate | 0.4 mg | + + + | ceFAZolin in saline (ANCEF) IVPB | 2 g | | 2 g | | + + + | midazolam | 2 mg | + + + | succinylcholine | 120 mg | + + + | magnesium sulfate | 2 g | + + + | ePHEDrine | 15 mg | + + + | sodium chloride 0.9% (NS) | 1,000 mL | | infusion | | + + + | LR (Infusion) | 1,100 mL | + + + + + | Name | + + | N2O Flow Rate (L/Min) | + + | O2 Flow Rate (L/Min) | + + | Insp O2 | + + | Exp DAMIEN | + + | Air Flow Rate (L/Min) | + + + + | No blood administrations on file. | + + +--------+ + + + | Type | Details | Placement | Removal | +--------+ + + + | Airway | Placement Date: (present upon | 02/05/17 1323 by | 02/07/17 1314 by | | | arrival to [facility]); Airway Type: | Riana Conley RN | Christ Downey RN | | | oral; Removal: other (see | | | | | comment); Removal Date: 02/07/17; | | | | | Removal Time: 1314; Additional | | | | | Comments: removed in past | | | +--------+ + + + | Periph | 02/05/17; 0753; Right; Mid; | 02/05/17 0753 by | 02/08/17 1500 by | | eral | Forearm; cjbh-dag-zyjasi catheter | Julianne Saavedra RN | George Torres RN | | IV | system; 18 gauge, 1 1/2 in | | | | | length; Blood Bank; distraction, | | | | | topical anesthetic spray applied, | | | | | tolerated well, appears | | | | | comfortable; lumen/catheter not | | | | | patent, catheter/device intact, | | | | | site symptomatic; 02/08/17; 1500 | | | +--------+ + + + | Airway | Placement Date: 02/05/17; | 02/05/17 1014 by | 02/05/17 1302 by | | | Placement Time: 1014; Mask | Luis Felipe Hewitt MD | Luis Felipe Hewitt MD | | | Ventilation: EZ w/OA; Airway | | | | | Grade: 1; Successful Technique: | | | | | Mac; Laryngoscope Blade Size: 4; | | | | | Airway Type: oral, endotracheal, | | | | | cuffed, disposable; Size: 6.5; | | | | | Airway Tube Secured At: 3; Tube | | | | | Reference Point: lip; Trauma: | | | | | none; Placement Check: bilateral | | | | | chest rise, exhaled CO2 detection | | | | | device; Removal Date: 02/05/17; | | | | | Removal Time: 1302 | | | +--------+ + + + | Urethr | 02/05/17; 1026; indicated due to | 02/05/17 1026 by | 02/05/17 1252 by | | al | specific surgical procedure; All | Hany Barrow RN | Hany Barrow RN | | Cathet | elements; All elements; All | | | | er | elements; indwelling double lumen | | | | | catheter; 100% silicone; 16; | | | | | None; 1; 10; 10; none; drainage | | | | | bag to dependent drainage; short | | | | | term use; 02/05/17; 1252 | | | +--------+ + + + | Read | 02/05/17; 1039; Right; flank; | 02/05/17 1039 by | 02/09/17 1400 by | | only - | healing within expectations; | Hany Barrow RN | George Torres RN | | | 02/09/17; 1400 | | | | Incisi | | | | | on | | | | +--------+ + + + | Drain/ | 02/05/17; 1238; #1; Left; | 02/05/17 1238 by | 02/08/17 1115 by | | Device | posterior; back; collapsible | Hany Barrow RN | George Torres RN | | Site | closed device; 10 fr round drain; | | | | | short term use; 02/08/17; 1115 | | | +--------+ + + + | Read | 02/05/17; 1241; Bilateral; back; | 02/05/17 1241 by | 02/09/17 1400 by | | only - | healing within expectations; | Hany Barrow RN | George Torres RN | | | 02/09/17; 1400 | | | | Incisi | | | | | on | | | | +--------+ + + + | Airway | Placement Date: 02/05/17; | 02/05/17 1310 by | 02/07/17 1313 by | | | Placement Time: 1310; Airway | Riana Conley RN | Christ Downey RN | | | Type: nasal; Removal: other (see | | | | | comment); Removal Date: 02/07/17; | | | | | Removal Time: 1313; Additional | | | | | Comments: removed in past | | | +--------+ + + + [...] in this encounter Administered Medications + +--------+ +------+------+------+ | Medication Order | MAR | Action | Dose | Rate | Site | | | Action | Date | | | | + +--------+ +------+------+------+ | ceFAZolin in saline (ANCEF) | Given | 02/06/20 | 2 g | | | | IVPB 2 g 2 g, Intravenous, | | 17 10:04 | | | | | Administer over 30 Minutes, Prior | | AM PDT | | | | | to Incision, Starting 02/05/17 | | | | | | | at 0728, For 1 dose, Administer | | | | | | | within 1 hour of surgical | | | | | | | incision. Keep in refrigerator., | | | | | | | Pre-op, Indications: Surgical | | | | | | | Prophylaxis | | | | | | + +--------+ +------+------+------+ +---+---+ | | | +---+---+ + +-------+ +------+---+---+ | cisatracurium (NIMBEX) | Given | 02/06/20 | 9 mg | | | | injection Intravenous, PRN, | | 17 11:33 | | | | | Ventilator Dyssynchrony, Starting | | AM PDT | | | | | Fri02/05/17 at 1006, Anesthesia | | | | | | | Intra-op | | | | | | + +-------+ +------+---+---+ +-------+ +------+---+---+ | Given | 02/06/20 | 1 mg | | | | | 17 10:06 | | | | | | AM PDT | | | | +-------+ +------+---+---+ +---+---+ | | | +---+---+ + +-------+ +-------+---+---+ | dexamethasone (DECADRON) 10 | Given | 02/06/20 | 10 mg | | | | mg/mL injection Intravenous, | | 17 10:38 | | | | | PRN, Starting Fri02/05/17 at 1038, | | AM PDT | | | | | Anesthesia Intra-op | | | | | | + +-------+ +-------+---+---+ +---+---+ | | | +---+---+ + +-------+ +-------+---+---+ | ePHEDrine 50 mg/mL injection | Given | 02/06/20 | 15 mg | | | | PRN, Starting Fri02/05/17 at 1052, | | 17 10:52 | | | | | Anesthesia Intra-op | | AM PDT | | | | + +-------+ +-------+---+---+ +---+---+ | | | +---+---+ + +-------+ +---------+---+---+ | fentaNYL (PF) injection | Given | 02/06/20 | 100 mcg | | | | Intravenous, PRN, Pain, Starting | | 17 10:06 | | | | | Fri02/05/17 at 1006, Anesthesia | | AM PDT | | | | | Intra-op | | | | | | + +-------+ +---------+---+---+ +---+---+ | | | +---+---+ + +-------+ +--------+---+---+ | glycopyrrolate (RADHA) | Given | 02/06/20 | 0.2 mg | | | | injection Intravenous, PRN, | | 17 12:47 | | | | | Secretions, Starting 02/05/17 | | PM PDT | | | | | at 1243, Anesthesia Intra-op | | | | | | + +-------+ +--------+---+---+ +-------+ +--------+---+---+ | Given | 02/06/20 | 0.2 mg | | | | | 17 12:43 | | | | | | PM PDT | | | | +-------+ +--------+---+---+ +---+---+ | | | +---+---+ + +-------+ +------+---+---+ | HYDROmorphone (DILAUDID) 2 | Given | 02/06/20 | 2 mg | | | | mg/mL injection Intravenous, | | 17 1:01 | | | | | PRN, Pain, Starting Fri02/05/17 at | | PM PDT | | | | | 1040, Anesthesia Intra-op | | | | | | + +-------+ +------+---+---+ +-------+ +------+---+---+ | Given | 02/06/20 | 1 mg | | | | | 17 12:04 | | | | | | PM PDT | | | | +-------+ +------+---+---+ | Given | 02/06/20 | 1 mg | | | | | 17 10:40 | | | | | | AM PDT | | | | +-------+ +------+---+---+ +---+---+ | | | +---+---+ + +---------+ +---+---+---+ | lactated ringers (LR) infusion | New Bag | 02/06/20 | | | | | Intravenous, CONTINUOUS PRN, | | 17 12:40 | | | | | Starting Fri02/05/17 at 1149, | | PM PDT | | | | | Anesthesia Intra-op | | | | | | + +---------+ +---+---+---+ +---------+ +---+---+---+ | New Bag | 02/06/20 | | | | | | 17 11:49 | | | | | | AM PDT | | | | +---------+ +---+---+---+ +---+---+ | | | +---+---+ + +-------+ +-------+---+---+ | lidocaine (PF) 2% injection | Given | 02/06/20 | 20 mg | | | | Intravenous, PRN, Starting Wed | | 17 10:09 | | | | | 02/05/17 at 1009, Anesthesia | | AM PDT | | | | | Intra-op | | | | | | + +-------+ +-------+---+---+ +---+---+ | | | +---+---+ + +-------+ +-----+---+---+ | magnesium sulfate 500 mg/mL | Given | 02/06/20 | 2 g | | | | injection Intravenous, PRN, | | 17 10:50 | | | | | Starting Fri02/05/17 at 1050, | | AM PDT | | | | | Anesthesia Intra-op | | | | | | + +-------+ +-----+---+---+ +---+---+ | | | +---+---+ + +-------+ +------+---+---+ | midazolam (VERSED) 1 mg/mL | Given | 02/06/20 | 2 mg | | | | injection Intravenous, PRN, | | 17 10:04 | | | | | Anxiety, Starting Fri02/05/17 at | | AM PDT | | | | | 1004, Anesthesia Intra-op | | | | | | + +-------+ +------+---+---+ +---+---+ | | | +---+---+ + +-------+ +------+---+---+ | neostigmine (PROSTIGMIN) 1 | Given | 02/06/20 | 1 mg | | | | mg/mL injection Intravenous, | | 17 12:47 | | | | | PRN, Starting Fri02/05/17 at 1243, | | PM PDT | | | | | Anesthesia Intra-op | | | | | | + +-------+ +------+---+---+ +-------+ +------+---+---+ | Given | 02/06/20 | 1 mg | | | | | 17 12:43 | | | | | | PM PDT | | | | +-------+ +------+---+---+ +---+---+ | | | +---+---+ + +-------+ +------+---+---+ | ondansetron (ZOFRAN) injection | Given | 02/06/20 | 4 mg | | | | Intravenous, PRN, Nausea, | | 17 12:34 | | | | | Vomiting, Starting 02/05/17 at | | PM PDT | | | | | 1234, Anesthesia Intra-op | | | | | | + +-------+ +------+---+---+ +---+---+ | | | +---+---+ + +-------+ +--------+---+---+ | propofol (DIPRIVAN) injection | Given | 02/06/20 | 300 mg | | | | Intravenous, PRN, Starting Wed | | 17 10:09 | | | | | 02/05/17 at 1009, Anesthesia | | AM PDT | | | | | Intra-op | | | | | | + +-------+ +--------+---+---+ +---+---+ | | | +---+---+ + +---------+ +---+-------+---+ | sodium chloride 0.9% (NS) | New Bag | 02/08/20 | | 100 | | | infusion at 100 mL/hr, | | 17 6:09 | | mL/hr | | | Intravenous, CONTINUOUS, Starting | | PM PDT | | | | | 02/05/17 at 0745 | | | | | | + +---------+ +---+-------+---+ + + +---------+-------+---+ | Restarted | 02/08/20 | 100 mLs | 100 | | | | 17 11:52 | | mL/hr | | | | AM PDT | | | | + + +---------+-------+---+ | New Bag | 02/06/20 | | 100 | | | | 17 5:00 | | mL/hr | | | | PM PDT | | | | + + +---------+-------+---+ +---+---+ | | | +---+---+ + +-------+ +--------+---+---+ | succinylcholine (ANECTINE) | Given | 02/06/20 | 120 mg | | | | injection Intravenous, PRN, | | 17 10:09 | | | | | Starting 02/05/17 at 1009, | | AM PDT | | | | | Anesthesia Intra-op | | | | | | + +-------+ +--------+---+---+ +---+---+ | | | +---+---+ documented in this encounter"
--- OUTSIDE RECORDS SUMMARY | ~2019-09-01 | XMS | Encounter Summary ---
Demographics + + + | Address | [address] | | | [place] [address] | + + + | Home Phone [...] [facility] | | | and [...] | | | | | [place] [address] | | + + + + + Care Team Providers + +------+ + | Care Negative Cleaner Name | Role | Phone | + [...] + + | 02/19/ | Office | [facility] | Emil Garcia, | Encounter for staple | | 2017 | Visit | NEUROSURGERY [address] | DO [address] | removal (Primary | | | | [address] | [address] [place], [place] | Dx) | | | | [place], [place] | [address] | | | | | [address] | | | | | | [phone] | | | +--------+---------+ + + + [...]
--- OUTSIDE RECORDS SUMMARY | ~2019-09-01 | XMS | Encounter Summary ---
Demographics + + + | Address | [address] | | | [place] [address] | + + + | Home Phone [...] | Organization | [facility] | | [...] | | | | | [place] [address] | | + + + + + Care Team Providers + +------+ + | Care Wheel Loader Operator Name | Role | Phone | + +------+ + | Priyanka Sal PA-C | PCP | | + +------+ + Reason for Visit + + + | Reason | Comments | + + + | Flank Pain | | + + + Encounter Details +--------+ + + + + | Date | Type | Department | Care Team | Description | +--------+ + + + + | 12/09/ | Emergency | [facility] | Syed, | Left nephrolithiasis | | 2018 | | [facility] | MD Za[address] | (Primary Dx) | | | | CENTER [address] | [address] | | | | | [place] | [place] [address] | | | | | [address] | [phone] | | | | | [phone] | | | +--------+ + + + [...] + + + | Blood Pressure | 113/75 | 12/09/2017 11:45 AM | | | | | PDT | | + + + + + | Pulse | 68 | 12/09/2017 11:25 AM | | | | | PDT | | + + + + + | Temperature | 36.1 C (96.9 F) | 12/09/2017 8:14 AM | | | | | PDT | | + + + + + | Respiratory Rate | 16 | 12/09/2017 8:14 AM | | | | | PDT | | + + + + + | Oxygen Saturation | 97% | 12/09/2017 11:25 AM | | | | | PDT | | + + + + + | Inhaled Oxygen | - | - | | | Concentration | | | | + + + + + | Weight | 136.1 kg (300 lb) | 12/09/2017 8:14 AM | | | | | PDT | | + + + + + | Height | 188 cm (6' 2") | 12/09/2017 8:14 AM | | | | | PDT | | + + + + + | Body Mass Index | 38.52 | 12/09/2017 8:14 AM | | | | | PDT [...] as of this encounter Discharge Instructions Instructions Zaheer Lynch MD - 12/09/2017Motrin for discomfort, if not sufficient sh e can use the pain medications prescribed. Push fluids. Follow-up with Dr. Elizondo give them a call if you have not heard from them by Friday of next week. Return for any other co ncerns. Thank you for visiting [facility], Emergency Department. Please follow up with your primary care provider in the next 1-3 days unless otherwise spec ified. If you review your results on "My Charts" and there happens to be any concerns or abnormali ties that you have a question about, please follow up with your primary care provider to dis cuss these results. Please read all informational handouts and medication instructions, if provided. Please be aware that although we feel you are safe for discharge at this time, disease proc esses are dynamic and your condition may change. If you have any significant concerns about your condition that you fear may be emergent in nature, please return for re-evaluation. Changes in the disease process may allow certain conditions to be detected at a different t andrzej. You would not be released today if there was evidence of an emergent medical or surgica l condition that would benefit from admission to the hospital or emergent surgery. Although this emergency department is staffed with highly trained physicians that are board certified in emergency medicine, unfortunately not all significant problems are detectable during the time of evaluation. This is why it is important for you to return if significantly concerne d, or otherwise follow up with your primary care provider for re-evaluation. documented in this encounter Medications at Time [...] + +--------+ + + + | CT ABDOMEN PELVIS WO | STAT | 12/09/2017 | | Results for this | | CONTRAST | | 9:49 AM | | procedure are in the | | | | PDT | | results section. | + +--------+ + + + | POCT URINALYSIS, | STAT | 12/09/2017 | | Results for this | | AUTO WITH CONF | | 9:01 AM | | procedure are in the | | | | PDT | | results section. | + +--------+ + + + | CBC WITH | STAT | 12/09/2017 | | Results for this | | DIFFERENTIAL | | 8:26 AM | | procedure are in the | | | | PDT | | results section. | + +--------+ + + + | COMPREHENSIVE | STAT | 12/09/2017 | | Results for this | | METABOLIC PANEL | | 8:26 AM | | procedure are in the | | | | PDT | | results section. | + +--------+ + + + documented in this encounter Results CT Abdomen Pelvis wo Contrast (12/09/2017 9:49 AM PDT) + + | Specimen | + + | | + + + + + | Narrative | Performed At | + + + | UNENHANCED CT ABDOMEN AND PELVIS 12/09/2017 9:49 AM CLINICAL | [facility] | | HISTORY: FLANK PAIN Left Hematuria COMPARISON: Lumbar | | | radiography December 02, lumbar MRI April 2016, chest CT August and | | | May 2013 TECHNIQUE: Axial unenhanced images are performed | | | through the abdomen and pelvis. Coronal and sagittal reformations | | | are also performed. ABDOMEN FINDINGS: Minimally imaged lung | | | bases are unremarkable. Portions of the liver, gastric fundus and | | | spleen are not imaged. Imaged liver and spleen have an unremarkable | | | unenhanced appearance, along with the pancreas, adrenal glands and | | | right kidney. The gallbladder is contracted and not well evaluated. | | | No biliary ductal dilation is visible. There is a 12.5 mm ovoid | | | calculus centrally in the left renal sinus, with mild to moderate | | | dilation of the adjacent upper pole collecting system suggested. An | | | additional tiny calculus is present inferiorly in the left renal | | | sinus, without dilation of the collecting system in this region. | | | There is no visible ureteral or bladder calculus or hydroureter. | | | There is mild left-sided perinephric stranding. The stomach, | | | bowel and appendix are unremarkable without evidence of obstruction or | | | visible inflammation. No free air, ascites, pathologic lymph node | | | enlargement or hernia is evident. Interbody and posterior magali and | | | pedicle screw fusion hardware remains in position at T11-12, and | | | separately at L3-4, and appears stable and intact. Osseous bridging | | | of the disc spaces is suggested at the level of the interbody | | | prostheses. Bones and soft tissues are otherwise unremarkable. | | | PELVIS FINDINGS: The bladder is mostly decompressed and grossly | | | unremarkable otherwise. The prostate and seminal vesicles are | | | unremarkable. A fat-containing right inguinal hernia is partially | | | imaged. No free air, ascites or pathologic lymph node enlargement | | | is evident. Small sclerotic foci in the right acetabular roof and | | | left femoral head favor bone islands. IMPRESSION - 1. 12.5 | | | MM CENTRAL LEFT RENAL CALCULUS WITH MILD TO MODERATE DILATION OF THE | | | UPPER POLE COLLECTING SYSTEM, CONCERNING FOR INFUNDIBULAR OBSTRUCTION. | | | AN ADDITIONAL TINY INFERIOR LEFT RENAL CALCULUS IS PRESENT. | | | THERE IS NO VISIBLE URETERAL CALCULUS OR HYDROURETER. 2. | | | FAT-CONTAINING RIGHT INGUINAL HERNIA. Images were provided for | | | interpretation on December 09, 2017 at 0950 hours. Results were | | | finalized at 1005 hours. Dictated and Signed by: Juan Ramires MD | | | Electronically signed: 12/09/2017 10:04 AM | | + + + + + | Procedure Note | + + | Raoul, Rad Results In - 12/09/2017 10:07 AM PDT UN[address]ED CT ABDOMEN AND PELVIS | | 12/09/2017 9:49 AM CLINICAL HISTORY: FLANK PAIN LeftHematuria COMPARISON: Lumbar | | radiography December 02, lumbar MRI April 2016, chest CTDecember and May 2013 | | TECHNIQUE: Axial unenhanced images are performed through the abdomen and pelvis. Coronal | | and sagittal reformations are also performed. ABDOMEN FINDINGS: Minimally imaged lung | | bases are unremarkable. Portions ofthe liver, gastric fundus and spleen are not | | imaged. Imaged liver and spleenhave an unremarkable unenhanced appearance, along with | | the pancreas, adrenalglands and right kidney. The gallbladder is contracted and not | | well evaluated. No biliary ductal dilation is visible. There is a 12.5 mm ovoid | | calculuscentrally in the left renal sinus, with mild to moderate dilation of theadjacent | | upper pole collecting system suggested. An additional tiny calculus ispresent | | inferiorly in the left renal sinus, without dilation of the collectingsystem in this | | region. There is no visible ureteral or bladder calculus orhydroureter. There is mild | | left-sided perinephric stranding. The stomach,bowel and appendix are unremarkable | | without evidence of obstruction or visibleinflammation. No free air, ascites, | | pathologic lymph node enlargement or herniais evident. Interbody and posterior magali and | | pedicle screw fusion hardwareremains in position at T11-12, and separately at L3-4, and | | appears stable andintact. Osseous bridging of the disc spaces is suggested at the level | | of theinterbody prostheses. Bones and soft tissues are otherwise unremarkable. PELVIS | | FINDINGS: The bladder is mostly decompressed and grossly unremarkableotherwise. The | | prostate and seminal vesicles are unremarkable. Afat-containing right inguinal hernia | | is partially imaged. No free air, ascitesor pathologic lymph node enlargement is | | evident. Small sclerotic foci in theright acetabular roof and left femoral head favor | | bone islands. IMPRESSION - 1. 12.5 MM CENTRAL LEFT RENAL CALCULUS WITH MILD TO | | MODERATE DILATION OF THEUPPER POLE COLLECTING SYSTEM, CONCERNING FOR INFUNDIBULAR | | OBSTRUCTION. ANADDITIONAL TINY INFERIOR LEFT RENAL CALCULUS IS PRESENT. THERE IS NO | | VISIBLEURETERAL CALCULUS OR HYDROURETER.2. FAT-CONTAINING RIGHT INGUINAL HERNIA.Images | | were provided for interpretation on December 09, 2017 at 0950 hours. Results were finalized | | at 1005 hours.Dictated and Signed by: Juan Ramires MD Electronically signed: 12/09/2017 | | 10:04 AM | |fat-containing right inguinal hernia is partially imaged. No free air, ascites | |or pathologic lymph node enlargement is evident. Small sclerotic foci in the | |right acetabular roof and left femoral head favor bone islands. | | | |IMPRESSION - | |1. 12.5 MM CENTRAL LEFT RENAL CALCULUS WITH MILD TO MODERATE DILATION OF THE | |UPPER POLE COLLECTING SYSTEM, CONCERNING FOR INFUNDIBULAR OBSTRUCTION. AN | |ADDITIONAL TINY INFERIOR LEFT RENAL CALCULUS IS PRESENT. THERE IS NO VISIBLE | |URETERAL CALCULUS OR HYDROURETER. | | | |2. FAT-CONTAINING RIGHT INGUINAL HERNIA. | | | |Images were provided for interpretation on December 09, 2017 at 0950 hours. | |Results were finalized at 1005 hours. | | | |Dictated and Signed by: Juan Ramires MD | | Electronically signed: 12/09/2017 10:04 AM | + + + +---------+ + + | Performing | Address | City/State/Zipcode | Phone Number | | Organization | | | | + +---------+ + + | [facility] | | | | + +---------+ + + POCT Urinalysis Dipstick Automated (12/09/2017 9:01 AM PDT) + + + + + [...] + + + + | Bilirubin, | 1+ (A) | Negative | | | | UA, POC | | | | | + + + + + + | Ketones, | Negative | Negative, 100 | | | | UA, POC | | mg/dL | | | + + + + + + | Specific | 1.030 | 1.001 - 1.030 | | | | Mcdonald, | | | | | | UA, POC | | | | | + + + + + + | Blood, UA, | Trace Lysed (A) | Negative | | | | POC | | | | | + + + + + + | pH, UA, POC | 5.5 | 5.0, 6.0, 7.0, | | | | | | 8.0, 5.5, 6.5, | | | | | | 7.5 | | | + + + + + + | Protein, | Trace (A) | Negative | | | | UA, POC | | | | | + + + + + + | Urobilinoge | 1.0 E.U./dL | 0.2, Negative, | | | | [...] + + | Urine | + + Comprehensive Metabolic Panel (12/09/2017 8:26 AM PDT) + + + + + + | Component | Value | Ref Range | Performed | Pathologist | | | | | At | Signature | + + + + + + | Na | 140 | 136 - 149 | [facility] | | | | | mmol/L | [facility] | | | | | | [facility] | | | | | | [facility]ENTER - | | | | | | LABORATORY | | + + + + + + | K | 3.4 (L) | 3.5 - 5.1 | [facility] | | | | | mmol/L | [facility] | | | | | | [facility] | | | | | | CENTER - | | | | | | LABORATORY | | + + + + + + | Cl | 105 | 98 - 109 mmol/L | [facility] | | | | | | [facility] | | | | | | [facility] | | | | | | C[facility] - | | | | | | LABORATORY | | + + + + + + | CO2 | 27 | 24 - 31 mmol/L | [facility] | | | | | | [facility] | | | | | | [facility] | | | | | | CENTER - | | | | | | LABORATORY | | + + + + + + | Anion Gap | 8 | 3 - 16 mmol/L | [facility] | | | | | | [facility] | | | | | | [facility] | | | | | | CENTER - | | | | | | LABORATORY | | + + + + + + | Glucose | 101 | 70 - 109 mg/dL | [facility] | | | | | | [facility] | | [facility] | | | [facility] | | | | | | CENTER - | | | | | | LABORATORY | | + + + + + + | BUN | 15 | 7 - 18 mg/dL | [facility] | | | | | | [facility] | | | | | | [facility] | | | | | | CENTER - | | | | | | LABORATORY | | + + + + + + | Creatinine | 1.11 | 0.60 - 1.30 | [facility] | | | | | mg/dL | [facility] | | | | | | MEDICAL | | | | | | CENTER - | | | | | | LABORATORY | | + + + + + + | eGFR if not | >60Comment: GLOMERULAR | >=60 | [facility] | | | | FILTRATION | mL/min/1.73m2 | [facility] | | | [place] [facility] | RATE,ESTIMATED | | MEDICAL | | | | mL/min/1.56b0Sfyp than | | CENTER - | | | | 60 Chronic kidney | | LABORATORY | | | | disease,if found over a | | | | | | 3-month period.Less than | | | | | | 15 Kidney failureFor | | | | | | | | | | | | Americans,multiply the | | | | | | calculated GFR by 1.21. | | | | | | | | | | + + + + + + | Calcium | 8.9 | 8.3 - 10.5 | [facility] | | | | | mg/dL | [facility] | | | | | | MEDICAL | | | | | | CENTER - | | | | | | LABORATORY | | + + + + + + | Albumin | 4.1 | 3.2 - 5.0 g/dL | [facility] | | | | | | [facility] | | | | | | MEDICAL | | | | | | CENTER - | | | | | | LABORATORY | | + + + + + + | Bilirubin | 0.7Comment: This is an | 0.1 - 1.5 mg/dL | [facility] | | | Total | appended report. These | | [facility] | | | | results have been | | MEDICAL | | | | appended to a previously | | CENTER - | | | | preliminary verified | | LABORATORY | | | | report. | | | | + + + + + + | Total | 6.7 | 6.0 - 7.8 g/dL | [facility] | | | Protein | | | [facility] | | | | | | MEDICAL | | | | | | CENTER - | | | | | | LABORATORY | | + + + + + + | AST | 21Comment: This is an | 10 - 42 U/L | [facility] | | | | appended report. These | | [facility] | | | | results have been | | MEDICAL | | | | appended to a previously | | CENTER - | | | | preliminary verified | | LABORATORY | | | | report. | | | | + + + + + + | ALT | 17Comment: This is an | 6 - 45 U/L | [facility] | | | | appended report. These | | [facility] | | | | results have been | | MEDICAL | | | | appended to a previously | | CENTER - | | | | preliminary verified | | LABORATORY | | | | report. | | | | + + + + + + | Alkaline | 61Comment: This is an | 40 - 110 U/L | [facility] | | | Phosphatase | appended report. These | | [facility] | | | | results have been | | MEDICAL | | | | appended to a previously | | CENTER - | | | | preliminary verified | | LABORATORY | | | | report. | | | | + + + + + + | Globulin | 2.6 | 2.1 - 3.8 g/dL | [facility] | | | | | | [facility] | | | | | | [facility]ICAL | | | | | | CENTER - | | | | | | LABORATORY | | + + + + + + | Albumin/Shelly | 1.6 | 0.8 - 2.0 | [facility] | | | bulin Ratio | | | [facility] | | | | | | [facility]ICAL | | | | | | CENTER - | | | | | | LABORATORY | | + + + + + + | BUN/Creatin | 13.5 | | [facility] | | | ine Ratio | | | [facility] | | [...] + + | [facility] | [address] | [place] | [phone] | | [facility] | | [address] | | | - LABORATORY | | | | + + + + + CBC with Differential (12/09/2017 8:26 AM PDT) + +-------+ + + + | Component | Value | Ref Range | Performed | Pathologist | | | | | At | Signature | + +-------+ + + + | WBC | 8.4 | 4.0 - 11.0 K/uL | [facility] | | | | | | [facility] | | | | | | MEDICAL | | | | | | CENTER - | | | | | | LABORATORY | | + +-------+ + + + | RBC | 4.86 | 4.30 - 5.70 | [facility] | | | | | M/uL | [facility] | | | | | | MEDICAL | | | | | | CENTER - | | | | | | LABORATORY | | + +-------+ + + + | Hemoglobin | 15.1 | 13.5 - 18.0 | [facility] | | | | | g/dL | [facility] | | | | | | MEDICAL | | | | | | CENTER - | | | | | | LABORATORY | | + +-------+ + + + | Hematocrit | 43.3 | 40.0 - 51.0 % | [facility] | | | | | | [facility] | | | | | | [facility]ICAL | | | | | | CENTER - | | | | | | LABORATORY | | + +-------+ + + + | MCV | 89.0 | 83.0 - 101.0 fL | [facility] | | | | | | [facility] | | | | | | [facility]ICAL | | | | | | CENTER - | | | | | | LABORATORY | | + +-------+ + + + | MCH | 31.0 | 28.0 - 35.0 pg | [facility] | | | | | | [facility] | | | | | | MEDICAL | | | | | | CENTER - | | | | | | LABORATORY | | + +-------+ + + + | MCHC | 34.8 | 32.0 - 36.0 | [facility] | | | | | g/dL | [facility] | | | | | | MEDICAL | | | | | | CENTER - | | | | | | LABORATORY | | + +-------+ + + + | RDW-CV | 13.9 | <15.0 % | [facility] | | | | | | [facility] | | | | | | [facility] | | | | | | CENTER - | | | | | | LABORATORY | | + +-------+ + + + | Platelet | 186 | 140 - 440 K/uL | [facility] | | | Count | | | [facility] | | | | | | [facility]ICAL | | | | | | CENTER - | | | | | | LABORATORY | | + +-------+ + + + | MPV | 9.2 | fL | [facility] | | | | | | [facility] | | | | | | [facility] | | | | | | CENTER - | | | | | | LABORATORY | | + +-------+ + + + | % | 65.3 | 45.0 - 82.0 % | [facility] | | | Neutrophils | | | [facility] | | | | | | MEDICAL | | | | | | CENTER - | | | | | | LABORATORY | | + +-------+ + + + | % | 22.1 | 20.0 - 45.0 % | [facility] | | | Lymphocytes | | | [facility] | | | | | | MEDICAL | | | | | | CENTER - | | | | | | LABORATORY | | + +-------+ + + + | % Monocytes | 9.2 | 4.0 - 12.0 % | [facility] | | | | | | [facility] | | | | | | [facility] | | | | | | CENTER - | | | | | | LABORATORY | | + +-------+ + + + | % | 2.6 | 0.0 - 5.0 % | [facility] | | | Eosinophils | | | [facility] | | | | | | MEDICAL | | | | | | CENTER - | | | | | | LABORATORY | | + +-------+ + + + | % Basophils | 0.8 | 0.0 - 1.0 % | [facility] | | | | | | [facility] | | | | | | [facility] | | | | | | CENTER - | | | | | | LABORATORY | | + +-------+ + + + | Absolute | 5.50 | 1.80 - 8.50 | [facility] | | | Neutrophils | | K/uL | [facility] | | | | | | [facility]ICAL | | | | | | CENTER - | | | | | | LABORATORY | | + +-------+ + + + | Absolute | 1.80 | 0.60 - 3.20 | [facility] | | | Lymphocytes | | K/uL | [facility] | [...] +-------+ + + + | Absolute | 0.20 | 0.00 - 0.40 | [facility] | | | Eosinophils | | K/uL | [facility] | | | | | | [facility]ICAL | | | | | | CENTER - | | | | | | LABORATORY | | + +-------+ + + + | Absolute | 0.10 | 0.00 - 0.10 | [facility] | | | Basophils | | K/uL | [facility] | | [...] [address] | [place] | [phone] | | [facility] | | [address] | | | - LABORATORY | | | | + + + + + documented in this encounter Visit Diagnoses + + | Diagnosis | + + | Left nephrolithiasis - Primary | + + documented in this encounter Administered Medications + +--------+ +-------+------+------+ | Medication Order | MAR | Action | Dose | Rate | Site | | | Action | Date | | | | + +--------+ +-------+------+------+ | ketorolac (TORADOL) injection | Given | 12/10/19 | 30 mg | | | | 30 mg 30 mg, Intravenous, ONCE, | | 18 11:35 | | | | | 12/09/17 at 1130, For 1 dose | | AM PDT | | | | + +--------+ +-------+------+------+ +---+---+ | | | +---+---+ documented in this encounter
--- OUTSIDE RECORDS SUMMARY | ~2019-09-01 | XMS | Encounter Summary ---
Demographics + + + | Address | [address] | | | [place] [address] | + + + | Home Phone | | + + + | Preferred Language | Unknown | + + + | Marital Status | | + + + | Mormon Affiliation | Unknown | + + + | Race | Unknown | + + + | Ethnic Group | Unknown | + + + Author + + + | Author | [facility] | | | and [place] | + + + | Organization | [facility] | | | and [place] | + + + | Address | Unknown | + + + | Phone | Unavailable | + + + Support + + + + + | Name | Relationship | Address | Phone | + + + + + | Alma Gramajo | ECON | [address] | | | | | [place] [address] | | + + + + + Care Team Providers + +------+ + | Care Painter Touch Up Name | Role | Phone | + [...] + + | 02/10/ | Emergency | [facility] | Chace Pisano, | Acute bronchitis, | | 2016 | | [facility] | [place] [address] [place] | unspecified organism | | | | [address] | [place] | (Primary Dx) | | | | [place], [place] | [address] | | | | | [address] | | | | | | [phone] | | | +--------+ + + + [...]
--- OUTSIDE RECORDS SUMMARY | ~2019-09-01 | XMS | Encounter Summary ---
Demographics + + + | Address | [address] | | | [place] [address] | + + + | Home Phone | | + + + | Preferred Language | Unknown | + + + | Marital Status | | + + + | Buddhism Affiliation | Unknown | + + + | Race | Unknown | + + + | Ethnic Group | Unknown | + + + Author + + + | Author | [facility] | | | and [place] | + + + | Organization | [facility] | | | and [place] | + + + | Address | Unknown | + + + | Phone | Unavailable | + + + Support + + + + + | Name | Relationship | Address | Phone | + + + + + | Alma Gramajo | ECON | [address] | | | | | [place] [address] | | + + + + + Care Team Providers + +------+ + | Care Pharmaceutical Salesperson Name | Role | Phone | + +------+ + | Priyanka Sal PA-C | PCP | | + +------+ + Reason for Visit + + + | Reason | Comments | + + + | Foot Pain | | + + + Encounter Details +--------+ + + + + | Date | Type | Department | Care Team | Description | +--------+ + + + + | 01/21/ | Emergency | [facility] | Ronald Louis | Foot infection | | 2015 | | [facility] | MD [address] [address] | (Primary Dx); Left | | | | CENTER [address] | [address] [place] | foot infection | | | | [place], [place] | [place] [address] | | | | | [address] | [phone] | | | | | [phone] | | | +--------+ + + + [...] + + + | Blood Pressure | 122/77 | 01/21/2015 7:31 PM | | | | | PDT | | + + + + + | Pulse | 56 | 01/21/2015 7:31 PM | | | | | PDT | | + + + + + | Temperature | 37.1 C (98.8 F) | 01/21/2015 7:19 PM | | | | | PDT | | + + + + + | Respiratory Rate | 118 | 01/21/2015 7:31 PM | | | | | PDT | | + + + + + | Oxygen Saturation | 94% | 01/21/2015 7:31 PM | | | | | PDT | | + + + + + | Inhaled Oxygen | - | - | | | Concentration | | | | + + + + + | Weight | 127 kg (280 lb) | 01/21/2015 7:19 PM | | | | | PDT | | + + + + + | Height | 188 cm (6' 2.02") | 01/21/2015 7:19 PM | | | | | PDT | | + + + + + | Body Mass Index | 35.93 | 01/21/2015 7:19 PM | | | | | PDT | | + + + + + documented in this encounter Discharge Instructions Instructions Ronald Louis MD - 01/21/2015Take Vicodin as needed for pain Take a clindamycin pill at 1:00 in the morning Return here at 8:00 in the morning for your next dose of IV antibiotics documented in this encounter Medications at Time of Discharge + + + +---------+ + + | Medication | Sig | Dispensed | Refills | Start | End Date | | | | | | Date | | + + + +---------+ + + | clindamycin | Take 1 capsule | 30 | 0 | 01/22/20 | | | (CLEOCIN) 300 MG | assisted between each | capsule | | 15 | 6 | | capsule | IV antibiotic dose. | | | | | | | This will be | | | | | | | roughly at 1 AM and | | | | | | | 1 PM each day | | | | | + + + +---------+ + + | cyclobenzaprine | | [...] + + + +---------+ + + | warfarin | Take 10 mg by mouth | | 0 | | | | (COUMADIN) 10 mg | Daily. Axel Cochran, | | | | 6 | | tablet | Sun | | | | | + + + +---------+ + + | warfarin | Take 7.5 mg by mouth | | 0 | | | | (COUMADIN) 7.5 mg | Daily. Twyla Poon, | | | | 6 | | tablet | Alphonso Sheikh | | | | | + + + +---------+ + + documented as of this encounter Plan of Treatment Not on filedocumented as of this encounter Procedures + +--------+ + + + | Procedure Name | Priori | Date/Time | Associated Diagnosis | Comments | | | ty | | | | + +--------+ + + + | XR TOE LEFT 2 + VW | STAT | 01/21/2015 | | Results for this | | | | 8:14 PM | | procedure are in the | | | | PDT | | results section. | + +--------+ + + + | HARJEET ROSSI, | STAT | 01/21/2015 | | Results for this | | SMEAR | | 7:56 PM | | procedure are in the | | | | PDT | | results section. | + +--------+ + + + documented in this encounter Results XR Toe Left 2 + Vw (01/21/2015 8:14 PM PDT) + + | Specimen | + + | | + + + + + | Narrative | Performed At | + + + | XR TOE LEFT 2 + VW. 01/21/2015 8:03 PM HISTORY: FOOT PAIN . | [facility] | | COMPARISON: None available. FINDINGS: Degenerative change at | | | the first MTP joint, including mild joint space narrowing, spurring, | | | and joint space narrowing. No radiographic evidence of acute | | | fracture or dislocation. Dorsal and plantar calcaneal enthesophytes | | | are present. An os trigonum is present. Linear lucency projecting | | | through the medial sesamoid at the first MTP joint . Soft tissue | | | swelling, predominantly at the forefoot. IMPRESSION - Linear | | | lucency projecting through the medial sesamoid bone at the first MTP | | | joint, as might be seen with fracture versus congenital variant. | | | Recommend correlation with the patient's pain. Soft tissue | | | swelling, predominantly in the forefoot. Dictated and Signed by: | | | Rico Landesr MD Electronically signed: 01/22/2015 6:43 PM | | + + + + + | Procedure Note | + + | Raoul, Rad Results In - 01/22/2015 6:46 PM PDT XR TOE LEFT 2 + VW. 01/21/2015 8:03 PM | | | | HISTORY: FOOT PAIN . | | | | COMPARISON: None available. | | | | FINDINGS: | | Degenerative change at the first MTP joint, including mild joint space | | narrowing, spurring, and joint space narrowing. No radiographic evidence of | | acute fracture or dislocation. Dorsal and plantar calcaneal enthesophytes are | | present. An os trigonum is present. Linear lucency projecting through the | | medial sesamoid at the first MTP joint . Soft tissue swelling, predominantly at | | the forefoot. | | | | | | IMPRESSION - | | Linear lucency projecting through the medial sesamoid bone at the first MTP | | joint, as might be seen with fracture versus congenital variant. Recommend | | correlation with the patient's pain. | | Soft tissue swelling, predominantly in the forefoot. | | | | Dictated and Signed by: Rico Landers MD | | Electronically signed: 01/22/2015 6:43 PM | + + + +---------+ + + | Performing | Address | City/State/Zipcode | Phone Number | | Organization | | | | + +---------+ + + | [facility] | | | | + +---------+ + + Culture, Wound, Smear (01/21/2015 7:56 PM PDT) + + + + + + | Component | Value | Ref Range | Performed | Pathologist | | | | | At | Signature | + + + + + + | Culture | 3+ Staphylococcus | | [facility] | | | | aureus,Methicillin | | [facility] | | | | resistant (MRSA)Comment: | | MEDICAL | | | | *INFECTION PREVENTION | | CENTER - | | | | ALERT - MRSA* CONTACT | | LABORATORY | | | | PRECAUTIONS REQUIRED. | | | | + + + + + + | Gram Stain | 2+ White Blood Cells | | [facility] | | | Result | | | [facility] | | | | | | MEDICAL | | | | | | CENTER - | | | | | | LABORATORY | | + + + + + + | Gram Stain | 1+ Gram positive cocci | | [facility] | | | Result | | | [facility] | | | | | | MEDICAL | | | | | | CENTER - | | | | | | LABORATORY | | + + + + + + + + | Specimen | + + | Wound - Foot joint | | synovial fluid | | (specimen) | + + + + +--------+ + | Organism | Antibiotic | Method | Susceptibility | + + +--------+ + | Staphylococcus | Ciprofloxacin | | >=8: Resistant | | aureus,Methicillin | | | | | resistant (MRSA) | | | | + + +--------+ + | Staphylococcus | Clindamycin | | <=0.25: Sensitive | | aureus,Methicillin | | | | | resistant (MRSA) | | | | + + +--------+ + | Staphylococcus | Levofloxacin | | 4: Resistant | | aureus,Methicillin | | | | | resistant (MRSA) | | | | + + +--------+ + | Staphylococcus | Oxacillin | | >=4: Resistant | | aureus,Methicillin | | | | | resistant (MRSA) | | | | + + +--------+ + | Staphylococcus | Penicillin G | | >=0.5: Resistant | | aureus,Methicillin | | | | | resistant (MRSA) | | | | + + +--------+ + | Staphylococcus | Rifampin | | <=0.5: Sensitive | | aureus,Methicillin | | | | | resistant (MRSA) | | | | + + +--------+ + +---+ + | | Comment: Rifampin | | | should not be used | | | alone for | | | chemotherapy. | +---+ + + + +---+ + | Staphylococcus | Tetracycline | | <=1: Sensitive | | aureus,Methicillin | | | | | resistant (MRSA) | | | | + + +---+ + | Staphylococcus | Trimethoprim + | | <=10: Sensitive | | aureus,Methicillin | Sulfamethoxazole | | | | resistant (MRSA) | | | | + + +---+ + | Staphylococcus | Vancomycin | | <=0.5: Sensitive | | aureus,Methicillin | | | | | resistant (MRSA) | | | | + + +---+ + + + + + + | Performing | Address | City/State/Zipcode | Phone Number | | Organization | | | | + + + + + | [facility] | [address] | [place], [place] | [phone] | | [facility] | | [address] | | | - LABORATORY | | | | + + + + + documented in this encounter Visit Diagnoses + + | Diagnosis | + + | Foot infection - Primary Unspecified local infection of skin and subcutaneous tissue | + + | Left foot infection Unspecified local infection of skin and subcutaneous tissue | + + documented in this encounter Administered Medications + + + +--------+------+------+ | Medication Order | MAR | Action | Dose | Rate | Site | | | Action | Date | | | | + + + +--------+------+------+ | clindamycin (CLEOCIN) capsule | Dispense | 01/22/20 | 300 mg | | | | (ER Prepack) 300 mg 300 mg, | to Home | 15 9:34 | | | | | Oral, ONCE, 01/21/15 at 2100, | | PM PDT | | | | | For 1 dose, Take 2 capsule(s) at | | | | | | | 1:00 in the morning Dispense for | | | | | | | home use., | | | | | | + + + +--------+------+------+ +---+---+ | | | +---+---+ + +---------+ +--------+ +---+ | clindamycin in dextrose | New Bag | 01/22/20 | 900 mg | 50 mL/hr | | | (CLEOCIN) IVPB 900 mg 900 mg, | | 15 8:28 | | | | | Intravenous, Administer over 60 | | PM PDT | | | | | Minutes, ONCE, 01/21/15 at | | | | | | | 2014, For 1 dose | | | | | | + +---------+ +--------+ +---+ +---+---+ | | | +---+---+ + + + +---------+---+---+ | HYDROcodone-acetaminophen | Dispense | 01/22/20 | 2 | | | | (NORCO) 5-325 mg per tablet (ER | to Home | 15 9:34 | tablets | | | | Prepack) 1-2 tablet 1-2 tablet, | | PM PDT | | | | | Oral, ONCE, 01/21/15 at 2100, | | | | | | | For 1 dose, Take 1 to 2 pills by | | | | | | | mouth every 4 hours as needed for | | | | | | | pain, | | | | | | + + + +---------+---+---+ +---+---+ | | | +---+---+ documented in this encounter
--- OUTSIDE RECORDS SUMMARY | ~2019-09-01 | XMS | Encounter Summary ---
Demographics + + + | Address | [address] | | | [place] [address] | + + + | Home Phone | | + + + | Preferred Language | Unknown | + + + | Marital Status | | + + + | Quaker Affiliation | Unknown | + + + | Race | Unknown | + + + | Ethnic Group | Unknown | + + + Author + + + | Author | [facility] | | | and [place] | + + + | Organization | [facility] | [...] | | | | | [place] [address] | | + + + + + Care Team Providers + +------+ + | Care Chair Post Machine Operator Name | Role | Phone | + +------+ + | Hudson Nair | PCP | | | MD | | | + +------+ + Encounter Details +--------+ + + + + | Date | Type | Department | Care Team | Description | +--------+ + + + + | 07/07/ | Hospital | [facility] | Aydee Yañez | | | 2012 | Encounter | [facility] | DO Conor Piper | | | | | CENTER [address] | [address] [place] | | | | | [place], [place] | [address] | | | | | [address] | | | | | | [phone] | | | +--------+ + + + [...] + | PROTIME INR | Routin | 07/07/2013 | | Results for this | | | e | 5:57 PM | | procedure are in the | | | | PST | | results section. | + +--------+ + + + | CBC WITH | Routin | 07/07/2013 | | Results for this | | DIFFERENTIAL | e | 5:57 PM | | procedure are in the | | | | PST | | results section. | + +--------+ + + + | URIC ACID | Routin | 07/07/2013 | | Results for this | | | e | 5:57 PM | | procedure are in the | | | | PST | | results section. | + +--------+ + + + | BASIC METABOLIC | Routin | 07/07/2013 | | Results for this | | PANEL | e | 5:57 PM | | procedure are in the | | | | PST | | results section. | + +--------+ + + + documented in this encounter Results CBC with Differential (07/07/2013 5:57 PM PST) + + + + + + | Component | Value | Ref Range | Performed | Pathologist | | | | | At | Signature | + + + + + + | MANUAL | NO | | [facility] | | | DIFFERENTIA | | | [facility] | | | L ? | | | MEDICAL | | | | | | CENTER - | | | | | | LABORATORY | | + + + + + + | WBC | 12.8 (H) | 4.0 - 11.0 K/uL | [facility] | | | | | | [facility] | | | | | | MEDICAL | | | | | | CENTER - | | | | | | LABORATORY | | + + + + + + | RBC | 4.43 | 4.30 - 5.70 | [facility] | | | | | M/uL | [facility] | | | | | | MEDICAL | | | | | | CENTER - | | | | | | LABORATORY | | + + + + + + | Hemoglobin | 13.4 (L) | 13.5 - 18.0 | [facility] | | | | | gm/dL | [facility] | | | | | | MEDICAL | | | | | | CENTER - | | | | | | LABORATORY | | + + + + + + | Hematocrit | 39.2 (L) | 40.0 - 51.0 % | [facility] | | | | | | [facility] | | | | | | MEDICAL | | | | | | CENTER - | | | | | | LABORATORY | | + + + + + + | MCV | 88.5 | 83.0 - 101.0 fL | [facility] | | | | | | [facility] | | | | | | MEDICAL | | | | | | CENTER - | | | | | | LABORATORY | | + + + + + + | MCH | 30.3 | 28.0 - 35.0 pg | [facility] | | | | | | [facility] | | | | | | MEDICAL | | | | | | CENTER - | | | | | | LABORATORY | | + + + + + + | MCHC | 34.2 | 32.0 - 36.0 | [facility] | | | | | g/dL | [facility] | | | | | | MEDICAL | | | | | | CENTER - | | | | | | LABORATORY | | + + + + + + | RDW-CV | 15.2 (H) | <15.0 % | [facility] | | | | | | [facility] | | | | | | MEDICAL | | | | | | CENTER - | | | | | | LABORATORY | | + + + + + + | Platelet | 281 | 140 - 440 K/uL | [facility] | | | Count | | | [facility] | | | | | | MEDICAL | | | | | | CENTER - | | | | | | LABORATORY | | + + + + + + | % | 75.7 (H) | 45 - 75 % | [facility] | | | Neutrophils | | | [facility] | | | | | | MEDICAL | | | | | | CENTER - | | | | | | LABORATORY | | + + + + + + | % | 15.8 (L) | 20 - 45 % | [facility] | | | Lymphocytes | | | [facility] | | | | | | MEDICAL | | | | | | CENTER - | | | | | | LABORATORY | | + + + + + + | % Monocytes | 5.5 | 4 - 12 % | [facility] | | | | | | [facility] | | | | | | MEDICAL | | | | | | CENTER - | | | | | | LABORATORY | | + + + + + + | % | 1.5 | 0 - 5 % | [facility] | | | Eosinophils | | | [facility] | | | | | | MEDICAL | | | | | | CENTER - | | | | | | LABORATORY | | + + + + + + | % Basophils | 1.5 (H) | 0 - 1 % | [facility] | | | | | | [facility] | | | | | | MEDICAL | | | | | | CENTER - | | | | | | LABORATORY | | + + + + + + | Absolute | 9.6 (H) | 1.5 - 6.6 K/uL | [facility] | | | Neutrophils | | | [facility] | | | | | | MEDICAL | | | | | | CENTER - | | | | | | LABORATORY | | + + + + + + | Absolute | 2.0 | 0.6 - 3.2 K/uL | [facility] | | | Lymphocytes | | | [facility] | | | | | | MEDICAL | | | | | | CENTER - | | | | | | LABORATORY | | + + + + + + | Absolute | 0.7 | 0.0 - 1.0 K/uL | [facility] [...] + + + | Absolute | 0.2 (H) | 0.0 - 0.1 K/uL | [facility] [...] + | [facility] | [address] | [place], [place] | [phone] | | [facility] | | [address] | | | - LABORATORY | | | | + + + + + | [facility] | [address] | [place], [place] | | | [facility] | | [address] | | | - LABORATORY | | | | + + + + + Protime INR (07/07/2013 5:57 PM PST) + + + + + + | Component | Value | Ref Range | Performed | Pathologist | | | | | At | Signature | + + + + + + | Prothrombin | 21.4 (H) | 11.3 - 13.9 | [facility] | | | Time | | seconds | [facility] | | | | | | MEDICAL | | | | | | CENTER - | | | | | | LABORATORY | | + + + + + + | PATIENT | 13.1 | seconds | [facility] | | | NORMAL MEAN | | | [facility] | | | | | | MEDICAL | | | | | | CENTER - | | | | | | LABORATORY | | + + + + + + | INR | 1.9 (H)Comment: INR: | 0.9 - 1.1 | [facility] | | | | USUAL ORAL | | [facility] | | | | ANTICOAGULATION RANGE | | MEDICAL | | | [...] + | [facility] | [address] | [place] | [phone] | | [facility] | | [address] | | | - LABORATORY | | | | + + + + + | [facility] | [address] | [place] | | | [facility] | | [address] | | | - LABORATORY | | | | + + + + + Basic Metabolic Panel (07/07/2013 5:57 PM PST) + + + + + + | Component | Value | Ref Range | Performed | Pathologist | | | | | At | Signature | + + + + + + | Glucose | 98 | 70 - 109 mg/dL | [facility] | | | | | | [facility] | | | | | | MEDICAL | | | | | | CENTER - | | | | | | LABORATORY | | + + + + + + | Calcium | 9.8 | 8.3 - 10.5 | [facility] | | | | | mg/dL | [facility] | | | | | | MEDICAL | | | | | | CENTER - | | | | | | LABORATORY | | + + + + + + | BUN | 12 | 7 - 18 mg/dL | [facility] | | | | | | [facility] | | | | | | MEDICAL | | | | | | CENTER - | | | | | | LABORATORY | | + + + + + + | Creatinine | 0.83 | 0.60 - 1.30 | [facility] | | | | | mg/dL | [facility] | | | | [...] + + + + | BUN/Creatin | 14.5 | 12 - 20 | [facility] | [...] CO2 | 27 | 24 - 31 mEq/L | [facility] [...] + | [facility] | [address] | [place], [place] | [phone] | | [facility] | | [address] | | | - LABORATORY | | | | + + + + + | [facility] | [address] | [place], [place] | | | [facility] | | [address] | | | - LABORATORY | | | | + + + + + Uric Acid (07/07/2013 5:57 PM PST) + +---------+ + + + | Component | Value | Ref Range | Performed | Pathologist | | | | | At | Signature | + +---------+ + + + | Uric Acid | 7.7 (H) | 2.6 - 7.2 mg/dL | [facility] | | | | | | [facility] | | | | | | MEDICAL | | | | | | CENTER - | | | | | | LABORATORY | | + +---------+ + + + + + | Specimen | + + | | + + + + + + + | Performing | Address | City/State/Zipcode | Phone Number | | Organization | | | | + + + + + | [facility] | [address] | [place] | [phone] | | [facility] | | [address] | | | - LABORATORY | | | | + + + + + | [facility] | [address] | [place] | | | [facility] | | [address] | | | - LABORATORY | | | | + + + + + documented in this encounter Visit Diagnoses Not on filedocumented in this encounter"
--- OUTSIDE RECORDS SUMMARY | ~2019-09-01 | XMS | Encounter Summary ---
Demographics + + + | Address | [address] | | | [place] [address] | + + + | Home Phone | | + + + | Preferred Language | Unknown | + + + | Marital Status | | + + + | Restoration Affiliation | Unknown | + + + | Race | Unknown | + + + | Ethnic Group | Unknown | + + + Author + + + | Author | [facility] | | | and [place] | + + + | Organization | [facility] | | | and [...] | | | | | [place] [address] | | + + + + + Care Team Providers + +------+ + | Care Exit Booth Agent Name | Role | Phone | + [...] + + | 10/29/ | Telephone | [facility] | Emil Garcia, | Surgery Appointment | | 2017 | | NEUROSURGERY [address] | DO [address] | (Schedule Surgery) | | | | [address] | [address] [place], [place] | | | | | [place], [place] | [id number] | | | | | [address] | | | | | | [phone] | | | +--------+ + + + [...]
--- OUTSIDE RECORDS SUMMARY | ~2019-09-01 | XMS | Encounter Summary ---
Demographics + + + | Address | [address] | | | [place] [address] | + + + | Home Phone | | + + + | Preferred Language | Unknown | + + + | Marital Status | | + + + | Mormonism Affiliation | Unknown | + + + | Race | Unknown | + + + | Ethnic Group | Unknown | + + + Author + + + | Author | [facility] | | | and [place] | + + + | Organization | [facility] | [...] | | | | | [place] [address] | | + + + + + Care Team Providers + +------+ + | Care Geospatial Program Management Officer Name | Role | Phone | [...] [address] | | | | | AR OFFICE | [address] | [place] | | | | | CONSULTATION | [place], | [address] Phone: | | | | | [place] | [place] [address] | [phone] | | | | | PATIENT 60 | Phone: | Fax: | | | | | MIN | [phone] | [phone] | | | | | | Fax: | | | | | | | [phone] | | +--------+--------+ + + + + [...] | | | | [place] | [id number] | | | | | [address] | | | | | | [phone] | | | +--------+---------+ + + + [...] encounter Progress Notes China Guzmán Master of Telsima - 07/22/2013 10:09 AM PSTError documented in this encounter Plan of Treatment Not on filedocumented as of this encounter Results XR Thoracic Spine 2 Vw (07/19/2013 11:01 AM PST) + + | Specimen | + + | | + + + + + | Narrative | Performed At | + + + | Located Within [facility] | [place] | | Department [address] [facility], [place] | [facility] | | [ rep [address]] [ rep [facility] | | st zip] Signed | - IMAGING | | | | | Patient Name: ROSARIO OCHOA Remington | | | Physician: DENILSON : 1975 Age: 38 Sex: M Unit | | | #: [id number] Exam Date: 07/19/13 Location: | | | IMG Report #: [id number] Page: | | | %(RAD)RES..mtdd.print.filter("pg") of %(RAD) | | | RES..mtdd.print.filter("tpg") | | | | | | Accession Number: [id number] | | | TWO VIEWS OF THORACIC [...] Transcribed Date/Time: 07/19/2013 14:38 | | | Restoration Technician: <<Signature on File>> | | | Juan | | | Theo Ramires MD07/19/13 [id number] <Electronically signed by Juan Ramires | | | MD> Juan Ramires MD 07/19/13 [id number] Restoration Technician: | | | [employer] [id number]/18/13 6321 Emil Garcia DO | | | | | + + + + + + + + | Performing | Address | City/State/Zipcode | Phone Number | | Organization | | | | + + + + + | [facility] | [address] | [place] | [phone] | | [facility] | | [address] | | | - IMAGING | | | | + + + + + documented in this encounter Visit Diagnoses + + | Diagnosis | + + | Status post lumbar spinal fusion - Primary Arthrodesis status | + + documented in this encounter
--- OUTSIDE RECORDS SUMMARY | ~2019-09-01 | XMS | Encounter Summary ---
Demographics + + + | Address | [address] | | | [place] [address] | + + + | Home Phone | | + + + | Preferred Language | Unknown | + + + | Marital Status | | + + + | Bahai Affiliation | Unknown | + + + | Race | Unknown | + + + | Ethnic Group | Unknown | + + + Author + + + | Author | [facility] | | | and [place] | + + + | Organization | [facility] | | | and [...] | | | | | [place] [address] | | + + + + + Care Team Providers + +------+ + | Care Chick Sexer Name | Role | Phone | + [...] [address] | [address] [place], [place] | | | | | [place], [place] | [address] | | | | | [address] | | | | | | [phone] | | | +--------+ + + + [...]
--- OUTSIDE RECORDS SUMMARY | ~2019-09-01 | XMS | Encounter Summary ---
Demographics + + + | Address | [address] | | | [place] [address] | + + + | Home Phone | | + + + | Preferred Language | Unknown | + + + | Marital Status | | + + + | Rastafarian Affiliation | Unknown | + + + | Race | Unknown | + + + | Ethnic Group | Unknown | + + + Author + + + | Author | [facility] | | | and [place] | + + + | Organization | [facility] | | | and [place] | + + + | Address | Unknown | + + + | Phone | Unavailable | + + + Support + + + + + | Name | Relationship | Address | Phone | + + + + + | Alma Gramajo | ECON | [address] | | | | | [place] [address] | | + + + + + Care Team Providers + +------+ + | Care Underwriting Consultant Name | Role | Phone | + [...] | (Primary Dx) | | | | [place], | [place], [place] | | | | | [place] [address] | [address] | | | | | [phone] | | | +--------+ + + + [...] Lumbar radiculopathy ICD-10 Code M54.16 | [facility] | | Zaheer Gramajo presents to the fluoroscopy suite for [facility] | | fluoroscopically-guided bilateral L3-L4 transforaminal epidural [...] + + | [address] | [address] | [place] | [phone] | | [facility] | | [address] | | | - IMAGING | | | | + + + + + documented in this encounter Visit Diagnoses + + | Diagnosis | + + | Lumbar radiculopathy - Primary Thoracic or lumbosacral neuritis or radiculitis, | | unspecified | + + documented in this encounter"
--- OUTSIDE RECORDS SUMMARY | ~2019-09-01 | XMS | Encounter Summary ---
Demographics + + + | Address | [address] | | | [place] [address] | + + + | Home Phone | | + + + | Preferred Language | Unknown | + + + | Marital Status | | + + + | Sabianism Affiliation | Unknown | + + + | Race | Unknown | + + + | Ethnic Group | Unknown | + + + Author + + + | Author | [facility] | | | and [place] | + + + | Organization | [facility] | | | and [...] | | | | | [place] [address] | | + + + + + Care Team Providers + +------+ + | Care Beam Worker Name | Role | Phone | [...] + + | 03/26/ | Office | [facility] | Berhane Chavez, | Numbness in both | | 2017 | Visit | NEUR[address]URGERY [address] | PA-C [address] | legs (Primary Dx); | | | | [address] | [address] [place] | S/P lumbar fusion | | | | [place] | [place] [address] | | | | | [address] | [phone] | | | | | [phone] | | | +--------+---------+ + + + [...] [address] [facility] [address] [place] [address] FAX: NEUROSURGERY FOLLOW-UP CHIEF COMPLAINT: Chief Complaint [...] 03/26/2017 8:49 3 Pallavi Ojeda Me dical Senior Java Web Application Developer - 03/26/2017 8:30 AM PDTREVIEW OF SYSTEMS [...] Other: Difficulty sleeping.Electronically signed by Pallavi Troncoso Counter Waitress/Waiter at 8:56 AM PDTdocumented in this encounter Plan of Treatment Not on filedocumented as of this encounter Visit Diagnoses + + | Diagnosis | + + | Numbness in both legs - Primary Disturbance of skin sensation | + + | S/P lumbar fusion Arthrodesis status | + + documented in this encounter
--- OUTSIDE RECORDS SUMMARY | ~2019-09-01 | XMS | Encounter Summary ---
Demographics + + + | Address | [address] | | | [place] [address] | + + + | Home Phone [...] + | Author | [facility] | | | and [place] | + + + | Organization | [facility] | | | and [place] | + + + | Address | Unknown | + + + | Phone | Unavailable | + + + Support + + + + + | Name | Relationship | Address | Phone | + + + + + | Alma Gramajo | ECON | [address] | | | | | [place] [address] | | + + + + + Care Team Providers + +------+ + | Care Collector Of Port Name | Role | Phone | + [...] | | | | CENTER [address] | [address] [place] | foot infection | | | | [place], [place] | [place] [address] | | | | | [address] | [phone] | | | | | [phone] | | | +--------+ + + + [...] | | | (CLEOCIN) 300 MG | fdc between each | capsule | | 15 [...] and Signed by: | | | Rico Landers MD Electronically signed: 01/22/2015 6:43 PM | [...] ST. | [address] | [place], [place] | [phone] | | [facility] | | [address] | | | - LABORATORY | | [...]
--- OUTSIDE RECORDS SUMMARY | ~2019-09-01 | XMS | Encounter Summary ---
Demographics + + + | Address | [address] | | | [place] [address] | + + + | Home Phone | | + + + | Preferred Language | Unknown | + + + | Marital Status | | + + + | Voodoo Affiliation | Unknown | + + + | Race | Unknown | + + + | Ethnic Group | Unknown | + + + Author + + + | Author | [facility] | | | and [place] | + + + | Organization | [facility] | | | and [place] | + + + | Address | Unknown | + + + | Phone | Unavailable | + + + Support + + + + + | Name | Relationship | Address | Phone | + + + + + | Alma Gramajo | ECON | [address] | | | | | [place] [address] | | + + + + + Care Team Providers + +------+ + | Care Dogman/Woman Name | Role | Phone | + +------+ + | Priaynka Sal PA-C | PCP | | + +------+ + Encounter Details +--------+ + + + + | Date | Type | Department | Care Team | Description | +--------+ + + + + | 01/15/ | [facility] | [facility] | Emil Garcia, | | | 2016 | Encounter | MED CTR XRAY [address] | DO [address] | | | | | [place] | [address] [place], [place] [address] | | | | | [place] [address] | [address] | | | | | [phone] | | | | | | | Saleem Mack MD | | | | | | [address] [place] | | | | | | [place] | | | | | | [address] | | | | | | | [...] and lateral views of the chest. | [facility] | | Lungs: No focal airspace [...] | + + + + + | [facility] | [address] | [place] | [phone] | | [facility] | | [address] | | | - IMAGING | | | | + + + + + documented in this encounter Visit Diagnoses Not on filedocumented in this encounter"
--- OUTSIDE RECORDS SUMMARY | ~2019-09-01 | XMS | Encounter Summary ---
Demographics + + + | Address | [address] | | | [place] [address] | + + + | Home Phone | | + + + | Preferred Language | Unknown | + + + | Marital Status | | + + + | Yarsani Affiliation | Unknown | + + + | Race | Unknown | + + + | Ethnic Group | Unknown | + + + Author + + + | Author | [facility] | | | and [place] | + + + | Organization | [facility] | | | and [...] | | | | | [place] [address] | | + + + + + Care Team Providers + +------+ + | Care Language Interpreter Name | Role | Phone | + +------+ + | Priyanka Sal PA-C | PCP | | + +------+ + Encounter Details +--------+ + + + + | Date | Type | Department | Care Team | Description | +--------+ + + + + | 08/04/ | Episode | [facility] | Afshan Dahl RN | | | 2018 | Changes | SURGERY [address] | | | | | | [place] | | | | | | [address] | | | | | | [phone] | | | +--------+ + + + [...]
--- OUTSIDE RECORDS SUMMARY | ~2019-09-01 | XMS | Encounter Summary ---
Demographics + + + | Address | [address] | | | [place] [address] | + + + | Home Phone | | + + + | Preferred Language | Unknown | + + + | Marital Status | | + + + | Pentecostalism Affiliation | Unknown | + + + | Race | Unknown | + + + | Ethnic Group | Unknown | + + + Author + + + | Author | [facility] | | | and [place] | + + + | Organization | [facility] | | | and [...] | | | | | [place] [address] | | + + + + + Care Team Providers + +------+ + | Care Facilities Maintenance Assistant Name | Role | Phone | + [...] [address] | [address] [place], [place] | pain laterality, | | | | [place], [place] | [address] | unspecified location | | | | [address] | | (Primary Dx) | | | | [phone] | | | +--------+ + + + [...] spine 08/24/2015 and lumbar spine x-ray | [facility] | | 11/25/2013 FINDINGS: Posterior spinal fusion [...] [address] | [place] | [phone] | | [facility] | | [address] | | | - IMAGING | | | | + + + + + documented in this encounter Visit Diagnoses + + | Diagnosis | + + | Back pain, unspecified back pain laterality, unspecified location - Primary | + + documented in this encounter"
--- OUTSIDE RECORDS SUMMARY | ~2019-09-01 | XMS | Encounter Summary ---
Demographics + + + | Address | [address] | | | [place] [address] | + + + | Home Phone | | + + + | Preferred Language | Unknown | + + + | Marital Status | | + + + | Mandaeism Affiliation | Unknown | + + + | Race | Unknown | + + + | Ethnic Group | Unknown | + + + Author + + + | Author | [facility] | | | and [place] | + + + | Organization | [facility] | | | and [...] | | | | | [place] [address] | | + + + + + Care Team Providers + +------+ + | Care Certified Ski Patroller Name | Role | Phone | + +------+ + | Priyanka Sal PA-C | PCP | | + +------+ + Reason for Visit +---------+ + | Reason | Comments | +---------+ + | Post Op | PO Call | +---------+ + Encounter Details +--------+ + + + + | Date | Type | Department | Care Team | Description | +--------+ + + + + | 02/11/ | Telephone | [facility] [place] | Emil Garcia, | Post Op (PO Call) | | 2017 | | NEUROSURGERY [address] | DO [address] | | | | | [address] | [address] [place], [place] | | | | | [place], [place] | [address] | | | | | [address] | | | | | | [phone] | | | +--------+ + + + [...]
--- OUTSIDE RECORDS SUMMARY | ~2019-09-01 | XMS | Encounter Summary ---
Demographics + + + | Address | [address] | | | [place] [address] | + + + | Home Phone [...] + | Organization | [facility] | | | and [...] | | | | | [place] [address] | | + + + + + Care Team Providers + +------+ + | Care Sales Operations Coordinator Name | Role | Phone | + +------+ + | Priyanka Sal PA-C | PCP | | + +------+ + Reason for Visit +---------+ + | Reason | Comments | +---------+ + | Post Op | nephrolithiasis | +---------+ + Encounter Details +--------+---------+ + + + | Date | Type | Department | Care Team | Description | +--------+---------+ + + + | 02/18/ | Office | [facility] | Satinder Elizondo | Nephrolithiasis | | 2018 | Visit | [address] | MD [address] | (Primary Dx) | | | | [place], [place] | [place], [place] | | | | | [address] | [address] | | | | | [phone] | | | +--------+---------+ + + + [...] + + + | Blood Pressure | 130/80 | 02/18/2018 1:15 PM | | | | | PDT | | + + + + + | Pulse | 88 | 02/18/2018 1:15 PM | | | | | PDT | | + + + + + | Temperature | - | - | | + + + + + | Respiratory Rate | 20 | 02/18/2018 1:15 PM | | | | | PDT | | + + + + + | Oxygen Saturation | - | - | | + + + + + | Inhaled Oxygen | - | - | | | Concentration | | | | + + + + + | Weight | 136.7 kg (301 lb 5.9 | 02/18/2018 1:15 PM | | | | oz) | PDT | | + + + + + | Height | 188 cm (6' 2") | 02/18/2018 1:15 PM | | | | | PDT | | + + + + + | Body Mass Index | 38.69 | 02/18/2018 1:15 PM | | | | | PDT [...] encounter Progress Notes Satinder Elizondo MD - 02/18/2018 1:30 PM PDTFormatting of this note might be different f rom the original. Chief Complaint Patient presents with Post Op nephrolithiasis HPI Zaheer Gramajo is a 42 y.o. male patient of Priyanka Sal PA-C here today for a Cystoscopy for nephrolithiasis. left URS LL and stent done 02/12/18 Consent form signed & time out form completed Status post left ureteroscopy laser lithotripsy and stent placement He presents today for stent removal Cystoscopy Preprocedure timeout was performed. The patient's genitals were then prepped and draped us ual fashion. 10 mL's of viscous lidocaine was instilled per urethra. The scope was then in troduced into the urethra. The anterior urethra was grossly normal. The prostatic urethra was also normal. Upon entering the bladder we were able to visualize the stent. Using gras pers the stent was removed. The stent was then inspected and found to be intact. Assessment Zaheer was seen today for post op. Diagnoses and all orders for this visit: Nephrolithiasis Plan Discussed with the patient about performing additional testing to look at risk factors for continued stone formation. At this time the patient declines further testing. He will foll ow-up when necessary Past Medical History Past Medical History: Diagnosis [...] Interbody Fusion; Surgeon: Emil Garcia DO; Location: [facility] MAIN OR LUMBAR SPINE SURGERY 2013 x2 URETEROSCOPY Left 02/12/2018 Procedure: Left Ureteroscopy, Laser Lithotripsy and Stent; Surgeon: Satinder Elizondo MD; Location: [facility] MAIN OR Family History: Family History Problem Relation Age [...] tablet, Take 1-2 tablets by mouth every 4 hours as needed for Pain., Disp: 30 tablet, Rfl: 0 HYDROcodone-acetaminophen (NORCO) 5-325 mg per tablet, Take 1-2 tablets by mouth every 6 hours as needed for Pain., Disp: 20 tablet, Rfl: 0 ibuprofen (ADVIL,MOTRIN) 600 MG tablet, Take 600 mg by mouth every 6 hours as needed f or Pain., Disp: , Rfl: lovastatin (MEVACOR) 20 mg tablet, Take 40 mg by mouth nightly., Disp: , Rfl: tamsulosin (FLOMAX) 0.4 mg CAPS, Take 1 capsule by mouth nightly for 30 days., Disp: 1 5 capsule, Rfl: 0 ROS Gen.: No fever no chills GI: No nausea no vomiting : Frequency and urgency Pulmonary: No coughing no wheezing Cardio: No chest pain or shortness of breath Objective BP 130/80 | Pulse 88 | Resp 20 | Ht 1.88 m (6' 2") | Wt (!) 136.7 kg (301 lb 5.9 oz) | BMI 38.69 kg/m General Appearance: Alert, cooperative, no distress, [...] UA, POC Negative Negative, 100 mg/dL Specific [place], UA, POC 1.020 1.001 - 1.030 Blood, [...] Primary Calculus of kidney | + + documented in this encounter
--- OUTSIDE RECORDS SUMMARY | ~2019-09-01 | XMS | Encounter Summary ---
Demographics + + + | Address | [address] | | | [place] [address] | + + + | Home Phone | | + + + | Preferred Language | Unknown | + + + | Marital Status | | + + + | Christian Affiliation | Unknown | + + + | Race | Unknown | + + + | Ethnic Group | Unknown | + + + Author + + + | Author | [facility] | | | and [place] | + + + | Organization | [facility] | | | and [...] | | | | | [place] [address] | | + + + + + Care Team Providers + +------+ + | Care Frame Straightener Name | Role | Phone | + +------+ + | Priyanka Sal PA-C | PCP | | + +------+ + Reason for Visit + + + | Reason | Comments | + + + | Abdominal Pain | RLQ | + + + Encounter Details +--------+ + + + + | Date | Type | Department | Care Team | Description | +--------+ + + + + | 03/01/ | Emergency | [facility] | Michael Engel, | [facility] | | 2018 | | [facility] | MD [address] | appendagitis | | | | CENTER [address] | [place], [place] | (Primary Dx); Rectal | | | | [place], [place] | [address] | abnormality - | | | | [address] | | rectal wall | | | | [phone] | | thickening on CT | | | | | | scan | +--------+ + + + + Social [...] + + + | Blood Pressure | 106/73 | 03/01/2018 9:37 PM | | | | | PDT | | + + + + + | Pulse | 68 | 03/01/2018 9:37 PM | | | | | PDT | | + + + + + | Temperature | 37 C (98.6 F) | 03/01/2018 7:53 PM | | | | | PDT | | + + + + + | Respiratory Rate | 16 | 03/01/2018 9:37 PM | | | | | PDT | | + + + + + | Oxygen Saturation | 98% | 03/01/2018 9:37 PM | | | | | PDT | | + + + + + | Inhaled Oxygen | - | - | | | Concentration | | | | + + + + + | Weight | 136.1 kg (300 lb) | 03/01/2018 7:51 PM | | | | | PDT | | + + + + + | Height | 188 cm (6' 2") | 03/01/2018 7:51 PM | | | | | PDT | | + + + + + | Body Mass Index | 38.52 | 03/01/2018 7:51 PM | | | | | PDT [...] as of this encounter Discharge Instructions Instructions Michael Engel MD - 03/01/2018The condition you have is benign and should r esolve over the next several days There was an abnormality seen on the CT scan that is nonspecific. The rectal wall was thic kened. You will need a colonoscopy to visualize the rectal area and should see her doctor documented in this encounter Medications at Time [...] + +---------+ + + | | Take 1 tablet by | 30 | 0 | 03/01/20 | | | oxyCODONE-acetaminop | mouth every 6 hours | tablet | | 18 | 8 | | hen (PERCOCET) 5-325 | as needed. | | | | | | mg [...] | + +--------+ + + + | URINALYSIS WITH | STAT | 03/01/2018 | | Results for this | | MICROSCOPIC WITH | | 8:13 PM | | procedure are in the | | CULTURE IF INDICATED | | PDT | | results section. | + +--------+ + + + | CBC WITH | STAT | 03/01/2018 | | Results for this | | DIFFERENTIAL | | 8:01 PM | | procedure are in the | | | | PDT | | results section. | + +--------+ + + + | LIPASE | STAT | 03/01/2018 | | Results for this | | | | 8:01 PM | | procedure are in the | | | | PDT | | results section. | + +--------+ + + + | COMPREHENSIVE | STAT | 03/01/2018 | | Results for this | | METABOLIC PANEL | | 8:01 PM | | procedure are in the | | | | PDT | | results section. | + +--------+ + + + | CT ABDOMEN PELVIS W | STAT | 03/01/2018 | | Results for this | | CONTRAST | | 7:52 PM | | procedure are in the | | | | PDT | | results section. | + +--------+ + + + documented in this encounter Results Urinalysis with Microscopic with Culture if Indicated (03/01/2018 8:13 PM PDT) + + + + + + | Component | Value | Ref Range | Performed | Pathologist | | | | | At | Signature | + + + + + + | Color | Yellow | Light Yellow, | [facility] | | | | | Yellow, Straw | [facility] | | | | | [facility] | | | | | | [facility] - | | | | | | LABORATORY | | + + + + + + | Clarity | Clear | Clear | [facility] | | | | | | [facility] | | | | | | [facility] | | | | [facility] - | | | | | | LAB[facility]ATORY | | + + + + + + | pH, Urine | 5.0 | 5.0 - 8.0 | [facility] | | | | | | [facility] | | | | | | [facility] | | | | | | [facility] - | | | | | | LAB[facility]ATORY | | + + + + + + | Specific | 1.031 (H) | 1.001 - 1.030 | [facility] | | | [place] | | | [facility] | | | | | | [facility] | | | | | | [facility] - | | | | | | LAB[facility]ATORY | | + + + + + + | Protein, | Negative | Negative | [facility] | | | Urine | | | [facility] | | | | | | [facility] | | | | | | [facility] - | | | | | | LAB[facility]ATORY | | + + + + + + | Blood, | Negative | Negative | [facility] | | | Urine | | | [facility] | | | | | | [facility] | | | | | | [facility] - | | | | | | LAB[facility]ATORY | | + + + + + + | Glucose, | Negative | Negative | [facility] | | | Urine | | | [facility] | | | | | | [facility] | | | | | | [facility] - | | | | | | LABORATORY | | + + + + + + | Ketones, | Negative | Negative | [facility] | | | Urine | | | [facility] | | | | | | [facility] | | | | | | [facility] - | | | | | | LAB[facility]ATORY | | + + + + + + | Bilirubin, | Negative | Negative | [facility] | | | Urine | | | [facility] | | | | | | [facility] | | | | | | [facility] - | | | | | | LABORATORY | | + + + + + + | Nitrite, | Negative | Negative | [facility] | | | Urine | | | [facility] | | | | | | [facility] | | | | | | [facility] - | | | | | | LABORATORY | | + + + + + + | Leukocyte | Negative | Negative | [facility] | | | Esterase, | | | [facility] | | | Urine | | | MEDICAL | | | | | | CENTER - | | | | | | LABORATORY | | + + + + + + | Urobilinoge | 2.0 mg/dL (A) | 0.2 mg/dL, 1.0 | [facility] | | | n, Urine | | mg/dL, Negative | [facility] | | | | | | [facility] | | | | | | [facility] - | | | | | | LABORATORY | | + + + + + + | WBC UA | 0-2 | 0 - 2 /HPF | [facility] | | | | | | [facility] | | | | | | [facility] | | | | | | [facility] - | | | | | | LABORATORY | | + + + + + + | RBC UA | 0-2 | 0 - 2 /HPF | [facility] | | | | | | [facility] | | | | | | [facility] | | | | | | [facility] - | | | | | | LABORATORY | | + + + + + + | SQUAMOUS | 2-5 (A) | 0 - 2 /LPF | [facility] | | | EPITHELIAL | | | [facility] | | | UA | | | MEDICAL | | | | | | CENTER - | | | | | | LABORATORY | | + + + + + + | BACTERIA UA | Negative | Negative /HPF | [facility] | | | | | | [facility] | | | | | | [facility] | | | | | | [facility] - | | | | | | LABORATORY | | + + + + + + | MUCUS UA | Present (A) | Negative /LPF | [facility] | | | | | | [facility] | | | | | | [facility] | | | | | | [facility] - | | | | | | LABORATORY | | + + + + + + | SPERM UA | Present (A) | Negative /HPF | [facility] | | | | | | [facility] | | | | | | [facility] | | | | | | [facility] - | | | | | | LABORATORY | | + + + + + + | URINE | Urine Culture Not | | [facility] | | | COMMENT | Indicated | | [facility] | | | | | | [facility] | | | | | | [facility] - | | | | | | LAB[facility]ATORY | | + + + + + + + + | Specimen | + + | Urine - Urine | | specimen obtained by | | clean catch | | procedure (specimen) | + + + + + + + | Performing | Address | City/State/Zipcode | Phone Number | | Organization | | | | + + + + + | [facility] | [address] | [place] | [phone] | | [facility] | | [address] | | | - LABORATORY | | | | + + + + + Lipase (03/01/2018 8:01 PM PDT) + +-------+ + + + | Component | Value | Ref Range | Performed | Pathologist | | | | | At | Signature | + +-------+ + + + | Lipase | 38 | 0 - 60 U/L | [facility] | | | | | | [facility] [...] + | [facility] | [address] | [place], [place] | [phone] | | [facility] | | [address] | | | - LABORATORY | | | | + + + + + Comprehensive Metabolic Panel (03/01/2018 8:01 PM PDT) + + + + + + | Component | Value | Ref Range | Performed | Pathologist | | | | | At | Signature | + + + + + + | Na | 138 | 136 - 149 | [facility] | | | | | mmol/L | [facility] | | | | | | [facility] | | | | | | CENTER - | | | | | | LABORATORY | | + + + + + + | K | 3.8 | 3.5 - 5.1 | [facility] | | | | | mmol/L | [facility] | | | | | | [facility] | | | | | | CENTER - | | | | | | LABORATORY | | + + + + + + | Cl | 104 | 98 - 109 mmol/L | [facility] | | | | | | [facility] | | | | | | [facility] | | | | | | CENTER - | | | | | | LABORATORY | | + + + + + + | CO2 | 26 | 24 - 31 mmol/L | [facility] [...] + + + + | Glucose | 99 | 70 - 109 mg/dL | [facility] | | | | | | [facility] | | | | | | [facility] | | | | | | CENTER - | | | | | | LABORATORY | | + + + + + + | BUN | 15 | 7 - 18 mg/dL | [facility] | | | | | | [facility] | | | | | | [facility] | | | | | | CENTER - | | | | | | LABORATORY | | + + + + + + | Creatinine | 1.10 | 0.60 - 1.30 | [facility] | | | | | mg/dL | [facility] | | | | | | MEDICAL | | | | | | CENTER - | | | | | | LABORATORY | | + + + + + + | eGFR if not | >60Comment: GLOMERULAR | >=60 | [facility] | | | | FILTRATION | mL/min/1.73m2 | [facility] | | | [place] | RATE,ESTIMATED | | MEDICAL | | | | mL/min/1.80j5Duhp than | | CENTER - | | [...] + + + + | Calcium | 9.0 | 8.3 - 10.5 | [facility] | [...] + + + + | Bilirubin | 0.9 | 0.1 - 1.5 mg/dL | [facility] | | | Total | | | [facility] | | | | | | [facility] | | | | | | CENTER - | | | | | | LABORATORY | | + + + + + + | Total | 6.8 | 6.0 - 7.8 g/dL | [facility] | | | Protein | | | [facility] | | | | | | [facility] | | | | | | CENTER - | | | | | | LABORATORY | | + + + + + + | AST | 16 | 10 - 42 U/L | [facility] | | | | | | [facility] | | | | | | [facility] | | | | | | CENTER - | | | | | | LABORATORY | | + + + + + + | ALT | 13 | 6 - 45 U/L | [facility] | | | | | | [facility] | | | | | | [facility] | | | | | | CENTER - | | | | | | LABORATORY | | + + + + + + | Alkaline | 53 | 40 - 110 U/L | [facility] | | | Phosphatase | | | [facility] | | | | | | [facility] | | | | | | CENTER - | | | | | | LABORATORY | | + + + + + + | Globulin | 2.7 | 2.1 - 3.8 g/dL | [facility] | | | | | | [facility] | | | | | | [facility] | | | | | | CENTER - | | | | | | LABORATORY | | + + + + + + | Albumin/Shelly | 1.5 | 0.8 - 2.0 | [facility] | | | bulin Ratio | | | [facility] | | | | | | [facility] | | | | | | CENTER - | | | | | | LABORATORY | | + + + + + + | BUN/Creatin | 13.6 | | [facility] | | | ine [...] + | [facility] | [address] | [place] | [phone] | | [facility] | | [address] | | | - LABORATORY | | | | + + + + + CBC with Differential (03/01/2018 8:01 PM PDT) + + + + + + | Component | Value | Ref Range | Performed | Pathologist | | | | | At | Signature | + + + + + + | WBC | 9.1 | 4.0 - 11.0 K/uL | [facility] | | | | | | [facility] | | | | | | [facility] | | | | | | [facility] - | | | | | | LABORATORY | | + + + + + + | RBC | 4.63 | 4.30 - 5.70 | [facility] | | | | | M/uL | [facility] | | | | | | MEDICAL | | | | | | CENTER - | | | | | | LABORATORY | | + + + + + + | Hemoglobin | 14.4 | 13.5 - 18.0 | [facility] | | | | | g/dL | [facility] | | | | | | MEDICAL | | | | | | CENTER - | | | | | | LABORATORY | | + + + + + + | Hematocrit | 41.6 | 40.0 - 51.0 % | [facility] [...] + + + + | MCH | 31.1 | 28.0 - 35.0 pg | [facility] | | | | | | [facility] | | | | | | [facility] | | | | | | C[facility] - | | | | | | LABORATORY | | + + + + + + | MCHC | 34.6 | 32.0 - 36.0 | [facility] | | | | | g/dL | [facility] | | | | | | [facility] | | | | | | CENTER - | | | | | | LABORATORY | | + + + + + + | RDW-CV | 13.9 | <15.0 % | [facility] | | | | | | [facility] | | | | | | [facility] | | | | | | C[facility] - | | | | | | LABORATORY | | + + + + + + | Platelet | 189 | 140 - 440 K/uL | [facility] | | | Count | | | [facility] | | | | | | [facility] | | | | | | CENTER - | | | | | | LABORATORY | | + + + + + + | MPV | 9.1 | fL | [facility] | | | | | | [facility] | | | | | | [facility] | | | | | | C[facility] - | | | | | | LABORATORY | | + + + + + + | % | 71.5 | 45.0 - 82.0 % | [facility] | | | Neutrophils | | | [facility] | | | | | | [facility] | | | | | | CENTER - | | | | | | LABORATORY | | + + + + + + | % | 18.2 (L) | 20.0 - 45.0 % | [facility] | | | Lymphocytes | | | [facility] | | | | | | [facility] | | | | | | CENTER - | | | | | | LABORATORY | | + + + + + + | % Monocytes | 8.1 | 4.0 - 12.0 % | [facility] | | | | | | [facility] | | | | | | [facility] | | | | | | C[facility] - | | | | | | LABORATORY | | + + + + + + | % | 1.8 | 0.0 - 5.0 % | [facility] | | | Eosinophils | | | [facility] | | | | | | [facility] | | | | | | C[facility] - | | | | | | LABORATORY | | + + + + + + | % Basophils | 0.4 | 0.0 - 1.0 % | [facility] | | | | | | [facility] | | | | | | [facility] | | | | | | C[facility] - | | | | | | LABORATORY | | + + + + + + | Absolute | 6.50 | 1.80 - 8.50 | [facility] | | | Neutrophils | | K/uL | [facility] | | | | | | [facility] | | | | | | CENTER - | | | | | | LABORATORY | | + + + + + + | Absolute | 1.70 | 0.60 - 3.20 | [facility] | | | Lymphocytes | | K/uL | [facility] | | | | | | [facility] | | | | | | CENTER - | | | | | | LABORATORY | | + + + + + + | Absolute | 0.70 | 0.00 - 1.00 | [facility] | | | Monocytes | | K/uL | [facility] | | | | | | [facility] | | | | | | CENTER - | | | | | | LABORATORY | | + + + + + + | Absolute | 0.20 | 0.00 - 0.40 | [facility] | | | Eosinophils | | K/uL | [facility] | | | | | | [facility] | | | | | | CENTER - | | | | | | LABORATORY | | + + + + + + | Absolute | 0.00 | 0.00 - 0.10 | [facility] | [...] ST. | [address] | [place] | [phone] | | [facility] | | [address] | | | - LABORATORY | | | | + + + + + CT Abdomen Pelvis w Contrast (03/01/2018 7:52 PM PDT) + + | Specimen | + + | | + + + + + | Narrative | Performed At | + + + | CT ABDOMEN AND PELVIS WITH CONTRAST CLINICAL INFORMATION: | [facility] | | RLQ pain COMPARISON: 12/09/2017 PROCEDURE: Axial images | | | through the abdomen and pelvis after the administration of 85 | | | Omnipaque 350 intravenous contrast. Multiplanar reconstructions. | | | At least one of the following CT dose optimization techniques were | | | used: Automated exposure control; Adjustment of mA and/or kV according | | | to patient size; Use of iterative reconstruction technique. | | | FINDINGS: LUNG BASES: No significant pulmonary abnormality. No | | | pleural effusion or pneumothorax. ABDOMEN Liver and Biliary: No | | | gallbladder or biliary abnormality. No significant liver abnormality. | | | Pancreas, Spleen and Adrenals: No pancreatitis or pancreatic mass. | | | No splenomegaly, splenic mass or splenic hemorrhage. No significant | | | adrenal abnormality. Kidneys: No hydronephrosis or suspicious renal | | | mass. Tiny 2 mm calculus in the proximal left ureter at the level | | | of L3-4. ABDOMEN AND PELVIS Bowel: Mild circumferential wall | | | thickening of the rectum, uncertain etiology or significance. No | | | wall thickening elsewhere in the colon. Normal appendix. Small | | | bowel loops normal caliber. Vessels: No significant abnormality in | | | the aorta, its proximal branches or the iliac arteries. No | | | significant abnormality in the portal veins, mesenteric veins or | | | systemic veins. Lymph Nodes: No adenopathy. Peritoneum and | | | Retroperitoneum: No free fluid or free air. No peritoneal mass. | | | Mild fat stranding in the right lower quadrant anterior and lateral | | | to the ascending colon with fat attenuation center, series 2, image | | | 77, compatible with epiploic appendagitis. PELVIS Genitourinary: | | | Distal ureters and bladder appear normal. No pelvic masses. | | | BODY WALL Soft Tissues: Small fat containing right inguinal hernia. | | | Bones: No acute fracture or vertebral end plate destruction. Sclerotic | | | lesion is seen in the right ilium, unchanged and likely representing | | | a bone island.. No suspicious lytic or or blastic lesion. | | | Postsurgical changes thoracolumbar spine. IMPRESSION- 1. Acute | | | right lower quadrant epiploic appendagitis. Normal appendix. 2. | | | Mild circumferential wall thickening of the nondistended rectum, | | | uncertain etiology or significance. 3. 2 mm calculus in the | | | proximal left ureter without associated hydronephrosis. A | | | preliminary report was sent by [facility] with no significant | | | discrepancy. Dictated and Signed by: Gavin Thomas MD | | | Electronically signed: 03/02/2018 9:48 AM | | + + + + + | Procedure Note | + + | Raoul, Rad Results In - 03/02/2018 9:52 AM PDT | | CT ABDOMEN AND PELVIS WITH CONTRAST | | | | CLINICAL INFORMATION: | | RLQ pain | | | | COMPARISON: | | 12/09/2017 | | | | PROCEDURE: | | Axial images through the abdomen and pelvis after the administration of | | 85 Omnipaque 350 intravenous contrast. Multiplanar reconstructions. | | | | At least one of the following CT dose optimization techniques were | | used: Automated exposure control; Adjustment of mA and/or kV according | | to patient size; Use of iterative reconstruction technique. | | | | FINDINGS: | | LUNG BASES: No significant pulmonary abnormality. No pleural effusion | | or pneumothorax. | | | | ABDOMEN | | Liver and Biliary: No gallbladder or biliary abnormality. No | | significant liver abnormality. | | Pancreas, Spleen and Adrenals: No pancreatitis or pancreatic mass. No | | splenomegaly, splenic mass or splenic hemorrhage. No significant | | adrenal abnormality. | | Kidneys: No hydronephrosis or suspicious renal mass. Tiny 2 mm | | calculus in the proximal left ureter at the level of L3-4. | | | | ABDOMEN AND PELVIS | | Bowel: Mild circumferential wall thickening of the rectum, uncertain | | etiology or significance. No wall thickening elsewhere in the colon. | | Normal appendix. Small bowel loops normal caliber. | | Vessels: No significant abnormality in the aorta, its proximal branches | | or the iliac arteries. No significant abnormality in the portal veins, | | mesenteric veins or systemic veins. | | Lymph Nodes: No adenopathy. | | Peritoneum and Retroperitoneum: No free fluid or free air. No | | peritoneal mass. Mild fat stranding in the right lower quadrant | | anterior and lateral to the ascending colon with fat attenuation | | center, series 2, image 77, compatible with epiploic appendagitis. | | | | PELVIS | | Genitourinary: Distal ureters and bladder appear normal. No pelvic | | masses. | | | | BODY WALL | | Soft Tissues: Small fat containing right inguinal hernia. | | Bones: No acute fracture or vertebral end plate destruction. Sclerotic lesion is | | seen in the right ilium, unchanged and likely representing a bone island.. No | | suspicious lytic or or blastic lesion. Postsurgical changes thoracolumbar | | spine. | | | | IMPRESSION- | | 1. Acute right lower quadrant epiploic appendagitis. Normal appendix. | | 2. Mild circumferential wall thickening of the nondistended rectum, uncertain | | etiology or significance. | | 3. 2 mm calculus in the proximal left ureter without associated hydronephrosis. | | | | | | A preliminary report was sent by [facility] with no significant | | discrepancy. | | | | Dictated and Signed by: Gavin Thomas MD | | Electronically signed: 03/02/2018 9:48 AM | + + + +---------+ + + | Performing | Address | City/State/Zipcode | Phone Number | | Organization | | | | + +---------+ + + | [facility] | | | | + +---------+ + + documented in this encounter Visit Diagnoses + + | Diagnosis | + + | Epiploic appendagitis - Primary Other and unspecified noninfectious gastroenteritis | | and colitis | + + | Rectal abnormality - rectal wall thickening on CT scan Other specified disorder of | | rectum and anus | + + documented in this encounter Administered Medications + +--------+ +------+------+------+ | Medication Order | MAR | Action | Dose | Rate | Site | | | Action | Date | | | | + +--------+ +------+------+------+ | HYDROmorphone (DILAUDID) | Given | 03/01/20 | 1 mg | | | | injection 1 mg 1 mg, | | 18 8:02 | | | | | Intravenous, ONCE, 03/01/18 at | | PM PDT | | | | | 1935, For 1 dose | | | | | | + +--------+ +------+------+------+ +---+---+ | | | +---+---+ + +-------+ +--------+---+---+ | iohexol (OMNIPAQUE 350) 350 | Given | 03/01/20 | 85 mLs | | | | mg/mL injection 85 mL 85 mL, | | 18 7:53 | | | | | Intravenous, ONCE PRN, Other, | | PM PDT | | | | | Starting 03/01/18 at 1953, For | | | | | | | 1 dose, Cat Scanner | | | | | | + +-------+ +--------+---+---+ +---+---+ | | | +---+---+ + +-------+ +------+---+---+ | ondansetron (ZOFRAN) injection | Given | 03/01/20 | 4 mg | | | | 8 mg 8 mg, Intravenous, ONCE, | | 18 8:02 | | | | | 03/01/18 at 1935, For 1 dose | | PM PDT | | | | + +-------+ +------+---+---+ +---+---+ | | | +---+---+ + + + + +---+---+ | oxyCODONE-acetaminophen | Dispense | 03/01/20 | 1 tablet | | | | (PERCOCET) 5-325 mg per tablet | to Home | 18 9:32 | | | | | (ED prepack) 1 tablet 1 tablet, | | PM PDT | | | | | Oral, EVERY 6 HOURS PRN, Pain, | | | | | | | Starting 03/01/18 at 2119, | | | | | | | Patient Address: [address] [place] [address] | | | | | | | Ct;[place] [address], | | | | | | + + + + +---+---+ +---+---+ | | | +---+---+ + +---------+ +--------+-------+---+ | sodium chloride 0.9% (NS) bolus | New Bag | 03/01/20 | 1,000 | 4000 | | | 1,000 mL 1,000 mL, Intravenous, | | 18 8:02 | mLs | mL/hr | | | Administer over 15 Minutes, | | PM PDT | | | | | ONCE, 03/01/18 at 1935, For 1 | | | | | | | dose | | | | | | + +---------+ +--------+-------+---+ +---+---+ | | | +---+---+ documented in this encounter
--- OUTSIDE RECORDS SUMMARY | ~2019-09-01 | XMS | Encounter Summary ---
Demographics + + + | Address | [address] | | | [place] [address] | + + + | Home Phone | | + + + | Preferred Language | Unknown | + + + | Marital Status | | + + + | Caodaism Affiliation | Unknown | + + + | Race | Unknown | + + + | Ethnic Group | Unknown | + + + Author + + + | Author | [facility] | | | and [place] | + + + | Organization | [facility] | | | and [place] | + + + | Address | Unknown | + + + | Phone | Unavailable | + + + Support + + + + + | Name | Relationship | Address | Phone | + + + + + | Alma Gramajo | ECON | [address] | | | | | [place] [address] | | + + + + + Care Team Providers + +------+ + | Care Leaf Tinner Name | Role | Phone | + +------+ + | Hudson Nair | PCP | | | MD | | | + +------+ + Encounter Details +--------+ + + + + | Date | Type | Department | Care Team | Description | +--------+ + + + + | 07/05/ | Anti-coag | [facility] | Fuad Childs, | DVT of leg (deep | | 2013 | visit | [facility] [address] | [employer] [address] | venous thrombosis) | | | | Street [place], | [place], [place] | ([facility]) (Primary Dx); | | | | [place] [phone] | [address] | Monitoring for | | | | [phone] | | anticoagulant use | +--------+ + + + + Social [...] documented as of this encounter Progress Notes Fuad Childs ARNP - 07/05/2013 12:52 PM PSTNew warfarin schedule.code 497 documented in this encounter Plan of Treatment Not on filedocumented as of this encounter Procedures + +--------+ + + + | Procedure Name | Priori | Date/Time | Associated Diagnosis | Comments | | | ty | | | | + +--------+ + + + | POC PT/INR | Routin | 07/05/2013 | | Results for this | | FINGERSTICK | e | | | procedure are in the | | | | | | results section. | + +--------+ + + + documented in this encounter Results POCT PT/INR fingerstick (07/05/2013) + +-------+ + + + | Component | Value | Ref Range | Performed | Pathologist | | | | | At | Signature | + +-------+ + + + | Prothrombin | | seconds | | | | Time | | | | | + +-------+ + + + | INR | | | | | + +-------+ + + + | INR, POC | 1.8 | | | | + +-------+ + + + + + | Specimen | + + | Blood specimen | | (specimen) | + + documented in this encounter Visit Diagnoses + + | Diagnosis | + + | DVT of leg (deep venous thrombosis) (HCC) - Primary Acute venous embolism and | | thrombosis of unspecified deep vessels of lower extremity | + + | Monitoring for anticoagulant use Encounter for long-term (current) use of | | anticoagulants | + + documented in this encounter"
--- OUTSIDE RECORDS SUMMARY | ~2019-09-01 | XMS | Encounter Summary ---
Demographics + + + | Address | [address] | | | [place] [address] | + + + | Home Phone [...] | Organization | [facility] | | | and [...] | | | | | [place] [address] | | + + + + + Care Team Providers + +------+ + | Care Rotor Coil Taper Name | Role | Phone | + +------+ + | Priyanka Sal PA-C | PCP | | + +------+ + Encounter Details +--------+ + + + + | Date | Type | Department | Care Team | Description | +--------+ + + + + | 05/28/ | [facility] | [facility] | Berhane Chavez, | S/P lumbar fusion | | 2017 | Encounter | MED CTR XRAY [address] | [address] | | | | | [place] | [address] [place] | | | | | [place] [address] | [place] [address] | | | | | [phone] | [phone] | | | | | | | [...] LUMBAR SPINE 2 OR | Routin | 05/28/2017 | S/P lumbar fusion | Results for this | | 3 VW | e | 7:38 AM | | procedure are in the [...] Procedure Note | + + | Raoul, Deo Results In - 05/28/2017 8:31 AM PDT [...]
--- OUTSIDE RECORDS SUMMARY | ~2019-09-01 | XMS | Encounter Summary ---
Demographics + + + | Address | [address] | | | [place] [address] | + + + | Home Phone [...] + | Organization | [facility] | | | [...] | | | | | [place] [address] | | + + + + + Care Team Providers + +------+ + | Care Education Administrative Assistant Name | Role | Phone | + +------+ + | Priyanka Sal PA-C | PCP | | + +------+ + Reason for Visit +---------+ + | Reason | Comments | +---------+ + | Post Op | 3M PO | +---------+ + Encounter Details +--------+---------+ + + + | Date | Type | Department | Care Team | Description | +--------+---------+ + + + | 05/28/ | Office | [facility] | Channing Blanchard | S/P lumbar fusion | | 2017 | Visit | [address] | MIKE [address]anna [address] | (Primary Dx) | | | | [address] | [address] | | | | | [place], [place] | [place] | | | | | [phone] | [address] | | | | | [phone] | | | +--------+---------+ + + + [...] + + + | Blood Pressure | 118/73 | 05/28/2017 8:21 AM | | | | | PDT | | + + + + + | Pulse | 69 | 05/28/2017 8:21 AM | | | | | PDT [...] + + + + | Weight | 137.2 kg (302 lb 6.4 | 05/28/2017 8:21 AM | | | | oz) | PDT | | + + + + + | Height | 185.4 cm (6' 1") | 05/28/2017 8:21 AM | | | | | PDT | | + + + + + | Body Mass Index | 39.9 | 05/28/2017 8:21 AM | | | | | PDT [...] of this encounter Patient Instructions Patient Instructions Channing Blanchard PA-C - 05/28/2017 8:00 AM PDTFollow-up in 6 mo nths to check the status of your fusion. Return to work as tolerated. 17 8:56 AM PDT documented in this encounter Progress Notes Channing Blanchard PA-C - 05/28/2017 8:00 AM PDTFormatting of this note might be diffe rent from the original. Channing Blanchard PA-C [address] [facility], [address] [place] [address] FAX: NEUROSURGERY FOLLOW-UP CHIEF COMPLAINT: Chief Complaint Patient presents with Post Op 3M PO HISTORY OF PRESENT ILLNESS: The patient is a 42 y.o. male that had a lumbar fusion for chente k and leg symptoms around 3 months ago. He returns and overall is doing well. The patient complains of mild back and leg discomfort. He still notes some bilateral leg numbness that' s worse on the left. The patient has been walking as much as directed. He is still taking pain medications at this point. The patient states he is taking pain medication at bedtime because it helps him relax and decrease his pain. The patient has had no issues with his german rgical site. He would like to return to work. CURRENT MEDICATIONS: Current Outpatient Prescriptions Medication Sig [...] use drugs. INTERIM PHYSICAL EXAMINATION: Blood pressure 118/73, pulse 69, height 1.854 m (6' 1"), weight (!) 137.2 kg (302 lb 6.4 oz ). Body mass index is 39.9 kg/m. GENERAL: Zaheer Gramajo is in no [...] preoperative exam. Mild paresthesia in lower extremities. REVIEW OF SYSTEMS GENERALLY: No fever, no [...] addition, the patient has numbness/pain of legs, coordination difficulty, pain in back and headaches. PSYCHIATRIC: No [...] increased the patient s activities now allowing a 30 pound lifting restriction that can be gradually increased to an as tolerated limit. The patient should increase range of charlene on activities as tolerated. They should continue regular exercise and strengthening with th e hope that they can avoid additional surgery. We discussed returning to work. He works at the [employer] and is able to stay within res trictions and perform all of his job duties. He will return to work on 06/03. [facility] pain medication should be continued and tapered by their primary care provider or pain management The patient will follow-up in [address] Garcia to check the status of his fusion an d improvement. ELECTRONICALLY SIGNED BY: Channing Blanchard PA-C, 05/28/2017 9:00 documented in this encounter Plan of Treatment [...]
--- OUTSIDE RECORDS SUMMARY | ~2019-09-01 | XMS | Encounter Summary ---
Demographics + + + | Address | [address] | | | [place] [address] | + + + | Home Phone [...] [facility] | | | [...] | | | | | [place] [address] | | + + + + + Care Team Providers + +------+ + | Care Circular Stuffer Name | Role | Phone | + [...] | | | | | | | Inguinal | | | | | | | hernia of | | | | | | | right side | | | | | | | without | | | | | | | obstruction | | | | | | | or gangrene | | | | | | | (K40.90) | | | | | | | Procedures | | | | | | | MD REPAIR | | | | | | | ING | | | | | | | HERNIA,5+Y/O | | | | | | | ,REDUCIBL | | | | | | | RIGHT | | | | | | | INGUINAL | | | | | | | HERNIA | | | | | | | REPAIR WITH | | | | | | | MESH | | | +--------+--------+ + + + + Encounter Details +--------+ + + + + | Date | Type | Department | Care Team | Description | +--------+ + + + + | 08/12/ | Hospital | [facility] | Cris Gutierrez | Right inguinal | | 2018 | Encounter | MED CTR OR INTRA OP | [address] | hernia | | | | [address] | [place] | | | | | [place] | [place] [address] | | | | | [address] | [phone] | | | | | [phone] | | | +--------+ + + + [...] + + | Pulse | 60 | 08/12/2018 4:00 PM | | | | | PST | | + + + + + | Temperature | 36.7 C (98.1 F) | 08/12/2018 11:41 AM | | | | | PST | | + + + + + | Respiratory Rate | 16 | 08/12/2018 2:50 PM | | | | | PST | | + + + + + | Oxygen Saturation | 91% | 08/12/2018 4:00 PM | | | | | PST | | + + + + + | Inhaled Oxygen | - | - | | | Concentration | | | | + + + + + | Weight | 135.8 kg (299 lb 6.2 | 08/12/2018 11:41 AM | | | | oz) | PST | | + + + + + | Height | 188 cm (6' 2") | 08/12/2018 11:41 AM | | | | | PST | | + + + + + | Body Mass Index | 38.44 | 08/12/2018 11:41 AM | | | | | PST | [...] documented as of this encounter Discharge Instructions Zoey Abernathy RN - 08/12/2018 POSTOPERATIVE DISCHARGE INSTRUCTIONS Office Phone Number to Contact Dr Gutierrez: [phone] Guiterrez's Office to schedule a follow up visit in about 2 weeks. Our off ce is located in the [facility] next door to Urgent Care. Wound Care You have a skin glue dressing which will flake off in the next two weeks. You may shower in 48 hr, but do not soak in water until after you are seen in the office . You may put an ice pack or a heating pad on your incision for 20 minutes, up to 3 times a day, if it helps with your pain. You may put an ointment on your incision (Vitamin E, cocoa butter) when the steri-strips come off. An ointment may make the scar smaller over time. Keep your incision out of direct sunlight for one year to keep it from turning dark. Over the Counter Medications Take Colace (docusate sodium) to keep stool soft. It may be needed when taking prescrip tion pain mediations. Tylenol (acetominophen) may be taken instead of your prescription pain medication for mi ld pain. Because your prescription pain medication may contain acetominophen, you should no t take it in combination with your prescription pain medication. Motrin, Advil (ibuprofen), or Aleve may be taken in addition to your prescription pain m edications. Things to Remember When Taking Prescription Pain Medications Do not drink alcohol Do not drive (riding is OK) The medicine may cause constipation. Use only if needed for severe pain. You may use a n over the counter stool softener if needed. People usually need 2 pain pills every 4 hours in the days after surgery, then are able to cut back to 1 pill, or switch to over the counter medicine. By 2 weeks after surgery, yo u should only need your prescription pain pills at night to help you sleep. You may not nee d it all anymore. Be sure to plan ahead if you need a refill of your pain medication. You may call the o ffice Friday - 9:00-5:00 and Friday 9:00-2:00PM. Call the General Surgery Office [phone] for the following: Persistent vomiting Diarrhea lasting more than two days. Constipation not helped by over the counter medications for more than 48 hours Temperature more than 101.5F (38.5C) or shaking chills. Increasing redness Or drainage from your wound Difficulty breathing Hard to urinate (pee) Pain that is worse, even with your pain medication It is normal after surgery to have: More pain or tiredness after increased activity. A hard ridge or lump right under your incision. This is part of normal healing. Diet Eat regular Drink 6 to 8 glasses of water a day, unless directed otherwise. If you are constipated, take a fiber laxative such as Metamucil. Physical Activity Lifting restrictions No lifting greater than 15 lbs (2 gallons of milk) for 3 weeks Resume light activities around your home as soon as possible. Limit sports and strenuous activities [id number]. Shower as usual. Gently wash around your incisions with soap and water. Don t bathe or soak in a tub until your incisions are well healed. Wear loose-fitting clothes. This will help you be more comfortable and cause less irrita tion around your incisions. Walking is OK. Going up and down stairs is OK. Don t drive until you are no longer taking prescription pain medication. We thank you for trusting us with your care. AttachmentsThe following attachments cannot be sent through Care Everywhere.Having Hernia S urgery: Traditional Repair ([place])documented in this encounter Medications at Time of Discharge + + + +---------+ + + | Medication | Sig | Dispensed | Refills | Start | End Date | | | | | | Date | | + + + +---------+ + + | acetaminophen | Take 1-2 tablets by | 60 | 0 | /08/20 | | | (TYLENOL) 500 mg | mouth every 6 hours | tablet | | 18 | | | tablet | as needed for Pain. | | | | | + + + +---------+ + + | Ergocalciferol | Take 2,000 Units by | | 0 | | | | (VITAMIN D2) 2000 | mouth Daily. | | | | | | units TABS | | | | | | + + + +---------+ + + | ibuprofen | Take 1 tablet by | 60 | 1 | 08/12/20 | | | (ADVIL,MOTRIN) 600 | mouth every 6 hours | tablet | | 18 | | | MG tablet | as needed [...] + + +---------+ + + | oxyCODONE | Take 1-2 tablets by | 30 | 0 | 08/12/20 | | | (ROXICODONE) 5 mg | mouth every 6 hours | tablet | | 18 | | | tablet | as needed for [...] | + +--------+ + + + | REPAIR HERNIA | | 08/12/2018 | Inguinal hernia of | | | INGUINAL | | 12:25 PM | right side without | | | | | PST | obstruction or | | | | | | gangrene | | + +--------+ + + + +---+--------+ | | Case | | | Notes | | | | | | Matt | | | Case 1 | | | to | | | follow | | | | | | Lenhar | | | t | +---+--------+ + +--------+ +---+ + | XR CHEST PA AND | Routin | 08/12/2018 | | Results for this | | LATERAL | e | 11:59 AM | | procedure are in the | | | | PST | | results section. | + +--------+ +---+ + documented in this encounter Results XR Chest PA and Lateral (08/12/2018 11:59 AM PST) + + | Specimen | + + | | + + + + + | Narrative | Performed At | + + + | EXAM: XR CHEST PA AND LATERAL dated 08/12/2018 11:59 AM HISTORY: | [facility] | | preop clearance Comparison: 01/15/2017 TECHNIQUE: Frontal and | | | lateral views of the chest. FINDINGS: The lungs are symmetrically | | | aerated. They are clear. There are no pleural effusions. There | | | is no pneumothorax. The cardiac and mediastinal contours are not | | | enlarged. Posterior and interbody fusion changes are present in the | | | lower thoracic spine. IMPRESSION - Negative two-view chest | | | radiograph. Dictated and Signed by: Aj Monahan MD | | | Electronically signed: 08/12/2018 12:20 PM | | + + + + + | Procedure Note | + + | Raoul, Rad Results In - 08/12/2018 12:23 PM PST EXAM: XR CHEST PA AND LATERAL dated | | 08/12/2018 11:59 AMHISTORY: preop clearanceComparison: 01/15/2017TECHNIQUE: Frontal and | | lateral views of the chest.FINDINGS:The lungs are symmetrically aerated. They are | | clear. There are no pleuraleffusions. There is no pneumothorax. The cardiac and | | mediastinal contours arenot enlarged. Posterior and interbody fusion changes are | | present in the lowerthoracic spine. IMPRESSION -Negative two-view chest radiograph. | | Dictated and Signed by: Aj Monahan MD Electronically signed: 08/12/2018 12:20 PM | | | |FINDINGS: | |The lungs are symmetrically aerated. They are clear. There are no pleural | |effusions. There is no pneumothorax. The cardiac and mediastinal contours are | |not enlarged. Posterior and interbody fusion changes are present in the lower | |thoracic spine. | | | |IMPRESSION - | | | |Negative two-view chest radiograph. | | | |Dictated and Signed by: Aj Monahan MD | | Electronically signed: 08/12/2018 12:20 PM | + + + +---------+ + + | Performing | Address | City/State/Zipcode | Phone Number | | Organization | | | | + +---------+ + + | [facility] | | | | + +---------+ + + documented in this encounter Visit Diagnoses + + | Diagnosis | + + | Right inguinal hernia Inguinal hernia without mention of obstruction or gangrene, | | unilateral or unspecified, (not specified as recurrent) | + + documented in this encounter Administered Medications + +--------+ + +------+------+ | Medication Order | MAR | Action | Dose | Rate | Site | | | Action | Date | | | | + +--------+ + +------+------+ | acetaminophen (TYLENOL) tablet | Given | 08/12/20 | 1,000 mg | | | | 1,000 mg 1,000 mg, Oral, ONCE, | | 18 12:20 | | | | | Wed 18 at 1230, For 1 dose, | | PM PST | | | | | Pre-op | | | | | | + +--------+ + +------+------+ + +---+ | | | + +---+ | albuterol 2.5 mg/3 mL nebulizer | | | solution 2.5 mg 2.5 mg, | | | Nebulization, ONCE PRN, Wheezing, | | | Starting 08/12/18 at 1416, | | | For 1 dose, Notify anesthesia if | | | patient is wheezing and does not | | | have a history of asthma or COPD | | | or current smoking., | | | Recovery/Phase I | | + +---+ | | | + +---+ | albuterol-ipratropium 2.5-0.5 | | | mg/3 mL nebulizer solution 3 mL | | | 3 mL, Nebulization, ONCE PRN, | | | Wheezing, Shortness of Breath, | | | Starting 08/12/18 at 1416, | | | For 1 dose, Recovery/Phase I | | + +---+ | [...] glucose < 50, | | | Starting 08/12/18 at 1213, | | | Repeat in 15 min [...] | | blood glucose < 50, Starting Wed | | | 08/12/18 at 1416, Give over 2 | | | min. Repeat in 15 min if blood | | | glucose remains < 70 mg/dL. | | | Repeat blood glucose in 30 min | | | once blood glucose > 70., | | | Recovery/Phase I | | + +---+ | | | + +---+ | diphenhydrAMINE (BENADRYL) 12.5 | | | mg/5 mL liquid 25 mg 25 mg, | | | Oral, EVERY 4 HOURS PRN, Itching, | | | Starting 08/12/18 at 1452, | | | Oral route is preferred., | | | Post-op/Phase II | | + +---+ | | | + +---+ | diphenhydrAMINE (BENADRYL) | | | injection 12.5 mg 12.5 mg, | | | Intravenous, EVERY 4 HOURS PRN, | | | Itching, Starting Fri08/12/18 at | | | 1452, Oral route is preferred., | | | Post-op/Phase II | | + +---+ | | | + +---+ | diphenhydrAMINE (BENADRYL) | | | tablet 25 mg 25 mg, Oral, EVERY | | | 4 HOURS PRN, Itching, Starting | | | Fri08/12/18 at 1452, Oral route | | | is preferred., Post-op/Phase II | | + +---+ | | | + +---+ | ePHEDrine 50 mg/mL injection 5 | | | mg 5 mg, Intravenous, EVERY 5 | | | MIN PRN, if SBP <90., Starting | | | Fri08/12/18 at 1416, Hold if HR | | | > 100. Maximum total dose 20mg., | | | Recovery/Phase I | | + +---+ | | | + +---+ | fentaNYL (PF) injection 25-50 | | | mcg 25-50 mcg, Intravenous, | | | EVERY 5 MIN PRN, Pain, Starting | | | Fri08/12/18 at 1416, Maximum | | | total dose 250 [...] | + +---+ + +-------+ +--------+---+---+ | gabapentin (NEURONTIN) capsule | Given | 08/12/20 | 600 mg | | | | 600 mg 600 mg, Oral, ONCE, Fri | | 18 12:20 | | | | | 18 at 1230, For 1 dose, | | PM PST | | | | | Pre-op | | | | | | + +-------+ +--------+---+---+ + +---+ | | | + +---+ | hydrALAZINE (APRESOLINE) | | | injection 5 mg 5 mg, | | | Intravenous, EVERY 20 MINUTES | | | PRN, For SBP > 180, DBP > 100, | | | Starting Fri08/12/18 at 1416, | | | Hold if HR > 100. Maximum total | | | dose 40 mg. Use labetalol first | | | if available., Recovery/Phase I | | + +---+ | | | + +---+ | HYDROmorphone (DILAUDID) | | | injection 0.2-0.5 mg 0.2-0.5 mg, | | | Intravenous, EVERY 5 MIN PRN, | | | Pain, Starting Fri08/12/18 at | | | 1416, Maximum total dose 4 mg. | | [...] DBP > 100, Starting | | | Fri08/12/18 at 1416, Hold if HR | | | < 60. Maximum total dose 300mg. | | | Notify anesthesia if patient | | | requires more than 50mg., | | | Recovery/Phase I | | + +---+ | | | + +---+ + +---------+ +--------+-------+---+ | lactated ringers (LR) infusion | New Bag | 08/12/20 | 1,000 | 100 | | | at 10-100 mL/hr, Intravenous, | | 18 5:15 | mLs | mL/hr | | | CONTINUOUS, Starting Fri08/12/18 | | PM PST | | | | | at 1230, TKO., Pre-op | | | | | | + +---------+ +--------+-------+---+ +---------+ +---+ +---+ | New Bag | 08/12/20 | | | | | | 18 1:57 | | | | | | PM PST | | | | +---------+ +---+ +---+ | New Bag | 08/12/20 | | 50 mL/hr | | | | 18 12:14 | | | | | | PM PST | | | | +---------+ +---+ +---+ + +---+ | | | + +---+ | meperidine (DEMEROL) injection | | | 12.5-25 mg 12.5-25 mg, | | | Intravenous, PRN, Shivering, | | | Starting 08/12/18 at 1416, | | | For 2 doses, May Repeat once in 5 | | | min., Recovery/Phase I | | + +---+ | | | + +---+ | metoclopramide (REGLAN) 5 mg/mL | | | injection 10 mg 10 mg, | | | Intravenous, EVERY 6 HOURS PRN, | | | Nausea, Vomiting, Starting Wed | | | 08/12/18 at 1416, For 2 doses, | | | Protect from light., | | | Recovery/Phase I | | + +---+ | | | + +---+ | ondansetron (ZOFRAN) injection | | | 4 mg 4 mg, Intravenous, ONCE | | | PRN, Nausea, Starting Wed | | | 08/12/18 at 1416, For 1 dose, | | | Recovery/Phase I | | + +---+ | | | + +---+ + +-------+ +------+---+---+ | oxyCODONE (ROXICODONE) tablet | Given | 08/12/20 | 5 mg | | | | 5-20 mg 5-20 mg, Oral, EVERY 3 | | 18 3:34 | | | | | HOURS PRN, Pain, Starting Wed | | PM PST | | | | | 08/12/18 at 1452, First dose must | | | | [...] | | | | + +-------+ +------+---+---+ + +---+ | | | + +---+ | promethazine (PHENERGAN) (IV | | | ONLY) injection 6.25 mg 6.25 mg, | | | Intravenous, EVERY 15 MIN PRN, | | | Nausea, Vomiting, Starting Wed | | | 08/12/18 at 1416, For 4 doses, | | | TAKE PRECAUTIONS WHEN | | | ADMINISTERING Dilute to 10-20mL | | | with NS. Give over 2-3 minutes | | | into large vein. Use ondansetron | | | first if both are ordered., | | | Recovery/Phase I | | + +---+ | | | + +---+ documented in this encounter
--- OUTSIDE RECORDS SUMMARY | ~2019-09-01 | XMS | Encounter Summary ---
Demographics + + + | Address | [address] | | | [place] [address] | + + + | Home Phone | | + + + | Preferred Language | Unknown | + + + | Marital Status | | + + + | Druze Affiliation | Unknown | + + + | Race | Unknown | + + + | Ethnic Group | Unknown | + + + Author + + + | Author | [facility] | | | and [place] | + + + | Organization | [facility] | | | and [place] | + + + | Address | Unknown | + + + | Phone | Unavailable | + + + Support + + + + + | Name | Relationship | Address | Phone | + + + + + | Alma Gramajo | ECON | [address] | | | | | [place] [address] | | + + + + + Care Team Providers + +------+ + | [facility] [employer] Name | Role | Phone | + [...] | | | | CENTER [address] | [place], [place] | (Primary Dx); Rectal | | | | [place], [place] | [address] | abnormality - | | | | [address] | | rectal wall | | | | [phone] | | thickening on CT | | [...] - 1.030 | [facility] | | | [place] | | | [facility] | | [...] [address] | [place] | [phone] | | [facility] | | [address] | | | - LABORATORY | | [...] ST. | [address] | [place], [place] | [phone] | | [facility] | | [address] | | | - LABORATORY | | [...] | mL/min/1.73m2 | [facility] | | | [facility] | RATE,ESTIMATED | | MEDICAL | | | | mL/min/1.33h5Mepk than | | CENTER - | | [...] + | [facility] | [address] | [place] | [phone] | | [facility] | | [address] | | | - LABORATORY | | [...] [address] | [place] | [phone] | | [facility] | | [address] | | | - LABORATORY | | [...] | | preliminary report was sent by [employer] with no significant | | | discrepancy. [...] | A preliminary report was sent by [employer] with no significant | | discrepancy. | [...] | | | | | Patient Address: [address] [place] [address] | | | | | | | Ct;[place] [address], | | | | | | + [...]
--- OUTSIDE RECORDS SUMMARY | ~2019-09-01 | XMS | Encounter Summary ---
Demographics + + + | Address | [address] | | | [place] [address] | + + + | Home Phone | | + + + | Preferred Language | Unknown | + + + | Marital Status | | + + + | Denominational Affiliation | Unknown | + + + | Race | Unknown | + + + | Ethnic Group | Unknown | + + + Author + + + | Author | [facility] | | | and Edmundo | + + + | Organization | [facility] | | | [...] | | | | | [place] [address] | | + + + + + Care Team Providers + +------+ + | Care Production Solderer Name | Role | Phone | + +------+ + | Priyanka Sal PA-C | PCP | | + +------+ + Reason for Visit +---------+ + | Reason | Comments | +---------+ + | Post Op | RIGHT groin pain | +---------+ + Evaluate & Treat (Routine) [...] | | | | obstruction | [place] [address] | [place] [address] | | | | | or gangrene | Phone: | Phone: | | | | | | [phone] | [phone] | | | | | | Fax: | Fax: | | | | | | [phone] | [phone] | +--------+ + + + + + Encounter Details +--------+---------+ + + + | Date | Type | Department | Care Team | Description | +--------+---------+ + + + | 01/24/ | Office | [facility] | Cris Gutierrez | S/P inguinal hernia | | 2019 | Visit | SURGERY [address] | MD [address] | repair (Primary Dx) | | | | [place], [place] | [address] | | | | | [address] | [place] [address] | | | | | [phone] | [phone] | | | | | | | [...] encounter Progress Notes Cris Gutierrez MD - 09/24/2018 3:15 PM PST Post op Note Referring Provider: Michael Engel MD HISTORY OF PRESENT ILLNESS Patient Identification: Zaheer Gramajo 1975 Is a 43 y.o. male, a patie nt of Priyanka Sal PA-C. Patient is here with alone. S: Date of surgery: 08/12/2018. Title of surgery: RIGHT inguinal hernia repair with me brandi. Physician notes: David is here today for follow-up visit after hernia repair 43 days ago because of some sha rp stinging pain just inferior to the incision. He also notices some fullness in the area j ust deep to the incision. A stinging pain occurs when he is standing and sometimes sitting or walking. This started intermittently about a week ago but seems to be a little bit more constant as time goes on in the last week. PAST MEDICAL HISTORY Past Medical History: Diagnosis [...] MESH; Surgeon: Cris Gutierrez MD; Loca tion: [facility] MAIN OR LUMBAR SPINE SURGERY N/A 02/05/2017 Procedure: L3-4 Extreme Lateral Interbody Fusion; Surgeon: Emil Garcia DO; Location: [facility] MAIN OR LUMBAR SPINE SURGERY [address] URETEROSCOPY Left 02/12/2018 Procedure: Left Ureteroscopy, Laser Lithotripsy and Stent; Surgeon: Satinder Elizondo MD; Location: [facility] MAIN OR Allergies Allergen Reactions Diazepam Anaphylaxis and Hives Fenofibrate Other (See Comments) Reaction not specified in outside medical records Medications: Outpatient Encounter Prescriptions as of 09/24/2018 Medication Sig Dispense Refill acetaminophen (TYLENOL) 500 [...] 6 hours as needed fo r Pain. 30 tablet 0 No facility-administered encounter medications on file as of 09/24/2018. Family History: His family history includes Cancer in his paternal grandmother; GERD in his mother; Heart d isease in his mother; Other (see comment) in his paternal grandfather. Social History: He reports that he has never smoked. His smokeless tobacco use includes Chew. He reports th at he does not drink alcohol or use drugs. PHYSICAL EXAM Pulse 96 | Temp 36 C (96.8 F) (Temporal) | Resp 18 | Ht 1.88 m (6' 2") | SpO2 98% | BMI 38.39 kg/m PE: Gen.: No apparent distress Right groin incision: Incision is clean and intact, healing ridge present, no erythema or i nduration, point tenderness just inferior to the incision and just above the thigh. ASSESSMENT/PLAN Zaheer was seen today for post op. Diagnoses and all orders for this visit: S/P inguinal hernia repair 43-year-old male 43 days postop status post right inguinal hernia repair with mesh doing we ll except for some point tenderness just inferior to the incision where he has sharp stingin g pain with standing and walking. This problem has been increasing over the last week. Thi s is likely the result of either wound contraction creating an irritation on her or a cutane ous nerve is waking up. I would like him to use ice over this area and massaged the skin an d try to do some stretching daily. If it is just scar contracture causing irritation on the cutaneous nerve then stretching and massage should help. The ice will help cut down on the tenderness over this area so that he can do stretching and massage it. On the see him sujey n in the office in a couple weeks to see if this is starting to help. Return to the office in 2 weeks. Cris Gutierrez MD CC PCP: Priyanka Sal PA-C Portions of this chart may have been created with [employer] voice recognition software. Occasi onal wrong-word or [...] Primary Other postprocedural status | + + documented in this encounter
--- OUTSIDE RECORDS SUMMARY | ~2019-09-01 | XMS | Encounter Summary ---
Demographics + + + | Address | [address] | | | [place] [address] | + + + | Home Phone [...] Organization | [facility] [...] | | | | | [place] [address] | | + + + + + Care Team Providers + +------+ + | Care Mailing Clerk Name | Role | Phone | + +------+ + | Hudson Nair | PCP | | | MD | | | + +------+ + Encounter Details +--------+ + + + + | Date | Type | Department | Care Team | Description | +--------+ + + + + | 06/30/ | Anti-coag | [facility] | Fuad Childs, | DVT of leg (deep | | 2013 | visit | CL[facility] [address] | [facility] [address] | venous thrombosis) | | | | [address] [place], | [place], [place] | ([facility]) (Primary Dx); | | | | [place] [phone] | [address] | Monitoring for | | | | [phone] | | anticoagulant use | +--------+ + [...] encounter Progress Notes Fuad Childs ARNP - 06/30/2013 1:29 PM PDTNew warfarin schedule. Code 497 TEACHING General Information: Coumadin booklet and information sheet provided Reason for taking drug (warfarin vs coumadin) and notify if change Dose and time to take Do not "make up" missed dose instructed to call us Medications and Food: Medication interactions, ayla ABX, herbs,vitamins Use tylenol only for pain relief; no extra ASA, Motrin, Aleve, read labels on cold medicati ons Vitamin K food interactions and moderation of these foods ETOH- 6 OZ of wine per day Signs and Symptoms of Hyper-Coagulation: Nose bleeds > 5 minutes, bleeding gums, blood in urine or stool,unexplained bruising, traum a or fall,stroke symptoms Importance of calling when: Scheduled for dental work or medical procedures Medical Alert documented in this encounter Plan of Treatment Not on filedocumented as of this encounter Procedures + +--------+ + + + | Procedure Name | Priori | Date/Time | Associated Diagnosis | Comments | | | ty | | | | + +--------+ + + + | POC PT/INR | Routin | 06/30/2013 | | Results for this | | FINGERSTICK | e | | | procedure are in the | | | | | | results section. | + +--------+ + + + documented in this encounter Results POCT PT/INR fingerstick (06/30/2013) + +-------+ + + + | Component [...] + + + | INR, POC | 1.3 | | | | + +-------+ + [...] anticoagulants | + + documented in this encounter
--- OUTSIDE RECORDS SUMMARY | ~2019-09-01 | XMS | Encounter Summary ---
Demographics + + + | Address | [address] | | | [place] [address] | + + + | Home Phone [...] + | Organization | [facility] | | | and [place] | + + + | Address | Unknown | + + + | Phone | Unavailable | + + + Support + + + + + | Name | Relationship | Address | Phone | + + + + + | Alma Gramajo | ECON | [address] | | | | | [place] [address] | | + + + + + Care Team Providers + +------+ + | Care Engraver Ornamental Design Name | Role | Phone | + [...] | | | | | | | [place] | | | | | | | ARTHRODESIS | | | | | | | POSTERIOR/PO | | | | | | | STEROLATERAL | | | | | | | LUMBAR MT | | | | | | | LUMBAR SPINE | | | | | | | | | | | | | | FUSION,ANTER | | | | | | | APPRCH MT | | | | | | | [...] + + | 02/05/ | Hospital | [facility] | Emil Garcia, | Gait abnormality | | 2017 - | Encounter | [facility] | DO [address] | (Primary Dx) | | | | [address] | [address] [place], [place] | | | 02/09/ | | [place] [address] | [id number] | | | 2016 | | [phone] | | | +--------+ + + + [...] + + + | Blood Pressure | 117/71 | 02/09/2017 7:49 AM | | | | | PDT | | + + + + + | Pulse | 79 | 02/09/2017 7:49 AM | | | | | PDT | | + + + + + | Temperature | 36.5 C (97.7 F) | 02/09/2017 7:49 AM | | | | | PDT | | + + + + + | Respiratory Rate | 16 | 02/09/2017 7:49 AM | | | | | PDT | | + + + + + | Oxygen Saturation | 94% | 02/09/2017 7:49 AM | | | | | PDT | | + + + + + | Inhaled Oxygen | - | - | | | Concentration | | | | + + + + + | Weight | 130.6 kg (288 lb) | 02/05/2017 7:25 AM | | | | | PDT | | + + + + + | Height | 188 cm (6' 2") | 02/05/2017 7:25 AM | | | | | PDT | | + + + + + | Body Mass Index | 36.98 | 02/05/2017 7:25 AM | | | | | PDT [...] documented as of this encounter Discharge Summaries Emil Garcia DO - 02/09/2017 7:37 AM PDTFormatting of this note might be different fro m the original. Date of admission: 02/05/2017 Date of discharge: 02/09/17 Admission diagnosis: 1. Spondylosis L3-4. 2. Spinal stenosis L3-4. 3. Lumbar radiculopathy. 4. Lumbago. Discharge diagnosis: same Procedure performed: 1. Anterior lumbar interbody arthrodesis L3-4, lateral approach. 2. Postereolateral arthrodesis L3-4. 3. PEEK interbody L3-4. 4. Posterior spinal instrumentation L3-L4. 5. Laminectomies L3, L4 for the purpose of decompression. 6. Use of allograft. 7. Use of microscope for microsurgical techniques. 8. Co-registration with navigation system for spinal navigation. Service: Neurosurgery, Dr. Garcia, attending. Hospital course: Zaheer Gramajo was admitted 02/05/2017 to undergo elective L3-4 fu maryann. He tolerated the procedure well. Postoperatively, his course was eventful for ileus wh ich resolved after a day of NG tube suction. He is tolerating his orals, ambulating, and voi ding. He is requesting to be discharged today. Disposition: Discharge to home. Condition: Improving Special instructions: Patient is instructed to follow-up with me in 1 month. He is to avoid any extreme bending o r twisting of his back or lifting more that 5 pounds. He verbally agrees to comply with the instructions. Brace status: B Medications: Discharge Medications New Medications Details diazePAM 5 mg tablet Take 1 tablet by mouth every 6 hours as needed (muscle spasm). aka: VALIUM lactulose 10 g/15 mL liquid Take 15-30 mLs by mouth Daily as needed for Constipation. oxyCODONE 10 MG Tabs Take 1-2 tablets by mouth every 4 hours as needed for Pain (muscle spasm). Unchanged Medications Details lovastatin 20 mg tablet Take 40 mg by mouth nightly. aka: MEVACOR Vitamin D2 2000 units Tabs Take 2,000 Units by mouth Daily. Discontinued Medications ibuprofen 600 MG tablet aka: GLADIS CORONA documented in this en counter Discharge Instructions Instructions Emil Garcia DO - 02/09/2017Discharge Instructions for Lumbar Fusion You had a lumbar fusion. During this procedure, your doctor locked together (fused) some of the bones in your spine. This limits the movement of these bones to help relieve your pain. Here s what you need to know about home care following a spinal fusion. Activity Arrange your household to keep the items you need within reach. Remove electrical cords, throw rugs, and anything else that may cause you to fall. Use a walkeror handrails until your balance, flexibility, and strength improve. And re member to ask for help from others when you need it. Free up your hands so that you can use them to keep balance. Use a brenda pack, apron, or pockets to carry things. Be sure not to carry too much at once. Don t bend or twist at the waist, or raise your hands over your head for the first two weeks after your surgery. Don t lift anything heavier than 5 pounds for the first four weeks after surgery. Don t sit for more than30 to 45 minutes at a time. Take frequent short walks. They a re the gonzalez to your recovery. As your back feels better please gradually increase the distanc e you walk as discussed with your provider. Don t drive until your doctor says it s OK. And never drive while you are taking opi oid pain medication. Nap if you are tired, but don t stay in bed all day. Use chairs with arms. The arms make it easier for you to stand up and sit down. If you have not yet received instructions about physical therapy, ask your doctor about them. Incision care Check your incision daily for redness, tenderness, or drainage. Don t soak your wound in water (no hot tubs, bathtubs, swimming pools) until your doct or says it s OK. As long as you keep your incision dry you can shower as desired. After 5 days you may le t shower water run over the incision but do not submerse the incision under water until afte r you see your provider. Gently pat the incision dry. Don t rub it, or apply creams or lot ions. And if you feel unsteady while standing to shower, use a shower stool or chair. Other home care Use nonslip bath mats, grab bars, an elevated toilet seat, and a shower chair in your ba throom. Take your medication exactly as directed. Don t take nonsteroidal anti-inflammatory medications (NSAIDs), such as ibuprofen. The y may delay or prevent proper fusion of the spine. If you smoke, stop! This will be one of the most important things you can do to help you recover from surgery. Wear your back brace, if one was prescribed, as directed by your doctor. Follow-up Most patients will be seen approximately 4 weeks after surgery. Be sure to get your 1 mo nth post op x-rays prior to your 1 month post op appointment before your appointment. [id number] [employer]. [address] [place] [address]. All righ ts reserved. This information is not intended as a substitute for professional medical care. Always follow your healthcare professional's instructions. documented in this encounter Medications at Time [...] documented as of this encounter Progress Notes Emil Garcia DO - 02/09/2017 7:31 AM PDTFormatting of this note might be different fro m the original. Date of service: 02/09/17 Subjective The patient was seen and examined by me today. He says his abdominal distension is resolved. He had a bowel movement yesterday and feels m uch better. His back and leg pain are minimal. He would like to go home today. Objective Vitals: 02/08/17 2331 BP: 114/69 Pulse: 83 Resp: 16 Temp: 37.5 C (99.5 F) No results found for this or any previous visit (from the past 24 hour(s)). Level of consciousness: Alert and orientated to person, place, and time. Motor: Moving all extremities well. Sensations: Sensation intact. Incision: Dressing is clean, dry, and intact. Assessment Zaheer Gramajo is a 41 y.o. male s/p DLIF L3-4 postoperative day # 4. Plan -Doing well -Ileus - resolved -Increase diet/activity -PT/OT with brace status B -Pain control -DVT prophylaxis -DC plan: home today Emil Bangura DO - 02/08/2017 8:15 AM PDT Date of service: 02/08/17 Subjective The patient was seen and examined by me today. He says his abdominal distension is much improved. He has been passing gas. He requests pau t his NG tube be removed. He says he was unable to get sleep last night due to the nausea ca used by the NG tube. His back and leg pain are minimal. He would like to go home tomorrow as long as things go well today. Objective Vitals: 02/08/17 0416 BP: 152/77 Pulse: 91 Resp: 20 Temp: 35.9 C (96.6 F) No results found for this or any previous visit (from the past 24 hour(s)). Level of consciousness: Alert and orientated to person, place, and time. Motor: Moving all extremities well. Sensations: Sensation intact. Incision: Dressing is clean, dry, and intact. GOLDEN 28 mL Assessment Zaheer Gramajo is a 41 y.o. male s/p DLIF L3-4 postoperative day # 3. Plan -Doing well -Ileus - now passing gas. Will remove NG tube and start clear liquid diet which can be adva nced as tolerated -Increase diet/activity -PT/OT with brace status B -Pain control -DVT prophylaxis -DC plan: home with [facility] tomorrow likely Nyasia Mcrae RRT - 02/07/2017 9:36 PM PDTNursivette informed of pt's need for O2. Arcenio Gracia RN - 02/07/2017 11:14 AM Shabnam HAGER informed Dr. Garcia, that the PT is very lucy seated and is refusing any interventions, will not take bowel medications and is not ambulat ing at all. Patient states "I hate this feeling, my belly hurts and I can not take it any,mo re". Since this interaction, new orders are placed. This RN has informed that patient and he is willing to take these interventions. Electronically signed by: Arcenio King RN 02/07/2017 11:19 Pena PA - 02/07/2017 7:25 AM PDTFormatting of this note might be different from the origin al. [facility] NEUROSURGERY PROGRESS NOTE PATIENT NAME: Zaheer Gramajo AGE: 41 y.o. DATE OF SERVICE: 02/07/2017 7:25 S: The patient c/o manageable back pain. The patient has been mobilizing well. The leg sy mptoms are at improved from preoperatively. He is in quite a bit of discomfort all due to his abdominal pain. The patient has been voiding but no flatus or BM. O: CURRENT MEDICATIONS: Current Facility-Administered Medications Medication Dose Route Frequency Provider Last Rate Last Dose acetaminophen (TYLENOL) tablet 650 mg 650 mg Oral Q4H PRN Adal Roberto PA-C aluminum & magnesium hydroxide-simethicone (MAALOX PLUS REGULAR STRENGTH) 200-200-20 mg /5 mL suspension 30 mL 30 mL Oral Q6H PRN Adal Roberto PA-C atorvaSTATin (LIPITOR) tablet 10 mg 10 mg Oral Nightly Adal Roberto PA-C 10 mg at 02/06/17 2145 bisacodyl (DULCOLAX) suppository 10 mg 10 mg Rectal Daily PRN LISA Wheeler calcium carbonate (TUMS) chewable tablet 1,000 mg 1,000 mg Oral Q2H PRN Adal Roberto PA-C diazePAM (VALIUM) injection 2.5-5 mg 2.5-5 mg Intravenous Q6H PRN Adal Roberto PA-C diazePAM (VALIUM) tablet 5 mg 5 mg Oral Q6H PRN Adal Roberto PA-C 5 mg at 0854 docusate sodium (COLACE) capsule 100 mg 100 mg Oral BID Adal Roberto PA-C 10 0 mg at 02/06/17 2144 enalaprilat (VASOTEC) injection 1.25 mg 1.25 mg Intravenous Q6H PRN Adal Sergio Andrew t, PA-C labetalol (TRANDATE) 5 mg/mL injection 10 mg 10 mg Intravenous Q1H PRN Adal Roberto PA-C lactulose liquid 30 mL 30 mL Oral BID Adal Roberto PA-C 30 mL at 02/06/17 21 44 magnesium hydroxide (MILK OF MAGNESIA) 400 mg/5 mL suspension 30 mL 30 mL Oral Nightly PRN Adal Roberto PA-C menthol (HALLS COUGH DROP) lozenge 1 lozenge 1 lozenge Buccal Q2H PRN Adal wiggins PA-C metoclopramide (REGLAN) 5 mg/mL injection 10 mg 10 mg Intravenous Q4H PRN Adal Roberto PA-C metoclopramide (REGLAN) tablet 10 mg 10 mg Oral Q4H PRN Adal Roberto PA-C morphine injection 2-8 mg 2-8 mg Intravenous Q2H PRN Adal Roberto PA-C 2 mg at 02/05/17 2104 ondansetron (ZOFRAN ODT) disintegrating tablet 4 mg 4 mg Oral Q6H PRN Adal wiggins PA-C 4 mg at 02/06/17 0901 ondansetron (ZOFRAN) injection 4 mg 4 mg Intravenous Q6H PRN Aadl Roberto PA-C oxyCODONE (ROXICODONE) tablet 5-20 mg 5-20 mg Oral Q4H PRN Adal Roberto PA-C 10 mg at 02/06/17 2145 phenol (CHLORASEPTIC) spray 1-2 spray 1-2 spray Mouth/Throat Q3H PRN Adal barnett PA-C polyethylene glycol (MIRALAX) powder 17 g 17 g Oral Daily PRN LISA Wheeler senna (SENOKOT) tablet 8.6 mg 8.6 mg Oral BID Adal Roberto PA-C 8.6 mg at 2144 sodium chloride 0.9% (NS) infusion Intravenous Continuous Emil Garcia DO 100 mL/h r at 02/05/17 1700 ALLERGIES: No Known Allergies PHYSICAL EXAMINATION: Temp: [37 C (98.6 F)-38 C (100.4 F)] 37.8 C (100 F) Pulse: [71-93] 90 Resp: [16-20] 16 BP: (114-136)/(62-67) 118/65 Intake/Output Summary (Last 24 hours) at 02/07/17 0725 Last data filed at 02/07/17 0600 Gross per 24 hour Intake 1548 ml Output 1651 ml Net -103 ml GENERAL: Zaheer Gramajo is in no acute distress with unlabored respirations. HEENT: HEAD/FACE: EYES: Normocephalic and atraumatic. There are no areas of recent trauma. Normal sclerae without icterus. CHEST: Clear. HEART: Regular. EXTREMITIES: No edema or swelling. SCD's BACK: The back incisions are dress and a drain is in place with expected output. NEUROLOGICAL EXAM: MENTAL STATUS: The patient is awake, alert, and oriented. He follows simple and complex commands. He speech is fluent, his comprehends speech well, and his repeats well. He has no apparent deficits with short or [employer] memory. MOTOR EXAM: Motor strength is stable SENSORY EXAM: Sensory exam is stable Abdomen:distended and firm. Very little in the way of bowel tones. 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 - Medically stable - Mobilize, PT/OT - SCD's - Mild ileus. Will adjust medication will order mag citrate and relistor. - Drain output is low and it can be removed now - Disp: Likely home in 1-2 days ELECTRONICALLY SIGNED BY: LAMIN Lindsay, 02/07/2017 7:25 Berhane Aparicio PA - 02/06/2017 7:24 AM PDT [facility] NEUROSURGERY PROGRESS NOTE PATIENT NAME: Zaheer Gramajo AGE: 41 y.o. DATE OF SERVICE: 02/06/2017 7:24 S: The patient c/o manageable back pain. The patient has been mobilizing well. The leg sy mptoms are at improved from preoperatively. He currently rates his pain as a 5/10. He apoorva es any significant leg pain. He has had right leg weakness for a long time. He did not do an y significant walking and will not be sure if his leg symptoms are improved until he walks s ome more. He lives at home with his who is planning on staying with him when he DC home . The patient has been voiding and had a bowel movement. O: CURRENT MEDICATIONS: Current Facility-Administered Medications Medication Dose Route Frequency Provider Last Rate Last Dose acetaminophen (TYLENOL) tablet 650 mg 650 mg Oral Q4H PRN Adal Roberto PA-C aluminum & magnesium hydroxide-simethicone (MAALOX PLUS REGULAR STRENGTH) 200-200-20 mg /5 mL suspension 30 mL 30 mL Oral Q6H PRN Adal Roberto PA-C atorvaSTATin (LIPITOR) tablet 10 mg 10 mg Oral Nightly Adal Roberto PA-C 10 mg at 02/05/172103 bisacodyl (DULCOLAX) suppository 10 mg 10 mg Rectal Daily PRN LISA Wheeler calcium carbonate (TUMS) chewable tablet 1,000 mg 1,000 mg Oral Q2H PRN Adal Roberto PA-C diazePAM (VALIUM) injection 2.5-5 mg 2.5-5 mg Intravenous Q6H PRN Adal Roberto PA-C diazePAM (VALIUM) tablet 5 mg 5 mg Oral Q6H PRN Adal Roberto PA-C docusate sodium (COLACE) capsule 100 mg 100 mg Oral BID Adal Roberto PA-C 10 0 mg at 02/05/172103 enalaprilat (VASOTEC) injection 1.25 mg 1.25 mg Intravenous Q6H PRN Adal ohng PA-C labetalol (TRANDATE) 5 mg/mL injection 10 mg 10 mg Intravenous Q1H PRN Adal Roberto PA-C lactulose liquid 30 mL 30 mL Oral BID Adal Roberto PA-C 30 mL at 02/05/17 21 04 [START ON 02/07/2017] magnesium hydroxide (MILK OF MAGNESIA) 400 mg/5 mL suspension 30 mL 30 mL Oral Nightly PRN Adal Roberto PA-C menthol (HALLS COUGH DROP) lozenge 1 lozenge 1 lozenge Buccal Q2H PRN Adal wiggins PA-C metoclopramide (REGLAN) 5 mg/mL injection 10 mg 10 mg Intravenous Q4H PRN Adal Roberto PA-C metoclopramide (REGLAN) tablet 10 mg 10 mg Oral Q4H PRN Adal Roberto PA-C morphine injection 2-8 mg 2-8 mg Intravenous Q2H PRN Adal Roberto PA-C 2 mg at 02/05/17 2104 ondansetron (ZOFRAN ODT) disintegrating tablet 4 mg 4 mg Oral Q6H PRN Adal wiggins PA-C ondansetron (ZOFRAN) injection 4 mg 4 mg Intravenous Q6H PRN Adal Roberto PA-C oxyCODONE (ROXICODONE) tablet 5-20 mg 5-20 mg Oral Q4H PRN Adal Roberto PA-C 10 mg at 02/06/17 0401 phenol (CHLORASEPTIC) spray 1-2 spray 1-2 spray Mouth/Throat Q3H PRN Adal barnett PA-C polyethylene glycol (MIRALAX) powder 17 g 17 g Oral Daily PRN LISA Wheeler senna (SENOKOT) tablet 8.6 mg 8.6 mg Oral BID Adal Roberto PA-C 8.6 mg at 2104 sodium chloride 0.9% (NS) infusion Intravenous Continuous Emil Garcia DO 100 mL/h r at 02/05/17 1700 ALLERGIES: No Known Allergies PHYSICAL EXAMINATION: Temp: [35.9 C (96.6 F)-37 C (98.6 F)] 37 C (98.6 F) Pulse: [57-94] 71 Resp: [12-24] 18 BP: (106-154)/(56-96) 110/68 Intake/Output Summary (Last 24 hours) at 02/06/17 0724 Last data filed at 02/06/17 0500 Gross per 24 hour Intake 4303 ml Output 2475 ml Net 1828 ml GENERAL: Zaheer Gramajo is in no acute distress with unlabored respirations. HEENT: HEAD/FACE: EYES: Normocephalic and atraumatic. There are no areas of recent trauma. Normal sclerae without icterus. CHEST: Clear. HEART: Regular. EXTREMITIES: No edema or swelling. SCD's BACK: The back incisions are dress and a drain is in place with expected output. NEUROLOGICAL EXAM: MENTAL STATUS: The patient is awake, alert, and oriented. He follows simple and complex commands. He speech is fluent, his comprehends speech well, and his repeats well. He has no apparent deficits with short or [facility] memory. MOTOR EXAM: Motor strength is stable. Right foot in a quite plantar flexed resting position . Strength of dorsiflexion on that foot is a 4-. Otherwise 5/5. 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 - Medically stable - Mobilize, PT/OT - SCD's - Patient is having adequate bowel function without any concerns. They were counseled that full bowel function may not return for a few days - Drain output is as expected. Continue drain - Disp: Likely home in 1-2 days. If we see him struggling today we will look into SNF for D C on Friday. ELECTRONICALLY SIGNED BY: LAMIN Lindsay, 02/06/2017 7:24 documented in this encounter Plan of Treatment + +------+--------+ + + | Name | Type | Priori | Associated Diagnoses | Order Schedule | | | | ty | | | + +------+--------+ + + | DME: Walker | DME | Routin | Gait abnormality | DME 1 Time for 1 | | | | e | | Occurrences starting | | | | | | 02/05/2017 until | | | | | | 02/05/2017 | + +------+--------+ + + documented as of this encounter Procedures + +--------+ + + + | Procedure Name | Priori | Date/Time | Associated Diagnosis | Comments | | | ty | | | | + +--------+ + + + | RESPIRATORY THERAPY | Routin | 02/05/2017 | | | | COMMUNICATION | e | 3:57 PM | | | | | | PDT | | | + +--------+ + + + | XR LUMBAR SPINE 2 OR | STAT | 02/05/2017 | | Results for this | | 3 VW | | 3:10 PM | | procedure are in the | | | | PDT | | results section. | + +--------+ + + + | FL CHARLES STATS NO | Routin | 02/05/2017 | | Results for this | | CHARGE | e | 12:58 PM | | procedure are in the | | | | PDT | | results section. 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 | | | (XLIF) | | PDT | radiculopathy, | | | | | | lumbar region | | | | | | (M47.26), Lumbar | | | | | | stenosis (M48.06), | | | | | | Lumbar radicular | | | | | | pain (M54.16), | | | | | | Chronic midline low | | | | | | back pain with | | | | | | bilateral sciatica | | | | | | (M54.41, M54.42, | | | | | | G89.29), Right leg | | | | | | weakness (M62.81) | | + +--------+ + + + +---+--------+ | | Case | | | Notes | | | | | | Origin | | | al | | | Reques | | | t | | | Inform | | | ation | | | Sent | | | Over | | | 01/29/ | | | 2016:I | | | nstrum | | | ents/S | | | pecial | | | | | | Equipm | | | ent: | | | C-Arm, | | | | | | Drill, | | | | | | Micros | | | cope, | | | [employer], | | | | | | O-Arm, | | | | | | Naviga | | | tion | | | Instru | | | ments, | | | | | | Stealt | | | hBiolo | | | gics: | | | Infuse | | | , | | | Grafto | | | n | | | Table: | | | | | | [place] | | | n | | | [place], | | | Jackso | | | n | | | clinical evaluator | | | EP: | | | Doug | | | Pan | | | , Matt | | | Und | | | erwood | | | Implan | | | ts: | | | DLIF | | | Cage, | | | [place] | | | Est | | | time: | | | 180min | +---+--------+ | | | | | Specia | | | l | | | Needs | | | Doug | | | | | | Pan | | | - | | | Carolee | | | ; Matt | | | | | | Underw | | | ood - | | | DLIF | | | Cage | +---+--------+ + +--------+ +---+ + | TYPE AND SCREEN | Routin | 02/05/2017 | | Results for this | | | e | 7:42 AM | | procedure are in the | | | | PDT | | results section. | + +--------+ +---+ + documented in this encounter Results XR Lumbar Spine 2 or 3 Vw (02/05/2017 3:10 PM PDT) + + | Specimen | + + | | + + + + + | Narrative | Performed At | + + + | XR LUMBAR SPINE 2 OR 3 VW 02/05/2017 3:09 PM HISTORY: post op. | [facility] | | COMPARISON: Multiple priors. FINDINGS: There has been interval | | | placement of hardware for posterior fusion from L3 through L4 with | | | spacer hardware at L3-4. There is mild spondylosis. Bone | | | mineralization is normal. Vertebral body height are preserved with no | | | evidence for compression fractures. Mild to moderate disc narrowing | | | are at L1-2 and L2-3. Facet joints are intact. Visualized ribs and | | | pelvic osseous structures show no acute findings. A left posterior | | | drainage catheter is present. IMPRESSION - Interval posterior | | | fusion from L3 through L4. Dictated and Signed by: Cheri Ceja MD Electronically signed: 02/05/2017 3:12 PM | | + + + + + | Procedure Note | + + | Raoul, Rad Results In - 02/05/2017 3:16 PM PDT XR LUMBAR SPINE 2 OR 3 VW 02/05/2017 3:09 | | PMHISTORY: post op.COMPARISON: Multiple priors.FINDINGS:There has been interval | | placement of hardware for posterior fusion from [id number] L4 with spacer hardware at | | L3-4. There is mild spondylosis. Bonemineralization is normal. Vertebral body height are | | preserved with no evidencefor compression fractures. Mild to moderate disc narrowing | | are at L1-2 and L2-3.Facet joints are intact. Visualized ribs and pelvic osseous | | structures show noacute findings. A left posterior drainage catheter is | | present.IMPRESSION -Interval posterior fusion from L3 through L4.Dictated and Signed by: | | Reynaldo Glaser MD Electronically signed: 02/05/2017 3:12 PM | |mineralization is normal. Vertebral body height are preserved with no evidence | |for compression fractures. Mild to moderate disc narrowing are at L1-2 and L2-3. | |Facet joints are intact. Visualized ribs and pelvic osseous structures show no | |acute findings. A left posterior drainage catheter is present. | | | |IMPRESSION - | |Interval posterior fusion from L3 through L4. | | | |Dictated and Signed by: Reynaldo Glaser MD | | Electronically signed: 02/05/2017 3:12 PM | + + + +---------+ + + | Performing | Address | City/State/Zipcode | Phone Number | | Organization | | | | + +---------+ + + | [facility] | | | | + +---------+ + + [place] Mit[place] Statviviana No Charge (02/05/2017 12:58 PM PDT) + [...] | | | + +---------+ + + Type and Screen (02/05/2017 7:42 AM PDT) + + + + + + | Component | Value | Ref Range | Performed | Pathologist | | | | | At | Signature | + + + + + + | [facility] | O | | [facility] | [facility] | [facility] - | | | | | | BLOOD BANK | | + + + + + + | Rh Type | Positive | | [facility] | | [facility] | [facility] - | | | | | | [facility]LOOD BANK | | + + + + + + | Antibody | Negative | | [facility] | | | Screen | | | [facility] | | | | | | [facility] | | | | | | [facility] - | | | | | | BLOOD BANK | | + + + + + + + + | Specimen | + + | Blood | + + + + + + + | Performing | Address | City/State/Zipcode | Phone Number | | Organization | | | | + + + + + | [facility] | [address] | [place] | | | [facility] | | [address] | | | - BLOOD BANK | | | | + + + + + documented in this encounter Visit Diagnoses + + | Diagnosis | + + | Gait abnormality - Primary Abnormality of gait | + + documented in this encounter Administered Medications + +--------+ +--------+------+------+ | Medication Order | MAR | Action | Dose | Rate | Site | | | Action | Date | | | | + +--------+ +--------+------+------+ | acetaminophen (TYLENOL) tablet | Given | 02/09/20 | 650 mg | | | | 650 mg 650 mg, Oral, EVERY 4 | | 17 5:11 | | | | | HOURS PRN, Pain, Fever, Starting | | PM PDT | | | | | 02/05/17 at 1529, Post-op/Phase | | | | | | | II | | | | | | + +--------+ +--------+------+------+ +---+---+ | | | +---+---+ + +-------+ +--------+---+---+ | acetaminophen (TYLENOL) tablet | Given | 02/06/20 | 975 mg | | | | 975 mg 975 mg (rounded from | | 17 7:42 | | | | | 1,000 mg), Oral, ONCE, Fri02/05/17 | | AM PDT | | | | | at 0745, For 1 dose, Pre-op | | | | | | + +-------+ +--------+---+---+ +---+---+ | | | +---+---+ + +-------+ +--------+---+---+ | aluminum & magnesium | Given | 02/08/20 | 30 mLs | | | | hydroxide-simethicone (MAALOX | | 17 11:53 | | | | | PLUS REGULAR STRENGTH) 200-200-20 | | AM PDT | | | | | mg/5 mL suspension 30 mL 30 mL, | | | | | | | Oral, EVERY 6 HOURS PRN, | | | | | | | Indigestion, Starting Fri02/05/17 | | | | | | | at 1529, Shake well., | | | | | | | Post-op/Phase II | | | | | | + +-------+ +--------+---+---+ +---+---+ | | | +---+---+ + +-------+ +-------+---+---+ | atorvaSTATin (LIPITOR) tablet | Given | 02/09/20 | 10 mg | | | | 10 mg 10 mg, Oral, NIGHTLY, | | 17 8:37 | | | | | First dose on Fri02/05/17 at 2100, | | PM PDT | | | | | Post-op/Phase II | | | | | | + +-------+ +-------+---+---+ +-------+ +-------+---+---+ | Given | 02/08/20 | 10 mg | | | | | 17 9:20 | | | | | | PM PDT | | | | +-------+ +-------+---+---+ | Given | 02/07/20 | 10 mg | | | | | 17 9:45 | | | | | | PM PDT | | | | +-------+ +-------+---+---+ +---+---+ | | | +---+---+ + +---------+ +-----+-------+---+ | ceFAZolin in saline (ANCEF) | New Bag | 02/07/20 | 2 g | 100 | | | IVPB 2 g 2 g, Intravenous, | | 17 1:20 | | mL/hr | | | Administer over 30 Minutes, EVERY | | AM PDT | | | | | 8 HOURS INTERVAL, First dose on | | | | | | | 02/05/17 at 1800, For 2 doses, | | | | | | | Start 8 hours after previous | | | | | | | dose. Last dose to be given | | | | | | | within 24 hours of surgery end | | | | | | | time. Keep in refrigerator., | | | | | | | Post-op/Phase II, Indications: | | | | | | | Surgical Prophylaxis | | | | | | + +---------+ +-----+-------+---+ +---------+ +-----+-------+---+ | New Bag | 02/06/20 | 2 g | 100 | | | | 17 6:32 | | mL/hr | | | | PM PDT | | | | +---------+ +-----+-------+---+ +---+---+ | | | +---+---+ + +-------+ +------+---+---+ | diazePAM (VALIUM) injection | Given | 02/08/20 | 5 mg | | | | 2.5-5 mg 2.5-5 mg, Intravenous, | | 17 12:44 | | | | | EVERY 6 HOURS PRN, Muscle spasms, | | PM PDT | | | | | Starting 02/05/17 at 1529, Use | | | | | | | if methocarbamol and | | | | | | | cyclobenzaprine ineffective or | | | | | | | not ordered. Use PO option unless | | | | | | | NPO status or unable to | | | | | | | tolerate., Post-op/Phase II | | | | | | + +-------+ +------+---+---+ +---+---+ | | | +---+---+ + +-------+ +------+---+---+ | diazePAM (VALIUM) tablet 5 mg | Given | 02/07/20 | 5 mg | | | | 5 mg, Oral, EVERY 6 HOURS PRN, | | 17 8:54 | | | | | Muscle spasms, Starting Wed | | AM PDT | | | | | 02/05/17 at 1529, Use if | | | | | | | methocarbamol and cyclobenzaprine | | | | | | | ineffective or not ordered., | | | | | | | Post-op/Phase II | | | | | | + +-------+ +------+---+---+ +---+---+ | | | +---+---+ + +-------+ +--------+---+---+ | docusate sodium (COLACE) | Given | 02/10/20 | 100 mg | | | | capsule 100 mg 100 mg, Oral, 2 | | 17 8:16 | | | | | TIMES DAILY, First dose on Fri | | AM PDT | | | | | 02/05/17 at 2100, First line agent | | | | | | | for constipation, Post-op/Phase | | | | | | | II | | | | | | + +-------+ +--------+---+---+ +-------+ +--------+---+---+ | Given | 02/09/20 | 100 mg | | | | | 17 8:37 | | | | | | PM PDT | | | | +-------+ +--------+---+---+ | Given | 02/09/20 | 100 mg | | | | | 17 9:45 | | | | | | AM PDT | | | | +-------+ +--------+---+---+ +---+---+ | | | +---+---+ + +-------+ +-------+---+ + | enoxaparin (LOVENOX) 40 mg/0.4 | Given | 02/10/20 | 40 mg | | Abdomen- | | mL injection 40 mg 40 mg, | | 17 8:16 | | | RLQ | | Subcutaneous, EVERY 24 HOURS | | AM PDT | | | | | (Daily), First dose on Fri02/07/17 | | | | | | | at 1130 | | | | | | + +-------+ +-------+---+ + +-------+ +-------+---+ + | Given | 02/09/20 | 40 mg | | Abdomen- | | | 17 9:46 | | | LLQ | | | AM PDT | | | | +-------+ +-------+---+ + | Given | 02/08/20 | 40 mg | | Abdomen- | | | 17 11:57 | | | RUQ | | | AM PDT | | | | +-------+ +-------+---+ + +---+---+ | | | +---+---+ + +-------+ +--------+---+---+ | fentaNYL (PF) injection 25-50 | Given | 02/06/20 | 25 mcg | | | | mcg 25-50 mcg, Intravenous, | | 17 2:29 | | | | | EVERY 5 MIN PRN, Pain, Starting | | PM PDT | | | | | Fri02/05/17 at 1259, Maximum total | | | | | | | dose 250 mcg. PACU IV Narcotic | | | | | | | Priority: Only use fentanyl for | | | | | | | immediate post-op pain (one dose) | | | | | | | or breakthrough pain when any | | | | | | | other IV narcotics ordered have | | | | | | | been ineffective (if ordered). | | | | | | | If both morphine and | | | | | | | hydromorphone are ordered, use | | | | | | | morphine first, and use | | | | | | | hydromorphone if morphine | | | | | | | ineffective., Recovery/Phase I | | | | | | + +-------+ +--------+---+---+ +---+---+ | | | +---+---+ + +-------+ +--------+---+---+ | gabapentin (NEURONTIN) capsule | Given | 02/06/20 | 600 mg | | | | 600 mg 600 mg, Oral, ONCE, Fri | | 17 7:42 | | | | | 02/05/17 at 0745, For 1 dose, | | AM PDT | | | | | Pre-op | | | | | | + +-------+ +--------+---+---+ +---+---+ | | | +---+---+ + +-------+ +--------+---+---+ | HYDROmorphone (DILAUDID) | Given | 02/06/20 | 0.3 mg | | | | injection 0.2-0.5 mg 0.2-0.5 mg, | | 17 2:43 | | | | | Intravenous, EVERY 5 MIN PRN, | | PM PDT | | | | | Pain, Starting 02/05/17 at | | | | | | | 1259, Maximum total dose 4 mg. | | | | | | | PACU IV Narcotic Priority: Only | | | | | | | use fentanyl for immediate | | | | | | | post-op pain (one dose) or | | | | | | | breakthrough pain when any other | | | | | | | IV narcotics ordered have been | | | | | | | ineffective (if ordered). If | | | | | | | both morphine and hydromorphone | | | | | | | are ordered, use morphine first, | | | | | | | and use hydromorphone if morphine | | | | | | | ineffective., Recovery/Phase I | | | | | | + +-------+ +--------+---+---+ +---+---+ | | | +---+---+ + +-------+ +--------+---+---+ | lactulose liquid 30 mL 30 mL, | Given | 02/10/20 | 30 mLs | | | | Oral, 2 TIMES DAILY, First dose | | 17 8:16 | | | | | on Fri02/05/17 at 2100, If | | AM PDT | | | | | docusate, senna, and polyethylene | | | | | | | glycol ineffective x 24 hours or | | | | | | | not ordered, Post-op/Phase II | | | | | | + +-------+ +--------+---+---+ +-------+ +--------+---+---+ | Given | 02/09/20 | 30 mLs | | | | | 17 8:37 | | | | | | PM PDT | | | | +-------+ +--------+---+---+ | Given | 02/09/20 | 30 mLs | | | | | 17 9:45 | | | | | | AM PDT | | | | +-------+ +--------+---+---+ +---+---+ | | | +---+---+ + + + +---+---+---+ | lidocaine (XYLOCAINE) 2% jelly | Given by | 02/08/20 | | | | | (uro-jet) Urethral, ONCE, Fri | Other | 17 1:14 | | | | | 02/07/17 at 1300, For 1 dose, | | PM PDT | | | | | Lidocaine gel for NG placement, | | | | | | + + + +---+---+---+ +---+---+ | | | +---+---+ + +-------+ +---------+---+---+ | magnesium citrate liquid 300 mL | Given | 02/08/20 | 300 mLs | | | | 300 mL, Oral, ONCE, 02/07/17 | | 17 8:08 | | | | | at 0800, For 1 dose | | AM PDT | | | | + +-------+ +---------+---+---+ +---+---+ | | | +---+---+ + +-------+ +--------+---+---+ | magnesium hydroxide (MILK OF | Given | 02/08/20 | 30 mLs | | | | MAGNESIA) 400 mg/5 mL suspension | | 17 11:53 | | | | | 30 mL 30 mL, Oral, NIGHTLY PRN, | | AM PDT | | | | | Constipation, Starting 02/07/17 | | | | | | | at 0000, If docusate, senna, and | | | | | | | polyethylene glycol ineffective | | | | | | | x 24 hours or not ordered, | | | | | | | Post-op/Phase II | | | | | | + +-------+ +--------+---+---+ +---+---+ | | | +---+---+ + +---------+ +--------+--------+---+ | methocarbamol (ROBAXIN) 750 mg | New Bag | 02/07/20 | 750 mg | 143.3 | | | in sodium chloride 0.9% 100 mL | | 17 1:20 | | mL/hr | | | IVPB 750 mg, Intravenous, | | AM PDT | | | | | Administer over 45 Minutes, EVERY | | | | | | | 6 HOURS INTERVAL, First dose on | | | | | | | 02/05/17 at 1330, For 3 doses, | | | | | | | Post-op/Phase II | | | | | | + +---------+ +--------+--------+---+ +---------+ +--------+--------+---+ | New Bag | 02/06/20 | 750 mg | 143.3 | | | | 17 7:35 | | mL/hr | | | | PM PDT | | | | +---------+ +--------+--------+---+ | New Bag | 02/06/20 | 750 mg | 143.3 | | | | 17 2:03 | | mL/hr | | | | PM PDT | | | | +---------+ +--------+--------+---+ +---+---+ | | | +---+---+ + +-------+ +-------+---+ + | methylnaltrexone (RELISTOR) | Given | 02/08/20 | 12 mg | | Abdomen- | | injection 12 mg 12 mg, | | 17 12:00 | | | LUQ | | Subcutaneous, ONCE, Fri02/07/17 at | | PM PDT | | | | | 1200, For 1 dose, Give if no BM | | | | | | | within 6 hours of magnesium | | | | | | | citrate dose, | | | | | | + +-------+ +-------+---+ + +---+---+ | | | +---+---+ + +-------+ +-------+---+---+ | metoclopramide (REGLAN) 5 mg/mL | Given | 02/08/20 | 10 mg | | | | injection 10 mg 10 mg, | | 17 12:31 | | | | | Intravenous, EVERY 4 HOURS PRN, | | PM PDT | | | | | Nausea, Vomiting, Starting Wed | | | | | | | 02/05/17 at 1529, Use if | | | | | | | ondansetron and prochlorperazine | | | | | | | ineffective after 30 minutes or | | | | | | | not ordered Use PO option unless | | | | | | | NPO status or unable to tolerate | | | | | | | Protect from light., | | | | | | | Post-op/Phase II | | | | | | + +-------+ +-------+---+---+ +---+---+ | | | +---+---+ + +-------+ +------+---+---+ | morphine injection 2-8 mg 2-8 | Given | 02/06/20 | 2 mg | | | | mg, Intravenous, EVERY 2 HOURS | | 17 9:04 | | | | | PRN, Pain, Starting Fri02/05/17 at | | PM PDT | | | | | 1529, If oral route not an | | | | | | | option. Slow IV push, not faster | | | | | | | than 2mg/minute. First dose must | | | | | | | be lowest dose, titrate to | | | | | | | effective dose by repeat of | | | | | | | lowest dose every 30 minutes prn | | | | | [...] | +---+---+ + +-------+ +------+---+---+ | ondansetron (ZOFRAN ODT) | Given | 02/07/20 | 4 mg | | | | disintegrating tablet 4 mg 4 mg, | | 17 9:01 | | | | | Oral, EVERY 6 HOURS PRN, Nausea, | | AM PDT | | | | | Vomiting, Starting Fri02/05/17 at | | | | | | | 1529, First line agent, | | | | | | | Post-op/Phase II | | | | | | + +-------+ +------+---+---+ +---+---+ | | | +---+---+ + +-------+ +------+---+---+ | oxyCODONE (ROXICODONE) tablet | Given | 02/10/20 | 5 mg | | | | 5-20 mg 5-20 mg, Oral, EVERY 4 | | 17 8:23 | | | | | HOURS PRN, Pain, Starting Wed | | AM PDT | | | | | 02/05/17 at 1529, Post-op/Phase II | | | | | | + +-------+ +------+---+---+ +-------+ +------+---+---+ | Given | 02/10/20 | 5 mg | | | | | 17 1:20 | | | | | | AM PDT | | | | +-------+ +------+---+---+ | Given | 02/09/20 | 5 mg | | | | | 17 9:52 | | | | | | AM PDT | | | | +-------+ +------+---+---+ +---+---+ | | | +---+---+ + +-------+ +------+---+---+ | polyethylene glycol (MIRALAX) | Given | 02/08/20 | 17 g | | | | powder 17 g 17 g, Oral, DAILY | | 17 11:57 | | | | | PRN, Constipation, Starting Fri | | AM PDT | | | | | 02/05/17 at 1529, If docusate and | | | | | | | senna ineffective or not ordered, | | | | | | | Post-op/Phase II | | | | | | + +-------+ +------+---+---+ +---+---+ | | | +---+---+ + +-------+ +--------+---+---+ | senna (SENOKOT) tablet 8.6 mg | Given | 02/10/20 | 8.6 mg | | | | 8.6 mg, Oral, 2 TIMES DAILY, | | 17 8:16 | | | | | First dose on Fri02/05/17 at 2100, | | AM PDT | | | | | If docusate ineffective or not | | | | | | | ordered, Post-op/Phase II | | | | | | + +-------+ +--------+---+---+ +-------+ +--------+---+---+ | Given | 02/09/20 | 8.6 mg | | | | | 17 8:37 | | | | | | PM PDT | | | | +-------+ +--------+---+---+ | Given | 02/09/20 | 8.6 mg | | | | | 17 9:45 | | | | | | AM [...] + +---------+-------+---+ +---+---+ | | | +---+---+ documented in this encounter
--- OUTSIDE RECORDS SUMMARY | ~2019-09-01 | XMS | Encounter Summary ---
Demographics + + + | Address | [address] | | | [place] [address] | + + + | Home Phone | | + + + | Preferred Language | Unknown | + + + | Marital Status | | + + + | Yarsani Affiliation | Unknown | + + + | Race | Unknown | + + + | Ethnic Group | Unknown | + + + Author + + + | Author | [facility] | | | and [place] | + + + | Organization | [facility] | | | and [place] | + + + | Address | Unknown | + + + | Phone | Unavailable | + + + Support + + + + + | Name | Relationship | Address | Phone | + + + + + | Alma Gramajo | ECON | [address] | | | | | [place] [address] | | + + + + + Care Team Providers + +------+ + | Care Coupon Manifest Clerk Name | Role | Phone | + +------+ + | Priyanka Sal PA-C | PCP | | + +------+ + Encounter Details +--------+ + + + + | Date | Type | Department | Care Team | Description | +--------+ + + + + | 05/28/ | [facility] | [facility] | Berhane Chavez, | S/P lumbar fusion | | 2017 | Encounter | MED CTR XRAY [address] | [employer] [address] | | | | | [place] | [address] [place] | | | | | [place] [address] | [place] [address] | | | | | [phone] | [phone] | | | | | | | [...]
--- OUTSIDE RECORDS SUMMARY | ~2019-09-01 | XMS | Encounter Summary ---
Demographics + + + | Address | [address] | | | [place] [address] | + + + | Home Phone | | + + + | Preferred Language | Unknown | + + + | Marital Status | | + + + | Anabaptist Affiliation | Unknown | + + + | Race | Unknown | + + + | Ethnic Group | Unknown | + + + Author + + + | Author | [facility] | | | and [place] | + + + | Organization | [facility] | | | and [place] | + + + | Address | Unknown | + + + | Phone | Unavailable | + + + Support + + + + + | Name | Relationship | Address | Phone | + + + + + | Alma Gramajo | ECON | [address] | | | | | [place] [address] | | + + + + + Care Team Providers + +------+ + | Care Gas Roller Operator Name | Role | Phone | [...] [place] | | | | | | [address] | | | | | | [phone] | | | +--------+ + + + [...]
--- OUTSIDE RECORDS SUMMARY | ~2019-09-01 | XMS | Encounter Summary ---
Demographics + + + | Address | [address] | | | [place] [address] | + + + | Home Phone | | + + + | Preferred Language | Unknown | + + + | Marital Status | | + + + | Pentecostal Affiliation | Unknown | + + + | Race | Unknown | + + + | Ethnic Group | Unknown | + + + Author + + + | Author | [facility] | | | and [place] | + + + | Organization | [facility] | | | and [...] | | | | | [place] [address] | | + + + + + Care Team Providers + +------+ + | Care Creamery Worker Name | Role | Phone | [...] + | 05/13/ | Telephone | [facility] | Eiml Garcia, | Other (Schedule | | 2012 | | NEUROSURGERY [address] | DO [address] | urgent appointment) | | | | [address] | [address] [place], [place] | | | | | [place], [place] | [address] | | | | | [address] | | | | | | [phone] | | | +--------+ + + + [...]
--- OUTSIDE RECORDS SUMMARY | ~2019-09-01 | XMS | Encounter Summary ---
Demographics + + + | Address | [address] | | | [place] [address] | + + + | Home Phone | | + + + | Preferred Language | Unknown | + + + | Marital Status | | + + + | Hindu Affiliation | Unknown | + + + | Race | Unknown | + + + | Ethnic Group | Unknown | + + + Author + + + | Author | [facility] | | | and [place] | + + + | Organization | [facility] | | | and [place] | + + + | Address | Unknown | + + + | Phone | Unavailable | + + + Support + + + + + | Name | Relationship | Address | Phone | + + + + + | Alma Ochoa | ECON | [address] | | | | | [place] [address] | | + + + + + Care Team Providers + +------+ + | Care Lead Man Over All Dies In Pattern Shop Name | Role | Phone | + +------+ + | Hudson Nair | PCP | | | MD | | | + +------+ + Encounter Details +--------+ + + + + | Date | Type | Department | Care Team | Description | +--------+ + + + + | 07/19/ | Hospital | [facility] | Emil Garcia, | Status post lumbar | | 2012 | Encounter | MED CTR XRAY [address] | DO [address] | spinal fusion | | | | [place] | [address] [place] | | | | | [place] [id number] | [address] | | | | | [phone] | | | +--------+ + + + [...] LUMBAR SPINE 2 OR | Routin | 11/25/2013 | Status post lumbar | Results for this | | 3 VW | e | 2:18 PM | spinal fusion | procedure are in the | | | | PDT | | results section. | + +--------+ + + + | XR THORACIC SPINE 2 | Routin | 07/19/2013 | Status post lumbar | Results for this | | VW | e | 11:01 AM | spinal fusion | procedure are in the | | | | PST | | results section. | + +--------+ + + + documented in this encounter Results XR Lumbar Spine 2 or 3 Vw (11/25/2013 2:18 PM PDT) + + | Specimen | + + | | + + + + + | Narrative | Performed At | + + + | THREE VIEWS LUMBAR SPINE 11/25/2013 2:18 PM CLINICAL HISTORY: S/P | [facility] | | LUMBAR FUSION COMPARISON: THORACIC RADIOGRAPHS 07/19/2013, | LAB | | ABDOMINAL RADIOGRAPH 05/20/2013, LUMBAR MRI 05/18/2013 Findings: | | | Five non rib-bearing, lumbar type vertebrae are visible. Interbody and | | | posterior aditya and pedicle screw fusion hardware remains in similar, | | | satisfactory position and alignment at T11-12. Small Schmorl's | | | nodes are again visible within upper lumbar vertebral endplates. | | | Vertebral height is otherwise maintained, without evident fracture | | | or obvious spondylolysis. Mild retrolisthesis persists at L2-3 and | | | is similar to previous. The sacroiliac joints, imaged sacrum, bony | | | pelvis and lower ribs are unremarkable. IMPRESSION - 1. | | | STABLE, SATISFACTORY APPEARANCE OF OPERATIVE INTERBODY AND POSTERIOR | | | ADITYA AND PEDICLE SCREW FUSION HARDWARE AT T11-12, WITH PERSISTENT MILD | | | RETROLISTHESIS AT L2-3. Dictated and Signed by: Juan Ramiers MD | | | Electronically signed: 11/26/2013 6:03 AM | | + + + + + | Procedure Note | + + | Raoul, Rad Results In - 11/26/2013 6:07 AM PDT THREE VIEWS LUMBAR SPINE 11/25/2013 2:18 | | PMCLINICAL HISTORY: S/P LUMBAR FUSIONCOMPARISON: THORACIC RADIOGRAPHS 07/19/2013, | | ABDOMINAL RADIOGRAPH 05/20/2013,LUMBAR MRI 05/18/2013Findings: Five non rib-bearing, | | lumbar type vertebrae are visible. Interbody andposterior aditya and pedicle screw fusion | | hardware remains in similar, satisfactoryposition and alignment at T11-12. Small | | Schmorl's nodes are again visiblewithin upper lumbar vertebral endplates. Vertebral | | height is otherwisemaintained, without evident fracture or obvious spondylolysis. | | Mildretrolisthesis persists at L2-3 and is similar to previous. The sacroiliacjoints, | | imaged sacrum, bony pelvis and lower ribs are unremarkable.IMPRESSION -1. STABLE, | | SATISFACTORY APPEARANCE OF OPERATIVE INTERBODY AND POSTERIOR RODAND PEDICLE SCREW FUSION | | HARDWARE AT T11-12, WITH PERSISTENT MILD RETROLISTHESISAT L2-3.Dictated and Signed by: | | Juan Ramires MD Electronically signed: 11/26/2013 6:03 AM | |retrolisthesis persists at L2-3 and is similar to previous. The sacroiliac | |joints, imaged sacrum, bony pelvis and lower ribs are unremarkable. | | | |IMPRESSION - | | | |1. STABLE, SATISFACTORY APPEARANCE OF OPERATIVE INTERBODY AND POSTERIOR ADITYA | |AND PEDICLE SCREW FUSION HARDWARE AT T11-12, WITH PERSISTENT MILD RETROLISTHESIS | |AT L2-3. | | | |Dictated and Signed by: Juan Ramires MD | | Electronically signed: 11/26/2013 6:03 AM | + + + +---------+ + + | Performing | Address | City[facility]State[facility] | Phone Number | | Organization | | | | + +---------+ + + | [facility] | | | [phone] | + +---------+ + + | [facility] | | | [phone] | + +---------+ + + XR Thoracic Spine 2 Vw (07/19/2013 11:01 AM PST) + + | Specimen | + + | | + + + + + | Narrative | Performed At | + + + | [facility] | [facility] | | Department [address] , [place] | [facility] | | [ rep ct [address]] [ rep ct [facility] | | st zip] Signed | - IMAGING | | | | | Patient Name: ROSARIO OCHOA | | | Physician: DENILSON : 1975 Age: 38 Sex: M Unit | | | #: [id number] Exam Date: 07/19/13 Location: | | | [facility] Report #: [id number] Page: | | | %(RAD)RES..mtdd.print.filter("pg") of %(RAD) | | | RES..mtdd.print.filter("tpg") | | | | | | Accession Number: [id number] | | | TWO VIEWS OF THORACIC [...] Transcribed Date/Time: 07/19/2013 14:38 | | | Head Strength And Conditioning Coach: ROSALIA <<Signature on File>> | | | Juan | | | Theo Ramires MD07/19/13 8237 <Electronically signed by Juan Ramires | | | > Juan Ramires MD 07/19/13 1101 Head Strength And Conditioning Coach: | | | [facility] Piovnqxyqqabp18/18/13 8804 Emil Garcia, DO | | | | | + + + + + + + + | Performing | Address | City/State/Zipcode | Phone Number | | Organization | | | | + + + + + | [facility] | [address] | [place] | [phone] | | [facility] | | [address] | | | - IMAGING | | | | + + + + + documented in this encounter Visit Diagnoses + + | Diagnosis | + + | Status post lumbar spinal fusion Arthrodesis status | + + documented in this encounter
--- OUTSIDE RECORDS SUMMARY | ~2019-09-01 | XMS | Encounter Summary ---
Demographics + + + | Address | [address] | | | [place] [address] | + + + | Home Phone | | + + + | Preferred Language | Unknown | + + + | Marital Status | | + + + | Presybeterian Affiliation | Unknown | + + + | Race | Unknown | + + + | Ethnic Group | Unknown | + + + Author + + + | Author | [facility] | | | and [place] | + + + | Organization | [facility] | | | [...] | | | | | [place] [address] | | + + + + + Care Team Providers + +------+ + | Care Dictaphone Typist Name | Role | Phone | + [...] | | | | | | | [place] | | | | | | | ARTHRODESIS | | | | | | | POSTERIOR/PO | | | | | | | STEROLATERAL | | | | | | | LUMBAR [place] | | | | | | | LUMBAR SPINE | | | | | | | | | | | | | | FUSION,ANTER | | | | | | | APPRCH [place] | | | | | | | [...] Description | +--------+---------+ + + + | 02/05/ | Surgery | [facility] | Emil Garcia, | L3-4 Extreme Lateral | | 2017 | | MED CTR OR INTRA OP | DO [address] | Interbody Fusion | | | | [address] | [address] [place], [place] | | | | | [place], [place] | [id number] | | | | | [address] | | | | | | [phone] | | | +--------+---------+ + + + [...] month post op appointment before your appointment. [id number] [employer]. [address] [place] [address]. All righ ts reserved. This information is [...] control -DVT prophylaxis -DC plan: home with [facility] tomorrow likely Nyasia Mcrae RRT - 02/07/2017 9:36 PM PDTNosmany informed of pt's need for O2. Arcenio [...] might be different from the origin al. [facility] PROGRESS NOTE PATIENT NAME: Zaheer Gramajo [...] mg 1.25 mg Intravenous Q6H PRN Adal hong PA-C labetalol (TRANDATE) 5 mg/mL injection 10 [...] has no apparent deficits with short or care home memory. MOTOR EXAM: Motor strength is stable [...] ELECTRONICALLY SIGNED BY: LAMIN Lindsay, 02/07/2017 7:25 EENSuBerhane perez PA - 02/06/2017 7:24 AM PDT [facility] NE[facility] PROGRESS NOTE PATIENT NAME: Zaheer Gramajo [...] mg 1.25 mg Intravenous Q6H PRN Adal hong PA-C labetalol (TRANDATE) 5 mg/mL injection 10 [...] has no apparent deficits with short or manager long term care memory. MOTOR EXAM: Motor strength is stable. [...] | | | n | | | [place], | | | Jackso | | | n | | | president college or university | | | EP: | | | [...] | | | - | | | [place] | | | ; Matt | | [...] L4. Dictated and Signed by: Cheri Ceja | | Electronically signed: 02/05/2017 3:12 PM | | + + + + + | Procedure Note | + + | Raoul, Rad Results In - 02/05/2017 3:16 PM PDT XR LUMBAR SPINE 2 OR 3 VW 02/05/2017 3:09 | | PMHISTORY: post op.COMPARISON: Multiple priors.FINDINGS:There has been interval | | placement of hardware for posterior fusion from P5vmcrzrn L4 with spacer hardware at | | [...] | + +---------+ + + [place] Mitul Stats No Charge (02/05/2017 12:58 PM PDT) [...] [address] | [place] | | | [facility] | | [address] | | | - BLOOD BANK | [...] | | | | | at 1529, Yohan gaston., | | | | | | | [...] | +---+---+ + +-------+ +--------+---+ + | bupivacaine 0.25%-EPINEPHrine | Given | 02/06/20 | 10 mLs | | Surgical | | 1:200,000 (PF) injection PRN, | | 17 11:00 | | | Site | | Starting Fri02/05/17 at 1100, | | AM PDT | | | | | Intra-op | | | | | | + +-------+ +--------+---+ + +---+---+ | | | +---+---+ + +-------+ +------+---+---+ | diazePAM (VALIUM) injection | Given | 02/08/20 | 5 mg | | | | 2.5-5 mg 2.5-5 mg, Intravenous, | | 17 12:44 | | | | | EVERY 6 HOURS PRN, Muscle spasms, | | PM PDT | | | | | Starting Fri02/05/17 at 1529, Use | | | | [...] | | | | | Constipation, Starting Fri02/07/17 | | | | | | [...] | | | | PRN, Constipation, Starting Wed | | AM PDT | | | | | 02/05/17 at 1529, If docusate and | | | | | | | senna ineffective or not ordered, | | | | | | | Post-op/Phase II | | | | | | + +-------+ +------+---+---+ +---+---+ | | | +---+---+ + +-------+ +--------+---+ + | ropivacaine (NAROPIN) 2 mg/mL | Given | 02/06/20 | 60 mLs | | Surgical | | (0.2%) injection PRN, Starting | | 17 12:36 | | | Site | | 02/05/17 at 1236, Intra-op | | PM PDT | | | | + +-------+ +--------+---+ + +---+---+ | | | +---+---+ + [...]
--- OUTSIDE RECORDS SUMMARY | ~2019-09-01 | XMS | Encounter Summary ---
Demographics + + + | Address | [address] | | | [place] [address] | + + + | Home Phone | | + + + | Preferred Language | Unknown | + + + | Marital Status | | + + + | Congregation Affiliation | Unknown | + + + | Race | Unknown | + + + | Ethnic Group | Unknown | + + + Author + + + | Author | [facility] | | | and [place] | + + + | Organization | [facility] | | | and [place] | + + + | Address | Unknown | + + + | Phone | Unavailable | + + + Support + + + + + | Name | Relationship | Address | Phone | + + + + + | Alma Gramajo | ECON | [address] | | | | | [place] [address] | | + + + + + Care Team Providers + +------+ + | Care Chinese Medicine Practitioner Name | Role | Phone | + +------+ + | Priyanka Sal PA-C | PCP | | + +------+ + Encounter Details +--------+ + + + + | Date | Type | Department | Care Team | Description | +--------+ + + + + | 09/18/ | Hospital | [facility] | Emil Garcia, | Back pain, | | 2016 | Encounter | MED CTR XRAY [address] | DO [address] | unspecified back | | | | [place] | [address] [place] | pain laterality, | | | | [place] [address] | [address] | unspecified location | | | | [phone] | | | +--------+ + + + [...] + | XR LUMBAR SPINE 4 + | Routin | 09/18/2015 | Back pain, | Results for this | | VW | e | 2:24 PM | unspecified back | procedure are in the | | | | PST | pain laterality, | results section. | | | | | unspecified location | | + +--------+ + + + documented in this encounter Results XR Lumbar Spine 4 [...] spine 08/24/2015 and lumbar spine x-ray | [facility] | | 11/25/2013 FINDINGS: Posterior [...] + + | Performing | Address | City/State[facility] | Phone Number | | Organization | | | | + + + + + | [address] | [address] | [place] | [phone] | | [facility] | | [address] | | | - IMAGING | | | | + + + + + documented in this encounter Visit Diagnoses + + | Diagnosis | + + | Back pain, unspecified back pain laterality, unspecified location | + + documented in this encounter"
--- OUTSIDE RECORDS SUMMARY | ~2019-09-01 | XMS | Encounter Summary ---
Demographics + + + | Address | [address] | | | [place] [address] | + + + | Home Phone | | + + + | Preferred Language | Unknown | + + + | Marital Status | | + + + | Presybeterian Affiliation | Unknown | + + + | Race | Unknown | + + + | Ethnic Group | Unknown | + + + Author + + + | Author | [facility] | | | and [place] | + + + | Organization | [facility] | | | and [place] | + + + | Address | Unknown | + + + | Phone | Unavailable | + + + Support + + + + + | Name | Relationship | Address | Phone | + + + + + | Alma Gramajo | ECON | [address] | | | | | [place] [address] | | + + + + + Care Team Providers + +------+ + | Care Nut Feeder Name | Role | Phone | + [...] | | | | | | | [place] | | | | | | | [...] Description | +--------+---------+ + + + | 02/12/ | Surgery | [facility] | Satinder Elizondo | Left Ureteroscopy, | | 2017 | | MED CTR OR INTRA OP | MD [address] | Laser Lithotripsy | | | | [address] | [address] [place] [address] | and Stent | | | | [place] | [address] | | | | | [address] | | | | | | [phone] | | | +--------+---------+ + + + [...] redness around your incision Date Last Reviewed: 10/02/201619992985-0072 [facility]. [address] [place] [address]. All righ ts reserved. This information is [...] what medicines and drugsyou take. This includes wtdv-fyr-kmn nter medicines, herbs, supplements, alcohol or other [...] 24 hours after surgery, have a trusted [facility] member or spouse act on your behalf. Avoid alcohol. Havea responsible adultstay with you.He or shecan watch for problems and help ke ep you safe. Date Last Reviewed: 08/01/201619996176-1376 [facility]. [address] [place] [address], [place] [address]. All righ ts reserved. This information is [...] [facility] | | | | | | at:[phone]. | | | | + + + [...] + + | Performed at: 01 - [facility] [address], | REFERENCE LAB | | [place], [place] [id number] Rn Internship: Adam Jacob MD, Phone: | STEPHANIERP - JULIAN | | [phone] | | + + + + + + + + | Performing | Address | City/State/Zipcode | Phone Number | | Organization | | | | + + + + + | REFERENCE LAB | [address] | [place] [address] | [phone] | | [facility] | [address] | | | + + + + + documented in this encounter Visit Diagnoses Not on filedocumented in this encounter Administered Medications + +--------+---------+------+------+------+ | Medication Order | MAR | Action | Dose | Rate | Site | | | Action | Date | | | | + +--------+---------+------+------+------+ + +---+ | albuterol 2.5 mg/3 mL nebulizer | | | solution 2.5 mg 2.5 mg, | | | Nebulization, ONCE PRN, Wheezing, | | | Starting [facility] 02/12/18 at 0632, | | | For 1 dose, RT will administer., | | | Pre-op | | + +---+ | | | + +---+ | albuterol 2.5 mg/3 mL nebulizer | | | solution 2.5 mg 2.5 mg, | | | Nebulization, ONCE PRN, Wheezing, | | | Starting [facility] 02/12/18 at 0840, | | | [...] DBP > 100, | | | Starting Sayra 02/12/18 at 0840, | | | Hold if HR > 100. Maximum total | | | dose 40 mg. Use labetalol first | | | if available., Recovery/Phase I | | + +---+ | | | + +---+ | HYDROmorphone (DILAUDID) | | | injection 0.2-0.5 mg 0.2-0.5 mg, | | | Intravenous, EVERY 5 MIN PRN, | | | Pain, Starting Sayra 02/12/18 at | | | 0840, Maximum [...] HOURS PRN, | | | Pain, Starting Sayra 02/12/18 at | | | 0923, If [...] | mL/hr | | | CONTINUOUS, Starting [facility] 02/12/18 | | AM PDT | [...] | | | | 02/12/18 at 0923, First dose must | | [...] | | | | | | Starting [facility] 02/12/18 at 0923, | | | [...]
--- OUTSIDE RECORDS SUMMARY | ~2019-09-01 | XMS | Encounter Summary ---
Demographics + + + | Address | [address] | | | [place] [address] | + + + | Home Phone [...] Organization | [facility] | | | and [place] | + + + | Address | Unknown | + + + | Phone | Unavailable | + + + Support + + + + + | Name | Relationship | Address | Phone | + + + + + | Alma Gramajo | ECON | [address] | | | | | [place] [address] | | + + + + + Care Team Providers + +------+ + | Care Experimental Display Builder Name | Role | Phone | + [...] + | 09/21/ | Telephone | [facility] | Emil Garcia, | Other (Letter for | | 2013 | | NEUROSURGERY [address] | DO [address] | work ) | | | | [address] | [address] [place], [place] | | | | | [place], [place] | [id number] | | | | | [address] | | | | | | [phone] | | | +--------+ + + + [...]
--- OUTSIDE RECORDS SUMMARY | ~2019-09-01 | XMS | Encounter Summary ---
Demographics + + + | Address | [address] | | | [place] [address] | + + + | Home Phone | | + + + | Preferred Language | Unknown | + + + | Marital Status | | + + + | Taoism Affiliation | Unknown | + + + | Race | Unknown | + + + | Ethnic Group | Unknown | + + + Author + + + | Author | [facility] | | | and [place] | + + + | Organization | [facility] | | | and [...] | | | | | [place] [address] | | + + + + + Care Team Providers + +------+ + | Care Machine Cage Maker Name | Role | Phone | + +------+ + | Hudson Nair | PCP | | | MD | | | + +------+ + Reason for Visit + + + | Reason | Comments | + + + | Follow-up | 2 month PO s/p lumbar fusion | + + + Evaluate & Treat (Urgent) +--------+--------+ + + [...] [address] | | | | | AL OFFICE | [address] | [place], [place] | | | | | CONSULTATION | [place], | [address] Phone: | | | | | NEW/[place]AB | [place] [address] | [phone] | | | | | PATIENT 60 | Phone: | Fax: | | | | | MIN | [phone] | [phone] | | | | | | Fax: | | | | | | | [phone] | | +--------+--------+ + + + + Encounter Details +--------+---------+ + + + | Date | Type | Department | Care Team | Description | +--------+---------+ + + + | 07/26/ | Office | [facility] | Emil Garcia, | S/P lumbar fusion | | 2013 | Visit | NEUROSURGERY [address] | DO [address] | (Primary Dx) | | | | [address] | [address] [place], [place] | | | | | [place], [place] | [address] | | | | | [address] | | | | | | [phone] | | | +--------+---------+ + + + [...] + + + | Blood Pressure | 95/69 | 07/26/2013 11:09 AM | | | | | PST | | + + + + + | Pulse | 82 | 07/26/2013 11:09 AM | | | | | PST | | + + + + + | Temperature | - | - | | + + + + + | Respiratory Rate | 18 | 07/26/2013 11:09 AM | | | | | PST | | + + + + + | Oxygen Saturation | - | - | | + + + + + | Inhaled Oxygen | - | - | | | Concentration | | | | + + + + + | Weight | 136.1 kg (300 lb) | 07/26/2013 11:09 AM | | | | | PST | | + + + + + | Height | 188 cm (6' 2") | 07/26/2013 11:09 AM | | | | | PST | | + + + + + | Body Mass Index | 38.52 | 07/26/2013 11:09 AM | | | | | PST | | + + + + + documented in this encounter Patient Instructions Patient Instructions Emil Garcia DO - 07/26/2013 11:37 AM PSTPlease continue therapy. Please follow-up with new x-rays in 4 months. documented in this encounter Progress Notes Emil Garcia DO - 07/26/2013 11:41 AM PSTFormatting of this note might be different fro m the original. Emil Garcia DO [address] [facility], [address] [place] [address] FAX: NEUROSURGERY SURGICAL FOLLOW-UP CHIEF COMPLAINT: Chief Complaint Patient presents with Follow-up 2 month PO s/p lumbar fusion HISTORY OF PRESENT ILLNESS: The patient is a 38 y.o. male that had a TLIF T11-12 by me fo r myelopathy around 8 weeks ago. He returns and overall is doing fairly well. The patient says his postoperative leg weakness is much improved. He is walking progressively more each day. The patient has been walking as much as possible. He is still taking pain medications at this point. The patient has had No issues with his surgical site. He did have a postope rative DVT on the right leg, which is is currently taking coumadin for. CURRENT MEDICATIONS: Current Outpatient Prescriptions Medication Sig Dispense Refill cyclobenzaprine (FLEXERIL) 10 mg tablet gabapentin (NEURONTIN) 300 mg capsule Take 300 mg by mouth Once a week. oxyCODONE-acetaminophen (PERCOCET) 7.5-325 mg per tablet Take 2 tablets by mouth every 8 hours as needed for Pain for 10 days. 60 tablet 0 warfarin (COUMADIN) 10 mg tablet Take 10 mg by mouth Daily. Tu, Th, Sun warfarin (COUMADIN) 7.5 mg tablet Take 7.5 mg by mouth Daily. Mon, Wed, Fri, Sat ALLERGIES: No Known Allergies SOCIAL HISTORY: The patient reports that he has never smoked. He does not have any smokeless tobacco histo ry on file. INTERIM PHYSICAL EXAMINATION: Blood pressure 95/69, pulse 82, resp. rate 18, height 1.88 m (6' 2"), weight 136.079 kg (30 0 lb). Body mass index is 38.52 kg/(m^2). GENERAL: Zaheer Gramajo is in no acute distress with unlabored respirations. SPINE: The patient s incisions are healing well without drainage, significant erythema, o r discharge EXTREMITIES: No lower extremity edema. NEUROLOGICAL EXAMINATION: MENTAL STATUS: The patient is awake, alert, and oriented. He follows simple and complex commands MOTOR EXAM: Motor strength is 4/5. This is diminished from the preoperative exam. But is m uch improved SENSORY EXAM: The sensory examination improved from the preoperative exam. RADIOGRAPHIC REVIEW: The patient s postoperative x-rays show stable instrumentation and alignment and were rev iewed with the patient today. There have been no interval changes since the immediate posto perative films. Complete fusion has not yet occurred, but this is normal and would not be e xpected at this time. ASSESSMENT: S/P TLIF T11-12 for myelopathy: Past Medical History Diagnosis Date H/O blood clots PLAN: Overall, the patient is doing fairly well. His postoperative paresis is significantly impr naida. I increased the patient s activities slowly now allowing 15 pound lifting and also will b egin the process of brace weaning. I would like the patient to advance slowly with this pro cess and discussed this at length during today's visit. I would also like the patient to co ntinue with postoperative rehabilitation and to advance with therapy as tolerated. I am hoping to see improvement over the coming weeks to months and plan to continue to foll ow this patient. I spent 30 minutes in visit with Zaheer Gramajo today with the majority of time spent counselling the patient on his recovery and coordinating his future care. The patient will follow-up with me in around 4 months for re-evaluation. ELECTRONICALLY SIGNED BY: Emil Garcia DO, 07/26/2013 11:46 documented in this encounter Plan of Treatment + +---------+--------+ + + | Name | Type | Priori | Associated Diagnoses | Order Schedule | | | | ty | | | + +---------+--------+ + + | XR Thoracolumbar | Imaging | Routin | S/P lumbar fusion | Expected: | | Spine AP Lateral | | e | | 07/26/2013, Expires: | | | | | | 07/26/2014 | + +---------+--------+ + + documented as of this encounter Visit Diagnoses + + | Diagnosis | + + | S/P lumbar fusion - Primary Arthrodesis status | + + documented in this encounter
--- OUTSIDE RECORDS SUMMARY | ~2019-09-01 | XMS | Encounter Summary ---
Demographics + + + | Address | [address] | | | [place] [address] | + + + | Home Phone | | + + + | Preferred Language | Unknown | + + + | Marital Status | | + + + | Mormonism Affiliation | Unknown | + + + | Race | Unknown | + + + | Ethnic Group | Unknown | + + + Author + + + | Author | [facility] | | | and [place] | + + + | Organization | [facility] [...] | | | | | [place] [address] | | + + + + + Care Team Providers + +------+ + | Care Telehealth Case Manager Name | Role | Phone | [...] | | Spinal | [place], | [address] Phone: | | | | | stenosis of | [place] [address] | [phone] | | | | | lumbar | Phone: | Fax: | | | | | region, | [phone] | [phone] | | | | | unspecified | Fax: | | | | | | whether | [phone] | | | | | | neurogenic [...] + + | 04/21/ | Office | [facility] | Cici, | H/O spinal cord | | 2018 | Visit | PHYSIATRY [address] | [address] | compression (Primary | | | | [place], | [address] [place], | Dx); Spinal | | | | [place] [address] | [place] [address] | stenosis of lumbar | | | | [phone] | [phone] | region with | | | | [...] of blood sugars if you are diabetic. terminal carman risk can lead to osteoporosis which is [...] of the procedure you must provide a salesperson driver to take you home. For all procedur es it is recommended that someone else drive you home. documented in this encounter Progress Notes Gissell Bolanos PA-C - 04/21/2018 11:20 AM PDTFormatting of this note might be differe nt from the original. Gissell Bolanos PA-C [address] [facility], [address] [place] [address] FAX: PHYSICAL MEDICINE AND REHABILITATION H&P CHIEF [...] Surgeon: Emil Garcia DO; Location: [facility] MAIN OR LUMBAR SPINE SURGERY 2013 x2 THORACIC FUSION 2014 URETEROSCOPY Left 02/12/2018 Procedure: Left Ureteroscopy, Laser Lithotripsy and Stent; Surgeon: Satinder Elizondo MD; Location: [facility] MAIN OR CURRENT MEDICATIONS: Current Outpatient [...] has no apparent deficits with short or emt intermediate memory. 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 Unfortunately he contin ues to have significant [...]
--- OUTSIDE RECORDS SUMMARY | ~2019-09-01 | XMS | Encounter Summary ---
Demographics + + + | Address | [address] | | | [place] [address] | + + + | Home Phone | | + + + | Preferred Language | Unknown | + + + | Marital Status | | + + + | Pentecostal Affiliation | Unknown | + + + | Race | Unknown | + + + | Ethnic Group | Unknown | + + + Author + + + | Author | [facility] | | | and [place] | + + + | Organization | [facility] | | | and [...] | | | | | [place] [address] | | + + + + + Care Team Providers + +------+ + | Care Flooring Grader Name | Role | Phone | + [...] | | | | | | | RI REPAIR | | | | | | [...] Description | +--------+---------+ + + + | 08/12/ | Surgery | [facility] | Cris Gutierrez | RIGHT INGUINAL | | 2018 | | MED CTR OR INTRA OP | [address] | HERNIA REPAIR WITH | | | | [address] | [place] | MESH | | | | [place] | [place] [address] | | | | | [address] | [phone] | | | | | [phone] | | | +--------+---------+ + + + [...] as of this encounter Discharge Instructions Instructions Zoey Lane RN - 08/12/2018 POSTOPERATIVE DISCHARGE INSTRUCTIONS Office Phone Number to Contact Dr Gutierrez: [phone] Gutierrez's Office to schedule a follow up visit in about 2 weeks. [facility] next door to Urgent Care. Wound [...] Friday 9:00-2:00PM. Call the General Surgery Office [phone] for the following: Persistent vomiting Diarrhea lasting [...] as possible. Limit sports and strenuous activities [id number]. Shower as usual. Gently wash around your [...] Care Everywhere.Having Hernia S urgery: Traditional Repair (Croatian)documented in this encounter Medications at Time of Discharge + + + +---------+ + + | Medication | Sig | Dispensed | Refills | Start | End Date | | | | | | Date | | + + + +---------+ + + | acetaminophen | Take 1-2 tablets by | 60 | 0 | 12/12/20 | | | (TYLENOL) 500 mg | [...] 18 12:20 | | | | | 08/12/18 at 1230, For 1 dose, | | [...] | | | + +---+ + +-------+ + +---+ + | bupivacaine 0.25%-EPINEPHrine | Given | 08/12/20 | 52.6 mLs | | Surgical | | 1:200,000 (PF) 50 mL with | | 18 2:13 | | | Site | | ketorolac (TORADOL) 30 mg/mL 30 | | PM PST | | | | | mg, ketamine 50 mg/mL 30 mg, | | | | | | | morphine (PF) 10 mg/mL 10 mg | | | | | | | [employer] Infiltration, ON | | | | | | | CALL, Starting Tu08/11/18 at | | | | | | | 1743, For 1 dose, Pre-op | | | | | | + +-------+ + +---+ + + +---+ | | | + +---+ [...] HOURS PRN, Itching, | | | Starting Fri08/12/18 at 1452, | | | Oral route [...] DBP > 100, | | | Starting 08/12/18 at 1416, | | | Hold if [...] | mL/hr | | | CONTINUOUS, Starting 08/12/18 | | PM PST | | | [...]
--- OUTSIDE RECORDS SUMMARY | ~2019-09-01 | XMS | Encounter Summary ---
Demographics + + + | Address | [address] | | | [place] [address] | + + + | Home Phone | | + + + | Preferred Language | Unknown | + + + | Marital Status | | + + + | Evangelical Affiliation | Unknown | + + + | Race | Unknown | + + + | Ethnic Group | Unknown | + + + Author + + + | Author | [facility] | | | and [place] | + + + | Organization | [facility] | | | and [place] | + + + | Address | Unknown | + + + | Phone | Unavailable | + + + Support + + + + + | Name | Relationship | Address | Phone | + + + + + | Alma Gramajo | ECON | [address] | | | | | [place] [address] | | + + + + + Care Team Providers + +------+ + | Care Pre Owned Sales Consultant Name | Role | Phone | [...] | | | | | | | [place] REPAIR | | | | | | [...] WITH | | | | [address] | [place] | MESH | | | | [place] | [place] [address] | | | | | [address] | [phone] | | | | | [phone] | | | +--------+---------+ + + + [...] Office Phone Number to Contact Dr Gutierrez: [phone] Gutierrez's Office to schedule a follow up visit in about 2 weeks. [facility] located in the [facility] next door to Urgent Care. Wound [...] Friday 9:00-2:00PM. Call the General Surgery Office [phone] for the following: Persistent vomiting Diarrhea lasting [...] as possible. Limit sports and strenuous activities [id number]. Shower as usual. Gently wash around your [...] Care Everywhere.Having Hernia S urgery: Traditional Repair (Greenlandic)documented in this encounter Medications at Time of [...]
--- OUTSIDE RECORDS SUMMARY | ~2019-09-01 | XMS | Encounter Summary ---
Demographics + + + | Address | [address] | | | [place] [address] | + + + | Home Phone [...] + | Organization | [facility] | | | and [place] | + + + | Address | Unknown | + + + | Phone | Unavailable | + + + Support + + + + + | Name | Relationship | Address | Phone | + + + + + | Alma Gramajo | ECON | [address] | | | | | [place] [address] | | + + + + + Care Team Providers + +------+ + | Care Business Liaison Officer Name | Role | Phone | + +------+ + | Hudson Nair | PCP | | | | | | + +------+ + Encounter Details +--------+ + + + + | Date | Type | Department | Care Team | Description | +--------+ + + + + | 08/06/ | Hospital | [facility] | Susana Garcia | | | 2013 | Encounter | MED CTR EMER[facility]ENCY | Conner Mansfield MD [address] | | | | | [address] | [facility] | | | | | [place] | [place] [address] | | | | | [address] | [phone] | | | | | [phone] | | | +--------+ + + + [...] | | (COUMADIN) 10 mg | Daily. xAel Cochran, | | | | 6 | [...] + + | COMPREHENSIVE | Routin | 08/06/2013 | | Results for this | | METABOLIC PANEL | e | 11:27 AM | | procedure are in the | | | | PST | | results section. | + +--------+ + + + | XR CHEST AP PORTABLE | Routin | 08/06/2013 | | Results for this | | | e | 11:16 AM | | procedure are in the | | | | PST | | results section. | + +--------+ + + + | CT CHEST W CONTRAST | Routin | 08/06/2013 | | Results for this | | | e | 11:08 AM | | procedure are in the | | | | PST | | results section. | + +--------+ + + + | LIPASE | Routin | 08/06/2013 | | Results for this | | | e | 10:37 AM | | procedure are in the | | | | PST | | results section. | + +--------+ + + + | PROTIME INR | Routin | 08/06/2013 | | Results for this | | | e | 10:22 AM | | procedure are in the | | | | PST | | results section. | + +--------+ + + + | D-DIMER | Routin | 08/06/2013 | | Results for this | | | e | 10:22 AM | | procedure are in the | | | | PST | | results section. | + +--------+ + + + | CBC WITH | Routin | 08/06/2013 | | Results for this | | DIFFERENTIAL | e | 10:22 AM | | procedure are in the | | | | PST | | results section. | + +--------+ + + + documented in this encounter Results Comprehensive Metabolic Panel (08/06/2013 11:27 AM PST) + + + + + + | Component | Value | Ref Range | Performed | Pathologist | | | | | At | Signature | + + + + + + | Glucose | 101 | 70 - 109 mg/dL | [facility] [...] + + + + | Alkaline | 57 | 40 - 110 IU/L | [facility] | | | Phosphatase | | | [facility] | | | | | | MEDICAL | | | | | | CENTER - | | | | | | LABORATORY | | + + + + + + | AST | 16 | 10 - 42 IU/L | [facility] | | | | | | [facility] | | | | | | MEDICAL | | | | | | CENTER - | | | | | | LABORATORY | | + + + + + + | ALT | 18 | 6 - 45 IU/L | [facility] | | | | | | [facility] | | | | | | MEDICAL | | | | | | CENTER - | | | | | | LABORATORY | | + + + + + + | Bilirubin | 0.9 | 0.2 - 1.0 mg/dL | [facility] | | | Total | | | [facility] | | | | | | MEDICAL | | | | | | CENTER - | | | | | | LABORATORY | | + + + + + + | Total | 6.5 | 6.0 - 7.8 gm/dL | [facility] | | | Protein | | | [facility] | | | | | | MEDICAL | | | | | | CENTER - | | | | | | LABORATORY | | + + + + + + | Albumin | 3.7 | 3.2 - 5.0 gm/dL | [facility] | | | | | | [facility] | | | | | | MEDICAL | | | | | | CENTER - | | | | | | LABORATORY | | + + + + + + | BUN | 8 | 7 - 18 mg/dL | [facility] | | | | | | [facility] | | | | | | MEDICAL | | | | | | CENTER - | | | | | | LABORATORY | | + + + + + + | Creatinine | 0.84 | 0.60 - 1.30 | [facility] | | | | | mg/dL | [facility] | | | | | | MEDICAL | | | | | | CENTER - | | | | | | LABORATORY | | + + + + + + | Estimated | >60Comment: For | >60 mL/min/A | [facility] | | | GFR | -Americans, | [...] + + + + | BUN/Creatin | 9.5 (L) | 12 - 20 | [facility] | [...] + + + + | K | 3.9 | 3.5 - 5.1 mEq/l | [facility] | | | | | | [facility] | | | | | | MEDICAL | | | | | | CENTER - | | | | | | LABORATORY | | + + + + + + | Cl | 100 | 98 - 109 mEq/l | [facility] | | | | | | [facility] | | [facility] | | | MEDICAL | | | | | | CENTER - | | | | | | LABORATORY | | + + + + + + | CO2 | 29 | 24 - 31 mEq/L | [facility] | | | | | | [facility] | | | | | | MEDICAL | | | | | | CENTER - | | | | | | LABORATORY | | + + + + + + | Anion Gap | 11.9 | 6.0 - 17.0 | [facility] | [...] + | [facility] | [address] | [place], [place] | [phone] | | [facility] | | [address] | | | - LABORATORY | | | | + + + + + | [facility] | [address] | [place], [place] | | | [facility] | | [address] | | | - LABORATORY | | | | + + + + + XR Chest AP Portable (08/06/2013 11:16 AM PST) + + | Specimen | + + | | + + + + + | Narrative | Performed At | + + + | [facility] | [place] | | Department [address] [facility] | [facility] | | [ rep ct [address]] [ rep [facility] | | st zip] Signed | - IMAGING | | | | | Patient Name: ROSARIO GRAMAJO | | | Physician: ANIBAL : 1975 Age: 38 Sex: M Unit | | | #: [id number] Exam Date: 08/06/13 Location: | | | ER Report #: [id number] Page: | | | %(RAD)RES..mtdd.print.filter("pg") of %(RAD) | | | RES..mtdd.print.filter("tpg") | | | | | | Accession Number: [id number] | | | PORTABLE CHEST, 08/06/2013 CLINICAL HISTORY: CHEST | | | PAIN. FINDINGS: There are low lung volumes. An | | | azygos fissure is seen in the right upper lobe. Atelectasis is | | | seen at the lung bases. There is blunting of the right lateral | | | costophrenic sulcus, suggestive of small pleural effusion. There is | | | atelectasis at the lung bases. Heart size and mediastinal contours | | | are within normal limits for portable technique. No acute osseous | | | or soft tissue abnormalities. IMPRESSION: | | | 1. LOW LUNG VOLUMES WITH ATELECTASIS AT THE LUNG BASES. | | | POSSIBLE SMALL RIGHT PLEURAL EFFUSION. Dictated | | | Date/Time: 08/06/2013 11:16 Transcribed Date/Time: 08/06/2013 | | | 11:39 Manager Hi: <<Signature | | | on File>> | | | Michael | | | Tristen Landers MD08/06/13 4570 <Electronically signed by Michael Ramon | | | Anshul LYNCH> Michael Landers MD 08/06/13 1116 | | | Manager Hi: Ana Xnjydbuayvttp82/06/13 1139 | | | Susana Garcia MD | | + + + + + + + + | Performing | Address | City/State/Zipcode | Phone Number | | Organization | | | | + + + + + | [facility] | [address] | [place], [place] | [phone] | | [facility] | | [address] | | | - IMAGING | | | | + + + + + CT Chest w Contrast (08/06/2013 11:08 AM PST) + + | Specimen | + + | | + + + + + | Narrative | Performed At | + + + | [facility] | [place] | | Department [address] [place] | [facility] | | [ rep ct street1+2] [ rep [facility] | | st zip] Signed | - IMAGING | | | | | Patient Name: ROSARIO GRAMAJO Remington | | | Physician: ANIBAL : [id number] Age: 38 Sex: M Unit | | | #: [id number] Exam Date: 08/06/13 Location: | | | ER Report #: [id number] Page: | | | %(RAD)RES..mtdd.print.filter("pg") of %(RAD) | | | RES..mtdd.print.filter("tpg") | | | | | | Accession Number: [id number] | | | CT CHEST WITH CONTRAST CLINICAL HISTORY: CHEST PAIN. | | | COMPARISON: CTA 05/18/2013. TECHNIQUE: Imaging | | | is performed through the chest into the upper abdomen following the | | | intravenous injection of 60 mL of Isovue-370. The injection is timed | | | for CT pulmonary angiography. FINDINGS: The injection | | | is adequate with Hounsfield units in the main pulmonary artery | | | measuring 300. There are no filling defects to suggest | | | pulmonary embolism. No enlargement of the pulmonary arteries. No | | | evidence for right heart strain. No pericardial thickening. There is | | | no aneurysmal dilatation of the thoracic aorta. No visible | | | dissection on this limited exam due to timing of the contrast bolus. | | | There is a very small right pleural effusion. There are atelectatic | | | changes in both lung bases. There is no pneumothorax. No mediastinal | | | or hilar lymphadenopathy. UPPER ABDOMEN: Low density | | | liver suggests fatty infiltration. Partial visualization of spinal | | | instrumentation at the level of the 10th rib. There are no lytic or | | | blastic bone lesions of concern. The visible portions of the screws | | | and vertical rods appear to be intact. IMPRESSION: | | | 1. NO EVIDENCE FOR PULMONARY EMBOLISM. 2. VERY SMALL | | | RIGHT PLEURAL EFFUSION AND BILATERAL ATELECTASIS IN THE LOWER LOBES. | | | 3. NO PNEUMOTHORAX. 4. NO ANEURYSMAL | | | DILATATION OF THE THORACIC AORTA. 5. PARTIAL | | | VISUALIZATION OF FATTY INFILTRATION OF THE LIVER. NOTE: A | | | PRELIMINARY REPORT WAS PLACED IN THE GENEVIEVE SECTION AND PRINTED TO THE | | | EMERGENCY ROOM. Dictated Date/Time: 08/06/2013 11:08 | | | Transcribed Date/Time: 08/06/2013 11:35 Manager Hi: | | | SSP <<Signature on File>> | | | Aj | | | Alyssa Monahan MD08/06/13 4642 <Electronically signed by Aj Shah | | | Hero LYNCH> Aj Monahan MD 08/06/13 1103 | | | Manager Hi: bepretty Hyzmwpjoyqyjh47/06/13 1135 | | | Susana Garcia MD | | + + + + + + + + | Performing | Address | City/State/Zipcode | Phone Number | | Organization | | | | + + + + + | [facility] | [address] | [place] | [phone] | | [facility] | | [address] | | | - IMAGING | | | | + + + + + Lipase (08/06/2013 10:37 AM PST) + +-------+ + + + | Component | Value | Ref Range | Performed | Pathologist | | | | | At | Signature | + +-------+ + + + | Lipase | 21 | 0 - 60 U/L | [facility] | | | | [address] | [place] | [phone] | | [facility] | | [address] | | | - LABORATORY | | | | + + + + + | [facility] | [address] | [place] | | | [facility] | | [address] | | | - LABORATORY | | | | + + + + + CBC with Differential (08/06/2013 10:22 AM PST) + + + + + + | Component | Value | Ref Range | Performed | Pathologist | | | | | At | Signature | + + + + + + | MANUAL | NO | | [facility] | | | [facility] | | | [facility] | | | L ? | | | MEDICAL | | | | | | CENTER - | | | | | | LABORATORY | | + + + + + + | WBC | 9.3 | 4.0 - 11.0 K/uL | [facility] | | | | | | [facility] | | | | | | MEDICAL | | | | | | CENTER - | | | | | | LABORATORY | | + + + + + + | RBC | 4.48 | 4.30 - 5.70 | [facility] | | | | | M/uL | [facility] | | | | | | MEDICAL | | | | | | CENTER - | | | | | | LABORATORY | | + + + + + + | Hemoglobin | 13.7 | 13.5 - 18.0 | [facility] | | | | | gm/dL | [facility] | | | | | | MEDICAL | | | | | | CENTER - | | | | | | LABORATORY | | + + + + + + | Hematocrit | 39.7 (L) | 40.0 - 51.0 % | [facility] | | | | | | [facility] | | | | | | MEDICAL | | | | | | CENTER - | | | | | | LABORATORY | | + + + + + + | MCV | 88.7 | 83.0 - 101.0 fL | [facility] [...] + + + + | RDW-CV | 15.6 (H) | <15.0 % | [facility] | | | | | | [facility] | | | | | | MEDICAL | | | | | | CENTER - | | | | | | LABORATORY | | + + + + + + | Platelet | 196 | 140 - 440 K/uL | [facility] | | | Count | | | [facility] | | | | | | MEDICAL | | | | | | CENTER - | | | | | | LABORATORY | | + + + + + + | % | 75.3 (H) | 45 - 75 % | [facility] | | | Neutrophils | | | [facility] | | | | | | MEDICAL | | | | | | CENTER - | | | | | | LABORATORY | | + + + + + + | % | 15.2 (L) | 20 - 45 % | [facility] | | | Lymphocytes | | | [facility] | | | | | | MEDICAL | | | | | | CENTER - | | | | | | LABORATORY | | + + + + + + | % Monocytes | 7.4 | 4 - 12 % | [facility] | | | | | | [facility] | | | | | | MEDICAL | | | | | | CENTER - | | | | | | LABORATORY | | + + + + + + | % | 1.6 | 0 - 5 % | [facility] | | | Eosinophils | | | [facility] | | | | | | MEDICAL | | | | | | CENTER - | | | | | | LABORATORY | | + + + + + + | % Basophils | 0.5 | 0 - 1 % | [facility] | | | | | | [facility] | | | | | | MEDICAL | | | | | | CENTER - | | | | | | LABORATORY | | + + + + + + | Absolute | 7.0 (H) | 1.5 - 6.6 K/uL | [facility] | | | Neutrophils | | | [facility] | | | | | | MEDICAL | | | | | | CENTER - | | | | | | LABORATORY | | + + + + + + | Absolute | 1.4 | 0.6 - 3.2 K/uL | [facility] [...] | | Monocytes | | | [facility] | | | | | | MEDICAL | | | | | | CENTER - | | | | | | LABORATORY | | + + + + + + | Absolute | 0.1 | 0.0 - 0.4 K/uL | [facility] | | | Eosinophils | | | [facility] | | | | | | MEDICAL | | | | | | CENTER - | | | | | | LABORATORY | | + + + + + + | Absolute | 0.0 | 0.0 - 0.1 K/uL | [facility] | | | Basophils | | | [facility] | | [...] + | [facility] | [address] | [place] | [phone] | | [facility] | | [address] | | | - LABORATORY | | | | + + + + + | [facility] | [address] | [place] | | | [facility] | | [address] | | | - LABORATORY | | | | + + + + + Iraidaime INR (08/06/2013 10:22 AM PST) + + + + + + | Component | Value | Ref Range | Performed | Pathologist | | | | | At | Signature | + + + + + + | Prothrombin | 28.3 (H) | 11.3 - 13.9 | [facility] | | | Time | | seconds | [facility] | | | | [...] + + + + | INR | 2.8 (H)Comment: INR: | 0.9 - 1.1 | [...] + | [facility] | [address] | [place], [place] | [phone] | | [facility] | | [address] | | | - LABORATORY | | | | + + + + + | [facility] | [address] | [place], [place] | | | [facility] | | [address] | | | - LABORATORY | | | | + + + + + D-Dimer (08/06/2013 10:22 AM PST) + + + + + + | Component | Value | Ref Range | Performed | Pathologist | | | | | At | Signature | + + + + + + | D-DIMER, | 0.26Comment: This | <0.50 ug/mlFEU | [facility] | | | QUANTITATIV | quantitative D-Dimer | | [facility] | | | E | assay has been evaluated | | MEDICAL | | | | for screening for | | CENTER - | | | | venous thrombotic | | LABORATORY | | | | disease, and may be | | | | | | useful in ruling out, | | | | | | but not ruling in | | | | | | disease. Values less | | | | | | than 0.50 ug/mL FEU | | | | | | (Fibrinogen Equivalent | | | | | | Units) have a negative | | | | | | predictive value of | | | | | | approximately 95% for | | | | | | ruling out large | | | | | | pulmonary emboli or | | | | | | proximal deep vein | | | | | | thrombosis. Distal DVT | | | | | | are not excluded. An | | | | | | elevated D-dimer can be | | | | | | present in patients | | | | | | with liver disease, | | | | | | , eclampsia, | | | | | | heart disease and some | | | | | | cancers among other | | | | | | conditions. The | | | | | | presence of rheumatoid | | | | | | factor at a level >50 | | | | | | IU/mL may falsely | | | | | | elevate the determined | | | | | | D-dimer levels. | | | | + + + + + + + + | Specimen | + + | | + + + + + + + | Performing | Address | City/State/Zipcode | Phone Number | | Organization | | | | + + + + + | [facility] | [address] | [place] | [phone] | | [facility] | | [address] | | | - LABORATORY | | | | + + + + + | [facility] | [address] | [place] | | | [facility] | | [address] | | | - LABORATORY | | | | + + + + + documented in this encounter Visit Diagnoses Not on filedocumented in this encounter
--- OUTSIDE RECORDS SUMMARY | ~2019-09-01 | XMS | Encounter Summary ---
Demographics + + + | Address | [address] | | | [place] [address] | + + + | Home Phone | | + + + | Preferred Language | Unknown | + + + | Marital Status | | + + + | Zoroastrian Affiliation | Unknown | + + + | Race | Unknown | + + + | Ethnic Group | Unknown | + + + Author + + + | Author | [facility] | | | and [place] | + + + | Organization | [facility] | | | and [place] | + + + | Address | Unknown | + + + | Phone | Unavailable | + + + Support + + + + + | Name | Relationship | Address | Phone | + + + + + | Alma Gramajo | ECON | [address] | | | | | [place] [address] | | + + + + + Care Team Providers + +------+ + | Care Biological Science Technician Name | Role | Phone | + +------+ + | Priyanka Sal PA-C | PCP | | + +------+ + Reason for Visit + + + | Reason | Comments | + + + | Medication Refill | | + + + Encounter Details +--------+--------+ + + + | Date | Type | Department | Care Team | Description | +--------+--------+ + + + | 02/19/ | Refill | [facility] | Adal Roberto | Medication Refill | | 2017 | | NEUROSURGERY [address] | | | | | [address] | [address] | | | | | [place], [place] | [place] [address] | | | | | [address] | [phone] | | | | | [phone] | | | +--------+--------+ + + + Social History + +-------+ [...]
--- OUTSIDE RECORDS SUMMARY | ~2019-09-01 | XMS | Encounter Summary ---
Demographics + + + | Address | [address] | | | [place] [address] | + + + | Home Phone [...] | Organization | [facility] | | | and [...] | | | | | [place] [address] | | + + + + + Care Team Providers + +------+ + | Care Centralized Traffic Control Operator Name | Role | Phone | + +------+ + PCP | Unavailable | + +------+ + Encounter Details +--------+ + + + + | Date | Type | Department | Care Team | Description | +--------+ + + + + | 10/12/ | Hospital | [facility] | Susana Garcia | | | 2007 | Encounter | MED CTR EMERGENCY | Conner Mansfield MD [address] | | | | | CENTER [address] | [facility] | | | | | [place] | [place] [address] | | | | | [address] | [phone] | | | | | [phone] | | | +--------+ + + + [...]
--- OUTSIDE RECORDS SUMMARY | ~2019-09-01 | XMS | Encounter Summary ---
Demographics + + + | Address | [address] | | | [place] [address] | + + + | Home Phone | | + + + | Preferred Language | Unknown | + + + | Marital Status | | + + + | Samaritan Affiliation | Unknown | + + + | Race | Unknown | + + + | Ethnic Group | Unknown | + + + Author + + + | Author | [facility] | | | and [place] | + + + | Organization | [facility] [...] | | | | | [place] [address] | | + + + + + Care Team Providers + +------+ + | Care Lombardi Developer Name | Role | Phone | + +------+ + | Hudson Nair | PCP | | | MD | | | + +------+ + Encounter Details +--------+ + + + + | Date | Type | Department | Care Team | Description | +--------+ + + + + | 11/25/ | Hospital | [facility] | Emil Garcia, | | | 2013 | Encounter | MED CTR XRAY [address] | [address] | | | | | [place] | [address] [place] | | | | | [place] [address] | [address] | | | | | [phone] | | | +--------+ + + + [...] + +---------+ + + | | Take by mouth as | | 0 | | | | HYDROCODONE-ACETAMIN | needed. | | | | 5 | | OPHEN PO | | | | | | + [...] | | (COUMADIN) 7.5 mg | Daily. Fri, | | | | 6 | | tablet | Fri, Sat | | | | | + + [...] AT L2-3. Dictated and Signed by: Juan Ramires MD | | | Electronically signed: 11/26/2013 [...] + + | Performing | Address | City[facility] | Phone Number | | Organization | | | | + +---------+ + + | [facility] | | | [phone] | + +---------+ + + | [facility] | | | [phone] | + +---------+ + + documented in this encounter Visit Diagnoses Not on filedocumented in this encounter"
--- OUTSIDE RECORDS SUMMARY | ~2019-09-01 | XMS | Encounter Summary ---
Demographics + + + | Address | [address] | | | [place] [address] | + + + | Home Phone | | + + + | Preferred Language | Unknown | + + + | Marital Status | | + + + | Adventism Affiliation | Unknown | + + + | Race | Unknown | + + + | Ethnic Group | Unknown | + + + Author + + + | Author | [facility] | | | and [place] | + + + | Organization | [facility] | | | and [place] | + + + | Address | Unknown | + + + | Phone | Unavailable | + + + Support + + + + + | Name | Relationship | Address | Phone | + + + + + | Alma Gramajo | ECON | [address] | | | | | [place] [address] | | + + + + + Care Team Providers + +------+ + | Care Bus Info Consultant Name | Role | Phone | + +------+ + | Priyanka Sal PA-C | PCP | | + +------+ + Reason for Visit + + + | Reason | Comments | + + + | Follow-up | Discuss Surgery | + + + Encounter Details +--------+---------+ + + + | Date | Type | Department | Care Team | Description | +--------+---------+ + + + | 06/25/ | Office | [facility] | Emil Garcia, | Osteoarthritis of | | 2016 | Visit | NEUROSURGERY [address] | DO [address] | spine with | | | | [address] | [address] [place], [place] | radiculopathy, | | | | [place], [place] | [address] | lumbar region | | | | [address] | | (Primary Dx); Lumbar | | | | [phone] | | stenosis; Lumbar | | | | | | radicular pain; | | | | | | Chronic bilateral | | | | | | low back pain with | | | | | | bilateral sciatica; | | | | | | Right leg weakness | +--------+---------+ + + + Social [...] + + + | Blood Pressure | 125/76 | 06/25/2016 1:04 PM | | | | | PDT | | + + + + + | Pulse | 68 | 06/25/2016 1:04 PM | | | | | PDT | | + + + + + | Temperature | - | - | | + + + + + | Respiratory Rate | 14 | 06/25/2016 1:04 PM | | | | | PDT | | + + + + + | Oxygen Saturation | - | - | | + + + + + | Inhaled Oxygen | - | - | | | Concentration | | | | + + + + + | Weight | 133.8 kg (295 lb) | 06/25/2016 1:04 PM | | | | | PDT | | + + + + + | Height | 188 cm (6' 2") | 06/25/2016 1:04 PM | | | | | PDT | | + + + + + | Body Mass Index | 37.88 | 06/25/2016 1:04 PM | | | | | PDT | | + + + + + documented in this encounter Patient Instructions Patient Instructions Emil Garcia DO - 06/25/2016 1:31 PM PDTPlease follow-up with you r primary care physician for preoperative clearance. Please present for surgery when scheduled. Back Care Tips Caring for your back These are things you can do to prevent a recurrence of acute back pain and to reduce sympto ms from chronic back pain: Maintain a healthy weight. If you are overweight, losing weight will help most types of back pain. Exercise is an important part of recovery from most types of back pain. The muscles behi nd and in front of the spine support the back. This means strengthening both the back muscle s and the abdominal muscles will provide better support for your spine. Swimming and brisk walking are good overall exercises to improve your fitness level. Practice safe lifting methods (below). Practice good posture when sitting, standing and walking. Avoid prolonged sitting. This puts more stress on the lower back than standing or walking. Wear quality shoes with sufficient arch support. Foot and ankle alignment can affect chente k symptoms. Women should avoid wearing high heels. Therapeutic massage can help relax the back muscles without stretching them. During the first 24 to 72 hours after an acute injury or flare-up of chronic back pain, apply an ice pack to the painful area for 20 minutes and then remove it for 20 minutes, over a period of 60 to 90 minutes, or several times a day. As a safety precaution, do not use a heating pad at bedtime. Sleeping on a heating pad can lead to skin caceres or tissue damage. You can alternate ice and heat therapies. Medications Talk to your healthcare provider before using medicines, especially if you have other medic al problems or are taking other medicines. You may use acetaminophen or ibuprofen to control pain, unless your healthcare provider prescribed other pain medicine. If you have chronic conditions like diabetes, liver or kidne y disease, stomach ulcers, or gastrointestinal bleeding, or are taking blood thinners, talk with your healthcare provider before taking any medicines. Be careful if you are given prescription pain medicines, narcotics, or medicine for musc le spasm. They can cause drowsiness, affect your coordination, reflexes, and judgment. Do no t drive or operate heavy machinery while taking these types of medicines. Take prescription pain medicine only as prescribed by your healthcare provider. Lumbar stretch Here is a simple stretching exercise that will help relax muscle spasm and keep your back m ore limber. If exercise makes your back pain worse, don t do it. Lie on your back with your knees bent and both feet on the ground. Slowly raise your left knee to your chest as you flatten your lower back against the erasmo or. Hold for 5 seconds. Relax and repeat the exercise with your right knee. Do 10 of these exercises for each leg. Safe lifting method Don t bend over at the waist to lift an object off the floor. Instead, bend your kne es and hips in a squat. Keep your back and head upright Hold the object close to your body, directly in front of you. Straighten your legs to lift the object. Lower the object to the floor in the reverse fashion. If you must slide something across the floor, push it. Posture tips Sitting Sit in chairs with straight backs or low-back support. Keep your knees lower than your hips , with your feet flat on the floor. When driving, sit up straight. Adjust the seat forward so you are not leaning toward the st [employer] wheel. A small pillow or rolled towel behind your lower back may help if you are dr iving long distances. Standing When standing for long periods, shift most of your weight to one leg at a time. Alternate l egs every few minutes. Sleeping The best way to sleep is on your side with your knees bent. Put a low pillow under your hea d to support your neck in a neutral spine position. Avoid thick pillows that bend your neck to one side. Put a pillow between your legs to further relax your lower back. If you sleep o n your back, put pillows under your knees to support your legs in a slightly flexed position . Use a firm mattress. If your mattress sags, replace it, or use a 1/2-inch plywood board un vera the mattress to add support. Follow-up care Follow up with yourhealthcare provider, or as advised. If X-rays, a CT scan or an MRI scan were taken, they will be reviewed by a radiologist. You will be notified of any new findings that may affect your care. Call 911 Seek emergency medical care if any of the following occur: Trouble breathing Confusion Very drowsy Fainting or loss of consciousness Rapid or very slow heart rate Loss of bowel or bladder control When to seek medical care Call your healthcare provider if any of the following occur: Pain becomes worse or spreads to your arms or legs Weakness or numbness in one or both arms or legs Numbness in the groin area [id number] [employer]. [address] [place] [address], [place] [address]. All righ ts reserved. This information is not intended as a substitute for professional medical care. Always follow your healthcare professional's instructions. documented in this encounter Progress Notes Emil Garcia DO - 06/25/2016 1:31 PM PDTFormatting of this note might be different fro m the original. Emil Garcia DO [address] [facility] [address] [place] [address] FAX: NEUROSURGERY FOLLOW-UP CHIEF COMPLAINT: Chief Complaint Patient presents with Follow-up Discuss Surgery HISTORY OF PRESENT ILLNESS: The patient is a 41 y.o. male who presets in follow-up for his back and leg symptoms. This is following a injury he sustained at work. In August 2015 w joe he was lifting a box at his job at [employer]. While lifting this box and t wisting he felt a pop in his back and felt sudden onset of severe pain and pain shooting akira n both legs.It took quite a while for him to get his MRI authorized and completed.. He previously underwent emergent decompression and fusion [...] lef t leg is now affected too. Since his last visit he underwent epidural [...] Current Outpatient Prescriptions Medication Sig Dispense Refill ibuprofen (ADVIL,MOTRIN) 600 MG tablet lovastatin (MEVACOR) 20 mg tablet No current facility-administered medications for this visit. ALLERGIES: No Known Allergies SOCIAL HISTORY: The patient reports that he has never smoked. He uses smokeless tobacco. He reports that h e does not drink alcohol or use illicit drugs. FAMILY HISTORY: Family History Problem Relation Age of Onset Other (see comment) Mother Heart problems Cancer Paternal Grandmother Other (see comment) Paternal Grandfather Heart problems INTERIM PHYSICAL EXAMINATION: Blood pressure 125/76, pulse 68, resp. rate 14, height 1.88 m (6' 2"), weight 133.811 [...] no apparent deficits with short or terminal computer operator memory. CRANIAL NERVES: Fundoscopic Exam: The [...] Intrinsics 5 5 Ulnar Intrinsics 5 5 Barge Master Strength 5 5 Hip Flexion 4 5 [...] ABSENT PLANTAR DOWNGOING DOWNGOING GAIT: Gait is antalgic. PERIPHERAL NERVE/MISC: Tinel [...] significant instability. ASSESSMENT: Encounter Diagnoses Name Primary? Osteoarthritis of spine with radiculopathy, lumbar region Yes Lumbar stenosis Lumbar radicular pain Chronic bilateral low back pain with bilateral sciatica Right leg weakness Past Medical History Diagnosis Date H/O blood [...] the probability and rate of fusion. He will follow-up with his primary care provider for preoperative clearance and optimizatio n prior to presenting for surgery. ELECTRONICALLY SIGNED BY: Emil Garcia DO, 06/25/2016 13:38 documented in this en counter Plan of Treatment Not on filedocumented as of this encounter Visit Diagnoses + + | Diagnosis | + + | Osteoarthritis of spine with radiculopathy, lumbar region - Primary | + + | Lumbar stenosis Spinal stenosis, lumbar region, without neurogenic claudication | + + | Lumbar radicular pain Thoracic or lumbosacral neuritis or radiculitis, unspecified | + + | Chronic bilateral low back pain with bilateral sciatica | + + | Right leg weakness Other musculoskeletal symptoms referable to limbs | + + documented in this encounter
--- OUTSIDE RECORDS SUMMARY | ~2019-09-01 | XMS | Encounter Summary ---
Demographics + + + | Address | [address] | | | [place] [address] | + + + | Home Phone | | + + + | Preferred Language | Unknown | + + + | Marital Status | | + + + | Voodoo Affiliation | Unknown | + + + | Race | Unknown | + + + | Ethnic Group | Unknown | + + + Author + + + | Author | [facility] | | | and [place] | + + + | Organization | [facility] [...] | | | | | [place] [address] | | + + + + + Care Team Providers + +------+ + | Care Word Processing Machine Operator Name | Role | Phone [...] | +--------+ + + + + | 11/06/ | Telephone | [facility] [place] | Emil Garcia, | Procedure | | 2017 | | NEUROSURGERY [address] | DO [address] | | | | | [address] | [address] [place], [place] | | | | | [place], [place] | [address] | | | | | [address] | | | | | | [phone] | | | +--------+ + + + [...]
--- OUTSIDE RECORDS SUMMARY | ~2019-09-01 | XMS | Encounter Summary ---
Demographics + + + | Address | [address] | | | [place] [address] | + + + | Home Phone | | + + + | Preferred Language | Unknown | + + + | Marital Status | | + + + | Episcopalian Affiliation | Unknown | + + + | Race | Unknown | + + + | Ethnic Group | Unknown | + + + Author + + + | Author | [facility] | | | and [place] | + + + | Organization | [facility] | | | and [...] | | | | | [place] [address] | | + + + + + Care Team Providers + +------+ + | Care Fire Patrol Name | Role | Phone | + +------+ + | Priyanka Sal PA-C | PCP | | + +------+ + Encounter Details +--------+ + + + + | Date | Type | Department | Care Team | Description | +--------+ + + + + | 07/29/ | [facility] | [facility] | Cris Gutierrez | Inguinal hernia of | | 2018 | Encounter | MED CTR ULTRASOUND | MD [address] | right side without | | | | [address] [place] | [address] [place] | obstruction or | | | | [place], [place] | [place] [address] | gangrene | | | | [address] | [phone] | | | | | [phone] | | | +--------+ + + + [...] | + +--------+ + + + | US GROIN RIGHT | Routin | 07/29/2018 | Inguinal hernia of | Results for this | | | e | 2:26 PM | right side without | procedure are in the | | | | PST | obstruction or | results section. | | | | | gangrene | | + +--------+ + + + documented in this encounter Results US Groin Right (07/29/2018 2:26 PM PST) + + | Specimen | + + | | + + + + + | Narrative | Performed At | + + + | TECHNIQUE: Right groin B-mode ultrasound with color and duplex | [facility] | | doppler CLINICAL INFORMATION: R/O inguinal femoral hernia. | | | COMPARISON: CT dated 03/01/2018. FINDINGS: Small soft tissue | | | bulge noted at the right inguinal region during Valsalva. The bulge | | | reduces after Valsalva. No soft tissue mass or cystic lesion. No | | | sonographic findings to suggest bowel involvement. No inguinal | | | lymphadenopathy appreciated. IMPRESSION - Small right | | | inguinal hernia. Dictated and Signed by: Javier Hernández MD | | | Electronically signed: 07/29/2018 2:28 PM | | + + + + + | Procedure Note | + + | Raoul, Rad Results In - 07/29/2018 2:32 PM PST | | TECHNIQUE: Right groin B-mode ultrasound with color and duplex doppler | | | | CLINICAL INFORMATION: R/O inguinal femoral hernia. | | | | COMPARISON: CT dated 03/01/2018. | | | | FINDINGS: | | | | Small soft tissue bulge noted at the right inguinal region during Valsalva. The | | bulge reduces after Valsalva. No soft tissue mass or cystic lesion. No | | sonographic findings to suggest bowel involvement. No inguinal lymphadenopathy | | appreciated. | | | | | | IMPRESSION - Small right inguinal hernia. | | | | Dictated and Signed by: Javier Hernández MD | | Electronically signed: 07/29/2018 2:28 PM | + + + +---------+ + [...] gangrene | + + documented in this encounter"
--- OUTSIDE RECORDS SUMMARY | ~2019-09-01 | XMS | Encounter Summary ---
Demographics + + + | Address | [address] | | | [place] [address] | + + + | Home Phone [...] | [facility] | | | and [...] | | | | | [place] [address] | | + + + + + Care Team Providers + +------+ + | Care Community Center Worker Name | Role | Phone | + +------+ + | Priyanka Sal PA-C | PCP | | + +------+ + Encounter Details +--------+ + + + + | Date | Type | Department | Care Team | Description | +--------+ + + + + | 11/04/ | Orders Only | [facility] [place] | Emil Garcia, | Osteoarthritis of | | 2017 | | NEUROSUR[address]ERY [address] | DO [address] | spine with | | | | [address] | [address] [place], [place] | radiculopathy, | | | | [place], [place] | [address] | lumbar region | | | | [address] | | (Primary Dx); Lumbar | | | | [phone] | | stenosis; Lumbar | | | | | | radicular pain; | | | | | | Chronic midline low | | | | | | back pain with | | | | | | left-sided sciatica; | | | | | | Chronic midline low | | | | | | back pain with | | | | | | bilateral sciatica; | | | | | | Right leg weakness | +--------+ + + + + [...] radiculitis, unspecified | + + | Chronic midline low back pain with left-sided sciatica | + + | Chronic midline low back pain with bilateral sciatica | + + | Right leg weakness Other musculoskeletal symptoms referable to limbs | + + documented in this encounter"
--- OUTSIDE RECORDS SUMMARY | ~2019-09-01 | XMS | Encounter Summary ---
Demographics + + + | Address | [address] | | | [place] [address] | + + + | Home Phone | | + + + | Preferred Language | Unknown | + + + | Marital Status | | + + + | Pentecostalism Affiliation | Unknown | + + + | Race | Unknown | + + + | Ethnic Group | Unknown | + + + Author + + + | Author | [facility] | | | and [place] | + + + | Organization | [facility] | | | and [...] | | | | | [place] [address] | | + + + + + Care Team Providers + +------+ + | Care Utility Driver Name | Role | Phone | [...] [address] | | | | | [place], | [place] | | | | | [place] [address] | [address] | | | | | [phone] | | | +--------+ + + + [...]
--- OUTSIDE RECORDS SUMMARY | ~2019-09-01 | XMS | Encounter Summary ---
Demographics + + + | Address | [address] | | | [place] [address] | + + + | Home Phone [...] | Organization | [facility] | | | and [place] | + + + | Address | Unknown | + + + | Phone | Unavailable | + + + Support + + + + + | Name | Relationship | Address | Phone | + + + + + | Alma Gramajo | ECON | [address] | | | | | [place] [address] | | + + + + + Care Team Providers + +------+ + | Care Shelter Monitor Name | Role | Phone | + [...] | | | | | | | [place] | | | | | | | ARTHRODESIS | | | | | | | POSTERIOR/PO | | | | | | | STEROLATERAL | | | | | | | LUMBAR [place] | | | | | | | LUMBAR SPINE | | | | | | | | | | | | | | FUSION,ANTER | | | | | | | APPRCH [place] | | | | | | | [...] + + | 02/05/ | Hospital | [facility] | Emil Garcia, | Gait abnormality | | 2017 - | Encounter | MED CTR SURGICAL | DO [address] | (Primary Dx) | | | | [address] | [address] [place], [place] | | | 02/09/ | | [place] [address] | [id number] | | | 2016 | | [phone] | | | +--------+ + + + [...] month post op appointment before your appointment. [phone] [email or web address]. [address] [place] [address]. All righ ts reserved. This information is [...] control -DVT prophylaxis -DC plan: home with [facility] tomorrow likely Nyasia Mcrae RRT - 02/07/2017 [...] might be different from the origin al. 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 MOTOR EXAM: Motor strength is stable [...] Aparicio PA - 02/06/2017 7:24 AM PDT [facility] NEUROSURGERY PROGRESS NOTE PATIENT NAME: Zaheer Gramajo [...] has no apparent deficits with short or mcc memory. MOTOR EXAM: Motor strength is stable. 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
--- OUTSIDE RECORDS SUMMARY | ~2019-09-01 | XMS | Encounter Summary ---
Demographics + + + | Address | [address] | | | [place] [address] | + + + | Home Phone | | + + + | Preferred Language | Unknown | + + + | Marital Status | | + + + | Episcopal Affiliation | Unknown | + + + | Race | Unknown | + + + | Ethnic Group | Unknown | + + + Author + + + | Author | [facility] | | | and [place] | + + + | Organization | [facility] | | | and [place] | + + + | Address | Unknown | + + + | Phone | Unavailable | + + + Support + + + + + | Name | Relationship | Address | Phone | + + + + + | Alma rGamajo | ECON | [address] | | | | | [place] [address] | | + + + + + Care Team Providers + +------+ + | Care Railway Shunter Name | Role | Phone | + +------+ + | Priyanka Sal PA-C | PCP | | + +------+ + Encounter Details +--------+ + + + + | Date | Type | Department | Care Team | Description | +--------+ + + + + | 01/31/ | Orders Only | [facility] [place] | Emil Garcia, | Osteoarthritis of | | 2017 | | NEUROSURGERY [address] | DO [address] | spine with | | | | [address] | [address] [place], [place] | radiculopathy, | | | | [place], [place] | [address] | lumbar region | | | | [address] | | (Primary Dx); Status | | | | [phone] | | post lumbar spinal | | | | | | fusion | +--------+ + + + [...] CLINICAL INFORMATION: S/P Lumbar fusion. COMPARISON: | [facility] | | 02/05/2017. FINDINGS: AP and lateral views of the lumbosacral | [facility] | | spine. Posterior pedicle screw and magali fusion changes at L3-4 [facility] | | with interbody graft spacer. [...] + | Raoul, Rad Results In - 03/13/2017 1:39 PM PDT [...] | + + + + + | [facility] | [address] | [place] | [phone] | | [facility] | | [address] | | | - IMAGING | | | | + + + + + documented in this encounter Visit Diagnoses + + | Diagnosis | + + | Osteoarthritis of spine with radiculopathy, lumbar region - Primary | + + | Status post lumbar spinal fusion Arthrodesis status | + + documented in this encounter"
--- OUTSIDE RECORDS SUMMARY | ~2019-09-01 | XMS | Encounter Summary ---
Demographics + + + | Address | [address] | | | [place] [address] | + + + | Home Phone | | + + + | Preferred Language | Unknown | + + + | Marital Status | | + + + | Sabianism Affiliation | Unknown | + + + | Race | Unknown | + + + | Ethnic Group | Unknown | + + + Author + + + | Author | [facility] | | | and [place] | + + + | Organization | [facility] | | | and [place] | + + + | Address | Unknown | + + + | Phone | Unavailable | + + + Support + + + + + | Name | Relationship | Address | Phone | + + + + + | Alma Gramajo | ECON | [address] | | | | | [place] [address] | | + + + + + Care Team Providers + +------+ + | Care Librarian School Name | Role | Phone | + +------+ + | Hudson Nair | PCP | | | MD | | | + +------+ + Reason for Visit + + + | Reason | Comments | + + + | Letter for | | | School/Work | | + + + Encounter Details +--------+ + + + + | Date | Type | Department | Care Team | Description | +--------+ + + + + | 09/27/ | Telephone | [facility] [place] | Emil Garcia, | Letter for | | 2013 | | NEUROSURGERY [address] | DO [address] | School/Work | | | | [address] | [address] [place], [place] | | | | | [place], [place] | [address] | | | | | [address] | | | | | | [phone] | | | +--------+ + + + [...]
--- OUTSIDE RECORDS SUMMARY | ~2019-09-01 | XMS | Encounter Summary ---
Demographics + + + | Address | [address] | | | [place] [address] | + + + | Home Phone | | + + + | Preferred Language | Unknown | + + + | Marital Status | | + + + | Yarsani Affiliation | Unknown | + + + | Race | Unknown | + + + | Ethnic Group | Unknown | + + + Author + + + | Author | [facility] | | | and [place] | + + + | Organization | [facility] | | | and [...] | | | | | [place] [address] | | + + + + + Care Team Providers + +------+ + | Care Geometrician Name | Role | Phone | + [...] [address] | | | | | [place], [place] | [place] [address] | | | | | [address] | [phone] | | | | | [phone] | | | +--------+--------+ + + + [...]
--- OUTSIDE RECORDS SUMMARY | ~2019-09-01 | XMS | Encounter Summary ---
Demographics + + + | Address | [address] | | | [place] [address] | + + + | Home Phone [...] | Organization | [facility] | | | and [...] | | | | | [place] [address] | | + + + + + Care Team Providers + +------+ + | Care Breading Machine Tender Name | Role | Phone | [...] | | | | obstruction | [place] [address] | [place] [address] | | | | | or gangrene | Phone: | Phone: | | | | | | [phone] | [phone] | | | | | | Fax: | Fax: | | | | | | [phone] | [phone] | +--------+ + + + + + [...] | | | | CENTER [address] | [place], [place] | obstruction or | | | | [place], [place] | [address] | gangrene (Primary | | | | [address] | | Dx) | | | | [phone] | | | +--------+ + + + [...] sent through Care Everywhere.Hernia Repair Donal bran (Iraqi)documented in this encounter Medications at Time of [...] of | Ordered: 07/22/2018 | | Surgery [place] - AMB | Referral | e | [...]
--- OUTSIDE RECORDS SUMMARY | ~2019-09-01 | XMS | Encounter Summary ---
Demographics + + + | Address | [address] | | | [place] [address] | + + + | Home Phone [...] [facility] | | | and [place] | + + + | Address | Unknown | + + + | Phone | Unavailable | + + + Support + + + + + | Name | Relationship | Address | Phone | + + + + + | Alma Gramajo | ECON | [address] | | | | | [place] [address] | | + + + + + Care Team Providers + +------+ + | Care Granulator Tender Name | Role | Phone | [...] | | | | obstruction | [place] [address] | [place] [address] | | | | | or gangrene | Phone: | Phone: | | | | | | [phone] | [phone] | | | | | | Fax: | Fax: | | | | | | [phone] | [phone] | +--------+ + + + + + Encounter Details +--------+---------+ + + + | Date | Type | Department | Care Team | Description | +--------+---------+ + + + | 09/03/ | Office | [facility] | Cris Gutierrez | S/P inguinal hernia | | 2018 | Visit | SURGERY [address] | MD [address] | repair (Primary Dx); | | | | [place], [place] | [address] | Post-operative | | | | [address] | [place] [address] | state; Inguinal | | | | [phone] | [phone] | hernia of right side | | [...] MESH; Surgeon: Cris Gutierrez MD; Loca tion: [facility] MAIN OR LUMBAR SPINE SURGERY N/A 02/05/2017 Procedure: L3-4 Extreme Lateral Interbody Fusion; Surgeon: Emil Garcia DO; Location: [facility] MAIN OR LUMBAR SPINE SURGERY 2013 - [facility] URETEROSCOPY Left 02/12/2018 Procedure: Left Ureteroscopy, Laser Lithotripsy and Stent; Surgeon: Satinder Elizondo MD; Location: [facility] MAIN OR Allergies Allergen Reactions Diazepam [...] this chart may have been created with [employer] voice recognition software. Occasi onal wrong-word or [...]
--- OUTSIDE RECORDS SUMMARY | ~2019-09-01 | XMS | Encounter Summary ---
Demographics + + + | Address | [address] | | | [place] [address] | + + + | Home Phone | | + + + | Preferred Language | Unknown | + + + | Marital Status | | + + + | Mu-Ism Affiliation | Unknown | + + + | Race | Unknown | + + + | Ethnic Group | Unknown | + + + Author + + + | Author | [facility] | | | and [place] | + + + | Organization | [facility] [...] | | | | | [place] [address] | | + + + + + Care Team Providers + +------+ + | Care Cargo Router Name | Role | Phone | + [...] [address] | [address] [place], [place] | | | | | [place], [place] | [address] | | | | | [address] | | | | | | [phone] | | | +--------+ + + + [...]
--- OUTSIDE RECORDS SUMMARY | ~2019-09-01 | XMS | Encounter Summary ---
Demographics + + + | Address | [address] | | | [place] [address] | + + + | Home Phone [...] Organization | [facility] | | | [...] Team Providers + +------+ + | Care Bobbin Hauler Name | Role | Phone | + +------+ + | Hudson Nair | PCP | | | MD | | | + +------+ + Encounter Details +--------+ + + + + | Date | Type | Department | Care Team | Description | +--------+ + + + + | 07/21/ | Anti-coag | [facility] | Fuad Childs, | DVT of leg (deep | | 2013 | visit | CLINIC [address] | RESPIRATORY ASSISTANT [address] | venous thrombosis) | | | | [address] [place], | [place] | ([facility]) (Primary Dx); | | | | [place] [address] | [address] | Monitoring for | | | | [phone] | | anticoagulant use | +--------+ + [...] encounter Progress Notes Fuad Childs ARNP - 07/21/2013 1:10 PM PSTContinue current warfarin schedule.[email or web address] ectronically signed by IVA Troncoso at 07/21/2013 1:10 PM PSTdocumented in this enc ounter Plan of Treatment Not on filedocumented as of this encounter Procedures + +--------+ + + + | Procedure Name | Priori | Date/Time | Associated Diagnosis | Comments | | | ty | | | | + +--------+ + + + | POC PT/INR | Routin | 07/21/2013 | | Results for this | | FINGERSTICK | e | | | procedure are in the | | | | | | results section. | + +--------+ + + + documented in this encounter Results POCT PT/INR fingerstick (07/21/2013) + +-------+ + + + | Component [...] + + + | INR, POC | 2.4 | | | | + +-------+ + [...]
--- OUTSIDE RECORDS SUMMARY | ~2019-09-01 | XMS | Encounter Summary ---
Demographics + + + | Address | [address] | | | [place] [address] | + + + | Home Phone | | + + + | Preferred Language | Unknown | + + + | Marital Status | | + + + | Yarsanism Affiliation | Unknown | + + + | Race | Unknown | + + + | Ethnic Group | Unknown | + + + Author + + + | Author | [facility] | | | and [place] | + + + | Organization | [facility] [...] | | | | | [place] [address] | | + + + + + Care Team Providers + +------+ + | Care Lead Instructor/Flight Attendant Name | Role | Phone | + [...] | | | | | | | [place] | | | | | | | [...] + | 02/12/ | Anesthesia | [facility] | Mason Vega | | | 2017 | Event | MED CTR OR INTRA OP | MD Negrito [address] | | | | | [address] | [address] [place] | | | | | [place] | [place] [address] | | | | | [address] | [phone] | | | | | [phone] | | | | | | | Luis Felipe Hewitt MD | | | | | | [address] | | | | | | [place] | | | | | | [address] | | | | | | | [...] +----+---+ + + | | 0 | Bot[place] | | | | 7 | 43-degrees [...] +----+---+ + + | | 0 | Bot[place] off | | | | 8 | [...] 02/12/18 1430 by | | eral | [id number] catheter system; | Verito Rodriguez RN | [...] 02/12/18; | Smiley Barrera RN | Greta Kibry RN | | | 1446 | | [...]
--- OUTSIDE RECORDS SUMMARY | ~2019-09-01 | XMS | Encounter Summary ---
Demographics + + + | Address | [address] | | | [place] [address] | + + + | Home Phone | | + + + | Preferred Language | Unknown | + + + | Marital Status | | + + + | Baptist Affiliation | Unknown | + + + | Race | Unknown | + + + | Ethnic Group | Unknown | + + + Author + + + | Author | [facility] | | | and [place] | + + + | Organization | [facility] | | | and [place] | + + + | Address | Unknown | + + + | Phone | Unavailable | + + + Support + + + + + | Name | Relationship | Address | Phone | + + + + + | Alma Gramajo | ECON | [address] | | | | | [place] [address] | | + + + + + Care Team Providers + +------+ + | Care Practice Performance Manager Name | Role | Phone | [...] Lumbar | Berhane Ramon | [address] | | | | | radiculopath | [address] | [place], | | | | | y Numbness | [address] | [place] | | | | | and tingling | [address] | [address] | | | | | of left leg | [place], | Phone: | | | | | Left leg | [place] [address] | [phone] | | | | | weakness | Phone: | Fax: | | | | | Procedures | [phone] | [phone] | | | | | MRI Lumbar | Fax: | | | | | | Spine wo | [phone] | | | | | | Contrast [...] Lumbar | Berhane E, | [address] | | | | | radiculopath | PA-C [address] | [place], | | | | | y Numbness | [address] | [place] | | | | | and tingling | [address] | [address] | | | | | of left leg | [place], | Phone: | | | | | Left leg | [place] [address] | [phone] | | | | | weakness | Phone: | Fax: | | | | | Procedures | [phone] | [phone] | | | | | MRI Lumbar | Fax: | | | | | | Spine wo | [phone] | | | | | | Contrast [...] + + | 12/23/ | Hospital | [facility] | Berhane Chavez, | Lumbar | | 2018 | Encounter | MED CTR MRI [address] | PA-C [address] | radiculopathy; | | | | [place], | [address] [place] | Numbness and | | | | [place] [address] | [place] [address] | tingling of left | | | | [phone] | [phone] | leg; Left leg | | | [...]
--- OUTSIDE RECORDS SUMMARY | ~2019-09-01 | XMS | Encounter Summary ---
Demographics + + + | Address | [address] | | | [place] [address] | + + + | Home Phone [...] | [facility] | | | and [...] | | | | | [place] [address] | | + + + + + Care Team Providers + +------+ + | Care Bank Boss Name | Role | Phone | + +------+ + | Priyanka Sal PA-C | PCP | | + +------+ + Encounter Details +--------+ + + + + | Date | Type | Department | Care Team | Description | +--------+ + + + + | 01/22/ | Emergency | [facility] | Ronald Louis | Foot infection | | 2015 | | MED CTR EMERGENCY | MD Silverio [address] | (Primary Dx) | | | | CENTER [address] | [address] | | | | | [place] | [place] [address] | | | | | [address] | [phone] | | | | | [phone] | | | +--------+ + + + [...] + + + | Blood Pressure | 141/84 | 01/22/2015 8:20 AM | | | | | PDT | | + + + + + | Pulse | 56 | 01/22/2015 8:20 AM | | | | | PDT | | + + + + + | Temperature | 37 C (98.6 F) | 01/22/2015 8:20 AM | | | | | PDT | | + + + + + | Respiratory Rate | 16 | 01/22/2015 8:20 AM | | | | | PDT | | + + + + + | Oxygen Saturation | 98% | 01/22/2015 8:20 AM | | | | | PDT [...] + + + documented in this encounter Medications [...] | | | (CLEOCIN) 300 MG | senior living between each | capsule | | 15 [...] documented in this encounter Administered Medications + +---------+ +--------+ +------+ | Medication Order | MAR | Action | Dose | Rate | Site | | | Action | Date | | | | + +---------+ +--------+ +------+ | clindamycin in dextrose | New Bag | 01/23/20 | 900 mg | 50 mL/hr | | | (CLEOCIN) IVPB 900 mg 900 mg, | | 15 8:37 | | | | | Intravenous, Administer over 60 | | AM PDT | | | | | Minutes, EVERY 12 HOURS (2 times | | | | | | | per day), First dose on Fri | | | | | | | 01/23/15 at 0800, Recheck by ER | | | | | | | doc with evening dose, | | | | | | + +---------+ +--------+ +------+ +---+---+ | | | +---+---+ documented in this encounter"
--- OUTSIDE RECORDS SUMMARY | ~2019-09-01 | XMS | Encounter Summary ---
Demographics + + + | Address | [address] | | | [place] [address] | + + + | Home Phone | | + + + | Preferred Language | Unknown | + + + | Marital Status | | + + + | Confucianist Affiliation | Unknown | + + + | Race | Unknown | + + + | Ethnic Group | Unknown | + + + Author + + + | Author | [facility] | | | and [place] | + + + | Organization | [facility] | | | and [place] | + + + | Address | Unknown | + + + | Phone | Unavailable | + + + Support + + + + + | Name | Relationship | Address | Phone | + + + + + | Alma Gramajo | ECON | [address] | | | | | [place] [address] | | + + + + + Care Team Providers + +------+ + | Care Restaurant Server Name | Role | Phone | + [...] | | | | CENTER [address] | [address] | | | | | [place] | [place] [address] | | | | | [address] | [phone] | | | | | [phone] | | | +--------+ + + + [...] other co ncerns. Thank you for visiting [facility], Emergency Department. Please follow up with your [...] 1.001 - 1.030 | | | | [place], | | | | | | UA, [...] mL/min/1.73m2 | [facility] | | | [place] | RATE,ESTIMATED | | MEDICAL | | | | mL/min/1.68y3Cefq than | | CENTER - | | [...] ST. | [address] | [place] | [phone] | | [facility] | | [address] | | | - LABORATORY | | [...] | | | | | | [facility] | | | | | | MEDICAL [...] [address] | [place] | [phone] | | [facility] | | [address] | | | - LABORATORY | | [...]
--- OUTSIDE RECORDS SUMMARY | ~2019-09-01 | XMS | Encounter Summary ---
Demographics + + + | Address | [address] | | | [place] [address] | + + + | Home Phone [...] + | Organization | [facility] | | | and [...] | | | | | [place] [address] | | + + + + + Care Team Providers + +------+ + | Care Electric Motor Repair Supervisor Name | Role | Phone | [...] | | | | CENTER [address] | [place], [place] | Status post lumbar | | | | [place], [place] | [address] | spinal fusion | | | | [address] | | | | | | [phone] | Gabe Stein MD | | | | | | [address] | | | | | | [place], [place] | | | | | | [address] | | | | | | | [...]
--- OUTSIDE RECORDS SUMMARY | ~2019-09-01 | XMS | Encounter Summary ---
Demographics + + + | Address | [address] | | | [place] [address] | + + + | Home Phone [...] + | Organization | [facility] [...] | | | | | [place] [address] | | + + + + + Care Team Providers + +------+ + | Care Remediation Technician Name | Role | Phone | [...] | | | | CENTER [address] | [place], [place] | (Primary Dx) | | | | [place], [place] | [address] | | | | | [address] | | | | | | [phone] | | | +--------+ + + + [...] sent through Care Everywhere.ALLERGIC REACTI ON, DRUG (FRENCH)documented in this encounter Medications at Time of [...] | | | | | Intravenous, ONCE, [place] 02/16/17 at | | | | | [...] PDT | | | | | ONCE, [place] 02/16/17 at 1750, For 1 | | | | | | | dose | | | | | | + +---------+ +--------+-------+---+ +---+---+ | | | +---+---+ documented in this encounter
--- OUTSIDE RECORDS SUMMARY | ~2019-09-01 | XMS | Encounter Summary ---
Demographics + + + | Address | [address] | | | [place] [address] | + + + | Home Phone [...] | Organization | [facility] | | | and [...] | | | | | [place] [address] | | + + + + + Care Team Providers + +------+ + | Care Finishing Machine Operator Automatic Name | Role | Phone | + [...] | | | | | | | MS | | | | | | | ARTHRODESIS | | | | | | | POSTERIOR/PO | | | | | | | STEROLATERAL | | | | | | | LUMBAR MS | | | | | | | LUMBAR SPINE | | | | | | | | | | | | | | FUSION,ANTER | | | | | | | APPRCH MS | | | | | | | [...] + + | 02/05/ | Surgery | [facility] | Emil Garcia, | L3-4 Extreme Lateral | | 2017 | | MED CTR OR INTRA OP | DO [address] | Interbody Fusion | | | | [address] | [address] [place], [place] | | | | | [place], [place] | [id number] | | | | | [address] | | | | | | [phone] | | | +--------+---------+ + + + [...] month post op appointment before your appointment. 2443-2550 [employer] [address] [place] [address]. All righ ts reserved. This information is [...] control -DVT prophylaxis -DC plan: home with [facility] tomorrow likely Nyasia Mcrae RRT [...] might be different from the origin al. [facility] PROGRESS NOTE PATIENT NAME: Zaheer Gramajo [...] has no apparent deficits with short or correction memory. MOTOR EXAM: Motor strength is stable [...] perez PA - 02/06/2017 7:24 AM PDT [facility] PROGRESS NOTE PATIENT NAME: Zaheer Gramajo [...] mg 5 mg Oral Q6H PRN Adal oRberto PA-C docusate sodium (COLACE) capsule 100 mg [...] short or terminal make up operator memory. MOTOR EXAM: Motor strength is stable. [...] | | | n | | | [place], | | | Jackso | | | n | | | vice president of product marketing | | | EP: | | | [...] placement of hardware for posterior fusion from L0thjuzfr L4 with spacer hardware at | | [...] | [facility] | | [address] | | | - BLOOD BANK | [...]
--- OUTSIDE RECORDS SUMMARY | ~2019-09-01 | XMS | Encounter Summary ---
Demographics + + + | Address | [address] | | | [place] [address] | + + + | Home Phone | | + + + | Preferred Language | Unknown | + + + | Marital Status | | + + + | Zoroastrianism Affiliation | Unknown | + + + | Race | Unknown | + + + | Ethnic Group | Unknown | + + + Author + + + | Author | [facility] | | | and [place] | + + + | Organization | [facility] | | | and [place] | + + + | Address | Unknown | + + + | Phone | Unavailable | + + + Support + + + + + | Name | Relationship | Address | Phone | + + + + + | Alma Gramajo | ECON | [address] | | | | | [place] [address] | | + + + + + Care Team Providers + +------+ + | Care Derrick Man Name | Role | Phone | + [...] [address] | [address] [place], [place] | | | | | [place], [place] | [address] | | | | | [address] | | | | | | [phone] | | | +--------+ + + + [...]
--- OUTSIDE RECORDS SUMMARY | ~2019-09-01 | XMS | Encounter Summary ---
Demographics + + + | Address | [address] | | | [place] [address] | + + + | Home Phone [...] + | Organization | [facility] | | | and [place] | + + + | Address | Unknown | + + + | Phone | Unavailable | + + + Support + + + + + | Name | Relationship | Address | Phone | + + + + + | Alma Gramajo | ECON | [address] | | | | | [place] [address] | | + + + + + Care Team Providers + +------+ + | Care Damaged Freight Inspector Name | Role | Phone | + [...] [address] | [address] [place], [place] | radiculopathy, | | | | [place], [place] | [address] | lumbar region | | | | [address] | | (Primary Dx); Lumbar | | | | [phone] | | stenosis; Lumbar | | | [...]
--- OUTSIDE RECORDS SUMMARY | ~2019-09-01 | XMS | Encounter Summary ---
Demographics + + + | Address | [address] | | | [place] [address] | + + + | Home Phone | | + + + | Preferred Language | Unknown | + + + | Marital Status | | + + + | Religion Affiliation | Unknown | + + + | Race | Unknown | + + + | Ethnic Group | Unknown | + + + Author + + + | Author | [facility] | | | and [place] | + + + | Organization | [facility] | | | and [place] | + + + | Address | Unknown | + + + | Phone | Unavailable | + + + Support + + + + + | Name | Relationship | Address | Phone | + + + + + | Alma Gramajo | ECON | [address] | | | | | [place] [address] | | + + + + + Care Team Providers + +------+ + | Care Jack Frame Tender Name | Role | Phone | + +------+ + | Priyanka Sal PA-C | PCP | | + +------+ + Encounter Details +--------+ + + + + | Date | Type | Department | Care Team | Description | +--------+ + + + + | 08/04/ | Episode | [facility] | Afshan Dahl RN | | | 2018 | Changes | SURGERY [address] | | | | | | [place] | | | | | | [address] | | | | | | [phone] | | | +--------+ + + + [...]
--- OUTSIDE RECORDS SUMMARY | ~2019-09-01 | XMS | Encounter Summary ---
Demographics + + + | Address | [address] | | | [place] [address] | + + + | Home Phone | | + + + | Preferred Language | Unknown | + + + | Marital Status | | + + + | Pentecostalism Affiliation | Unknown | + + + | Race | Unknown | + + + | Ethnic Group | Unknown | + + + Author + + + | Author | [facility] | | | and [place] | + + + | Organization | [facility] | | | and [place] | + + + | Address | Unknown | + + + | Phone | Unavailable | + + + Support + + + + + | Name | Relationship | Address | Phone | + + + + + | Alma Gramajo | ECON | [address] | | | | | [place] [address] | | + + + + + Care Team Providers + +------+ + | Care Nuclear Weapons Mechanical Specialist Name | Role | Phone | + +------+ + | Priyanka Sal PA-C | PCP | | + +------+ + Encounter Details +--------+ + + + + | Date | Type | Department | Care Team | Description | +--------+ + + + + | 01/15/ | [facility] | [facility] | Emil Garcia, | | | 2016 | Encounter | MED CTR XRAY [address] | DO [address] | | | | | [place] | [address] [place], [place] [address] | | | | | [place] [address] | [address] | | | | | [phone] | | | | | | | Saleem Mack MD | | | | | | [address] | | | | | | [place] | | | | | | [address] | | | | | | | [...] and lateral views of the chest. | [facility] | | Lungs: No focal airspace [...] [address] | [place] | [phone] | | [facility] | | [address] | | | - IMAGING | | | | + + + + + documented in this encounter Visit Diagnoses Not on filedocumented in this encounter"
--- OUTSIDE RECORDS SUMMARY | ~2019-09-01 | XMS | Encounter Summary ---
Demographics + + + | Address | [address] | | | [place] [address] | + + + | Home Phone | | + + + | Preferred Language | Unknown | + + + | Marital Status | | + + + | Orthodoxy Affiliation | Unknown | + + + | Race | Unknown | + + + | Ethnic Group | Unknown | + + + Author + + + | Author | [facility] | | | and [place] | + + + | Organization | [facility] | | | and [...] | | | | | [place] [address] | | + + + + + Care Team Providers + +------+ + | Care Cellophaner Name | Role | Phone | + [...] nephrolithia | MD [address] | [address] | | | | | sis NEW/ | [address] | [facility] | | | | | LEFT | [place], [place] | [place], [place] | | | | | [place] | [address] | [address] Phone: | | | | | SIS/ SYED | Phone: | [phone] | | | | | Procedures | [phone] | Fax: | | | | | NEW PATIENT | Fax: | [phone] | | | | | | [phone] | | +--------+--------+ + + + + Encounter Details +--------+---------+ + + + | Date | Type | Department | Care Team | Description | +--------+---------+ + + + | 12/16/ | Office | [facility] | Spend[place], S[place] | Nephrolithiasis | | 2018 | Visit | [address] | MD [address] | (Primary Dx); | | | | [place], [place] | [place], [place] | Hypertension, | | | | [address] | [address] | unspecified type; | | | | [phone] | | Erectile | | | | [...] Complaint Patient presents with Nephrolithiasis left HPI [place] Robson Gramajo is a 42 y.o. male [...] Interbody Fusion; Surgeon: Emil Garcia DO; Location: [facility] MAIN OR LUMBAR SPINE SURGERY 2014 x2 [...] UA, POC Negative Negative, 100 mg/dL Specific [place], UA, POC 1.020 1.001 - 1.030 Blood, [...] 1.001 - 1.030 | | | | [place], | | | | | | UA, [...]
--- OUTSIDE RECORDS SUMMARY | ~2019-09-01 | XMS | Encounter Summary ---
Demographics + + + | Address | [address] | | | [place] [address] | + + + | Home Phone | | + + + | Preferred Language | Unknown | + + + | Marital Status | | + + + | Caodaism Affiliation | Unknown | + + + | Race | Unknown | + + + | Ethnic Group | Unknown | + + + Author + + + | Author | [facility] | | | and [place] | + + + | Organization | [facility] | | [...] | | | | | [place] [address] | | + + + + + Care Team Providers + +------+ + | Care Manager Medical Writing Name | Role | Phone | + [...] [address] | | | | | [place] | [place], [place] | | | | | [address] | [address] | | | | | [phone] | | | +--------+ + + + [...]
--- OUTSIDE RECORDS SUMMARY | ~2019-09-01 | XMS | Encounter Summary ---
Demographics + + + | Address | [address] | | | [place] [address] | + + + | Home Phone | | + + + | Preferred Language | Unknown | + + + | Marital Status | | + + + | Roman Catholic Affiliation | Unknown | + + + | Race | Unknown | + + + | Ethnic Group | Unknown | + + + Author + + + | Author | [facility] | | | and Edmundo | + + + | Organization | [facility] | | [...] | | | | | [place] [address] | | + + + + + Care Team Providers + +------+ + | Care Hole Puncher Strap Name | Role | Phone | + +------+ + | Hudson Nair | PCP | | | | | | + +------+ + Encounter Details +--------+ + + + + | Date | Type | Department | Care Team | Description | +--------+ + + + + | 05/24/ | Hospital | [facility] | Adam Cobb | | | 2012 - | Encounter | MED CTR IRF [address] | | | | | [address], | [place] | | | 06/[address]/ | | [place] [address] | [place] [address] | | | 2012 | | [phone] | [phone] | | | | | | | | | | | | Jonn Sexton MD | | | | | | [address] | | | | | | [place], [place] | | | | | | [address] | | | | | | | | | | | | Adán Oneill, | | | | | | [address] | | | | | | [place], [place] | | | | | | [address] | | | | | | | [...] documented as of this encounter Discharge Summaries Adán Oneill MD - 06/23/2013 6:44 [place] [address] Patient Name: ROSARIO OCHOA Provider: Adán Oneill MD Unit #: [id number] Loca tion: 3ER : 1975 ADMISSION DATE: 05/24/2013 DISCHARGE DATE: 06/18/2013 HISTORY OF PRESENT ILLNESS: Mr. Rosario Ochoa is a very pleasant 38-year-old male who was initially seen by Dr. Garcia after he injured his back lifting a heavy dresse r. 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 The patient was having some issue s with bowel and bladder control and was diagnosed with cauda equina syndrome. He was taken to surgery on 05/18/2013. The surgery was a decompression laminectomy and fusion, T11-T12. The patient did have fairly severe bilateral lower extremity weakness following the surger y. It was felt that he would likely need extensive rehabilitation, and was therefore, admit augusto to the inpatient rehabilitation unit on 05/24/2013. HOSPITAL COURSE: The patient had significant difficulty with bed mobility and activities of daily living such as grooming and dressing and was dependent for any mobility. However, he was able to participate with the physical and occupational therapists and over time, he di d regain significant strength in the lower extremities, especially on the left, where at th e time of discharge, he had 5/5 strength with hip flexion, knee extension, plantar flexion and dorsiflexion. On the right, he did continue to have weakness with hip flexion and with dorsiflexion, but knee extension and plantar flexion did come back to almost 5/5 strength. His bowel and bladder function did also significantly improve to that he was independent wi th bowel and bladder and not requiring any bowel medications. Medically, his course was stable with no issues of infection, hypertension or other signifi cant medical issues. At the time of discharge, he was ambulating at least 150 feet using a front-wheeled walker with only contact guard assistance. He was able to do some stairs, hol ding onto a rail and with contact guard assistance. He was independent with transfers and b ed mobility. He did fatigue fairly quickly at times. His standing balance was good. The pat ient will have outpatient physical therapy and occupational therapy. He was also given a eelchair prescription for longer distance mobility and for some household ambulation when h e is fatigued. A ramp was built and a home evaluation was performed prior to discharge, and the patient did very well on a home visit. It was determined that the patient was ready fo r discharge and was discharged to home on 06/18/2013. He will follow up with Dr. Emil tompkins in approximately 1 month and will have repeat x-rays at that time. DISCHARGE MEDICATIONS 1. Diazepam 5 mg orally up to 3 times daily as needed. 2. Acetaminophen 650 mg orally up to every 4 hours as needed. 3. Nortriptyline 20 mg at bedtime. 4. Gabapentin 300 mg twice daily. 5. Oxycodone/acetaminophen 10/325 1 to 2 tablets up to every 6 hours as needed. 6. Colace 100 mg twice daily. It should be noted that the patient was taking the oxycodone and Valium only very intermitt ently, usually at night to help him sleep and to reduce muscle spasms in his right leg. DICTATED BY: Adán Oneill MD Physical Medicine/Rehabilitation JOB #: [id number] EXT JOB #:[id number] <<Signature on File>> Adán Oneill MD07/07/13 1227 < documented in th is encounter Medications at Time of Discharge + [...] | + +--------+ + + + | CHEMISTRY INDEX | Routin | 06/09/2013 | | Results for this | | | e | 6:28 AM | | procedure are in the | | | | PDT | | results section. | + +--------+ + + + | CBC NO DIFFERENTIAL | Routin | 06/09/2013 | | Results for this | | | e | 6:28 AM | | procedure are in the | | | | PDT | | results section. | + +--------+ + + + | COMPREHENSIVE | Routin | 06/09/2013 | | Results for this | | METABOLIC PANEL | e | 6:28 AM | | procedure are in the | | | | PDT | | results section. | + +--------+ + + + | CBC WITH | Routin | 05/27/2013 | | Results for this | | DIFFERENTIAL | e | 6:49 AM | | procedure are in the | | | | PDT | | results section. | + +--------+ + + + | BASIC METABOLIC | Routin | 05/27/2013 | | Results for this | | PANEL | e | 6:49 AM | | procedure are in the | | | | PDT | | results section. | + +--------+ + + + | URINALYSIS, REFLEX | Routin | 05/25/2013 | | Results for this | | MICROSCOPIC AND/OR | e | 7:07 AM | | procedure are in the | | CULTURE | | PDT | | results section. | + +--------+ + + + | CBC WITH | Routin | 05/25/2013 | | Results for this | | DIFFERENTIAL | e | 6:34 AM | | procedure are in the | | | | PDT | | results section. | + +--------+ + + + | BASIC METABOLIC | Routin | 05/25/2013 | | Results for this | | PANEL | e | 6:34 AM | | procedure are in the | | | | PDT | | results section. | + +--------+ + + + documented in this encounter Results Chemistry Index (06/09/2013 6:28 AM PDT) + + + + + + | Component | Value | Ref Range | Performed | Pathologist | | | | | At | Signature | + + + + + + | HEMOLYSIS | 1+ (H)Comment: AMYLASE, | None | [facility] | | | INDEX | AMMONIA, CPK, IRON, K+, | | [facility] | | | | LDH, SGOT/AST, SGPT/ALT, | | MEDICAL | | | | and TOTAL BILIRUBIN | | CENTER - | | | | may be adversely | | LABORATORY | | | | affected by 1+ | | | | | | hemolysis. | | | | + + + + + + | LIPEMIA | 2+Comment: AMMONIA, | | [facility] | | | INDEX | LACTIC ACID, TOTAL | | [facility] | | | | PROTEIN and MAGNESIUM | | MEDICAL | | | | may be adversely | | CENTER - | | | | affected by 2+ lipemia. | | LABORATORY | | | | | | | | + + + + + + | ICTERIC | 1+Comment: LACTIC ACID | | [facility] | | | INDEX | and TRIGLYCERIDES may be | | [facility] | | | | adversely affected by | | MEDICAL | | | | 1+ bilirubin. | | CENTER - | | | [...] [address] | [place] | [phone] | | [facility] | | [address] | | | - LABORATORY | | | | + + + + + | [facility] | [address] | [place] | | | [facility] | | [address] | | | - LABORATORY | | | | + + + + + Comprehensive Metabolic Panel (06/09/2013 6:28 AM PDT) + + + + + + | Component | Value | Ref Range | Performed | Pathologist | | | | | At | Signature | + + + + + + | Glucose | 96 | 70 - 109 mg/dL | [facility] | | | | | | [facility] | | | | | | MEDICAL | | | | | | CENTER - | | | | | | LABORATORY | | + + + + + + | Calcium | 9.2 | 8.3 - 10.5 | [facility] | | | | | mg/dL | [facility] | | | | | | MEDICAL | | | | | | CENTER - | | | | | | LABORATORY | | + + + + + + | Alkaline | 52 | 40 - 110 IU/L | [facility] | | | Phosphatase | | | [facility] | | | | | | MEDICAL | | | | | | CENTER - | | | | | | LABORATORY | | + + + + + + | AST | 24 | 10 - 42 IU/L | [facility] | | | | | | [facility] | | | | | | MEDICAL | | | | | | CENTER - | | | | | | LABORATORY | | + + + + + + | ALT | 49 (H) | 6 - 45 IU/L | [facility] | | | | | | [facility] | | | | | | MEDICAL | | | | | | CENTER - | | | | | | LABORATORY | | + + + + + + | Bilirubin | 0.5 | 0.2 - 1.0 mg/dL | [facility] | | | Total | | | [facility] | | | | | | MEDICAL | | | | | | CENTER - | | | | | | LABORATORY | | + + + + + + | Total | 5.6 (L) | 6.0 - 7.8 gm/dL | [facility] | | | Protein | | | [facility] | | | | | | MEDICAL | | | | | | CENTER - | | | | | | LABORATORY | | + + + + + + | Albumin | 3.3 | 3.2 - 5.0 gm/dL | [facility] | | | | | | [facility] | | | | | | MEDICAL | | | | | | CENTER - | | | | | | LABORATORY | | + + + + + + | BUN | 13 | 7 - 18 mg/dL | [facility] | | | | | | [facility] | | | | | | MEDICAL | | | | | | CENTER - | | | | | | LABORATORY | | + + + + + + | Creatinine | 0.69 | 0.60 - 1.30 | [facility] | | | | | mg/dL | [...] + + + + | BUN/Creatin | 18.8 | 12 - 20 | [facility] | [...] K | 3.8 | 3.5 - 5.1 mEq/l | [facility] [...] + + + | Anion Gap | 12.8 | 6.0 - 17.0 | [facility] | [...] + | [facility] | [address] | [place] | [phone] | | [facility] | | [address] | | | - LABORATORY | | | | + + + + + | [facility] | [address] | [place] | | | [facility] | | [address] | | | - LABORATORY | | | | + + + + + CBC no Differential (06/09/2013 6:28 AM PDT) + + + + + + | Component | Value | Ref Range | Performed | Pathologist | | | | | At | Signature | + + + + + + | WBC | 8.1 | 4.0 - 11.0 K/uL | [facility] | | | | | | [facility] | | | | | | MEDICAL | | | | | | CENTER - | | | | | | LABORATORY | | + + + + + + | RBC | 4.33 | 4.30 - 5.70 | [facility] | | | | | M/uL | [facility] | | | | | | MEDICAL | | | | | | CENTER - | | | | | | LABORATORY | | + + + + + + | Hemoglobin | 13.9 | 13.5 - 18.0 | [facility] | | | | | gm/dL | [facility] | | | | | | MEDICAL | | | | | | CENTER - | | | | | | LABORATORY | | + + + + + + | Hematocrit | 39.8 (L) | 40.0 - 51.0 % | [facility] | | | | | | [facility] | | | | | | MEDICAL | | | | | | CENTER - | | | | | | LABORATORY | | + + + + + + | MCV | 91.8 | 83.0 - 101.0 fL | [facility] | | | | | | [facility] | | | | | | MEDICAL | | | | | | CENTER - | | | | | | LABORATORY | | + + + + + + | MCH | 32.2 | 28.0 - 35.0 pg | [facility] | | | | | | [facility] | | | | | | MEDICAL | | | | | | CENTER - | | | | | | LABORATORY | | + + + + + + | MCHC | 35.1 | 32.0 - 36.0 | [facility] | [...] + + + + | Platelet | 153 | 140 - 440 K/uL | [facility] | | | Count | | | [facility] | | [...] [address] | [place] | [phone] | | [facility] | | [address] | | | - LABORATORY | | | | + + + + + | [facility] | [address] | [place] | | | [facility] | | [address] | | | - LABORATORY | | | | + + + + + CBC with Differential (05/27/2013 6:49 AM PDT) + + + + + + | Component | Value | Ref Range | Performed | Pathologist | | | | | At | Signature | + + + + + + | MANUAL | NO | | [facility] | | | DIFFERENTIA | | | [facility] | | | L ? | | | MEDICAL | | | | | | CENTER - | | | | | | LABORATORY | | + + + + + + | WBC | 17.9 (H) | 4.0 - 11.0 K/uL | [facility] | | | | | | [facility] | | | | | | MEDICAL | | | | | | CENTER - | | | | | | LABORATORY | | + + + + + + | RBC | 4.72 | 4.30 - 5.70 | [facility] | | | | | M/uL | [facility] | | | | | | MEDICAL | | | | | | CENTER - | | | | | | LABORATORY | | + + + + + + | Hemoglobin | 14.7 (A) | 13.5 - 18.0 | [facility] | | | | | gm/dL | [facility] | | | | | | MEDICAL | | | | | | CENTER - | | | | | | LABORATORY | | + + + + + + | Hematocrit | 43.3 | 40.0 - 51.0 % | [facility] | | | | | | [facility] | | | | | | MEDICAL | | | | | | CENTER - | | | | | | LABORATORY | | + + + + + + | MCV | 91.8 | 83.0 - 101.0 fL | [facility] [...] + + + + | RDW-CV | 14.7 | <15.0 % | [facility] | | | | | | [facility] | | | | | | MEDICAL | | | | | | CENTER - | | | | | | LABORATORY | | + + + + + + | Platelet | 184 | 140 - 440 K/uL | [facility] | | | Count | | | [facility] | | | | | | MEDICAL | | | | | | CENTER - | | | | | | LABORATORY | | + + + + + + | % | 87.3 (H) | 45 - 75 % | [facility] | | | Neutrophils | | | [facility] | | | | | | MEDICAL | | | | | | CENTER - | | | | | | LABORATORY | | + + + + + + | % | 7.5 (L) | 20 - 45 % | [facility] | | | Lymphocytes | | | [facility] | | | | | | MEDICAL | | | | | | CENTER - | | | | | | LABORATORY | | + + + + + + | % Monocytes | 4.7 | 4 - 12 % | [facility] [...] + | % Basophils | 0.4 | 0 - 1 % | [facility] | | | | | | [facility] | | | | | | MEDICAL | | | | | | CENTER - | | | | | | LABORATORY | | + + + + + + | Absolute | 15.6 (H) | 1.5 - 6.6 K/uL | [facility] | | | Neutrophils | | | [facility] | | | | | | MEDICAL | | | | | | CENTER - | | | | | | LABORATORY | | + + + + + + | Absolute | 1.3 | 0.6 - 3.2 K/uL | [facility] [...] + | [facility] | [address] | [place] | [phone] | | [facility] | | [address] | | | - LABORATORY | | | | + + + + + | [facility] | [address] | [place], [place] | | | [facility] | | [address] | | | - LABORATORY | | | | + + + + + Basic Metabolic Panel (05/27/2013 6:49 AM PDT) + + + + + [...] | | | | mg/dL | [facility] | | | | | | MEDICAL | | | | | | CENTER - | | | | | | LABORATORY | | + + + + + + | BUN | 22 (H) | 7 - 18 mg/dL | [facility] | | | | | | [facility] | | | | | | MEDICAL | | | | | | CENTER - | | | | | | LABORATORY | | + + + + + + | Creatinine | 0.86 | 0.60 - 1.30 | [facility] | [...] | GFR | -Americans, | | [facility] | | | | please multiply [...] + + + + | BUN/Creatin | 25.6 (H) | 12 - 20 | [facility] | | | ine Ratio | | | . [facility] | | | | | | [...] + + + + | K | 4.4 | 3.5 - 5.1 mEq/l | [facility] [...] + + + | Anion Gap | 12.4 | 6.0 - 17.0 | [facility] | [...] + + | Performing | Address | City/State[facility] | Phone Number | | Organization | | | | + + + + + | [facility] | [address] | [place] | [phone] | | [facility] | | [address] | | | - LABORATORY | | | | + + + + + | [facility] | [address] | [place] | | | [facility] | | [address] | | | - LABORATORY | | | | + + + + + Urinalysis, Reflex Microscopic and/or Culture (05/25/2013 7:07 AM PDT) + + + + + + | Component | Value | Ref Range | Performed | Pathologist | | | | | At | Signature | + + + + + + | COLLECTION | CL.CATCH | | [facility] | | | [facility] | | | [facility] | | | | | | MEDICAL | | | | | | CENTER - | | | | | | LABORATORY | | + + + + + + | Color | YELLOW | | [facility] | | | | | | [facility] | | | | | | MEDICAL | | | | | | CENTER - | | | | | | LABORATORY | | + + + + + + | Clarity | CLEAR | | [facility] | | | | | | [facility] | | | | | | MEDICAL | | | | | | CENTER - | | | | | | LABORATORY | | + + + + + + | Glucose, | NEGATIVE | NEGATIVE mg/dL | [facility] | | | Urine | | | [facility] | | | | | | MEDICAL | | | | | | CENTER - | | | | | | LABORATORY | | + + + + + + | Bilirubin, | NEGATIVE | NEGATIVE | [facility] | | | Urine | | | [facility] | | | | | | MEDICAL | | | | | | CENTER - | | | | | | LABORATORY | | + + + + + + | Ketones, | NEGATIVE | NEGATIVE | [facility] | | | Urine | | | [facility] | | | | | | MEDICAL | | | | | | CENTER - | | | | | | LABORATORY | | + + + + + + | Specific | 1.020 | 1.001 - 1.030 | [facility] | | | [place] | | | [facility] | | | | | | MEDICAL | | | | | | CENTER - | | | | | | LABORATORY | | + + + + + + | Blood, | NEGATIVE | NEGATIVE | [facility] | | | Urine | | | [facility] | | | | | | MEDICAL | | | | | | CENTER - | | | | | | LABORATORY | | + + + + + + | pH, Urine | 6.0 | 5.0 - 8.0 | [facility] | | | | | | [facility] | | | | | | MEDICAL | | | | | | CENTER - | | | | | | LABORATORY | | + + + + + + | Protein, | NEGATIVE | NEGATIVE mg/dL | [facility] | | | Urine | | | [facility] | | | | | | MEDICAL | | | | | | CENTER - | | | | | | LABORATORY | | + + + + + + | Urobilinoge | NORMAL | NORMAL EU/dL | [facility] | | | n, Urine | | | [facility] | | | | | | MEDICAL | | | | | | CENTER - | | | | | | LABORATORY | | + + + + + + | Nitrite, | NEGATIVE | NEGATIVE | [facility] | | | Urine | | | [facility] | | | | | | MEDICAL | | | | | | CENTER - | | | | | | LABORATORY | | + + + + + + | Leukocyte | NEGATIVE | NEGATIVE | [facility] | | | Esterase, | | | [facility] | | | Urine | | | MEDICAL | | | | | | CENTER - | | | | | | LABORATORY | | + + + + + + | MICROSCOPIC | NO | | [facility] | | | ? | | | [facility] | | [...] + | [facility] | [address] | [place] | [phone] | | [facility] | | [address] | | | - LABORATORY | | | | + + + + + | [facility] | [address] | [place], [place] | | | [facility] | | [address] | | | - LABORATORY | | | | + + + + + CBC with Differential (05/25/2013 6:34 AM PDT) + + + + + [...] + + + + | WBC | 16.4 (H) | 4.0 - 11.0 K/uL | [facility] | | | | | | [facility] | | | | | | MEDICAL | | | | | | CENTER - | | | | | | LABORATORY | | + + + + + + | RBC | 4.57 | 4.30 - 5.70 | [facility] | [...] + + + + | MCV | 91.0 | 83.0 - 101.0 fL | [facility] [...] + + + + | RDW-CV | 14.5 | <15.0 % | [facility] | | | | | | [facility] | | | | | | MEDICAL | | | | | | CENTER - | | | | | | LABORATORY | | + + + + + + | Platelet | 179 | 140 - 440 K/uL | [facility] | | | Count | | | [facility] | | | | | | MEDICAL | | | | | | CENTER - | | | | | | LABORATORY | | + + + + + + | % | 73.1 | 45 - 75 % | [facility] | | | Neutrophils | | | [facility] | | | | | | MEDICAL | | | | | | CENTER - | | | | | | LABORATORY | | + + + + + + | % | 19.6 (L) | 20 - 45 % | [facility] | | | Lymphocytes | | | [facility] | | | | | | MEDICAL | | | | | | CENTER - | | | | | | LABORATORY | | + + + + + + | % Monocytes | 6.5 | 4 - 12 % | [facility] | | | | | | [facility] | | | | | | MEDICAL | | | | | | CENTER - | | | | | | LABORATORY | | + + + + + + | % | 0.7 | 0 - 5 % | [facility] | | | Eosinophils | | | [facility] | | | | | | MEDICAL | | | | | | CENTER - | | | | | | LABORATORY | | + + + + + + | % Basophils | 0.1 | 0 - 1 % | [facility] | | | | | | [facility] | | | | | | MEDICAL | | | | | | CENTER - | | | | | | LABORATORY | | + + + + + + | Absolute | 12.0 (H) | 1.5 - 6.6 K/uL | [facility] | | | Neutrophils | | | [facility] | | | | | | MEDICAL | | | | | | CENTER - | | | | | | LABORATORY | | + + + + + + | Absolute | 3.2 | 0.6 - 3.2 K/uL | [facility] | | | Lymphocytes | | | [facility] | | | | | | MEDICAL | | | | | | CENTER - | | | | | | LABORATORY | | + + + + + + | Absolute | 1.1 (H) | 0.0 - 1.0 K/uL | [facility] [...] 0.0 | 0.0 - 0.1 K/uL | [facility] | | | Basophils | | | [facility] | | [...] + | [facility] | [address] | [place] | [phone] | | [facility] | | [address] | | | - LABORATORY | | | | + + + + + | [facility] | [address] | [place] | | | [facility] | | [address] | | | - LABORATORY | | | | + + + + + Basic Metabolic Panel (05/25/2013 6:34 AM PDT) + + + + + + | Component | Value | Ref Range | Performed | Pathologist | | | | | At | Signature | + + + + + + | Glucose | 90 | 70 - 109 mg/dL | [facility] [...] + + + + | BUN | 21 (H) | 7 - 18 mg/dL | [facility] | | | | | | [facility] | | | | | | MEDICAL | | | | | | CENTER - | | | | | | LABORATORY | | + + + + + + | Creatinine | 0.88 | 0.60 - 1.30 | [facility] | [...] + + + + | BUN/Creatin | 23.9 (H) | 12 - 20 | [facility] [...] + + + + | Cl | 99 | 98 - 109 mEq/l | [facility] | | | | | | [facility] | | | | | | MEDICAL | | | | | | CENTER - | | | | | | LABORATORY | | + + + + + + | CO2 | 31 | 24 - 31 mEq/L | [facility] | [address] | [place] | [phone] | | [facility] | | [address] | | | - LABORATORY | | | | + + + + + | [facility] | [address] | [place], [place] | | | [facility] | | [address] | | | - LABORATORY | | | | + + + + + documented in this encounter Visit Diagnoses Not on filedocumented in this encounter"
--- OUTSIDE RECORDS SUMMARY | ~2019-09-01 | XMS | Encounter Summary ---
Demographics + + + | Address | [address] | | | [place] [address] | + + + | Home Phone [...] | Organization | [facility] | | | and [...] | | | | | [place] [address] | | + + + + + Care Team Providers + +------+ + | Care Drafter (Cad) Electrical Name | Role | Phone | + [...] [address] | | | | | [place] OFFICE | [address] | [place], [place] | | | | | CONSULTATION | [place], | [address] Phone: | | | | | NEW/ESTAB | [place] [address] | [phone] | | | | | PATIENT 60 | Phone: | Fax: | | | | | MIN | [phone] | [phone] | | | | | | Fax: | | | | | | | [phone] | | +--------+--------+ + + + + Encounter Details +--------+---------+ + + + | Date | Type | Department | Care Team | Description | +--------+---------+ + + + | 07/26/ | Office | [facility] | Emil Garcia, | S/P lumbar fusion | | 2013 | Visit | NEUROSURGERY [address] | DO [address] | (Primary Dx) | | | | [address] | [address] [place], [place] | | | | | [place], [place] | [address] | | | | | [address] | | | | | | [phone] | | | +--------+---------+ + + + [...] m the original. Emil Garcia DO [address] [facility], [address] [place] [address] FAX: NEUROSURGERY SURGICAL FOLLOW-UP CHIEF COMPLAINT: Chief [...]
--- OUTSIDE RECORDS SUMMARY | ~2019-09-01 | XMS | Encounter Summary ---
Demographics + + + | Address | [address] | | | [place] [address] | + + + | Home Phone [...] | Organization | [facility] | | | and [...] | | | | | [place] [address] | | + + + + + Care Team Providers + +------+ + | Care Director Of Database Marketing Name | Role | Phone | + [...] | | | | | | | SC REPAIR | | | | | | [...] + + + + | 08/12/ | Anesthesia | RILEY MARIO IVANNA | Mason Reynaga | | | 2018 | Event | [facility] | MD Negr[address] | | | | | [address] | [address] | | | | | [place] | [place] [address] | | | | | [address] | [phone] | | | | | [phone] | | | | | | | Mark Munguia, | | | | | | [address] | | | | | | [place] | | | | | | [address] | | | | | | | | +--------+ + + + + Anesthesia Record + + + + + | Procedure Name | Responsible | Anesthesia Start | Anesthesia Stop Time | | | Anesthesiologist | Time | | + + + + + | RIGHT INGUINAL | Mason Barker | 08/12/18 1224 | 08/12/18 1432 | | HERNIA REPAIR WITH | MD Juhi | | | | MESH (Right Abdomen) | | | | + + + + + +----+---+ + + | Da | T | Event | Comment | | te | i | | | | | m | | | | | e | | | +----+---+ + + | 12 | 1 | | | | /1 | 2 | | | | 2/ | 1 | | | | 20 | 5 | | | | 18 | | | | +----+---+ + + | | 1 | An Checkout | Pre-use anesthesia machine/equipment checkout. | | | 2 | | | | | 1 | | | | | 6 | | | +----+---+ + + | | 1 | Antibiotic | | | | 2 | Given | | | | 2 | | | | | 0 | | | +----+---+ + + | | 1 | An Start | Reassessment prior to anesthesia induction/procedure. | | | 2 | | | | | 2 | | | | | 4 | | | +----+---+ + + | | 1 | Preoxygenat | | | | 2 | ed | | | | 2 | | | | | 5 | | | +----+---+ + + | | 1 | An | | | | 2 | Induction | | | | 3 | | | | | 0 | | | +----+---+ + + | | 1 | An | | | | 2 | Intubation | | | | 3 | | | | | 2 | | | +----+---+ + + | | 1 | an john now | | | | 2 | | | | | 3 | | | | | 5 | | | +----+---+ + + | | 1 | AN Bite | | | | 2 | Block | | | | 3 | | | | | 5 | | | +----+---+ + + | | 1 | Pre-Procedu | | | | 2 | ral Timeout | | | | 4 | Completed | | | | 0 | | | +----+---+ + + | | 1 | Aneta | | | | 2 | 43-degrees | | | | 4 | | | | | 1 | | | +----+---+ + + | | 1 | First | | | | 2 | Inc/Proc St | | | | 4 | | | | | 6 | | | +----+---+ + + | | 1 | Quick Note | Surgeon reporting R leg movement with electrocautery. Additional | | | 3 | | muscle relaxant given and anesthesia deepened but patient already | | | 0 | | near 1 MAC of inhaled agent plus IV adjuncts already used. | | | 4 | | | +----+---+ + + | | 1 | Aneta off | | | | 4 | | | | | 2 | | | | | 1 | | | +----+---+ + + | | 1 | AN No | TOF 4/4 with sustained tetanus. | | | 4 | Residual | | | | 2 | NMB | | | | 2 | | | +----+---+ + + | | 1 | Breathing | | | | 4 | Spontaneous | | | | 2 | ly | | | | 2 | | | +----+---+ + + | | 1 | Oropharynx | | | | 4 | Suctioned | | | | 2 | | | | | 2 | | | +----+---+ + + | | 1 | Moving | | | | 4 | Purposefull | | | | 2 | y | | | | 2 | | | +----+---+ + + | | 1 | Extubated | | | | 4 | Awake | | | | 2 | | | | | 2 | | | +----+---+ + + | | 1 | an stop | | | | 4 | data | | | | 2 | | | | | 4 | | | +----+---+ + + | | 1 | An Stop | Patient handed off to recovery nurse. | | | 3 | | | | | 2 | | | +----+---+ + + +------+ | Meds | +------+ + + + | Name | Total | + + + | fentaNYL | 100 mcg | + + + | lidocaine 2% | 100 mg | + + + | propofol (DIPRIVAN) injection | 200 mg | | (bolus) (20 mL) | | + + + | propofol | 332.71 mg | + + + | succinylcholine | 150 mg | + + + | rocuronium | 50 mg | + + + | Phenylephrine 100mcg/mL SYRINGE | 300 mcg | + + + | dexamethasone | 10 mg | + + + | ondansetron | 4 mg | + + + | sugammadex (BRIDION) injection (2 | 200 mg | | mL vial) | | + + + | dexmedetomidine (Bolus) | 15 mcg | + + + | ropivacaine 0.5% | 20 mL | + + + | glycopyrrolate (ROBINUL) | 0.2 mg | | injection (5 mL vial) | | + + + | cefOXitin (MEFOXIN) 2 g in sodium | 2 g | | chloride 0.9% 50 mL IVPB | | + + + | lactated ringers (LR) infusion | 1,100 mL | + + + [...] +--------+ + + + | Periph | 08/12/18; 1214; Left; Hand; | 08/12/18 1214 by | | | eral | [id number] catheter system; | Cha Davies RN | | | IV | 20 gauge; distraction, | | | | | intradermal injection, tolerated | | | | | well | | | +--------+ + + + | Airway | Placement Date: 08/12/18; | 08/12/18 1232 by | 08/12/18 1422 by | | | Placement Time: 1232 (created via | Mason Barker | Mason Barker | | | procedure documentation); Mask | MD Juhi | MD Juhi | | | Ventilation: Dif req 2 (Curtis and | | | | | large face); Airway Grade: 1; | | | | | Successful Technique: video | | | | | scope; Laryngoscope Blade Size: | | | | | 3; Attempts: 1; Airway Type: | | | | | endotracheal; Size: 7; Airway | | | | | Tube Secured At: 23; Trauma: | | | | | none; Other Equipment: stylette; | | | | | Placement Check: exhaled CO2 | | | | | detection device, bilateral chest | | | | | rise, breath sounds equal | | | | | bilaterally; Removal Date: | | | | | 08/12/18; Removal Time: 1422; | | | | | Additional Comments: [facility] | | | | | intubation. Soft bite block | | | | | placed after examining airway for | | | | | signs of trauma. Atraumatic | | | | | airway manipulation. | | | +--------+ + + + | Read | 08/12/18; 1340; Right; groin; | 08/12/18 1340 by | 11/24/18 1342 by | | only - | 11/24/18 (Completed/Removed by | Shannon Flannery RN | User Epic | | | Utility); 1342 (Completed/Removed | | | | Incisi | by Utility) | | | | on | | [...] + +--------+ + + + | ANE NERVE BLOCK | Routin | 08/12/2018 | | Results for this | | CATHETER NOTE | e | 12:49 PM | | procedure are in the | | | | PST | | results section. | + +--------+ + + + | ANE AIRWAY NOTE | Routin | 08/12/2018 | | Results for this | | | e | 12:48 PM | | procedure are in the | | | | PST | | results section. | + +--------+ + + + documented in this encounter Results Anesthesia Perineural Note (08/12/2018 12:49 PM PST) + + + | Narrative | Performed At | + + + | Mason Reynaga MD 08/12/2018 12:51 Perineural | | | Procedure Note Nerve block: transverse abdominis plane | | | Laterality: right Continuous block with catheter: No Provider | | | requested procedure: Dr. Cris Gutierrez Indication: postoperative | | | analgesia Preprocedure check: patient identified, procedure and | | | rescue equipment checked, preevaluation including airway assessment | | | complete, risks/benefits discussed, consent obtained, timeout | | | performed, reassessment prior to procedure and monitors applied | | | Patient position: supine Preparation: chlorhexidine/isopropyl alcohol | | | Introducer used: no Technique: ultrasound Radiology image stored | | | in patient's chart: ultrasound Needle: echogenic, stimulating and | | | insulated Needle size: 21 g Needle length: 4 in Medication | | | administered through: needle and incremental injection Negative | | | findings: no blood aspirated Total volume of local anesthetic | | | solution administered: 20 mL Attempts: 1 Ease of procedure: easy | | | Comments: Comments: Patient under general anesthesia. RIGHT TAP | | | block. Chloraprep to left lateral abdominal wall after ultrasound | | | used to identify external oblique, internal oblique , and | | | transversus abdominus muscles at the left mid axillary line at the | | | level of the umbilicus. Under continuous ultrasound guidance the | | | Stimuplex needle was advanced to the plane between the internal | | | oblique and transversus abdominus with the needle tip just deep to | | | the fascial plane. 20ml of local anesthetic was injected in 5 ml | | | increments in the transversus abdominus plane with intermittent | | | negative aspiration. No evidence of intravascular injection. | | | Ultrasound image placed in chart. Please see anesthesia | | | record or flowsheet for vital sign documentation and see anesthesia | | | record or MAR for all medication documentation. Performing | | | provider: MASON REYNAGA Electronically Signed by: | | | MD Glendy Arguetag date/time: | | | 08/12/2018 12:49 | | + + + + + | Procedure Note | + + | Mason Reynaga MD - 08/12/2018 12:49 PM PST Perineural Procedure NoteNerve | | block: transverse abdominis planeLaterality: rightContinuous block with catheter: | | Linda requested procedure: Dr. Lynch CaseyIndication: postoperative | | analgesiaPreprocedure check: patient identified, procedure and rescue equipment checked, | | preevaluation including airway assessment complete, risks/benefits discussed, consent | | obtained, timeout performed, reassessment prior to procedure and monitors appliedPatient | | position: supinePreparation: chlorhexidine/isopropyl alcoholIntroducer used: | | noTechnique: ultrasoundRadiology image stored in patient's chart: ultrasoundNeedle: | | echogenic, stimulating and insulatedNeedle size: 21 gNeedle length: 4 inMedication | | administered through: needle and incremental injectionNegative findings: no blood | | aspiratedTotal volume of local anesthetic solution administered: 20 mLAttempts: 1Ease of | | procedure: easyComments: Comments: Patient under general anesthesia. RIGHT TAP block. | | Chloraprep to left lateral abdominal wall after ultrasound used to identify external | | oblique, internal oblique , and transversus abdominus muscles at the left mid axillary | | line at the level of the umbilicus. Under continuous ultrasound guidance the Stimuplex | | needle was advanced to the plane between the internal oblique and transversus abdominus | | with the needle tip just deep to the fascial plane. 20ml of local anesthetic was | | injected in 5 ml increments in the transversus abdominus plane with intermittent | | negative aspiration. No evidence of intravascular injection. Ultrasound image placed | | in chart.Please see anesthesia record or flowsheet for vital sign documentation and see | | anesthesia record or MAR for all medication documentation.Performing provider: JUHI | | MASON Santanaectronically Signed by: MD Santo Argueta | | date/time: 08/12/2018 12:49 | | | |RIGHT TAP block. Chloraprep to left lateral abdominal wall after ultrasound used to identif y external oblique, internal oblique , and transversus abdominus muscles at the left mid axi llary line at the level | |of the umbilicus. Under continuous ultrasound guidance the Stimuplex needle was advanced to the plane between the internal oblique and transversus abdominus with the needle tip just deep to the fascial | |plane. 20ml of local anesthetic was injected in 5 ml increments in the transversus abdomin us plane with intermittent negative aspiration. | | | |No evidence of intravascular injection. Ultrasound image placed in chart. | | | | | | | | | |Please see anesthesia record or flowsheet for vital sign documentation and see anesthesia r ecord or MAR for all medication documentation. | | | | | |Performing provider: MASON REYNAGA | | | | | | | |Electronically Signed by: MD Santo Argueta date/time: 8 12:49 | + + Anesthesia Airway Note (08/12/2018 12:48 PM PST) + + + | Narrative | Performed At | + + + | Mason Reynaga MD 08/12/2018 12:49 Anesthesia Airway | | | Placement 08/12/2018 12:32 Preprocedure check: patient | | | identified, oxygen, airway assessed, suction, airway equipment | | | checked and patient reassessment prior to induction Mask ventilation: | | | difficult requiring 2 hands (Curtis and large face) Successful | | | technique: videoscope Laryngoscope blade size: 3 Airway grade: 1 | | | (Full view of glottis) Other equipment: stylette Attempts: 1 Airway | | | type: endotracheal Size: 7 Cuffed: cuffed Route, reference point: | | | right side of mouth Tube depth: 23 cm Tube secured with: adhesive | | | tape Trauma: none Tube placement verification: bilateral chest rise, | | | equal bilateral breath sounds and carbon dioxide detection | | | Performing provider: MASON REYNAGA Comments: EZ Gloria | | | intubation. Soft bite block placed after examining airway for signs | | | of trauma. Atraumatic airway manipulation. Electronically | | | Signed by: Mason Reynaga MD | | | ESig date/time: 08/12/2018 12:48 | | + + + + + | Procedure Note | + + | Mason Reynaga MD - 08/12/2018 12:48 PM PST Anesthesia Airway | | Ihqffshiz31/12/2018 12:32Preprocedure check: patient identified, oxygen, airway | | assessed, suction, airway equipment checked and patient reassessment prior to | | inductionMask ventilation: difficult requiring 2 hands (Curtis and large face)Successful | | technique: videoscopeLaryngoscope blade size: 3 Airway grade: 1 (Full view of | | glottis)Other equipment: styletteAttempts: 1Airway type: endotrachealSize: 7Cuffed: | | cuffedRoute, reference point: right side of mouthTube depth: 23 cmTube secured with: | | adhesive tapeTrauma: noneTube placement verification: bilateral chest rise, equal | | bilateral breath sounds and carbon dioxide detectionPerforming provider: MASON REYNAGA | | NEGRITOComments: EZ Gloria intubation.Soft bite block placed after examining airway for | | signs of trauma. Atraumatic airway manipulation.Electronically Signed by: Mason Brown | | MD Glendy Reynaga date/time: 08/12/2018 12:48 | |Cuffed: cuffed | |Route, reference point: right side of mouth | |Tube depth: 23 cm | |Tube secured with: adhesive tape | |Trauma: none | |Tube placement verification: bilateral chest rise, equal bilateral breath sounds and carbon dioxide detection | |Performing provider: MASON REYNAGA | | | |Comments: EZ Gloria intubation. | |Soft bite block placed after examining airway for signs of trauma. | |Atraumatic airway manipulation. | | | | | |Electronically Signed by: Mason Reynaga MD ESi date/time: 12:48 | | | + + documented in this encounter Visit Diagnoses Not on filedocumented in this encounter Administered Medications + +---------+ +------+------+------+ | Medication Order | MAR | Action | Dose | Rate | Site | | | Action | Date | | | | + +---------+ +------+------+------+ | cefOXitin (MEFOXIN) 2 g in | New Bag | 08/12/20 | 2 g | | | | sodium chloride 0.9% 50 mL IVPB | | 18 12:20 | | | | | 2 g, Intravenous, Administer over | | PM PST | | | | | 30 Minutes, Prior to Incision, | | | | | | | Starting Fri08/12/18 at 1145, | | | | | | | For 1 dose, administer within 1 | | | | | | | hour of incision Activate system | | | | | | | and mix before use., Pre-op, | | | | | | | Indications: Surgical Prophylaxis | | | | | | + +---------+ +------+------+------+ +---+---+ | | | +---+---+ + +-------+ +-------+---+---+ | dexamethasone (PF) 10 mg/mL | Given | 08/12/20 | 10 mg | | | | injection Intravenous, PRN, | | 18 12:48 | | | | | Starting Fri08/12/18 at 1248, | | PM PST | | | | | Anesthesia Intra-op | | | | | | + +-------+ +-------+---+---+ +---+---+ | | | +---+---+ + +-------+ +--------+---+---+ | dexmedetomidine (PRECEDEX) in | Given | 08/12/20 | 15 mcg | | | | sodium chloride bolus infusion | | 18 12:36 | | | | | Intravenous, PRN, Starting Wed | | PM PST | | | | | 08/12/18 at 1236, Anesthesia | | | | | | | Intra-op | | | | | | + +-------+ +--------+---+---+ +---+---+ | | | +---+---+ + +-------+ +--------+---+---+ | fentaNYL (PF) injection | Given | 08/12/20 | 50 mcg | | | | Intravenous, PRN, Pain, Starting | | 18 12:28 | | | | | 08/12/18 at 1227, Anesthesia | | PM PST | | | | | Intra-op | | | | | | + +-------+ +--------+---+---+ +-------+ +--------+---+---+ | Given | 08/12/20 | 50 mcg | | | | | 18 12:27 | | | | | | PM PST | | | | +-------+ +--------+---+---+ +---+---+ | | | +---+---+ + +-------+ +--------+---+---+ | glycopyrrolate (RADHA) | Given | 08/12/20 | 0.2 mg | | | | injection Intravenous, PRN, | | 18 12:40 | | | | | Secretions, Starting 08/12/18 | | PM PST | | | | | at 1240, Anesthesia Intra-op | | | | | | + +-------+ +--------+---+---+ +---+---+ | | | +---+---+ + +---------+ +--------+-------+---+ | lactated ringers (LR) [...] | | | | +---------+ +---+ +---+ +---+---+ | | | +---+---+ + +-------+ +--------+---+---+ | lidocaine (PF) 2% injection | Given | 08/12/20 | 100 mg | | | | Intravenous, PRN, Starting Fri | | 18 12:30 | | | | | 18 at 1230, Anesthesia | | PM PST | | | | | Intra-op | | | | | | + +-------+ +--------+---+---+ +---+---+ | | | +---+---+ + +-------+ +------+---+---+ | ondansetron (ZOFRAN) injection | Given | 08/12/20 | 4 mg | | | | Intravenous, PRN, Nausea, | | 18 12:48 | | | | | Vomiting, Starting 08/12/18 | | PM PST | | | | | at 1248, Anesthesia Intra-op | | | | | | + +-------+ +------+---+---+ +---+---+ | | | +---+---+ + +-------+ +---------+---+---+ | phenylephrine (OPAL-SYNEPHRINE) | Given | 08/12/20 | 100 mcg | | | | 100 mcg/mL injection | | 18 1:43 | | | | | Intravenous, PRN, Starting Wed | | PM PST | | | | | 08/12/18 at 1330, Anesthesia | | | | | | | Intra-op | | | | | | + +-------+ +---------+---+---+ +-------+ +---------+---+---+ | Given | 20 | 100 mcg | | | | | 18 1:38 | | | | | | PM PST | | | | +-------+ +---------+---+---+ | Given | 08/12/20 | 100 mcg | | | | | 18 1:30 | | | | | | PM PST | | | | +-------+ +---------+---+---+ +---+---+ | | | +---+---+ + +-------+ +--------+---+---+ | propofol (DIPRIVAN) injection | Given | 08/12/20 | 200 mg | | | | Intravenous, PRN, Starting Wed | | 18 12:30 | | | | | 08/12/18 at 1230, Anesthesia | | PM PST | | | | | Intra-op | | | | | | + +-------+ +--------+---+---+ +---+---+ | | | +---+---+ + + + + +-------+---+ | propofol (DIPRIVAN) injection | Restarte | 08/12/20 | 25 | 20.4 | | | Intravenous, CONTINUOUS PRN, | d | 18 2:00 | mcg/kg/m | mL/hr | | | Starting 08/12/18 at 1306, | | PM PST | in | | | | Anesthesia Intra-op | | | | | | + + + + +-------+---+ +---------+ + +-------+---+ | New Bag | 08/12/20 | 37.5 | 30.6 | | | | 18 1:06 | mcg/kg/m | mL/hr | | | | PM PST | in | | | +---------+ + +-------+---+ +---+---+ | | | +---+---+ + +-------+ +-------+---+---+ | rocuronium (ZEMURON) injection | Given | 08/12/20 | 20 mg | | | | Intravenous, PRN, Ventilator | | 18 1:04 | | | | | Dyssynchrony, Starting Wed | | PM PST | | | | | 08/12/18 at 1229, Anesthesia | | | | | | | Intra-op | | | | | | + +-------+ +-------+---+---+ +-------+ +-------+---+---+ | Given | 08/12/20 | 25 mg | | | | | 18 12:32 | | | | | | PM PST | | | | +-------+ +-------+---+---+ | Given | 08/12/20 | 5 mg | | | | | 18 12:29 | | | | | | PM PST | | | | +-------+ +-------+---+---+ +---+---+ | | | +---+---+ + +-------+ +--------+---+---+ | ropivacaine (NAROPIN) 5 mg/mL | Given | 08/12/20 | 20 mLs | | | | (0.5%) injection PERINEURAL, | | 18 12:34 | | | | | PRN, Starting 08/12/18 at | | PM PST | | | | | 1234, Anesthesia Intra-op | | | | | | + +-------+ +--------+---+---+ +---+---+ | | | +---+---+ + +-------+ +--------+---+---+ | succinylcholine (ANECTINE) | Given | 08/12/20 | 150 mg | | | | injection Intravenous, PRN, | | 18 12:30 | | | | | Starting 08/12/18 at 1230, | | PM PST | | | | | Anesthesia Intra-op | | | | | | + +-------+ +--------+---+---+ +---+---+ | | | +---+---+ + +-------+ +--------+---+---+ | sugammadex (BRIDION) injection | Given | 08/12/20 | 100 mg | | | | Intravenous, PRN, Starting Wed | | 18 2:16 | | | | | 08/12/18 at 1414, Anesthesia | | PM PST | | | | | Intra-op | | | | | | + +-------+ +--------+---+---+ +-------+ +--------+---+---+ | Given | 08/12/20 | 100 mg | | | | | 18 2:14 | | | | | | PM PST | | | | +-------+ +--------+---+---+ +---+---+ | | | +---+---+ documented in this encounter"
--- OUTSIDE RECORDS SUMMARY | ~2019-09-01 | XMS | Encounter Summary ---
Demographics + + + | Address | [address] | | | [place] [address] | + + + | Home Phone | | + + + | Preferred Language | Unknown | + + + | Marital Status | | + + + | Sikh Affiliation | Unknown | + + + | Race | Unknown | + + + | Ethnic Group | Unknown | + + + Author + + + | Author | [facility] | | | and [place] | + + + | Organization | [facility] | | | and [...] | | | | | [place] [address] | | + + + + + Care Team Providers + +------+ + | Care Finisher Wallboard And Plasterboard Name | Role | Phone | + +------+ + | Priyanka Sal PA-C | PCP | | + +------+ + Reason for Visit + + + | Reason | Comments | + + + | Paperwork | | + + + Encounter Details +--------+ + + + + | Date | Type | Department | Care Team | Description | +--------+ + + + + | 04/30/ | Telephone | [facility] [place] | Emil Garcia, | Paperwork | | 2017 | | NEUROSURGERY [address] | DO [address] | | | | | [address] | [address] [place], [place] | | | | | [place], [place] | [address] | | | | | [address] | | | | | | [phone] | | | +--------+ + + + [...]
--- OUTSIDE RECORDS SUMMARY | ~2019-09-01 | XMS | Encounter Summary ---
Demographics + + + | Address | [address] | | | [place] [address] | + + + | Home Phone | | + + + | Preferred Language | Unknown | + + + | Marital Status | | + + + | Anabaptism Affiliation | Unknown | + + + | Race | Unknown | + + + | Ethnic Group | Unknown | + + + Author + + + | Author | [facility] | | | and [place] | + + + | Organization | [facility] | | | and [place] | + + + | Address | Unknown | + + + | Phone | Unavailable | + + + Support + + + + + | Name | Relationship | Address | Phone | + + + + + | Alma Gramajo | ECON | [address] | | | | | [place] [address] | | + + + + + Care Team Providers + +------+ + | Care Granite Polisher Name | Role | Phone | + [...] [address] | [address] [place], [place] | extremity, | | | | [place], [place] | [address] | unspecified | | | | [address] | | chronicity, | | | | [phone] | | unspecified | | | | [...] of the chest. | [facility] | | Lungs: No focal airspace [...] + | [facility] | [address] | [place] | [phone] | | [facility] | | [address] | | | - IMAGING | | [...] [facility] | | | | | | [facility] | | | | | | [...] + | [facility] | [address] | [place] | [phone] | | [facility] | | [address] | | | - LABORATORY | | [...] MD | | | | | | ([id number]) on 01/16/2017 | | | | | [...]
--- OUTSIDE RECORDS SUMMARY | ~2019-09-01 | XMS | Encounter Summary ---
Demographics + + + | Address | [address] | | | [place] [address] | + + + | Home Phone [...] | Organization | [facility] | | | and [place] | + + + | Address | Unknown | + + + | Phone | Unavailable | + + + Support + + + + + | Name | Relationship | Address | Phone | + + + + + | Alma Gramajo | ECON | [address] | | | | | [place] [address] | | + + + + + Care Team Providers + +------+ + | Care Cement Car Dumper Name | Role | Phone | + [...] of | Berhane Ramon, | [address] | | | | | spine of | [address] | [place], | | | | | thoracic | [address] | [place] | | | | | region | [address] [address] | [address] | | | | | Spondylolist | [place], | Phone: | | | | | hesis of | [place] [address] | [phone] | | | | | lumbar | Phone: | Fax: | | | | | region | [phone] | [phone] | | | | | Myelopathy | Fax: | | | | | | (FORMERLY [facility]) | [phone] | | | | | | Procedures [...] of | Berhane E, | [address] | | | | | spine of | PA-C [address] | [place], | | | | | thoracic | [address] | [place] | | | | | region | [address] | [address] | | | | | Spondylolist | [place], | Phone: | | | | | hesis of | [place] [address] | [phone] | | | | | lumbar | Phone: | Fax: | | | | | region | [phone] | [phone] | | | | | Myelopathy | Fax: | | | | | | (FORMERLY [facility]) | [phone] | | | | | | Procedures [...] + + | 04/16/ | Hospital | [facility] | Berhane Chavez, | Fusion of spine of | | 2016 | Encounter | MED CTR MRI [address] | PA-C [address] | thoracic region; | | | | [address] [place], | [address] [place] | Spondylolisthesis [place] | | | | [place] [address] | [place] [address] | lumbar region; | | | | [phone] | [phone] | Myelopathy (HCC) | | | | [...] MRI LUMBAR SPINE WO | Routin | 04/16/2016 | Fusion of spine of | Results for this | | CONTRAST | e | 3:12 PM | thoracic region | procedure are [...] spine fusion with new radicular symptoms | [facility] | | and myelopathy COMPARISON: 05/18/2013, CT lumbar spine 08/24/2015 | [facility] | | and MRI thoracic spine [...] | Raoul, Rad Results In - 04/16/2016 7:27 PM PDT [...] + + | Performing | Address | City/State/[facility] | Phone Number | | Organization | | | | + + + + + | [facility] | [address] | [place] | [phone] | | [facility] | | [address] | | | - IMAGING | | [...]
--- OUTSIDE RECORDS SUMMARY | ~2019-09-01 | XMS | Encounter Summary ---
Demographics + + + | Address | [address] | | | [place] [address] | + + + | Home Phone [...] Organization | [facility] | | | and [...] | | | | | [place] [address] | | + + + + + Care Team Providers + +------+ + | Care Arbor End Mainspring Former Name | Role | Phone | + +------+ + | Hudson Nair | PCP | | | | | | + +------+ + Encounter Details +--------+ + + + + | Date | Type | Department | Care Team | Description | +--------+ + + + + | 05/24/ | Hospital | [facility] | Adam Cobb | | | 2012 - | Encounter | MED CTR IRF [address] | MD [address] | | | | | [address] [place], | [address] [place] | | | 06/18/ | | [place] [id number] | [place] [address] | | | 2012 | | [phone] | [phone] | | | | | | | | | | | | Jonn Sexton MD | | | | | | [address] | | | | | | [place], [place] | | | | | | [address] | | | | | | | | | | | | Adán Oneill, | | | | | | [address] | | | | | | [place], [place] | | | | | | [address] | | | | | | | [...] Oneill MD - 06/23/2013 6:44 [place] [address] Patient Name: ROSARIO OCHOA Provider: Adán Oneill MD Unit #: [id number] Loca tion: 3ER : 1975 ADMISSION DATE: [...] Adán Oneill MD Physical Medicine/Rehabilitation JOB #: [id number] EXT JOB #:[id number] <<Signature on File>> Adán Oneill MD07/07/13 1227 [...] | and TRIGLYCERIDES may be | | [facility] | | | | adversely affected by [...] [address] | [place] | [phone] | | [facility] | | [address] | | | - LABORATORY | | | | + + + + + | [facility] | [address] | [place] | | | [facility] | | [address] | | | - LABORATORY | | [...] | 0.69 | 0.60 - 1.30 | [facility] | | | | | mg/dL | [...] + | [address] [facility] | [address] | [place] | [phone] | | [facility] | | [address] | | | - LABORATORY | | | | + + + + + | [facility] [facility] | [address] | [place] | | | [facility] | | [address] | | | - LABORATORY | | [...] [address] | [place] | [phone] | | [facility] | | [address] | | | - LABORATORY | | | | + + + + + | [facility] | [address] | [place] | | | [facility] | | [address] | | | - LABORATORY | | [...] | | | | | | [facility] | | | | | | MEDICAL [...] + | [facility] | [address] | [place] | [phone] | | [facility] | | [address] | | | - LABORATORY | | | | + + + + + | [facility] | [address] | [place], [place] | | | [facility] | | [address] | | | - LABORATORY | | [...] + + | Performing | Address | City/State/[facility] | Phone Number | | Organization | | | | + + + + + | [facility] | [address] | [place] | [phone] | | [facility] | | [address] | | | - LABORATORY | | | | + + + + + | [facility] | [address] | [place] | | | [facility] | | [address] | | | - LABORATORY | | [...] - 1.030 | [facility] | | | [place] | | | [facility] | | [...] + | [facility] | [address] | [place] | [phone] | | [facility] | | [address] | | | - LABORATORY | | | | + + + + + | [facility] | [address] | [place], [place] | | | [facility] | | [address] | | | - LABORATORY | | [...] + | [facility] | [address] | [place] | [phone] | | [facility] | | [address] | | | - LABORATORY | | | | + + + + + | [facility] | [address] | [place] | | | [facility] | | [address] | | | - LABORATORY | | [...] ST. | [address] | [place] | [phone] | | [facility] | | [address] | | | - LABORATORY | | | | + + + + + | [facility] [facility] | [address] | [place], [place] | | | [facility] | | [address] | | | - LABORATORY | | | | + + + + + documented in this encounter Visit Diagnoses Not on filedocumented in this encounter"
--- OUTSIDE RECORDS SUMMARY | ~2019-09-01 | XMS | Encounter Summary ---
Demographics + + + | Address | [address] | | | [place] [address] | + + + | Home Phone [...] | Organization | [facility] | | | and [place] | + + + | Address | Unknown | + + + | Phone | Unavailable | + + + Support + + + + + | Name | Relationship | Address | Phone | + + + + + | Alma Gramajo | ECON | [address] | | | | | [place] [address] | | + + + + + Care Team Providers + +------+ + | Care Lithographic Stripper Name | Role | Phone | + [...] | right side | [address] | [address] | | | | | without | [place], | [place], | | | | | obstruction | [place] [address] | [place] [address] | | | | | or gangrene | Phone: | Phone: | | | | | | [phone] | [phone] | | | | | | Fax: | Fax: | | | | | | [phone] | [phone] | +--------+ + + + + + Encounter Details +--------+---------+ + + + | Date | Type | Department | Care Team | Description | +--------+---------+ + + + | 07/30/ | Office | [facility] | Cris Gutierrez | Inguinal hernia of | | 2017 | Visit | SURGERY [address] | [address] | right side without | | | | ST [place], [place] | [address] [place] | obstruction or | | | | [address] | [place] [address] | gangrene (Primary | | | | [phone] | [phone] | Dx) | | | | | [...] Same Day Surgery (corner of [address]) at 11:00PM. Your surgery is called RIGHT [...] successful and comfortable surgery. Sign up for ViaCube if you want easy access to your medical information online. You can: Review your medications, immunizations, allergies and medical history. View details of your past and upcoming appointments. Sign up for ViaCube if you want easy access to your medical information online. Only you, your doctor and your health care team are permitted to view the information sent through [employer]. Through ViaCube you can: ? Review your medications, immunizations, [...] different ways you can sign up for ViaCube: ? The first way is to get online at: [email or web address] and sign up directly throug h the website prior to your appointment with us. You can call [phone] ([phone]) if you have any questions or need assistance. ? The second way is through the ViaCube tana which can be accessed with any smart phone. Ju go to your tana store and look up CardiaLen. ? The third way is to do [...] Interbody Fusion; Surgeon: Emil Garcia DO; Location: [facility] MA[facility] OR LUMBAR SPINE SURGERY [address] URETEROSCOPY Left 02/12/2018 Procedure: Left Ureteroscopy, Laser Lithotripsy and Stent; Surgeon: Satinder Elizondo MD; Location: [facility] MAIN OR Allergies Allergen Reactions Diazepam [...] limited to bleeding, infection, scar, pain, recurrence, department clinician vilma pain, injury to cord structures and loss of testicle, bowel injury, unforeseen complicat ions and . He understands risks and wishes to proceed. He signed a consent for the pr ocedure. He would like surgery on August 12Friday He will follow-up 2 weeks after surgery Cris Gutierrez MD CC PCP: Priyanka Sal PA-C Portions of this chart may have been created with [employer] voice recognition software. Occasi onal wrong-word or [...]
--- OUTSIDE RECORDS SUMMARY | ~2019-09-01 | XMS | Encounter Summary ---
Demographics + + + | Address | [address] | | | [place] [address] | + + + | Home Phone | | + + + | Preferred Language | Unknown | + + + | Marital Status | | + + + | Confucianism Affiliation | Unknown | + + + | Race | Unknown | + + + | Ethnic Group | Unknown | + + + Author + + + | Author | [facility] | | | and [place] | + + + | Organization | [facility] | | | and [place] | + + + | Address | Unknown | + + + | Phone | Unavailable | + + + Support + + + + + | Name | Relationship | Address | Phone | + + + + + | Loraine Ochoa | ECON | [address] | | | | | [place] [address] | | + + + + + Care Team Providers + +------+ + | Care Shaping Machine Operator Name | Role | Phone | + +------+ + | Priyanka Sal PA-C | PCP | | + +------+ + Reason for Visit + + + | Reason | Comments | + + + | New Patient | inguinal hernia of right side | + [...] | | | | obstruction | [place] [address] | [place] [address] | | | | | or gangrene | Phone: | Phone: | | | | | | [phone] | [phone] | | | | | | Fax: | Fax: | | | | | | [phone] | [phone] | +--------+ + + + + + Encounter Details +--------+---------+ + + + | Date | Type | Department | Care Team | Description | +--------+---------+ + + + | 07/28/ | Office | [facility] | Cris Gutierrez | Inguinal hernia of | | 2017 | Visit | SUR[address]ERY [address] | [address] | right side without | | | | ST [place], [place] | [address] [place] | obstruction or | | | | [address] | [place] [address] | gangrene (Primary | | | | [phone] | Dx) | | | | | [...] + + + | Blood Pressure | 120/68 | 07/28/2018 10:09 AM | | | | | PST | | + + + + + | Pulse | 69 | 07/28/2018 10:09 AM | | | | | PST | | + + + + + | Temperature | 36.6 C (97.8 F) | 07/28/2018 10:09 AM | | | | | PST | | + + + + + | Respiratory Rate | - | - | | + + + + + | Oxygen Saturation | 98% | 07/28/2018 10:09 AM | | | | | PST | | + + + + + | Inhaled Oxygen | - | - | | | Concentration | | | | + + + + + | Weight | 133.6 kg (294 lb 8.6 | 07/28/2018 10:09 AM | | | | oz) | PST | | + + + + + | Height | 188 cm (6' 2") | 07/28/2018 10:09 AM | | | | | PST | | + + + + + | Body Mass Index | 37.82 | 07/28/2018 10:09 AM | | | | | PST [...] encounter Progress Notes Cris Gutierrez MD - 07/28/2018 10:00 AM PST Consult Note Referring Provider: Michael Engel MD HISTORY OF PRESENT ILLNESS Zaheer Ochoa is a 43 y.o. male patient of Priyanka Harries, PA-C here today for ev aluation of Inguinal hernia of right side without obstruction or gangrene. Physician notes: This is here for evaluation of inguinal hernia on the right side. 2 weeks ago he started h aving pain in the right groin and on Friday last week he went to the emergency room and was then referred here for right inguinal hernia. His became quite severe last Friday on black Friday when he was shopping and was associated with nausea and he said he almost vomited. H is pain is described as sharp and also has a grabbing and pulling sensation. He is a nonsmoker but does have a chronic history of constipation for which she takes Floyd AX. He also lifts heavy objects on a daily basis at work in the [employer]. JOVANNI Score: 3, JOVANNI Risk Score 07/28/2018 Risk for Obstructive Sleep Apnea Suspected Risk for JOVANNI Imaging/ Pathology: CT ABDOMEN AND PELVIS WITH CONTRAST 03/02/2018 CLINICAL INFORMATION: RLQ pain COMPARISON: 12/09/2017 PROCEDURE: Axial images through the abdomen and pelvis after the administration of 85 Omnipaque 350 intravenous contrast. Multiplanar reconstructions. At least one of the following CT dose optimization techniques were used: Automated exposure control; Adjustment of mA and/or kV according to patient size; Use of iterative reconstruction technique. FINDINGS: LUNG BASES: No significant pulmonary abnormality. No pleural effusion or pneumothorax. ABDOMEN Liver and Biliary: No gallbladder or biliary abnormality. No significant liver abnormality. Pancreas, Spleen and Adrenals: No pancreatitis or pancreatic mass. No splenomegaly, splenic mass or splenic hemorrhage. No significant adrenal abnormality. Kidneys: No hydronephrosis or suspicious renal mass. Tiny 2 mm calculus in the proximal left ureter at the level of L3-4. ABDOMEN AND PELVIS Bowel: Mild circumferential wall thickening of the rectum, uncertain etiology or significance. No wall thickening elsewhere in the colon. Normal appendix. Small bowel loops normal caliber. Vessels: No significant abnormality in the aorta, its proximal branches or the iliac arteries. No significant abnormality in the portal veins, mesenteric veins or systemic veins. Lymph Nodes: No adenopathy. Peritoneum and Retroperitoneum: No free fluid or free air. No peritoneal mass. Mild fat stranding in the right lower quadrant anterior and lateral to the ascending colon with fat attenuation center, series 2, image 77, compatible with epiploic appendagitis. PELVIS Genitourinary: Distal ureters and bladder appear normal. No pelvic masses. BODY WALL Soft Tissues: Small fat containing right inguinal hernia. Bones: No acute fracture or vertebral end plate destruction. Sclerotic lesion is seen in the right ilium, unchanged and likely representing a bone island.. No suspicious lytic or or blastic lesion. Postsurgical changes thoracolumbar spine. IMPRESSION- 1. Acute right lower quadrant epiploic appendagitis. Normal appendix. 2. Mild circumferential wall thickening of the nondistended rectum, uncertain etiology or significance. 3. 2 mm calculus in the proximal left ureter without associated hydronephrosis. A preliminary report was sent by [employer] with no significant discrepancy. Dictated and Signed by: Gavin Thomas MD Electronically signed: 03/02/2018 9:48 AM Priyanka Sal PA-C's notes were reviewed in clinic today. PAST MEDICAL HISTORY Past Medical History: Diagnosis [...] HOSPITAL MAIN OR LUMBAR SPINE SURGERY 2013 - [facility] URETEROSCOPY Left 02/12/2018 Procedure: Left Ureteroscopy, Laser Lithotripsy and Stent; Surgeon: Satinder Elizondo MD; Location: [facility] OR Allergies: Allergies Allergen Reactions Diazepam Anaphylaxis and Hives Fenofibrate Other (See Comments) Reaction not specified in outside medical records Medications: Outpatient Encounter Prescriptions as of 07/28/2018 Medication Sig Dispense Refill Ergocalciferol (VITAMIN D2) 2000 units TABS Take 2,000 Units by mouth Daily. ibuprofen (ADVIL,MOTRIN) 600 MG tablet Take 600 mg by mouth every 6 hours as needed for Pain. lovastatin (MEVACOR) 20 mg tablet Take 40 mg by mouth nightly. No facility-administered encounter medications on file as of 07/28/2018. 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 Alcohol use No Drug use: No Sexual activity: Not Asked Other Topics Concern None Social History Narrative None REVIEW OF SYSTEMS: Unmarked boxes mean negative response. General: []Weight loss/gain (over 10 lbs) []Fever/chills []Night sweats Hematologic: []Bleeding/brusing tendencies []Blood transfusion []Anemia Heent: []Vision loss []Hearing loss []Sinus problems/nose bleeds []Hoarseness Respiratory: []Wheezing []Shortness of breath []Cough []Spitting up blood []On oxygen []Use CPAP machine Cardiac: []Chest pain []Palpitations/heart racing [x]Swelling of ankles/hands []Unusual shortness of breath [x]Difficulty sleeping fla t Gastrointestinal: []Nausea/vomiting []Difficulty swallowing [x]Heartburn []Loss of appetite [x]Abdominal pain []Stoma ch Ulcers []Diarrhea [x]Constipation []B lack or bloody stools Vascular: []Strokes/TIAs []Fainting []Difficulty with speech [x]Leg cramps [x]Pain in feet/legs at rest []Foot ulcers/ sores []Varicose veins []Phlebitis/blood clots Musculoskeletal: [x]Joint stiffness/swelling []Joint pain [x]Back pain []Arthritis []Gout Urologic: [x]Blood in urine []Frequent urination at night [x]Burning/painful urination [x]Kidney stones []Difficult urination [x]Sexual difficultie s Neuro/Psychiatric: [x]Headaches []Seizures []Depression []Anxiety attacks []Memory loss or confusion PHYSICAL EXAM BP 120/68 | Pulse 69 | Temp 36.6 C (97.8 F) (Temporal) | Ht 1.88 m (6' 2") | Wt 133 .6 kg (294 lb 8.6 oz) | SpO2 98% | BMI 37.82 kg/m General Appearance: Alert, cooperative, no distress, [...] S1, S2 normal, no murmur Abdomen: Soft, slight tenderness in left mid abd. No masses, no hernias, no rebound or gu arding Left groin no hernia Right groin there is no movement of the mass through the inguinal area but there is a thril l when he coughs. Cannot on exam determine whether this is femoral or inguinal hernia as th e exam is limited due to body habitus Extremities: Extremities normal, atraumatic, no cyanosis, clubbing, or edema Radial pulses 2+ bilateral Neurologic: Alert and oriented x3, gait unstable due to back pain and leg weakness Assessment /Plan Zaheer was seen today for new patient. Diagnoses and all orders for this visit: Inguinal hernia of right side without obstruction or gangrene - US Groin Right; Future 43-year-old male who has most likely a right inguinal hernia but cannot rule out femoral he rnia on exam. I would like him to get an ultrasound of the right groin to help determine if this is the true hernia and if the hernias and the femoral or inguinal location. Follow-up here the day after the ultrasound for preoperative visit in the case that this is a true hernia. Return to clinic after ultrasound Cris Gutierrez MD CC PCP: Priyanka Sal PA-C Portions of this chart may have been created with [employer] voice recognition software. Occasi onal wrong-word or sound-alike substitutions may have occurred due to the inherent ann itations of voice recognition software. Please read the chart carefully and recognize, using context, where these substitutions have occurred. documented in this encounter Plan of Treatment Not on filedocumented as of this encounter Results US Groin Right (07/29/2018 [...]
--- OUTSIDE RECORDS SUMMARY | ~2019-09-01 | XMS | Encounter Summary ---
Demographics + + + | Address | [address] | | | [place] [address] | + + + | Home Phone [...] + | Organization | [facility] | | [...] | | | | | [place] [address] | | + + + + + Care Team Providers + +------+ + | Care Process Expert Name | Role | Phone | + +------+ + | Priyanka Sal PA-C | PCP | | + +------+ + Encounter Details +--------+ + + + + | Date | Type | Department | Care Team | Description | +--------+ + + + + | 01/15/ | Preadmit | [facility] | Emil Garcia, | Pre-operative | | 2017 | Visit | MED CTR PREADMIT | DO [address] | clearance (Primary | | | | CLINIC [address] | [address] [place], [place] | Dx); Deep vein | | | | [place], [place] | [address] | thrombosis (DVT) of | | | | [address] | | lower extremity, | | | [...] and lateral views of the chest. | [facility] | | Lungs: No focal [...] [address] | [place] | [phone] | | [facility] | | [address] | | | - IMAGING | | [...] [address] | [place] | [phone] | | [facility] | | [address] | | | - LABORATORY | | [...] [address] | [place] | [phone] | | [facility] | | [address] | | | - LABORATORY | | [...] MD | | | | | | ([phone]) on 01/16/2017 | | | | | [...]
--- OUTSIDE RECORDS SUMMARY | ~2019-09-01 | XMS | Encounter Summary ---
Demographics + + + | Address | [address] | | | [place] [address] | + + + | Home Phone | | + + + | Preferred Language | Unknown | + + + | Marital Status | | + + + | Zoroastrianism Affiliation | Unknown | + + + | Race | Unknown | + + + | Ethnic Group | Unknown | + + + Author + + + | Author | [facility] | | | and [place] | + + + | Organization | [facility] | | [...] | | | | | [place] [address] | | + + + + + Care Team Providers + +------+ + | Care Hand Model Name | Role | Phone | + [...] | Dx); Lumbar | | | | [place], [place] | [place] [address] | radicular pain; | | | | [address] | [phone] | Right leg weakness; | | | | [phone] | | Osteoarthritis of | | | [...] a LSO which was provided by a customer counter representative of [facility]. Cris Conte RN ontes, [facility] Market Consultant - 01/15/2017 9:19 AM PDTREVIEW OF SYSTEMS [...] 9:06 AM PDT LAMIN Lindsay [address], [address] [place] [address] FAX: NEUROSURGERY FOLLOW-UP CHIEF COMPLAINT: Chief Complaint [...] a box at his job at the [employer]. While lifting this box and twisting he [...] has no apparent deficits with short or bed bug exterminator memory. CRANIAL NERVES: Fundoscopic Exam: The optic [...]
--- OUTSIDE RECORDS SUMMARY | ~2019-09-01 | XMS | Encounter Summary ---
Demographics + + + | Address | [address] | | | [place] [address] | + + + | Home Phone | | + + + | Preferred Language | Unknown | + + + | Marital Status | | + + + | Adventist Affiliation | Unknown | + + + | Race | Unknown | + + + | Ethnic Group | Unknown | + + + Author + + + | Author | [facility] | | | and Edm[place] | + + + | Organization | [facility] | | | and [...] | | | | | [place] [address] | | + + + + + Care Team Providers + +------+ + | Care Carbon Blocks Press Operator Name | Role | Phone | [...] | 03/13/ | Office | [facility] [place] | Berhane Chavez, | S/P lumbar fusion | | 2017 | Visit | NEUROSURGERY [address] | PA-C [address] | (Primary Dx) | | | | [address] | [address] [place] | | | | | [place], [place] | [place] [address] | | | | | [address] | [phone] | | | | | [phone] | | | +--------+---------+ + + + [...] encounter Patient Instructions Patient Instructions Alecia Burns, Flooring Mechanic - 03/13/2017 1:30 PM PDTYou may no [...] like sleeping, showering, do not use the Commercial[employer]ribe for these activities any longer but continue [...] your back and use good technique when tow picker things and bending. documented in this encounter Progress Notes Berhane Chavez PA - 03/13/2017 1:30 PM PDTFormatting of this note might be different f rom the original. LAMIN Lindsay [address] [facility], [address] [place], [place] [address] FAX: NEUROSURGERY FOLLOW-UP CHIEF COMPLAINT: Chief Complaint [...]
--- OUTSIDE RECORDS SUMMARY | ~2019-09-01 | XMS | Encounter Summary ---
Demographics + + + | Address | [address] | | | [place] [address] | + + + | Home Phone | | + + + | Preferred Language | Unknown | + + + | Marital Status | | + + + | Episcopal Affiliation | Unknown | + + + | Race | Unknown | + + + | Ethnic Group | Unknown | + + + Author + + + | Author | [facility] | | | and Edmundo | + + + | Organization | [facility] | [...] | | | | | [place] [address] | | + + + + + Care Team Providers + +------+ + | Care Manufacturing Management Associate Name | Role | Phone | + +------+ + | Priyanka Sal PA-C | PCP | | + +------+ + Reason for Visit + + + | Reason | Comments | + + + | Wound Check | | + + + Encounter Details +--------+ + + + + | Date | Type | Department | Care Team | Description | +--------+ + + + + | 01/22/ | Emergency | [facility] | Christiano Mcgill, | Left foot infection | | 2015 | | [facility] | [address] | (Primary Dx) | | | | CENTER [address] | [facility] [place] | | | | | [place], [place] | [place] [address] | | | | | [address] | [phone] | | | | | [phone] | | | | | | | Chris Steve | | | | | | MD Uday [address] | | | | | | [address] [place] | | | | | | [place] [address] | | | | | | [phone] | | | | | | | [...] + + + | Blood Pressure | 122/69 | 01/22/2015 8:58 PM | | | | | PDT | | + + + + + | Pulse | 60 | 01/22/2015 8:58 PM | | | | | PDT | | + + + + + | Temperature | 37.3 C (99.1 F) | 01/22/2015 8:58 PM | | | | | PDT | | + + + + + | Respiratory Rate | 16 | 01/22/2015 8:58 PM | | | | | PDT | | + + + + + | Oxygen Saturation | 96% | 01/22/2015 8:58 PM | | | | | PDT | | + + + + + | Inhaled Oxygen | - | - | | | Concentration | | | | + + + + + | Weight | 127 kg (280 lb) | 01/22/2015 8:58 PM | | | | | PDT | | + + + + + | Height | 188 cm (6' 2.02") | 01/22/2015 8:58 PM | | | | | PDT | | + + + + + | Body Mass Index | 35.93 | 01/22/2015 8:58 PM | | | | | PDT | | + + + + + documented in this encounter Discharge Instructions Instructions Chris Steve MD - 01/22/2015Continue oral antibiotics. Return for severe worsening pain nausea vomiting fever or other worsening symptoms. Follow up wit h your primary care physician. documented in this encounter Medications at Time of Discharge + + + +---------+ + + | Medication | Sig | Dispensed | Refills | Start | End Date | | | | | | Date | | + + + +---------+ + + | clindamycin | Take 1 capsule | 30 | 0 | 01/22/20 | | | (CLEOCIN) 300 MG | fpc between each | capsule | | 15 [...] | Diagnosis | + + | Left foot infection - Primary Unspecified local infection of skin and subcutaneous | | tissue | + + documented in this encounter
--- OUTSIDE RECORDS SUMMARY | ~2019-09-01 | XMS | Encounter Summary ---
Demographics + + + | Address | [address] | | | [place] [address] | + + + | Home Phone | | + + + | Preferred Language | Unknown | + + + | Marital Status | | + + + | Lutheran Affiliation | Unknown | + + + | Race | Unknown | + + + | Ethnic Group | Unknown | + + + Author + + + | Author | [facility] | | | and [place] | + + + | Organization | [facility] | | | and [...] | | | | | [place] [address] | | + + + + + Care Team Providers + +------+ + | Care Assembler Aircraft Power Plant Name | Role | Phone | + [...] + + | 02/18/ | Office | [facility] | Satinder Elizondo | Nephrolithiasis | | 2018 | Visit | [address] | MD Demond [address] | (Primary Dx) | | | | [place], [place] | [place], [place] | | | | | [address] | [address] | | | | | [phone] | | | +--------+---------+ + + + [...] Interbody Fusion; Surgeon: Emil Garcia DO; Location: [facility] MAIN OR LUMBAR SPINE SURGERY 2013 x2 URETEROSCOPY Left 02/12/2018 Procedure: Left Ureteroscopy, Laser Lithotripsy and Stent; Surgeon: Satinder Elizondo MD; Location: [facility] MAIN OR Family History: Family History [...] UA, POC Negative Negative, 100 mg/dL Specific [place], UA, POC 1.020 1.001 - 1.030 Blood, [...]
--- OUTSIDE RECORDS SUMMARY | ~2019-09-01 | XMS | Encounter Summary ---
Demographics + + + | Address | [address] | | | [place] [address] | + + + | Home Phone [...] Organization | [facility] | | | and [place] | + + + | Address | Unknown | + + + | Phone | Unavailable | + + + Support + + + + + | Name | Relationship | Address | Phone | + + + + + | Alma Gramajo | ECON | [address] | | | | | [place] [address] | | + + + + + Care Team Providers + +------+ + | Care Explosive Ordnance Technician Name | Role | Phone | + +------+ + | Priyanka Sal PA-C | PCP | | + +------+ + Encounter Details +--------+ + + + + | Date | Type | Department | Care Team | Description | +--------+ + + + + | 11/04/ | Episode | [facility] [place] | Fantasma Nolen, | | | 2017 | Changes | NEUROSURGERY [address] | RN | | | | | [address] | | | | | | [place] | | | | | | [address] | | | | | | [phone] | | | +--------+ + + + [...]
--- OUTSIDE RECORDS SUMMARY | ~2019-09-01 | XMS | Encounter Summary ---
Demographics + + + | Address | [address] | | | [place] [address] | + + + | Home Phone [...] | Organization | [facility] | [...] | | | | | [place] [address] | | + + + + + Care Team Providers + +------+ + | Care Furniture Finisher Helper Name | Role | Phone | [...] [address] | [address], [place] | radiculopathy, | | | | [place], [place] | [address] | lumbar region | | | | [address] | | (Primary Dx); Status | | | | [phone] | | post lumbar spinal | | [...] and lateral views of the lumbosacral | [facility] | | spine. Posterior pedicle screw and magali fusion changes at L3-4 [facility] | | with interbody graft spacer. [...] | + + + + + | [facility] | [address] | [place] | [phone] | | [facility] | | [address] | | | - IMAGING | | | | + + + + + documented in this encounter Visit Diagnoses + + | Diagnosis | + + | Osteoarthritis of spine with radiculopathy, lumbar region - Primary | + + | Status post lumbar spinal fusion Arthrodesis status | + + documented in this encounter"
--- OUTSIDE RECORDS SUMMARY | ~2019-09-01 | XMS | Encounter Summary ---
Demographics + + + | Address | [address] | | | [place] [address] | + + + | Home Phone | | + + + | Preferred Language | Unknown | + + + | Marital Status | | + + + | Rastafari Affiliation | Unknown | + + + | Race | Unknown | + + + | Ethnic Group | Unknown | + + + Author + + + | Author | [facility] | | | and [place] | + + + | Organization | [facility] | [...] | | | | | [place] [address] | | + + + + + Care Team Providers + +------+ + | Care Documentation Consultant Name | Role | Phone | [...] | visit | CLIN[facility] [address] | SALES TRADER [address] | venous thrombosis) | | | | Street [place], | [place], [place] | ([facility]) (Primary Dx); | | | | [place] [address] | [address] | Monitoring for | | | | [phone] | | anticoagulant use | +--------+ + [...] - 07/21/2013 1:10 PM PSTContinue current warfarin schedule.[id number] ectronically signed by IVA Troncoso at 07/21/2013 [...]
--- OUTSIDE RECORDS SUMMARY | ~2019-09-01 | XMS | Encounter Summary ---
Demographics + + + | Address | [address] | | | [place] [address] | + + + | Home Phone | | + + + | Preferred Language | Unknown | + + + | Marital Status | | + + + | Faith Affiliation | Unknown | + + + | Race | Unknown | + + + | Ethnic Group | Unknown | + + + Author + + + | Author | [facility] | | | and [place] | + + + | Organization | [facility] [...] | | | | | [place] [address] | | + + + + + Care Team Providers + +------+ + | Care Geochemical Laboratory Technician Name | Role | Phone | + +------+ + | Priyanka Sal PA-C | PCP | | + +------+ + Reason for Visit +--------+ + | Reason | Comments | +--------+ + | Other | Claim info | +--------+ + Encounter Details +--------+ + + + + | Date | Type | Department | Care Team | Description | +--------+ + + + + | 12/11/ | Telephone | [facility] [place] | Berhane Chavez, | Other (Claim info) | | 2015 | | NEUROSURGERY [address] | PA-C [address] | | | | | [address] | [address] [place] | | | | | [place], [place] | [place] [address] | | | | | [address] | [phone] | | | | | [phone] | | | +--------+ + + + [...]
--- OUTSIDE RECORDS SUMMARY | ~2019-09-01 | XMS | Encounter Summary ---
Demographics + + + | Address | [address] | | | [place] [address] | + + + | Home Phone [...] + | Organization | [facility] | | | and [...] | | | | | [place] [address] | | + + + + + Care Team Providers + +------+ + | Care Apprentice Lineman Third Step Name | Role | Phone | + +------+ + | Priyanka Sal PA-C | PCP | | + +------+ + Reason for Visit + + + | Reason | Comments | + + + | Appointment | | + + + | Fall Follow-up | | + + + Encounter Details +--------+ + + + + | Date | Type | Department | Care Team | Description | +--------+ + + + + | 03/17/ | Telephone | [facility] | Emil Garcia, | Appointment; Fall | | 2016 | | NEUROSURGERY [address] | DO [address] | Follow-up | | | | [address] | [address] [place], [place] | | | | | [place], [place] | [address] | | | | | [address] | | | | | | [phone] | | | +--------+ + + + [...]
--- OUTSIDE RECORDS SUMMARY | ~2019-09-01 | XMS | Encounter Summary ---
Demographics + + + | Address | [address] | | | [place] [address] | + + + | Home Phone [...] | Organization | [facility] | | | and [place] | + + + | Address | Unknown | + + + | Phone | Unavailable | + + + Support + + + + + | Name | Relationship | Address | Phone | + + + + + | Alma Gramajo | ECON | [address] | | | | | [place] [address] | | + + + + + Care Team Providers + +------+ + | Care Grinder Brake Lining Name | Role | Phone | + [...] | visit | CLINIC [address] | ASSOCIATE CHIEF NURSE [address] | venous thrombosis) | | | | Street [place], | [place], [place] | ([facility] (Primary Dx); | | | | [place] [address] | [address] | Monitoring for | | | | [phone] | | anticoagulant use | +--------+ + [...]
--- OUTSIDE RECORDS SUMMARY | ~2019-09-01 | XMS | Encounter Summary ---
Demographics + + + | Address | [address] | | | [place] [address] | + + + | Home Phone [...] Organization | [facility] | | | and [...] | | | | | [place] [address] | | + + + + + Care Team Providers + +------+ + | Care Confectionery Drops Machine Operator Name | Role | Phone | + +------+ + | Priyanka Sal PA-C | PCP | | + +------+ + Reason for Visit +--------+ + | Reason | Comments | +--------+ + | Forms | | +--------+ + Encounter Details +--------+ + + + + | Date | Type | Department | Care Team | Description | +--------+ + + + + | 03/03/ | Telephone | [facility] [place] | Emil Garcia, | Forms | | 2017 | | NEUROSURGERY [address] | DO [address] | | | | | [address] | [address] [place], [place] | | | | | [place], [place] | [address] | | | | | [address] | | | | | | [phone] | | | +--------+ + + + [...]
--- OUTSIDE RECORDS SUMMARY | ~2019-09-01 | XMS | Encounter Summary ---
Demographics + + + | Address | [address] | | | [place] [address] | + + + | Home Phone | | + + + | Preferred Language | Unknown | + + + | Marital Status | | + + + | Mormon Affiliation | Unknown | + + + | Race | Unknown | + + + | Ethnic Group | Unknown | + + + Author + + + | Author | [facility] | | | and [place] | + + + | Organization | [facility] | [...] | | | | | [place] [address] | | + + + + + Care Team Providers + +------+ + | Care Table Filler Name | Role | Phone | + [...] [address] | [address] [place], [place] | | | | | [place], [place] | [address] | | | | | [address] | | | | | | [phone] | | | +--------+ + + + [...]
--- OUTSIDE RECORDS SUMMARY | ~2019-09-01 | XMS | Encounter Summary ---
Demographics + + + | Address | [address] | | | [place] [address] | + + + | Home Phone [...] + | Organization | [facility] | | [...] | | | | | [place] [address] | | + + + + + Care Team Providers + +------+ + | Care Manager Hair Name | Role | Phone | + +------+ + | Priyanka Sal PA-C | PCP | | + +------+ + Reason for Visit + + + | Reason | Comments | + + + | Neurosurgery | Cancel Appointment | | Appointment | | + + + Encounter Details +--------+ + + + + | Date | Type | Department | Care Team | Description | +--------+ + + + + | 03/17/ | Telephone | [facility] [place] | Emil Garcia, | Neurosurgery | | 2018 | | NEUR[address]UR[address]ERY [address] | DO [address] | Appointment (Cancel | | | | [address] | [address] [place], [place] | Appointment) | | | | [place], [place] | [address] | | | | | [address] | | | | | | [phone] | | | +--------+ + + + [...]
--- OUTSIDE RECORDS SUMMARY | ~2019-09-01 | XMS | Encounter Summary ---
Demographics + + + | Address | [address] | | | [place] [address] | + + + | Home Phone | | + + + | Preferred Language | Unknown | + + + | Marital Status | | + + + | Anglican Affiliation | Unknown | + + + | Race | Unknown | + + + | Ethnic Group | Unknown | + + + Author + + + | Author | [facility] | | | and [place] | + + + | Organization | [facility] | [...] | | | | | [place] [address] | | + + + + + Care Team Providers + +------+ + | Care Fish Cleaner Machine Tender Name | Role | Phone [...] | Lumbar | Mai, | [address] | | | | | radiculopath | Adán Shah MD | [place], | | | | | y | [address] | [place] | | | | | Procedures | [place] | [address] | | | | | ID INJECT | [place], [place] | Phone: | | | | | ANES/STEROID | [address] | [phone] | | | | | FORAMEN | Phone: | Fax: | | | | | LUMBAR/SACRA | [phone] | [phone] | | | | | L [address] IMG | Fax: | | | | | | GUIDE ,1 | [phone] | | | | | | LEVEL ID | | | | | | [...] + + | 06/04/ | Hospital | [facility] | Adán Oneill | Lumbar radiculopathy | | 2016 | Encounter | MED CTR XRAY [address] | T, [address] | | | | | [place] | [place] | | | | | [place], [place] [address] | [address] | | | | | [phone] | | | | | | | Platform BuilderOle | | +--------+ + + + + [...] Diagnosis: Lumbar radiculopathy ICD-10 Code M54.16 | [facility] | | Zaheer Gramajo presents to the fluoroscopy suite for [facility] | | fluoroscopically-guided bilateral L3-L4 transforaminal [...] + | Performing | Address | City[facility]State[facility] | Phone Number | | Organization | | | | + + + + + | [address] | [address] | [place] | [phone] | | [facility] | | [address] | | | - IMAGING | | [...]
--- OUTSIDE RECORDS SUMMARY | ~2019-09-01 | XMS | Encounter Summary ---
Demographics + + + | Address | [address] | | | [place] [address] | + + + | Home Phone [...] + | Organization | [facility] | [...] | | | | | [place] [address] | | + + + + + Care Team Providers + +------+ + | Care Chief Librarian Music Department Name | Role | Phone | + +------+ + | Hudson Nair | PCP | | | MD | | | + +------+ + Encounter Details +--------+ + + + + | Date | Type | Department | Care Team | Description | +--------+ + + + + | 07/07/ | Hospital | [facility] | Aydee Yañez | | | 2012 | Encounter | MED CTR EMERGENCY | DO Conor Piper | | | | | CENTER [address] | [address] [place] | | | | | [place], [place] | [address] | | | | | [address] | | | | | | [phone] | | | +--------+ + + + [...] + | [facility] | [address] | [place], [place] | [phone] | | [facility] | | [address] | | | - LABORATORY | | | | + + + + + | [facility] | [address] | [place], [place] | | | [facility] | | [address] | | | - LABORATORY | | [...] + | [facility] | [address] | [place] | [phone] | | [facility] | | [address] | | | - LABORATORY | | | | + + + + + | [facility] | [address] | [place] | | | [facility] | | [address] | | | - LABORATORY | | [...] + | [facility] | [address] | [place], [place] | [phone] | | [facility] | | [address] | | | - LABORATORY | | | | + + + + + | [facility] | [address] | [place], [place] | | | [facility] | | [address] | | | - LABORATORY | | [...] + | [facility] | [address] | [place] | [phone] | | [facility] | | [address] | | | - LABORATORY | | | | + + + + + | [facility] | [address] | [place] | | | [facility] | | [address] | | | - LABORATORY | | | | + + + + + documented in this encounter Visit Diagnoses Not on filedocumented in this encounter"
--- OUTSIDE RECORDS SUMMARY | ~2019-09-01 | XMS | Encounter Summary ---
Demographics + + + | Address | [address] | | | [place] [address] | + + + | Home Phone | | + + + | Preferred Language | Unknown | + + + | Marital Status | | + + + | Muslim Affiliation | Unknown | + + + | Race | Unknown | + + + | Ethnic Group | Unknown | + + + Author + + + | Author | [facility] | | | and [place] | + + + | Organization | [facility] | [...] | | | | | [place] [address] | | + + + + + Care Team Providers + +------+ + | Care Commercial Green Building Architect Name | Role | Phone | + [...] | | | | | | | [place] REPAIR | | | | | | [...] | | | | | [address] | [address] [place] | | | | | [place] | [place] [address] | | | | | [address] | [phone] | | | | | [phone] | | | | | | | Mark Munguia, | | | | | | [address] | | | | | | [place] | | | | | | [address] | | | | | | | [...] +----+---+ + + | | 1 | [place] | | | | 2 | 43-degrees [...] +----+---+ + + | | 1 | [place] off | | | | 4 | [...] 1214 by | | | eral | [id number] catheter system; | Cha Davies RN | [...] | | | | | Additional Comments: [facility] | | | | | intubation. [...] 12:48 PM PST Anesthesia Airway | | Erzmenmyg14/12/2018 12:32Preprocedure check: patient identified, oxygen, airway | [...]
--- OUTSIDE RECORDS SUMMARY | ~2019-09-01 | XMS | Encounter Summary ---
Demographics + + + | Address | [address] | | | [place] [address] | + + + | Home Phone [...] + | Organization | [facility] [...] | | | | | [place] [address] | | + + + + + Care Team Providers + +------+ + | Care Sales Service Assistant Name | Role | Phone | [...] | | | | | | | [place] REPAIR | | | | | | [...] + + | 08/12/ | Hospital | [facility] | Cris Gutierrez | Right inguinal | | 2018 | Encounter | MED CTR OR INTRA OP | MD [address] | hernia | | | | [address] | [place] | | | | | [place] | [place] [address] | | | | | [address] | [phone] | | | | | [phone] | | | +--------+ + + + [...] Office Phone Number to Contact Dr Gutierrez: [phone] Gutierrez's Office to schedule a follow up visit in about 2 weeks. Our off ce is located in the [facility] next door to Urgent Care. Wound Care [...] Friday 9:00-2:00PM. Call the General Surgery Office [phone] for the following: Persistent vomiting Diarrhea lasting [...] as possible. Limit sports and strenuous activities [id number]. Shower as usual. Gently wash around your [...] Care Everywhere.Having Hernia S urgery: Traditional Repair (Iraqi)documented in this encounter Medications at Time [...]
--- OUTSIDE RECORDS SUMMARY | ~2019-09-01 | XMS | Encounter Summary ---
Demographics + + + | Address | [address] | | | [place] [address] | + + + | Home Phone | | + + + | Preferred Language | Unknown | + + + | Marital Status | | + + + | Mosque Affiliation | Unknown | + + + | Race | Unknown | + + + | Ethnic Group | Unknown | + + + Author + + + | Author | [facility] | | | and [place] | + + + | Organization | [facility] | | [...] | | | | | [place] [address] | | + + + + + Care Team Providers + +------+ + | Care Pin Puller Name | Role | Phone | + [...] + + | Closed | Specialty | Orthopedic | Diagnoses | Rossy, | Loi | | | Services | Surgery | Sprain of | Taz | Walter Duckworth MD | | | Required | | right | MD Chris | [address] | | | | | rotator cuff | [address] | [place] | | | | | capsule, | [place] | [place] | | | | | initial | [place] | [address] | | | | | encounter | [address] | Phone: | | | | | | Phone: | [phone] | | | | | | [phone] | Fax: | | | | | | Fax: | [phone] | | | | | | [phone] | | +--------+ + + + + + Reason for Visit + + + | Reason | Comments | + + + | Shoulder Pain | | + + + Encounter Details +--------+ + + + + | Date | Type | Department | Care Team | Description | +--------+ + + + + | 11/28/ | Emergency | [facility] | Taz Blair | Sprain of right | | 2017 | | [facility] CTR EM[facility] | MD Chris [address] | rotator cuff | | | | CENTER [address] | [address] [place] | capsule, initial | | | | [place], [place] | [place] [address] | encounter (Primary | | | | [address] | [phone] | Dx) | | | | [phone] | | | +--------+ + + + [...] + + + | Blood Pressure | 134/80 | 11/28/2016 6:09 PM | | | | | PDT | | + + + + + | Pulse | 67 | 11/28/2016 6:09 PM | | | | | PDT | | + + + + + | Temperature | 36.6 C (97.8 F) | 11/28/2016 6:09 PM | | | | | PDT | | + + + + + | Respiratory Rate | 18 | 11/28/2016 6:09 PM | | | | | PDT | | + + + + + | Oxygen Saturation | 97% | 11/28/2016 6:09 PM | | | | | PDT | | + + + + + | Inhaled Oxygen | - | - | | | Concentration | | | | + + + + + | Weight | 134.3 kg (296 lb) | 11/28/2016 6:09 PM | | | | | PDT | | + + + + + | Height | 188 cm (6' 2") | 11/28/2016 6:09 PM | | | | | PDT | | + + + + + | Body Mass Index | 38 | 11/28/2016 6:09 PM | | | | | PDT | | + + + + + documented in this encounter Discharge Instructions AttachmentsThe following attachments cannot be sent through Care Everywhere.ROTATOR CUFF TE AR (SAMMARINESE)SHOULDER SPRAIN (SAMMARINESE)documented in this encounter Medications at Time of [...] | | Take 1 tablet by | 15 | 0 | 11/29/19 | | | oxyCODONE-acetaminop | mouth every 8 hours | tablet | | 17 | 7 | | hen (PERCOCET) 5-325 | as needed for up to | | | | | | mg per tablet | 5 days. | | | | | + + + +---------+ + + documented as of this encounter Plan of Treatment + + +--------+ + + | Name | Type | Priori | Associated Diagnoses | Order Schedule | | | | ty | | | + + +--------+ + + | Orthopedic Surgery, | Outpatient | Routin | Sprain of right | Ordered: 11/28/2016 | | External - AMB | Referral | e | rotator cuff | | | Referral | | | capsule, initial | | | | | | encounter | | + + +--------+ + + documented as of this encounter Procedures + +--------+ + + + | Procedure Name | Priori | Date/Time | Associated Diagnosis | Comments | | | ty | | | | + +--------+ + + + | XR SHOULDER RIGHT 2 | STAT | 11/28/2016 | | Results for this | | + VW | | 8:42 PM | | procedure are in the | | | | PDT | | results section. | + +--------+ + + + documented in this encounter Results XR Shoulder Right 2 + Vw (11/28/2016 8:42 PM PDT) + + | Specimen | + + | | + + + + + | Narrative | Performed At | + + + | EXAM: XR SHOULDER RIGHT 2 + VW HISTORY: SHOULDER PAIN | [facility] | | TECHNIQUE: AP, Grashey, scapular Y views of the right shoulder | | | COMPARISON: None. FINDINGS: No acute fracture or | | | malalignment. Soft tissues are unremarkable. IMPRESSION - No | | | acute fracture or malalignment. CRITICAL VALUE: No Dictated | | | and Signed by: Eron Cortes MD Electronically signed: 11/29/2016 | | | 7:24 AM | | + + + + + | Procedure Note | + + | Deo Silveira Results In - 11/29/2016 7:27 AM PDT EXAM: XR SHOULDER RIGHT 2 + VW | | | | HISTORY: SHOULDER PAIN | | | | TECHNIQUE: AP, Grashey, scapular Y views of the right shoulder | | | | COMPARISON: None. | | | | FINDINGS: | | | | No acute fracture or malalignment. | | | | Soft tissues are unremarkable. | | | | IMPRESSION - | | No acute fracture or malalignment. | | | | CRITICAL VALUE: No | | | | Dictated and Signed by: Eron Cortes MD | | Electronically signed: 11/29/2016 7:24 AM | + + + +---------+ + + | Performing | Address | City/State/Zipcode | Phone Number | | Organization | | | | + +---------+ + + | [facility] | | | | + +---------+ + + documented in this encounter Visit Diagnoses + + | Diagnosis | + + | Sprain of right rotator cuff capsule, initial encounter - Primary | + + documented in this encounter Administered Medications + + + + +------+------+ | Medication Order | MAR | Action | Dose | Rate | Site | | | Action | Date | | | | + + + + +------+------+ | oxyCODONE-acetaminophen | Dispense | 11/29/19 | 1 tablet | | | | (PERCOCET) 5-325 mg per tablet | to Home | 17 9:00 | | | | | (ED prepack) 1 tablet 1 tablet, | | PM PDT | | | | | Oral, ONCE, Sayra 11/28/16 at 2050, | | | | | | | For 1 dose, 1 tablet(s) every 8 | | | | | | | hours prn pain Dispense for home | | | | | | | use., | | | | | | + + + + +------+------+ +---+---+ | | | +---+---+ documented in this encounter
--- OUTSIDE RECORDS SUMMARY | ~2019-09-01 | XMS | Encounter Summary ---
Demographics + + + | Address | [address] | | | [place] [address] | + + + | Home Phone [...] | [facility] | | | and [...] | | | | | [place] [address] | | + + + + + Care Team Providers + +------+ + | Care Substation Supervisor Name | Role | Phone | + +------+ + | Hudson Nair | PCP | | | MD | | | + +------+ + Encounter Details +--------+ + + + + | Date | Type | Department | Care Team | Description | +--------+ + + + + | 07/12/ | Anti-coag | [facility] | Fuad Childs, | DVT of leg (deep | | 2013 | visit | CLINIC [address] | HAND LACER [address] | venous thrombosis) | | | | Street [place], | [place], [place] | ([facility]) (Primary Dx); | | | | [place] [address] | [address] | Monitoring for | | | | [phone] | | anticoagulant use | +--------+ + [...] encounter Progress Notes Fuad Childs ARNP - 07/12/2013 3:11 PM PSTNew warfarin schedule. Code 494Electronicall y signed by IVA Troncoso at 07/12/2013 3:11 PM PSTdocumented in this encounter Plan of Treatment Not on filedocumented as of this encounter Procedures + +--------+ + + + | Procedure Name | Priori | Date/Time | Associated Diagnosis | Comments | | | ty | | | | + +--------+ + + + | POC PT/INR | Routin | 07/12/2013 | | Results for this | | FINGERSTICK | e | | | procedure are in the | | | | | | results section. | + +--------+ + + + documented in this encounter Results POCT PT/INR fingerstick (07/12/2013) + +-------+ + + + | Component [...] + + + | INR, POC | 2.9 | | | | + +-------+ + [...]
--- OUTSIDE RECORDS SUMMARY | ~2019-09-01 | XMS | Encounter Summary ---
Demographics + + + | Address | [address] | | | [place] [address] | + + + | Home Phone | | + + + | Preferred Language | Unknown | + + + | Marital Status | | + + + | Scientologist Affiliation | Unknown | + + + | Race | Unknown | + + + | Ethnic Group | Unknown | + + + Author + + + | Author | [facility] | | | and [place] | + + + | Organization | and [facility] | | | and [place] | + + + | Address | Unknown | + + + | Phone | Unavailable | + + + Support + + + + + | Name | Relationship | Address | Phone | + + + + + | Alma Gramajo | ECON | [address] | | | | | [place] [address] | | + + + + + Care Team Providers + +------+ + | Care Bsa/Aml Compliance Officer Name | Role | Phone | + +------+ + | Priyanka Sal PA-C | PCP | | + +------+ + Encounter Details +--------+ + + + + | Date | Type | Department | Care Team | Description | +--------+ + + + + | [facility]29[facility] | Cris Gutierrez | Inguinal hernia of | | 2018 | Encounter | MED CTR ULTRASOUND | MD Kel [address] | right side without | | | | [address] [place] | [address] [place] | obstruction or | | | | [place], [place] | [place] [address] | gangrene | | | | [address] | [phone] | | | | | [phone] | | | +--------+ + + + [...]
--- OUTSIDE RECORDS SUMMARY | ~2019-09-01 | XMS | Encounter Summary ---
Demographics + + + | Address | [address] | | | [place] [address] | + + + | Home Phone [...] + | Author | [facility] | | | and [place] | + + + | Organization | [facility] [...] | | | | | [place] [address] | | + + + + + Care Team Providers + +------+ + | Care Sports Health Club Membership Advisors Name | Role | Phone | + +------+ + | Hudson Nair | PCP | | | MD | | | + +------+ + Encounter Details +--------+ + + + + | Date | Type | Department | Care Team | Description | +--------+ + + + + | 06/25/ | Hospital | [facility] | Aydee Yañez | | | 2012 | Encounter | MED CTR EMERGENCY | DO Conor Piper | | | | | CENTER [address] | [address] [place], [place] | | | | | [place], [place] | [address] | | | | | [address] | | | | | | [phone] | Ronald Louis | | | | | | MD Silverio [address] | | | | | | [address] [place] | | | | | | [place] [address] | | | | | | [phone] | | | | | | | [...] | + +--------+ + + + | VAS LOWER EXTREMITY | Routin | 06/26/2013 | | Results for this | | VENOUS RIGHT | e | 10:39 AM | | procedure are in the | | | | PDT | | results section. | + +--------+ + + + documented in this encounter Results VAS Lower Extremity Venous Right (06/26/2013 10:39 AM PDT) + + | Specimen | + + | | + + + + + | Narrative | Performed At | + + + | [facility] | [place] | | Department [address] [facility] | [facility] | | [ rep [address]] [ rep [facility] | | [facility]] Signed | - IMAGING | | | | | Patient Name: ROSARIO OCHOA | | | Physician: KIAH : 1975 Age: 38 Sex: M Unit | | | #: [id number] Exam Date: 06/25/13 Location: | | | ER Report #: [id number] Page: | | | %(RAD)RES..mtdd.print.filter("pg") of %(RAD) | | | RES..mtdd.print.filter("tpg") | | | | | | Accession Number: [id number] | | | ULTRASOUND VENOUS DUPLEX RIGHT LOWER EXTREMITY CLINICAL | | | HISTORY: RIGHT LEG AND CALF PAIN. BACK SURGERY IN . | | | COMPARISON: None. FINDINGS: Compression | | | sonography is performed from the right groin to the popliteal fossa. | | | There is compressibility of the vessels in the groin to the | | | popliteal fossa. There is phasic flow identified. There is | | | response to Valsalva in the right common femoral vein. There is | | | response to calf augmentation in the area sampled. Imaging in the | | | proximal vessels, leading to the popliteal vein, there are thrombi | | | in tibial veins. This is seen as heterogeneous material in the | | | vessel lumen and incompressibility. IMPRESSION: | | | 1. DEEP VENOUS THROMBOSIS IN TIBIAL VEINS JUST PROXIMAL | | | (TOWARD THE FOOT) TO THE BEGINNING OF THE POPLITEAL VEIN IN THE | | | RIGHT LOWER EXTREMITY. COMMENT: Preliminary findings were | | | conveyed to Dr. Louis at 1800 hours on the day of the exam. | | | Dictated Date/Time: 06/26/2013 10:39 Transcribed | | | Date/Time: 06/26/2013 13:56 Dry Color Tester: | | | <<Signature on File>> | | | Aj | Cheri Monahan MD06/28/13 1141 <Electronically signed by Aj Monahan MD> Aj Monahan MD 06/26/13 1039 | | | Dry Color Tester: [employer] Kexxcviixzyax49/26/13 9086 | | | | | + + + + + + + + | Performing | Address | City/State/Zipcode | Phone Number | | Organization | | | | + + + + + | [facility] | [address] | [place] | [phone] | | [facility] | | [address] | | | - IMAGING | | | | + + + + + documented in this encounter Visit Diagnoses Not on filedocumented in this encounter
--- OUTSIDE RECORDS SUMMARY | ~2019-09-01 | XMS | Encounter Summary ---
Demographics + + + | Address | [address] | | | [place] [address] | + + + | Home Phone | | + + + | Preferred Language | Unknown | + + + | Marital Status | | + + + | Moravian Affiliation | Unknown | + + + | Race | Unknown | + + + | Ethnic Group | Unknown | + + + Author + + + | Author | [facility] | | | and [place] | + + + | Organization | [facility] | | | and [...] | | | | | [place] [address] | | + + + + + Care Team Providers + +------+ + | Care Cutter And Presser Name | Role | Phone | + [...] + + | 02/03/ | Office | [facility] | [place] | Nephrolithiasis | | 2018 | Visit | [address] | MD [address] | (Primary Dx); Pre-op | | | | [place], [place] | [place], [place] | evaluation | | | | [address] | [address] | | | | | [phone] | | | +--------+---------+ + + + [...] February 12, 2018 at 7:45 AM at [facility]. Please report to [facility] [...] and ibuprofen is OK. Call us at [phone] with any questions. [x] Pain management booklet [...] have not thoroughly proofread this note, and shoe planner errors are very likely to occur. Past [...] UA, POC Negative Negative, 100 mg/dL Specific [place], UA, POC 1.020 1.001 - 1.030 Blood, [...]
--- OUTSIDE RECORDS SUMMARY | ~2019-09-01 | XMS | Encounter Summary ---
Demographics + + + | Address | [address] | | | [place] [address] | + + + | Home Phone [...] Organization | [facility] | | | and [...] | | | | | [place] [address] | | + + + + + Care Team Providers + +------+ + | Care Insurance Licensing Supervisor Name | Role | Phone | + +------+ + | Hudson Nair | PCP | | | | | | + +------+ + Encounter Details +--------+ + + + + | Date | Type | Department | Care Team | Description | +--------+ + + + + | 08/06/ | Hospital | [facility] | Susana Garcia | | | 2013 | Encounter | MED CTR EMERGENCY | Conner Mansfield MD [address] | | | | | [address] | [facility] | | | | | [place] | [place] [address] | | | | | [address] | [phone] | | | | | [phone] | | | +--------+ + + + [...] + | [facility] | [address] | [place], [place] | [phone] | | [facility] | | [address] | | | - LABORATORY | | | | + + + + + | [facility] | [address] | [place], [place] | | | [facility] | | [address] | | | - LABORATORY | | | | + + + + + XR Chest AP Portable (08/06/2013 11:16 AM PST) + + | Specimen | + + | | + + + + + | Narrative | Performed At | + + + | [facility] | [place] | | Department [address] [facility] | [facility] | | [ rep ct [address]] [ rep [facility] | | st zip] Signed | - IMAGING | | | | | Patient Name: ROSARIO GRAMAJO | | | Physician: ANIBAL : 1975 Age: 38 Sex: M Unit | | | #: [id number] Exam Date: 08/06/13 Location: | | | ER Report #: [id number] Page: | | | %(RAD)RES..mtdd.print.filter("pg") of %(RAD) | | | RES..mtdd.print.filter("tpg") | | | | | | Accession Number: [id number] | | | PORTABLE CHEST, 08/06/2013 CLINICAL [...] Transcribed Date/Time: 08/06/2013 | | | 11:39 Auto Top Mechanic: <<Signature | | | on File>> | | | Michael | | | Tristen Landers MD08/06/13 2910 <Electronically signed by Michael Ramon | | | Anshul LYNCH> Michael Landers MD 08/06/13 1116 | | | Auto Top Mechanic: Ana Hjhtnppqvkqdz24/06/13 1139 | | | Susana Garcia MD | | + + + + + + + + | Performing | Address | City/State/Zipcode | Phone Number | | Organization | | | | + + + + + | [facility] | [address] | [place], [place] | [phone] | | [facility] | | [address] | | | - IMAGING | | | | + + + + + CT Chest w Contrast (08/06/2013 11:08 AM PST) + + | Specimen | + + | | + + + + + | Narrative | Performed At | + + + | [facility] | [place] | | Department [address] [place] | [facility] | | [ rep ct [address]] [ rep [facility] | | st zip] Signed | - IMAGING | | | | | Patient Name: ROSARIO GRAMAJO Remington | | | Physician: ANIBAL : 1975 Age: 38 Sex: M Unit | | | #: [id number] Exam Date: 08/06/13 Location: | | | ER Report #: [id number] Page: | | | %(RAD)RES..mtdd.print.filter("pg") of %(RAD) | | | RES..mtdd.print.filter("tpg") | | | | | | Accession Number: [id number] | | | CT CHEST WITH CONTRAST [...] | | | Transcribed Date/Time: 08/06/2013 11:35 Auto Top Mechanic: | | | SSP <<Signature on File>> | | | Aj | | | Alyssa Monahan MD08/06/13 1166 <Electronically signed by Aj Shah | | | Hero LYNCH> Aj Monahan MD 08/06/13 1106 | | | Auto Top Mechanic: [employer] Gqujoofamulvd30/06/13 1135 | | | Susana Garcia MD | | + + + + + + + + | Performing | Address | City/State/Zipcode | Phone Number | | Organization | | | | + + + + + | [facility] | [address] | [place] | [phone] | | [facility] | | [address] | | | - IMAGING | | [address] | [place] | [phone] | | [facility] | | [address] | | | - LABORATORY | | | | + + + + + | [facility] | [address] | [place] | | | [facility] | | [address] | | | - LABORATORY | | [...] + | [facility] | [address] | [place] | [phone] | | [facility] | | [address] | | | - LABORATORY | | | | + + + + + | [facility] | [address] | [place] | | | [facility] | | [address] | | | - LABORATORY | | [...] + | [facility] | [address] | [place], [place] | [phone] | | [facility] | | [address] | | | - LABORATORY | | | | + + + + + | [facility] | [address] | [place], [place] | | | [facility] | | [address] | | | - LABORATORY | | [...] + | [facility] | [address] | [place] | [phone] | | [facility] | | [address] | | | - LABORATORY | | | | + + + + + | [facility] | [address] | [place] | | | [facility] | | [address] | | | - LABORATORY | | | | + + + + + documented in this encounter Visit Diagnoses Not on filedocumented in this encounter
--- OUTSIDE RECORDS SUMMARY | ~2019-09-01 | XMS | Encounter Summary ---
Demographics + + + | Address | [address] | | | [place] [address] | + + + | Home Phone | | + + + | Preferred Language | Unknown | + + + | Marital Status | | + + + | Mandaeism Affiliation | Unknown | + + + | Race | Unknown | + + + | Ethnic Group | Unknown | + + + Author + + + | Author | [facility] | | | and [place] | + + + | Organization | [facility] | | [...] | | | | | [place] [address] | | + + + + + Care Team Providers + +------+ + | Care Shipping And Receiving Specialist Name | Role | Phone | [...] [address] | [address] [place], [place] | Appointment) | | | | [place], [place] | [address] | | | | | [address] | | | | | | [phone] | | | +--------+ + + + [...]
--- OUTSIDE RECORDS SUMMARY | ~2019-09-01 | XMS | Encounter Summary ---
Demographics + + + | Address | [address] | | | [place] [address] | + + + | Home Phone [...] + | Organization | [facility] | | [...] | | | | | [place] [address] | | + + + + + Care Team Providers + +------+ + | Care Agile Developer Name | Role | Phone | [...] | | | | | | | [place] | | | | | | | [...] + + | 02/12/ | Hospital | [facility] | Satin[place] | Kidney stone | | 2018 | Encounter | MED CTR OR INTRA OP | MD Conor Lagos | | | | | [address] | [place] | | | | | [place] | [address] | | | | | [address] | | | | | | [phone] | | | +--------+ + + + [...] redness around your incision Date Last Reviewed: 10/02/201619996531-0332 [employer]. [address] [place] [address]. All righ ts reserved. This information is [...] what medicines and drugsyou take. This includes btbe-qmh-qct nter medicines, herbs, supplements, alcohol or other [...] ke ep you safe. Date Last Reviewed: 08/01/201619999462-4040 [employer]. [address] [place] [address]. All righ ts reserved. This information is [...] [facility] | | | | | | at:[phone]. | | | | + + + [...] Manuel Higgins, | REFERENCE LAB | | [place], [place] [id number] Vegetable Buncher: Adam Jacob MD, Phone: | ALVARO JORDAN | | [phone] | | + + + + + + + + | Performing | Address | City/State/Zipcode | Phone Number | | Organization | | | | + + + + + | REFERENCE LAB | [address] | [place] [address] | [phone] | | [facility] | Drive [...] ONCE PRN, Wheezing, | | | Starting [facility] 02/12/18 at 0632, | | | For 1 dose, RT will administer., | | | Pre-op | | + +---+ | | | + +---+ | albuterol 2.5 mg/3 mL nebulizer | | | solution 2.5 mg 2.5 mg, | | | Nebulization, ONCE PRN, Wheezing, | | | Starting [facility] 02/12/18 at 0840, | | | [...] DBP > 100, | | | Starting [facility] 02/12/18 at 0840, | | | Hold if HR > 100. Maximum total | | | dose 40 mg. Use labetalol first | | | if available., Recovery/Phase I | | + +---+ | | | + +---+ | HYDROmorphone (DILAUDID) | | | injection 0.2-0.5 mg 0.2-0.5 mg, | | | Intravenous, EVERY 5 MIN PRN, | | | Pain, Starting [facility] 02/12/18 at | | | 0840, [...] HOURS PRN, | | | Pain, Starting [facility] 02/12/18 at | | | 0923, [...] | mL/hr | | | CONTINUOUS, Starting [facility] 02/12/18 | | AM PDT | [...] | | | | | | Starting [facility] 02/12/18 at 0923, | | | [...]
--- OUTSIDE RECORDS SUMMARY | ~2019-09-01 | XMS | Encounter Summary ---
Demographics + + + | Address | [address] | | | [place] [address] | + + + | Home Phone [...] [facility] | | | and [place] | + + + | Organization | [facility] | | | and [place] | + + + | Address | Unknown | + + + | Phone | Unavailable | + + + Support + + + + + | Name | Relationship | Address | Phone | + + + + + | Alma Gramajo | ECON | [address] | | | | | [place] [address] | | + + + + + Care Team Providers + +------+ + | Care Tape Calender Name | Role | Phone | + [...] | visit | CLINIC [address] | CROP QUANTITATIVE GENETICIST [address] | venous thrombosis) | | | | [address] [place], | [place], [place] | ([facility]) (Primary Dx); | | | | [place] [address] | [address] | Monitoring for | | | | [phone] | | anticoagulant use | +--------+ + [...]
--- OUTSIDE RECORDS SUMMARY | ~2019-09-01 | XMS | Encounter Summary ---
Demographics + + + | Address | [address] | | | [place] [address] | + + + | Home Phone | | + + + | Preferred Language | Unknown | + + + | Marital Status | | + + + | Uatsdin Affiliation | Unknown | + + + | Race | Unknown | + + + | Ethnic Group | Unknown | + + + Author + + + | Author | [facility] | | | and [place] | + + + | Organization | [facility] | | | and [place] | + + + | Address | Unknown | + + + | Phone | Unavailable | + + + Support + + + + + | Name | Relationship | Address | Phone | + + + + + | Alma Gramajo | ECON | [address] | | | | | [place] [address] | | + + + + + Care Team Providers + +------+ + | Care Marketing Specialist Name | Role | Phone | [...] [address] | [address] [place], [place] | | | | | [place], [place] | [address] | | | | | [address] | | | | | | [phone] | | | +--------+ + + + [...]
--- OUTSIDE RECORDS SUMMARY | ~2019-09-01 | XMS | Encounter Summary ---
Demographics + + + | Address | [address] | | | [place] [address] | + + + | Home Phone [...] + | Organization | [facility] [...] | | | | | [place] [address] | | + + + + + Care Team Providers + +------+ + | Care Insurance Claims Clerk Name | Role | Phone | + +------+ + | Hudson Nair | PCP | | | MD | | | + +------+ + Reason for Visit + + + | Reason | Comments | + + + | Follow-up | 6 Month PO | + + + Encounter Details +--------+---------+ + + + | Date | Type | Department | Care Team | Description | +--------+---------+ + + + | 11/25/ | Office | [facility] | Cal Trejo, | Fusion of spine of | | 2013 | Visit | NEUROSURGERY [address] | PA-C [address] | thoracic region | | | | [address] | [place], [place] | (Primary Dx) | | | | [place], [place] | [address] | | | | | [address] | | | | | | [phone] | | | +--------+---------+ + + + [...] + + + | Blood Pressure | 131/56 | 11/25/2013 2:58 PM | | | | | PDT | | + + + + + | Pulse | 73 | 11/25/2013 2:58 PM | | | | | PDT | | + + + + + | Temperature | - | - | | + + + + + | Respiratory Rate | 18 | 11/25/2013 2:58 PM | | | | | PDT | | + + + + + | Oxygen Saturation | - | - | | + + + + + | Inhaled Oxygen | - | - | | | Concentration | | | | + + + + + | Weight | 135.2 kg (298 lb) | 11/25/2013 2:58 PM | | | | | PDT | | + + + + + | Height | 188 cm (6' 2") | 11/25/2013 2:58 PM | | | | | PDT | | + + + + + | Body Mass Index | 38.26 | 11/25/2013 2:58 PM | | | | | PDT | | + + + + + documented in this encounter Patient Instructions Patient Instructions Cal Trejo PA-C - 11/25/2013 3:03 PM PDTThoracic x-rays are s table. No need to follow up. Please continue with physical therapy. documented in this encounter Progress Notes Cal Trejo PA-C - 11/25/2013 3:00 PM PDT Cal Trejo PA-C [address] [facility] [place] [address] [place] [address] FAX: NEUROSURGERY SURGICAL FOLLOW-UP CHIEF COMPLAINT: Chief Complaint Patient presents with Follow-up 6 Month PO HISTORY OF PRESENT ILLNESS: The patient is a 38 y.o. male that had a TLIF T11-[address] Jey martin for myelopathy around 6 months ago. He returns and overall is doing fairly well. The patient says his postoperative leg weakness is much improved and continues to improve daily . He is still participating in PT 2x/week. The patient has been walking as much as possible . He is still taking pain medications at this point, but only in the evenings. The patient has had No issues with his surgical site. He did have a postoperative DVT on the right leg which has resolved and he is no longer taking any coumadin. CURRENT MEDICATIONS: Current Outpatient Prescriptions Medication Sig Dispense Refill cyclobenzaprine (FLEXERIL) 10 mg tablet gabapentin (NEURONTIN) 300 mg capsule Take 300 mg by mouth Once a week. warfarin (COUMADIN) 10 mg tablet Take 10 mg by mouth Daily. , , Fri warfarin (COUMADIN) 7.5 mg tablet Take 7.5 mg by mouth Daily. Mon, Wed, Fri, Sat ALLERGIES: No Known Allergies SOCIAL HISTORY: The patient reports that he has never smoked. He does not have any smokeless tobacco histo ry on file. INTERIM PHYSICAL EXAMINATION: Height 1.88 m (6' 2"). There is no weight on file to calculate BMI. GENERAL: Zaheer Gramajo is in no acute distress with unlabored respirations. SPINE: The patient s incisions are healing well without drainage, significant erythema, o r discharge EXTREMITIES: No lower extremity edema. NEUROLOGICAL EXAMINATION: MENTAL STATUS: The patient is awake, alert, and oriented. He follows simple and complex commands MOTOR EXAM: Motor strength is 5/5 throughout LE. This is improved from the preoperative ex am. SENSORY EXAM: The sensory examination improved from [...] clots PLAN: Overall, the patient is doing much better than his last visit. His strength has returned t o his legs. He ambulates independently most the time and uses a walker at the end of the da y. I would also like the patient to continue with postoperative rehabilitation and to advanc e with therapy as tolerated. I am hoping to see improvement over the coming weeks to months and plan to continue to foll ow this patient. I spent 30 minutes in visit with Zaheer Gramajo today with the majority of time s pent counselling the patient on his recovery and coordinating his future care. The patient will follow-up prn. 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
--- OUTSIDE RECORDS SUMMARY | ~2019-09-01 | XMS | Encounter Summary ---
Demographics + + + | Address | [address] | | | [place] [address] | + + + | Home Phone | | + + + | Preferred Language | Unknown | + + + | Marital Status | | + + + | Lutheran Affiliation | Unknown | + + + | Race | Unknown | + + + | Ethnic Group | Unknown | + + + Author + + + | Author | [facility] | | | and [place] | + + + | Organization | [facility] | | | and [...] | | | | | [place] [address] | | + + + + + Care Team Providers + +------+ + | Care Dorr Operator Name | Role | Phone | + +------+ + | Hudson Nair | PCP | | | MD | | | + +------+ + Encounter Details +--------+ + + + + | Date | Type | Department | Care Team | Description | +--------+ + + + + | 05/18/ | Orders Only | [facility] [place] | Emil Garcia, | Status post lumbar | | 2013 | | NEUROSURGERY [address] | DO [address] | spinal fusion | | | | [address] | [address] [place], [place] | (Primary Dx) | | | | [place], [place] | [address] | | | | | [address] | | | | | | [phone] | | | +--------+ + + + [...] + | MISCELLANEOUS LAB | | | [phone] | + +---------+ + + | MISCELANIOUS LAB | | | [phone] | + +---------+ + + documented in this encounter Visit Diagnoses + + | Diagnosis | + + | Status post lumbar spinal fusion - Primary Arthrodesis status | + + documented in this encounter"
--- OUTSIDE RECORDS SUMMARY | ~2019-09-01 | XMS | Encounter Summary ---
Demographics + + + | Address | [address] | | | [place] [address] | + + + | Home Phone [...] + + | Organization | [facility] | [...] | | | | | [place] [address] | | + + + + + Care Team Providers + +------+ + | Care Curriculum Writer Name | Role | Phone | + +------+ + PCP | Unavailable | + +------+ + Encounter Details +--------+ + + + + | Date | Type | Department | Care Team | Description | +--------+ + + + + | 10/12/ | Hospital | [facility] | Susana Garcia | | | 2007 | Encounter | MED CTR EMERGENCY | Conner Mansfield MD [address] | | | | | CENTER [address] | [facility] | | | | | [place] | [place] [address] | | | | | [address] | [phone] | | | | | [phone] | | | +--------+ + + + [...]
--- OUTSIDE RECORDS SUMMARY | ~2019-09-01 | XMS | Encounter Summary ---
Demographics + + + | Address | [address] | | | [place] [address] | + + + | Home Phone [...] + + | Organization | [facility] | | [...] | | | | | [place] [address] | | + + + + + Care Team Providers + +------+ + | Care Technician Helper Instrument Name | Role | Phone | + [...] | | initial | [place] | [address] | | | | | encounter | [address] | Phone: | | | | | | Phone: | [phone] | | | | | | [phone] | Fax: | | | | | | Fax: | [phone] | | | | | | [phone] | | +--------+ + + + + [...] | | | | CENTER [address] | [address] [place] | capsule, initial | | | | [place], [place] | [place] [address] | encounter (Primary | | | | [address] | [phone] | Dx) | | | | [phone] | | | +--------+ + + + [...] sent through Care Everywhere.ROTATOR CUFF TE AR (ITALIAN)SHOULDER SPRAIN (ITALIAN)documented in this encounter Medications at Time of [...]
--- OUTSIDE RECORDS SUMMARY | ~2019-09-01 | XMS | Encounter Summary ---
Demographics + + + | Address | [address] | | | [place] [address] | + + + | Home Phone | | + + + | Preferred Language | Unknown | + + + | Marital Status | | + + + | Sikhism Affiliation | Unknown | + + + | Race | Unknown | + + + | Ethnic Group | Unknown | + + + Author + + + | Author | [facility] | | | and [place] | + + + | Organization | [facility] | [...] | | | | | [place] [address] | | + + + + + Care Team Providers + +------+ + | Care Health Services Manager Name | Role | Phone | + +------+ + | Priyanka Sal PA-C | PCP | | + +------+ + Encounter Details +--------+ + + + + | Date | Type | Department | Care Team | Description | +--------+ + + + + | 09/18/ | Hospital | [facility] | Emil Garcia, | Back pain, | | 2016 | Encounter | MED CTR XRAY [address] | DO [address] | unspecified back | | | | [place] | [address] [place] | pain laterality, | | | | [place] [address] | [address] | unspecified location | | | | [phone] | | | +--------+ + + + [...] spine 08/24/2015 and lumbar spine x-ray | [facility] | | 11/25/2013 FINDINGS: Posterior [...] + + | Performing | Address | City/State[facility] | Phone Number | | Organization | | | | + + + + + | [address] | [address] | [place] | [phone] | | [facility] | | [address] | | | - IMAGING | | | | + + + + + documented in this encounter Visit Diagnoses + + | Diagnosis | + + | Back pain, unspecified back pain laterality, unspecified location | + + documented in this encounter"
--- OUTSIDE RECORDS SUMMARY | ~2019-09-01 | XMS | Encounter Summary ---
Demographics + + + | Address | [address] | | | [place] [address] | + + + | Home Phone | | + + + | Preferred Language | Unknown | + + + | Marital Status | | + + + | Worship Affiliation | Unknown | + + + | Race | Unknown | + + + | Ethnic Group | Unknown | + + + Author + + + | Author | [facility] | | | and [place] | + + + | Organization | [facility] | | | and [place] | + + + | Address | Unknown | + + + | Phone | Unavailable | + + + Support + + + + + | Name | Relationship | Address | Phone | + + + + + | Alma Gramajo | ECON | [address] | | | | | [place] [address] | | + + + + + Care Team Providers + +------+ + | Care Urinalysis Technician Name | Role | Phone | [...] | | [place] | [place] [address] | | | | | [address] | [phone] | | | | | [phone] | | | +--------+ + + + [...]
--- OUTSIDE RECORDS SUMMARY | ~2019-09-01 | XMS | Encounter Summary ---
Demographics + + + | Address | [address] | | | [place] [address] | + + + | Home Phone | | + + + | Preferred Language | Unknown | + + + | Marital Status | | + + + | Buddhism Affiliation | Unknown | + + + | Race | Unknown | + + + | Ethnic Group | Unknown | + + + Author + + + | Author | [facility] | | | and [place] | + + + | Organization | [facility] | | | and [...] | | | | | [place] [address] | | + + + + + Care Team Providers + +------+ + | Care Helicopter Specialist Name | Role | Phone | [...] [address] | [address] [place], [place] | (Primary Dx) | | | | [place], [place] | [address] | | | | | [address] | | | | | | [phone] | | | +--------+ + + + [...] + | MISCELLANEOUS LAB | | | [phone] | + +---------+ + + | MISCELANIOUS LAB | | | [phone] | + +---------+ + + documented in this encounter Visit Diagnoses + + | Diagnosis | + + | Status post lumbar spinal fusion - Primary Arthrodesis status | + + documented in this encounter"
--- OUTSIDE RECORDS SUMMARY | ~2019-09-01 | XMS | Encounter Summary ---
Demographics + + + | Address | [address] | | | [place] [address] | + + + | Home Phone [...] | Organization | [facility] | | | and [...] | | | | | [place] [address] | | + + + + + Care Team Providers + +------+ + | Care Group Sales Coordinator Name | Role | Phone | + +------+ + | Hudson Nair | PCP | | | MD | | | + +------+ + Encounter Details +--------+ + + + + | Date | Type | Department | Care Team | Description | +--------+ + + + + | 06/25/ | Hospital | [facility] | Aydee Yañez | | | 2012 | Encounter | MED CTR EMERGENCY | DO Conor Piper | | | | | CENTER [address] | [address] [place], [place] | | | | | [place] | [address] | | | | | [address] | | | | | | [phone] | Ronald Louis | | | | | | MD Silverio [address] | | | | | | [address] [place] | | | | | | [place] [address] | | | | | | [phone] | | | | | | | [...] Performed At | + + + | [facility] | [place] | | Department [address] [facility] | [facility] | | [ rep [address]] [ rep [facility] | | [facility]] Signed | - IMAGING | | | | | Patient Name: ROSARIO OCHOA | | | Physician: KIAH : 1975 Age: 38 Sex: M Unit | | | #: [id number] Exam Date: 06/25/13 Location: | | | ER Report #: [id number] Page: | | | %(RAD)RES..mtdd.print.filter("pg") of %(RAD) | | | RES..mtdd.print.filter("tpg") | | | | | | Accession Number: [id number] | | | ULTRASOUND VENOUS DUPLEX RIGHT [...] Transcribed | | | Date/Time: 06/26/2013 13:56 Hole Filler: | | | <<Signature on File>> | | | Aj | Cheri Monahan MD06/28/13 1141 <Electronically signed by Aj Monahan MD> Aj Monahan MD 06/26/13 1039 | | | Hole Filler: Murfie [id number]/26/13 2076 | | | | | + + + + + + + + | Performing | Address | City/State/Zipcode | Phone Number | | Organization | | | | + + + + + | [address] | [address] | [place] | [phone] | | [facility] | | [address] | | | - IMAGING | | | | + + + + + documented in this encounter Visit Diagnoses Not on filedocumented in this encounter
--- OUTSIDE RECORDS SUMMARY | ~2019-09-01 | XMS | Encounter Summary ---
Demographics + + + | Address | [address] | | | [place] [address] | + + + | Home Phone | | + + + | Preferred Language | Unknown | + + + | Marital Status | | + + + | Latter-Day Affiliation | Unknown | + + + | Race | Unknown | + + + | Ethnic Group | Unknown | + + + Author + + + | Author | [facility] | | | and [place] | + + + | Organization | [facility] | | | and [...] | | | | | [place] [address] | | + + + + + Care Team Providers + +------+ + | Care Lubricating Machine Tender Name | Role | Phone | + +------+ + | Hudson Nair | PCP | | | MD | | | + +------+ + Encounter Details +--------+ + + + + | Date | Type | Department | Care Team | Description | +--------+ + + + + | 11/25/ | Hospital | [facility] | Emil Garcia, | | | 2013 | Encounter | MED CTR XRAY [address] | DO [address] | | | | | [place] | [address] [place] | | | | | [place] [address] | [address] | | | | | [phone] | | | +--------+ + + + [...] + | MISCELLANEOUS LAB | | | [phone] | + +---------+ + + | MISCELANIOUS LAB | | | [phone] | + +---------+ + + documented in this encounter Visit Diagnoses Not on filedocumented in this encounter"
--- OUTSIDE RECORDS SUMMARY | ~2019-09-01 | XMS | Encounter Summary ---
Demographics + + + | Address | [address] | | | [place] [address] | + + + | Home Phone [...] | Organization | [facility] | | [...] | | | | | [place] [address] | | + + + + + Care Team Providers + +------+ + | Care Shear Tender Name | Role | Phone | [...] + + + + | 08/04/ | Telephone | [facility] [place] | Emil Garcia, | Letter for | | 2012 | | NEUROSURGERY [address] | DO [address] | School/Work | | | | [address] | [address] [place], [place] | | | | | [place], [place] | [address] | | | | | [address] | | | | | | [phone] | | | +--------+ + + + [...]
--- OUTSIDE RECORDS SUMMARY | ~2019-09-01 | XMS | Encounter Summary ---
Demographics + + + | Address | [address] | | | [place] [address] | + + + | Home Phone [...] | Organization | [facility] | | | and [...] | | | | | [place] [address] | | + + + + + Care Team Providers + +------+ + | Care Airbrush Artist Name | Role | Phone | + [...] Description | +--------+--------+ + + + | 08/17/ | Refill | [facility] [place] [facility] | Fuad Childs, | Medication Refill | | 2012 | | CLINIC [address] | GERIATRIC ASSISTANT [address] [facility] | | | | | Street [place], | [place], [place] | | | | | [place] [address] | [address] | | | | | [phone] | | | +--------+--------+ + + + [...] | Diagnosis | + + | DVT (deep venous thrombosis) (HCC) - Primary Acute venous embolism and thrombosis of | | unspecified deep vessels of lower extremity | + + documented in this encounter"
--- OUTSIDE RECORDS SUMMARY | ~2019-09-01 | XMS | Encounter Summary ---
Demographics + + + | Address | [address] | | | [place] [address] | + + + | Home Phone | | + + + | Preferred Language | Unknown | + + + | Marital Status | | + + + | Islam Affiliation | Unknown | + + + | Race | Unknown | + + + | Ethnic Group | Unknown | + + + Author + + + | Author | [facility] | | | and [place] | + + + | Organization | [facility] [...] | | | | | [place] [address] | | + + + + + Care Team Providers + +------+ + | Care Director [employer] Name | Role | Phone | + [...] | | | | obstruction | [place] [address] | [place] [address] | | | | | or gangrene | Phone: | Phone: | | | | | | [phone] | [phone] | | | | | | Fax: | Fax: | | | | | | [phone] | [phone] | +--------+ + + + + + Encounter Details +--------+---------+ + + + | Date | Type | Department | Care Team | Description | +--------+---------+ + + + | 01/24/ | Office | [facility] | Cris Gutierrez | S/P inguinal hernia | | 2019 | Visit | SURGERY [address] | MD [address] | repair (Primary Dx) | | | | [place], [place] | [address] | | | | | [address] | [place] [address] | | | | | [phone] | [phone] | | | | | | | [...] MESH; Surgeon: Cris Gutierrez MD; Loca tion: [facility] MAIN OR LUMBAR SPINE SURGERY N/A 02/05/2017 Procedure: L3-4 Extreme Lateral Interbody Fusion; Surgeon: Emil Garica DO; Location: [facility] MAIN OR LUMBAR SPINE SURGERY [address] URETEROSCOPY Left 02/12/2018 Procedure: Left Ureteroscopy, Laser Lithotripsy and Stent; Surgeon: Satinder Elizondo MD; Location: [facility] MAIN OR Allergies Allergen Reactions [...] this chart may have been created with Rkylin voice recognition software. Occasi onal wrong-word or [...]
--- OUTSIDE RECORDS SUMMARY | ~2019-09-01 | XMS | Encounter Summary ---
Demographics + + + | Address | [address] | | | [place] [address] | + + + | Home Phone [...] Organization | [facility] | | | and [place] | + + + | Address | Unknown | + + + | Phone | Unavailable | + + + Support + + + + + | Name | Relationship | Address | Phone | + + + + + | Alma Gramajo | ECON | [address] | | | | | [place] [address] | | + + + + + Care Team Providers + +------+ + | Care Technical Writer Name | Role | Phone | + +------+ + | Hudson Nair | PCP | | | MD | | | + +------+ + Encounter Details +--------+ + + + + | Date | Type | Department | Care Team | Description | +--------+ + + + + | 05/17/ | Hospital | [facility] | Emil Garcia, | | | 2012 - | Encounter | MED CTR SURGICAL | DO [address] | | | | | [address] | [place] [address] [place] | | | 05/24/ | | [place] [address] | [address] | | | 2012 | | [phone] | | | +--------+ + + + [...] Not, In System - 05/24/2013 8:10 AM [place], [place] [address] Patient Name: ROSARIO GRAMAJO Provider: Emil Garcia DO Unit #: [id number] Location: [facility] : 1975 ADMISSION DATE: 05/17/2013 DISCHARGE DATE: [...] BY: Emil Garcia DO Neurosurgery JOB #: [id number] EXT JOB #:[id number] <<Signature on File>> PACO Gonsalez 05/27/13 0649 [...] | | | | mg/dL | [facility] | | | | | | MEDICAL [...] [address] | [place] | [phone] | | [facility] | | [address] | | | - LABORATORY | | | | + + + + + | [facility] | [address] | [place] | | | [facility] | | [address] | | | - LABORATORY | | [...] + | [facility] | [address] | [place], [place] | [phone] | | [facility] | | [address] | | | - LABORATORY | | | | + + + + + | [facility] | [address] | [place] | | | [facility] | | [address] | | | - LABORATORY | | | | + + + + + XR Abdomen AP (05/21/2013 9:30 AM PDT) + + | Specimen | + + | | + + + + + | Narrative | Performed At | + + + | [facility] | [place] | | Department [address] [place] [address] | [facility] | | [ rep ct street[address]] [ rep [facility] | | [facility] [place]] Signed | - IMAGING | | | | | Patient Name: ROSARIO GRAMAJO | | | Physician: DENILSON : 1975 Age: 38 Sex: M Unit | | | #: [id number] Exam Date: 05/21/13 Location: | | | 3ES 322-1 Report #: [id number] Page: | | | %(RAD)RES..mtdd.print.filter("pg") of %(RAD) | | | RES..mtdd.print.filter("tpg") | | | | | | Accession Number: [id number] | | | ABDOMEN ONE VIEW X-RAY [...] | | | Transcribed Date/Time: 05/21/2013 09:43 [employer]: | | | 1 <<Signature on File>> | | | Michael | | | Tristen Landers MD05/23/13 1025 <Electronically signed by Michael Ramon | | | Anshul LYNCH> Michael Landers MD 05/21/13 6543 | | | Superintendent [employer]: Ana Oxgplfftxsiww52/20/13 0943 | | | | | + + + + + + + + | Performing | Address | City/State/Zipcode | Phone Number | | Organization | | | | + + + + + | [facility] | [address] | [place] | [phone] | | [facility] | | [address] | | | - IMAGING | | [...] [address] | [place] | [phone] | | [facility] | | [address] | | | - LABORATORY | | | | + + + + + | [facility] | [address] | [place] | | | [facility] | | [address] | | | - LABORATORY | | [...] + | [facility] | [address] | [place], [place] | [phone] | | [facility] | | [address] | | | - LABORATORY | | | | + + + + + | [facility] | [address] | [place], [place] | | | [facility] | | [address] | | | - LABORATORY | | | | + + + + + XR Abdomen AP (05/20/2013 9:57 AM PDT) + + | Specimen | + + | | + + + + + | Narrative | Performed At | + + + | [facility] | [place] | | Department [address] [facility] | [facility] | | [ rep pr street1+2] [ rep [facility] | | [facility]] Signed | - IMAGING | | | | | Patient Name: ROSARIO GRAMAJO | | | Physician: DENILSON : 1975 Age: 38 Sex: M Unit | | | #: [id number] Exam Date: 05/20/13 Location: | | | 4SI 454-1 Report #: [id number] Page: | | | %(RAD)RES..mtdd.print.filter("pg") of %(RAD) | | | RES..mtdd.print.filter("tpg") | | | | | | Accession Number: [id number] | | | ABDOMEN, ONE VIEW X-RAY [...] Transcribed Date/Time: | | | 05/20/2013 10:05 Superintendent [employer]: | | | <<Signature on File>> | | | Michael | | | Tristen Landers MD05/21/13 0734 <Electronically signed by Michael Ramon | | | Anshul LYNCH> Michael Landers MD 05/20/13 0957 | | | Superintendent [employer]: [employer] Usjixrtrtgspt31/19/13 1005 | | | Emil Garcia DO | | + + + + + + + + | Performing | Address | City/State/Zipcode | Phone Number | | Organization | | | | + + + + + | [facility] | [address] | [place] | [phone] | | [facility] | | [address] | | | - IMAGING | | | | + + + + + XR Abdomen AP (05/20/2013 8:31 AM PDT) + + | Specimen | + + | | + + + + + | Narrative | Performed At | + + + | [facility] | [place] | | Department [address] [place] [address] | [facility] | | [ rep ct street1+2] [ rep [facility] | | st zip] Signed | - IMAGING | | | | | Patient Name: ROSARIO GRAMAJO | | | Physician: DENILSON : 1975 Age: 38 Sex: M Unit | | | #: [id number] Exam Date: 05/19/13 Location: | | | 4SI 454-1 Report #: [id number] Page: | | | %(RAD)RES..mtdd.print.filter("pg") of %(RAD) | | | RES..mtdd.print.filter("tpg") | | | | | | Accession Number: [id number] | | | X-RAY ABDOMEN ONE VIEW [...] Transcribed Date/Time: 05/20/2013 | | | 08:42 Superintendent [employer]: <<Signature | | | on File>> | | | Michael | | | Tristen Lnaders MD05/20/13 1205 <Electronically signed by Michael Ramon | | | Anshul LYNCH> Michael Landers MD 05/20/13 0831 | | | Superintendent [employer] Well [employer]: StockLayoutsdominick Oucvfqgiazggv48/19/13 0842 | | | Emil Garcia, DO | | + + + + + + + + | Performing | Address | City/State/Zipcode | Phone Number | | Organization | | | | + + + + + | [facility] | [address] | [place] | [phone] | | [facility] | | [address] | | | - IMAGING | | | | + + + + + CT Angiogram Chest W Contrast (05/19/2013 1:22 PM PDT) + + | Specimen | + + | | + + + + + | Narrative | Performed At | + + + | [facility] | [place] | | Department [address] [place] | [facility] | | [ rep ct street1+2] [ rep ct [facility] | | st zip] Signed | - IMAGING | | | | | Patient Name: ROSARIO GRAMAJO | | | Physician: DENILSON : 1975 Age: 38 Sex: M Unit | | | #: [id number] Exam Date: 05/18/13 Location: | | | [facility] 454-1 Report #: [id number] Page: | | | %(RAD)RES..mtdd.print.filter("pg") of %(RAD) | | | RES..mtdd.print.filter("tpg") | | | | | | Accession Number: [id number] | | | CTA OF THE THORACIC [...] Transcribed | | | Date/Time: 05/18/2013 11:26 Superintendent [employer]: | | | <<Signature on File>> | | | Reynaldo | | | MD Alfredito05/19/13 8539 <Electronically signed by Reynaldo Glaser MD> | | | Reynaldo Glaser MD 05/19/13 132 Superintendent [employer]: [facility] | | | Pnhdxrlrdebau33/18/13 1322 Emil Garcia, DO | | + + + + + + + + | Performing | Address | City/State/Zipcode | Phone Number | | Organization | | | | + + + + + | [facility] | [address] | [place] | [phone] | | [facility] | | [address] | | | - IMAGING | | | | + + + + + MRI Thoracic Spine wo Contrast (05/19/2013 10:52 AM PDT) + + | Specimen | + + | | + + + + + | Narrative | Performed At | + + + | [facility] | [place] | | Department [address] [facility], [place] | [facility] | | [ rep ct street1+2] [ rep [facility] | | st zip] Signed | - IMAGING | | | | | Patient Name: ROSARIO GRAMAJO | | | Physician: DENILSON : 1975 Age: 38 Sex: M Unit | | | #: [id number] Exam Date: 05/18/13 Location: | | | [facility] 454-1 Report #: [id number] Page: | | | %(RAD)RES..mtdd.print.filter("pg") of %(RAD) | | | RES..mtdd.print.filter("tpg") | | | | | | Accession Number: [id number] | | | LUMBAR SPINE, LIMITED, WITHOUT [...] | | | Transcribed Date/Time: 05/19/2013 11:56 Superintendent [employer]: | | | <<Signature on File>> | | | Aj | | | Alyssa Monahan MD05/19/13 2849 <Electronically signed by Aj Shah | | | Hero LYNCH> Aj Monahan MD 05/19/13 1832 | | | Superintendent [employer] Well Services: [employer] Bspmmtrloaxbk96/18/13 1156 | | | Emil Garcia DO | | + + + + + + + + | Performing | Address | City/State/Zipcode | Phone Number | | Organization | | | | + + + + + | [facility] | [address] | [place] | [phone] | | [facility] | | [address] | | | - IMAGING | | | | + + + + + MRI Lumbar Spine wo Contrast Limited (05/19/2013 10:52 AM PDT) + + | Specimen | + + | | + + + + + | Narrative | Performed At | + + + | [facility] | [place] | | Department [address] [place] [address] | [facility] | | [ rep ct street1+2] [ rep [facility] | | [facility] [place]] Signed | - IMAGING | | | | | Patient Name: ROSARIO GRAMAJO | | | Physician: DENILSON : 1975 Age: 38 Sex: M Unit | | | #: [id number] Exam Date: 05/18/13 Location: | | | [address] [place], [place] [address] Report #: [id number] Page: | | | %(RAD)RES..mtdd.print.filter("pg") of %(RAD) | | | RES..mtdd.print.filter("tpg") | | | | | | Accession Number: [id number] | | | LUMBAR SPINE, LIMITED, WITHOUT [...] | | | Transcribed Date/Time: 05/19/2013 11:55 Superintendent [employer]: | | | YAMEL <<Signature on File>> | | | Aj | | | Alyssa Monahan MD05/19/13 1657 <Electronically signed by Aj Shah | | | Hero LYNCH> Aj Monahan MD 05/19/13 1052 | | | Superintendent [employer]: Ana Lzczpxlarnhbz41/18/13 1155 | | | Emil Garcia DO | | + + + + + + + + | Performing | Address | City/State/Zipcode | Phone Number | | Organization | | | | + + + + + | [facility] | [address] | [place] | [phone] | | [facility] | | [address] | | | - IMAGING | | [...] [address] | [place] | [phone] | | [facility] | | [address] | | | - LABORATORY | | | | + + + + + | [facility] | [address] | [place] | | | [facility] | | [address] | | | - LABORATORY | | [...] + | [facility] | [address] | [place] | [phone] | | [facility] | | [address] | | | - LABORATORY | | | | + + + + + | [facility] | [address] | [place] | | | [facility] | | [address] | | | - LABORATORY | | | | + + + + + Culture, MRSA (05/19/2013 12:09 AM PDT) + + | Specimen | + + | | + + + + + + + | Performing | Address | City/State/Zipcode | Phone Number | | Organization | | | | + + + + + | [facility] | [address] | [place] | [phone] | | [facility] | | [address] | | | - LABORATORY | | [...] [address] | [place] | [phone] | | [facility] | | [address] | | | - LABORATORY | | | | + + + + + | [facility] | [address] | [place], [place] | | | [facility] | | [address] | | | - LABORATORY | | | | + + + + + CT Angiogram Abdomen w Contrast (05/18/2013 11:09 AM PDT) + + | Specimen | + + | | + + + + + | Narrative | Performed At | + + + | [facility] | [place] | | Department [address], [place] | [facility] | | [ rep ct street1+2] [ rep ct [facility] | | st zip] Signed | - IMAGING | | | | | Patient Name: ROSARIO GRAMAJO | | | Physician: DENILSON : 1975 Age: 38 Sex: M Unit | | | #: [id number] Exam Date: 05/18/13 Location: | | | [facility] 316-1 Report #: [id number] Page: | | | %(RAD)RES..mtdd.print.filter("pg") of %(RAD) | | | RES..mtdd.print.filter("tpg") | | | | | | Accession Number: [id number] | | | CTA OF THE THORACIC [...] Transcribed | | | Date/Time: 05/18/2013 11:26 Superintendent [employer]: | | | <<Signature on File>> | | | Reynlado | | | MD Alfredito05/18/13 1615 <Electronically signed by Reynaldo Glaser MD> | | | Reynaldo Glaser MD 05/18/13 1109 Superintendent [employer]: [employer] | | | Gkogqonivxwgg50/17/13 1126 Emil Garcia DO | | + + + + + + + + | Performing | Address | City/State/Zipcode | Phone Number | | Organization | | | | + + + + + | [facility] | [address] | [place] | [phone] | | [facility] | | [address] | | | - IMAGING | | [...] + | [facility] | [address] | [place] | [phone] | | [facility] | | [address] | | | - LABORATORY | | | | + + + + + | [facility] | [address] | [place] | | | [facility] | | [address] | | | - LABORATORY | | [...] + | [facility] | [address] | [place], [place] | [phone] | | [facility] | | [address] | | | - LABORATORY | | | | + + + + + | [facility] | [address] | [place], [place] | | | [facility] | | [address] | | | - LABORATORY | | [...] [address] | [place] | [phone] | | [facility] | | [address] | | | - LABORATORY | | | | + + + + + | [facility] | [address] | [place] | | | [facility] | | [address] | | | - LABORATORY | | [...] + | [facility] | [address] | [place] | [phone] | | [facility] | | [address] | | | - LABORATORY | | | | + + + + + | [facility] | [address] | [place] | | | [facility] | | [address] | | | - LABORATORY | | [...] 11 | 7 - 18 mg/dL | [facility] | | | | | | [facility] | | | | | [facility] | | | | | | [facility] - | | | | | | LABORATORY | | + + + + + + | Creatinine | 0.90 | 0.60 - 1.30 | [facility] | | | | | mg/dL | [facility] | | | | | | MEDICAL | | | | | | CENTER - | | | | | | LABORATORY | | + + + + + + | Estimated | >60Comment: For | >60 mL/min/A | [facility] | | | GFR | -Americans, | [...] + | [facility] | [address] | [place] | [phone] | | [facility] | | [address] | | | - LABORATORY | | | | + + + + + | [facility] | [address] | [place] | | | [facility] | | [address] | | | - LABORATORY | | | | + + + + + documented in this encounter Visit Diagnoses Not on filedocumented in this encounter
--- OUTSIDE RECORDS SUMMARY | ~2019-09-01 | XMS | Encounter Summary ---
Demographics + + + | Address | [address] | | | [place] [address] | + + + | Home Phone [...] Organization | [facility] | | | and [place] | + + + | Address | Unknown | + + + | Phone | Unavailable | + + + Support + + + + + | Name | Relationship | Address | Phone | + + + + + | Alma Gramajo | ECON | [address] | | | | | [place] [address] | | + + + + + Care Team Providers + +------+ + | Care Nut Grinder Name | Role | Phone | + +------+ + | Hudson Nari | PCP | | | MD | | | + +------+ + Reason for Visit + + + | Reason | Comments | + + + | Letter for | | | School/Work | | + + + Encounter Details +--------+ + + + + | Date | Type | Department | Care Team | Description | +--------+ + + + + | 10/26/ | Telephone | [facility] [place] | Emil Garcia, | Letter for | | 2013 | | NEUROSURGERY [address] | DO [address] | School/Work | | | | [address] | [address] [place], [place] | | | | | [place], [place] | [address] | | | | | [address] | | | | | | [phone] | | | +--------+ + + + [...]
--- OUTSIDE RECORDS SUMMARY | ~2019-09-01 | XMS | Encounter Summary ---
Demographics + + + | Address | [address] | | | [place] [address] | + + + | Home Phone | | + + + | Preferred Language | Unknown | + + + | Marital Status | | + + + | Yazdanism Affiliation | Unknown | + + + | Race | Unknown | + + + | Ethnic Group | Unknown | + + + Author + + + | Author | [facility] | | | and [place] | + + + | Organization | [facility] | | [...] | | | | | [place] [address] | | + + + + + Care Team Providers + +------+ + | Care Cellophane Press Operator Name | Role | Phone [...] | | | | | | | [place] | | | | | | | ARTHRODESIS | | | | | | | POSTERIOR/PO | | | | | | | STEROLATERAL | | | | | | | LUMBAR [place] | | | | | | | LUMBAR SPINE | | | | | | | | | | | | | | FUSION,ANTER | | | | | | | APPRCH [place] | | | | | | | [...] + + | 02/05/ | Anesthesia | [facility] | Luis Felipe Hewitt MD | | | 2017 | Event | MED CTR OR INTRA OP | [address] | | | | | [address] | [place] | | | | | [place] | [address] | | | | | [address] | | | | | | [phone] | Mark Munguia, | | | | | | [address] | | | | | | [place] | | | | | | [address] | | | | | | | [...] +----+---+ + + | | 1 | Marathon | | | | 0 | 43-degrees | | | | 4 | | | | | 8 | | | +----+---+ + + | | 1 | First | | | | 0 | Inc/Proc St | | | | 5 | | | | | 0 | | | +----+---+ + + | | 1 | Marathon off | | | | 2 | [...] 1314 by | | | arrival to [facility]); Airway Type: | Riana Conley RN | [...] 1500 by | | eral | Forearm; gfxh-yvc-cphibm catheter | Julianne Saavedra RN | George [...]
--- OUTSIDE RECORDS SUMMARY | ~2019-09-01 | XMS | Encounter Summary ---
Demographics + + + | Address | [address] | | | [place] [address] | + + + | Home Phone | | + + + | Preferred Language | Unknown | + + + | Marital Status | | + + + | Church Affiliation | Unknown | + + + | Race | Unknown | + + + | Ethnic Group | Unknown | + + + Author + + + | Author | [facility] | | | and [place] | + + + | Organization | [facility] | [...] | | | | | [place] [address] | | + + + + + Care Team Providers + +------+ + | Care Rn Occupational Health Name | Role | Phone | + [...] + | 11/13/ | Telephone | [facility] | Emil Garcia, | Appointment | | 2017 | | NEUR[address]UR[address] | DO [address] | (Rescheduled from | | | | [address] | [address] [place], [place] | 11/26/17 to 12/01/17) | | | | [place], [place] | [id number] | | | | | [address] | | | | | | [phone] | | | +--------+ + + + [...]
--- OUTSIDE RECORDS SUMMARY | ~2019-09-01 | XMS | Encounter Summary ---
Demographics + + + | Address | [address] | | | [place] [address] | + + + | Home Phone [...] Organization | [facility] | | | and [...] | | | | | [place] [address] | | + + + + + Care Team Providers + +------+ + | Care Salvage Mechanic Name | Role | Phone | [...] + | 03/17/ | Telephone | [facility] | Emil Garcia, | Appointment; Fall | | 2016 | | NE[address]UR[address] | DO [address] | Follow-up | | | | [address] | [address] [place], [place] | | | | | [place], [place] | [address] | | | | | [address] | | | | | | [phone] | | | +--------+ + + + [...]
--- OUTSIDE RECORDS SUMMARY | ~2019-09-01 | XMS | Encounter Summary ---
Demographics + + + | Address | [address] | | | [place] [address] | + + + | Home Phone | | + + + | Preferred Language | Unknown | + + + | Marital Status | | + + + | Moravian Affiliation | Unknown | + + + | Race | Unknown | + + + | Ethnic Group | Unknown | + + + Author + + + | Author | [facility] | | | and [place] | + + + | Organization | [facility] | | [...] | | | | | [place] [address] | | + + + + + Care Team Providers + +------+ + | Care Needle Maker Name | Role | Phone | [...] [address] | | | | | [place], [place] | [place] | | | | | [address] | [address] | | | | | [phone] | | | +--------+---------+ + + + [...] from the original. Channing Blanchard PA-C [address] [facility], [address] [place] [address] FAX: NEUROSURGERY FOLLOW-UP CHIEF COMPLAINT: Chief Complaint [...] He will return to work on 06/03. [facility] pain medication should be continued and tapered [...]
--- OUTSIDE RECORDS SUMMARY | ~2019-09-01 | XMS | Encounter Summary ---
Demographics + + + | Address | [address] | | | [place] [address] | + + + | Home Phone [...] | Organization | [facility] | | [...] | | | | | [place] [address] | | + + + + + Care Team Providers + +------+ + | Care Boat Diesel Motor Mechanic Name | Role | Phone | [...] | | | | | | | [place] | | | | | | | ARTHRODESIS | | | | | | | POSTERIOR/PO | | | | | | | STEROLATERAL | | | | | | | LUMBAR [place] | | | | | | | LUMBAR SPINE | | | | | | | | | | | | | | FUSION,ANTER | | | | | | | APPRCH [place] | | | | | | | [...] + + | 02/05/ | Hospital | [facility] | Emil Garcia, | | | 2016 | Encounter | MED CTR XRAY [address] | DO [address] | | | | | [place] | [address] [place], [place] | | | | | [place] [address] | [id number] | | | | | [phone] | | | +--------+ + + + [...]
--- OUTSIDE RECORDS SUMMARY | ~2019-09-01 | XMS | Encounter Summary ---
Demographics + + + | Address | [address] | | | [place] [address] | + + + | Home Phone | | + + + | Preferred Language | Unknown | + + + | Marital Status | | + + + | Jew Affiliation | Unknown | + + + | Race | Unknown | + + + | Ethnic Group | Unknown | + + + Author + + + | Author | [facility] | | | and [place] | + + + | Organization | [facility] [...] | | | | | [place] [address] | | + + + + + Care Team Providers + +------+ + | Care Fork Truck Operator Name | Role | Phone | [...] + + | 11/27/ | Telephone | [facility] | Emil Garcia, | Appointment ([facility] | | 2018 | | NEUROSURGERY [address] | DO [address] | from 4/3 AM to PM) | | | | [address] | [address] [place], [place] | | | | | [place], [place] | [id number] | | | | | [address] | | | | | | [phone] | | | +--------+ + + + [...]
--- OUTSIDE RECORDS SUMMARY | ~2019-09-01 | XMS | Encounter Summary ---
Demographics + + + | Address | [address] | | | [place] [address] | + + + | Home Phone | | + + + | Preferred Language | Unknown | + + + | Marital Status | | + + + | Protestant Affiliation | Unknown | + + + | Race | Unknown | + + + | Ethnic Group | Unknown | + + + Author + + + | Author | [facility] | | | and [place] | + + + | Organization | [facility] | | [...] | | | | | [place] [address] | | + + + + + Care Team Providers + +------+ + | Care Roll Forming Machine Set Up Mechanic Name | Role | Phone | [...] [address] | [address] [place], [place] | | | | | [place], [place] | [address] | | | | | [address] | | | | | | [phone] | | | +--------+ + + + [...]
--- OUTSIDE RECORDS SUMMARY | ~2019-09-01 | XMS | Encounter Summary ---
Demographics + + + | Address | [address] | | | [place] [address] | + + + | Home Phone [...] | [facility] | | | [...] | | | | | [place] [address] | | + + + + + Care Team Providers + +------+ + | Care Program Project Analyst Name | Role | Phone | [...] | | | | obstruction | [place] [address] | [place] [address] | | | | | or gangrene | Phone: | Phone: | | | | | | [phone] | [phone] | | | | | | Fax: | Fax: | | | | | | [phone] | [phone] | +--------+ + + + + + Encounter Details +--------+---------+ + + + | Date | Type | Department | Care Team | Description | +--------+---------+ + + + | 07/28/ | Office | [facility] | Cris Gutierrez | Inguinal hernia of | | 2017 | Visit | SURGERY [address] | MD [address] | right side without | | | | [place], [place] | [address] [place] | obstruction or | | | | [address] | [place] [address] | gangrene (Primary | | | | [phone] | [phone] | Dx) | | | | | [...] hydronephrosis. A preliminary report was sent by [facility] with no significant discrepancy. Dictated and Signed [...] Fusion; Surgeon: Emil Garcia DO; Location: [facility] MAIN OR LUMBAR SPINE SURGERY 2013 - [facility] URETEROSCOPY Left 02/12/2018 Procedure: Left Ureteroscopy, Laser Lithotripsy and Stent; Surgeon: Satinder Elizondo MD; Location: [facility] MAIN OR Allergies: Allergies Allergen Reactions Diazepam [...] N/A Years of education: N/A Occupational History BLIND IN[employer] Social History Main Topics [...] this chart may have been created with [employer] voice recognition software. Occasi onal wrong-word or [...]
--- OUTSIDE RECORDS SUMMARY | ~2019-09-01 | XMS | Encounter Summary ---
Demographics + + + | Address | [address] | | | [place] [address] | + + + | Home Phone | | + + + | Preferred Language | Unknown | + + + | Marital Status | | + + + | Latter Day Affiliation | Unknown | + + + [...] | | | | | [place] [address] | | + + + + + Care Team Providers + +------+ + | Care Floatman Name | Role | Phone | + [...] [address] | [address] [place], [place] | | | | | [place], [place] | [address] | | | | | [address] | | | | | | [phone] | | | +--------+ + + + [...]
--- OUTSIDE RECORDS SUMMARY | ~2019-09-01 | XMS | Encounter Summary ---
Demographics + + + | Address | [address] | | | [place] [address] | + + + | Home Phone | | + + + | Preferred Language | Unknown | + + + | Marital Status | | + + + | Uatsdin Affiliation | Unknown | + + + | Race | Unknown | + + + | Ethnic Group | Unknown | + + + Author + + + | Author | [facility] | | | and Edmundo | + + + | Organization | [facility] | | | and [...] | | | | | [place] [address] | | + + + + + Care Team Providers + +------+ + | Care Systems Checkout Mechanic Name | Role | Phone | [...] | visit | CLINIC [address] | FLUME TENDER [address] | venous thrombosis) | | | | [address] [place], | [place], [place] | ([facility]) (Primary Dx); | | | | [place] [address] | [address] | Monitoring for | | | | [phone] | | anticoagulant use | +--------+ + [...]
--- OUTSIDE RECORDS SUMMARY | ~2019-09-01 | XMS | Encounter Summary ---
Demographics + + + | Address | [address] | | | [place] [address] | + + + | Home Phone [...] | Organization | [facility] [...] | | | | | [place] [address] | | + + + + + Care Team Providers + +------+ + | Care Dry House Worker Name | Role | Phone | [...] [address] [place] | | | | | [place], [place] | [place] [address] | | | | | [address] | [phone] | | | | | [phone] | | | +--------+ + + + [...]
--- OUTSIDE RECORDS SUMMARY | ~2019-09-01 | XMS | Encounter Summary ---
Demographics + + + | Address | [address] | | | [place] [address] | + + + | Home Phone [...] + | Author | [facility] | | | and Ed[place]undo | + + + | Organization | [facility] | | | and [place] | + + + | Address | Unknown | + + + | Phone | Unavailable | + + + Support + + + + + | Name | Relationship | Address | Phone | + + + + + | Alma Gramajo | ECON | [address] | | | | | [place] [address] | | + + + + + Care Team Providers + +------+ + | Care Detective Captain Name | Role | Phone | + [...] [address] | [address] [place], [place] | | | | | [place], [place] | [address] | | | | | [address] | | | | | | [phone] | | | +--------+ + + + [...]
--- OUTSIDE RECORDS SUMMARY | ~2019-09-01 | XMS | Encounter Summary ---
Demographics + + + | Address | [address] | | | [place] [address] | + + + | Home Phone [...] | Organization | [facility] [...] | | | | | [place] [address] | | + + + + + Care Team Providers + +------+ + | Care Banking Teacher Name | Role | Phone | [...] + + | 11/25/ | Office | [facility] | Cal Trejo, | Fusion of spine of | | 2013 | Visit | NEUROSURGERY [address] | PA-C [address] | thoracic region | | | | [address] | [place], [place] | (Primary Dx) | | | | [place], [place] | [address] | | | | | [address] | | | | | | [phone] | | | +--------+---------+ + + + [...] 3:00 PM PDT Cal Trejo PA-C [address] [facility], [address] [place] [address] FAX: NEUROSURGERY SURGICAL FOLLOW-UP CHIEF COMPLAINT: Chief [...]
--- OUTSIDE RECORDS SUMMARY | ~2019-09-01 | XMS | Encounter Summary ---
Demographics + + + | Address | [address] | | | [place] [address] | + + + | Home Phone [...] Organization | [facility] [...] | | | | | [place] [address] | | + + + + + Care Team Providers + +------+ + | Care Elastic Assembler Name | Role | Phone | + [...] [place] | | | | | | [address] | | | | | | [phone] | | | +--------+ + + + [...]
--- OUTSIDE RECORDS SUMMARY | ~2019-09-01 | XMS | Encounter Summary ---
Demographics + + + | Address | [address] | | | [place] [address] | + + + | Home Phone [...] [facility] | | [...] | | | | | [place] [address] | | + + + + + Care Team Providers + +------+ + | Care Glove Printer Name | Role | Phone | + [...] Lumbar | Berhane Ramon | [address] | | | | | radiculopath | [address] | [place], | | | | | y Numbness | [address] | [place] | | | | | and tingling | [address] | [address] | | | | | of left leg | [place], | Phone: | | | | | Left leg | [place] [address] | [phone] | | | | | weakness | Phone: | Fax: | | | | | Procedures | [phone] | [phone] | | | | | MRI Lumbar | Fax: | | | | | | Spine wo | [phone] | | | | | | Contrast [...] + + | 12/02/ | Office | [facility] | Berhane Chavez, | Lumbar radiculopathy | | 2018 | Visit | NEUROSURGERY [address] | PA-C [address] | (Primary Dx); | | | | [address] | [address] [place] | Numbness and | | | | [place], [place] | [place] [address] | tingling of left | | | | [address] | [phone] | leg; Left leg | | | | [phone] | | weakness | +--------+---------+ + + [...] encounter Patient Instructions Patient Instructions Kiesha Haque, Portrait Photographer - 12/02/2017 2:30 PM PDTIt was a [...] [facility], [address] [place], [place] [address] FAX: NEUROSURGERY FOLLOW-UP CHIEF COMPLAINT: Chief Complaint [...] has no apparent deficits with short or chcf memory. CRANIAL NERVES: Fundoscopic Exam: The optic [...] Intrinsics 5 5 Ulnar Intrinsics 5 5 Family And Consumer Education Teacher Strength 5 5 Hip Flexion 4- 5 [...] an increase in symptoms and he returned [employer] to work in June. His symptoms have [...]
--- OUTSIDE RECORDS SUMMARY | ~2019-09-01 | XMS | Encounter Summary ---
Demographics + + + | Address | [address] | | | [place] [address] | + + + | Home Phone | | + + + | Preferred Language | Unknown | + + + | Marital Status | | + + + | Islam Affiliation | Unknown | + + + | Race | Unknown | + + + | Ethnic Group | Unknown | + + + Author + + + | Author | [facility] | | | and Ed[place]undo | + + + | Organization | [facility] | | | [...] | | | | | [place] [address] | | + + + + + Care Team Providers + +------+ + | Care Grease Man Name | Role | Phone | [...] of | Berhane Ramon, | [address] | | | | | spine of | [address] | [place], | | | | | thoracic | [address] | [place] | | | | | region | [address] | [address] | | | | | Spondylolist | [place], | Phone: | | | | | hesis of | [place] [address] | [phone] | | | | | lumbar | Phone: | Fax: | | | | | region | [phone] | [phone] | | | | | Myelopathy | Fax: | | | | | | ([facility]) | [phone] | | | | | | Procedures [...] of | Berhane E, | [address] | | | | | spine of | PA-C [address] | [place], | | | | | thoracic | [address] | [place] | | | | | region | [address] | [address] | | | | | Spondylolist | [place], | Phone: | | | | | hesis of | [place] [address] | [phone] | | | | | lumbar | Phone: | Fax: | | | | | region | [phone] | [phone] | | | | | Myelopathy | Fax: | | | | | | ([facility]) | [phone] | | | | | | Procedures [...] + + | 04/16/ | Hospital | [facility] | Berhane Chavez, | Fusion of spine of | | 2016 | Encounter | MED CTR MRI [address] | PA-C [address] | thoracic region; | | | | [place], | [address] [place] | Spondylolisthesis [place] | | | | [place] [address] | [place] [address] | lumbar region; | | | | [phone] | [phone] | Myelopathy (HCC) | | | | [...] spine fusion with new radicular symptoms | [facility] | | and myelopathy COMPARISON: 05/18/2013, CT lumbar spine 08/24/2015 | [facility] | | and MRI thoracic spine [...] | Performing | Address | City/State/[facility] | Phone Number | | Organization | | | | + + + + + | [facility] | [address] | [place] | [phone] | | [facility] | | [address] | | | - IMAGING | | [...]
--- OUTSIDE RECORDS SUMMARY | ~2019-09-01 | XMS | Encounter Summary ---
Demographics + + + | Address | [address] | | | [place] [address] | + + + | Home Phone | | + + + | Preferred Language | Unknown | + + + | Marital Status | | + + + | Amish Affiliation | Unknown | + + + | Race | Unknown | + + + | Ethnic Group | Unknown | + + + Author + + + | Author | [facility] | | | and [place] | + + + | Organization | [facility] | | [...] | | | | | [place] [address] | | + + + + + Care Team Providers + +------+ + | Care Emr Trainer Name | Role | Phone | + [...] | | | | CENTER [address] | [facility] [place] | | | | | [place], [place] | [place] [address] | | | | | [address] | [phone] | | | | | [phone] | | | | | | | Chris Steve | | | | | | MD Uday [address] | | | | | | [address] [place] | | | | | | [place] [address] | | | | | | [phone] | | | | | | | [...] | | | (CLEOCIN) 300 MG | prison between each | capsule | | 15 [...]
--- OUTSIDE RECORDS SUMMARY | ~2019-09-01 | XMS | Encounter Summary ---
Demographics + + + | Address | [address] | | | [place] [address] | + + + | Home Phone [...] Organization | [facility] | | | and [...] | | | | | [place] [address] | | + + + + + Care Team Providers + +------+ + | Care Noodle Catalyst Maker Name | Role | Phone | [...] [address] | [address] [place], [place] | | | | | [place], [place] | [address] | | | | | [address] | | | | | | [phone] | | | +--------+ + + + [...]
--- OUTSIDE RECORDS SUMMARY | ~2019-09-01 | XMS | Encounter Summary ---
Demographics + + + | Address | [address] | | | [place] [address] | + + + | Home Phone | | + + + | Preferred Language | Unknown | + + + | Marital Status | | + + + | Mandaen Affiliation | Unknown | + + + | Race | Unknown | + + + | Ethnic Group | Unknown | + + + Author + + + | Author | [facility] | | | and [place] | + + + | Organization | [facility] | | [...] | | | | | [place] [address] | | + + + + + Care Team Providers + +------+ + | Care Dog Hair Clipper Name | Role | Phone | + +------+ + | Priyanka Sal PA-C | PCP | | + +------+ + Encounter Details +--------+ + + + + | Date | Type | Department | Care Team | Description | +--------+ + + + + | 01/22/ | Emergency | [facility] | Ronald Louis | Foot infection | | 2015 | | MED CTR EMERGENCY | MD Silverio [address] | (Primary Dx) | | | | CENTER [address] | [address] | | | | | [place] | [place] [address] | | | | | [address] | [phone] | | | | | [phone] | | | +--------+ + + + [...]
--- OUTSIDE RECORDS SUMMARY | ~2019-09-01 | XMS | Encounter Summary ---
Demographics + + + | Address | [address] | | | [place] [address] | + + + | Home Phone [...] + | Organization | [facility] | | | and [place] | + + + | Address | Unknown | + + + | Phone | Unavailable | + + + Support + + + + + | Name | Relationship | Address | Phone | + + + + + | Alma Gramajo | ECON | [address] | | | | | [place] [address] | | + + + + + Care Team Providers + +------+ + | Care Commissary Representative Name | Role | Phone | + [...] of | Berhane Ramon, | [address] | | | | | spine of | [address] | [place], | | | | | thoracic | [address] | [place] | | | | | region | [address] | [address] | | | | | Spondylolist | [place], | Phone: | | | | | hesis of | [place] [address] | [phone] | | | | | lumbar | Phone: | Fax: | | | | | region | [phone] | [phone] | | | | | Myelopathy | Fax: | | | | | | ([facility]) | [phone] | | | | | | Procedures [...] of | Berhane E, | [address] | | | | | spine of | PA-C [address] | [place], | | | | | thoracic | [address] | [place] | | | | | region | [address] | [address] | | | | | Spondylolist | [place], | Phone: | | | | | hesis of | [place] [address] | [phone] | | | | | lumbar | Phone: | Fax: | | | | | region | [phone] | [phone] | | | | | Myelopathy | Fax: | | | | | | ([facility]) | [phone] | | | | | | Procedures [...] + + | 04/16/ | Hospital | [facility] | Berhane Chavez, | Fusion of spine of | | 2016 | Encounter | MED CTR MRI [address] | PA-C [address] | thoracic region; | | | | [place], | [address] [place] | Spondylolisthesis [place] | | | | [place] [address] | [place] [address] | lumbar region; | | | | [phone] | [phone] | Myelopathy (HCC) | | | | [...] COMPARISON: 05/18/2013, chest CT 08/06/2013 and | [facility] | | lumbar CT 08/24/2015 TECHNIQUE: [...] [address] | [place] | [phone] | | [facility] | | [address] | | | - IMAGING | | [...]
--- OUTSIDE RECORDS SUMMARY | ~2019-09-01 | XMS | Encounter Summary ---
Demographics + + + | Address | [address] | | | [place] [address] | + + + | Home Phone [...] | | | | | [place] [address] | | + + + + + Care Team Providers + +------+ + | Care Business Coordinator Name | Role | Phone | [...] | Lumbar | Mai, | [address] | | | | | radiculopath | Adán Shah MD | [place], | | | | | y | [address] | [place] | | | | | Procedures | [place] | [address] | | | | | [place] INJECT | [place], [place] | Phone: | | | | | ANES/STEROID | [address] | [phone] | | | | | FORAMEN | Phone: | Fax: | | | | | LUMBAR/SACRA | [phone] | [phone] | | | | | L W IMG | Fax: | | | | | | GUIDE ,1 | [phone] | | | | | | [place]EL [place] | | | | | | [...] + + | 07/08/ | Hospital | [facility] | Cici, | Spinal stenosis of | | 2018 | Encounter | MED CTR XRAY [address] | [address] | lumbar region with | | | | [place] | [address] [place], | neurogenic | | | | [place] [address] | [place] [address] | claudication; Lumbar | | | | [phone] | [phone] | radiculopathy; | | | | | | History of lumbar | | | | | Plant Protection SuperintendentYuri | fusion | +--------+ + + + [...]
--- OUTSIDE RECORDS SUMMARY | ~2019-09-01 | XMS | Encounter Summary ---
Demographics + + + | Address | [address] | | | [place] [address] | + + + | Home Phone | | + + + | Preferred Language | Unknown | + + + | Marital Status | | + + + | Quaker Affiliation | Unknown | + + + | Race | Unknown | + + + | Ethnic Group | Unknown | + + + Author + + + | Author | [facility] | | | and Ed[place]undo | + + + | Organization | [facility] | [...] | | | | | [place] [address] | | + + + + + Care Team Providers + +------+ + | Care Rental Car Ferry Driver Name | Role | Phone | + +------+ + | Hudson Nair | PCP | | | MD | | | + +------+ + Encounter Details +--------+ + + + + | Date | Type | Department | Care Team | Description | +--------+ + + + + | 07/19/ | Hospital | [facility] | Emil Garcia, | Status post lumbar | | 2012 | Encounter | MED CTR XRAY [address] | DO [address] | spinal fusion | | | | [place] | [address] [place] | | | | | [place] [address] | [address] | | | | | [phone] | | | +--------+ + + + [...] + | MISCELLANEOUS LAB | | | [phone] | + +---------+ + + | MISCELANIOUS LAB | | | [phone] | + +---------+ + + XR Thoracic Spine 2 Vw (07/19/2013 11:01 AM PST) + + | Specimen | + + | | + + + + + | Narrative | Performed At | + + + | [facility] | [place] | | Department [address] , [place] | [facility] | | [ rep ct [address]] [ rep ct [facility] | | st zip] Signed | - IMAGING | | | | | Patient Name: ROSARIO OCHOA | | | Physician: DENILSON : 1975 Age: 38 Sex: M Unit | | | #: [id number] Exam Date: 07/19/13 Location: | | | [facility] Report #: [id number] Page: | | | %(RAD)RES..mtdd.print.filter("pg") of %(RAD) | | | RES..mtdd.print.filter("tpg") | | | | | | Accession Number: [id number] | | | TWO VIEWS OF THORACIC [...] Transcribed Date/Time: 07/19/2013 14:38 | | | Revenue Specialist: ROSALIA <<Signature on File>> | | | Juan | | | Theo Ramires MD07/19/13 3037 <Electronically signed by Juan Ramires | | | > Juan Ramires MD 07/19/13 1101 Revenue Specialist: | | | [employer] Sksprrlzrzbee09/18/13 0517 Emil Garcia, DO | | | | | + + + + + + + + | Performing | Address | City/State/Zipcode | Phone Number | | Organization | | | | + + + + + | [facility] | [address] | [place] | [phone] | | [facility] | | [address] | | | - IMAGING | | | | + + + + + documented in this encounter Visit Diagnoses + + | Diagnosis | + + | Status post lumbar spinal fusion Arthrodesis status | + + documented in this encounter
--- OUTSIDE RECORDS SUMMARY | ~2019-09-01 | XMS | Encounter Summary ---
Demographics + + + | Address | [address] | | | [place] [address] | + + + | Home Phone [...] Organization | [facility] [...] | | | | | [place] [address] | | + + + + + Care Team Providers + +------+ + | Care Consultant Intern Name | Role | Phone | + [...] [address] | [address] [place], [place] | | | | | [place], [place] | [address] | | | | | [address] | | | | | | [phone] | | | +--------+ + + + [...]
--- OUTSIDE RECORDS SUMMARY | ~2019-09-01 | XMS | Encounter Summary ---
Demographics + + + | Address | [address] | | | [place] [address] | + + + | Home Phone [...] Organization | [facility] | | | [...] | | | | | [place] [address] | | + + + + + Care Team Providers + +------+ + | Care Inspector Process Name | Role | Phone | + [...] 2012 | | CLINIC [address] | [address]AT FLANG[address] [facility] | | | | | Street [place], | [place], [place] | | | | | [place] [address] | [address] | | | | | [phone] | | | +--------+--------+ + + + [...]
--- OUTSIDE RECORDS SUMMARY | ~2019-09-01 | XMS | Encounter Summary ---
Demographics + + + | Address | [address] | | | [place] [address] | + + + | Home Phone [...] Organization | [facility] | [...] | | | | | [place] [address] | | + + + + + Care Team Providers + +------+ + | Care Carpenter Cradle And Dolly Name | Role | Phone | + [...] | | | | | | | [place] | | | | | | | [...] Lithotripsy | | | | [address] | [address] [place] | and Stent | | | | [place] | [address] | | | | | [address] | | | | | | [phone] | | | +--------+---------+ + + + [...] redness around your incision Date Last Reviewed: 10/02/201619997427-2327 [employer]. [address] [place] [address]. All righ ts reserved. This information is [...] what medicines and drugsyou take. This includes ayig-qsy-rkw nter medicines, herbs, supplements, alcohol or other [...] 24 hours after surgery, have a trusted [facility] member or spouse act on your behalf. Avoid alcohol. Havea responsible adultstay with you.He or shecan watch for problems and help ke ep you safe. Date Last Reviewed: 08/01/201619990116-4867 [employer]. [address] [place] [address], [place] [address]. All righ ts reserved. This information is [...] [facility] | | | | | | at:[phone]. | | | | + + + [...] Manuel Higgins, | REFERENCE LAB | | [place], [place] [id number] Manager Registration: Adam Jacob MD, Phone: | STEPHANIERP - JULIAN | | [phone] | | + + + + + + + + | Performing | Address | City/State/Zipcode | Phone Number | | Organization | | | | + + + + + | REFERENCE LAB | [address] | [place] [address] | [phone] | | [facility] | Drive [...] ONCE PRN, Wheezing, | | | Starting [facility] 02/12/18 at 0632, | | | For 1 dose, RT will administer., | | | Pre-op | | + +---+ | | | + +---+ | albuterol 2.5 mg/3 mL nebulizer | | | solution 2.5 mg 2.5 mg, | | | Nebulization, ONCE PRN, Wheezing, | | | Starting [facility] 02/12/18 at 0840, | | | [...] | mL/hr | | | CONTINUOUS, Starting [facility] 02/12/18 | | AM PDT | [...] | | | | | | Starting [facility] 02/12/18 at 0923, | | | [...]
--- OUTSIDE RECORDS SUMMARY | ~2019-09-01 | XMS | Encounter Summary ---
Demographics + + + | Address | [address] | | | [place] [address] | + + + | Home Phone [...] Organization | [facility] | | | and [...] | | | | | [place] [address] | | + + + + + Care Team Providers + +------+ + | Care Tool Procurement Coordinator Name | Role | Phone | [...] + + | 06/25/ | Office | [facility] | Emil Garcia, | Osteoarthritis of | | 2016 | Visit | NEUROSURGERY [address] | DO [address] | spine with | | | | [address] | [address] [place], [place] | radiculopathy, | | | | [place], [place] | [address] | lumbar region | | | | [phone] | | (Primary Dx); Lumbar | | | | [phone] | | stenosis; Lumbar | | | [...] you are not leaning toward the st [employer] wheel. A small pillow or rolled towel [...] or legs Numbness in the groin area [phone] [employer]. [address] [place] [address], [place] [address]. All righ ts reserved. This information is not intended as a substitute for professional medical care. Always follow your healthcare professional's instructions. documented in this encounter Progress Notes Emil Garcia DO - 06/25/2016 1:31 PM PDTFormatting of this note might be different fro m the original. Emil Garcia DO [address] [facility], [address] [place] [address] FAX: NEUROSURGERY FOLLOW-UP CHIEF COMPLAINT: Chief Complaint Patient presents with Follow-up Discuss Surgery HISTORY OF PRESENT ILLNESS: The patient is a 41 y.o. male who presets in follow-up for his back and leg symptoms. This is following a injury he sustained at work. In August 2015 w joe he was lifting a box at his job at the [employer]. While lifting this box and t wisting [...] no apparent deficits with short or long chain beamer memory. CRANIAL NERVES: Fundoscopic Exam: The optic [...] Intrinsics 5 5 Ulnar Intrinsics 5 5 Division Service Manager Strength 5 5 Hip Flexion 4 5 [...]
[~2019-09-01 15:16] MED LIST changes: +FLOMAX0.4 MG PO; +PERCOCET 5-3251 EACH PO
--- OUTSIDE RECORDS SUMMARY | 2019-09-01 15:20 | XMS ---
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 Care History Medical/Surgical 02/11/2019 [facility] CONTACTED UROLOGIST- DR [place] OFFICE ABOUT PATIENT ED VISIT. ED NOTES PROVIDED. ECindy VISIT COUNT (12 MO.) 2 [facility] TOTAL 2 NOTE: Visits indicate total known visits. 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
== END 2019-09-01 18:36 | disposition home or self-care (01) ==
LOC: ED 15:16
DX: G43.909 Migraine, unspecified, not intractable, without status migrainosus (principal); Z88.8 Allergy status to other drugs, medicaments and biological substances; Z79.899 Other long term (current) drug therapy
CPT/HCPCS: 70450; 70496; 80048; 85025; 96361; 99284-25; J1100; J1885; J3475; J7030; Q9967

== ENCOUNTER 2021-08-30 17:38 | Emergency (ER) | payer OTHER, BC ==
[~2021-08-30] VITALS: Ht 188 cm; Wt 131.5 kg
[2021-08-30] MEDS ORDERED: FENOFIBRATE145 MG PO (19:15)
[2021-08-30] MEDS ORDERED: ATORVASTATIN CA40 MG PO (19:15)
[2021-08-30] MEDS ORDERED: METFORMIN HCL500 M1 PO (19:15)
[2021-08-30] MEDS ORDERED: VITAMIN D21250 MCG PO (19:16)
[2021-08-30] MEDS ORDERED: CO Q-10100 MG PO (19:16)
[2021-08-30] MEDS ORDERED: HYDROCODON-ACE1 EA10 PO (19:52)
== END 2021-08-30 20:47 | disposition home or self-care (01) ==
LOC: ED 17:38
DX: S82.832A Other fracture of upper and lower end of left fibula, initial encounter for closed fracture (principal); W00.0XXA Fall on same level due to ice and snow, initial encounter; Z88.8 Allergy status to other drugs, medicaments and biological substances; Z79.899 Other long term (current) drug therapy; Z79.84 Long term (current) use of oral hypoglycemic drugs
CPT/HCPCS: 73560; 73610; 99283-25

== ENCOUNTER 2021-09-14 08:45 | Day surgery (SDC) | payer BC ==
[~2021-09-14] VITALS: Ht 188 cm; Wt 145.0 kg
--- NOTE | ~2021-09-14 | OR ---
[facility] [address] [place], [place] [address] Draft DATE OF OPERATION: 09/14/2021 SURGEON: Agnieszka Emery MD PREOPERATIVE DIAGNOSIS: Left lateral malleolus fracture. POSTOPERATIVE DIAGNOSIS: Left lateral malleolus fracture. PROCEDURE PERFORMED: Open reduction and internal fixation of left ankle. CARGO CHECKER: None. ANESTHESIA: General. BLOOD LOSS: None. TOURNIQUET TIME: 33 minutes. IMPLANTS: 3.8 x 130 FibuLock with three distal locking screws. BRIEF HISTORY: Zaheer is a 46-year-old gentleman with hemiplegia on the right side. He fell and fractured his left ankle and was having difficulty ambulating. The fracture was minimally displaced, however, with internal fixation, he would be able to put some weight on it in the boot. Risks and benefits of operative treatment were discussed with him. He elected to proceed. DESCRIPTION OF PROCEDURE: Once consent was obtained, he was taken to the operating room. After adequate anesthesia, he was placed on the operating room table on the hip bump. The leg was then prepped and draped in a standard sterile fashion after placing a well-padded proximal thigh tourniquet. The leg was exsanguinated using Esmarch bandage. Tourniquet inflated PATIENT NAME: ZAHEER OCHOA OPERATIVE REPORT DATE OF : 75 REPORT #: [id number] PHYSICIAN: AGNIESZKA EMERY MD PCP: JUSTIN GIORDANO REPORT IS CONFIDENTIAL AND NOT TO BE RELEASED WITHOUT AUTHORIZATION [facility] [address] [place], [place] [address] Draft to 275 mmHg. The fibula was then marked out using the C-arm and a 1 inch incision was made distal to the tip. Blunt dissection was taken down to the tip. At first, guidewire was then advanced from the tip of the fibula across the fracture into the body of the fibula proximally. The position of guidewire was checked on biplanar fluoroscopy. The distal large reamer was then used followed by replacement with a long guidewire. We then reamed it from 3 up to 4 and felt 3.8 would fit well. A 3.8 x 130 FibuLock was then advanced from the tip of the fibula into the body of the femur proximally. The proximal fins were then deployed with excellent purchase. The three distal locking screws were then percutaneously placed through separate stab incisions. This was checked again using biplanar fluoroscopy. The was then removed. Final radiographs showed good reduction of the fracture which had been percutaneously reduced and held with at the beginning of the procedure. The tenaculum was removed and the wounds were cleansed using normal saline and closed with nancie. The wounds were dressed with an Allevyn dressing, ABD and Bharat wrap. He was placed in his fracture boot and taken to the recovery room in satisfactory condition. All sponge, needle, and instrument counts were correct. Agnieszka Emery MD BA/BRODERICKL /[id number] Copies: ~ PATIENT NAME: ZAHEER OCHOA OPERATIVE REPORT DATE OF : 75 REPORT #: [id number] PHYSICIAN: AGNIESZKA EMERY MD PCP: JUSTIN GIORDANO REPORT IS CONFIDENTIAL AND NOT TO BE RELEASED WITHOUT AUTHORIZATION
[~2021-09-14 08:45] MED LIST changes: +ATORVASTATIN CA40 MG PO; +CO Q-10100 MG PO; +FENOFIBRATE145 MG PO; +HYDROCODON-ACE1 EA10 PO; +MAG-OXIDE400 MG PO; +METFORMIN HCL500 M1 PO; +VITAMIN D21250 MCG PO
[2021-09-14] MEDS ORDERED: HYDROCODON-ACE1 EA11 PO (10:26)
[2021-09-14] MEDS ORDERED: CELECOXIB200 MG PO (10:26)
--- NOTE | 2021-09-14 10:29 | NUR ---
09/14/21 Arron9 Carmella Self 1025- PT ARRIVES TO PACU NONAROUSABLE TO NOXIOUS STIMULI. PT NEEDING A JAW LIFT TO MAINTAIN PATENT AIRWAY PT SNORES LOUDLY WHEN THIS IS NOT BEING DONE. RESP 22-26 BPM. OXYGEN SAT HIGH 90'S ON 10L VIA MASK.
== END 2021-09-14 12:25 | disposition home or self-care (01) ==
LOC: DS 08:45
PROVIDERS: ATTEND Specialist
PROC: 0QSK04Z Reposition Left Fibula with Internal Fixation Device, Open Approach (ICD-10-PCS; principal; 2021-09-14 09:00)
DX: S82.62XA Displaced fracture of lateral malleolus of left fibula, initial encounter for closed fracture (principal); W00.0XXA Fall on same level due to ice and snow, initial encounter; G89.18 Other acute postprocedural pain
CPT/HCPCS: 73600; J0690; J1100; J1885; J2250; J2405; J2795; J3010; J7121

== ENCOUNTER 2022-06-18 23:22 | Emergency (ER) | payer BC ==
[~2022-06-18] VITALS: Ht 188 cm; Wt 145.6 kg
[~2022-06-18 23:22] MED LIST changes: +CELECOXIB200 MG PO; +GABAPENTIN300 MG PO; +HYDROCODON-ACE1 EA11 PO; +LIDODERM1 EACH TOP
--- OUTSIDE RECORDS SUMMARY | 2022-06-18 23:24 | XMS ---
PreManage Notification: ROSARIO OCHOA Security Account Information Clerk Events No recent Security Events currently on file CR[facility]IA MET - [facility] There are no care providers on record at this time. Miley has no Care Guidelines for this patient. Care History Medical/Surgical 02/11/2019 [facility] - W CONTACTED UROLOGIST- DR WALLS OFFICE ABOUT PATIENT ED VISIT. ED NOTES PROVIDED. E.D. VISIT COUNT (12 MO.) 3 [facility] Leonid TOTAL 3 NOTE: Visits indicate total known visits. ED/UCC VISIT TRACKING (12 MO.) [facility] [place] [facility] COMPLAINT: - LEFT HAND INJ 03/20/2022 13:09 [facility] [place] TYPE: Emergency COMPLAINT: - FLANK PAIN DIAGNOSES: - Low back pain, unspecified - Allergy status to other drugs, medicaments and biological substances - Other senior agricultural assistant (current) drug therapy - land planner (current) use of oral hypoglycemic drugs - Personal history of urinary calculi - Unspecified abdominal pain - Weakness - Anesthesia of skin 08/30/2021 17:39 [facility] [place] TYPE: Emergency COMPLAINT: - LT LEG PAIN DIAGNOSES: - Allergy status to other drugs, medicaments and biological substances - Pain in left ankle and joints of left foot - Other senior agricultural assistant (current) drug therapy - Fall on same level due to ice and snow, initial encounter - intermediate (current) use of oral hypoglycemic drugs - Other fracture of upper and lower end of left fibula, initial encounter for closed fracture INPATIENT VISIT TRACKING (12 MO.) No inpatient visits to display in this time frame [email or web address]
[2022-06-19] MEDS ORDERED: HYDROCODON-ACE1 EA10 PO (00:04)
== END 2022-06-19 00:24 | disposition home or self-care (01) ==
LOC: ED 23:22
DX: S63.105A Unspecified dislocation of left thumb, initial encounter (principal); E66.9 Obesity, unspecified; Z88.5 Allergy status to narcotic agent; Z79.899 Other long term (current) drug therapy; W19.XXXA Unspecified fall, initial encounter
CPT/HCPCS: 73130; 73140; A9270; J1885

== ENCOUNTER 2022-09-09 17:18 | Emergency (ER) | payer BC ==
[~2022-09-09] VITALS: Ht 188 cm; Wt 148.2 kg
--- OUTSIDE RECORDS SUMMARY | 2022-09-09 17:20 | XMS ---
PreManage Notification: ROSARIO OCHOA Security Sand Miller Events No recent Security Events currently on file [facility] There are no care providers on record at this time. Miley has no Care Guidelines for this patient. Care History Medical/Surgical 02/11/2019 [facility] - W CONTACTED UROLOGIST- DR WALLS OFFICE ABOUT PATIENT ED VISIT. ED NOTES PROVIDED. E.Silvia VISIT COUNT (12 MO.) 1 [facility] 3 [facility]. TOTAL 4 NOTE: Visits indicate total known visits. ED/UCC VISIT TRACKING (12 MO.) 09/09/2022 17:18 [facility] [place] TYPE: Emergency COMPLAINT: - FALL [facility]22 [facility] [place] [facility] DIAGNOSES: - Leg Pain (Non-traumatic) - Numbness - Other symptoms and signs involving the musculoskeletal system - Leg weakness 06/18/2022 23:23 [facility] [place] TYPE: Emergency COMPLAINT: - LEFT HAND INJ DIAGNOSES: - Allergy status to narcotic agent - Other senior care (current) drug therapy - Obesity, unspecified - Unspecified fall, initial encounter - Unspecified dislocation of left thumb, initial encounter - Pain in left finger(s) 03/20/2022 13:09 [facility] [place] TYPE: Emergency COMPLAINT: - FLANK PAIN DIAGNOSES: - Other senior care (current) drug therapy - senior care (current) use of oral hypoglycemic drugs - Personal history of urinary calculi - Unspecified abdominal pain - Weakness - Anesthesia of skin - Low back pain, unspecified - Allergy status to other drugs, medicaments and biological substances INPATIENT VISIT TRACKING (12 MO.) No inpatient visits to display in this time frame [email or web address]
[2022-09-09] MEDS ORDERED: HYDROCODON-ACE1 EA10 PO (22:31)
== END 2022-09-09 23:02 | disposition home or self-care (01) ==
LOC: ED 17:18
DX: S30.1XXA Contusion of abdominal wall, initial encounter (principal); Z88.8 Allergy status to other drugs, medicaments and biological substances; Z79.899 Other long term (current) drug therapy; W19.XXXA Unspecified fall, initial encounter
CPT/HCPCS: 36415; 71260; 73110; 74177; 80053; 85025; 86850; 86900; 86901; 99284-25; A9270; Q9967

== ENCOUNTER 2023-07-14 17:07 | Emergency (ER) | payer BC ==
[~2023-07-14] VITALS: Ht 188 cm; Wt 155.2 kg
[~2023-07-14 17:07] MED LIST changes: +CEFDINIR300 MG PO
--- OUTSIDE RECORDS SUMMARY | 2023-07-14 17:10 | XMS ---
PreManage Notification: ROSARIO OCHOA Security Porcelain Enamel Laborer Events No recent Security Events currently on file CRITERIA MET - PDM - [facility] - 2 Visits in 30 Days CARE PROVIDERS There are no care providers on record at this time. Miley has no Care Guidelines for this patient. Care History Medical/Surgical 02/11/2019 [facility] - CHW CONTACTED UROLOGIST- DR WALLS OFFICE ABOUT PATIENT ED VISIT. ED NOTES PROVIDED. E.Silvia VISIT COUNT (12 MO.) 3 [address] (Mare [place]) TOTAL 4 NOTE: Visits indicate total known visits. ED/UCC VISIT TRACKING (12 MO.) 07/14/2023 17:08 [facility] [place] [facility] Emergency COMPLAINT: - ABDOMINAL PAIN 06/21/2023 07:28 [facility] [place] [facility] Emergency COMPLAINT: - ABDOMINAL PAIN DIAGNOSES: - Allergy status to narcotic agent - Left lower quadrant pain - Obesity, unspecified - Other longterm (current) drug therapy - Urinary tract infection, site not specified [facility]07[facility]2023 [facility] [place]: Emergency DIAGNOSES: - Arthrodesis status - Other acute postprocedural pain - Other specified health status - Back Pain 09/09/2022 17:18 [facility] [place] Emergency COMPLAINT: - FALL DIAGNOSES: - Allergy status to other drugs, medicaments and biological substances - Contusion of abdominal wall, initial encounter - Low back pain, unspecified - Other longterm (current) drug therapy - Unspecified fall, initial encounter INPATIENT VISIT TRACKING (12 MO.) 03/14/2023 11:46 [facility] Mare FULLER (Mare Garvey) TYPE: Inpatient Rehab DIAGNOSES: - Arthrodesis status - Body mass index [BMI] 40.0-44.9, adult - Dorsalgia, unspecified - Hyperlipidemia, unspecified - Other spondylosis with myelopathy, thoracic region - Type 2 diabetes mellitus with hyperglycemia - Urinary tract infection, site not specified - Intractable Back Pain 03/07/2023 18:12 [facility] Mare FULLER (Mare [place]) TYPE: Surgical Services DIAGNOSES: - Arthrodesis status - Other acute postprocedural pain - Other specified health status 02/25/2023 05:46 [facility] TYPE: Neuro Surgery DIAGNOSES: . Acute kidney failure, unspecified . Arthrodesis status . Other spondylosis with myelopathy, thoracic region [email or web address]
[2023-07-14 17:35] LABS: BASOPHILS 0.9 % (0-2); EOSINOPHILS 3.3 % (0-6); HEMATOCRIT 42.2 % (35.0-50.0); HEMOGLOBIN 13.9 g/dL (12.0-18.0); LYMPHOCYTES 16.1 % (24-44); MCH 28.7 (27-36); MCHC 33.1 g/dl (30-36); MCV 86.7 fl (81-99); MONOCYTES 8.9 % (0-12); NEUTROPHILS 70.8 % (39-80); PLATELET COUNT 226 K/uL (140-440); RBC 4.86 M/ul (4.3-5.7); RDW 15.9 (10.5-15.0)
[2023-07-14 17:58] LABS: ALBUMIN 3.9 g/dL (3.4-5.0); ALBUMIN/GLOBULIN RATIO 1.15 (1.1-2.4); BILIRUBIN, TOTAL 0.4 ng/dL (0.2-1.0); BUN/CREATININE RATIO 22.4 (6.0-28.6); CALCIUM 9.2 mg/dL (8.5-10.1); CREATININE, SERUM 1.25 mg/dL (0.70-1.30); PROTEIN, TOTAL 7.3 g/dL (6.4-8.2)
[2023-07-14] MEDS ORDERED: PROTONIX40 MG PO (18:54)
[2023-07-14 19:07] VITALS: BP 136/77
== END 2023-07-14 19:07 | disposition home or self-care (01) ==
LOC: ED 17:07
PROVIDERS: Emergency Medicine
DX: K92.2 Gastrointestinal hemorrhage, unspecified (principal); E66.9 Obesity, unspecified; Z68.41 Body mass index [BMI] 40.0-44.9, adult; Z88.8 Allergy status to other drugs, medicaments and biological substances; Z79.899 Other long term (current) drug therapy
CPT/HCPCS: 36415; 80053; 83690; 85025; 96374; 99284-25; C9113

== ENCOUNTER 2023-07-20 08:03 | Emergency (ER) | payer BC ==
[~2023-07-20] VITALS: Ht 188 cm; Wt 155.1 kg
[~2023-07-20 08:03] MED LIST changes: +PROTONIX40 MG PO
--- OUTSIDE RECORDS SUMMARY | 2023-07-20 08:06 | XMS ---
PreManage Notification: ROSARIO OCHOA Security Adhesion Tester Events No recent Security Events currently on file CRITERIA MET - PDM - [facility] - 2 Visits in 30 Days CARE PROVIDERS There are no care providers on record at this time. Miley has no Care Guidelines for this patient. Care History Medical/Surgical 02/11/2019 [facility] - CHW CONTACTED UROLOGIST- DR WALLS OFFICE ABOUT PATIENT ED VISIT. ED NOTES PROVIDED. E.Silvia VISIT COUNT (12 MO.) [address] (Mare Garvey) TOTAL 5 NOTE: Visits indicate total known visits. ED/UCC VISIT TRACKING (12 MO.) 07/20/2023 08:[address] [facility] [place] TYPE: Emergency COMPLAINT: - CONSTIPATION 07/14/2023 17:[address] [facility] TYPE: Emergency COMPLAINT: - ABDOMINAL PAIN DIAGNOSES: - Allergy status to other drugs, medicaments and biological substances - Body mass index [BMI] 40.0-44.9, adult - Gastrointestinal hemorrhage, unspecified - Obesity, unspecified - Other assistant terminal manager (current) drug therapy 06/21/2023 07:[address] [facility] [place] TYPE: Emergency COMPLAINT: - ABDOMINAL PAIN DIAGNOSES: - Allergy status to narcotic agent - Left lower quadrant pain - Obesity, unspecified - Other assistant terminal manager (current) drug therapy - Urinary tract infection, site not specified 03/07/2023 18:12 [facility] Al FULLER (Mare Garvey) TYPE: Emergency DIAGNOSES: - Arthrodesis status - Other acute postprocedural pain - Other specified health status - Back Pain 09/09/2022 17:[address] [facility] TYPE: Emergency COMPLAINT: - FALL DIAGNOSES: - Allergy status to other drugs, medicaments and biological substances - Contusion of abdominal wall, initial encounter - Low back pain, unspecified - Other usp (current) drug therapy - Unspecified fall, initial encounter INPATIENT VISIT TRACKING (12 MO.) 03/14[facility]2023 11[facility] [place]: Inpatient Rehab DIAGNOSES: - Arthrodesis status - Body mass index [BMI] 40.0-44.9, adult - Dorsalgia, unspecified - Hyperlipidemia, unspecified - Other spondylosis with myelopathy, thoracic region - Type 2 diabetes mellitus with hyperglycemia - Urinary tract infection, site not specified - Intractable Back Pain 03/07/2023 18:12 [facility] [place] TYPE: Surgical Services DIAGNOSES: - Arthrodesis status - Other acute postprocedural pain - Other specified health status 02/25/2023 05:46 [facility] TYPE: Neuro Surgery DIAGNOSES: . Acute kidney failure, unspecified . Arthrodesis status . Other spondylosis with myelopathy, thoracic region [email or web address]
[2023-07-20 08:47] LABS: BASOPHILS 0.5 % (0-2); EOSINOPHILS 3.3 % (0-6); HEMATOCRIT 40.4 % (35.0-50.0); HEMOGLOBIN 13.5 g/dL (12.0-18.0); LYMPHOCYTES 15.7 % (24-44); MCH 29.1 (27-36); MCHC 33.5 g/dl (30-36); MCV 86.8 fl (81-99); MONOCYTES 7.8 % (0-12); NEUTROPHILS 72.7 % (39-80); PLATELET COUNT 240 K/uL (140-440); RBC 4.65 M/ul (4.3-5.7); RDW 15.9 (10.5-15.0)
[2023-07-20 09:05] LABS: ALBUMIN 4.2 g/dL (3.4-5.0); ALBUMIN/GLOBULIN RATIO 1.17 (1.1-2.4); ANION GAP 13.8 (7-21); BILIRUBIN, TOTAL 0.4 ng/dL (0.2-1.0); BUN/CREATININE RATIO 18.57 (6.0-28.6); CALCIUM 9.1 mg/dL (8.5-10.1); CREATININE, SERUM 1.4 mg/dL (0.70-1.30); POTASSIUM 3.8 mmol/L (3.5-5.1); PROTEIN, TOTAL 7.8 g/dL (6.4-8.2)
[2023-07-20 09:55] LABS: BILIRUBIN, URINE NEGATIVE (negative); BLOOD/HGB, URINE NEGATIVE (Negative); KETONE, URINE NEGATIVE (Negative); LEUK ESTERASE, URINE NEGATIVE (negative); NITRITE, URINE NEGATIVE (negative); PH, URINE 5.5 (5-7)
[2023-07-20] MEDS ORDERED: DICYCLOMINE HCL20 MG PO (10:18)
[2023-07-20 10:35] VITALS: BP 143/91
== END 2023-07-20 10:35 | disposition home or self-care (01) ==
LOC: ED 08:03
PROVIDERS: Emergency Medicine
DX: R10.9 Unspecified abdominal pain (principal); R14.0 Abdominal distension (gaseous); E66.9 Obesity, unspecified; Z68.41 Body mass index [BMI] 40.0-44.9, adult; Z88.8 Allergy status to other drugs, medicaments and biological substances; Z88.2 Allergy status to sulfonamides; Z88.1 Allergy status to other antibiotic agents; Z79.899 Other long term (current) drug therapy
CPT/HCPCS: 36415; 74177; 80053; 81003; 83690; 85025; J1170; J7030; Q9967

== ENCOUNTER 2024-02-05 06:00 | Day surgery (SDC) | payer BC ==
[~2024-02-05] VITALS: Ht 188 cm; Wt 159.0 kg
[~2024-02-05 06:00] MED LIST changes: +CARVEDILOL12.5 MG PO; +CELEBREX200 MG PO; +DICYCLOMINE HCL20 MG PO; +HYDROCHLOROTHIA25 MG PO; +IBUPROFEN200 M1 PO; +fentaNYL citrate 100 MCG/2 ML VIAL IV PRN
[2024-02-05 06:24] VITALS: BP 126/70
[2024-02-05] MEDS ORDERED: propofoL 200 MG/20 ML VIAL ONE (06:47)
[2024-02-05] MEDS ORDERED: IBLOOD GLUCOSE TEST STRIP 1 EA TEST VI PRN (07:00)
[2024-02-05] MEDS ORDERED: LACTATED RINGER'S 1,000 ML IV SCH (07:00)
[2024-02-05] MEDS ORDERED: LIDOCAINE HCL 1% 5 ML SDV INJ ONE (07:00)
[2024-02-05] MEDS ORDERED: CEFAZOLIN SODIUM 3 GM/30 ML SYR IV SCH (07:00)
--- NOTE | 2024-02-05 08:33 | NUR ---
02/05/24 0833 Sheets,Bev 0812 PT ARRIVED TO PACU ON 10L VIA WITH ORAL AIRWAY AND NASAL AIRWAY IN PLACE. RESP EVEN AND UNLABORED. PT STARTING TO MOVE ON TO HIS BACK, AND BE REACTIVE. PT UNABLE TO FOLLOW COMMANDS. 0814 PT OPENED HIS EYES AND ORAL AIRWA AND NASAL AIRWAY REMOVED. PT STARTED COUGHING AND ENCOUARGED TO DO SO. 0815 O2 REMOVED AND HOB INCREASED. 0827 MD AT BEDSIDE TALKING TO PT. PT REPORTS 8/10 GAS PAIN. PT ENOCUARGED TO PASS GAS WHEN ABLE, PT ABLE TO PASS LARGE AMOUNT OF GAS AND REPORTS PAIN HAS DECREASED. PT SITTING IN HIGH FOWLERS AND DENIES CONCERNS.
[2024-02-05 08:47] VITALS: BP 112/68
--- NOTE | 2024-02-05 09:23 | OR ---
[facility] [address] [place], [place] [address] Signed DATE OF OPERATION: 02/05/2024 SURGEON: Betzaida Burton MD PREOPERATIVE DIAGNOSES: 1. Personal history of colonic polyps in 2018 at age 42. 2. Long redundant colon. 3. Chronic constipation. 4. Internal hemorrhoids. POSTOPERATIVE DIAGNOSES: 1. Onvh-lo-oolgerxn pandiverticulosis. 2. Qrmzxlt-rr-rroyoher internal hemorrhoids. 3. Long redundant colon. 4. 4 mm polyp mid right colon. 5. 5 mm polyp at hepatic flexure. 6. 7 mm polyp at the distal transverse colon. PROCEDURE: Colonoscopy with hot biopsy. ESTIMATED BLOOD LOSS: None. INDICATIONS: Zaheer is a 48-year-old obese gentleman, who has had significant multiple back surgeries in the femur and a magali in his left femur. He has to use a walker to ambulate. It is amazing and he is still able to work in our local [employer]. He has been told after his last three back fusion that he really needs to be on disability. His last fusion really affected him and he is thinking about disability more and more. He is worried he would not have enough money for his family. We had done a colonoscopy for him a number of weeks ago. However, he took his daughter over to the [facility] about an hour away for a dental appointment to have some teeth removed. He did not start his prep to late in the day. As consequently, his prep was quite poor. We know he had adenomatous polyps back in 2018 at age of 42. We know he has internal hemorrhoids. He has a long redundant colon. Of course, chronic constipation with all his back surgeries and pain medications. We had him come back to the office and we decided he would take an entire bottle of magnesium citrate the night before his prep. Then he would do the entire gallon of polyethylene glycol the next day along with eight Dulcolax tablets throughout the day. On this occasion, his bowel prep was much better. He still had a Electronically Signed By: BETZAIDA BURTON MD 02/05/24 0923 PATIENT NAME: ZAHEER OCHAO OPERATIVE REPORT DATE OF : 75 REPORT #: [id number] PHYSICIAN: BETZAIDA BURTON MD PCP: JUSTIN GIORDANO REPORT IS CONFIDENTIAL AND NOT TO BE RELEASED WITHOUT AUTHORIZATION [facility] [address] [place], [place] [address] Signed couple areas of liquid particulate stool matter that I could not quite suction out completely in the left colon in the rectum. But overall much much improved. Of course, he is very familiar with colonoscopy. He knows there is risk including, but not limited to gas bloating, crampy abdominal pain, bleeding, perforation requiring surgery, and missed diagnosis. He always requires monitored anesthesia care propofol infusion given his rather large size, very full round face, heavy neck, chest and abdomen along with his sleep apnea and advanced medical issues. He had expressed understanding and wished to proceed. He told me his son will be taking him home afterwards. PROCEDURE IN DETAIL: Zaheer was taken into our endoscopy suite and placed in the left lateral decubitus position. He was given monitored anesthesia care of close airway management per our nurse compensation and benefits manager. A digital rectal exam was performed. He has no external hemorrhoids. He had good sphincter tone. No masses noted. The adult colonoscope was introduced and advanced under direct visualization of camera. It took some abdominal compression and increased propofol to get the camera around hepatic flexure and down into the cecum itself. We could easily see the appendiceal orifice and ileocecal valve. The scope was slowly withdrawn. We took pictures throughout for photodocumentation. He has diverticula in the right, left and sigmoid colon. They were moderate in size, few to moderate in number and scattered about. The above-mentioned polyps were easily removed with the help of hot biopsy forceps. He had some liquid particulate stool matter in the left colon and his rectum. I could not quite suction out completely. However, his prep was quite acceptable on this occasion. Once in the rectum, the scope was retroflexed. He has some very prominent veins in the rectum headed down towards the hemorrhoid columns. It was hard for me to see the hemorrhoid columns on this occasion because of the liquid particulate stool matter. However, he does have a fatty liver and he probably has mild esophageal varices in the distal midesophagus on his previous upper endoscopy. After this, the gas was suctioned out, colonoscope removed. Zaheer tolerated the procedure quite well. RECOMMENDATIONS: I will see Zaheer back in my office in 7 to 14 days to review his results. I suspect he will be on the five year plan. He will always be monitored anesthesia care. He always needs a substantial bowel prep which on this occasion include an entire ball of magnesium citrate, eight Dulcolax pills and entire gallon of polyethylene glycol. Betzaida Burton MD Electronically Signed By: BETZAIDA BURTON MD 02/05/24 0923 PATIENT NAME: ZAHEER OCHOA OPERATIVE REPORT DATE OF : 75 REPORT #: [id number] PHYSICIAN: BETZAIDA BURTON MD PCP: JUSTIN GIORDANO REPORT IS CONFIDENTIAL AND NOT TO BE RELEASED WITHOUT AUTHORIZATION [address] [place] [address] Signed ALB/MODL /[id number] cc: LAMIN Groves MD Copies: JUSTIN GIORDANO ANDREW L MD ~ Electronically Signed By: BETZAIDA BURTON MD 02/05/24 0923 PATIENT NAME: ZAHEER OCHOA OPERATIVE REPORT DATE OF : 75 REPORT #: [id number] PHYSICIAN: BETZAIDA BURTON MD PCP: JUSTIN GIORDANO REPORT IS CONFIDENTIAL AND NOT TO BE RELEASED WITHOUT AUTHORIZATION
[2024-02-05] MEDS ORDERED: LACTATED RINGER'S 1,000 ML IV ONE (09:46)
--- NOTE | 2024-02-09 17:38 | PATH ---
[facility] [address] [place], [place] [address] Signed SPECIMEN(S): A MID ASCENDING/RIGHT COLON POLYP SPECIMEN(S): B HEPATIC FLEXURE COLON POLYP SPECIMEN(S): C DISTAL TRANSVERSE COLON POLYP SPECIMEN SOURCE: A. MID ASCENDING/RIGHT COLON POLYP B. HEPATIC FLEXURE COLON POLYP C. DISTAL TRANSVERSE COLON POLYP CLINICAL HISTORY: Colonoscopy. History of colon polyps FINAL PATHOLOGIC DIAGNOSIS: A. Mid ascending/right colon polyp: - Serrated polyp/adenoma. B. Hepatic flexure colon polyp: - Tubular adenoma (two fragments). C. Distal transverse colon polyp: - Tubular adenoma (one fragment). JVR:shekhar MICROSCOPIC EXAMINATION: Histologic sections of all submitted blocks are examined by light microscopy. These findings, together with the gross examination, support the pathologic diagnosis. GROSS DESCRIPTION: A. The specimen, labeled and designated "Werhan, mid ascending/right colon polyp," is received in formalin and consists of one giraldo soft tissue fragment, 0.3 cm. Entirely submitted in (A1). B. The specimen, labeled and designated "Werhan, hepatic flexure colon polyp," is received in formalin and consists of two giraldo soft tissue fragments, ranging from 0.2-0.3 cm. Entirely submitted in (B1). C. The specimen, labeled and designated "Werhan, distal transverse colon polyp," is received in formalin and consists of one giraldo soft tissue fragment, 0.2 cm. Entirely submitted in (C1). VB (under the direct supervision of a pathologist) The Gross Description was prepared using a voice recognition system. The report was reviewed for accuracy; however, sound-alike word errors, addition and/or deletions may occur. If there is any PATIENT NAME: ROSARIO OCHOA PATHOLOGY DATE OF : 75 REPORT #: [id number] PHYSICIAN: RADHA PATHOLOGY PCP: JUSTIN GIORDANO REPORT IS CONFIDENTIAL AND NOT TO BE RELEASED WITHOUT AUTHORIZATION [facility] [address] [place], [place] [address] Signed question about this report, please contact Client Services. ADDITIONAL NOTES: Immunohistochemical and/or in situ hybridization studies if performed in this case included appropriate positive controls that reacted as expected. This test was developed and its performance characteristics determined by [facility]. It has not been cleared or approved by the U.S. Food and Drug Administration. The FDA has determined that such clearance or approval is not necessary. This test is used for clinical purposes. It should not be regarded as investigational or for research. [facility] is certified under the Clinical Laboratory Improvement Amendments of 1988 (CLIA) as qualified to perform high complexity clinical laboratory testing. PERFORMING LABORATORY: Technical component was performed by [facility], [address] [place] [address] (CLIA# [id number]). Professional interpretation was performed by [facility], [facility], [address] [place] [id number] (CLIA#: [id number]) Diagnostician: Saleem Zhou MD Pathologist Electronically Signed 02/09/2024 Copies: ~ PATIENT NAME: ROSARIO OCHOA PATHOLOGY DATE OF : 75 REPORT #: [id number] PHYSICIAN: RADHA PATHOLOGY PCP: JUSTIN GIORDANO REPORT IS CONFIDENTIAL AND NOT TO BE RELEASED WITHOUT AUTHORIZATION
== END 2024-02-05 09:00 | disposition home or self-care (01) ==
LOC: DS 06:00
PROVIDERS: ATTEND Colon & Rectal Surgery
PROC: 0DBL8ZX Excision of Transverse Colon, Via Natural or Artificial Opening Endoscopic, Diagnostic (ICD-10-PCS; 2024-02-05)
PROC: 0DBF8ZX Excision of Right Large Intestine, Via Natural or Artificial Opening Endoscopic, Diagnostic (ICD-10-PCS; principal; 2024-02-05 07:30)
DX: D12.2 Benign neoplasm of ascending colon (principal); D12.3 Benign neoplasm of transverse colon; K57.30 Diverticulosis of large intestine without perforation or abscess without bleeding; K64.8 Other hemorrhoids; Q43.8 Other specified congenital malformations of intestine; Z86.010 Personal history of colon polyps; E78.00 Pure hypercholesterolemia, unspecified; G89.29 Other chronic pain; K21.9 Gastro-esophageal reflux disease without esophagitis; K29.90 Gastroduodenitis, unspecified, without bleeding; I85.00 Esophageal varices without bleeding; K44.9 Diaphragmatic hernia without obstruction or gangrene; E78.5 Hyperlipidemia, unspecified; G47.33 Obstructive sleep apnea (adult) (pediatric); E66.01 Morbid (severe) obesity due to excess calories; Z68.42 Body mass index [BMI] 45.0-49.9, adult; Z88.1 Allergy status to other antibiotic agents; Z88.8 Allergy status to other drugs, medicaments and biological substances; Z79.899 Other long term (current) drug therapy
CPT/HCPCS: 00811; J0690; J2704; J7121

== ENCOUNTER 2024-04-30 18:24 | Emergency (ER) | payer BC ==
[~2024-04-30] VITALS: Ht 188 cm; Wt 162.0 kg
[~2024-04-30 18:24] MED LIST changes: -fentaNYL citrate 100 MCG/2 ML VIAL IV PRN
[2024-04-30] MEDS ORDERED: KETOROLAC TROMETHAMINE 60 MG/2 ML VIAL IM ONE (18:45)
[2024-04-30] MEDS ORDERED: LIDOCAINE HCL 4% 1 EACH PATCH TD ONE (18:45)
[2024-04-30] MEDS ORDERED: PREDNISONE20 MG PO (19:30)
[2024-04-30] MEDS ORDERED: LIDODERM1 EACH TOP (19:30)
[2024-04-30 19:37] VITALS: BP 118/70
[2024-04-30] MEDS ORDERED: LIDOCAINE PATCH REMOVAL 1 EA TD SCH (21:00)
== END 2024-04-30 19:39 | disposition home or self-care (01) ==
LOC: ED 18:24
DX: S29.9XXA Unspecified injury of thorax, initial encounter (principal); X50.1XXA Overexertion from prolonged static or awkward postures, initial encounter; E66.9 Obesity, unspecified; Z68.42 Body mass index [BMI] 45.0-49.9, adult; Z88.8 Allergy status to other drugs, medicaments and biological substances; Z88.2 Allergy status to sulfonamides; Z88.1 Allergy status to other antibiotic agents; Z79.84 Long term (current) use of oral hypoglycemic drugs; Z79.899 Other long term (current) drug therapy
CPT/HCPCS: 71046; 96372; 99283-25; A9270; J1885

== ENCOUNTER 2024-09-01 00:56 | Emergency (ER) | payer BC ==
[~2024-09-01] VITALS: Ht 188 cm; Wt 164.7 kg
[~2024-09-01 00:56] MED LIST changes: +PREDNISONE20 MG PO
[2024-09-01 01:21] LABS: BILIRUBIN, URINE NEGATIVE (negative); BLOOD/HGB, URINE MODERATE (Negative); KETONE, URINE NEGATIVE (Negative); LEUK ESTERASE, URINE NEGATIVE (negative); NITRITE, URINE NEGATIVE (negative)
[2024-09-01 01:30] LABS: RED BLOOD CELLS, URINE 21-40 /hpf (0-5)
[2024-09-01 01:31] LABS: BACTERIA, URINE 1+ /hpf (negative); CASTS, URINE NONE SEEN \\lpf; COLLECTION TYPE, URINE CLEAN CATCH; CRYSTALS, URINE AMORPHOUS PHOSPH 3+ (0-1+); EPITHELIAL CELLS, URINE SQUAMOUS 1+ /lpf (0-1+); REFLEX CULTURE, URINE No (No)
[2024-09-01 02:07] LABS: HEMOGLOBIN 14.6 g/dL (12.0-18.0); PLATELET COUNT 185 K/uL (140-440); RDW 15.1 (10.5-15.0)
[2024-09-01 02:10] LABS: BASOPHILS 0.6 % (0-2); EOSINOPHILS 2.8 % (0-6); HEMATOCRIT 43.9 % (35.0-50.0); LYMPHOCYTES 11.7 % (24-44); MCH 30.1 (27-36); MCHC 33.2 g/dl (30-36); MCV 90.6 fl (81-99); MONOCYTES 7.5 % (0-12); NEUTROPHILS 77.4 % (39-80); RBC 4.84 M/ul (4.3-5.7)
[2024-09-01 02:23] LABS: ALBUMIN 3.6 g/dL (3.4-5.0); ALBUMIN/GLOBULIN RATIO 1.03 (1.1-2.4); ANION GAP 14.6 (7-21); BILIRUBIN, TOTAL 0.4 ng/dL (0.2-1.0); BUN/CREATININE RATIO 20.33 (6.0-28.6); CALCIUM 9.2 mg/dL (8.5-10.1); CREATININE, SERUM 1.18 mg/dL (0.70-1.30); POTASSIUM 3.6 mmol/L (3.5-5.1); PROTEIN, TOTAL 7.1 g/dL (6.4-8.2)
[2024-09-01 03:53] VITALS: BP 145/85
== END 2024-09-01 03:54 | disposition home or self-care (01) ==
LOC: ED 00:56
PROVIDERS: Internal Medicine
DX: R31.9 Hematuria, unspecified (principal); N20.0 Calculus of kidney; Z88.8 Allergy status to other drugs, medicaments and biological substances; Z88.2 Allergy status to sulfonamides; Z88.1 Allergy status to other antibiotic agents; Z79.84 Long term (current) use of oral hypoglycemic drugs; Z79.899 Other long term (current) drug therapy
CPT/HCPCS: 36415; 74178; 80053; 81001; 85025; 85060; 99284-25; Q9967

== ENCOUNTER 2024-11-15 07:59 | Emergency (ER) | payer BC ==
[~2024-11-15] VITALS: Ht 188 cm; Wt 166.0 kg
[2024-11-15] MEDS ORDERED: CARVEDILOL6.25 MG PO (08:13)
[2024-11-15] MEDS ORDERED: PREGABALIN75 MG PO (08:13)
[2024-11-15] MEDS ORDERED: CEPHALEXIN MONOHYDRATE 500 MG CAP PO ONE (08:15)
[2024-11-15] MEDS ORDERED: CEPHALEXIN500 M1 PO (08:23)
[2024-11-15 08:53] VITALS: BP 121/74
== END 2024-11-15 08:54 | disposition home or self-care (01) ==
LOC: ED 07:59
DX: L03.115 Cellulitis of right lower limb (principal); G62.9 Polyneuropathy, unspecified; Z86.718 Personal history of other venous thrombosis and embolism; Z88.8 Allergy status to other drugs, medicaments and biological substances; Z88.2 Allergy status to sulfonamides; Z88.1 Allergy status to other antibiotic agents; Z79.84 Long term (current) use of oral hypoglycemic drugs; Z79.1 Long term (current) use of non-steroidal anti-inflammatories (NSAID); Z79.899 Other long term (current) drug therapy
CPT/HCPCS: 93971; 99284-25; A9270

== ENCOUNTER 2025-03-29 14:26 | Emergency (ER) | payer BC ==
[~2025-03-29] VITALS: Ht 188 cm; Wt 166.2 kg
[~2025-03-29 14:26] MED LIST changes: +CARVEDILOL6.25 MG PO; +CEPHALEXIN500 M1 PO; +PREGABALIN75 MG PO
[2025-03-29] MEDS ORDERED: ACETAMINOPHEN 500 MG TAB PO ONE (16:00)
[2025-03-29] MEDS ORDERED: DOXYCYCLINE HYCLATE 100 MG CAP PO ONE (16:00)
[2025-03-29] MEDS ORDERED: DOXYCYCLINE HY100 MG PO (16:03)
[2025-03-29] MEDS ORDERED: HYDROCODON-ACE1 EA11 PO (16:03)
[2025-03-29 16:11] VITALS: BP 146/78
== END 2025-03-29 16:12 | disposition home or self-care (01) ==
LOC: ED 14:26
DX: J20.9 Acute bronchitis, unspecified (principal); R07.81 Pleurodynia; Z88.5 Allergy status to narcotic agent; Z88.8 Allergy status to other drugs, medicaments and biological substances; Z79.899 Other long term (current) drug therapy
CPT/HCPCS: 71046; 99284-25; A9270

== ENCOUNTER 2025-04-16 07:52 | Emergency (ER) | payer BC ==
[~2025-04-16] VITALS: Ht 188 cm; Wt 166.9 kg
[~2025-04-16 07:52] MED LIST changes: +DOXYCYCLINE HY100 MG PO
--- OUTSIDE RECORDS SUMMARY | 2025-04-16 07:58 | XMS ---
PreManage Notification: ROSARIO OCHOA Security Bag [employer] Events No recent Security Events currently on file CRITERIA MET - [facility] - 2 Visits in 30 Days CARE PROVIDERS There are no care providers on record at this time. Miley has no Care Guidelines for this patient. Care History Medical/Surgical 02/11/2019 [facility] \R\- CHW CONTACTED UROLOGIST- DR WALLS OFFICE ABOUT PATIENT ED VISIT. ED NOTES PROVIDED. E.D. VISIT COUNT (12 MO.) 5 [facility]. TOTAL 5 NOTE: Visits indicate total known visits. ED/UCC VISIT TRACKING (12 MO.) 04/16/2025 07:52 [facility] [place] TYPE: Emergency COMPLAINT: - SOB,CHEST TIGHTNESS 03/29/2025 14:26 [facility] [place] TYPE: Emergency COMPLAINT: - RIB PAIN DIAGNOSES: - Acute bronchitis, unspecified - Allergy status to narcotic agent - Allergy status to other drugs, medicaments and biological substances - Other usp (current) drug therapy - Pleurodynia 11/15/2024 08:00 [facility] TYPE: Emergency COMPLAINT: - RT LEG SWELLING DIAGNOSES: - Allergy status to other antibiotic agents - Allergy status to other drugs, medicaments and biological substances - Allergy status to sulfonamides - Cellulitis of right lower limb - FDC (current) use of non-steroidal anti-inflammatories (NSAID) - long term (current) use of oral hypoglycemic drugs - Other usp (current) drug therapy - Personal history of other venous thrombosis and embolism - Polyneuropathy, unspecified - Unspecified open wound, right lower leg, initial encounter 09/01/2024 00:56 [facility] [place] TYPE: Emergency COMPLAINT: - BLOOD IN URINE DIAGNOSES: - Allergy status to other antibiotic agents - Allergy status to other drugs, medicaments and biological substances - Allergy status to sulfonamides - Calculus of kidney - Hematuria, unspecified - FDC (current) use of oral hypoglycemic drugs - Other usp (current) drug therapy 04/30/2024 18:[address] [facility] [place] TYPE: Emergency COMPLAINT: - RIB PAIN DIAGNOSES: - Allergy status to other antibiotic agents - Allergy status to other drugs, medicaments and biological substances - Allergy status to sulfonamides - Body mass index [BMI] 45.0-49.9, adult - FDC (current) use of oral hypoglycemic drugs - Obesity, unspecified - Other terminal operator (current) drug therapy - Overexertion from prolonged static or awkward postures, initial encounter - Pleurodynia - Unspecified injury of thorax, initial encounter INPATIENT VISIT TRACKING (12 MO.) No inpatient visits to display in this time frame [email or web address]
[2025-04-16] MEDS ORDERED: METFORMIN HCL500 M1 PO (08:05)
[2025-04-16 08:07] LABS: BASOPHILS 0.8 % (0.2-1.2); EOSINOPHILS 3.6 % (0.8-7.0); LYMPHOCYTES 14.7 % (21.8-53.1); MCH 29.0 PG (25.7-32.2); MCHC 31.8 g/dL (32.3-36.5); MCV 91.2 fL (79.0-92.2); MONOCYTES 7.1 % (5.3-12.2); NEUTROPHILS 71.6 % (34.0-67.9); RBC 4.87 M/uL (4.63-6.08)
[2025-04-16 08:31] LABS: ALT (SGPT) 24.0 U/L (14-59); AST (SGOT) 21.0 U/L (15-37); GLOMERULAR FILTRATION RATE,EST 57.0 mL/min (>60); PROTEIN, TOTAL 8.0 g/dL (6.4-8.2); UREA NITROGEN 26.0 mg/dL (7-18)
[2025-04-16 08:57] VITALS: BP 144/102
--- NOTE | 2025-04-17 19:17 | EKG ---
[facility] [address] [facility] [place] [address] Signed Sinus rhythm with 1st degree AV block Low voltage QRS Borderline ECG When compared with ECG of 11-NOV-2023 13:41, MD interval has increased QT has shortened Confirmed by Zeynep Blanc MD ([id number]) on 04/17/2025 7:16:42 PM Electronically Signed By: ZEYNEP BLANC MD 04/17/251916 PATIENT NAME: ROSARIO OCHOA Electrocardiogram DATE OF : 75 PHYSICIAN: ZEYNEP BLANC MD REPORT #: [id number] REPORT IS CONFIDENTIAL AND NOT TO BE RELEASED WITHOUT AUTHORIZATION
== END 2025-04-16 08:57 | disposition home or self-care (01) ==
LOC: ED 07:52
PROVIDERS: Emergency Medicine
DX: R07.89 Other chest pain (principal); I10 Essential (primary) hypertension; E78.5 Hyperlipidemia, unspecified; E11.42 Type 2 diabetes mellitus with diabetic polyneuropathy; E66.9 Obesity, unspecified; Z68.42 Body mass index [BMI] 45.0-49.9, adult; Z88.8 Allergy status to other drugs, medicaments and biological substances; Z88.2 Allergy status to sulfonamides; Z88.1 Allergy status to other antibiotic agents; Z79.84 Long term (current) use of oral hypoglycemic drugs; Z79.1 Long term (current) use of non-steroidal anti-inflammatories (NSAID); Z79.899 Other long term (current) drug therapy
CPT/HCPCS: 36415; 71045; 80053; 83735; 84484; 85025; 93005; 93010; 99285-25

== ENCOUNTER 2025-06-02 04:41 | Emergency (ER) | payer BC ==
[~2025-06-02] VITALS: Ht 188 cm; Wt 170.0 kg
[2025-06-02] MEDS ORDERED: KETOROLAC TROMETHAMINE 60 MG/2 ML VIAL IM ONE (05:00)
[2025-06-02 05:01] LABS: BLOOD/HGB, URINE TRACE-I (Negative); KETONE, URINE NEGATIVE (Negative); LEUK ESTERASE, URINE NEGATIVE (negative); NITRITE, URINE NEGATIVE (negative)
[2025-06-02 05:05] LABS: EPITHELIAL CELLS, URINE SQUAMOUS 1+ /lpf (0-1+)
[2025-06-02 05:06] LABS: BACTERIA, URINE RARE /hpf (negative); CASTS, URINE NONE SEEN \\lpf; CRYSTALS, URINE NONE SEEN (0-1+); REFLEX CULTURE, URINE No (No)
[2025-06-02 05:18] LABS: BASOPHILS 0.9 % (0.2-1.2); EOSINOPHILS 3.1 % (0.8-7.0); LYMPHOCYTES 15.8 % (21.8-53.1); MCH 29.3 PG (25.7-32.2); MCHC 32.2 g/dL (32.3-36.5); MCV 91.1 fL (79.0-92.2); MONOCYTES 7.6 % (5.3-12.2); NEUTROPHILS 70.3 % (34.0-67.9); RBC 4.74 M/uL (4.63-6.08)
[2025-06-02 05:36] LABS: ALT (SGPT) 5.0 U/L (14-59); AST (SGOT) 17.0 U/L (15-37); GLOMERULAR FILTRATION RATE,EST 60.0 mL/min (>60); PROTEIN, TOTAL 7.1 g/dL (6.4-8.2); UREA NITROGEN 23.0 mg/dL (7-18)
[2025-06-02] MEDS ORDERED: FLOMAX0.4 MG PO (06:12)
[2025-06-02] MEDS ORDERED: MACROBID 100 M100 MG PO (06:12)
[2025-06-02] MEDS ORDERED: ONDANSETRON ODT8 MG PO (06:12)
[2025-06-02] MEDS ORDERED: ONDANSETRON 4 MG HOME.PACK SL ONE (06:15)
[2025-06-02] MEDS ORDERED: HYDROCODONE BIT/ACETAMINOPHEN 5/325 MG 1 TAB HOME.PACK PO ONE (06:15)
[2025-06-02] MEDS ORDERED: NITROFURANTOIN MONOHYD MACROCR 100 MG HOME.PACK PO ONE (06:15)
[2025-06-02 06:20] VITALS: BP 134/80
== END 2025-06-02 06:21 | disposition home or self-care (01) ==
LOC: ED 04:41
PROVIDERS: Family Medicine
DX: N20.2 Calculus of kidney with calculus of ureter (principal); Z87.442 Personal history of urinary calculi; Z88.2 Allergy status to sulfonamides; Z88.1 Allergy status to other antibiotic agents; Z88.8 Allergy status to other drugs, medicaments and biological substances; Z79.84 Long term (current) use of oral hypoglycemic drugs; Z79.899 Other long term (current) drug therapy
CPT/HCPCS: 36415; 74176; 80053; 81001; 85025; 96372; 99284-25; A9270; J1885